=== PATIENT | male | born 1970 ===

== ENCOUNTER 2016-10-12 12:04 | Inpatient (IN) | payer OTHER ==
[2016-10-12 12:05] VITALS: BMI 27.5
[2016-10-12 15:45] LABS: BASO # 0.1 K/uL (0.0-0.2); EOS % 0.6 % (0.0-4.0); HEMATOCRIT 44.3 % (35.0-51.0); LYMPH # 1.6 K/uL (1.0-4.3); LYMPH % 25.6 % (20.0-40.0); MEAN CORPUSCULAR HEMOGLOBIN 29.7 pg (27.0-31.0); MEAN CORPUSCULAR HGB CONC 33.4 g/dL (33.0-37.0); MEAN PLATELET VOLUME 8.4 fL (7.2-11.7); MONO # 0.5 K/uL (0.0-0.8); MONO % 7.6 % (0.0-10.0); NRBC % 0.1 % (0.0-2.0); RED CELL DISTRIBUTION WIDTH 12.5 % (11.5-14.5); WHITE BLOOD COUNT 6.3 K/uL (4.8-10.8)
[2016-10-12 15:46] LABS: MEAN CELL VOLUME 88.9 fL (80.0-94.0)
[2016-10-12 17:00] LABS: CHLORIDE 96 mmol/L (98-107); POTASSIUM 4.8 mmol/L (3.6-5.2); SODIUM 129 mmol/L (132-148)
[2016-10-12 17:02] LABS: BILIRUBIN,TOTAL 0.9 mg/dL (0.2-1.3); GFR AFRICAN-AMERICAN > 60
[2016-10-12 17:03] LABS: ALB/GLOB RATIO 0.9 (1.0-2.1); ALKALINE PHOSPHATASE 91 U/L (38-126); ALT/SGPT 7 U/L (21-72); AST/SGOT 35 U/L (17-59); BLOOD UREA NITROGEN 21 mg/dL (9-20); CALCIUM 8.3 mg/dl (8.6-10.4); CARBON DIOXIDE 20 mmol/L (22-30); GLUCOSE,RANDOM 323 mg/dL (75-110); TOTAL PROTEIN 7.4 g/dL (6.3-8.3)
--- NOTE | 2016-10-12 17:31 | C.PDOC ---
History Of Present Illness Pt was sent in from the clinic by Dr. Arrieta due to a positive cardiac stress test. Time Seen by Provider: 10/12/16 15:17 History Per: Patient Reports Recently: Treated By A Physician Additional History Per: Prior Records Past Medical History Reviewed: Historical Data, Nursing Documentation, Vital Signs Vital Signs: Last Vital Signs Temp 97.7 F 10/12/16 12:14 Pulse 98 H 10/12/16 17:31 Resp 16 10/12/16 17:31 BP 116/69 10/12/16 17:31 Pulse Ox 95 10/12/16 17:37 - Medical History PMH: Diabetes, HTN - [facility] Procedures DRAINAGE OF L FOOT SUBCU/FASCIA, OPEN APPROACH (07/07/15) RESECTION OF LEFT METATARSAL, OPEN APPROACH (07/07/15) Family History: States: Unknown Family Hx - Social History Hx Tobacco Use: No Hx Alcohol Use: No Hx Substance Use: No - Immunization History Hx Tetanus Toxoid Vaccination: No Hx Influenza Vaccination: No Hx Pneumococcal Vaccination: No Review Of Systems Except As Marked, All Systems Reviewed And Found Negative. Constitutional: Negative for: Fever, Weakness Cardiovascular: Negative for: Chest Pain Respiratory: Positive for: SOB with Excertion. Negative for: Shortness of Breath, Hemoptysis Gastrointestinal: Negative for: Vomiting, Abdominal Pain Musculoskeletal: Negative for: Neck Pain Skin: Negative for: Rash Neurological: Negative for: Weakness, Numbness, Seizures, Altered Mental Status Physical Exam - Physical Exam Appears: Non-toxic, No Acute Distress Skin: Normal Color, Warm, Dry, No Rash Head: Atraumatic, Normacephalic Eye(s): bilateral: PERRL, EOMI Neck: Normal ROM, Supple Cardiovascular: Rhythm Regular Respiratory: Normal Breath Sounds, No Accessory Muscle Use Gastrointestinal/Abdominal: Soft, No Tenderness Back: No CVA Tenderness Extremity: Normal ROM, No Calf Tenderness Neurological/Psych: Oriented x3, Normal Motor, Normal Sensation ED Course And Treatment - Laboratory Results Result Diagrams: 10/12/16 15:39 10/12/16 16:37 ECG: Interpreted By Me, Viewed By Me ECG Rhythm: Sinus Rhythm, L BBB ECG Interpretation: No Changes From Prior Rate From EC O2 Sat by Pulse Oximetry: 95 Pulse Ox Interpretation: Normal Disposition Discussed With DrKevan: Florentino Felix Comment: He accepted pt on hospitalist service. Doctor Will See Patient In The: Hospital Counseled Patient/Family Regarding: Studies Performed, Diagnosis - Disposition Disposition: HOSPITALIZED Disposition Time: 17:45 Condition: FAIR - POA Present On Arrival: Poor Glycemic Control - Clinical Impression Clinical Impression: Abnormal cardiovascular stress test, Left bundle branch block
--- NOTE | 2016-10-12 18:14 | CP.PCM.HP ---
Addendum entered and electronically signed by Brian Simmons DO 10/12/16 20:18: Physical exam Cardio: Regular rate, +S1 and S2, + gallop over left sternal border near notch Original Note: <Brian Simmons - Last Filed: 10/12/16 19:47> History of Present Illness - History of Present Illness History of Present Illness: cc: "it architect sent me in" HPI: Patient is a 46 year old male with PMHx of DM and htn presenting to the ED because his it architect, Dr. Arrieta sent him in. He was told that he had an abnormal stress test and needs a cardiac catheterization. He denies acute complaints, he denies any current chest pain, palpitations, dyspnea at rest or exertion. Per hospital records, patient had stress test on 09/11/16 that showed a defect in the mid-inferior wall and in the apical anterior wall, as well as an EKG that shows a left bundle branch block. PMHx: DM, Htn PSHx: R 3rd-5th digit amputation Allergies: NKDA Fam hx: Father- DM Social hx: Denies smoking or drug hx. Occasional alcohol use Present on Admission - Present on Admission Any Indicators Present on Admission: No Review of Systems - Constitutional Constitutional: absent: Chills, Fever, Weight Loss - EENT Eyes: absent: Blurred Vision, Change in Vision - Cardiovascular Cardiovascular: absent: Chest Pain, Claudication, Irregular Heart Rhythm, Leg Edema, Palpitations - Respiratory Respiratory: absent: Cough, Dyspnea, Hemoptysis, Dyspnea on Exertion, Wheezing - Gastrointestinal Gastrointestinal: absent: Abdominal Pain, Constipation, Diarrhea, Nausea, Vomiting - Genitourinary Genitourinary: absent: Difficulty Urinating, Dysuria - Musculoskeletal Musculoskeletal: absent: Back Pain, Myalgias, Numbness, Tingling - Neurological Neurological: absent: Abnormal Movements, Tingling, Tremor, Weakness - Endocrine Endocrine: absent: Fatigue, Palpitations Past Patient History - Tetanus Immunizations Tetanus Immunization: Unknown - Past Medical History & Family History Past Medical History?: Yes - Past Social History Smoking Status: Never Smoked Chewing Tobacco Use: No Cigar Use: No Alcohol: Occasional Drugs: Denies - CARDIAC Hx Hypertension: Yes - PULMONARY Hx Respiratory Disorders: No - NEUROLOGICAL Hx Neurological Disorder: No - HEENT Hx HEENT Problems: No - RENAL Hx Chronic Kidney Disease: No - ENDOCRINE/METABOLIC Hx Diabetes Mellitus Type 1: Yes - HEMATOLOGICAL/ONCOLOGICAL Hx Blood Disorders: No - INTEGUMENTARY Hx Dermatological Problems: No - MUSCULOSKELETAL/RHEUMATOLOGICAL Hx Musculoskeletal Disorders: No Hx Falls: No - GASTROINTESTINAL Hx Gastrointestinal Disorders: No - GENITOURINARY/GYNECOLOGICAL Hx Genitourinary Disorders: No - PSYCHIATRIC Hx Substance Use: No - SURGICAL HISTORY Hx Surgeries: Yes Other/Comment: Right 3 digits amputation foot - ANESTHESIA Hx Anesthesia: No Hx Anesthesia Reactions: No Hx Malignant Hyperthermia: No Meds Allergies/Adverse Reactions: Allergies Allergy/AdvReac Type Severity Reaction Status Date / Time No Known Allergies Allergy Verified 10/12/16 12:14 Physical Exam - Constitutional Appears: Non-toxic, No Acute Distress - Head Exam Head Exam: ATRAUMATIC, NORMAL INSPECTION, NORMOCEPHALIC - Eye Exam Pupil Exam: NORMAL ACCOMODATION, PERRL - ENT Exam ENT Exam: Mucous Membranes Moist - Neck Exam Neck exam: Positive for: Normal Inspection - Respiratory Exam Respiratory Exam: Clear to Auscultation Bilateral, NORMAL BREATHING PATTERN. absent: Prolonged Expiratory Phase, Rales, Rhonchi, Wheezes - Cardiovascular Exam Cardiovascular Exam: REGULAR RHYTHM, +S1, +S2 - GI/Abdominal Exam GI & Abdominal Exam: Normal Bowel Sounds, Soft. absent: Distended, Firm, Tenderness - Extremities Exam Extremities exam: Positive for: normal capillary refill, pedal pulses present Additional comments: right foot amputation digits 3-5, small area of ulceration near former area of 3rd digit - Neurological Exam Neurological exam: Alert, CN II-XII Intact, Oriented x3 - Psychiatric Exam Psychiatric exam: Normal Affect, Normal Mood - Skin Skin Exam: Dry, Intact, Normal Color, Warm Results - Vital Signs Recent Vital Signs: Last Vital Signs Temp 97.7 F 10/12/16 12:14 Pulse 98 H 10/12/16 17:31 Resp 16 10/12/16 17:31 BP 116/69 10/12/16 17:31 Pulse Ox 95 10/12/16 17:46 - Labs Result Diagrams: 10/12/16 15:39 10/12/16 16:37 Assessment & Plan (1) Positive cardiac stress test Status: Acute Comment: Nuclear Stress Test- 09/11/16- defect in mid-inferior wall, defect in apical anterior wall. EKG- LBBB. Consult cardio- Dr. Arrieta. Consult cardio- Dr. Montague. Continue Coreg 3.125mg PO BID. Continue Asa 81mg PO Daily. Continue Simvastatin 20mg PO HS (equivalent). f/u HgbA1C. f/u FLP. f/u ROMIs x 2, MADAY negative x1. BNP 1140 (2) Diabetes mellitus Status: Chronic Comment: f/u HgbA1C. started on Heart Healthy, mod CHO diet. accuchecks ACHS. RISS. Hold metformin due to possible cardiac cath (3) Diabetic ulcer of foot associated with diabetes mellitus due to underlying condition, limited to breakdown of skin Status: Acute Comment: consult podiatry- Dr. Soler (4) Prophylactic measure Status: Acute Comment: Pepcid 20mg PO BID. Heparin 5000U SC Q8h. SCDs <Florentino Felix M - Last Filed: 10/13/16 14:06> Results - Vital Signs Recent Vital Signs: Last Vital Signs Temp 98.0 F 10/13/16 07:00 Pulse 94 H 10/13/16 08:05 Resp 20 10/13/16 07:00 BP 122/81 10/13/16 07:00 Pulse Ox 98 10/13/16 07:00 - Labs Result Diagrams: 10/13/16 06:47 10/13/16 06:47 Labs: Laboratory Results - last 24 hr 10/12/16 10/12/16 10/13/16 22:09 22:55 02:50 WBC RBC Hgb Hct MCV MCH MCHC RDW Plt Count MPV Neut % (Auto) Lymph % (Auto) Cross % (Auto) Eos % (Auto) Baso % (Auto) Neut # Lymph # Cross # Eos # Baso # Sodium Potassium Chloride Carbon Dioxide Anion Gap BUN Creatinine Est GFR ( Amer) Est GFR (Non-Af Amer) POC Glucose (mg/dL) 371 H 318 H Random Glucose Hemoglobin A1c Calcium Total Bilirubin AST ALT Alkaline Phosphatase Total Creatine Kinase 25 L CK-MB (Mass) 0.84 Troponin I, Quant < 0.0120 Total Protein Albumin Globulin Albumin/Globulin Ratio Triglycerides Cholesterol LDL Cholesterol Direct HDL Cholesterol 10/13/16 10/13/16 10/13/16 04:21 06:32 06:47 WBC 5.2 RBC 4.77 Hgb 14.2 Hct 43.0 MCV 90.1 MCH 29.7 MCHC 33.0 RDW 12.1 Plt Count 300 MPV 8.4 Neut % (Auto) 66.4 Lymph % (Auto) 23.9 Cross % (Auto) 7.8 Eos % (Auto) 1.0 Baso % (Auto) 0.9 Neut # 3.5 Lymph # 1.2 Cross # 0.4 Eos # 0.0 Baso # 0.0 Sodium 135 Potassium 4.0 Chloride 96 L Carbon Dioxide 26 Anion Gap 17 BUN 17 Creatinine 0.6 L Est GFR ( Amer) > 60 Est GFR (Non-Af Amer) > 60 POC Glucose (mg/dL) 320 H Random Glucose 326 H Hemoglobin A1c 14.6 H Calcium 8.4 L Total Bilirubin 0.4 AST 18 ALT 17 L D Alkaline Phosphatase 85 Total Creatine Kinase 28 L CK-MB (Mass) 0.68 Troponin I, Quant < 0.0120 Total Protein 6.8 Albumin 3.3 L Globulin 3.6 Albumin/Globulin Ratio 0.9 L Triglycerides 201 H Cholesterol 171 LDL Cholesterol Direct 111 HDL Cholesterol 19 L 10/13/16 12:02 WBC RBC Hgb Hct MCV MCH MCHC RDW Plt Count MPV Neut % (Auto) Lymph % (Auto) [place] % (Auto) Eos % (Auto) Baso % (Auto) Neut # Lymph # Cross # Eos # Baso # Sodium Potassium Chloride Carbon Dioxide Anion Gap BUN Creatinine Est GFR ( Amer) Est GFR (Non-Af Amer) POC Glucose (mg/dL) 361 H Random Glucose Hemoglobin A1c Calcium Total Bilirubin AST ALT Alkaline Phosphatase Total Creatine Kinase CK-MB (Mass) Troponin I, Quant Total Protein Albumin Globulin Albumin/Globulin Ratio Triglycerides Cholesterol LDL Cholesterol Direct HDL Cholesterol Attending/Attestation - Attestation I have personally seen and examined this patient.: Yes I have fully participated in the care of the patient.: Yes I have reviewed all pertinent clinical information: Yes Notes (Text): 10/13/16 14:04 Patient was seen and examined at bedside with the resident at the time of admission Patient doesn't have any chest pain at this time We will request cardiology evaluation for further recommendations We will also request podiatry evaluation because there is no oozing on the amputated foot base Discussed the plan of care with the emergency medical technician basic and agree with the above history and physical and assessment/plan by the resident.
[2016-10-12] MEDS: (Novolin R) Insulin Human Regular 100 units/ml vial SC SCH ×2 (22:04→22:14)
[2016-10-13 07:18] LABS: BASO % 0.9 % (0.0-2.0); LYMPH # 1.2 K/uL (1.0-4.3); LYMPH % 23.9 % (20.0-40.0); MEAN CELL VOLUME 90.1 fL (80.0-94.0); MEAN CORPUSCULAR HEMOGLOBIN 29.7 pg (27.0-31.0); MEAN PLATELET VOLUME 8.4 fL (7.2-11.7); MONO # 0.4 K/uL (0.0-0.8); MONO % 7.8 % (0.0-10.0); NRBC % 0.1 % (0.0-2.0); RED CELL DISTRIBUTION WIDTH 12.1 % (11.5-14.5); WHITE BLOOD COUNT 5.2 K/uL (4.8-10.8)
[2016-10-13 07:36] LABS: CHLORIDE 96 mmol/L (98-107)
[2016-10-13 07:37] LABS: SODIUM 135 mmol/L (132-148)
[2016-10-13 07:39] LABS: CHOLESTEROL 171 mg/dL (0-199)
[2016-10-13 07:40] LABS: ALB/GLOB RATIO 0.9 (1.0-2.1); ALKALINE PHOSPHATASE 85 U/L (38-126); ALT/SGPT 17 U/L (21-72); AST/SGOT 18 U/L (17-59); BILIRUBIN,TOTAL 0.4 mg/dL (0.2-1.3); BLOOD UREA NITROGEN 17 mg/dL (9-20); CARBON DIOXIDE 26 mmol/L (22-30); GFR AFRICAN-AMERICAN > 60; GLUCOSE,RANDOM 326 mg/dL (75-110); TOTAL PROTEIN 6.8 g/dL (6.3-8.3)
[2016-10-13 07:41] LABS: CALCIUM 8.4 mg/dl (8.6-10.4)
[2016-10-13] MEDS: (Novolin R) Insulin Human Regular 100 units/ml vial SC SCH ×4 (08:40→21:41)
--- NOTE | 2016-10-13 09:45 | CP.PCM.PN ---
<Suzanne Sutherland - Last Filed: 10/13/16 13:47> Subjective - Date & Time of Evaluation Date of Evaluation: 10/13/16 Time of Evaluation: 09:45 - Subjective Subjective: Patient seen and examined at bedside. No acute events per nursing. Patient resting comfortably on exam. He denies chest pain, palpitations, shortness of breath, abdominal pain, nausea, vomiting, diarrhea, constipation, dysuria or increased urinary frequency. Objective - Vital Signs/Intake and Output Vital Signs (last 24 hours): Temp Pulse Resp BP Pulse Ox 98.0 F 89 20 122/81 98 10/13/16 07:00 10/13/16 07:00 10/13/16 07:00 10/13/16 07:00 10/13/16 07:00 Intake and Output: 10/13/16 10/13/16 06:59 18:59 Intake Total 620 Balance 620 - Medications Medications: Current Medications Aspirin (Aspirin Chewable) 81 mg PO DAILY [facility] Carvedilol (Coreg) 3.125 mg PO BID [facility] Last Admin: 10/12/16 20:46 Dose: 3.125 mg Famotidine (Pepcid) 20 mg PO BID [facility] Heparin Sodium (Porcine) (Heparin) 5,000 units SC Q8 [facility] Last Admin: 10/13/16 06:33 Dose: 5,000 units Insulin Human Regular (Novolin R) 0 unit SC ACHS [facility] PRN Reason: Protocol Last Admin: 10/13/16 08:40 Dose: 6 unit Rosuvastatin Calcium (Crestor) 5 mg PO HS [facility] Last Admin: 10/12/16 22:07 Dose: 5 mg - Labs Labs: 10/13/16 06:47 10/13/16 06:47 PT 10.8 SECONDS (9.7-12.2) 10/12/16 15:39 INR 1.0 10/12/16 15:39 APTT 28 SECONDS (21-34) 10/12/16 15:39 - Constitutional Appears: Non-toxic, No Acute Distress - Head Exam Head Exam: ATRAUMATIC, NORMAL INSPECTION, NORMOCEPHALIC - Eye Exam Eye Exam: EOMI, Normal appearance, PERRL - ENT Exam ENT Exam: Mucous Membranes Moist, Normal Exam - Neck Exam Neck Exam: Full ROM, Normal Inspection - Respiratory Exam Respiratory Exam: Clear to Ausculation Bilateral, NORMAL BREATHING PATTERN. absent: Rales, Rhonchi, Wheezes - Cardiovascular Exam Cardiovascular Exam: Tachycardia, +S1, +S2. absent: Diastolic murmur, Murmur - GI/Abdominal Exam GI & Abdominal Exam: Soft, Normal Bowel Sounds. absent: Firm, Guarding, Rigid, Tenderness - Extremities Exam Extremities Exam: Full ROM. absent: Pedal Edema, Tenderness Additional comments: right foot amputation digits 3-5, small area of ulceration near former area of 3rd digit - Back Exam Back Exam: NORMAL INSPECTION - Neurological Exam Neurological Exam: Alert, Awake, Oriented x3 - Psychiatric Exam Psychiatric exam: Normal Affect, Normal Mood - Skin Skin Exam: Intact, Normal Color, Warm Assessment and Plan - Assessment and Plan (Free Text) Assessment: (1) Positive cardiac stress test Status: Acute Nuclear Stress Test- 09/11/16- defect in mid-inferior wall, defect in apical anterior wall. EKG- LBBB. Cardiology consult, Dr. Arrieta and Dr. Montague. Continue Coreg 3.125mg PO BID, Aspirin 81mg PO Daily, Simvastatin 20mg PO HS ( equivalent). MADAY - negative Triglycerides 201 HDL 19 Patient possibly for cardiac cath. (2) Diabetes mellitus Status: Chronic Blood glucose 361 Hemoglobin a1c 14.6 Continue on Heart Healthy, mod CHO diet. accuchecks ACHS. RISS - high protocol Lantus 10 U SC given stat. Will start Lantus 10 U SC HS. Hold metformin due to possible cardiac cath (3) Diabetic ulcer of foot associated with diabetes mellitus due to underlying condition, limited to breakdown of skin Status: Acute Podiatry consulted, Dr. Soler Wound debrided at bedside. Plan for santyl to be applied daily. (4) Prophylactic measure Status: Acute Pepcid 20mg PO BID Heparin 5000 U SC Q8h SCDs <Florentino Felix - Last Filed: 10/14/16 09:05> Objective - Vital Signs/Intake and Output Vital Signs (last 24 hours): Temp Pulse Resp BP Pulse Ox 97.9 F 59 L 15 148/93 H 100 10/13/16 23:25 10/14/16 02:49 10/13/16 23:25 10/13/16 23:25 10/13/16 23:25 - Medications Medications: Current Medications Aspirin (Aspirin Chewable) 81 mg PO DAILY [facility] Last Admin: 10/13/16 11:05 Dose: 81 mg Carvedilol (Coreg) 3.125 mg PO BID [facility] Last Admin: 10/13/16 17:47 Dose: Not Given Famotidine (Pepcid) 20 mg PO BID [facility] Last Admin: 10/13/16 17:46 Dose: 20 mg Heparin Sodium (Porcine) (Heparin) 5,000 units SC Q8 [facility] Last Admin: 10/14/16 05:17 Dose: Not Given Insulin Glargine (Lantus) 10 unit SC DAILY [facility] Last Admin: 10/13/16 11:05 Dose: 10 u Insulin Human Regular (Novolin R) 0 unit SC ACHS [facility] PRN Reason: Protocol Last Admin: 10/13/16 21:41 Dose: 3 unit Rosuvastatin Calcium (Crestor) 5 mg PO HS [facility] Last Admin: 10/13/16 21:39 Dose: 5 mg - Labs Labs: 10/14/16 07:07 10/14/16 07:07 PT 11.1 SECONDS (9.7-12.2) 10/14/16 07:07 INR 1.0 10/14/16 07:07 APTT 31 SECONDS (21-34) 10/14/16 07:07 Attending/Attestation - Attestation I have personally seen and examined this patient.: Yes I have fully participated in the care of the patient.: Yes I have reviewed all pertinent clinical information, including history, physical exam and plan: Yes Notes (Text): 10/14/16 09:04 Patient was seen and examined at bedside with the resident Patient does not have any complaint of for chest discomfort or palpitation at this time Podiatry evaluated the patient and bedside debridement and dressing applied Patient's diabetes is uncontrolled. We will titrate the medication for optimal control Patient will continue current medical management for coronary artery disease. Patient had an abnormal stress test and he is scheduled for cardiac catheterization I discussed the plan of care with the resident and agree with the assessment and plan as documented above.
--- NOTE | 2016-10-13 10:29 | CP.PCM.CON ---
History of Present Illness - History of Present Illness History of Present Illness: 46 y/o male seen on podiatry consult for ulceration of right foot s/p amputation 4 years ago. Patent states that roughly 4 years ago he had an amputation to his right foot. Patient states that he thinks that it never healed correctly b/c there was always some drainage in his socks after he would walk but did not think enough fo it to present to a doctor. Patient states that he was also cutting his nails when he nicked his right hallucal nail. States that he is admitted for cardiac cath placement. Denies any other trauma to the right foot. Denies any f/c/n/v/ sob. Past Patient History - Tetanus Immunizations Tetanus Immunization: Unknown - Past Medical History & Family History Past Medical History?: Yes - Past Social History Smoking Status: Never Smoked - CARDIAC Hx Hypertension: Yes - PULMONARY Hx Respiratory Disorders: No - NEUROLOGICAL Hx Neurological Disorder: No - HEENT Hx HEENT Problems: No - RENAL Hx Chronic Kidney Disease: No - ENDOCRINE/METABOLIC Hx Diabetes Mellitus Type 1: Yes - HEMATOLOGICAL/ONCOLOGICAL Hx Blood Disorders: No - INTEGUMENTARY Hx Dermatological Problems: No - MUSCULOSKELETAL/RHEUMATOLOGICAL Hx Musculoskeletal Disorders: No Hx Falls: No - GASTROINTESTINAL Hx Gastrointestinal Disorders: No - GENITOURINARY/GYNECOLOGICAL Hx Genitourinary Disorders: No - PSYCHIATRIC Hx Substance Use: No - SURGICAL HISTORY Hx Surgeries: Yes Other/Comment: Right 3 digits amputation foot - ANESTHESIA Hx Anesthesia: No Hx Anesthesia Reactions: No Hx Malignant Hyperthermia: No Meds Allergies/Adverse Reactions: Allergies Allergy/AdvReac Type Severity Reaction Status Date / Time No Known Allergies Allergy Verified 10/12/16 12:14 - Medications Medications: Current Medications Aspirin (Aspirin Chewable) 81 mg PO DAILY [facility] Carvedilol (Coreg) 3.125 mg PO BID [facility] Last Admin: 10/12/16 20:46 Dose: 3.125 mg Famotidine (Pepcid) 20 mg PO BID [facility] Heparin Sodium (Porcine) (Heparin) 5,000 units SC Q8 [facility] Last Admin: 10/13/16 06:33 Dose: 5,000 units Insulin Human Regular (Novolin R) 0 unit SC ACHS [facility] PRN Reason: Protocol Rosuvastatin Calcium (Crestor) 5 mg PO HS [facility] Last Admin: 10/12/16 22:07 Dose: 5 mg Physical Exam - Constitutional Appears: Well, Non-toxic, No Acute Distress - Neurological Exam Neurological exam: Alert, Oriented x3 - Psychiatric Exam Psychiatric exam: Normal Affect, Normal Mood - Skin Skin Exam: Normal Color, Warm - Additional Findings Additional findings: Vasc: DP 2/4, PT 1/4, Temp gradient wnl, Cap fill time < 4 s x 7 digit Derm: NO edema, no erythema, roughly 1.4 cm x .4 cm open lesions that is not deep on the plantar distal aspect of the right foot at ulceration site, diffuse fibrotic covering, surrounding skin is hypertrophic from healing process, no erythema, no clinical signs of infection noted, area of injury to nail appears to be healed. 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 Results - Vital Signs Recent Vital Signs: Last Vital Signs Temp 98.0 F 10/13/16 07:00 Pulse 94 H 10/13/16 08:05 Resp 20 10/13/16 07:00 BP 122/81 10/13/16 07:00 Pulse Ox 98 10/13/16 07:00 - Labs Result Diagrams: 10/13/16 06:47 10/13/16 06:47 Labs: Laboratory Results - last 24 hr 10/12/16 10/12/16 10/13/16 22:09 22:55 02:50 WBC RBC Hgb Hct MCV MCH MCHC RDW Plt Count MPV Neut % (Auto) Lymph % (Auto) [place] % (Auto) Eos % (Auto) Baso % (Auto) Neut # Lymph # [place] # Eos # Baso # Sodium Potassium Chloride Carbon Dioxide Anion Gap BUN Creatinine Est GFR ( Amer) Est GFR (Non-Af Amer) POC Glucose (mg/dL) 371 H 318 H Random Glucose Hemoglobin A1c Calcium Total Bilirubin AST ALT Alkaline Phosphatase Total Creatine Kinase 25 L CK-MB (Mass) 0.84 Troponin I, Quant < 0.0120 Total Protein Albumin Globulin Albumin/Globulin Ratio Triglycerides Cholesterol LDL Cholesterol Direct HDL Cholesterol 10/13/16 10/13/16 10/13/16 04:21 06:32 06:47 WBC 5.2 RBC 4.77 Hgb 14.2 Hct 43.0 MCV 90.1 MCH 29.7 MCHC 33.0 RDW 12.1 Plt Count 300 MPV 8.4 Neut % (Auto) 66.4 Lymph % (Auto) 23.9 [place] % (Auto) 7.8 Eos % (Auto) 1.0 Baso % (Auto) 0.9 Neut # 3.5 Lymph # 1.2 [place] # 0.4 Eos # 0.0 Baso # 0.0 Sodium 135 Potassium 4.0 Chloride 96 L Carbon Dioxide 26 Anion Gap 17 BUN 17 Creatinine 0.6 L Est GFR ( Amer) > 60 Est GFR (Non-Af Amer) > 60 POC Glucose (mg/dL) 320 H Random Glucose 326 H Hemoglobin A1c 14.6 H Calcium 8.4 L Total Bilirubin 0.4 AST 18 ALT 17 L D Alkaline Phosphatase 85 Total Creatine Kinase 28 L CK-MB (Mass) 0.68 Troponin I, Quant < 0.0120 Total Protein 6.8 Albumin 3.3 L Globulin 3.6 Albumin/Globulin Ratio 0.9 L Triglycerides 201 H Cholesterol 171 LDL Cholesterol Direct 111 HDL Cholesterol 19 L Assessment & Plan - Assessment and Plan (Free Text) Assessment: 46 y/o male with ulceration to right foot amputation site s/p right digit amputation roughly 4 years ago. Plan: Patient evaluated and chart reviewed Discussed with Dr. Soler Area debrided with #15 blade w/o complication Rx placed for santyl Redressed with DSD and to have santyl applied daily. Will continue to follow while admitted.
[2016-10-13] MEDS: (Lantus) Insulin Glargine, Recombinant SC SCH (11:05)
--- NOTE | 2016-10-13 12:25 | CARD ---
APPROVED REPORT EKG Measurement Heart [id number] <Conclusion> Normal sinus rhythm Left bundle branch block Abnormal ECG
--- NOTE | 2016-10-13 14:59 | CP.PCM.CON ---
<Lee Souza - Last Filed: 10/13/16 17:20> History of Present Illness - History of Present Illness History of Present Illness: Cardiology Consultation Note Dr. Arireta CC: Abnormal Stress Test HPI: This is a 46 year old male with a PMH notable for uncontrolled DM and HTN presenting for cardiac evaluation s/p abnormal stress test. The patient was referred to the hospital by Dr. Arrieta for abnormal stress test on 10/12/16. Stress test with defect in the mid-inferior wall and apical anterior wall. EKG on admission shows LBBB consistent with prior EKG dating back to 2012. The patient also has had a previous echocardiogram notable for normal LVEF in 2016. Patient referred to cardiology for possible cardiac catheterization. The patient presently denies fever, chills, headache, chest pain, palpitations, shortness of breath, abdominal pain, N/V/D/C, changes in bowel/bladder, and extremity paresthesias. 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 Review of Systems - Constitutional Constitutional: absent: Chills, Fatigue, Fever - EENT Eyes: absent: Blind Spots, Change in Vision Ears: absent: Decreased Hearing, Tinnitus Nose/Mouth/Throat: absent: Nose Pain, Facial Pain, Neck Pain - Cardiovascular Cardiovascular: absent: Chest Pain, Claudication, Leg Edema, Palpitations, Pedal Edema, Syncope - Respiratory Respiratory: absent: Cough, Dyspnea, Dyspnea on Exertion - Gastrointestinal Gastrointestinal: absent: Abdominal Pain, Constipation, Diarrhea, Nausea, Vomiting - Genitourinary Genitourinary: absent: Change in Urinary Stream - Musculoskeletal Musculoskeletal: absent: Abnormal Gait, Stiffness, Tingling - Integumentary Integumentary: absent: Lesions, Rash, Wounds - Neurological Neurological: absent: Focal Weakness, Memory Loss, Paresthesias, Weakness - Endocrine Endocrine: Polydipsia, Polyuria. absent: Cold Intolorance, Heat Intolorance, Polyphagia Past Patient History - Tetanus Immunizations Tetanus Immunization: Unknown - Past Medical History & Family History Past Medical History?: Yes - Past Social History Smoking Status: Never Smoked - CARDIAC Hx Hypertension: Yes - PULMONARY Hx Respiratory Disorders: No - NEUROLOGICAL Hx Neurological Disorder: No - HEENT Hx HEENT Problems: No - RENAL Hx Chronic Kidney Disease: No - ENDOCRINE/METABOLIC Hx Diabetes Mellitus Type 1: Yes - HEMATOLOGICAL/ONCOLOGICAL Hx Blood Disorders: No - INTEGUMENTARY Hx Dermatological Problems: No - MUSCULOSKELETAL/RHEUMATOLOGICAL Hx Musculoskeletal Disorders: No Hx Falls: No - GASTROINTESTINAL Hx Gastrointestinal Disorders: No - GENITOURINARY/GYNECOLOGICAL Hx Genitourinary Disorders: No - PSYCHIATRIC Hx Substance Use: No - SURGICAL HISTORY Hx Surgeries: Yes Other/Comment: Right 3 digits amputation foot - ANESTHESIA Hx Anesthesia: No Hx Anesthesia Reactions: No Hx Malignant Hyperthermia: No Meds Allergies/Adverse Reactions: Allergies Allergy/AdvReac Type Severity Reaction Status Date / Time No Known Allergies Allergy Verified 10/12/16 12:14 - Medications Medications: Current Medications Aspirin (Aspirin Chewable) 81 mg PO DAILY [facility] Last Admin: 10/13/16 11:05 Dose: 81 mg Carvedilol (Coreg) 3.125 mg PO BID [facility] Last Admin: 10/13/16 11:07 Dose: 3.125 mg Famotidine (Pepcid) 20 mg PO BID [facility] Last Admin: 10/13/16 11:05 Dose: 20 mg Heparin Sodium (Porcine) (Heparin) 5,000 units SC Q8 [facility] Last Admin: 10/13/16 06:33 Dose: 5,000 units Insulin Glargine (Lantus) 10 unit SC DAILY [facility] Last Admin: 10/13/16 11:05 Dose: 10 u Insulin Human Regular (Novolin R) 0 unit SC ACHS [facility] PRN Reason: Protocol Last Admin: 10/13/16 13:33 Dose: 10 unit Rosuvastatin Calcium (Crestor) 5 mg PO HS [facility] Last Admin: 10/12/16 22:07 Dose: 5 mg Physical Exam - Constitutional Appears: Well, No Acute Distress - Head Exam Head Exam: ATRAUMATIC, NORMAL INSPECTION, NORMOCEPHALIC - Eye Exam Eye Exam: EOMI, Normal appearance, PERRL - ENT Exam ENT Exam: Mucous Membranes Moist, Normal Exam - Neck Exam Neck exam: Positive for: Full Rom, Normal Inspection. Negative for: Lymphadenopathy - Respiratory Exam Respiratory Exam: Clear to Auscultation Bilateral, NORMAL BREATHING PATTERN. absent: Rhonchi, Wheezes - Cardiovascular Exam Cardiovascular Exam: REGULAR RHYTHM, RRR, +S1, +S2. absent: Diastolic murmur, Systolic Murmur - GI/Abdominal Exam GI & Abdominal Exam: Normal Bowel Sounds, Soft. absent: Diminished Bowel Sounds , Distended, Firm, Guarding, Tenderness - Extremities Exam Extremities exam: Positive for: normal inspection - Back Exam Back exam: NORMAL INSPECTION. absent: CVA tenderness (L), CVA tenderness (R) - Neurological Exam Neurological exam: Alert, CN II-XII Intact, Normal Gait, Oriented x3 - Skin Skin Exam: Dry, Intact, Normal Color, Warm Results - Vital Signs Recent Vital Signs: Last Vital Signs Temp 98.0 F 10/13/16 07:00 Pulse 94 H 10/13/16 08:05 Resp 20 10/13/16 07:00 BP 122/81 10/13/16 07:00 Pulse Ox 98 10/13/16 07:00 - Labs Result Diagrams: 10/13/16 06:47 10/13/16 06:47 Labs: Laboratory Results - last 24 hr 10/12/16 10/12/16 10/13/16 22:09 22:55 02:50 WBC RBC Hgb Hct MCV MCH MCHC RDW Plt Count MPV Neut % (Auto) Lymph % (Auto) Pierce % (Auto) Eos % (Auto) Baso % (Auto) Neut # Lymph # Pierce # Eos # Baso # Sodium Potassium Chloride Carbon Dioxide Anion Gap BUN Creatinine Est GFR ( Amer) Est GFR (Non-Af Amer) POC Glucose (mg/dL) 371 H 318 H Random Glucose Hemoglobin A1c Calcium Total Bilirubin AST ALT Alkaline Phosphatase Total Creatine Kinase 25 L CK-MB (Mass) 0.84 Troponin I, Quant < 0.0120 Total Protein Albumin Globulin Albumin/Globulin Ratio Triglycerides Cholesterol LDL Cholesterol Direct HDL Cholesterol 10/13/16 10/13/16 10/13/16 04:21 06:32 06:47 WBC 5.2 RBC 4.77 Hgb 14.2 Hct 43.0 MCV 90.1 MCH 29.7 MCHC 33.0 RDW 12.1 Plt Count 300 MPV 8.4 Neut % (Auto) 66.4 Lymph % (Auto) 23.9 Pierce % (Auto) 7.8 Eos % (Auto) 1.0 Baso % (Auto) 0.9 Neut # 3.5 Lymph # 1.2 Pierce # 0.4 Eos # 0.0 Baso # 0.0 Sodium 135 Potassium 4.0 Chloride 96 L Carbon Dioxide 26 Anion Gap 17 BUN 17 Creatinine 0.6 L Est GFR ( Amer) > 60 Est GFR (Non-Af Amer) > 60 POC Glucose (mg/dL) 320 H Random Glucose 326 H Hemoglobin A1c 14.6 H Calcium 8.4 L Total Bilirubin 0.4 AST 18 ALT 17 L D Alkaline Phosphatase 85 Total Creatine Kinase 28 L CK-MB (Mass) 0.68 Troponin I, Quant < 0.0120 Total Protein 6.8 Albumin 3.3 L Globulin 3.6 Albumin/Globulin Ratio 0.9 L Triglycerides 201 H Cholesterol 171 LDL Cholesterol Direct 111 HDL Cholesterol 19 L 10/13/16 12:02 WBC RBC Hgb Hct MCV MCH MCHC RDW Plt Count MPV Neut % (Auto) Lymph % (Auto) Pierce % (Auto) Eos % (Auto) Baso % (Auto) Neut # Lymph # Pierce # Eos # Baso # Sodium Potassium Chloride Carbon Dioxide Anion Gap BUN Creatinine Est GFR ( Amer) Est GFR (Non-Af Amer) POC Glucose (mg/dL) 361 H Random Glucose Hemoglobin A1c Calcium Total Bilirubin AST ALT Alkaline Phosphatase Total Creatine Kinase CK-MB (Mass) Troponin I, Quant Total Protein Albumin Globulin Albumin/Globulin Ratio Triglycerides Cholesterol LDL Cholesterol Direct HDL Cholesterol Assessment & Plan (1) Positive cardiac stress test Status: Acute (2) Hypertension Status: Chronic (3) Left bundle branch block Status: Chronic (4) Uncontrolled diabetes mellitus Status: Chronic - Assessment and Plan (Free Text) Plan: 1.) Inferior and Anterior-apical Myocardial Wall Defects on Nuclear Stress Test - patient for cardiac catheterization tomorrow with Dr. Dixon - r/o ischemic cardiomyopathy - if no coronary obstruction, patient may require ICD placement - NPO after midnight - continue Coreg 3.125mg PO BID - continue Aspirin 81mg PO daily - will consider adding MARLENE inhibitor to medical regimen - monitor BP- normotensive currently - hemodynamically stable at this time - heart healthy diet - maintain euglycemia (A1c = 14.6) Case Discussed with Dr. Berny Souza PGY1 - Date & Time Date: 10/13/16 Time: 15:05 <Peter Arrieta - Last Filed: 10/15/16 21:28> Meds - Medications Medications: Current Medications Aspirin (Aspirin Chewable) 81 mg PO DAILY [facility] Last Admin: 10/15/16 09:12 Dose: 81 mg Carvedilol (Coreg) 3.125 mg PO BID [facility] Last Admin: 10/15/16 17:13 Dose: 3.125 mg Collagenase (Santyl) 0 gm TOP DAILY [facility] Last Admin: 10/15/16 09:13 Dose: 1 applic Famotidine (Pepcid) 20 mg PO BID [facility] Last Admin: 10/15/16 17:13 Dose: 20 mg Heparin Sodium (Porcine) (Heparin) 5,000 units SC Q8 [facility] Last Admin: 10/15/16 14:00 Dose: Not Given Insulin Aspart (Novolog Mix 70/30 (70/30 Units/Ml)) 20 units SC BIDAC [facility] Insulin Human Regular (Novolin R) 0 unit SC ACHS [facility] PRN Reason: Protocol Last Admin: 10/15/16 17:18 Dose: 4 unit Rosuvastatin Calcium (Crestor) 5 mg PO HS [facility] Last Admin: 10/15/16 21:20 Dose: 5 mg Results - Vital Signs Recent Vital Signs: Last Vital Signs Temp 97.9 F 10/15/16 16:08 Pulse 95 H 10/15/16 16:08 Resp 20 10/15/16 16:08 BP 149/97 H 10/15/16 16:08 Pulse Ox 100 10/15/16 16:08 - Labs Result Diagrams: 10/15/16 07:22 10/15/16 07:22 Labs: Laboratory Results - last 24 hr 10/15/16 10/15/16 10/15/16 06:26 07:22 11:28 WBC 6.2 RBC 4.86 Hgb 14.6 Hct 44.2 MCV 90.8 MCH 30.0 MCHC 33.1 RDW 12.7 Plt Count 304 MPV 8.6 Neut % (Auto) 71.5 Lymph % (Auto) 21.3 Pierce % (Auto) 5.3 Eos % (Auto) 1.0 Baso % (Auto) 0.9 Neut # 4.4 Lymph # 1.3 Pierce # 0.3 Eos # 0.1 Baso # 0.1 Sodium 136 Potassium 4.8 Chloride 96 L Carbon Dioxide 31 H Anion Gap 14 BUN 19 Creatinine 0.8 Est GFR ( Amer) > 60 Est GFR (Non-Af Amer) > 60 POC Glucose (mg/dL) 381 H 306 H Random Glucose 397 H Calcium 8.8 Magnesium 2.1 Total Bilirubin 0.4 AST 15 L ALT 16 L D Alkaline Phosphatase 93 Total Protein 7.6 Albumin 3.7 Globulin 3.9 Albumin/Globulin Ratio 1.0 10/15/16 17:15 WBC RBC Hgb Hct MCV MCH MCHC RDW Plt Count MPV Neut % (Auto) Lymph % (Auto) Pierce % (Auto) Eos % (Auto) Baso % (Auto) Neut # Lymph # Pierce # Eos # Baso # Sodium Potassium Chloride Carbon Dioxide Anion Gap BUN Creatinine Est GFR ( Amer) Est GFR (Non-Af Amer) POC Glucose (mg/dL) 243 H Random Glucose Calcium Magnesium Total Bilirubin AST ALT Alkaline Phosphatase Total Protein Albumin Globulin Albumin/Globulin Ratio Attending/Attestation - Attestation I have personally seen and examined this patient.: Yes I have fully participated in the care of the patient.: Yes I have reviewed all pertinent clinical information: Yes Notes (Text): 10/15/16 21:28 cardiac cath for positive stress and if negative for ischeic cmp bi v ICD
[2016-10-14 07:27] LABS: BASO % 0.7 % (0.0-2.0); EOS # 0.1 K/uL (0.0-0.7); EOS % 1.2 % (0.0-4.0); HEMATOCRIT 45.1 % (35.0-51.0); LYMPH # 1.4 K/uL (1.0-4.3); LYMPH % 22.7 % (20.0-40.0); MEAN CELL VOLUME 89.9 fL (80.0-94.0); MEAN CORPUSCULAR HEMOGLOBIN 29.8 pg (27.0-31.0); MEAN CORPUSCULAR HGB CONC 33.1 g/dL (33.0-37.0); MEAN PLATELET VOLUME 8.6 fL (7.2-11.7); MONO # 0.4 K/uL (0.0-0.8); NRBC % 0.1 % (0.0-2.0); RED CELL DISTRIBUTION WIDTH 12.7 % (11.5-14.5)
[2016-10-14 07:37] LABS: CHLORIDE 94 mmol/L (98-107)
[2016-10-14 07:38] LABS: POTASSIUM 4.7 mmol/L (3.6-5.2); SODIUM 136 mmol/L (132-148)
[2016-10-14 07:40] LABS: ALB/GLOB RATIO 0.9 (1.0-2.1); AST/SGOT 14 U/L (17-59); BILIRUBIN,TOTAL 0.4 mg/dL (0.2-1.3); CARBON DIOXIDE 29 mmol/L (22-30); GFR AFRICAN-AMERICAN > 60; TOTAL PROTEIN 7.4 g/dL (6.3-8.3)
[2016-10-14 07:41] LABS: ALKALINE PHOSPHATASE 87 U/L (38-126); ALT/SGPT 13 U/L (21-72); BLOOD UREA NITROGEN 22 mg/dL (9-20); CALCIUM 8.7 mg/dl (8.6-10.4); GLUCOSE,RANDOM 365 mg/dL (75-110); MAGNESIUM 2.1 mg/dL (1.6-2.3)
[2016-10-14] MEDS: (Novolin R) Insulin Human Regular 100 units/ml vial SC SCH ×4 (09:14→21:11)
[2016-10-14] MEDS: (Lantus) Insulin Glargine, Recombinant SC SCH (09:14)
--- NOTE | 2016-10-14 10:13 | CP.PCM.PN ---
<Lee Souza - Last Filed: 10/14/16 16:38> Subjective - Date & Time of Evaluation Date of Evaluation: 10/14/16 Time of Evaluation: 10:10 - Subjective Subjective: Cardiology Progress Note Dr. Arrieta Patient seen adn examinaed at the bedside. No acute distress. No acute events overnight. Nursing staff reports no issues. Patient's cardiac cath was rescheduled from this morning per general office assistant. Patient's diet was resumed. The patient has no cardiopulmonary complaints at this time. The patient denies fever, chills, headache, chest pain, SOB, abdominal pain, N/V/D/C , changes in bowel/bladder, and extremity paresthesias. Objective - Vital Signs/Intake and Output Vital Signs (last 24 hours): Temp Pulse Resp BP Pulse Ox 97.9 F 83 20 99/67 L 99 10/14/16 09:24 10/14/16 09:24 10/14/16 09:24 10/14/16 09:24 10/14/16 09:24 - Medications Medications: Current Medications Aspirin (Aspirin Chewable) 81 mg PO DAILY [facility] Last Admin: 10/14/16 09:15 Dose: 81 mg Carvedilol (Coreg) 3.125 mg PO BID [facility] Last Admin: 10/14/16 09:15 Dose: 3.125 mg Famotidine (Pepcid) 20 mg PO BID [facility] Last Admin: 10/14/16 09:15 Dose: 20 mg Heparin Sodium (Porcine) (Heparin) 5,000 units SC Q8 [facility] Last Admin: 10/14/16 05:17 Dose: Not Given Insulin Glargine (Lantus) 10 unit SC DAILY [facility] Last Admin: 10/14/16 09:14 Dose: 10 u Insulin Human Regular (Novolin R) 0 unit SC ACHS [facility] PRN Reason: Protocol Last Admin: 10/14/16 09:14 Dose: 8 unit Rosuvastatin Calcium (Crestor) 5 mg PO HS [facility] Last Admin: 10/13/16 21:39 Dose: 5 mg - Labs Labs: 10/14/16 07:07 10/14/16 07:07 PT 11.1 SECONDS (9.7-12.2) 10/14/16 07:07 INR 1.0 10/14/16 07:07 APTT 31 SECONDS (21-34) 10/14/16 07:07 - Additional Findings Additional findings: - Constitutional Appears: Well, No Acute Distress - Head Exam Head Exam: ATRAUMATIC, NORMAL INSPECTION, NORMOCEPHALIC - Eye Exam Eye Exam: EOMI, Normal appearance, PERRL - ENT Exam ENT Exam: Mucous Membranes Moist, Normal Exam - Neck Exam Neck exam: Positive for: Full Rom, Normal Inspection. Negative for: Lymphadenopathy - Respiratory Exam Respiratory Exam: Clear to Auscultation Bilateral, NORMAL BREATHING PATTERN. absent: Rhonchi, Wheezes - Cardiovascular Exam Cardiovascular Exam: REGULAR RHYTHM, RRR, +S1, +S2. absent: Diastolic murmur, Systolic Murmur - GI/Abdominal Exam GI & Abdominal Exam: Normal Bowel Sounds, Soft. absent: Diminished Bowel Sounds , Distended, Firm, Guarding, Tenderness - Extremities Exam Extremities exam: Positive for: normal inspection - Back Exam Back exam: NORMAL INSPECTION. absent: CVA tenderness (L), CVA tenderness (R) - Neurological Exam Neurological exam: Alert, CN II-XII Intact, Normal Gait, Oriented x3 - Skin Skin Exam: Dry, Intact, Normal Color, Warm Assessment and Plan (1) Hypertension Status: h (2) Left bundle branch block Status: h (3) Positive cardiac stress test Status: c (4) Uncontrolled diabetes mellitus Status: h - Assessment and Plan (Free Text) Plan: 1.) Inferior and Anterior-apical Myocardial Wall Defects on Nuclear Stress Test - patient with require cardiac cath (with Dr. Dixon)- rescheduled from this morning to tomorrow - r/o ischemic cardiomyopathy - if no coronary obstruction, patient may require ICD placement - Heart Healthy Diet - Patient will be NPO past midnight - continue Coreg 3.125mg PO BID - continue Aspirin 81mg PO daily - will consider adding MARLENE inhibitor to medical regimen - monitor BP- normotensive currently - hemodynamically stable at this time - maintain euglycemia (A1c = 14.6) Case Discussed with Dr. Berny Souza PGY1 <Peter Arrieta - Last Filed: 11/27/16 09:48> Objective - Vital Signs/Intake and Output Vital Signs (last 24 hours): Temp Pulse Resp BP Pulse Ox 97.2 F L 73 20 120/71 96 10/19/16 11:49 10/19/16 11:49 10/19/16 11:49 10/19/16 11:49 10/19/16 11:49 - Labs Labs: 10/17/16 06:28 10/17/16 06:28 PT 11.1 SECONDS (9.7-12.2) 10/14/16 07:07 INR 1.0 10/14/16 07:07 APTT 31 SECONDS (21-34) 10/14/16 07:07 Attending/Attestation - Attestation I have personally seen and examined this patient.: Yes I have fully participated in the care of the patient.: Yes I have reviewed all pertinent clinical information, including history, physical exam and plan: Yes Notes (Text): 11/27/16 09:48 tolerating PO no cp
--- NOTE | 2016-10-14 10:42 | CP.PCM.PN ---
Subjective - Date & Time of Evaluation Date of Evaluation: 10/14/16 Time of Evaluation: 10:40 - Subjective Subjective: 46 y/o male seen with ulceration on plantar surface of previous amputation site right foot. Patient is doing well today, no complaints. Is s/p cardiac cath placement. Denies any pain in his foot. Denies any acute overnight events. Denies any f/c/n /v/sob. Objective - Vital Signs/Intake and Output Vital Signs (last 24 hours): Temp Pulse Resp BP Pulse Ox 97.9 F 83 20 99/67 L 99 10/14/16 09:24 10/14/16 09:24 10/14/16 09:24 10/14/16 09:24 10/14/16 09:24 - Medications Medications: Current Medications Aspirin (Aspirin Chewable) 81 mg PO DAILY [facility] Last Admin: 10/14/16 09:15 Dose: 81 mg Carvedilol (Coreg) 3.125 mg PO BID [facility] Last Admin: 10/14/16 09:15 Dose: 3.125 mg Famotidine (Pepcid) 20 mg PO BID [facility] Last Admin: 10/14/16 09:15 Dose: 20 mg Heparin Sodium (Porcine) (Heparin) 5,000 units SC Q8 [facility] Last Admin: 10/14/16 05:17 Dose: Not Given Insulin Glargine (Lantus) 10 unit SC DAILY [facility] Last Admin: 10/14/16 09:14 Dose: 10 u Insulin Human Regular (Novolin R) 0 unit SC ACHS [facility] PRN Reason: Protocol Last Admin: 10/14/16 09:14 Dose: 8 unit Rosuvastatin Calcium (Crestor) 5 mg PO HS [facility] Last Admin: 10/13/16 21:39 Dose: 5 mg - Labs Labs: 10/14/16 07:07 10/14/16 07:07 PT 11.1 SECONDS (9.7-12.2) 10/14/16 07:07 INR 1.0 10/14/16 07:07 APTT 31 SECONDS (21-34) 10/14/16 07:07 - Constitutional Appears: Well, Non-toxic, No Acute Distress - Neurological Exam Neurological Exam: Alert, Awake, Oriented x3 - Psychiatric Exam Psychiatric exam: Normal Affect, Normal Mood - Skin Skin Exam: Normal Color, Warm - Additional Findings Additional findings: Vasc: DP 2/4, PT 1/4, Temp gradient wnl, Cap fill time < 4 s x 7 digit Derm: NO edema, no erythema, roughly 1.4 cm x .4 cm open lesions that is not deep on the plantar distal aspect of the right foot at ulceration site, diffuse fibrotic covering, surrounding skin is hypertrophic from healing process, no erythema, no clinical signs of infection noted, area of injury to nail appears to be healed. 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 Plan: Patient evaluated and chart reviewed. Dsicussed with Dr. Soler Redressed with bacitracin DSD. Wound is stable and will just need local wound care. Can f/u with Dr. Soler when d/c's. Will continue to follow for local wound care while admitted.
--- NOTE | 2016-10-14 16:30 | CP.PCM.PN ---
<Suzanne Sutherland - Last Filed: 10/14/16 16:24> Subjective - Date & Time of Evaluation Date of Evaluation: 10/14/16 Time of Evaluation: 16:24 - Subjective Subjective: Patient seen and examined at bedside. Patient is resting comfortably. He is scheduled for cardiac catheterization tomorrow. Patient denies chest pain, palpitations, shortness of breath. He is tolerating diet well and having normal bowel movements. Objective - Vital Signs/Intake and Output Vital Signs (last 24 hours): Temp Pulse Resp BP Pulse Ox 97.5 F L 79 20 122/82 100 10/14/16 15:33 10/14/16 15:33 10/14/16 15:33 10/14/16 15:33 10/14/16 15:33 - Medications Medications: Current Medications Aspirin (Aspirin Chewable) 81 mg PO DAILY [facility] Last Admin: 10/14/16 09:15 Dose: 81 mg Carvedilol (Coreg) 3.125 mg PO BID [facility] Last Admin: 10/14/16 09:15 Dose: 3.125 mg Collagenase (Santyl) 0 gm TOP DAILY [facility] Famotidine (Pepcid) 20 mg PO BID [facility] Last Admin: 10/14/16 09:15 Dose: 20 mg Heparin Sodium (Porcine) (Heparin) 5,000 units SC Q8 [facility] Last Admin: 10/14/16 14:01 Dose: 5,000 units Insulin Aspart (Novolog Mix 70/30 (70/30 Units/Ml)) 15 units SC BIDAC [facility] Insulin Human Regular (Novolin R) 0 unit SC ACHS [facility] PRN Reason: Protocol Last Admin: 10/14/16 12:56 Dose: 10 unit Rosuvastatin Calcium (Crestor) 5 mg PO HS [facility] Last Admin: 10/13/16 21:39 Dose: 5 mg - Labs Labs: 10/14/16 07:07 10/14/16 07:07 PT 11.1 SECONDS (9.7-12.2) 10/14/16 07:07 INR 1.0 10/14/16 07:07 APTT 31 SECONDS (21-34) 10/14/16 07:07 - Constitutional Appears: Non-toxic, No Acute Distress - Head Exam Head Exam: ATRAUMATIC, NORMAL INSPECTION, NORMOCEPHALIC - Eye Exam Eye Exam: EOMI, Normal appearance, PERRL - ENT Exam ENT Exam: Mucous Membranes Moist - Neck Exam Neck Exam: Full ROM, Normal Inspection - Respiratory Exam Respiratory Exam: Clear to Ausculation Bilateral, NORMAL BREATHING PATTERN. absent: Rales, Rhonchi, Wheezes - Cardiovascular Exam Cardiovascular Exam: +S1, +S2. absent: Tachycardia, Murmur - GI/Abdominal Exam GI & Abdominal Exam: Soft, Normal Bowel Sounds. absent: Tenderness - Extremities Exam Additional comments: sterile dressing applied to right foot - Back Exam Back Exam: NORMAL INSPECTION - Neurological Exam Neurological Exam: Alert, Awake, Oriented x3 - Psychiatric Exam Psychiatric exam: Normal Affect, Normal Mood - Skin Skin Exam: Dry, Intact, Normal Color Assessment and Plan - Assessment and Plan (Free Text) Assessment: (1) Inferior and Anterior-apical Myocardial Wall Defects on Nuclear Stress Test Status: Acute Nuclear Stress Test- 09/11/16- defect in mid-inferior wall, defect in apical anterior wall. Patient rescheduled for cardiac cath with Dr. Dixon tomorrow. EKG- LBBB. Cardiology consult, Dr. Arrieta and Dr. Montague. Continue Coreg 3.125mg PO BID, Aspirin 81mg PO Daily, Simvastatin 20mg PO HS ( equivalent). MADAY - negative Triglycerides 201 HDL 19 Patient possibly for cardiac cath. (2) Uncontrolled Diabetes mellitus Status: Chronic Blood glucose 365 Started on Novolog 70/30 15 U SC BID Patient to be educated on insulin use Hemoglobin a1c 14.6 Continue on Heart Healthy, mod CHO diet. accuchecks ACHS. RISS - high protocol (3) Diabetic ulcer of foot associated with diabetes mellitus due to underlying condition, limited to breakdown of skin Status: Acute Podiatry consulted, Dr. Soler Wound debrided at bedside (10/13). Continue santyl to affected area daily. (4) Prophylactic measure Status: Acute Pepcid 20mg PO BID Heparin 5000 U SC Q8h [facility] <Florentino Felix - Last Filed: 10/14/16 17:57> Objective - Vital Signs/Intake and Output Vital Signs (last 24 hours): Temp Pulse Resp BP Pulse Ox 97.5 F L 79 20 122/82 100 10/14/16 15:33 10/14/16 15:33 10/14/16 15:33 10/14/16 15:33 10/14/16 15:33 - Medications Medications: Current Medications Aspirin (Aspirin Chewable) 81 mg PO DAILY [facility] Last Admin: 10/14/16 09:15 Dose: 81 mg Carvedilol (Coreg) 3.125 mg PO BID [facility] Last Admin: 10/14/16 09:15 Dose: 3.125 mg Collagenase (Santyl) 0 gm TOP DAILY [facility] Famotidine (Pepcid) 20 mg PO BID [facility] Last Admin: 10/14/16 09:15 Dose: 20 mg Heparin Sodium (Porcine) (Heparin) 5,000 units SC Q8 [facility] Last Admin: 10/14/16 14:01 Dose: 5,000 units Insulin Aspart (Novolog Mix 70/30 (70/30 Units/Ml)) 15 units SC BIDAC [facility] Insulin Human Regular (Novolin R) 0 unit SC ACHS [facility] PRN Reason: Protocol Last Admin: 10/14/16 12:56 Dose: 10 unit Rosuvastatin Calcium (Crestor) 5 mg PO HS [facility] Last Admin: 10/13/16 21:39 Dose: 5 mg - Labs Labs: 10/14/16 07:07 10/14/16 07:07 PT 11.1 SECONDS (9.7-12.2) 10/14/16 07:07 INR 1.0 10/14/16 07:07 APTT 31 SECONDS (21-34) 10/14/16 07:07 Attending/Attestation - Attestation I have personally seen and examined this patient.: Yes I have fully participated in the care of the patient.: Yes I have reviewed all pertinent clinical information, including history, physical exam and plan: Yes Notes (Text): 10/14/16 17:57 Patient was seen and examined at bedside Discussed the plan of care with the resident Plan is for cardiac catheterization Continue current medical management Titrate the insulin for optimal sugar control I agree with the above history and physical and assessment/plan by the resident.
[2016-10-14] MEDS: (Novolog Mix 70/30) Insulin Aspart/Insulin Aspar 100 units/ml SC SCH (18:02)
[2016-10-15 07:42] LABS: BASO # 0.1 K/uL (0.0-0.2); BASO % 0.9 % (0.0-2.0); EOS # 0.1 K/uL (0.0-0.7); HEMATOCRIT 44.2 % (35.0-51.0); LYMPH # 1.3 K/uL (1.0-4.3); LYMPH % 21.3 % (20.0-40.0); MEAN CELL VOLUME 90.8 fL (80.0-94.0); MEAN CORPUSCULAR HGB CONC 33.1 g/dL (33.0-37.0); MEAN PLATELET VOLUME 8.6 fL (7.2-11.7); MONO # 0.3 K/uL (0.0-0.8); MONO % 5.3 % (0.0-10.0); NRBC % 0.1 % (0.0-2.0); RED CELL DISTRIBUTION WIDTH 12.7 % (11.5-14.5); WHITE BLOOD COUNT 6.2 K/uL (4.8-10.8)
[2016-10-15 07:50] LABS: CHLORIDE 96 mmol/L (98-107); SODIUM 136 mmol/L (132-148)
[2016-10-15 07:51] LABS: POTASSIUM 4.8 mmol/L (3.6-5.2)
[2016-10-15 07:53] LABS: ALKALINE PHOSPHATASE 93 U/L (38-126); ALT/SGPT 16 U/L (21-72); AST/SGOT 15 U/L (17-59); BILIRUBIN,TOTAL 0.4 mg/dL (0.2-1.3); BLOOD UREA NITROGEN 19 mg/dL (9-20); CARBON DIOXIDE 31 mmol/L (22-30); GFR AFRICAN-AMERICAN > 60; GLUCOSE,RANDOM 397 mg/dL (75-110); TOTAL PROTEIN 7.6 g/dL (6.3-8.3)
[2016-10-15 07:54] LABS: CALCIUM 8.8 mg/dl (8.6-10.4); MAGNESIUM 2.1 mg/dL (1.6-2.3)
[2016-10-15] MEDS: (Novolin R) Insulin Human Regular 100 units/ml vial SC SCH ×4 (09:12→22:01)
[2016-10-15] MEDS: Collagenase 250 Units/gm Ointment(30 gm) TOP SCH (09:13)
[2016-10-15] MEDS: (Novolog Mix 70/30) Insulin Aspart/Insulin Aspar 100 units/ml SC SCH ×2 (09:23→17:17)
--- NOTE | 2016-10-15 09:35 | CP.PCM.PN ---
<Lee Souza - Last Filed: 10/15/16 14:12> Subjective - Date & Time of Evaluation Date of Evaluation: 10/15/16 Time of Evaluation: 09:33 - Subjective Subjective: Cardiology Progress Note Dr. Arrieta Patient seen adn examinaed at the bedside. No acute distress. No acute events overnight. Nursing staff reports no issues. Patient for cardiac cath today 2pm with Dr. Montague. The patient has no cardiopulmonary complaints at this time. The patient denies fever, chills, headache, chest pain, SOB, abdominal pain, N/V/D/C, changes in bowel/bladder, and extremity paresthesias. Objective - Vital Signs/Intake and Output Vital Signs (last 24 hours): Temp Pulse Resp BP Pulse Ox 98.1 F 72 20 145/99 H 99 10/15/16 08:00 10/15/16 08:06 10/15/16 08:00 10/15/16 08:00 10/15/16 08:00 - Medications Medications: Current Medications Aspirin (Aspirin Chewable) 81 mg PO DAILY [facility] Last Admin: 10/15/16 09:12 Dose: 81 mg Carvedilol (Coreg) 3.125 mg PO BID [facility] Last Admin: 10/15/16 09:12 Dose: 3.125 mg Collagenase (Santyl) 0 gm TOP DAILY [facility] Last Admin: 10/15/16 09:13 Dose: 1 applic Famotidine (Pepcid) 20 mg PO BID [facility] Last Admin: 10/15/16 09:12 Dose: 20 mg Heparin Sodium (Porcine) (Heparin) 5,000 units SC Q8 [facility] Last Admin: 10/15/16 05:34 Dose: Not Given Insulin Aspart (Novolog Mix 70/30 (70/30 Units/Ml)) 15 units SC BIDAC [facility] Last Admin: 10/15/16 09:23 Dose: 15 units Insulin Human Regular (Novolin R) 0 unit SC ACHS [facility] PRN Reason: Protocol Last Admin: 10/15/16 09:12 Dose: 10 unit Rosuvastatin Calcium (Crestor) 5 mg PO HS [facility] Last Admin: 10/14/16 21:40 Dose: 5 mg - Labs Labs: 10/15/16 07:22 10/15/16 07:22 PT 11.1 SECONDS (9.7-12.2) 10/14/16 07:07 INR 1.0 10/14/16 07:07 APTT 31 SECONDS (21-34) 10/14/16 07:07 - Additional Findings Additional findings: - Constitutional Appears: Well, No Acute Distress - Head Exam Head Exam: ATRAUMATIC, NORMAL INSPECTION, NORMOCEPHALIC - Eye Exam Eye Exam: EOMI, Normal appearance, PERRL - ENT Exam ENT Exam: Mucous Membranes Moist, Normal Exam - Neck Exam Neck exam: Positive for: Full Rom, Normal Inspection. Negative for: Lymphadenopathy - Respiratory Exam Respiratory Exam: Clear to Auscultation Bilateral, NORMAL BREATHING PATTERN. absent: Rhonchi, Wheezes - Cardiovascular Exam Cardiovascular Exam: REGULAR RHYTHM, RRR, +S1, +S2. absent: Diastolic murmur, Systolic Murmur - GI/Abdominal Exam GI & Abdominal Exam: Normal Bowel Sounds, Soft. absent: Diminished Bowel Sounds , Distended, Firm, Guarding, Tenderness - Extremities Exam Extremities exam: Positive for: normal inspection - Back Exam Back exam: NORMAL INSPECTION. 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 Berny Souza PGY1 <Peter Arrieta - Last Filed: 11/27/16 09:49> Objective - Vital Signs/Intake and Output Vital Signs (last 24 hours): Temp Pulse Resp BP Pulse Ox 97.2 F L 73 20 120/71 96 10/19/16 11:49 10/19/16 11:49 10/19/16 11:49 10/19/16 11:49 10/19/16 11:49 - Labs Labs: 10/17/16 06:28 10/17/16 06:28 PT 11.1 SECONDS (9.7-12.2) 10/14/16 07:07 INR 1.0 10/14/16 07:07 APTT 31 SECONDS (21-34) 10/14/16 07:07 Attending/Attestation - Attestation I have personally seen and examined this patient.: Yes I have fully participated in the care of the patient.: Yes I have reviewed all pertinent clinical information, including history, physical exam and plan: Yes Notes (Text): 11/27/16 09:48 for cardiac cath this afternoon
[2016-10-15] MEDS ORDERED: Midazolam 2 MG/2 ML VIAL ONE (13:24)
--- NOTE | 2016-10-15 13:30 | CP.PCM.PN ---
Addendum entered and electronically signed by Suzanne Sutherland DO 10/15/16 14: 23: Cardiac Cath- negative Patient will be NPO after midnight for BiV ICD placement tomorrow Original Note: <Suzanne Sutherland - Last Filed: 10/15/16 13:27> Subjective - Date & Time of Evaluation Date of Evaluation: 10/15/16 Time of Evaluation: 13:28 - Subjective Subjective: Patient seen and examined at bedside. Patient resting comfortably and scheduled for cardiac catheterization at 2:00 PM. Patient has no complaints and denies chest pain, palpitations, shortness of breath. He is tolerating diet well and having normal bowel movements. Objective - Vital Signs/Intake and Output Vital Signs (last 24 hours): Temp Pulse Resp BP Pulse Ox 98.1 F 72 20 145/99 H 99 10/15/16 08:00 10/15/16 08:06 10/15/16 08:00 10/15/16 08:00 10/15/16 08:00 - Medications Medications: Current Medications Aspirin (Aspirin Chewable) 81 mg PO DAILY [facility] Last Admin: 10/15/16 09:12 Dose: 81 mg Carvedilol (Coreg) 3.125 mg PO BID [facility] Last Admin: 10/15/16 09:12 Dose: 3.125 mg Collagenase (Santyl) 0 gm TOP DAILY [facility] Last Admin: 10/15/16 09:13 Dose: 1 applic Famotidine (Pepcid) 20 mg PO BID [facility] Last Admin: 10/15/16 09:12 Dose: 20 mg Heparin Sodium (Porcine) (Heparin) 5,000 units SC Q8 [facility] Last Admin: 10/15/16 05:34 Dose: Not Given Insulin Aspart (Novolog Mix 70/30 (70/30 Units/Ml)) 15 units SC BIDAC [facility] Last Admin: 10/15/16 09:23 Dose: 15 units Insulin Human Regular (Novolin R) 0 unit SC ACHS [facility] PRN Reason: Protocol Last Admin: 10/15/16 12:00 Dose: Not Given Rosuvastatin Calcium (Crestor) 5 mg PO HS [facility] Last Admin: 10/14/16 21:40 Dose: 5 mg - Labs Labs: 10/15/16 07:22 10/15/16 07:22 PT 11.1 SECONDS (9.7-12.2) 10/14/16 07:07 INR 1.0 10/14/16 07:07 APTT 31 SECONDS (21-34) 10/14/16 07:07 - Constitutional Appears: Non-toxic, No Acute Distress - Head Exam Head Exam: ATRAUMATIC, NORMAL INSPECTION, NORMOCEPHALIC - Eye Exam Eye Exam: EOMI, Normal appearance, PERRL - ENT Exam ENT Exam: Mucous Membranes Moist, Normal Exam - Respiratory Exam Respiratory Exam: Clear to Ausculation Bilateral, NORMAL BREATHING PATTERN. absent: Rales, Rhonchi, Wheezes - Cardiovascular Exam Cardiovascular Exam: +S1, +S2. absent: Tachycardia - GI/Abdominal Exam GI & Abdominal Exam: Soft, Normal Bowel Sounds. 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 Patient for cardiac cath with Dr. Dixon at 2 PM. EKG- LBBB. Cardiology consult, Dr. Arrieta and Dr. Montague. Continue Coreg 3.125mg PO BID, Aspirin 81mg PO Daily, Simvastatin 20mg PO HS ( equivalent). MADAY - negative Triglycerides 201 HDL 19 Patient possibly for cardiac cath. (2) Uncontrolled Diabetes mellitus Status: Chronic Blood glucose 365 Started on Novolog 70/30 15 U SC BID (08/16) Blood sugar continues to be elevated 381. Will increase Novolog 70/30 following cardiac cath. Patient to be educated on insulin use Hemoglobin a1c 14.6 Continue on Heart Healthy, mod CHO diet. accuchecks ACHS. RISS - high protocol (3) Diabetic ulcer of foot associated with diabetes mellitus due to underlying condition, limited to breakdown of skin Status: Acute Podiatry consulted, Dr. Soler Wound debrided at bedside (10/13). Continue santyl and dressing changes to affected area daily. (4) Prophylactic measure Status: Acute Pepcid 20mg PO BID Heparin 5000 U SC Q8h [facility] <Florentino Felix - Last Filed: 10/15/16 16:26> Objective - Vital Signs/Intake and Output Vital Signs (last 24 hours): Temp Pulse Resp BP Pulse Ox 97.9 F 95 H 20 149/97 H 100 10/15/16 16:08 10/15/16 16:08 10/15/16 16:08 10/15/16 16:08 10/15/16 16:08 - Medications Medications: Current Medications Aspirin (Aspirin Chewable) 81 mg PO DAILY [facility] Last Admin: 10/15/16 09:12 Dose: 81 mg Carvedilol (Coreg) 3.125 mg PO BID [facility] Last Admin: 10/15/16 09:12 Dose: 3.125 mg Collagenase (Santyl) 0 gm TOP DAILY [facility] Last Admin: 10/15/16 09:13 Dose: 1 applic Famotidine (Pepcid) 20 mg PO BID [facility] Last Admin: 10/15/16 09:12 Dose: 20 mg Heparin Sodium (Porcine) (Heparin) 5,000 units SC Q8 [facility] Last Admin: 10/15/16 14:00 Dose: Not Given Sodium Chloride (Sodium Chloride 0.9%) 500 mls @ 50 mls/hr IV .Q10H [facility] Stop: 10/15/16 18:31 Insulin Aspart (Novolog Mix 70/30 (70/30 Units/Ml)) 15 units SC BIDAC [facility] Last Admin: 10/15/16 09:23 Dose: 15 units Insulin Human Regular (Novolin R) 0 unit SC ACHS [facility] PRN Reason: Protocol Last Admin: 10/15/16 12:00 Dose: Not Given Rosuvastatin Calcium (Crestor) 5 mg PO HS [facility] Last Admin: 10/14/16 21:40 Dose: 5 mg - Labs Labs: 10/15/16 07:22 10/15/16 07:22 PT 11.1 SECONDS (9.7-12.2) 10/14/16 07:07 INR 1.0 10/14/16 07:07 APTT 31 SECONDS (21-34) 10/14/16 07:07 Attending/Attestation - Attestation I have personally seen and examined this patient.: Yes I have fully participated in the care of the patient.: Yes I have reviewed all pertinent clinical information, including history, physical exam and plan: Yes Notes (Text): 10/15/16 16:25 Patient was seen and examined at bedside this morning Patient is status post cardiac catheterization today. Plan is for AICD placement tomorrow Continue current medical management Titrate insulin for optimal sugar control I discussed the plan of care with the resident and agree with the above history and physical and assessment/plan by the resident.
[2016-10-15] MEDS ORDERED: Sodium Chloride 0.9% 500 ML IV SCH (14:30)
--- NOTE | 2016-10-15 14:34 | CP.PCM.PN ---
Subjective - Date & Time of Evaluation Date of Evaluation: 10/15/16 Time of Evaluation: 14:33 - Subjective Subjective: Patient to cath for procedure. Wound is stable at this time. Will continue to follow while admitted. Objective - Vital Signs/Intake and Output Vital Signs (last 24 hours): Temp Pulse Resp BP Pulse Ox 98.1 F 72 20 145/99 H 99 10/15/16 08:00 10/15/16 08:06 10/15/16 08:00 10/15/16 08:00 10/15/16 08:00 - Medications Medications: Current Medications Aspirin (Aspirin Chewable) 81 mg PO DAILY [facility] Last Admin: 10/15/16 09:12 Dose: 81 mg Carvedilol (Coreg) 3.125 mg PO BID [facility] Last Admin: 10/15/16 09:12 Dose: 3.125 mg Collagenase (Santyl) 0 gm TOP DAILY [facility] Last Admin: 10/15/16 09:13 Dose: 1 applic Famotidine (Pepcid) 20 mg PO BID [facility] Last Admin: 10/15/16 09:12 Dose: 20 mg Heparin Sodium (Porcine) (Heparin) 5,000 units SC Q8 [facility] Last Admin: 10/15/16 14:00 Dose: Not Given Sodium Chloride (Sodium Chloride 0.9%) 500 mls @ 50 mls/hr IV .Q10H [facility] Stop: 10/15/16 18:31 Insulin Aspart (Novolog Mix 70/30 (70/30 Units/Ml)) 15 units SC BIDAC [facility] Last Admin: 10/15/16 09:23 Dose: 15 units Insulin Human Regular (Novolin R) 0 unit SC ACHS [facility] PRN Reason: Protocol Last Admin: 10/15/16 12:00 Dose: Not Given Rosuvastatin Calcium (Crestor) 5 mg PO HS [facility] Last Admin: 10/14/16 21:40 Dose: 5 mg - Labs Labs: 10/15/16 07:22 10/15/16 07:22 PT 11.1 SECONDS (9.7-12.2) 10/14/16 07:07 INR 1.0 10/14/16 07:07 APTT 31 SECONDS (21-34) 10/14/16 07:07
--- NOTE | 2016-10-15 14:51 | CARDCATH ---
PROCEDURE DATE: 10/15/2016 BRIEF CLINICAL HISTORY: A patient who is a 46-year-old male with history of multiple medical issues who was seen in the office where he was advised for nuclear stress testing which came back positive a nd patient was transferred from the office to the hospital for cardiac catheterization. PROCEDURE TECHNIQUE: After consenting the patient, right groin was used for access and, after obtain ing the access, 6-[place] sheath was introduced into the right femoral artery and access was completed without complication. A 6-[place] JL4 catheter was used to visualize the left coronary artery system . A 6-[place] JR4 catheter was used to visualize the right coronary artery system. A 6-[place] pigtai l was used to assess the left ventricular end-diastolic pressure and LV gram. FINDINGS: A normal left main, normal left anterior descending artery, normal circumflex. RCA is nor mal. LV gram shows severe left ventricular systolic dysfunction. CONCLUSION: Normal coronary arteries. Severe left ventricular systolic dysfunction. PLAN: The patient will be given IV hydration. The patient was taken back to the floor. EP evaluati on for LifeVest and possible AICD in the future. Risk factor management. Crystal Montague MD cc: [phone] TT: 10/15/2016 14:50:56 ks
[2016-10-16 07:26] LABS: BASO # 0.1 K/uL (0.0-0.2); EOS # 0.1 K/uL (0.0-0.7); EOS % 1.1 % (0.0-4.0); HEMATOCRIT 42.5 % (35.0-51.0); LYMPH # 1.5 K/uL (1.0-4.3); LYMPH % 24.6 % (20.0-40.0); MEAN CELL VOLUME 90.4 fL (80.0-94.0); MEAN CORPUSCULAR HEMOGLOBIN 29.5 pg (27.0-31.0); MEAN CORPUSCULAR HGB CONC 32.6 g/dL (33.0-37.0); MEAN PLATELET VOLUME 8.5 fL (7.2-11.7); MONO # 0.4 K/uL (0.0-0.8); MONO % 6.4 % (0.0-10.0); RED CELL DISTRIBUTION WIDTH 12.7 % (11.5-14.5); WHITE BLOOD COUNT 6.2 K/uL (4.8-10.8)
[2016-10-16 07:55] LABS: CHLORIDE 98 mmol/L (98-107); POTASSIUM 4.9 mmol/L (3.6-5.2); SODIUM 136 mmol/L (132-148)
[2016-10-16 07:57] LABS: ALB/GLOB RATIO 0.9 (1.0-2.1); ALKALINE PHOSPHATASE 81 U/L (38-126); AST/SGOT 22 U/L (17-59); BILIRUBIN,TOTAL 0.3 mg/dL (0.2-1.3); CARBON DIOXIDE 29 mmol/L (22-30); GFR AFRICAN-AMERICAN > 60; TOTAL PROTEIN 6.9 g/dL (6.3-8.3)
[2016-10-16 07:58] LABS: ALT/SGPT 20 U/L (21-72); BLOOD UREA NITROGEN 23 mg/dL (9-20); CALCIUM 8.5 mg/dl (8.6-10.4); GLUCOSE,RANDOM 353 mg/dL (75-110); MAGNESIUM 1.9 mg/dL (1.6-2.3)
[2016-10-16] MEDS: (Novolin R) Insulin Human Regular 100 units/ml vial SC SCH ×5 (08:25→21:12)
[2016-10-16] MEDS: (Novolog Mix 70/30) Insulin Aspart/Insulin Aspar 100 units/ml SC SCH ×2 (08:25→17:04)
--- NOTE | 2016-10-16 08:54 | CP.PCM.PN ---
Subjective - Date & Time of Evaluation Date of Evaluation: 10/16/16 Time of Evaluation: 08:52 - Subjective Subjective: 46 y/o male seen and evaluated with stable right foot ulceration. patient is awake in bed and doing well today. Denies any complaints of pain in the foot. Denies any acute overnigght events. Denies any f/c/n//vosb. Objective - Vital Signs/Intake and Output Vital Signs (last 24 hours): Temp Pulse Resp BP Pulse Ox 98.2 F 76 20 128/83 99 10/16/16 07:00 10/16/16 07:00 10/16/16 07:00 10/16/16 07:00 10/16/16 07:00 Intake and Output: 10/16/16 10/16/16 06:59 18:59 Intake Total 120 Balance 120 - Medications Medications: Current Medications Aspirin (Aspirin Chewable) 81 mg PO DAILY [facility] Last Admin: 10/15/16 09:12 Dose: 81 mg Carvedilol (Coreg) 3.125 mg PO BID [facility] Last Admin: 10/16/16 05:28 Dose: 3.125 mg Collagenase (Santyl) 0 gm TOP DAILY [facility] Last Admin: 10/15/16 09:13 Dose: 1 applic Famotidine (Pepcid) 20 mg PO BID [facility] Last Admin: 10/15/16 17:13 Dose: 20 mg Insulin Aspart (Novolog Mix 70/30 (70/30 Units/Ml)) 20 units SC BIDAC [facility] Last Admin: 10/16/16 08:25 Dose: 20 units Insulin Human Regular (Novolin R) 0 unit SC ACHS [facility] PRN Reason: Protocol Last Admin: 10/16/16 08:25 Dose: 6 unit Rosuvastatin Calcium (Crestor) 5 mg PO HS [facility] Last Admin: 10/15/16 21:20 Dose: 5 mg - Labs Labs: 10/16/16 07:00 10/16/16 07:00 PT 11.1 SECONDS (9.7-12.2) 10/14/16 07:07 INR 1.0 10/14/16 07:07 APTT 31 SECONDS (21-34) 10/14/16 07:07 - Constitutional Appears: Well, Non-toxic, No Acute Distress - Neurological Exam Neurological Exam: Alert, Awake, Oriented x3 - Psychiatric Exam Psychiatric exam: Normal Affect, Normal Mood - Skin Skin Exam: Normal Color, Warm - Additional Findings Additional findings: Vasc: DP 2/4, PT 1/4, Temp gradient wnl, Cap fill time < 4 s x 7 digit Derm: NO edema, no erythema, roughly 1.4 cm x .4 cm open lesions that is not deep on the plantar distal aspect of the right foot at ulceration site, diffuse fibrotic covering, surrounding skin is hypertrophic from healing process, no erythema, no clinical signs of infection noted, area of injury to nail appears to be healed. 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 Plan: Patient evaluated and chart reviewed. Discussed with Dr. Soler. redressed with [place]; awaiting santyl rx. Wound is stable and will just need local wound care. Can f/u with Dr. Soler when d/c's. Will continue to follow for local wound care while admitte
--- NOTE | 2016-10-16 09:01 | CP.PCM.PN ---
<RitaJosé - Last Filed: 10/16/16 13:46> Subjective - Date & Time of Evaluation Date of Evaluation: 10/16/16 Time of Evaluation: 07:45 - Subjective Subjective: PGY-1 Medicine Progress Note for Dr. Felix Patient seen and examined at bedside. Patient was NPO overnight in anticipation for transfer for BiValve ICD placement. Even if Patient is transferred today, procedure will not be done. Patient has no complaints. He is tolerating diet well and having normal bowel movements. Denies chest pain, palpitations, shortness of breath. Objective - Vital Signs/Intake and Output Vital Signs (last 24 hours): Temp Pulse Resp BP Pulse Ox 98.2 F 76 20 128/83 99 10/16/16 07:00 10/16/16 07:00 10/16/16 07:00 10/16/16 07:00 10/16/16 07:00 Intake and Output: 10/16/16 10/16/16 06:59 18:59 Intake Total 120 Balance 120 - Medications Medications: Current Medications Aspirin (Aspirin Chewable) 81 mg PO DAILY [facility] Last Admin: 10/15/16 09:12 Dose: 81 mg Carvedilol (Coreg) 3.125 mg PO BID [facility] Last Admin: 10/16/16 05:28 Dose: 3.125 mg Collagenase (Santyl) 0 gm TOP DAILY [facility] Last Admin: 10/15/16 09:13 Dose: 1 applic Famotidine (Pepcid) 20 mg PO BID [facility] Last Admin: 10/15/16 17:13 Dose: 20 mg Insulin Aspart (Novolog Mix 70/30 (70/30 Units/Ml)) 20 units SC BIDAC [facility] Last Admin: 10/16/16 08:25 Dose: 20 units Insulin Human Regular (Novolin R) 0 unit SC ACHS [facility] PRN Reason: Protocol Last Admin: 10/16/16 08:25 Dose: 6 unit Rosuvastatin Calcium (Crestor) 5 mg PO HS [facility] Last Admin: 10/15/16 21:20 Dose: 5 mg - Labs Labs: 10/16/16 07:00 10/16/16 07:00 PT 11.1 SECONDS (9.7-12.2) 10/14/16 07:07 INR 1.0 10/14/16 07:07 APTT 31 SECONDS (21-34) 10/14/16 07:07 - Constitutional Appears: No Acute Distress - Head Exam Head Exam: ATRAUMATIC, NORMOCEPHALIC - Eye Exam Eye Exam: EOMI, Normal appearance Pupil Exam: PERRL - ENT Exam ENT Exam: Mucous Membranes Moist - Neck Exam Neck Exam: Normal Inspection - Respiratory Exam Respiratory Exam: Clear to Ausculation Bilateral, NORMAL BREATHING PATTERN - Cardiovascular Exam Cardiovascular Exam: REGULAR RHYTHM, +S1, +S2 - GI/Abdominal Exam GI & Abdominal Exam: Soft, Normal Bowel Sounds. absent: Tenderness - Extremities Exam Extremities Exam: Normal Capillary Refill - Back Exam Back Exam: absent: CVA tenderness (L), CVA tenderness (R) - Neurological Exam Neurological Exam: Alert, Awake, CN II-XII Intact, Oriented x3 - Psychiatric Exam Psychiatric exam: Normal Affect, Normal Mood - Skin Skin Exam: Dry, Intact, Normal Color, Warm Additional comments: 1.4 cm x 0.4 cm lesions on the plantar distal aspect of right foot ulceration with diffuse fibrotic covering, and surrounding skin hypertrophic from healing process no erythema Assessment and Plan - Assessment and Plan (Free Text) Plan: (1) 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 Patient for cardiac cath with Dr. Dixon at 2 PM. EKG- LBBB. Cardiology consult, Dr. Arrieta and Dr. Montague. Continue Coreg 3.125mg PO BID, Aspirin 81mg PO Daily, Simvastatin 20mg PO HS ( equivalent). MADAY - negative Triglycerides 201 HDL 19 Patient possibly for cardiac cath. (2) Uncontrolled Diabetes mellitus Started on Novolog 70/30 15 U SC BID (08/16) Blood sugar continues to be elevated 381. Will increase Novolog 70/30 following cardiac cath. Patient to be educated on insulin use Hemoglobin a1c 14.6 Continue on Heart Healthy, mod CHO diet. accuchecks ACHS. RISS - high protocol (3) Diabetic ulcer of foot associated with diabetes mellitus due to underlying condition, limited to breakdown of skin Podiatry consulted, Dr. Soler Wound debrided at bedside (10/13). Continue santyl and dressing changes to affected area daily. (4) Prophylactic measure Pepcid 20mg PO BID Heparin 5000 U SC Q8h SCD[facility] <Florentino Felix M - Last Filed: 10/16/16 14:28> Objective - Vital Signs/Intake and Output Vital Signs (last 24 hours): Temp Pulse Resp BP Pulse Ox 98.2 F 76 20 128/83 99 10/16/16 07:00 10/16/16 07:00 10/16/16 07:00 10/16/16 07:00 10/16/16 07:00 Intake and Output: 10/16/16 10/16/16 06:59 18:59 Intake Total 120 Balance 120 - Medications Medications: Current Medications Aspirin (Aspirin Chewable) 81 mg PO DAILY [facility] Last Admin: 10/16/16 10:15 Dose: Not Given Carvedilol (Coreg) 3.125 mg PO BID [facility] Last Admin: 10/16/16 10:15 Dose: Not Given Collagenase (Santyl) 0 gm TOP DAILY [facility] Last Admin: 10/16/16 11:17 Dose: Not Given Famotidine (Pepcid) 20 mg PO BID [facility] Last Admin: 10/16/16 10:16 Dose: Not Given Insulin Aspart (Novolog Mix 70/30 (70/30 Units/Ml)) 20 units SC BIDAC [facility] Last Admin: 10/16/16 08:25 Dose: 20 units Insulin Human Regular (Novolin R) 0 unit SC ACHS [facility] PRN Reason: Protocol Last Admin: 10/16/16 12:14 Dose: 4 unit Rosuvastatin Calcium (Crestor) 5 mg PO HS [facility] Last Admin: 10/15/16 21:20 Dose: 5 mg - Labs Labs: 10/16/16 07:00 10/16/16 07:00 PT 11.1 SECONDS (9.7-12.2) 10/14/16 07:07 INR 1.0 10/14/16 07:07 APTT 31 SECONDS (21-34) 10/14/16 07:07 Attending/Attestation - Attestation I have personally seen and examined this patient.: Yes I have fully participated in the care of the patient.: Yes I have reviewed all pertinent clinical information, including history, physical exam and plan: Yes Notes (Text): 10/16/16 14:27 Patient seen and examined at bedside with the resident Patient is status post the cardiac catheterization Plan is for AICD placement likely tomorrow Continue current medical management I discussed the plan of care with the resident and I agree with the above history and physical and assessment/plan by the resident.
[2016-10-16] MEDS: Collagenase 250 Units/gm Ointment(30 gm) TOP SCH (11:17)
--- NOTE | 2016-10-16 11:47 | CP.PCM.PN ---
<Lee Souza - Last Filed: 10/16/16 11:44> Subjective - Date & Time of Evaluation Date of Evaluation: 10/16/16 Time of Evaluation: 11:44 - Subjective Subjective: Cardiology Progress Note Dr. Arrieta Patient seen and examined at the bedside. No acute distress. No acute events overnight. Nursing staff reports no issues. FOllowing the negative cath, the patient will be transferred for ICD placement. The patient has no cardiopulmonary complaints at this time. The patient denies fever, chills, headache, chest pain, palpitations, SOB, abdominal pain, N/V/D/C, changes in bowel/bladder, and extremity paresthesias. Objective - Vital Signs/Intake and Output Vital Signs (last 24 hours): Temp Pulse Resp BP Pulse Ox 98.2 F 76 20 128/83 99 10/16/16 07:00 10/16/16 07:00 10/16/16 07:00 10/16/16 07:00 10/16/16 07:00 Intake and Output: 10/16/16 10/16/16 06:59 18:59 Intake Total 120 Balance 120 - Medications Medications: Current Medications Aspirin (Aspirin Chewable) 81 mg PO DAILY [facility] Last Admin: 10/16/16 10:15 Dose: Not Given Carvedilol (Coreg) 3.125 mg PO BID [facility] Last Admin: 10/16/16 10:15 Dose: Not Given Collagenase (Santyl) 0 gm TOP DAILY [facility] Last Admin: 10/16/16 11:17 Dose: Not Given Famotidine (Pepcid) 20 mg PO BID [facility] Last Admin: 10/16/16 10:16 Dose: Not Given Insulin Aspart (Novolog Mix 70/30 (70/30 Units/Ml)) 20 units SC BIDAC [facility] Last Admin: 10/16/16 08:25 Dose: 20 units Insulin Human Regular (Novolin R) 0 unit SC ACHS [facility] PRN Reason: Protocol Last Admin: 10/16/16 08:25 Dose: 6 unit Rosuvastatin Calcium (Crestor) 5 mg PO HS [facility] Last Admin: 10/15/16 21:20 Dose: 5 mg - Labs Labs: 10/16/16 07:00 10/16/16 07:00 PT 11.1 SECONDS (9.7-12.2) 10/14/16 07:07 INR 1.0 10/14/16 07:07 APTT 31 SECONDS (21-34) 10/14/16 07:07 - Additional Findings Additional findings: - Constitutional Appears: Well, No Acute Distress - Head Exam Head Exam: ATRAUMATIC, NORMAL INSPECTION, NORMOCEPHALIC - Eye Exam Eye Exam: EOMI, Normal appearance, PERRL - ENT Exam ENT Exam: Mucous Membranes Moist, Normal Exam - Neck Exam Neck exam: Positive for: Full Rom, Normal Inspection. Negative for: Lymphadenopathy - Respiratory Exam Respiratory Exam: Clear to Auscultation Bilateral, NORMAL BREATHING PATTERN. absent: Rhonchi, Wheezes - Cardiovascular Exam Cardiovascular Exam: REGULAR RHYTHM, RRR, +S1, +S2. absent: Diastolic murmur, Systolic Murmur - GI/Abdominal Exam GI & Abdominal Exam: Normal Bowel Sounds, Soft. absent: Diminished Bowel Sounds , Distended, Firm, Guarding, Tenderness - Extremities Exam Extremities exam: Positive for: normal inspection (wounds cared for by podiatry service) - Back Exam Back exam: NORMAL INSPECTION. absent: CVA tenderness (L), CVA tenderness (R) - Neurological Exam Neurological exam: Alert, CN II-XII Intact, Normal Gait, Oriented x3 Assessment and Plan (1) Hypertension Status: h (2) Left bundle branch block Status: h (3) Positive cardiac stress test Status: h (4) Uncontrolled diabetes mellitus Status: h (5) Systolic heart failure, chronic Assessment & Plan: - Inferior and Anterior-apical Myocardial Wall Defects on Nuclear Stress Test - Cardiac Cath- negative - Patient pending transfer for BiV ICD placement - NPO past midnight - Heart Healthy diet - continue Coreg 3.125mg PO BID - continue Aspirin 81mg PO daily - monitor BP- normotensive currently - hemodynamically stable at this time - maintain euglycemia (A1c = 14.6) Status: h - Assessment and Plan (Free Text) Plan: Case Discussed with Dr. Berny Souza PGY1 <Peter Arrieta - Last Filed: 11/27/16 09:50> Objective - Vital Signs/Intake and Output Vital Signs (last 24 hours): Temp Pulse Resp BP Pulse Ox 97.2 F L 73 20 120/71 96 10/19/16 11:49 10/19/16 11:49 10/19/16 11:49 10/19/16 11:49 10/19/16 11:49 - Labs Labs: 10/17/16 06:28 10/17/16 06:28 PT 11.1 SECONDS (9.7-12.2) 10/14/16 07:07 INR 1.0 10/14/16 07:07 APTT 31 SECONDS (21-34) 10/14/16 07:07 Attending/Attestation - Attestation I have personally seen and examined this patient.: Yes I have fully participated in the care of the patient.: Yes I have reviewed all pertinent clinical information, including history, physical exam and plan: Yes Notes (Text): 11/27/16 09:49 negatie cardiac catheterization for ICD
--- NOTE | 2016-10-16 23:20 | CP.PCM.PN ---
<FabrizioSuzanne edmondson - Last Filed: 10/17/16 00:36> Subjective - Date & Time of Evaluation Date of Evaluation: 10/17/16 Time of Evaluation: 00:30 - Subjective Subjective: Pt seen and examined at bedside. Patient is sitting comfortably and has no complaints. He is awaiting transfer for ICD placement s/p negative cardiac catheterization. He denies chest discomfort, palpitations, shortness of breath, abdominal pain, nausea, vomiting and lower extremity tenderness. He is tolerating diet well and having normal bowel movements. Objective - Vital Signs/Intake and Output Vital Signs (last 24 hours): Temp Pulse Resp BP Pulse Ox 97.7 F 81 18 136/87 96 10/16/16 15:59 10/16/16 16:21 10/16/16 15:59 10/16/16 15:59 10/16/16 15:59 Intake and Output: 10/16/16 10/17/16 18:59 06:59 Intake Total 640 Balance 640 - Medications Medications: Current Medications Aspirin (Aspirin Chewable) 81 mg PO DAILY [facility] Last Admin: 10/16/16 10:15 Dose: Not Given Carvedilol (Coreg) 3.125 mg PO BID [facility] Last Admin: 10/16/16 17:46 Dose: 3.125 mg Collagenase (Santyl) 0 gm TOP DAILY [facility] Last Admin: 10/16/16 11:17 Dose: Not Given Famotidine (Pepcid) 20 mg PO BID [facility] Last Admin: 10/16/16 17:46 Dose: 20 mg Insulin Aspart (Novolog Mix 70/30 (70/30 Units/Ml)) 20 units SC BIDAC [facility] Last Admin: 10/16/16 17:04 Dose: 20 units Insulin Human Regular (Novolin R) 0 unit SC ACHS [facility] PRN Reason: Protocol Last Admin: 10/16/16 21:12 Dose: Not Given Rosuvastatin Calcium (Crestor) 5 mg PO HS [facility] Last Admin: 10/16/16 21:30 Dose: 5 mg - Labs Labs: 10/16/16 07:00 10/16/16 07:00 PT 11.1 SECONDS (9.7-12.2) 10/14/16 07:07 INR 1.0 10/14/16 07:07 APTT 31 SECONDS (21-34) 10/14/16 07:07 - Constitutional Appears: Non-toxic, No Acute Distress - Head Exam Head Exam: ATRAUMATIC, NORMAL INSPECTION, NORMOCEPHALIC - Eye Exam Eye Exam: EOMI, Normal appearance, PERRL - ENT Exam ENT Exam: Mucous Membranes Moist - Neck Exam Neck Exam: Normal Inspection - Respiratory Exam Respiratory Exam: Clear to Ausculation Bilateral, NORMAL BREATHING PATTERN. absent: Rales, Rhonchi, Wheezes - Cardiovascular Exam Cardiovascular Exam: +S1, +S2. absent: Tachycardia, Murmur - GI/Abdominal Exam GI & Abdominal Exam: Soft, Normal Bowel Sounds. absent: Distended, Guarding, Rigid, Tenderness - Extremities Exam Extremities Exam: absent: Tenderness Additional comments: 1.4 cm x .4 cm open lesions to the plantar distal aspect of the right foot at ulceration site, fibrosis noted, negative for erythema, no signs of infection - Neurological Exam Neurological Exam: Alert, Awake, Oriented x3 - Psychiatric Exam Psychiatric exam: Normal Affect, Normal Mood - Skin Skin Exam: Dry Additional comments: xerotic and hyperpigmentation to bilateral tibial region of lower extremities. 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 NPO Nuclear Stress Test- 09/11/16- defect in mid-inferior wall, defect in apical anterior wall. Patient for cardiac cath with Dr. Dixon at 2 PM. EKG- LBBB. Cardiology consult, Dr. Arrieta and Dr. Montague. Continue Coreg 3.125mg PO BID, Aspirin 81mg PO Daily, Simvastatin 20mg PO HS ( equivalent). MDAAY - negative Triglycerides 201 HDL 19 Patient possibly for cardiac cath. (2) Uncontrolled Diabetes mellitus Sugars more controlled , 172 Continue Novolog 70/30 20 U SC BID Blood sugar continues to be elevated 381. Will increase Novolog 70/30 following cardiac cath. Patient educated on insulin use Hemoglobin a1c 14.6 Continue on Heart Healthy, mod CHO diet. accuchecks ACHS. RISS - high protocol (3) Diabetic ulcer of foot associated with diabetes mellitus due to underlying condition, limited to breakdown of skin Podiatry consulted, Dr. Soler Wound debrided at bedside (10/13). Continue santyl and dressing changes to affected area daily. (4) Prophylactic measure Pepcid 20mg PO BID Heparin 5000 U SC Q8h [facility] <Florentino Felix M - Last Filed: 10/17/16 14:48> Objective - Vital Signs/Intake and Output Vital Signs (last 24 hours): Temp Pulse Resp BP Pulse Ox 97.8 F 71 20 122/77 97 10/17/16 07:00 10/17/16 08:00 10/17/16 07:00 10/17/16 07:00 10/17/16 07:00 Intake and Output: 10/17/16 10/17/16 06:59 18:59 Intake Total 600 Balance 600 - Medications Medications: Current Medications Aspirin (Aspirin Chewable) 81 mg PO DAILY [facility] Last Admin: 10/17/16 10:05 Dose: 81 mg Carvedilol (Coreg) 3.125 mg PO BID [facility] Last Admin: 10/17/16 10:00 Dose: 3.125 mg Collagenase (Santyl) 0 gm TOP DAILY [facility] Last Admin: 10/17/16 09:40 Dose: 1 applic Famotidine (Pepcid) 20 mg PO BID [facility] Last Admin: 10/17/16 10:00 Dose: 20 mg Insulin Aspart (Novolog Mix 70/30 (70/30 Units/Ml)) 22 units SC BIDAC [facility] Insulin Human Regular (Novolin R) 0 unit SC ACHS [facility] PRN Reason: Protocol Last Admin: 10/17/16 12:04 Dose: 10 unit Rosuvastatin Calcium (Crestor) 5 mg PO HS [facility] Last Admin: 10/16/16 21:30 Dose: 5 mg - Labs Labs: 10/17/16 06:28 10/17/16 06:28 PT 11.1 SECONDS (9.7-12.2) 10/14/16 07:07 INR 1.0 10/14/16 07:07 APTT 31 SECONDS (21-34) 10/14/16 07:07 Attending/Attestation - Attestation I have personally seen and examined this patient.: Yes I have fully participated in the care of the patient.: Yes I have reviewed all pertinent clinical information, including history, physical exam and plan: Yes Notes (Text): 10/17/16 14:47 Patient seen and examined at bedside today. He appears comfortable with no shortness of breath. No chest pain or discomfort reported. No palpitations. Plan is for transfer the patient for ICD placement. We will follow cardiology recommendations.
[2016-10-17 06:56] LABS: CHLORIDE 96 mmol/L (98-107); SODIUM 136 mmol/L (132-148)
[2016-10-17 06:58] LABS: BILIRUBIN,TOTAL 0.5 mg/dL (0.2-1.3); GFR AFRICAN-AMERICAN > 60
[2016-10-17 06:59] LABS: ALB/GLOB RATIO 0.9 (1.0-2.1); ALKALINE PHOSPHATASE 88 U/L (38-126); ALT/SGPT 30 U/L (21-72); AST/SGOT 32 U/L (17-59); BLOOD UREA NITROGEN 24 mg/dL (9-20); CALCIUM 8.3 mg/dl (8.6-10.4); CARBON DIOXIDE 32 mmol/L (22-30); GLUCOSE,RANDOM 279 mg/dL (75-110); MAGNESIUM 2.1 mg/dL (1.6-2.3); TOTAL PROTEIN 7.1 g/dL (6.3-8.3)
[2016-10-17 07:07] LABS: BASO # 0.1 K/uL (0.0-0.2); BASO % 0.7 % (0.0-2.0); EOS # 0.1 K/uL (0.0-0.7); EOS % 1.4 % (0.0-4.0); HEMATOCRIT 43.2 % (35.0-51.0); LYMPH # 1.7 K/uL (1.0-4.3); LYMPH % 22.9 % (20.0-40.0); MEAN CELL VOLUME 90.9 fL (80.0-94.0); MEAN CORPUSCULAR HEMOGLOBIN 29.9 pg (27.0-31.0); MEAN CORPUSCULAR HGB CONC 32.9 g/dL (33.0-37.0); MEAN PLATELET VOLUME 9.2 fL (7.2-11.7); MONO # 0.5 K/uL (0.0-0.8); MONO % 7.4 % (0.0-10.0); RED CELL DISTRIBUTION WIDTH 12.6 % (11.5-14.5); WHITE BLOOD COUNT 7.3 K/uL (4.8-10.8)
[2016-10-17] MEDS: (Novolog Mix 70/30) Insulin Aspart/Insulin Aspar 100 units/ml SC SCH ×3 (07:57→17:18)
[2016-10-17] MEDS: (Novolin R) Insulin Human Regular 100 units/ml vial SC SCH ×5 (07:57→22:00)
[2016-10-17] MEDS: Collagenase 250 Units/gm Ointment(30 gm) TOP SCH (09:40)
--- NOTE | 2016-10-17 12:05 | CP.PCM.PN ---
Subjective - Date & Time of Evaluation Date of Evaluation: 10/17/16 Time of Evaluation: 12:04 - Subjective Subjective: 46 y/o male seen and evaluated with stable right foot ulceration. patient is awake in bed and doing well today. Denies any complaints of pain in the foot. Denies any acute overnigght events. Denies any f/c/n//vosb. Objective - Vital Signs/Intake and Output Vital Signs (last 24 hours): Temp Pulse Resp BP Pulse Ox 97.8 F 71 20 122/77 97 10/17/16 07:00 10/17/16 08:00 10/17/16 07:00 10/17/16 07:00 10/17/16 07:00 - Medications Medications: Current Medications Aspirin (Aspirin Chewable) 81 mg PO DAILY [facility] Last Admin: 10/17/16 10:05 Dose: 81 mg Carvedilol (Coreg) 3.125 mg PO BID [facility] Last Admin: 10/17/16 10:00 Dose: 3.125 mg Collagenase (Santyl) 0 gm TOP DAILY [facility] Last Admin: 10/16/16 11:17 Dose: Not Given Famotidine (Pepcid) 20 mg PO BID [facility] Last Admin: 10/17/16 10:00 Dose: 20 mg Insulin Aspart (Novolog Mix 70/30 (70/30 Units/Ml)) 22 units SC BIDAC [facility] Insulin Human Regular (Novolin R) 0 unit SC ACHS [facility] PRN Reason: Protocol Last Admin: 10/17/16 10:05 Dose: 6 unit Rosuvastatin Calcium (Crestor) 5 mg PO HS [facility] Last Admin: 10/16/16 21:30 Dose: 5 mg - Labs Labs: 10/17/16 06:28 10/17/16 06:28 PT 11.1 SECONDS (9.7-12.2) 10/14/16 07:07 INR 1.0 10/14/16 07:07 APTT 31 SECONDS (21-34) 10/14/16 07:07 - Constitutional Appears: Well, Non-toxic, No Acute Distress - Extremities Exam Additional comments: Vasc: DP 2/4, PT 1/4, Temp gradient wnl, Cap fill time < 4 s x 7 digit Derm: NO edema, no erythema, roughly 1.4 cm x .4 cm open lesions that is not deep on the plantar distal aspect of the right foot at ulceration site, diffuse fibrotic covering, surrounding skin is hypertrophic from healing process, no erythema, no clinical signs of infection noted, area of injury to nail appears to be healed. 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 - Neurological Exam Neurological Exam: Alert, Awake, Oriented x3 - Psychiatric Exam Psychiatric exam: Normal Affect, Normal Mood Assessment and Plan - Assessment and Plan (Free Text) Assessment: 46 y/o male with ulceration to right foot amputation site s/p right digit amputation roughly 4 years ago. Plan: Patient evaluated and chart reviewed. Discussed with Dr. Soler. applied AAMIR carcamo to right foot Wound is stable and will just need local wound care. Can f/u with Dr. Soler when d/c's. Will continue to follow for local wound care while admitted
[2016-10-17] MEDS ORDERED: POLYETHYLENE GLYCOL 3350 17 GM/Dose PACKET PO ONE (17:43)
--- NOTE | 2016-10-17 20:49 | CP.PCM.PN ---
<Suzanne Sutherland - Last Filed: 10/18/16 00:08> Subjective - Date & Time of Evaluation Date of Evaluation: 10/18/16 Time of Evaluation: 00:00 - Subjective Subjective: Pt seen and examined at bedside. Patient resting comfortably and has no complaints. He is awaiting transfer for ICD placement. He denies chest pain, palpitations, shortness of breath, abdominal pain, nausea, vomiting and lower extremity tenderness. He is tolerating diet well and having normal bowel movements. Objective - Vital Signs/Intake and Output Vital Signs (last 24 hours): Temp Pulse Resp BP Pulse Ox 97.7 F 78 20 102/68 97 10/17/16 16:00 10/17/16 16:00 10/17/16 16:00 10/17/16 16:00 10/17/16 16:00 Intake and Output: 10/17/16 10/18/16 18:59 06:59 Intake Total 600 Balance 600 - Medications Medications: Current Medications Aspirin (Aspirin Chewable) 81 mg PO DAILY [facility] Last Admin: 10/17/16 10:05 Dose: 81 mg Carvedilol (Coreg) 3.125 mg PO BID [facility] Last Admin: 10/17/16 17:19 Dose: 3.125 mg Collagenase (Santyl) 0 gm TOP DAILY [facility] Last Admin: 10/17/16 09:40 Dose: 1 applic Famotidine (Pepcid) 20 mg PO BID [facility] Last Admin: 10/17/16 17:19 Dose: 20 mg Insulin Aspart (Novolog Mix 70/30 (70/30 Units/Ml)) 22 units SC BIDAC [facility] Last Admin: 10/17/16 17:18 Dose: 22 units Insulin Human Regular (Novolin R) 0 unit SC ACHS [facility] PRN Reason: Protocol Last Admin: 10/17/16 17:18 Dose: 2 unit Rosuvastatin Calcium (Crestor) 5 mg PO HS [facility] Last Admin: 10/16/16 21:30 Dose: 5 mg - Labs Labs: 10/17/16 06:28 10/17/16 06:28 PT 11.1 SECONDS (9.7-12.2) 10/14/16 07:07 INR 1.0 10/14/16 07:07 APTT 31 SECONDS (21-34) 10/14/16 07:07 - Constitutional Appears: Non-toxic, No Acute Distress - Head Exam Head Exam: ATRAUMATIC, NORMAL INSPECTION, NORMOCEPHALIC - Eye Exam Eye Exam: EOMI, Normal appearance, PERRL - ENT Exam ENT Exam: Mucous Membranes Moist - Neck Exam Neck Exam: Normal Inspection - Respiratory Exam Respiratory Exam: Clear to Ausculation Bilateral, NORMAL BREATHING PATTERN. absent: Rales, Rhonchi, Wheezes - Cardiovascular Exam Cardiovascular Exam: +S1, +S2. absent: Tachycardia - GI/Abdominal Exam GI & Abdominal Exam: Soft, Normal Bowel Sounds. absent: Distended, Firm, Tenderness - Extremities Exam Extremities Exam: Full ROM Additional comments: clean, dry dressing intact to right foot. Xerosis and hyperpigmentation of bilateral lower extremities. 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 Severe left ventricular dysfunction. Plan for transfer on Wednesday for Biventricular ICD placement Nuclear Stress Test- 09/11/16- defect in mid-inferior wall, defect in apical anterior wall. s/p cardiac cath with Dr. Dixon EKG- LBBB. Cardiology consult, Dr. Arrieta and Dr. Montague. Continue Coreg 3.125mg PO BID, Aspirin 81mg PO Daily, Simvastatin 20mg PO HS ( equivalent). MADAY - negative Triglycerides 201 HDL 19 (2) Uncontrolled Diabetes mellitus Sugars more controlled , 187; however still have blood sugars greater than 350 Increase Novolog 70/30 to 22 U SC BID Blood sugar continues to be elevated 381. Will increase Novolog 70/30 following cardiac cath. Patient educated on insulin use Hemoglobin a1c 14.6 Continue on Heart Healthy, mod CHO diet. accuchecks ACHS. RISS - high protocol (3) Diabetic ulcer of foot associated with diabetes mellitus due to underlying condition, limited to breakdown of skin Podiatry consulted, Dr. Soler Healing Wound debrided at bedside (10/13). Continue santyl and dressing changes to affected area daily. (4) Prophylactic measure Pepcid 20mg PO BID Lovenox 40 mg SC daily [facility] <Florentino Felix M - Last Filed: 10/18/16 12:01> Objective - Vital Signs/Intake and Output Vital Signs (last 24 hours): Temp Pulse Resp BP Pulse Ox 98.1 F 76 20 116/75 95 10/18/16 08:30 10/18/16 09:15 10/18/16 08:30 10/18/16 08:30 10/18/16 08:30 Intake and Output: 10/18/16 10/18/16 06:59 18:59 Intake Total 740 Balance 740 - Medications Medications: Current Medications Aspirin (Aspirin Chewable) 81 mg PO DAILY [facility] Last Admin: 10/18/16 11:04 Dose: 81 mg Carvedilol (Coreg) 3.125 mg PO BID [facility] Last Admin: 10/18/16 11:04 Dose: 3.125 mg Collagenase (Santyl) 0 gm TOP DAILY [facility] Last Admin: 10/18/16 11:06 Dose: 1 applic Enoxaparin Sodium (Lovenox) 40 mg SC DAILY [facility] Last Admin: 10/18/16 11:04 Dose: 40 mg Famotidine (Pepcid) 20 mg PO BID [facility] Last Admin: 10/18/16 11:03 Dose: 20 mg Insulin Aspart (Novolog Mix 70/30 (70/30 Units/Ml)) 24 units SC BIDAC [facility] Insulin Human Regular (Novolin R) 0 unit SC ACHS [facility] PRN Reason: Protocol Last Admin: 10/18/16 08:05 Dose: 8 unit Rosuvastatin Calcium (Crestor) 5 mg PO HS [facility] Last Admin: 10/17/16 22:13 Dose: 5 mg - Labs Labs: 10/17/16 06:28 10/17/16 06:28 PT 11.1 SECONDS (9.7-12.2) 10/14/16 07:07 INR 1.0 10/14/16 07:07 APTT 31 SECONDS (21-34) 10/14/16 07:07 Attending/Attestation - Attestation I have personally seen and examined this patient.: Yes I have fully participated in the care of the patient.: Yes I have reviewed all pertinent clinical information, including history, physical exam and plan: Yes Notes (Text): 10/18/16 11:58 Patient was seen and examined at bedside Patient is awake alert without any acute distress Patient does not complain of any shortness of breath, chest pain or palpitation Plan is for transfer the patient to another facility for AICD placement Patient continues to have hyperglycemia. We will titrate the insulin for optimal control Increased the dose of for insulin 70/30 to 24 units twice a day before meals. Continue local wound care of the amputated foot as per the recommendations of podiatry Cardiology is on board and follow-up seen in appreciated. I agree with the above history and physical and assessment/plan by the resident.
--- NOTE | 2016-10-18 03:34 | CP.PCM.PN ---
Subjective - Date & Time of Evaluation Date of Evaluation: 10/18/16 Time of Evaluation: 03:05 - Subjective Subjective: Pt doing we tolerating PO Objective - Vital Signs/Intake and Output Vital Signs (last 24 hours): Temp Pulse Resp BP Pulse Ox 97.6 F 72 20 99/63 L 95 10/17/16 23:43 10/18/16 00:05 10/17/16 23:43 10/17/16 23:43 10/17/16 23:43 Intake and Output: 10/17/16 10/18/16 18:59 06:59 Intake Total 600 500 Balance 600 500 - Medications Medications: Current Medications Aspirin (Aspirin Chewable) 81 mg PO DAILY [facility] Last Admin: 10/17/16 10:05 Dose: 81 mg Carvedilol (Coreg) 3.125 mg PO BID [facility] Last Admin: 10/17/16 17:19 Dose: 3.125 mg Collagenase (Santyl) 0 gm TOP DAILY [facility] Last Admin: 10/17/16 09:40 Dose: 1 applic Enoxaparin Sodium (Lovenox) 40 mg SC DAILY [facility] Famotidine (Pepcid) 20 mg PO BID [facility] Last Admin: 10/17/16 17:19 Dose: 20 mg Insulin Aspart (Novolog Mix 70/30 (70/30 Units/Ml)) 22 units SC BIDAC [facility] Last Admin: 10/17/16 17:18 Dose: 22 units Insulin Human Regular (Novolin R) 0 unit SC ACHS [facility] PRN Reason: Protocol Last Admin: 10/17/16 22:00 Dose: Not Given Rosuvastatin Calcium (Crestor) 5 mg PO HS [facility] Last Admin: 10/17/16 22:13 Dose: 5 mg - Labs Labs: 10/17/16 06:28 10/17/16 06:28 PT 11.1 SECONDS (9.7-12.2) 10/14/16 07:07 INR 1.0 10/14/16 07:07 APTT 31 SECONDS (21-34) 10/14/16 07:07 - Constitutional Appears: Well - Head Exam Head Exam: ATRAUMATIC - Eye Exam Eye Exam: Normal appearance - ENT Exam ENT Exam: Mucous Membranes Moist - Respiratory Exam Respiratory Exam: Clear to Ausculation Bilateral - Cardiovascular Exam Cardiovascular Exam: REGULAR RHYTHM - GI/Abdominal Exam GI & Abdominal Exam: Soft - Exam External exam: NORMAL EXTERNAL EXAM - Extremities Exam Extremities Exam: Normal Inspection - Neurological Exam Neurological Exam: Alert, Awake - Psychiatric Exam Psychiatric exam: Normal Affect, Normal Mood - Skin Skin Exam: Intact Assessment and Plan (1) Left ventricular dysfunction Assessment & Plan: Pt for ICD continue optimal chf medications Status: Acute (2) CHF (congestive heart failure) Status: Chronic
[2016-10-18] MEDS: (Novolin R) Insulin Human Regular 100 units/ml vial SC SCH ×4 (08:05→22:06)
[2016-10-18] MEDS: (Novolog Mix 70/30) Insulin Aspart/Insulin Aspar 100 units/ml SC SCH ×2 (08:05→17:27)
[2016-10-18] MEDS: Enoxaparin 40 mg Syringe SC SCH (11:04)
[2016-10-18] MEDS: Collagenase 250 Units/gm Ointment(30 gm) TOP SCH (11:06)
--- NOTE | 2016-10-18 13:12 | CP.PCM.PN ---
Subjective - Date & Time of Evaluation Date of Evaluation: 10/18/16 Time of Evaluation: 13:10 - Subjective Subjective: 46 y/o male seen and evaluated with stable right foot ulceration. patient is awake in bed and doing well today. Denies any complaints of pain in the foot. Denies any acute overnigght events. Denies any f/c/n//vosb. Objective - Vital Signs/Intake and Output Vital Signs (last 24 hours): Temp Pulse Resp BP Pulse Ox 98.1 F 76 20 116/75 95 10/18/16 08:30 10/18/16 09:15 10/18/16 08:30 10/18/16 08:30 10/18/16 08:30 Intake and Output: 10/18/16 10/18/16 06:59 18:59 Intake Total 740 Balance 740 - Medications Medications: Current Medications Aspirin (Aspirin Chewable) 81 mg PO DAILY [facility] Last Admin: 10/18/16 11:04 Dose: 81 mg Carvedilol (Coreg) 3.125 mg PO BID [facility] Last Admin: 10/18/16 11:04 Dose: 3.125 mg Collagenase (Santyl) 0 gm TOP DAILY [facility] Last Admin: 10/18/16 11:06 Dose: 1 applic Enoxaparin Sodium (Lovenox) 40 mg SC DAILY [facility] Last Admin: 10/18/16 11:04 Dose: 40 mg Famotidine (Pepcid) 20 mg PO BID [facility] Last Admin: 10/18/16 11:03 Dose: 20 mg Insulin Aspart (Novolog Mix 70/30 (70/30 Units/Ml)) 24 units SC BIDAC [facility] Insulin Human Regular (Novolin R) 0 unit SC ACHS [facility] PRN Reason: Protocol Last Admin: 10/18/16 12:05 Dose: 8 unit Rosuvastatin Calcium (Crestor) 5 mg PO HS [facility] Last Admin: 10/17/16 22:13 Dose: 5 mg - Labs Labs: 10/17/16 06:28 10/17/16 06:28 PT 11.1 SECONDS (9.7-12.2) 10/14/16 07:07 INR 1.0 10/14/16 07:07 APTT 31 SECONDS (21-34) 10/14/16 07:07 - Constitutional Appears: Well, Non-toxic, No Acute Distress - Extremities Exam Additional comments: Vasc: DP 2/4, PT 1/4, Temp gradient wnl, Cap fill time < 4 s x 7 digit Derm: NO edema, no erythema, roughly 1.4 cm x .4 cm open lesions that is not deep on the plantar distal aspect of the right foot at ulceration site, diffuse fibrotic covering, surrounding skin is hypertrophic from healing process, no erythema, no clinical signs of infection noted, area of injury to nail appears to be healed. 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 - Neurological Exam Neurological Exam: Alert, Awake, Oriented x3 - Psychiatric Exam Psychiatric exam: Normal Affect, Normal Mood Assessment and Plan - Assessment and Plan (Free Text) Assessment: 46 y/o male with ulceration to right foot amputation site s/p right digit amputation roughly 4 years ago. Plan: Patient evaluated and chart reviewed. Discussed with Dr. Soler. applied AAMIR carcamo to right foot Wound is stable and will just need local wound care. Can f/u with Dr. Soler when d/c's. Will continue to follow for local wound care while admitted
[2016-10-19 01:14] VITALS: RESP 20; O2SAT 96
[2016-10-19] MEDS: (Novolin R) Insulin Human Regular 100 units/ml vial SC SCH ×2 (07:36→12:19)
[2016-10-19] MEDS: (Novolog Mix 70/30) Insulin Aspart/Insulin Aspar 100 units/ml SC SCH (07:40)
[2016-10-19] MEDS: Enoxaparin 40 mg Syringe SC SCH (09:48)
[2016-10-19] MEDS ORDERED: (Novolog) Insulin Aspart, Recombinant 100 u/ml 10 ml vial SC SCH (11:30)
[2016-10-19 11:49] VITALS: BP 120/71; PULSE 73; TEMP 97.2
[2016-10-19] MEDS: Collagenase 250 Units/gm Ointment(30 gm) TOP SCH (12:22)
--- NOTE | 2016-10-19 13:28 | CP.PCM.PN ---
<Lee Souza - Last Filed: 10/19/16 18:09> Subjective - Date & Time of Evaluation Date of Evaluation: 10/19/16 Time of Evaluation: 13:25 - Subjective Subjective: Cardiology Progress Note Dr. Arrieta Patient seen and examined at the bedside. No acute distress. No acute events overnight. Nursing staff reports no issues. Patient pending transfer for ICD placement. The patient is NPO. The patient has no cardiopulmonary complaints at this time. The patient denies fever, chills, headache, chest pain, palpitations, SOB, abdominal pain, N/V/D/C, changes in bowel/bladder, and extremity paresthesias. Objective - Vital Signs/Intake and Output Vital Signs (last 24 hours): Temp Pulse Resp BP Pulse Ox 97.2 F L 73 20 120/71 96 10/19/16 11:49 10/19/16 11:49 10/19/16 11:49 10/19/16 11:49 10/19/16 11:49 - Medications Medications: Current Medications Aspirin (Aspirin Chewable) 81 mg PO DAILY [facility] Last Admin: 10/19/16 11:46 Dose: 81 mg Carvedilol (Coreg) 3.125 mg PO BID [facility] Last Admin: 10/19/16 11:46 Dose: 3.125 mg Collagenase (Santyl) 0 gm TOP DAILY [facility] Last Admin: 10/19/16 12:22 Dose: 1 applic Enoxaparin Sodium (Lovenox) 40 mg SC DAILY [facility] Last Admin: 10/19/16 09:48 Dose: 40 mg Famotidine (Pepcid) 20 mg PO BID [facility] Last Admin: 10/19/16 09:47 Dose: Not Given Insulin Aspart (Novolog) 4 unit SC [facility] Last Admin: 10/19/16 12:19 Dose: Not Given Insulin Glargine (Lantus) 24 unit SC [facility] Insulin Human Regular (Novolin R) 0 unit SC [facility] PRN Reason: Protocol Last Admin: 10/19/16 12:19 Dose: Not Given Rosuvastatin Calcium (Crestor) 5 mg PO HS [facility] Last Admin: 10/18/16 22:06 Dose: 5 mg - Labs Labs: 10/17/16 06:28 10/17/16 06:28 PT 11.1 SECONDS (9.7-12.2) 10/14/16 07:07 INR 1.0 10/14/16 07:07 APTT 31 SECONDS (21-34) 10/14/16 07:07 - Additional Findings Additional findings: - Constitutional Appears: Well, No Acute Distress - Head Exam Head Exam: ATRAUMATIC, NORMAL INSPECTION, NORMOCEPHALIC - Eye Exam Eye Exam: EOMI, Normal appearance, PERRL - ENT Exam ENT Exam: Mucous Membranes Moist, Normal Exam - Neck Exam Neck exam: Positive for: Full Rom, Normal Inspection. Negative for: Lymphadenopathy - Respiratory Exam Respiratory Exam: Clear to Auscultation Bilateral, NORMAL BREATHING PATTERN. absent: Rhonchi, Wheezes - Cardiovascular Exam Cardiovascular Exam: REGULAR RHYTHM, RRR, +S1, +S2. absent: Diastolic murmur, Systolic Murmur - GI/Abdominal Exam GI & Abdominal Exam: Normal Bowel Sounds, Soft. absent: Diminished Bowel Sounds , Distended, Firm, Guarding, Tenderness - Extremities Exam Extremities exam: Positive for: normal inspection (wounds cared for by podiatry service) - Back Exam Back exam: NORMAL INSPECTION. absent: CVA tenderness (L), CVA tenderness (R) - Neurological Exam Neurological exam: Alert, CN II-XII Intact, Normal Gait, Oriented x3 Assessment and Plan (1) Hypertension Status: h (2) Left bundle branch block Status: h (3) Positive cardiac stress test Status: h (4) Uncontrolled diabetes mellitus Status: h (5) Systolic heart failure, chronic Assessment & Plan: Patient pending transfer for BiV ICD placement Inferior and Anterior-apical Myocardial Wall Defects on Nuclear Stress Test Cardiac Cath- negative Patient currently NPO Continue Coreg 3.125mg PO BID Continue Aspirin 81mg PO daily Hemodynamically stable at this time Normotensive Case Discussed with Dr. Berny Souza PGY1 Status: h <Peter Arrieta - Last Filed: 11/27/16 09:57> Objective - Vital Signs/Intake and Output Vital Signs (last 24 hours): Temp Pulse Resp BP Pulse Ox 97.2 F L 73 20 120/71 96 10/19/16 11:49 10/19/16 11:49 10/19/16 11:49 10/19/16 11:49 10/19/16 11:49 - Labs Labs: 10/17/16 06:28 10/17/16 06:28 PT 11.1 SECONDS (9.7-12.2) 10/14/16 07:07 INR 1.0 10/14/16 07:07 APTT 31 SECONDS (21-34) 10/14/16 07:07 Attending/Attestation - Attestation I have personally seen and examined this patient.: Yes I have fully participated in the care of the patient.: Yes I have reviewed all pertinent clinical information, including history, physical exam and plan: Yes Notes (Text): 11/27/16 09:57 Pt to be trasferred for ICD. BP stable no cp
--- NOTE | 2016-10-19 19:26 | CP.PCM.DIS ---
<Suzanne Sutherland - Last Filed: 10/19/16 19:22> Provider - Provider Date of Admission: 10/12/16 17:46 Attending physician: Florentino Felix MD Primary care physician: [facility]: Dr. Koehler Consults: Cardiology: Dr. Arrieta Cardiology: Dr. Montague Podiatry: Dr. Soler Time Spent in preparation of Discharge (in minutes): 31 Diagnosis - Discharge Diagnosis (1) Diabetic ulcer of foot associated with diabetes mellitus due to underlying condition, limited to breakdown of skin Status: c Comment: Please see hospital course. (2) Uncontrolled diabetes mellitus Status: h Comment: Please see hospital course. (3) Left ventricular dysfunction Status: c Comment: s/p cardiac cath. Please see hospital course. Hospital Course - Lab Results Lab Results: Most Recent Lab Values WBC 7.3 K/uL (4.8-10.8) 10/17/16 06:28 RBC 4.75 Mil/uL (4.40-5.90) 10/17/16 06:28 Hgb 14.2 g/dL (12.0-18.0) 10/17/16 06:28 Hct 43.2 % (35.0-51.0) 10/17/16 06:28 MCV 90.9 fL (80.0-94.0) 10/17/16 06:28 MCH 29.9 pg (27.0-31.0) 10/17/16 06:28 MCHC 32.9 g/dL (33.0-37.0) L 10/17/16 06:28 RDW 12.6 % (11.5-14.5) 10/17/16 06:28 Plt Count 281 K/uL (130-400) 10/17/16 06:28 MPV 9.2 fL (7.2-11.7) 10/17/16 06:28 Neut % (Auto) 67.6 % (50.0-75.0) 10/17/16 06:28 Lymph % (Auto) 22.9 % (20.0-40.0) 10/17/16 06:28 Dukes % (Auto) 7.4 % (0.0-10.0) 10/17/16 06:28 Eos % (Auto) 1.4 % (0.0-4.0) 10/17/16 06:28 Baso % (Auto) 0.7 % (0.0-2.0) 10/17/16 06:28 Neut # 5.0 K/uL (1.8-7.0) 10/17/16 06:28 Lymph # 1.7 K/uL (1.0-4.3) 10/17/16 06:28 Dukes # 0.5 K/uL (0.0-0.8) 10/17/16 06:28 Eos # 0.1 K/uL (0.0-0.7) 10/17/16 06:28 Baso # 0.1 K/uL (0.0-0.2) 10/17/16 06:28 PT 11.1 SECONDS (9.7-12.2) 10/14/16 07:07 INR 1.0 10/14/16 07:07 APTT 31 SECONDS (21-34) 10/14/16 07:07 Sodium 136 mmol/L (132-148) 10/17/16 06:28 Potassium 4.0 mmol/L (3.6-5.2) 10/17/16 06:28 Chloride 96 mmol/L (98-107) L 10/17/16 06:28 Carbon Dioxide 32 mmol/L (22-30) H 10/17/16 06:28 Anion Gap 12 (10-20) 10/17/16 06:28 BUN 24 mg/dL (9-20) H 10/17/16 06:28 Creatinine 0.7 MG/DL (0.8-1.5) L 10/17/16 06:28 Est GFR ( Amer) > 60 10/17/16 06:28 Est GFR (Non-Af Amer) > 60 10/17/16 06:28 POC Glucose (mg/dL) 275 mg/dL (65-110) H 10/19/16 12:21 Random Glucose 279 mg/dL (75-110) H 10/17/16 06:28 Hemoglobin A1c 14.6 % (4.2-6.5) H 10/13/16 06:47 Calcium 8.3 mg/dl (8.6-10.4) L 10/17/16 06:28 Magnesium 2.1 mg/dL (1.6-2.3) 10/17/16 06:28 Total Bilirubin 0.5 mg/dL (0.2-1.3) 10/17/16 06:28 AST 32 U/L (17-59) 10/17/16 06:28 ALT 30 U/L (21-72) 10/17/16 06:28 Alkaline Phosphatase 88 U/L (38-126) 10/17/16 06:28 Total Creatine Kinase 28 U/L (55-170) L 10/13/16 04:21 CK-MB (Mass) 0.68 ng/mL (0.0-3.38) 10/13/16 04:21 Troponin I 0.0150 ng/mL (0.00-0.120) 10/12/16 16:37 Troponin I, Quant < 0.0120 ng/mL (0.00-0.120) 10/13/16 04:21 NT-Pro-B Natriuret Pep 1140 pg/mL (0-450) H 10/12/16 16:37 Total Protein 7.1 g/dL (6.3-8.3) 10/17/16 06:28 Albumin 3.4 g/dL (3.5-5.0) L 10/17/16 06:28 Globulin 3.7 gm/dL (2.2-3.9) 10/17/16 06:28 Albumin/Globulin Ratio 0.9 (1.0-2.1) L 10/17/16 06:28 Triglycerides 201 mg/dL (0-149) H 10/13/16 06:47 Cholesterol 171 mg/dL (0-199) 10/13/16 06:47 LDL Cholesterol Direct 111 mg/dL (0-129) 10/13/16 06:47 HDL Cholesterol 19 mg/dL (30-70) L 10/13/16 06:47 - Hospital Course Hospital Course: On hospital admission: HPI: Patient is a 46 year old male with PMHx of DM and hypertension presenting to the ED because his brand ambassador promotional model, Dr. Arrieta, sent him in. He was told that he had an abnormal stress test and needs a cardiac catheterization. He denies acute complaints, he denies any current chest pain, palpitations, dyspnea at rest or exertion. Per hospital records, patient had nuclear stress test on 10/12/16 that showed a defect in the mid-inferior wall and in the apical anterior wall, as well as an EKG that shows a left bundle branch block. PMHx: DM, HTNP SHx: R foot 3rd-5th digit amputation Allergies: NKDAFam hx: father - DM Social hx: denies smoking or drug hx. Occasional alcohol use During hospital course: In ED: EKG showed normal sinus rhythm with left bundle branch block. During hospital course, the following procedure was done: Cardiac catheterization (10/15/16) : Normal left main, normal left anterior descending artery, normal circumflex. RCA is normal. LV gram shows severe left ventricular systolic dysfunction. (1) Positive cardiac stress test: Throughout the course of stay, patient was resting comfortably and denied all complaints including chest pain, palpitations , shortness of breath, abdominal pain, nausea, vomiting, constipation, dysuria, and increased urinary frequency. ROMIs were negative x3. BNP was elevated at 1140. Cardiac catheterization was negative for ischemic cardiomyopathy. Patient was seen and started on Coreg 3.125mg PO BID, Aspirin 81mg PO daily, Simvastatin 20mg PO HS. Pt was also placed on Pepcid 20mg PO BID and Heparin 5000 U SC Q8H as prophylaxis. Patient was transferred to [facility] on for biventricular ICD placement. (2) Diabetes mellitus type II: Patient had poorly controlled type 2 diabetes mellitus with HbA1c of 14.6 and Accucheck readings ranging mostly from 270s- 370s. Lowest glucose reading was 100 on 10/17/16 and highest reading was 397 on . Patient denied polydipsia, polyuria, polyphagia, fatigue, weakness, and abdominal pain throughout hospital course. Patient was put on insulin sliding scale, lantus 10 units, and heart healthy, mod carbohydrate diet with diabetes education on 10/13/16. After further poor glucose control, patient was put on Novolog Mix 70/30 15 units BID with insulin sliding scale, discontinuing lantus. Novolog mix was increased to 24 units BID following cardiac catheterization. Glucose control was still poor on 10/19/16 so restarted lantus at 24 units SC every night with 4 units Novolog at every meal. Endocrinology, Dr. Mckenzie, was consulted for possible outpatient follow up. During the hospital course, the following specialists were consulted: Dr. Soler, DPM - Podiatry: (10/13/16) Debrided right foot ulcer at site of amputation, ordered santyl cream to be applied daily to ulcer under dressing. () wound redressed with bacitracin and deemed stable for local wound care during hospital course (10/15/16) continued to follow ulcer (10/16/16) discussed with Dr. Soler about following up as outpatient. (10/17/16) Applied santyl and changed dressing. Recommend Dr. Soler for outpatient care. Dr. Arrieta/Eddi - Cardiology: (10/13/16- 10/15/16) Recommended cardiac catheterization per abnormal nuclear stress test on 10/12/16 - if cath is negative for ischemic cardiomyopathy then recommended biventricular ICD placement. Please note this is a summary of hospital course. For full detail refer to patient chart. Discharge instructions were given as follows: Patient for transfer to [facility] for Biventricular ICD placement. Patient currently NPO for procedure. Patient to continue on the following medications: Aspirin 81 mg po daily, Coreg 3.125 mg po BID, Santyl topical daily application to affected area, Lovenox 40 mg SC daily, Pepcid 20 mg po BID, Regular Insulin Sliding Scale - high protocol , Insulin Aspart 4 unit SC ACHS, Lantus 24 U SC HS. Please administer half of Lantus dose when NPO. Patient to follow-up with community product specialist, Dr. Mckenzie, consulted. - Date & Time of H&P Date of H&P: 10/12/16 Time of H&P: 18:13 Discharge Exam - Head Exam Head Exam: ATRAUMATIC, NORMAL INSPECTION, NORMOCEPHALIC - Eye Exam Eye Exam: EOMI, Normal appearance, PERRL Pupil Exam: NORMAL ACCOMODATION, PERRL - Respiratory Exam Respiratory Exam: Clear to PA & Lateral, NORMAL BREATHING PATTERN, UNREMARKABLE - Cardiovascular Exam Cardiovascular Exam: Gallop, +S1, +S2 - GI/Abdominal Exam GI & Abdominal Exam: Normal Bowel Sounds, Unremarkable. absent: Distended, Firm , Guarding - Extremities Exam Extremities exam: full ROM, normal capillary refill, pedal pulses present - Back Exam Back exam: NORMAL INSPECTION - Neurological Exam Neurological exam: Alert, CN II-XII Intact, Oriented x3 - Psychiatric Exam Psychiatric exam: Normal Affect, Normal Mood - Skin Skin Exam: Dry, Intact, Normal Color Discharge Plan - Discharge Medications Prescriptions: Rosuvastatin Calcium [Crestor] 5 mg PO HS #30 tab Insulin Glargine, Recombina [Lantus] 24 unit SC HS #720 unit Enoxaparin [Lovenox] 40 mg SC DAILY #30 syr Insulin Human Regular [Novolin R] See Protocol SC ACHS #300 unit Insulin Aspart, Recombinant [Novolog] 4 unit SC ACHS #360 unit Famotidine [Pepcid] 20 mg PO BID #60 tab Collagenase [Santyl] 30 gm TOP DAILY #1 tube - Follow Up Plan Condition: FAIR Disposition: Trans to Other Acute Care Hosp Additional Instructions: Patient for transfer to [facility] for Biventricular ICD placement. Patient currently NPO for procedure. Patient to continue on the following medications: Aspirin 81 mg po daily, Coreg 3.125 mg po BID, Santyl topical daily application to affected area, Lovenox 40 mg SC daily, Pepcid 20 mg po BID, Regular Insulin Sliding Scale - high protocol , Insulin Aspart 4 unit SC ACHS, Lantus 24 U SC HS. Please administer half of Lantus dose when NPO. Patient to follow-up with community product specialist, Dr. Mckenzie, consulted. Referrals: Peter Arrieta MD [Staff Provider] - Holly Mckenzie MD [Medical Doctor] - Crystal Montague MD [Staff Provider] - <Yong Turner - Last Filed: 11/23/16 12:11> Provider - Provider Date of Admission: 10/12/16 17:46 Attending physician: Florentino Felix MD Hospital Course - Lab Results Lab Results: Most Recent Lab Values WBC 7.3 K/uL (4.8-10.8) 10/17/16 06:28 RBC 4.75 Mil/uL (4.40-5.90) 10/17/16 06:28 Hgb 14.2 g/dL (12.0-18.0) 10/17/16 06:28 Hct 43.2 % (35.0-51.0) 10/17/16 06:28 MCV 90.9 fL (80.0-94.0) 10/17/16 06:28 MCH 29.9 pg (27.0-31.0) 10/17/16 06:28 MCHC 32.9 g/dL (33.0-37.0) L 10/17/16 06:28 RDW 12.6 % (11.5-14.5) 10/17/16 06:28 Plt Count 281 K/uL (130-400) 10/17/16 06:28 MPV 9.2 fL (7.2-11.7) 10/17/16 06:28 Neut % (Auto) 67.6 % (50.0-75.0) 10/17/16 06:28 Lymph % (Auto) 22.9 % (20.0-40.0) 10/17/16 06:28 Dukes % (Auto) 7.4 % (0.0-10.0) 10/17/16 06:28 Eos % (Auto) 1.4 % (0.0-4.0) 10/17/16 06:28 Baso % (Auto) 0.7 % (0.0-2.0) 10/17/16 06:28 Neut # 5.0 K/uL (1.8-7.0) 10/17/16 06:28 Lymph # 1.7 K/uL (1.0-4.3) 10/17/16 06:28 Dukes # 0.5 K/uL (0.0-0.8) 10/17/16 06:28 Eos # 0.1 K/uL (0.0-0.7) 10/17/16 06:28 Baso # 0.1 K/uL (0.0-0.2) 10/17/16 06:28 PT 11.1 SECONDS (9.7-12.2) 10/14/16 07:07 INR 1.0 10/14/16 07:07 APTT 31 SECONDS (21-34) 10/14/16 07:07 Sodium 136 mmol/L (132-148) 10/17/16 06:28 Potassium 4.0 mmol/L (3.6-5.2) 10/17/16 06:28 Chloride 96 mmol/L (98-107) L 10/17/16 06:28 Carbon Dioxide 32 mmol/L (22-30) H 10/17/16 06:28 Anion Gap 12 (10-20) 10/17/16 06:28 BUN 24 mg/dL (9-20) H 10/17/16 06:28 Creatinine 0.7 MG/DL (0.8-1.5) L 10/17/16 06:28 Est GFR ( Amer) > 60 10/17/16 06:28 Est GFR (Non-Af Amer) > 60 10/17/16 06:28 POC Glucose (mg/dL) 275 mg/dL (65-110) H 10/19/16 12:21 Random Glucose 279 mg/dL (75-110) H 10/17/16 06:28 Hemoglobin A1c 14.6 % (4.2-6.5) H 10/13/16 06:47 Calcium 8.3 mg/dl (8.6-10.4) L 10/17/16 06:28 Magnesium 2.1 mg/dL (1.6-2.3) 10/17/16 06:28 Total Bilirubin 0.5 mg/dL (0.2-1.3) 10/17/16 06:28 AST 32 U/L (17-59) 10/17/16 06:28 ALT 30 U/L (21-72) 10/17/16 06:28 Alkaline Phosphatase 88 U/L (38-126) 10/17/16 06:28 Total Creatine Kinase 28 U/L (55-170) L 10/13/16 04:21 CK-MB (Mass) 0.68 ng/mL (0.0-3.38) 10/13/16 04:21 Troponin I 0.0150 ng/mL (0.00-0.120) 10/12/16 16:37 Troponin I, Quant < 0.0120 ng/mL (0.00-0.120) 10/13/16 04:21 NT-Pro-B Natriuret Pep 1140 pg/mL (0-450) H 10/12/16 16:37 Total Protein 7.1 g/dL (6.3-8.3) 10/17/16 06:28 Albumin 3.4 g/dL (3.5-5.0) L 10/17/16 06:28 Globulin 3.7 gm/dL (2.2-3.9) 10/17/16 06:28 Albumin/Globulin Ratio 0.9 (1.0-2.1) L 10/17/16 06:28 Triglycerides 201 mg/dL (0-149) H 10/13/16 06:47 Cholesterol 171 mg/dL (0-199) 10/13/16 06:47 LDL Cholesterol Direct 111 mg/dL (0-129) 10/13/16 06:47 HDL Cholesterol 19 mg/dL (30-70) L 10/13/16 06:47 Attending/Attestation - Attestation I have personally seen and examined this patient.: Yes I have fully participated in the care of the patient.: Yes I have reviewed all pertinent clinical information, including history, physical exam and plan: Yes Notes (Text): Patient seen and examined with the resident. Agree with the resident's evaluation, assessment and plan. During hospital course, the following procedure was done: Cardiac catheterization (10/15/16) : Normal left main, normal left anterior descending artery, normal circumflex. RCA is normal. LV gram shows severe left ventricular systolic dysfunction.
[2016-10-19] MEDS ORDERED: (Lantus) Insulin Glargine, Recombinant SC SCH (22:00)
== END 2016-10-19 14:04 | disposition short-term general hospital (02) | DRG 124 ==
LOC: C.ER 12:04 → C.9E 17:46 → C.5T 18:32 → C.6T 10-16 00:22
PROVIDERS: ADMIT Internal Medicine; ATTEND Internal Medicine
PROC: 4A023N7 Measurement of Cardiac Sampling and Pressure, Left Heart, Percutaneous Approach (ICD-10-PCS; 2016-10-15)
PROC: B2151ZZ Fluoroscopy of Left Heart using Low Osmolar Contrast (ICD-10-PCS; 2016-10-15)
PROC: B2111ZZ Fluoroscopy of Multiple Coronary Arteries using Low Osmolar Contrast (ICD-10-PCS; 2016-10-15)
PROC: 0HDMXZZ Extraction of Right Foot Skin, External Approach (ICD-10-PCS; principal; 2016-10-19)
DX: I11.0 Hypertensive heart disease with heart failure (principal); E11.621 Type 2 diabetes mellitus with foot ulcer; L97.519 Non-pressure chronic ulcer of other part of right foot with unspecified severity; E11.65 Type 2 diabetes mellitus with hyperglycemia; L97.511 Non-pressure chronic ulcer of other part of right foot limited to breakdown of skin; I44.7 Left bundle-branch block, unspecified; I50.22 Chronic systolic (congestive) heart failure; I25.10 Atherosclerotic heart disease of native coronary artery without angina pectoris; Z79.4 Long term (current) use of insulin; Z79.84 Long term (current) use of oral hypoglycemic drugs; Z79.82 Long term (current) use of aspirin; Z83.3 Family history of diabetes mellitus

== ENCOUNTER 2017-10-25 14:41 | Inpatient (IN) | payer MEDICAID, SELFPAY ==
--- NOTE | 2017-10-25 16:03 | C.PDOC ---
History Of Present Illness 47 y/o male with history of DM, HTN and Pacemaker placed in presents to ED with c/o ulcer to left second toe for 1 week associated with foot swelling since this morning. Patient states he noted the ulcer but there was no swelling until today which prompted visit. Patient denies fever, chills, numbness,injury or any other complaints at this time. did not take dm meds today. Time Seen by Provider: 10/25/17 15:31 Chief Complaint (Nursing): Abnormal Skin Integrity History Per: Patient History/Exam Limitations: no limitations Onset/Duration Of Symptoms: Days Current Symptoms Are (Timing): Still Present Past Medical History Reviewed: Historical Data, Nursing Documentation, Vital Signs Vital Signs: Last Vital Signs Temp 97.6 F 10/26/17 07:00 Pulse 82 10/26/17 07:00 Resp 20 10/26/17 07:00 BP 156/92 H 10/26/17 07:00 Pulse Ox 98 10/26/17 13:46 - Medical History PMH: Diabetes, HTN Surgical History: No Surg Hx - [facility] Procedures DRAINAGE OF L FOOT SUBCU/FASCIA, OPEN APPROACH (07/07/15) EXTRACTION OF RIGHT FOOT SKIN, EXTERNAL APPROACH (10/12/16) FLUOROSCOPY OF LEFT HEART USING LOW OSMOLAR CONTRAST (10/12/16) FLUOROSCOPY OF MULT COR ART USING L OSM CONTRAST (10/12/16) MEASURE OF CARDIAC SAMPL & PRESSURE, L HEART, PERC APPROACH (10/12/16) RESECTION OF LEFT METATARSAL, OPEN APPROACH (07/07/15) Family History: States: No Known Family Hx - Social History Hx Tobacco Use: No Hx Alcohol Use: No Hx Substance Use: No - Immunization History Hx Tetanus Toxoid Vaccination: No Hx Influenza Vaccination: No Hx Pneumococcal Vaccination: No Review Of Systems Constitutional: Negative for: Fever, Chills Cardiovascular: Negative for: Chest Pain Respiratory: Negative for: Shortness of Breath Musculoskeletal: Positive for: Foot Pain Skin: Negative for: Rash Neurological: Negative for: Weakness, Numbness Physical Exam - Physical Exam Appears: Non-toxic, No Acute Distress Skin: Warm, Dry, No Rash Head: Atraumatic, Normacephalic Oral Mucosa: Moist Neck: Normal ROM, Supple Cardiovascular: Rhythm Regular Respiratory: Normal Breath Sounds, No Rales, No Rhonchi, No Wheezing Extremity: Capillary Refill (<2 seconds), No Deformity, Swelling (dorsum aspect of left mid foot to toes), Other (.5cm ulcer to second toe on dorsum aspect of left foot. Dusky color left second toe. Right foot 3-5 toes amputated. Crusty round growth around area of 3-5 amputated toes) Extremity: Bilateral: Normal ROM Pulses: Left Dorsalis Pedis: Decreased (Faintly palpable), Right Dorsalis Pedis : Normal Neurological/Psych: Oriented x3, Normal Speech, Normal Motor, Normal Sensation ED Course And Treatment - Laboratory Results Result Diagrams: 10/26/17 06:09 10/26/17 06:09 ECG: Interpreted By Me, Viewed By Me ECG Rhythm: V Paced Rate From EC (BPM) O2 Sat by Pulse Oximetry: 98 (RA) Pulse Ox Interpretation: Normal Medical Decision Making Medical Decision Making: discussed with podiatry resident, he will come see patient in ED. podiatry has seen pt, discussed with Dr Canales, will admit to her service. Disposition Discussed With .: Rohini Canales Doctor Will See Patient In The: Hospital - Disposition Disposition: HOSPITALIZED Disposition Time: 17:31 Condition: GOOD - Clinical Impression Clinical Impression: Diabetic ulcer of foot associated with diabetes mellitus due to underlying condition, limited to breakdown of skin, Uncontrolled diabetes mellitus - PA / [employer] / Resident Statement MD/DO has reviewed & agrees with the documentation as recorded. - Scribe Statement The provider has reviewed the documentation as recorded by the Heriberto Marks All medical record entries made by the Heriberto were at my direction and personally dictated by me. I have reviewed the chart and agree that the record accurately reflects my personal performance of the history, physical exam, medical decision making, and the department course for this patient. I have also personally directed, reviewed, and agree with the discharge instructions and disposition.
[2017-10-25] MEDS ORDERED: Sodium Chloride 0.9% 1,000 ML IV SCH (16:30)
[2017-10-25 17:08] LABS: ALB/GLOB RATIO 0.8 (1.0-2.1); ALBUMIN 3.7 g/dL (3.5-5.0); ALT/SGPT < 6 U/L (21-72); AST/SGOT 28 U/L (17-59); BLOOD UREA NITROGEN 20 mg/dL (9-20); CALCIUM 8.9 mg/dl (8.6-10.4); GFR AFRICAN-AMERICAN > 60; GFR NON-AFRICAN AMERICAN > 60
[2017-10-25 17:16] LABS: BASO # 0.1 K/uL (0.0-0.2); BASO % 1.5 % (0.0-2.0); EOS # 0.1 K/uL (0.0-0.7); EOS % 1.2 % (0.0-4.0); HEMOGLOBIN 15.4 g/dL (12.0-18.0); LYMPH # 1.6 K/uL (1.0-4.3); LYMPH % 21.4 % (20.0-40.0); MEAN CELL VOLUME 86.8 fL (80.0-94.0); MEAN CORPUSCULAR HEMOGLOBIN 29.5 pg (27.0-31.0); MONO # 0.4 K/uL (0.0-0.8); MONO % 5.7 % (0.0-10.0); NEUT # 5.3 K/uL (1.8-7.0); NEUT % 70.2 % (50.0-75.0); NRBC % 0.1 % (0.0-2.0); RBC 5.21 Mil/uL (4.40-5.90); RED CELL DISTRIBUTION WIDTH 13.9 % (11.5-14.5); WHITE BLOOD COUNT 7.6 K/uL (4.8-10.8)
[2017-10-25] MEDS ORDERED: Vancomycin 1 gm/NS 200 ml 1 GM/200 ML BAG IVPB STA (17:23)
[2017-10-25] MEDS ORDERED: Piperacill/Tazo 3.375gm in Dex 3.375 GM/50 ML BAG IVPB STA (17:25)
[2017-10-25] MEDS ORDERED: (Novolin R) Insulin Human Regular 100 units/ml vial SC ONE (17:29)
[2017-10-25] MEDS ORDERED: (Novolin R) Insulin Human Regular 100 units/ml vial ONE (17:35)
[2017-10-25] MEDS ORDERED: Piperacillin/Tazobact 3.375 gm 100 ML IVPB ONE (17:35)
--- NOTE | 2017-10-25 17:45 | RAD ---
PROCEDURE: Radiographs of the right tibia and fibula. HISTORY: ulcer COMPARISON: None available. TECHNIQUE: Frontal and lateral views obtained. FINDINGS: BONES: No acute fracture or destructive lesion. Bone alignment and mineralization are normal. JOINT SPACES: Unremarkable. OTHER FINDINGS: Atherosclerotic vascular calcifications are present. IMPRESSION: No radiographic evidence for bony erosion or destruction to suggest osteomyelitis.
[2017-10-25] MEDS ORDERED: Piperacillin/Tazobact 3.375 GM in Sodium Chloride 100 ML IVPB SCH (18:15)
--- NOTE | 2017-10-25 18:27 | CP.PCM.PN ---
Subjective - Date & Time of Evaluation Date of Evaluation: 10/25/17 Time of Evaluation: 18:24 - Subjective Subjective: 47 year old male with past medical history of uncontrolled diabetes, history of diabetic foot ulcer, left ventricular dysfunction status post biventricular ICD , HTN presents to hospital with abscess of left 2nd toe that began about 1 month ago. Patient states that something heavy fell on his foot. Since then, toe has become progressively red and swollen. There was a small wound that formed on the toe that has scabbed over which the patient picked at. Patient did not apply any ointment to the wound. Patient states that he has not take any of his medications for about 3 months. He has poor follow up with PMD, Dr. Koehler. Patient denies having any F/C at home. Denies having any CP, abd pain, N /V/D/C, dysuria, hematuria. patient does complain of SOB with exertion for past few months. PMHx: stated above Sx: right 3 toes amputation, appendicitis, left 5th toe partial amputation, AICD placement NKDA Meds: no home meds Social; Denies tobacco, ETOH or drug use Objective - Vital Signs/Intake and Output Vital Signs (last 24 hours): Temp Pulse Resp BP Pulse Ox 98.3 F 104 H 18 171/99 H 98 10/25/17 17:25 10/25/17 17:25 10/25/17 17:25 10/25/17 17:25 10/25/17 17:31 - Medications Medications: Current Medications Acetaminophen (Tylenol 325mg Tab) 650 mg PO Q6 PRN PRN Reason: Fever >100.4 F Enoxaparin Sodium (Lovenox) 40 mg SC DAILY [facility] Sodium Chloride (Sodium Chloride 0.9%) 1,000 mls @ 100 mls/hr IV .Q10H [facility] Last Admin: 10/25/17 16:57 Dose: 100 mls/hr Vancomycin/Sodium Chloride (Vancomycin 1 Gm/Ns 200 Ml) 1 gm in 200 mls @ 133 mls/hr IVPB STAT STA PRN Reason: Protocol Stop: 10/25/17 18:53 Sodium Chloride (Sodium Chloride 0.9%) 1,000 mls @ 100 mls/hr IV .Q10H [facility] Vancomycin HCl 1 gm/ Sodium (Chloride) 250 mls @ 166.7 mls/hr IVPB Q12H [facility] PRN Reason: Protocol Piperacillin Sod/Tazobactam Sod (Zosyn 3.375 Gm Iv Premix) 3.375 gm in 50 mls @ 100 mls/hr IVPB Q6H [facility] Pantoprazole Sodium (Protonix Ec Tab) 40 mg PO DAILY [facility] - Labs Labs: 10/25/17 17:11 10/25/17 16:43
--- NOTE | 2017-10-25 18:39 | CP.PCM.HP ---
Addendum entered and electronically signed by Jacqui Talbert DO 10/25/17 19:33: Assessment and plan: Pt is complaining of dyspnea with exertion for past few months. Cardiac cath done in 10/2016 showed normal coronary arteries but severe LV systolic dysfunction. Will consider repeating echo Original Note: <Amn Nitisha - Last Filed: 10/25/17 18:36> History of Present Illness - History of Present Illness History of Present Illness: 47 year old male with past medical history of uncontrolled diabetes, history of diabetic foot ulcer, left ventricular dysfunction status post biventricular ICD , HTN presents to hospital with abscess of left 2nd toe that began about 1 month ago. Patient states that something heavy fell on his foot. Since then, toe has become progressively red and swollen. There was a small wound that formed on the toe that has scabbed over which the patient picked at. Patient did not apply any ointment to the wound. Patient states that he has not take any of his medications for about 3 months. He has poor follow up with PMD, Dr. Koehler. Patient denies having any F/C at home. Denies having any CP, abd pain, N /V/D/C, dysuria, hematuria. patient does complain of SOB with exertion for past few months. PMHx: stated above Sx: right 3 toes amputation, appendicitis, left 5th toe partial amputation, AICD placement NKDA Meds: no home meds Social; Denies tobacco, ETOH or drug use Present on Admission - Present on Admission Any Indicators Present on Admission: No Review of Systems - Constitutional Constitutional: absent: Chills, Fever - EENT Eyes: absent: Change in Vision, Other Visual Disturbances Nose/Mouth/Throat: absent: Nasal Congestion, Sore Throat - Cardiovascular Cardiovascular: Dyspnea on Exertion. absent: Chest Pain, Dyspnea, Edema, Leg Edema, Lightheadedness, Palpitations - Respiratory Respiratory: absent: Cough, Dyspnea, Wheezing, Snoring, Stridor, Chest Congestion, Pain with Coughing - Gastrointestinal Gastrointestinal: absent: Abdominal Pain, Constipation, Diarrhea, Nausea, Vomiting - Genitourinary Genitourinary: absent: Dysuria, Urinary Frequency, Urinary Urgency - Integumentary Integumentary: Skin Ulcer Additional comments: left 2nd toe abscess - Neurological Neurological: absent: Syncope, Tremor, Weakness - Psychiatric Psychiatric: absent: Anxiety, Depression Past Patient History - Tetanus Immunizations Tetanus Immunization: Unknown - Past Medical History & Family History Past Medical History?: Yes - Past Social History Smoking Status: Never Smoked Chewing Tobacco Use: No Cigar Use: No Alcohol: None Drugs: Denies - CARDIAC Hx Hypertension: Yes - PULMONARY Hx Respiratory Disorders: No - NEUROLOGICAL Hx Neurological Disorder: No - HEENT Hx HEENT Problems: No - RENAL Hx Chronic Kidney Disease: No - ENDOCRINE/METABOLIC Hx Diabetes Mellitus Type 1: Yes - HEMATOLOGICAL/ONCOLOGICAL Hx Blood Disorders: No - INTEGUMENTARY Hx Dermatological Problems: No - MUSCULOSKELETAL/RHEUMATOLOGICAL Hx Musculoskeletal Disorders: No Hx Falls: No - GASTROINTESTINAL Hx Gastrointestinal Disorders: No - GENITOURINARY/GYNECOLOGICAL Hx Genitourinary Disorders: No - PSYCHIATRIC Hx Substance Use: No - SURGICAL HISTORY Hx Surgeries: Yes Other/Comment: Right 3 digits amputation foot - ANESTHESIA Hx Anesthesia: No Hx Anesthesia Reactions: No Hx Malignant Hyperthermia: No Meds Allergies/Adverse Reactions: Allergies Allergy/AdvReac Type Severity Reaction Status Date / Time No Known Allergies Allergy Verified 10/12/16 12:14 Physical Exam - Constitutional Appears: Non-toxic, No Acute Distress - Head Exam Head Exam: ATRAUMATIC - ENT Exam ENT Exam: Mucous Membranes Moist - Respiratory Exam Respiratory Exam: Clear to Auscultation Bilateral. absent: Rales, Rhonchi, Wheezes - Cardiovascular Exam Cardiovascular Exam: REGULAR RHYTHM, +S1, +S2. absent: Gallop, Rubs, Systolic Murmur - GI/Abdominal Exam GI & Abdominal Exam: Normal Bowel Sounds, Soft. absent: Distended, Firm, Guarding, Rigid, Tenderness - Extremities Exam Extremities exam: Negative for: pedal edema, tenderness - Neurological Exam Neurological exam: Alert, Oriented x3 - Psychiatric Exam Psychiatric exam: Normal Affect, Normal Mood - Skin Skin Exam: Dry, Warm Additional comments: Left foot 2nd digit: bluish red discoloration with 1 cm ulcer on top of toe Right lateral aspect of toe: black chronic skin changes Right swain: small open abscess noted Results - Vital Signs Recent Vital Signs: Last Vital Signs Temp 98.3 F 10/25/17 17:25 Pulse 104 H 10/25/17 17:25 Resp 18 10/25/17 17:25 BP 171/99 H 10/25/17 17:25 Pulse Ox 98 10/25/17 17:31 - Labs Result Diagrams: 10/25/17 17:11 10/25/17 16:43 Labs: Laboratory Results - last 24 hr 10/25/17 10/25/17 10/25/17 16:08 16:43 17:11 WBC 7.6 RBC 5.21 Hgb 15.4 Hct 45.2 MCV 86.8 D MCH 29.5 MCHC 34.0 RDW 13.9 Plt Count 237 MPV 9.0 Neut % (Auto) 70.2 Lymph % (Auto) 21.4 [place] % (Auto) 5.7 Eos % (Auto) 1.2 Baso % (Auto) 1.5 Neut # (Auto) 5.3 Lymph # (Auto) 1.6 [place] # (Auto) 0.4 Eos # (Auto) 0.1 Baso # (Auto) 0.1 Sodium 133 Potassium 5.1 Chloride 96 L Carbon Dioxide 25 Anion Gap 17 BUN 20 Creatinine 0.6 L Est GFR ( Amer) > 60 Est GFR (Non-Af Amer) > 60 POC Glucose (mg/dL) 390 H Random Glucose 422 H* Calcium 8.9 Total Bilirubin 0.9 AST 28 ALT < 6 L D Alkaline Phosphatase 140 H Total Protein 8.2 Albumin 3.7 Globulin 4.5 H Albumin/Globulin Ratio 0.8 L Serum Ketones Small Assessment & Plan - Assessment and Plan (Free Text) Assessment: 47 year old male with past medical history of uncontrolled diabetes, hx of diabetic foot ulcer, HTN, CHF with biventricular ICD placement is admitted for diabetic foot ulcer of the left 2nd toe. Patient had stable vital signs on admission and no WBC count noted. Diabetic foot ulcer - X rays of bilateral feet are pending - Pt received Zosyn in the ED and will receive vancomycin as well - ID, Dr. Nicholas is consulted - Podiatry, Dr. Soler is consulted - Wound cultures and blood cultures are ordered - Tylenol prn for fever Uncontrolled diabetes - Patient is noted to be hyperglycemic in ED with BS of 422 and with serum ketones. Normal anion gap - Will start pt on NS 100 cc - Will check HgbA1c and lipid panel - Will start pt on lantus 24 units (pt's home dose) and ISS - Accuchecks ACHS - Will hold metformin - Will restart statin therapy with crestor CHF with biventricular ICD - Will continue aspirin - Will continue Coreg Prophylaxis - Pepcid - Lovenox Case discussed with attending, Dr. Canales - Date & Time Date: 10/25/17 Time: 18:40 <Rohini Canales - Last Filed: 10/28/17 20:19> Results - Vital Signs Recent Vital Signs: Last Vital Signs Temp 97.6 F 10/28/17 15:00 Pulse 79 10/28/17 15:00 Resp 20 10/28/17 15:00 BP 148/96 H 10/28/17 15:00 Pulse Ox 100 10/28/17 15:00 - Labs Result Diagrams: 10/28/17 07:26 10/28/17 07:26 Labs: Laboratory Results - last 24 hr 10/27/17 10/28/17 10/28/17 21:23 07:05 07:26 WBC 6.1 RBC 4.62 Hgb 14.0 Hct 41.1 MCV 89.1 MCH 30.3 MCHC 34.0 RDW 13.5 Plt Count 250 MPV 8.9 Neut % (Auto) 65.7 Lymph % (Auto) 24.3 [place] % (Auto) 6.1 Eos % (Auto) 2.8 Baso % (Auto) 1.1 Neut # (Auto) 4.0 Lymph # (Auto) 1.5 [place] # (Auto) 0.4 Eos # (Auto) 0.2 Baso # (Auto) 0.1 Sodium Potassium Chloride Carbon Dioxide Anion Gap BUN Creatinine Est GFR ( Amer) Est GFR (Non-Af Amer) POC Glucose (mg/dL) 176 H 169 H Random Glucose Calcium Vancomycin Trough 10/28/17 10/28/17 10/28/17 07:26 07:26 11:00 WBC RBC Hgb Hct MCV MCH MCHC RDW Plt Count MPV Neut % (Auto) Lymph % (Auto) [place] % (Auto) Eos % (Auto) Baso % (Auto) Neut # (Auto) Lymph # (Auto) [place] # (Auto) Eos # (Auto) Baso # (Auto) Sodium 143 Potassium 4.2 Chloride 105 Carbon Dioxide 28 Anion Gap 13 BUN 12 Creatinine 0.8 Est GFR ( Amer) > 60 Est GFR (Non-Af Amer) > 60 POC Glucose (mg/dL) 258 H Random Glucose 171 H Calcium 8.6 Vancomycin Trough 9.3 10/28/17 16:23 WBC RBC Hgb Hct MCV MCH MCHC RDW Plt Count MPV Neut % (Auto) Lymph % (Auto) [place] % (Auto) Eos % (Auto) Baso % (Auto) Neut # (Auto) Lymph # (Auto) [place] # (Auto) Eos # (Auto) Baso # (Auto) Sodium Potassium Chloride Carbon Dioxide Anion Gap BUN Creatinine Est GFR ( Amer) Est GFR (Non-Af Amer) POC Glucose (mg/dL) 145 H Random Glucose Calcium Vancomycin Trough Attending/Attestation - Attestation I have personally seen and examined this patient.: Yes I have fully participated in the care of the patient.: Yes I have reviewed all pertinent clinical information: Yes Notes (Text): This is a 47 year old male with past medical history of uncontrolled diabetes, hx of diabetic foot ulcer, HTN, CHF with biventricular ICD placement is admitted for diabetic foot ulcer of the left 2nd toe. 1.Diabetic foot ulcer 2. Uncontrolled diabetes 3.Noncompliance with medication and follow up 4.CHF with biventricular ICD Patient was seen and examined by me with the resident. Plan discussed I agree with documentation of the resident's assessment and the plan
--- NOTE | 2017-10-25 19:51 | CP.PCM.CON ---
History of Present Illness - History of Present Illness History of Present Illness: Podiatry Consult Note- Dr. Soler 47 year old male with with history of bilateral forefoot amputations secondary to uncontrolled diabetes pedal ulcers, is seen at bedside for left 2nd toe wound with accompanying redness and swelling. He reports that the wound appeared 1 month ago when something heavy fell on his foot. He did not seek medical attention at that time. He reports the current redness and swelling began about 1 week ago, due to him picked at i, and has progressed to current levels. 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 Patient did not apply any ointment to the wound. He denies and pain to the areas. No recent fever/chills, chest pain, nausea, vomiting, diarrhea, and heavy drainage from wound site. Pt reveals he has a right anterior swain wound that has been present over the last moht as well, due to an abutting contact injury to an object. Pt reports it still has not closed, but is stable, dry, and causes him no distress, pain, and has shown no signs of infection. PMHx: stated above Sx: right 3 toes amputation, appendicitis, left 5th toe partial amputation, AICD placement NKDA Meds: no home meds Social; Denies tobacco, ETOH or drug use Review of Systems - Review of Systems All systems: reviewed and no additional remarkable complaints except Past Patient History - Tetanus Immunizations Tetanus Immunization: Unknown - Past Medical History & Family History Past Medical History?: Yes - Past Social History Smoking Status: Never Smoked Chewing Tobacco Use: No Cigar Use: No Alcohol: None Drugs: Denies - CARDIAC Hx Hypertension: Yes - PULMONARY Hx Respiratory Disorders: No - NEUROLOGICAL Hx Neurological Disorder: No - HEENT Hx HEENT Problems: No - RENAL Hx Chronic Kidney Disease: No - ENDOCRINE/METABOLIC Hx Diabetes Mellitus Type 1: Yes - HEMATOLOGICAL/ONCOLOGICAL Hx Blood Disorders: No - INTEGUMENTARY Hx Dermatological Problems: No - MUSCULOSKELETAL/RHEUMATOLOGICAL Hx Musculoskeletal Disorders: No Hx Falls: No - GASTROINTESTINAL Hx Gastrointestinal Disorders: No - GENITOURINARY/GYNECOLOGICAL Hx Genitourinary Disorders: No - PSYCHIATRIC Hx Substance Use: No - SURGICAL HISTORY Hx Surgeries: Yes Other/Comment: Right 3 digits amputation foot - ANESTHESIA Hx Anesthesia: No Hx Anesthesia Reactions: No Hx Malignant Hyperthermia: No Meds Allergies/Adverse Reactions: Allergies Allergy/AdvReac Type Severity Reaction Status Date / Time No Known Allergies Allergy Verified 10/12/16 12:14 - Medications Medications: Current Medications Acetaminophen (Tylenol 325mg Tab) 650 mg PO Q6 PRN PRN Reason: Fever >100.4 F Aspirin (Aspirin Chewable) 81 mg PO DAILY [facility] Carvedilol (Coreg) 3.125 mg PO BID [facility] Enoxaparin Sodium (Lovenox) 40 mg SC DAILY [facility] Famotidine (Pepcid) 20 mg PO DAILY [facility] Sodium Chloride (Sodium Chloride 0.9%) 1,000 mls @ 100 mls/hr IV .Q10H [facility] Last Admin: 10/25/17 16:57 Dose: 100 mls/hr Sodium Chloride (Sodium Chloride 0.9%) 1,000 mls @ 100 mls/hr IV .Q10H [facility] Vancomycin HCl 1 gm/ Sodium (Chloride) 250 mls @ 166.7 mls/hr IVPB Q12H [facility] PRN Reason: Protocol Piperacillin Sod/Tazobactam Sod (Zosyn 3.375 Gm Iv Premix) 3.375 gm in 50 mls @ 100 mls/hr IVPB Q6H [facility] Ibuprofen (Motrin Tab) 600 mg PO TID [facility] Insulin Glargine (Lantus) 24 unit SC HS [facility] Insulin Human Regular (Novolin R) 0 unit SC ACHS [facility] PRN Reason: Protocol Rosuvastatin Calcium (Crestor) 5 mg PO HS [facility] Physical Exam - Constitutional Appears: Well, Non-toxic, No Acute Distress - Extremities Exam Additional comments: Bilateral lower extremity focused. VASC: Bilateral pedal pulses graded 1/4. Left forefoot pitting edema with localized callor. LEft dorsal midfoot pedal hair growth noted. [employer]JUD[employer]IST to all 7 digits bilaterally is intact and less then 3 seconds. DERM: Left- dorsal full thickness ulceration measuring 0.6x 0.8 cm with a mixed fibro-granular base. Positive [id number] at level of 2nd digit proximal interphalangel joint. Periwound non streaking, non-blanchable erythema extending to middle column of forefoot. Localized calor to area of rubor. No mal -odor, active serous drainage noted, absent purulence. Inter-digital mid maceration with lateral 2nd dit skin sloughing, likely secondary to de-roofed bulla. Nails are normotrophic to all 5 digits. Right- Anterior partial thickness ulceration noted to anterior ridge of tibial at midly 1/3 of tibia measuring 1.6 x 0.8 cm with a fibrotic wound base. No sheryl-wound erythema, no mal-odor, no acute signs if onfection. No underming or raised margins. 3-5th ray amputation site noted with surgical site flap intact, however hyperpigmented scaling plaque noted, absent irrecual margins. Stably adhered to dermal base, absent acute signs of infection. NEURO: Protective sensation greatly diminished to forefoot and midfoot. 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 MMT reveals pedal and lower leg group muscle strength is graded 5/5. - Neurological Exam Neurological exam: Alert, Oriented x3 - Psychiatric Exam Psychiatric exam: Normal Affect, Normal Mood Results - Vital Signs Recent Vital Signs: Last Vital Signs Temp 97.5 F L 10/25/17 19:27 Pulse 94 H 10/25/17 19:27 Resp 20 10/25/17 19:27 BP 146/89 10/25/17 19:27 Pulse Ox 97 10/25/17 19:27 - Labs Result Diagrams: 10/25/17 17:11 10/25/17 16:43 Labs: Laboratory Results - last 24 hr 10/25/17 10/25/17 10/25/17 16:08 16:43 17:11 WBC 7.6 RBC 5.21 Hgb 15.4 Hct 45.2 MCV 86.8 D MCH 29.5 MCHC 34.0 RDW 13.9 Plt Count 237 MPV 9.0 Neut % (Auto) 70.2 Lymph % (Auto) 21.4 [place] % (Auto) 5.7 Eos % (Auto) 1.2 Baso % (Auto) 1.5 Neut # (Auto) 5.3 Lymph # (Auto) 1.6 [place] # (Auto) 0.4 Eos # (Auto) 0.1 Baso # (Auto) 0.1 Sodium 133 Potassium 5.1 Chloride 96 L Carbon Dioxide 25 Anion Gap 17 BUN 20 Creatinine 0.6 L Est GFR ( Amer) > 60 Est GFR (Non-Af Amer) > 60 POC Glucose (mg/dL) 390 H Random Glucose 422 H* Calcium 8.9 Total Bilirubin 0.9 AST 28 ALT < 6 L D Alkaline Phosphatase 140 H Total Protein 8.2 Albumin 3.7 Globulin 4.5 H Albumin/Globulin Ratio 0.8 L Serum Ketones Small Assessment & Plan - Assessment and Plan (Free Text) Assessment: 47 year old male with left 2nd digit Mancera grade 3 ulceration, with accompanying cellulits. Plan: Pt seen and evaluated. Discussed with attending Dr. Soler who endorsed the following plan. Chart, labs, and vitals reviewed. afebrile, WBC=7.6. Left foot x-rays, right foot, x-rays, and right tib-fib x-rays ordered. Pending read, prelim resulst show no soft tissue emphysema. Left foot MRI-ordered. Wound culture results-pending. ID consult - placed, recommendations appreciated. Left 2nd digit cellulitis and chronic wound, surgical intervention indicated. Plan for potential 2nd digit arthroplasty with resection of non-viable adjacent bone. - Medical clearance requested. -Cardiac clearance requested. Cleansed wound sites with sterile saline, Dressed with Betadine, and DSD. Podiatry will continue to follow this pt while inhouse. - Date & Time Date: 10/25/17 Time: 16:40
[2017-10-25] MEDS: (Novolin R) Insulin Human Regular 100 units/ml vial SC SCH (21:28)
[2017-10-25] MEDS ORDERED: (Lantus) Insulin Glargine, Recombinant SC SCH (22:00)
[2017-10-25] MEDS: Piperacill/Tazo 3.375gm in Dex 3.375 GM/50 ML BAG IVPB SCH (23:43)
[2017-10-26] MEDS: Piperacill/Tazo 3.375gm in Dex 3.375 GM/50 ML BAG IVPB SCH ×3 (04:41→16:31)
[2017-10-26] MEDS: Sodium Chloride 0.9% 1,000 ML IV SCH ×3 (04:42→22:08)
[2017-10-26] MEDS: Vancomycin 1 gm/NS 200 ml 1 GM/200 ML BAG IVPB SCH ×2 (06:10→18:05)
[2017-10-26 06:24] LABS: BASO # 0.1 K/uL (0.0-0.2); BASO % 1.2 % (0.0-2.0); EOS # 0.1 K/uL (0.0-0.7); EOS % 1.9 % (0.0-4.0); HEMOGLOBIN 13.5 g/dL (12.0-18.0); LYMPH # 1.6 K/uL (1.0-4.3); LYMPH % 24.2 % (20.0-40.0); MEAN CELL VOLUME 87.9 fL (80.0-94.0); MEAN CORPUSCULAR HEMOGLOBIN 30.2 pg (27.0-31.0); MEAN CORPUSCULAR HGB CONC 34.4 g/dL (33.0-37.0); MEAN PLATELET VOLUME 9.1 fL (7.2-11.7); MONO # 0.4 K/uL (0.0-0.8); MONO % 6.7 % (0.0-10.0); NEUT # 4.2 K/uL (1.8-7.0); NRBC % 0.1 % (0.0-2.0); RBC 4.48 Mil/uL (4.40-5.90); RED CELL DISTRIBUTION WIDTH 13.5 % (11.5-14.5); WHITE BLOOD COUNT 6.4 K/uL (4.8-10.8)
[2017-10-26 06:29] LABS: ALB/GLOB RATIO 0.8 (1.0-2.1); ALBUMIN 2.9 g/dL (3.5-5.0); ALT/SGPT 13 U/L (21-72); AST/SGOT 10 U/L (17-59); BLOOD UREA NITROGEN 16 mg/dL (9-20); CALCIUM 8.2 mg/dl (8.6-10.4); GFR AFRICAN-AMERICAN > 60; GFR NON-AFRICAN AMERICAN > 60; HDL CHOLESTEROL 26 mg/dL (30-70)
[2017-10-26 06:30] LABS: PROTHROMBIN TIME 10.9 SECONDS (9.7-12.2)
[2017-10-26 06:39] LABS: LDL CHOLESTEROL 105 mg/dL (0-129)
[2017-10-26] MEDS: (Novolin R) Insulin Human Regular 100 units/ml vial SC SCH ×5 (08:30→22:06)
[2017-10-26] MEDS: Enoxaparin 40 mg Syringe SC SCH (09:35)
--- NOTE | 2017-10-26 09:52 | CP.PCM.PN ---
<Ivonne Gómez - Last Filed: 10/26/17 15:12> Subjective - Date & Time of Evaluation Date of Evaluation: 10/26/17 Time of Evaluation: 09:49 - Subjective Subjective: Patient seen and examined at bedside. Patient resting comfortably in bed with no new complaints at this time. Patient says he is having no pain where his wounds are. I asked the patient how he got these wounds and he said the one on his toe was a corn that he tried to remove, and the one on his leg was from hitting it on something. He says the one on his toe became red and swollen after a while but denies fever and chills. Patient denies any chest pain or SOB however he does make a point to let me know he has an AICD. Patient also denies abdominal pain, n/v/d/c, and lower extremity edema. Objective - Vital Signs/Intake and Output Vital Signs (last 24 hours): Temp Pulse Resp BP Pulse Ox 97.6 F 82 20 156/92 H 97 10/26/17 07:00 10/26/17 07:00 10/26/17 07:00 10/26/17 07:00 10/26/17 07:00 - Medications Medications: Current Medications Acetaminophen (Tylenol 325mg Tab) 650 mg PO Q6 PRN PRN Reason: Fever >100.4 F Aspirin (Aspirin Chewable) 81 mg PO DAILY [facility] Last Admin: 10/26/17 09:36 Dose: 81 mg Carvedilol (Coreg) 3.125 mg PO BID [facility] Last Admin: 10/26/17 09:36 Dose: 3.125 mg Enoxaparin Sodium (Lovenox) 40 mg SC DAILY [facility] Last Admin: 10/26/17 09:35 Dose: 40 mg Famotidine (Pepcid) 20 mg PO DAILY [facility] Last Admin: 10/26/17 09:36 Dose: 20 mg Sodium Chloride (Sodium Chloride 0.9%) 1,000 mls @ 100 mls/hr IV .Q10H [facility] Last Admin: 10/26/17 04:42 Dose: 100 mls/hr Piperacillin Sod/Tazobactam Sod (Zosyn 3.375 Gm Iv Premix) 3.375 gm in 50 mls @ 100 mls/hr IVPB Q6H [facility] Last Admin: 10/26/17 04:41 Dose: 100 mls/hr Vancomycin/Sodium Chloride (Vancomycin 1 Gm/Ns 200 Ml) 1 gm in 200 mls @ 133.333 mls/hr IVPB Q12H [facility] PRN Reason: Protocol Last Admin: 10/26/17 06:10 Dose: 133.333 mls/hr Ibuprofen (Motrin Tab) 600 mg PO TID [facility] Last Admin: 10/26/17 09:36 Dose: Not Given Insulin Glargine (Lantus) 24 unit SC HS [facility] Last Admin: 10/25/17 21:31 Dose: 24 units Insulin Human Regular (Novolin R) 0 unit SC ACHS [facility] PRN Reason: Protocol Last Admin: 10/26/17 09:34 Dose: 4 unit Rosuvastatin Calcium (Crestor) 5 mg PO HS [facility] Last Admin: 10/25/17 21:28 Dose: 5 mg - Labs Labs: 10/26/17 06:09 10/26/17 06:09 PT 10.9 SECONDS (9.7-12.2) 10/26/17 06:09 INR 1.0 10/26/17 06:09 APTT 29 SECONDS (21-34) 10/26/17 06:09 - Constitutional Appears: Non-toxic, No Acute Distress - Head Exam Head Exam: ATRAUMATIC, NORMAL INSPECTION, NORMOCEPHALIC - Eye Exam Eye Exam: EOMI, Normal appearance, PERRL - ENT Exam ENT Exam: Mucous Membranes Moist - Respiratory Exam Respiratory Exam: Clear to Ausculation Bilateral, NORMAL BREATHING PATTERN. absent: Rales, Rhonchi, Wheezes - Cardiovascular Exam Cardiovascular Exam: RRR, +S1, +S2 - GI/Abdominal Exam GI & Abdominal Exam: Soft, Normal Bowel Sounds. absent: Distended, Tenderness - Extremities Exam Extremities Exam: absent: Calf Tenderness, Pedal Edema Additional comments: LLE: Ulceration of dorsal surface of the left 2nd digit approximately 1 cm x .75 cm with surrounding erythema spreading to distal forefoot; no purulent drainage or mal odor RLE: ulceration of anterior tibia approximately 1.5 cm x 1 cm without surrounding erythema, purulent drainage, or mal odor - Neurological Exam Neurological Exam: Alert, Awake, Oriented x3 - Psychiatric Exam Psychiatric exam: Normal Affect, Normal Mood - Skin Skin Exam: Dry, Intact, Normal Color, Warm Assessment and Plan - Assessment and Plan (Free Text) Plan: Disposition: Patient is low-moderate risk for low risk procedure given his cardiac history and uncontrolled DM. Diabetic foot ulcer * Dr. Nicholas (ID) consulted, help appreciated * Dr. Soler (podiatry) consulted, help appreciated * Plan for possibly going to the OR * Dr. Valencia (cardiology) consulted for pre op risk stratification, help appreciated * Wound cultures: Coag neg staph * f/u blood cultures Imaging * Left Foot XR: Interval soft tissue and bone loss at the distal 2nd digit consider infectious or inflammatory process versus postoperative change or posttraumatic etiology. Osteomyelitis is not excluded as discussed above. Similar pattern is seen affecting the distal most segment of the left 5th metatarsal bone and further clinical correlation is advised. Diffuse dorsal foot soft tissue edema as well as at least at the forefoot and midfoot plantar soft tissues as well. * Right Foot XR: Status post interval therefore the 5th transmetatarsal amputation. Mild forefoot and ankle soft tissue edema suggested as discussed above. No overt radiographic sign of osteomyelitis at this time. MRI can be performed for further characterization as clinically warranted as it is more sensitive for osteomyelitis radiography. Degenerative changes 1st and 2nd metatarsophalangeal joints and 2nd digit. * Right Tib/Fib: No radiographic evidence for bony erosion or destruction to suggest osteomyelitis. * CT left foot: 1. At the level of the head of the 2nd proximal phalanx best seen on the sagittal series 602, image 36, there is some mild cortical irregularity at the dorsal aspect of the bony cortex. This is nonspecific and underlying osteomyelitis at this level cannot be excluded. Correlation with MRI and or 3 phase bone scan would be helpful for further evaluation of this region. 2. Cortical irregularity with dysplastic changes noted at the head of the 5th metatarsal bone. This may be the sequelae of chronic postsurgical and/ or chronic osteomyelitic changes and or additional etiology. Superimposed acute osteomyelitic changes cannot entirely be excluded. Clinical correlation. If there is concern for acute osteomyelitis at this level, correlation with MRI and or three-phase bone scan may be helpful if indicated. 3. Bipartite lateral sesamoid bone. 4. Extensive vascular calcifications. 5. Subcutaneous soft tissue swelling and edema seen throughout the visualized foot which may represent underlying cellulitis. Clinical correlation. 6. Mild cortical irregularity along the posterior cortex of the distal tibia and distal fibula, likely chronic. Clinical correlation. Meds: * Zosyn 3.375 g Q6H * Vanc 1 g Q12H * Tylenol prn for fever * Santyl Uncontrolled diabetes * Dr. Mckenzie (Endocrine) consulted, help appreciated * HgbA1c 14.5 * Lipid panel: Trig 118, Chol 154, LDL 105, HDL 26 * TSH: 0.67 * Accuchecks ACHS Meds: * Novolin 70/30 24 units ACB and 16 units ACD * Novolin N 30 units SC HS * Sliding scale insulin * Hold metformin * Crestor 5 mg HS * NS 100 cc CHF with biventricular ICD * Coreg 3.125 mg BID * ASA 81 mg QD Prophylaxis * Lovenox * GI prophylaxis not indicated <Rohini Canales - Last Filed: 10/28/17 20:28> Objective - Vital Signs/Intake and Output Vital Signs (last 24 hours): Temp Pulse Resp BP Pulse Ox 97.6 F 79 20 148/96 H 100 10/28/17 15:00 10/28/17 15:00 10/28/17 15:00 10/28/17 15:00 10/28/17 15:00 - Medications Medications: Current Medications Acetaminophen (Tylenol 325mg Tab) 650 mg PO Q6 PRN PRN Reason: Fever >100.4 F Aspirin (Aspirin Chewable) 81 mg PO DAILY [facility] Last Admin: 10/27/17 09:48 Dose: 81 mg Carvedilol (Coreg) 3.125 mg PO BID [facility] Last Admin: 10/28/17 17:45 Dose: Not Given Collagenase (Santyl) 1 gm TOP DAILY [facility] Last Admin: 10/28/17 09:25 Dose: 1 gm Enoxaparin Sodium (Lovenox) 40 mg SC DAILY [facility] Last Admin: 10/27/17 09:49 Dose: 40 mg Sodium Chloride (Sodium Chloride 0.9%) 1,000 mls @ 100 mls/hr IV .Q10H [facility] Last Admin: 10/28/17 16:15 Dose: Not Given Piperacillin Sod/Tazobactam Sod (Zosyn 3.375 Gm Iv Premix) 3.375 gm in 50 mls @ 100 mls/hr IVPB Q6H [facility] Last Admin: 10/28/17 18:59 Dose: 100 mls/hr Vancomycin/Sodium Chloride (Vancomycin 1 Gm/Ns 200 Ml) 1 gm in 200 mls @ 133.333 mls/hr IVPB Q12H [facility] PRN Reason: Protocol Last Admin: 10/28/17 19:00 Dose: 133.333 mls/hr Dextrose/Sodium Chloride (Dextrose 5%/0.45% Ns 1000 Ml) 1,000 mls @ 100 mls/hr IV .Q10H [facility] Last Admin: 10/28/17 17:49 Dose: Not Given Insulin Human Isoph/Insulin Regular (Novolin 70/30 (70/30 Units/Ml) 10 Ml) 24 units SC ACB [facility] Last Admin: 10/28/17 08:03 Dose: 24 units Insulin Human Isoph/Insulin Regular (Novolin 70/30 (70/30 Units/Ml) 10 Ml) 16 units SC ACD [facility] Last Admin: 10/28/17 17:45 Dose: Not Given Insulin Human NPH (Novolin N) 30 unit SC HS [facility] Last Admin: 10/27/17 22:00 Dose: Not Given Insulin Human Regular (Novolin R) 0 unit SC ACHS [facility] PRN Reason: Protocol Last Admin: 10/28/17 16:30 Dose: Not Given Losartan Potassium (Cozaar) 50 mg PO DAILY [facility] Last Admin: 10/28/17 09:24 Dose: 50 mg Rosuvastatin Calcium (Crestor) 5 mg PO HS [facility] Last Admin: 10/27/17 21:20 Dose: 5 mg Spironolactone (Aldactone) 25 mg PO DAILY [facility] Last Admin: 10/28/17 09:24 Dose: 25 mg - Labs Labs: 10/28/17 07:26 10/28/17 07:26 PT 10.9 SECONDS (9.7-12.2) 10/26/17 06:09 INR 1.0 10/26/17 06:09 APTT 29 SECONDS (21-34) 10/26/17 06:09 Attending/Attestation - Attestation I have personally seen and examined this patient.: Yes I have fully participated in the care of the patient.: Yes I have reviewed all pertinent clinical information, including history, physical exam and plan: Yes Notes (Text): This is a 47 year old male with past medical history of uncontrolled diabetes, hx of diabetic foot ulcer, HTN, CHF with biventricular ICD placement is admitted for diabetic foot ulcer of the left 2nd toe. wound examined denies sob,no leg edema 1.Diabetic foot ulcer 2. Uncontrolled diabetes 3.Noncompliance with medication and follow up 4.chronic Severe systolic heart failure with biventricular ICD Patient was seen and examined by me ,Discussed with the resident.continue antibiotics. 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 I agree with documentation of the resident's assessment and the plan
[2017-10-26] MEDS ORDERED: Pantoprazole 20 mg EC Tab PO SCH (10:00)
[2017-10-26] MEDS ORDERED: Pantoprazole 40 mg EC Tab PO SCH (10:00)
--- NOTE | 2017-10-26 10:35 | RAD ---
PROCEDURE: Left Foot Radiographs. HISTORY: 2nd toe with ulcer, swollen COMPARISON: Left foot radiographs 07/06/2015. FINDINGS: BONES: In the interval, there is loss of the soft tissue at the distal 2nd digit with accompanying loss of the tuft of the distal phalanx 2nd digit. Consider postoperative or posttraumatic etiology although infectious etiologies including osteomyelitis are included in the differential diagnosis. Loss of the distal epiphysis and metaphysis of the 5th metatarsal bone is also seen in the interval with the same differential diagnosis applying here. No acute fracture identified. JOINTS: No subluxation or dislocation although degenerative changes are advanced primarily throughout the interphalangeal joints also the 1st metatarsal phalangeal joint. SOFT TISSUES: Vascular calcifications are identified in dorsal and plantar foot soft tissues as well as anterior and posterior ankle soft tissues and mild soft tissue edema is seen throughout the dorsal foot diffusely and likely at least at the plantar forefoot to midfoot soft tissues as well. No emphysema soft tissue change or definite retained radiodense foreign body appreciated. OTHER FINDINGS: None. IMPRESSION: Interval soft tissue and bone loss at the distal 2nd digit consider infectious or inflammatory process versus postoperative change or posttraumatic etiology. Osteomyelitis is not excluded as discussed above. Similar pattern is seen affecting the distal most segment of the left 5th metatarsal bone and further clinical correlation is advised. Diffuse dorsal foot soft tissue edema as well as at least at the forefoot and midfoot plantar soft tissues as well.
--- NOTE | 2017-10-26 10:40 | RAD ---
PROCEDURE: Right Foot Radiographs. HISTORY: prior toe amputations with infection COMPARISON: Right foot radiographs 09/16/2012. FINDINGS: BONES: Interval transmetatarsal amputation is seen at the left 3rd 4th 5th metatarsal bones. No overt lytic or blastic bony changes otherwise evident to suggest osteomyelitis at this time. MRI is more sensitive. Valgus deformities of the 1st and 2nd metatarsal joints is identified as well as the proximal interphalangeal joint 2nd digit with degenerative changes seen throughout the residual interphalangeal to this 1st and 2nd digits as well as the 1st metatarsophalangeal joint. No subluxation or dislocation. SOFT TISSUES: Questionable plantar forefoot soft tissue edema without emphysematous change or definite retained radiodense foreign body appreciated. Moderate edema is also seen in the anterior ankle and distal leg soft tissues with vascular calcifications identified throughout soft tissues as well. OTHER FINDINGS: None. IMPRESSION: Status post interval therefore the 5th transmetatarsal amputation. Mild forefoot and ankle soft tissue edema suggested as discussed above. No overt radiographic sign of osteomyelitis at this time. MRI can be performed for further characterization as clinically warranted as it is more sensitive for osteomyelitis radiography. Degenerative changes 1st and 2nd metatarsophalangeal joints and 2nd digit.
--- NOTE | 2017-10-26 11:14 | CP.PCM.CON ---
<Janay Lancaster - Last Filed: 10/26/17 14:50> History of Present Illness - History of Present Illness History of Present Illness: 47 year old male male with past medical history of uncontrolled diabetes (HgA1c of 14.5 as of 10/22/2017), dyslipidemia, severe left ventricular systolic dysfunction (as reported of on cardiac catheterization on 10/2016), chronic lower extremity infections with history of amputations, status post biventricular pacemaker, and hypertension who presents to hospital with abscess of left 2nd toe that began about 1 month ago. He is currently on IV antibiotics for this with plan to perform left foot surgery by podiatry. Cardiology was consulted for cardiac assessment for a patient undergoing a non-cardiac surgery. The patient reports developing bilateral calf pain with walking only one flight of stairs. He denies smoking. He denies experiencing any chest pain, dyspnea, or palpitations. He is pending interpretation of lower extremity angiogram and echocardiogram. EKG shows ventricular paced rhythm. Otherwise, patient denies nausea, vomiting, or exertional chest pain. He denies experiencing a RI in his life. Past Medical History: Hypertension, dyslipidemia, reported Left ventricular systolic dysfunction, Sx: right 3 toes amputation, appendicitis, left 5th toe partial amputation, AICD placement NKDA Meds: no home meds Social; Denies tobacco, drinks beer socially, denies illicit drug use Review of Systems - Review of Systems All systems: reviewed and no additional remarkable complaints except (as per HPI ) Past Patient History - Tetanus Immunizations Tetanus Immunization: Unknown - Past Medical History & Family History Past Medical History?: Yes - Past Social History Smoking Status: Never Smoked Chewing Tobacco Use: No Cigar Use: No Alcohol: None Drugs: Denies - CARDIAC Hx Hypertension: Yes - PULMONARY Hx Respiratory Disorders: No - NEUROLOGICAL Hx Neurological Disorder: No - HEENT Hx HEENT Problems: No - RENAL Hx Chronic Kidney Disease: No - ENDOCRINE/METABOLIC Hx Diabetes Mellitus Type 1: Yes - HEMATOLOGICAL/ONCOLOGICAL Hx Blood Disorders: No - INTEGUMENTARY Hx Dermatological Problems: No - MUSCULOSKELETAL/RHEUMATOLOGICAL Hx Musculoskeletal Disorders: No Hx Falls: No - GASTROINTESTINAL Hx Gastrointestinal Disorders: No - GENITOURINARY/GYNECOLOGICAL Hx Genitourinary Disorders: No - PSYCHIATRIC Hx Substance Use: No - SURGICAL HISTORY Hx Surgeries: Yes Other/Comment: Right 3 digits amputation foot - ANESTHESIA Hx Anesthesia: No Hx Anesthesia Reactions: No Hx Malignant Hyperthermia: No Meds Allergies/Adverse Reactions: Allergies Allergy/AdvReac Type Severity Reaction Status Date / Time No Known Allergies Allergy Verified 10/12/16 12:14 - Medications Medications: Current Medications Acetaminophen (Tylenol 325mg Tab) 650 mg PO Q6 PRN PRN Reason: Fever >100.4 F Aspirin (Aspirin Chewable) 81 mg PO DAILY [facility] Last Admin: 10/26/17 09:36 Dose: 81 mg Carvedilol (Coreg) 3.125 mg PO BID [facility] Last Admin: 10/26/17 09:36 Dose: 3.125 mg Enoxaparin Sodium (Lovenox) 40 mg SC DAILY [facility] Last Admin: 10/26/17 09:35 Dose: 40 mg Famotidine (Pepcid) 20 mg PO DAILY [facility] Last Admin: 10/26/17 09:36 Dose: 20 mg Sodium Chloride (Sodium Chloride 0.9%) 1,000 mls @ 100 mls/hr IV .Q10H [facility] Last Admin: 10/26/17 04:42 Dose: 100 mls/hr Piperacillin Sod/Tazobactam Sod (Zosyn 3.375 Gm Iv Premix) 3.375 gm in 50 mls @ 100 mls/hr IVPB Q6H [facility] Last Admin: 10/26/17 04:41 Dose: 100 mls/hr Vancomycin/Sodium Chloride (Vancomycin 1 Gm/Ns 200 Ml) 1 gm in 200 mls @ 133.333 mls/hr IVPB Q12H [facility] PRN Reason: Protocol Last Admin: 10/26/17 06:10 Dose: 133.333 mls/hr Ibuprofen (Motrin Tab) 600 mg PO TID [facility] Last Admin: 10/26/17 09:36 Dose: Not Given Insulin Glargine (Lantus) 24 unit SC HS [facility] Last Admin: 10/25/17 21:31 Dose: 24 units Insulin Human Regular (Novolin R) 0 unit SC ACHS [facility] PRN Reason: Protocol Last Admin: 10/26/17 09:34 Dose: 4 unit Rosuvastatin Calcium (Crestor) 5 mg PO HS [facility] Last Admin: 10/25/17 21:28 Dose: 5 mg Physical Exam - Constitutional Appears: Non-toxic, No Acute Distress - Head Exam Head Exam: ATRAUMATIC, NORMOCEPHALIC - Eye Exam Eye Exam: EOMI, Normal appearance - ENT Exam ENT Exam: Mucous Membranes Moist - Neck Exam Neck exam: Positive for: Normal Inspection - Respiratory Exam Respiratory Exam: Clear to Auscultation Bilateral, NORMAL BREATHING PATTERN. absent: Accessory Muscle Use - Cardiovascular Exam Cardiovascular Exam: RRR, +S1, +S2 - GI/Abdominal Exam GI & Abdominal Exam: Normal Bowel Sounds, Soft - Extremities Exam Additional comments: multiple unhealing scabs/wounds - Neurological Exam Neurological exam: Alert, Oriented x3 Additional comments: unable to discriminate between soft and sharp touch on bilateral lower extremites Results - Vital Signs Recent Vital Signs: Last Vital Signs Temp 97.6 F 10/26/17 07:00 Pulse 82 10/26/17 07:00 Resp 20 10/26/17 07:00 BP 156/92 H 10/26/17 07:00 Pulse Ox 97 10/26/17 07:00 - Labs Result Diagrams: 10/26/17 06:09 10/26/17 06:09 Labs: Laboratory Results - last 24 hr 10/25/17 10/25/17 10/25/17 16:08 16:43 17:11 WBC 7.6 RBC 5.21 Hgb 15.4 Hct 45.2 MCV 86.8 D MCH 29.5 MCHC 34.0 RDW 13.9 Plt Count 237 MPV 9.0 Neut % (Auto) 70.2 Lymph % (Auto) 21.4 Hamlin % (Auto) 5.7 Eos % (Auto) 1.2 Baso % (Auto) 1.5 Neut # (Auto) 5.3 Lymph # (Auto) 1.6 Hamlin # (Auto) 0.4 Eos # (Auto) 0.1 Baso # (Auto) 0.1 PT INR APTT Sodium 133 Potassium 5.1 Chloride 96 L Carbon Dioxide 25 Anion Gap 17 BUN 20 Creatinine 0.6 L Est GFR ( Amer) > 60 Est GFR (Non-Af Amer) > 60 POC Glucose (mg/dL) 390 H Random Glucose 422 H* Hemoglobin A1c Calcium 8.9 Total Bilirubin 0.9 AST 28 ALT < 6 L D Alkaline Phosphatase 140 H Total Protein 8.2 Albumin 3.7 Globulin 4.5 H Albumin/Globulin Ratio 0.8 L Triglycerides Cholesterol LDL Cholesterol Direct HDL Cholesterol TSH 3rd Generation Serum Ketones Small 04/23/18 04/24/18 04/24/18 21:13 06:09 06:09 WBC 6.4 RBC 4.48 Hgb 13.5 Hct 39.4 MCV 87.9 MCH 30.2 MCHC 34.4 RDW 13.5 Plt Count 203 MPV 9.1 Neut % (Auto) 66.0 Lymph % (Auto) 24.2 Hamlin % (Auto) 6.7 Eos % (Auto) 1.9 Baso % (Auto) 1.2 Neut # (Auto) 4.2 Lymph # (Auto) 1.6 Hamlin # (Auto) 0.4 Eos # (Auto) 0.1 Baso # (Auto) 0.1 PT 10.9 INR 1.0 APTT 29 Sodium Potassium Chloride Carbon Dioxide Anion Gap BUN Creatinine Est GFR ( Amer) Est GFR (Non-Af Amer) POC Glucose (mg/dL) 254 H Random Glucose Hemoglobin A1c Calcium Total Bilirubin AST ALT Alkaline Phosphatase Total Protein Albumin Globulin Albumin/Globulin Ratio Triglycerides Cholesterol LDL Cholesterol Direct HDL Cholesterol TSH 3rd Generation Serum Ketones 10/26/17 10/26/17 10/26/17 06:09 06:09 07:12 WBC RBC Hgb Hct MCV MCH MCHC RDW Plt Count MPV Neut % (Auto) Lymph % (Auto) Hamlin % (Auto) Eos % (Auto) Baso % (Auto) Neut # (Auto) Lymph # (Auto) Hamlin # (Auto) Eos # (Auto) Baso # (Auto) PT INR APTT Sodium 139 Potassium 4.0 Chloride 101 Carbon Dioxide 27 Anion Gap 15 BUN 16 Creatinine 0.7 L Est GFR ( Amer) > 60 Est GFR (Non-Af Amer) > 60 POC Glucose (mg/dL) 261 H Random Glucose 305 H Hemoglobin A1c 14.5 H Calcium 8.2 L Total Bilirubin 0.5 AST 10 L D ALT 13 L D Alkaline Phosphatase 91 Total Protein 6.6 Albumin 2.9 L D Globulin 3.6 Albumin/Globulin Ratio 0.8 L Triglycerides 118 D Cholesterol 154 LDL Cholesterol Direct 105 HDL Cholesterol 26 L TSH 3rd Generation 0.67 Serum Ketones Assessment & Plan - Assessment and Plan (Free Text) Assessment: 47 year old male with a past medical history of uncontrolled DM, non- ischemic cardiomyopathy with severe left ventricular systolic dysfunction, s/p biventricular pacemaker, with podiatry planning for potential 2nd digit arthroplasty with resection of non-viable adjacent bone who cardiology was consulted for cardiac risk stratification for the aforementioned, non-cardiac surgery. Plan: According to the 2014 AHA/ACC guidelines on preoperative risk assessment in a patient undergoing a noncardiac sugery, this patient is considered low risk for a low risk procedure. Case discussed with Dr. Valencia - Date & Time Date: 10/26/17 Time: 11:45 <Chet Vlaencia - Last Filed: 10/27/17 07:36> Meds - Medications Medications: Current Medications Acetaminophen (Tylenol 325mg Tab) 650 mg PO Q6 PRN PRN Reason: Fever >100.4 F Aspirin (Aspirin Chewable) 81 mg PO DAILY [facility] Last Admin: 10/26/17 09:36 Dose: 81 mg Carvedilol (Coreg) 3.125 mg PO BID [facility] Last Admin: 10/26/17 18:05 Dose: 3.125 mg Collagenase (Santyl) 1 gm TOP DAILY [facility] Enoxaparin Sodium (Lovenox) 40 mg SC DAILY [facility] Last Admin: 10/26/17 09:35 Dose: 40 mg Sodium Chloride (Sodium Chloride 0.9%) 1,000 mls @ 100 mls/hr IV .Q10H [facility] Last Admin: 10/27/17 01:23 Dose: Not Given Piperacillin Sod/Tazobactam Sod (Zosyn 3.375 Gm Iv Premix) 3.375 gm in 50 mls @ 100 mls/hr IVPB Q6H [facility] Last Admin: 10/27/17 04:46 Dose: 100 mls/hr Vancomycin/Sodium Chloride (Vancomycin 1 Gm/Ns 200 Ml) 1 gm in 200 mls @ 133.333 mls/hr IVPB Q12H [facility] PRN Reason: Protocol Last Admin: 10/27/17 06:20 Dose: 133.333 mls/hr Insulin Human Isoph/Insulin Regular (Novolin 70/30 (70/30 Units/Ml) 10 Ml) 24 units SC ACB [facility] Insulin Human Isoph/Insulin Regular (Novolin 70/30 (70/30 Units/Ml) 10 Ml) 16 units SC ACD [facility] Last Admin: 10/26/17 16:31 Dose: 16 units Insulin Human NPH (Novolin N) 30 unit SC HS [facility] Last Admin: 10/26/17 22:05 Dose: 30 unit Insulin Human Regular (Novolin R) 0 unit SC ACHS [facility] PRN Reason: Protocol Last Admin: 10/26/17 22:06 Dose: Not Given Rosuvastatin Calcium (Crestor) 5 mg PO HS [facility] Last Admin: 10/26/17 22:05 Dose: 5 mg Results - Vital Signs Recent Vital Signs: Last Vital Signs Temp 97.5 F L 10/27/17 00:00 Pulse 76 10/27/17 00:00 Resp 20 10/27/17 00:00 BP 111/74 10/27/17 00:00 Pulse Ox 97 10/27/17 00:00 - Labs Result Diagrams: 10/26/17 06:09 10/26/17 06:09 Labs: Laboratory Results - last 24 hr 10/26/17 10/26/17 10/26/17 06:09 07:12 11:25 POC Glucose (mg/dL) 261 H 354 H Hemoglobin A1c 14.5 H 10/26/17 10/26/17 10/27/17 16:00 21:42 02:10 POC Glucose (mg/dL) 311 H 161 H 186 H Hemoglobin A1c 10/27/17 07:05 POC Glucose (mg/dL) 167 H Hemoglobin A1c Assessment & Plan (1) Preop cardiovascular exam Status: Acute (2) Abnormal EKG Status: Acute (3) Hypertension Status: Chronic (4) Systolic heart failure, chronic Status: Chronic Attending/Attestation - Attestation I have personally seen and examined this patient.: Yes I have fully participated in the care of the patient.: Yes I have reviewed all pertinent clinical information: Yes Notes (Text): 10/27/17 07:36 As per ACC/AHA guidelines he can proceed with planned surgery with low risk for perioperative cardiac event
[2017-10-26] MEDS ORDERED: (Novolin R) Insulin Human Regular 100 units/ml vial SC SCH (11:30)
--- NOTE | 2017-10-26 13:15 | CP.PCM.PN ---
Subjective - Date & Time of Evaluation Date of Evaluation: 10/26/17 Time of Evaluation: 11:10 - Subjective Subjective: Podiatry Progress Note- Dr. Soler 47 year old male is seen at bedside for left 2nd toe wound with accompanying cellulits and right leg ulcer. Pt reports improvement in swelling to the left leg. He denies any acute overnight events. No recent fever/chills, chest pain, nausea, vomiting, or diarrhea. Objective - Vital Signs/Intake and Output Vital Signs (last 24 hours): Temp Pulse Resp BP Pulse Ox 97.6 F 82 20 156/92 H 97 10/26/17 07:00 10/26/17 07:00 10/26/17 07:00 10/26/17 07:00 10/26/17 07:00 - Medications Medications: Current Medications Acetaminophen (Tylenol 325mg Tab) 650 mg PO Q6 PRN PRN Reason: Fever >100.4 F Aspirin (Aspirin Chewable) 81 mg PO DAILY [facility] Last Admin: 10/26/17 09:36 Dose: 81 mg Carvedilol (Coreg) 3.125 mg PO BID [facility] Last Admin: 10/26/17 09:36 Dose: 3.125 mg Enoxaparin Sodium (Lovenox) 40 mg SC DAILY [facility] Last Admin: 10/26/17 09:35 Dose: 40 mg Famotidine (Pepcid) 20 mg PO DAILY [facility] Last Admin: 10/26/17 09:36 Dose: 20 mg Sodium Chloride (Sodium Chloride 0.9%) 1,000 mls @ 100 mls/hr IV .Q10H [facility] Last Admin: 10/26/17 04:42 Dose: 100 mls/hr Piperacillin Sod/Tazobactam Sod (Zosyn 3.375 Gm Iv Premix) 3.375 gm in 50 mls @ 100 mls/hr IVPB Q6H [facility] Last Admin: 10/26/17 12:16 Dose: 100 mls/hr Vancomycin/Sodium Chloride (Vancomycin 1 Gm/Ns 200 Ml) 1 gm in 200 mls @ 133.333 mls/hr IVPB Q12H [facility] PRN Reason: Protocol Last Admin: 10/26/17 06:10 Dose: 133.333 mls/hr Insulin Glargine (Lantus) [address] [facility] Last Admin: 10/25/17 21:31 Dose: 24 units Insulin Human Regular (Novolin R) 0 unit SC ACHS [facility] PRN Reason: Protocol Last Admin: 10/26/17 12:16 Dose: 8 unit Rosuvastatin Calcium (Crestor) 5 mg PO HS [facility] Last Admin: 10/25/17 21:28 Dose: 5 mg - Labs Labs: 10/26/17 06:09 10/26/17 06:09 PT 10.9 SECONDS (9.7-12.2) 10/26/17 06:09 INR 1.0 10/26/17 06:09 APTT 29 SECONDS (21-34) 10/26/17 06:09 - Constitutional Appears: Well, Non-toxic, No Acute Distress - Extremities Exam Additional comments: Bilateral lower extremity focused. VASC: Bilateral pedal pulses graded 1/4. Left forefoot pitting edema with localized callor. LEft dorsal midfoot pedal hair growth noted. BLADE GROOVER to all 7 digits bilaterally is intact and less then 3 seconds. DERM: Left- dorsal full thickness ulceration measuring 0.6x 0.8 cm with a mixed fibro-granular base. Positive [id number] at level of 2nd digit proximal interphalangel joint. Periwound non streaking, non-blanchable erythema extending to middle column of forefoot. Localized calor to area of rubor. No mal -odor, active serous drainage noted, absent purulence. Inter-digital mid maceration with lateral 2nd dit skin sloughing, likely secondary to de-roofed bulla. Nails are normotrophic to all 5 digits. Right- Anterior partial thickness ulceration noted to anterior ridge of tibial at midly 1/3 of tibia measuring 1.6 x 0.8 cm with a fibrotic wound base. No sheryl-wound erythema, no mal-odor, no acute signs if onfection. No underming or raised margins. 3-5th ray amputation site noted with surgical site flap intact, however hyperpigmented scaling plaque noted, absent irrecual margins. Stably adhered to dermal base, absent acute signs of infection. NEURO: Protective sensation greatly diminished to forefoot and midfoot. 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 MMT reveals pedal and lower leg group muscle strength is graded 5/5. - Neurological Exam Neurological Exam: Alert, Awake, Oriented x3 - Psychiatric Exam Psychiatric exam: Normal Affect, Normal Mood Assessment and Plan - Assessment and Plan (Free Text) Assessment: 47 year old male with 1) left 2nd digit Mancera grade 3 ulceration, with accompanying cellulits. 2) Right leg ulceration, stable non-healing. Plan: Pt seen and evaluated. Discussed with attending Dr. Soler who endorsed the following plan. Chart, labs, and vitals reviewed. afebrile, WBC=6.4. Left foot x-rays, right foot, x-rays, and right tib-fib x-rays ordered. Pending read, prelim resulst show no soft tissue emphysema. Left foot MRI cancelled due to pt pacemaker. CT scan ordered- results show 2nd proximal phalynx head changes and atrophy. Wound culture results-Coagulase negative staphylococcus. ID consult - recommendations appreciated. Left 2nd digit cellulitis and chronic wound, surgical intervention indicated. Plan for potential 2nd digit arthroplasty with resection of non-viable adjacent bone. - Medical clearance requested. - Cardiac clearance requested. Coninue local area wound care for interm. Santyl ordered, to be applied to right leg ulceration. Cleansed wound sites with sterile saline. Dressed left foot with Betadine, and DSD. Right leg ulcer dressed with DSD. Podiatry will continue to follow this pt while inhouse.
--- NOTE | 2017-10-26 13:51 | CT ---
CT left foot History: Left 2nd digit osteomyelitis. Comparison: X-ray dated 10/25/2017 Technique: Multiple contiguous axial images were performed through the left foot without the use of intravenous contrast. Subsequently, sagittal and coronal reformatted images were obtained. This CT exam was performed using one or more of the following dose reduction techniques: Automated exposure control, adjustment of the mA and/or kV according to patient size, and/or use of iterative reconstruction technique. Findings: At the level of the head of the 2nd proximal phalanx best seen on the sagittal series 602, image 36, there is some mild cortical irregularity at the dorsal aspect of the bony cortex. This is nonspecific and underlying osteomyelitis at this level cannot be excluded. Correlation with MRI and or 3 phase bone scan would be helpful for further evaluation of this region. Cortical irregularity with dysplastic changes noted at the head of the 5th metatarsal bone. This may be the sequelae of chronic postsurgical and/or chronic osteomyelitic changes and or additional etiology. Superimposed acute osteomyelitic changes cannot entirely be excluded. Clinical correlation. If there is concern for acute osteomyelitis at this level, correlation with MRI and or three-phase bone scan may be helpful if indicated. Bipartite lateral sesamoid bone. Extensive vascular calcifications. Subcutaneous soft tissue swelling and edema seen throughout the visualized foot which may represent underlying cellulitis. Clinical correlation. Mild cortical irregularity along the posterior cortex of the distal tibia and distal fibula, likely chronic. Clinical correlation. Impression: 1. At the level of the head of the 2nd proximal phalanx best seen on the sagittal series 602, image 36, there is some mild cortical irregularity at the dorsal aspect of the bony cortex. This is nonspecific and underlying osteomyelitis at this level cannot be excluded. Correlation with MRI and or 3 phase bone scan would be helpful for further evaluation of this region. 2. Cortical irregularity with dysplastic changes noted at the head of the 5th metatarsal bone. This may be the sequelae of chronic postsurgical and/or chronic osteomyelitic changes and or additional etiology. Superimposed acute osteomyelitic changes cannot entirely be excluded. Clinical correlation. If there is concern for acute osteomyelitis at this level, correlation with MRI and or three-phase bone scan may be helpful if indicated. 3. Bipartite lateral sesamoid bone. 4. Extensive vascular calcifications. 5. Subcutaneous soft tissue swelling and edema seen throughout the visualized foot which may represent underlying cellulitis. Clinical correlation. 6. Mild cortical irregularity along the posterior cortex of the distal tibia and distal fibula, likely chronic. Clinical correlation.
--- NOTE | 2017-10-26 15:00 | CP.PCM.CON ---
Past Patient History - Tetanus Immunizations Tetanus Immunization: Unknown - Past Medical History & Family History Past Medical History?: Yes - Past Social History Smoking Status: Never Smoked Chewing Tobacco Use: No Cigar Use: No Alcohol: None Drugs: Denies - CARDIAC Hx Hypertension: Yes - PULMONARY Hx Respiratory Disorders: No - NEUROLOGICAL Hx Neurological Disorder: No - HEENT Hx HEENT Problems: No - RENAL Hx Chronic Kidney Disease: No - ENDOCRINE/METABOLIC Hx Diabetes Mellitus Type 1: Yes - HEMATOLOGICAL/ONCOLOGICAL Hx Blood Disorders: No - INTEGUMENTARY Hx Dermatological Problems: No - MUSCULOSKELETAL/RHEUMATOLOGICAL Hx Musculoskeletal Disorders: No Hx Falls: No - GASTROINTESTINAL Hx Gastrointestinal Disorders: No - GENITOURINARY/GYNECOLOGICAL Hx Genitourinary Disorders: No - PSYCHIATRIC Hx Substance Use: No - SURGICAL HISTORY Hx Surgeries: Yes Other/Comment: Right 3 digits amputation foot - ANESTHESIA Hx Anesthesia: No Hx Anesthesia Reactions: No Hx Malignant Hyperthermia: No Meds Allergies/Adverse Reactions: Allergies Allergy/AdvReac Type Severity Reaction Status Date / Time No Known Allergies Allergy Verified 10/12/16 12:14 - Medications Medications: Current Medications Acetaminophen (Tylenol 325mg Tab) 650 mg PO Q6 PRN PRN Reason: Fever >100.4 F Aspirin (Aspirin Chewable) 81 mg PO DAILY [facility] Last Admin: 10/26/17 09:36 Dose: 81 mg Carvedilol (Coreg) 3.125 mg PO BID [facility] Last Admin: 10/26/17 09:36 Dose: 3.125 mg Collagenase (Santyl) 1 gm TOP DAILY [facility] Enoxaparin Sodium (Lovenox) 40 mg SC DAILY [facility] Last Admin: 10/26/17 09:35 Dose: 40 mg Famotidine (Pepcid) 20 mg PO DAILY [facility] Last Admin: 10/26/17 09:36 Dose: 20 mg Sodium Chloride (Sodium Chloride 0.9%) 1,000 mls @ 100 mls/hr IV .Q10H [facility] Last Admin: 10/26/17 04:42 Dose: 100 mls/hr Piperacillin Sod/Tazobactam Sod (Zosyn 3.375 Gm Iv Premix) 3.375 gm in 50 mls @ 100 mls/hr IVPB Q6H [facility] Last Admin: 10/26/17 12:16 Dose: 100 mls/hr Vancomycin/Sodium Chloride (Vancomycin 1 Gm/Ns 200 Ml) 1 gm in 200 mls @ 133.333 mls/hr IVPB Q12H [facility] PRN Reason: Protocol Last Admin: 10/26/17 06:10 Dose: 133.333 mls/hr Insulin Human Isoph/Insulin Regular (Novolin 70/30 (70/30 Units/Ml) 10 Ml) 24 units SC ACB [facility] Insulin Human Isoph/Insulin Regular (Novolin 70/30 (70/30 Units/Ml) 10 Ml) 16 units SC ACD [facility] Insulin Human NPH (Novolin N) 30 unit SC HS [facility] Insulin Human Regular (Novolin R) 0 unit SC ACHS [facility] PRN Reason: Protocol Rosuvastatin Calcium (Crestor) 5 mg PO HS [facility] Last Admin: 10/25/17 21:28 Dose: 5 mg Results - Vital Signs Recent Vital Signs: Last Vital Signs Temp 97.6 F 10/26/17 07:00 Pulse 82 10/26/17 07:00 Resp 20 10/26/17 07:00 BP 156/92 H 10/26/17 07:00 Pulse Ox 98 10/26/17 14:28 - Labs Result Diagrams: 10/26/17 06:09 10/26/17 06:09 Labs: Laboratory Results - last 24 hr 10/25/17 10/25/17 10/25/17 16:08 16:43 17:11 WBC 7.6 RBC 5.21 Hgb 15.4 Hct 45.2 MCV 86.8 D MCH 29.5 MCHC 34.0 RDW 13.9 Plt Count 237 MPV 9.0 Neut % (Auto) 70.2 Lymph % (Auto) 21.4 [place] % (Auto) 5.7 Eos % (Auto) 1.2 Baso % (Auto) 1.5 Neut # (Auto) 5.3 Lymph # (Auto) 1.6 [place] # (Auto) 0.4 Eos # (Auto) 0.1 Baso # (Auto) 0.1 PT INR APTT Sodium 133 Potassium 5.1 Chloride 96 L Carbon Dioxide 25 Anion Gap 17 BUN 20 Creatinine 0.6 L Est GFR ( Amer) > 60 Est GFR (Non-Af Amer) > 60 POC Glucose (mg/dL) 390 H Random Glucose 422 H* Hemoglobin A1c Calcium 8.9 Total Bilirubin 0.9 AST 28 ALT < 6 L D Alkaline Phosphatase 140 H Total Protein 8.2 Albumin 3.7 Globulin 4.5 H Albumin/Globulin Ratio 0.8 L Triglycerides Cholesterol LDL Cholesterol Direct HDL Cholesterol TSH 3rd Generation Serum Ketones Small 10/25/17 10/26/17 10/26/17 21:13 06:09 06:09 WBC 6.4 RBC 4.48 Hgb 13.5 Hct 39.4 MCV 87.9 MCH 30.2 MCHC 34.4 RDW 13.5 Plt Count 203 MPV 9.1 Neut % (Auto) 66.0 Lymph % (Auto) 24.2 [place] % (Auto) 6.7 Eos % (Auto) 1.9 Baso % (Auto) 1.2 Neut # (Auto) 4.2 Lymph # (Auto) 1.6 [place] # (Auto) 0.4 Eos # (Auto) 0.1 Baso # (Auto) 0.1 PT 10.9 INR 1.0 APTT 29 Sodium Potassium Chloride Carbon Dioxide Anion Gap BUN Creatinine Est GFR ( Amer) Est GFR (Non-Af Amer) POC Glucose (mg/dL) 254 H Random Glucose Hemoglobin A1c Calcium Total Bilirubin AST ALT Alkaline Phosphatase Total Protein Albumin Globulin Albumin/Globulin Ratio Triglycerides Cholesterol LDL Cholesterol Direct HDL Cholesterol TSH 3rd Generation Serum Ketones 10/26/17 10/26/17 10/26/17 06:09 06:09 07:12 WBC RBC Hgb Hct MCV MCH MCHC RDW Plt Count MPV Neut % (Auto) Lymph % (Auto) [place] % (Auto) Eos % (Auto) Baso % (Auto) Neut # (Auto) Lymph # (Auto) [place] # (Auto) Eos # (Auto) Baso # (Auto) PT INR APTT Sodium 139 Potassium 4.0 Chloride 101 Carbon Dioxide 27 Anion Gap 15 BUN 16 Creatinine 0.7 L Est GFR ( Amer) > 60 Est GFR (Non-Af Amer) > 60 POC Glucose (mg/dL) 261 H Random Glucose 305 H Hemoglobin A1c 14.5 H Calcium 8.2 L Total Bilirubin 0.5 AST 10 L D ALT 13 L D Alkaline Phosphatase 91 Total Protein 6.6 Albumin 2.9 L D Globulin 3.6 Albumin/Globulin Ratio 0.8 L Triglycerides 118 D Cholesterol 154 LDL Cholesterol Direct 105 HDL Cholesterol 26 L TSH 3rd Generation 0.67 Serum Ketones 10/26/17 11:25 WBC RBC Hgb Hct MCV MCH MCHC RDW Plt Count MPV Neut % (Auto) Lymph % (Auto) [place] % (Auto) Eos % (Auto) Baso % (Auto) Neut # (Auto) Lymph # (Auto) [place] # (Auto) Eos # (Auto) Baso # (Auto) PT INR APTT Sodium Potassium Chloride Carbon Dioxide Anion Gap BUN Creatinine Est GFR ( Amer) Est GFR (Non-Af Amer) POC Glucose (mg/dL) 354 H Random Glucose Hemoglobin A1c Calcium Total Bilirubin AST ALT Alkaline Phosphatase Total Protein Albumin Globulin Albumin/Globulin Ratio Triglycerides Cholesterol LDL Cholesterol Direct HDL Cholesterol TSH 3rd Generation Serum Ketones
--- NOTE | 2017-10-26 15:35 | CP.PCM.PCO ---
Physician Communication Note - Physician Communication Note Physician Communication Note: Patient does have estimated EF of 25% based on the echocardiogram on 10/26
[2017-10-26] MEDS: (Novolin 70/30) NPH/Regular 70/30 Units/ml 10 ml vial SC SCH (16:31)
--- NOTE | 2017-10-26 21:45 | CARD ---
APPROVED REPORT EXAM: Two-dimensional and M-mode echocardiogram with Doppler and color Doppler. Other Information Quality : GoodRhythm : INDICATION Abnormal EKG/Arrhythmia Congestive Heart Failure Surgery/Intervention ICD/Pacemaker: RISK FACTORS Hypertension Diabetes 2D DIMENSIONS IVSd1.1 (0.7-1.1cm)LVDd5.8 (3.9-5.9cm) PWd1.4 (0.7-1.1cm)LVDs5.1 (2.5-4.0cm) FS (%) 11.8 %LVEF (%)25.1 (>50%) M-Mode DIMENSIONS RVDd2.30 (2.1-3.2cm)Left Atrium (MM)4.14 (2.5-4.0cm) IVSd1.34 (0.7-1.1cm)Aortic Root3.27 (2.2-3.7cm) LVDd6.30 (4.0-5.6cm)Aortic Cusp Exc.2.23 (1.5-2.0cm) PWd1.25 (0.7-1.1cm)FS (%) 15 % LVDs5.35 (2.0-3.8cm)LVEF (%)31 (>50%) Mitral Valve MV E Qacwmvcr61.4cm/sMV A Hwwxyweb22.9cm/sE/A ratio1.1 TDI E/Lateral E'0.0E/Medial E'0.0 Tricuspid Valve TR Peak [id number]/sTR Peak Gr.[id number] LEFT VENTRICLE The left ventricle is moderately dilated. There is borderline to mild concentric left ventricular hypertrophy. The left ventricular function is markedly reduced with diffuse hypokinesis. There is akinesis of the basal-inferolateral and septal jordan. The left ventricular ejection fraction is about 25% The left ventricular diastolic function is indeterminate. No left ventricle thrombus noted on this study. There is no ventricular septal defect visualized. There is no left ventricular aneurysm. There is no mass noted in the left ventricle. RIGHT VENTRICLE The right ventricle is normal size. There is normal right ventricular wall thickness. The right ventricular systolic function is normal. ATRIA The left atrial volume index is mildly increased. The right atrium size is normal. The interatrial septum is intact with no evidence for an atrial septal defect. AORTIC VALVE The aortic valve is normal in structure and function. No aortic regurgitation is present. There is no aortic valvular stenosis. There is no aortic valvular vegetation. MITRAL VALVE The mitral valve is normal in structure and function. There is no evidence of mitral valve prolapse. There is no mitral valve stenosis. There is no mitral valve regurgitation noted. TRICUSPID VALVE The tricuspid valve is normal in structure and function. There is no tricuspid valve regurgitation noted. There is no tricuspid valve prolapse or vegetation. There is no tricuspid valve stenosis. PULMONIC VALVE The pulmonary valve is normal in structure and function. There is no pulmonic valvular regurgitation. There is no pulmonic valvular stenosis. GREAT VESSELS The aortic root is normal in size. The ascending aorta is normal in size. The pulmonary artery is normal. The IVC is normal in size and collapses >50% with inspiration. PERICARDIAL EFFUSION The pericardium appears normal. There is no pleural effusion. <Conclusion> The left ventricular function is markedly reduced with diffuse hypokinesis. There is akinesis of the basal-inferolateral and septal jordan. The left ventricular ejection fraction is about 25% There is borderline to mild concentric left ventricular hypertrophy. The left ventricle is moderately dilated. Normal Doppler.
--- NOTE | 2017-10-26 21:49 | CARD ---
APPROVED REPORT EKG Measurement Heart [id number] <Conclusion> Sinus tachycardia Ventricular-paced rhythm Abnormal ECG
[2017-10-26] MEDS: (Novolin N) Insulin Human Isophane (NPH) 100 u/ml 10 ml vial SC SCH (22:05)
[2017-10-27] MEDS: Piperacill/Tazo 3.375gm in Dex 3.375 GM/50 ML BAG IVPB SCH ×5 (00:05→23:39)
[2017-10-27] MEDS: Sodium Chloride 0.9% 1,000 ML IV SCH ×3 (01:23→20:46)
--- NOTE | 2017-10-27 02:04 | CON ---
DATE: 10/26/2017 INFECTIOUS DISEASE CONSULT REQUESTED BY: Dr. Kevan Gan ____. HISTORY OF PRESENT ILLNESS: This patient is a 47-year-old male and he is diabetic. He also has defibrillator for his cardiac issues and he was admitted yesterday. He has uncontrolled diabetes he says, he does not take anything for his diabetic, foot ulcer left second toe and cellulitis. He has an abscess that began almost a month ago. He also has had repeated surgeries on his right foot, where he lost third, fourth and fifth toe and has bone with dry necrotic scab and he says that something fell on his foot and toe has become progressively red and swollen and a small wound was formed that had scab and the patient picked on it and then it never healed and the toe appears little discolored. He denies however any fever. No chills. Denies any chest pain. No abdominal pain. No nausea. No vomiting. No diarrhea. No other symptoms. Does get shortness of breath on exertion and has AICD which was placed in [place] last year. PAST MEDICAL HISTORY: Significant for surgical history he lost right three toes. He has appendicitis, left fifth toe is partially amputated. He has AICD placement one year ago at [place]. ALLERGIES: HE IS NOT ALLERGIC TO ANY MEDICINE. He takes no medications at home. MEDICATIONS: He is on Tylenol, aspirin, Coreg, Fentanyl, Lovenox, Pepcid, NovoLog 70/30, and on Zosyn, Crestor, IV fluids, and he is getting vancomycin. He is on vancomycin and Zosyn at this time. SOCIAL HISTORY: He does not work. Negative for smoking or drinking or any drug abuse. REVIEW OF SYSTEMS: He has no fever, no chills. No ear, nose and throat problem. He does complain of dyspnea on exertion and he has not been taking any meds. He has no cough and no upper respiratory symptoms. No nausea. No vomiting. No diarrhea. Denies any urinary symptoms. He has skin ulceration and you can see skin ulceration all along his both lower extremities which are leaving scars and scabs and he also has now this left second toe, which has an active abscess and cellulitis. PHYSICAL EXAMINATION: VITAL SIGNS: I find his temperature is 97.6, pulse 82, blood pressure is 156/92 and respiration are 20. GENERAL: He has had no fever. He is alert and awake. Speaks only Macedonian. HEENT: Head is atraumatic and normocephalic. Pupils are reacting to light. Eye movements are unremarkable. NECK: Supple. JVP is flat. LUNGS: Clear. No crackles or rales present. HEART: S1 and S2 is regular. No murmurs appreciated. ABDOMEN: Soft and nontender. No guarding. No rigidity present. EXTREMITIES: Have scabs on both legs and on the left foot, he has second toe which appears to be bluish and red with 1 cm ulcer on the distal phalanx and at the right lateral aspect of the toe blackish and has a small abscess on it and the right foot has lost three toes and there is necrotic scab on the area where the toes were removed. LABORATORY DATA: Labs showed white count is 6.4, hemoglobin 13.5, hematocrit 39.4, and platelet count is 203. Sodium is 139, potassium 4, chloride 101, CO2 27, BUN is 16 and creatinine is 0.7. AST and ALT is unremarkable and ketones are negative. X-rays, they did a lower extremity CT which shows that the head of the second phalanx there is a small mild cortical irregularity at the dorsal aspect of the bony cortex. This is non specific and underlying osteomyelitis cannot be excluded, correlation recommended with MRI or a three-phase bone scan and then he has cortical changes at the head of the fifth metatarsal bone. This may be sequela of chronic post surgical and/or chronic osteomyelitic changes, superimposed acute osteo cannot be excluded then the talk of bipartite lateral sesamoid bone, extensive vascular calcification, subcutaneous soft tissue swelling and edema through out the visualized foot which may represent underlying cellulitis and then mild cortical irregularity along the posterior cortex of the distal tibia and distal fibula likely chronic. ASSESSMENT AND PLAN: So at this time, he has these irregularities in the bones may be related to osteomyelitis which may be present and since he is cardiac patient, he has this diabetic foot ulcer, he has biventricular implantable cardioverter-defibrillator and he has uncontrolled diabetes, he does not take any medications at home. At this time, we will continue with the IV antibiotics, will follow with the Election Judge and he may need Vascular evaluation also, as he has cardiac issues and he probably has uncontrolled diabetes. Rosa Nicholas MD
--- NOTE | 2017-10-27 04:16 | CON ---
DATE: 10/26/2017. LOCATION: Room 352. HISTORY: This is a 47-year-old male with known history of type 2 insulin requiring diabetes, presenting here with an abscess in the left second toe and undergoing debridement and IV antibiotic management and is also being referred now for diabetic evaluation and management. PAST MEDICAL HISTORY: As mentioned above, history of type 2 insulin requiring diabetes using Lantus only once a day as noted with persistent hyperglycemic accelerations and also because of financial constraints have run out of the medications on many occasions. History of hypertension and dyslipidemia, history of diabetic retinopathy and polyneuropathy, moreover, he has significant peripheral arterial vasculopathy with previous 3 toe amputations in the right foot and a fifth toe amputation in the left foot as noted. Also significant cardiac tachyarrhythmias and previous admissions for congestive heart failure with a subsequent biventricular implantable cardio defibrillator inserted thereof. FAMILY HISTORY: Positive for diabetes and hypertension. SOCIAL HISTORY: The patient has a supportive family. No known substance use. REVIEW OF SYSTEMS: As mentioned above, admits to generalized body weakness with episodic bouts of dizziness and lightheadedness. Also admits to episodic precordial chest pain with progressive shortness of breath especially with exertion. His oral intake is variable with nausea and dyspepsia and admits to marked polyuria and nocturia as noted. PHYSICAL EXAMINATION: VITAL SIGNS: This is an average-built male in no apparent distress with a blood pressure of 150/90, pulse of 70 beats per minute regular, temperature 98, respirations 20, height is 5 feet 8 inches, weight is 158 pounds. HEENT: Head normocephalic. Eyes anicteric with pink conjunctivae. Funduscopy not possible at this time. Ears, nose, and throat, otherwise normal. NECK: Supple. Thyroid gland is normal size. No carotid bruits. No cervical adenopathy. CARDIOPULMONARY: Adynamic precordium. S1 and S2 is rapid and regular. LUNGS: Clear to auscultation. ABDOMEN: Flat, soft and positive bowel sounds. EXTREMITIES: No peripheral edema. Pulses are +2 bilaterally. The left foot shows a fluctuant area in the left second toe with an underlying abscess and a recent debridement undertaken thereof. There still is surrounding cellulitis as noted. LAB WORK: Chemistries showed a BUN of 16, sodium 139, potassium 4, chloride 101, CO2 27, glucose 305 and creatinine 0.7. His hemoglobin A1c is 14.5%. ASSESSMENT: This is a 47-year-old male with uncontrolled and decompensated type 2 insulin requiring diabetes, presenting here with a left second toe abscess and underlying peripheral arterial vasculopathy with diabetic polyneuropathy and is being referred now for diabetic evaluation because of persistent suboptimal metabolic control of his diabetic condition. PLAN OF MANAGEMENT: We will modify his current insulin regimen and switch him over to more affordable, conventional, premixed insulin regimen, given in combination with basal insulin as ordered. We have started with Novolin 70/30, given as 24 units, a.c. breakfast, 16 units a.c. dinner to start today. We will add basal insulin with Novolin NPH, given as 30 units at bedtime daily to start tonight. We will modify the coverage scale to obviate hypoglycemia and detailed orders have been given. We will obtain serial chemistries and supplement accordingly as needed. We will follow. Holly Mckenzie MD
[2017-10-27] MEDS: Vancomycin 1 gm/NS 200 ml 1 GM/200 ML BAG IVPB SCH ×2 (06:20→18:53)
[2017-10-27 07:34] LABS: BASO # 0.1 K/uL (0.0-0.2); BASO % 1.2 % (0.0-2.0); EOS # 0.2 K/uL (0.0-0.7); EOS % 2.5 % (0.0-4.0); HEMOGLOBIN 13.4 g/dL (12.0-18.0); LYMPH # 1.7 K/uL (1.0-4.3); LYMPH % 25.4 % (20.0-40.0); MEAN CORPUSCULAR HEMOGLOBIN 30.2 pg (27.0-31.0); MEAN CORPUSCULAR HGB CONC 34.3 g/dL (33.0-37.0); MEAN PLATELET VOLUME 8.5 fL (7.2-11.7); MONO # 0.4 K/uL (0.0-0.8); MONO % 6.1 % (0.0-10.0); NEUT # 4.3 K/uL (1.8-7.0); NEUT % 64.8 % (50.0-75.0); RBC 4.45 Mil/uL (4.40-5.90); RED CELL DISTRIBUTION WIDTH 13.4 % (11.5-14.5); WHITE BLOOD COUNT 6.6 K/uL (4.8-10.8)
[2017-10-27 07:50] LABS: BLOOD UREA NITROGEN 16 mg/dL (9-20); CALCIUM 8.2 mg/dl (8.6-10.4); GFR AFRICAN-AMERICAN > 60; GFR NON-AFRICAN AMERICAN > 60
[2017-10-27] MEDS: (Novolin R) Insulin Human Regular 100 units/ml vial SC SCH ×4 (08:18→21:26)
[2017-10-27] MEDS: (Novolin 70/30) NPH/Regular 70/30 Units/ml 10 ml vial SC SCH ×2 (08:30→17:38)
[2017-10-27] MEDS: Enoxaparin 40 mg Syringe SC SCH (09:49)
[2017-10-27] MEDS ORDERED: Pneumococcal 23-Valent Vaccine IM ONE (10:00)
[2017-10-27] MEDS: Collagenase 250 Units/gm Ointment(30 gm) TOP SCH (10:34)
--- NOTE | 2017-10-27 11:36 | CP.PCM.PN ---
<Ivonne Gómez - Last Filed: 10/27/17 11:41> Subjective - Date & Time of Evaluation Date of Evaluation: 10/27/17 Time of Evaluation: 09:30 - Subjective Subjective: Patient seen and examined at bedside. Patient resting comfortably in bed with no new complaints at this time. Patient denies pain in any areas of his wounds. He also denies fever, chills, chest pain, SOB, palpitations, cough, abdominal pain, n/v/d/c, and lower extremity pain/swelling. Objective - Vital Signs/Intake and Output Vital Signs (last 24 hours): Temp Pulse Resp BP Pulse Ox 98.6 F 79 20 152/88 H 96 10/27/17 07:55 10/27/17 07:55 10/27/17 07:55 10/27/17 07:55 10/27/17 07:55 Intake and Output: 10/27/17 10/27/17 06:59 18:59 Intake Total 550 Balance 550 - Medications Medications: Current Medications Acetaminophen (Tylenol 325mg Tab) 650 mg PO Q6 PRN PRN Reason: Fever >100.4 F Aspirin (Aspirin Chewable) 81 mg PO DAILY [facility] Last Admin: 10/27/17 09:48 Dose: 81 mg Carvedilol (Coreg) 3.125 mg PO BID [facility] Last Admin: 10/27/17 09:48 Dose: 3.125 mg Collagenase (Santyl) 1 gm TOP DAILY [facility] Last Admin: 10/27/17 10:34 Dose: 1 gm Enoxaparin Sodium (Lovenox) 40 mg SC DAILY [facility] Last Admin: 10/27/17 09:49 Dose: 40 mg Sodium Chloride (Sodium Chloride 0.9%) 1,000 mls @ 100 mls/hr IV .Q10H [facility] Last Admin: 10/27/17 09:55 Dose: 100 mls/hr Piperacillin Sod/Tazobactam Sod (Zosyn 3.375 Gm Iv Premix) 3.375 gm in 50 mls @ 100 mls/hr IVPB Q6H [facility] Last Admin: 10/27/17 10:37 Dose: 100 mls/hr Vancomycin/Sodium Chloride (Vancomycin 1 Gm/Ns 200 Ml) 1 gm in 200 mls @ 133.333 mls/hr IVPB Q12H [facility] PRN Reason: Protocol Last Admin: 10/27/17 06:20 Dose: 133.333 mls/hr Insulin Human Isoph/Insulin Regular (Novolin 70/30 (70/30 Units/Ml) 10 Ml) 24 units SC ACB [facility] Last Admin: 10/27/17 08:30 Dose: 24 units Insulin Human Isoph/Insulin Regular (Novolin 70/30 (70/30 Units/Ml) 10 Ml) 16 units SC ACD [facility] Last Admin: 10/26/17 16:31 Dose: 16 units Insulin Human NPH (Novolin N) 30 unit SC HS [facility] Last Admin: 10/26/17 22:05 Dose: 30 unit Insulin Human Regular (Novolin R) 0 unit SC ACHS [facility] PRN Reason: Protocol Last Admin: 10/27/17 11:17 Dose: Not Given Rosuvastatin Calcium (Crestor) 5 mg PO HS [facility] Last Admin: 10/26/17 22:05 Dose: 5 mg - Labs Labs: 10/27/17 07:27 10/27/17 07:27 PT 10.9 SECONDS (9.7-12.2) 10/26/17 06:09 INR 1.0 10/26/17 06:09 APTT 29 SECONDS (21-34) 10/26/17 06:09 - Additional Findings Additional findings: - Constitutional Appears: Non-toxic, No Acute Distress - Head Exam Head Exam: ATRAUMATIC, NORMAL INSPECTION, NORMOCEPHALIC - Eye Exam Eye Exam: EOMI, Normal appearance, PERRL - ENT Exam ENT Exam: Mucous Membranes Moist - Respiratory Exam Respiratory Exam: Clear to Ausculation Bilateral, NORMAL BREATHING PATTERN. absent: Rales, Rhonchi, Wheezes - Cardiovascular Exam Cardiovascular Exam: RRR, +S1, +S2 - GI/Abdominal Exam GI & Abdominal Exam: Soft, Normal Bowel Sounds. absent: Distended, Tenderness - Extremities Exam Extremities Exam: absent: Calf Tenderness, Pedal Edema Additional comments: LLE: Ulceration of dorsal surface of the left 2nd digit approximately 1 cm x .75 cm with surrounding erythema spreading to distal forefoot; no purulent drainage or mal odor RLE: ulceration of anterior tibia approximately 1.5 cm x 1 cm without surrounding erythema, purulent drainage, or mal odor; 3rd-5th digits amputated with overlying hyperpigmented plaque noted over previous surgical site without erythema, drainage, or mal odor - Neurological Exam Neurological Exam: Alert, Awake, Oriented x3 - Psychiatric Exam Psychiatric exam: Normal Affect, Normal Mood - Skin Skin Exam: Dry, Intact, Normal Color, Warm Assessment and Plan - Assessment and Plan (Free Text) Plan: Disposition: Patient is low-moderate risk for low risk procedure given his cardiac history with EF 24% and uncontrolled DM. Will follow up with podiatry about plan for OR. Will f/u arterial doppler. Diabetic foot ulcer * Dr. Nicholas (ID) consulted, help appreciated * Dr. Soler (podiatry) consulted, help appreciated * Will follow up with whether or not planning for the OR * Dr. Valencia (cardiology) consulted for pre op risk stratification, help appreciated * Wound cultures: Coag neg staph * Blood cultures negative x24H Imaging * Left Foot XR: Interval soft tissue and bone loss at the distal 2nd digit consider infectious or inflammatory process versus postoperative change or posttraumatic etiology. Osteomyelitis is not excluded as discussed above. Similar pattern is seen affecting the distal most segment of the left 5th metatarsal bone and further clinical correlation is advised. Diffuse dorsal foot soft tissue edema as well as at least at the forefoot and midfoot plantar soft tissues as well. * Right Foot XR: Status post interval therefore the 5th transmetatarsal amputation. Mild forefoot and ankle soft tissue edema suggested as discussed above. No overt radiographic sign of osteomyelitis at this time. MRI can be performed for further characterization as clinically warranted as it is more sensitive for osteomyelitis radiography. Degenerative changes 1st and 2nd metatarsophalangeal joints and 2nd digit. * Right Tib/Fib: No radiographic evidence for bony erosion or destruction to suggest osteomyelitis. * CT left foot: 1. At the level of the head of the 2nd proximal phalanx best seen on the sagittal series 602, image 36, there is some mild cortical irregularity at the dorsal aspect of the bony cortex. This is nonspecific and underlying osteomyelitis at this level cannot be excluded. Correlation with MRI and or 3 phase bone scan would be helpful for further evaluation of this region. 2. Cortical irregularity with dysplastic changes noted at the head of the 5th metatarsal bone. This may be the sequelae of chronic postsurgical and/ or chronic osteomyelitic changes and or additional etiology. Superimposed acute osteomyelitic changes cannot entirely be excluded. Clinical correlation. If there is concern for acute osteomyelitis at this level, correlation with MRI and or three-phase bone scan may be helpful if indicated. 3. Bipartite lateral sesamoid bone. 4. Extensive vascular calcifications. 5. Subcutaneous soft tissue swelling and edema seen throughout the visualized foot which may represent underlying cellulitis. Clinical correlation. 6. Mild cortical irregularity along the posterior cortex of the distal tibia and distal fibula, likely chronic. Clinical correlation. * 10/27 follow up arterial doppler Meds: * Zosyn 3.375 g Q6H * Vanc 1 g Q12H * Tylenol prn for fever * Santyl Uncontrolled diabetes * Dr. Mckenzie (Endocrine) consulted, help appreciated * HgbA1c 14.5 * Lipid panel: Trig 118, Chol 154, LDL 105, HDL 26 * TSH: 0.67 * Accuchecks ACHS Meds: * Novolin 70/30 24 units ACB and 16 units ACD * Novolin N 30 units SC HS * Sliding scale insulin * Hold metformin * Crestor 5 mg HS * NS 100 cc CHF with biventricular ICD * Coreg 3.125 mg BID * ASA 81 mg QD Prophylaxis * Lovenox * GI prophylaxis not indicated <Rohini Canales - Last Filed: 10/29/17 12:43> Objective - Vital Signs/Intake and Output Vital Signs (last 24 hours): Temp Pulse Resp BP Pulse Ox 98.4 F 76 20 136/87 96 10/29/17 07:36 10/29/17 07:36 10/29/17 07:36 10/29/17 07:36 10/29/17 07:36 Intake and Output: 10/29/17 10/29/17 06:59 18:59 Intake Total 1500 Output Total 500 Balance 1000 - Medications Medications: Current Medications Acetaminophen (Tylenol 325mg Tab) 650 mg PO Q6 PRN PRN Reason: Fever >100.4 F Aspirin (Aspirin Chewable) 81 mg PO DAILY [facility] Last Admin: 10/29/17 10:04 Dose: Not Given Carvedilol (Coreg) 3.125 mg PO BID [facility] Last Admin: 10/29/17 10:01 Dose: 3.125 mg Collagenase (Santyl) 1 gm TOP DAILY [facility] Last Admin: 10/29/17 09:44 Dose: Not Given Enoxaparin Sodium (Lovenox) 40 mg SC DAILY [facility] Last Admin: 10/29/17 10:03 Dose: Not Given Sodium Chloride (Sodium Chloride 0.9%) 1,000 mls @ 100 mls/hr IV .Q10H [facility] Last Admin: 10/29/17 06:05 Dose: Not Given Piperacillin Sod/Tazobactam Sod (Zosyn 3.375 Gm Iv Premix) 3.375 gm in 50 mls @ 100 mls/hr IVPB Q6H [facility] Last Admin: 10/29/17 12:04 Dose: 100 mls/hr Vancomycin/Sodium Chloride (Vancomycin 1 Gm/Ns 200 Ml) 1 gm in 200 mls @ 133.333 mls/hr IVPB Q12H [facility] PRN Reason: Protocol Last Admin: 10/29/17 06:06 Dose: 133.333 mls/hr Dextrose/Sodium Chloride (Dextrose 5%/0.45% Ns 1000 Ml) 1,000 mls @ 100 mls/hr IV .Q10H [facility] Last Admin: 10/29/17 03:00 Dose: 100 mls/hr Insulin Human Isoph/Insulin Regular (Novolin 70/30 (70/30 Units/Ml) 10 Ml) 24 units SC ACB [facility] Last Admin: 10/29/17 08:13 Dose: Not Given Insulin Human Isoph/Insulin Regular (Novolin 70/30 (70/30 Units/Ml) 10 Ml) 16 units SC ACD [facility] Last Admin: 10/28/17 17:45 Dose: Not Given Insulin Human NPH (Novolin N) 30 unit SC HS [facility] Last Admin: 10/28/17 22:10 Dose: Not Given Insulin Human Regular (Novolin R) 0 unit SC ACHS [facility] PRN Reason: Protocol Last Admin: 10/29/17 12:01 Dose: Not Given Losartan Potassium (Cozaar) 50 mg PO DAILY [facility] Last Admin: 10/29/17 10:02 Dose: 50 mg Rosuvastatin Calcium (Crestor) 5 mg PO HS [facility] Last Admin: 10/28/17 21:27 Dose: 5 mg Spironolactone (Aldactone) 25 mg PO DAILY [facility] Last Admin: 10/29/17 10:02 Dose: 25 mg - Labs Labs: 10/29/17 06:15 10/29/17 06:15 PT 10.9 SECONDS (9.7-12.2) 10/26/17 06:09 INR 1.0 10/26/17 06:09 APTT 29 SECONDS (21-34) 10/26/17 06:09 Attending/Attestation - Attestation I have personally seen and examined this patient.: Yes I have fully participated in the care of the patient.: Yes I have reviewed all pertinent clinical information, including history, physical exam and plan: Yes Notes (Text): This is a 47 year old male with past medical history of uncontrolled diabetes, hx of diabetic foot ulcer, HTN, CHF with biventricular ICD placement is admitted for diabetic foot ulcer of the left 2nd toe. wound examined,patient was seen and examined by me,lying comfortable.discussed about sugar control denies sob,no leg edema 1.Diabetic foot ulcer-follow investment accounting clerk Dr Soler,continue antibiotics.planning for surgery 2. Uncontrolled diabetes-continue insulin as per Dr Mckenzie.Discussed about sugar control after discharge 3.Noncompliance with medication and follow up 4.chronic Severe systolic heart failure with biventricular ICD-Spoke to Dr Valencia.meds adjusted.CHF stable Patient was seen and examined by me ,Discussed with the resident. I agree with documentation of the resident's assessment and the plan
--- NOTE | 2017-10-27 13:40 | VASCLAB ---
STUDY DESCRIPTION: HISTORY: Diabetic foot infection PRIORS: None. TECHNIQUE: Pulse volume recording waveforms and segmental pressures of bilateral lower extremities at multiple levels were obtained. Ankle Brachial Indices (ABIs) were calculated. Report prepared by HO Klein, RVT RIGHT LOWER EXTREMITY: * Brachial artery: Pressure - 143 mmHg. * High thigh: Pressure - 220 mmHg: Ratio - NC: PVR waveform - Pulsatile * Low thigh: Pressure - 167 mmHg: Ratio - 1.17 PVR waveform: Pulsatile * Calf: Pressure - 220 mmHg: Ratio - NC PVR waveform: Pulsatile * Posterior tibial Artery: Pressure - 220 mmHg: Ratio - NC PVR waveform: Pulsatile * Dorsalis pedis Artery: Pressure - 220 mmHg: Ratio - NC PVR waveform: Pulsatile * Great toe: Pressure - mmHg: Ratio - PVR waveform: Ankle brachial index (DYLON): NC LEFT LOWER EXTREMITY: * Brachial artery: Pressure - 134 mmHg. * High thigh: Pressure - 220 mmHg: Ratio - NC: PVR waveform - Pulsatile * Low thigh: Pressure - 164 mmHg: Ratio - 1.15 PVR waveform: Pulsatile * Calf: Pressure - 220 mmHg: Ratio - CN PVR waveform: Pulsatile * Posterior tibial Artery: Pressure - 220 mmHg: Ratio - NC PVR waveform: Pulsatile * Dorsalis pedis Artery: Pressure - 220 mmHg: Ratio - NC PVR waveform: Pulsatile * Great toe: Pressure - mmHg: Ratio - PVR waveform: Ankle brachial index (DYLON): NC OTHER FINDINGS: Right: Left: IMPRESSION: Right: The ankle pressure index of the right lower extremity is non-diagnostic due to possible arterial wall calcifications. Left: The ankle pressure index of the left lower extremity is non-diagnostic due to possible arterial wall calcifications.
--- NOTE | 2017-10-27 14:30 | CP.PCM.PN ---
<Janay Lancaster - Last Filed: 10/27/17 15:07> Subjective - Date & Time of Evaluation Date of Evaluation: 10/27/17 Time of Evaluation: 14:28 - Subjective Subjective: Patient seen and examined at bedside. Patient denies any chest pain, dyspnea, or palpitations. Discussed with patient his need to commit to take his medications to preserve his heart function. Otherwise, nurse reports no events overnight. Objective - Vital Signs/Intake and Output Vital Signs (last 24 hours): Temp Pulse Resp BP Pulse Ox 98.6 F 79 20 152/88 H 96 10/27/17 07:55 10/27/17 07:55 10/27/17 07:55 10/27/17 07:55 10/27/17 07:55 Intake and Output: 10/27/17 10/27/17 06:59 18:59 Intake Total 550 Balance 550 - Medications Medications: Current Medications Acetaminophen (Tylenol 325mg Tab) 650 mg PO Q6 PRN PRN Reason: Fever >100.4 F Aspirin (Aspirin Chewable) 81 mg PO DAILY [facility] Last Admin: 10/27/17 09:48 Dose: 81 mg Carvedilol (Coreg) 3.125 mg PO BID [facility] Last Admin: 10/27/17 09:48 Dose: 3.125 mg Collagenase (Santyl) 1 gm TOP DAILY [facility] Last Admin: 10/27/17 10:34 Dose: 1 gm Enoxaparin Sodium (Lovenox) 40 mg SC DAILY [facility] Last Admin: 10/27/17 09:49 Dose: 40 mg Sodium Chloride (Sodium Chloride 0.9%) 1,000 mls @ 100 mls/hr IV .Q10H [facility] Last Admin: 10/27/17 09:55 Dose: 100 mls/hr Piperacillin Sod/Tazobactam Sod (Zosyn 3.375 Gm Iv Premix) 3.375 gm in 50 mls @ 100 mls/hr IVPB Q6H [facility] Last Admin: 10/27/17 10:37 Dose: 100 mls/hr Vancomycin/Sodium Chloride (Vancomycin 1 Gm/Ns 200 Ml) 1 gm in 200 mls @ 133.333 mls/hr IVPB Q12H [facility] PRN Reason: Protocol Last Admin: 10/27/17 06:20 Dose: 133.333 mls/hr Insulin Human Isoph/Insulin Regular (Novolin 70/30 (70/30 Units/Ml) 10 Ml) 24 units SC ACB [facility] Last Admin: 10/27/17 08:30 Dose: 24 units Insulin Human Isoph/Insulin Regular (Novolin 70/30 (70/30 Units/Ml) 10 Ml) 16 units SC ACD [facility] Last Admin: 10/26/17 16:31 Dose: 16 units Insulin Human NPH (Novolin N) 30 unit SC HS [facility] Last Admin: 10/26/17 22:05 Dose: 30 unit Insulin Human Regular (Novolin R) 0 unit SC ACHS [facility] PRN Reason: Protocol Last Admin: 10/27/17 11:17 Dose: Not Given Losartan Potassium (Cozaar) 50 mg PO DAILY [facility] Rosuvastatin Calcium (Crestor) 5 mg PO HS [facility] Last Admin: 10/26/17 22:05 Dose: 5 mg Spironolactone (Aldactone) 25 mg PO DAILY [facility] - Labs Labs: 10/27/17 07:27 10/27/17 07:27 PT 10.9 SECONDS (9.7-12.2) 10/26/17 06:09 INR 1.0 10/26/17 06:09 APTT 29 SECONDS (21-34) 10/26/17 06:09 - Constitutional Appears: Well, Non-toxic - Head Exam Head Exam: ATRAUMATIC, NORMOCEPHALIC - Eye Exam Eye Exam: EOMI, Normal appearance - ENT Exam ENT Exam: Mucous Membranes Moist - Neck Exam Neck Exam: Normal Inspection - Respiratory Exam Respiratory Exam: Clear to Ausculation Bilateral, NORMAL BREATHING PATTERN. absent: Accessory Muscle Use - Cardiovascular Exam Cardiovascular Exam: RRR, +S1, +S2 - GI/Abdominal Exam GI & Abdominal Exam: Soft, Normal Bowel Sounds. absent: Rebound - Extremities Exam Extremities Exam: absent: Pedal Edema Additional comments: feet wrapped, chronic non-healing ulcers - Neurological Exam Neurological Exam: Alert, Awake, Oriented x3 - Psychiatric Exam Psychiatric exam: Normal Affect, Normal Mood - Skin Skin Exam: Dry, Normal Color, Warm Assessment and Plan - Assessment and Plan (Free Text) Assessment: 47 year old male with a past medical history of uncontrolled DM, non- ischemic cardiomyopathy with severe left ventricular systolic dysfunction, s/p biventricular pacemaker, with podiatry planning for potential 2nd digit arthroplasty with resection of non-viable adjacent bone who cardiology was consulted for cardiac risk stratification for the aforementioned, non-cardiac surgery. Echocardiogram showed left ventricular function is markedly reduced with diffuse hypokinesis. There is akinesis of the basal-inferiolateral and septal jordan. The left ventricular ejecton fraction is estimated to be 25%. There is borderline mild concentric LVH. The left ventricle is moderately dilated. Normal Doppler. Plan: Cardiac risk stratification: According to the 2014 AHA/ACC guidelines on preoperative risk assessment in a patient undergoing a noncardiac sugery, this patient is considered low risk for a low risk procedure. Guideline directed Medical therapy for non-ischemic cardiomyopathy with an estimated EF of 30% with Losartan 50 mg PO daily as well as Spirinolactone 25 mg PO daily. Patient to follow up with Dr. Valencia within one week of discharge to continue monitoring clinically and adjust medications as appropriate. We will continue to follow with you. Case reviewed and discussed with Dr. Valencia <Chet Valencia - Last Filed: 10/27/17 15:36> Objective - Vital Signs/Intake and Output Vital Signs (last 24 hours): Temp Pulse Resp BP Pulse Ox 98.6 F 79 20 152/88 H 96 10/27/17 07:55 10/27/17 07:55 10/27/17 07:55 10/27/17 07:55 10/27/17 07:55 Intake and Output: 10/27/17 10/27/17 06:59 18:59 Intake Total 550 1280 Balance 550 1280 - Medications Medications: Current Medications Acetaminophen (Tylenol 325mg Tab) 650 mg PO Q6 PRN PRN Reason: Fever >100.4 F Aspirin (Aspirin Chewable) 81 mg PO DAILY [facility] Last Admin: 10/27/17 09:48 Dose: 81 mg Carvedilol (Coreg) 3.125 mg PO BID [facility] Last Admin: 10/27/17 09:48 Dose: 3.125 mg Collagenase (Santyl) 1 gm TOP DAILY [facility] Last Admin: 10/27/17 10:34 Dose: 1 gm Enoxaparin Sodium (Lovenox) 40 mg SC DAILY [facility] Last Admin: 10/27/17 09:49 Dose: 40 mg Sodium Chloride (Sodium Chloride 0.9%) 1,000 mls @ 100 mls/hr IV .Q10H [facility] Last Admin: 10/27/17 09:55 Dose: 100 mls/hr Piperacillin Sod/Tazobactam Sod (Zosyn 3.375 Gm Iv Premix) 3.375 gm in 50 mls @ 100 mls/hr IVPB Q6H [facility] Last Admin: 10/27/17 10:37 Dose: 100 mls/hr Vancomycin/Sodium Chloride (Vancomycin 1 Gm/Ns 200 Ml) 1 gm in 200 mls @ 133.333 mls/hr IVPB Q12H [facility] PRN Reason: Protocol Last Admin: 10/27/17 06:20 Dose: 133.333 mls/hr Insulin Human Isoph/Insulin Regular (Novolin 70/30 (70/30 Units/Ml) 10 Ml) 24 units SC ACB [facility] Last Admin: 10/27/17 08:30 Dose: 24 units Insulin Human Isoph/Insulin Regular (Novolin 70/30 (70/30 Units/Ml) 10 Ml) 16 units SC ACD [facility] Last Admin: 10/26/17 16:31 Dose: 16 units Insulin Human NPH (Novolin N) 30 unit SC HS [facility] Last Admin: 10/26/17 22:05 Dose: 30 unit Insulin Human Regular (Novolin R) 0 unit SC ACHS [facility] PRN Reason: Protocol Last Admin: 10/27/17 11:17 Dose: Not Given Losartan Potassium (Cozaar) 50 mg PO DAILY [facility] Last Admin: 10/27/17 14:52 Dose: 50 mg Rosuvastatin Calcium (Crestor) 5 mg PO HS [facility] Last Admin: 10/26/17 22:05 Dose: 5 mg Spironolactone (Aldactone) 25 mg PO DAILY [facility] Last Admin: 10/27/17 14:52 Dose: 25 mg - Labs Labs: 10/27/17 07:27 10/27/17 07:27 PT 10.9 SECONDS (9.7-12.2) 10/26/17 06:09 INR 1.0 10/26/17 06:09 APTT 29 SECONDS (21-34) 10/26/17 06:09 Assessment and Plan (1) Preop cardiovascular exam Status: Acute (2) Abnormal EKG Status: Acute (3) Hypertension Status: Chronic (4) Systolic heart failure, chronic Status: Chronic Attending/Attestation - Attestation I have personally seen and examined this patient.: Yes I have fully participated in the care of the patient.: Yes I have reviewed all pertinent clinical information, including history, physical exam and plan: Yes Notes (Text): 10/27/17 15:31 EF 25-30% cont coreg add arb and aldactone
--- NOTE | 2017-10-27 18:11 | CP.PCM.PN ---
Subjective - Date & Time of Evaluation Date of Evaluation: 10/27/17 Time of Evaluation: 12:30 - Subjective Subjective: Podiatry Progress Note- Dr. Soler 47 year old male is seen at bedside for left 2nd toe wound with accompanying cellulits and right leg ulcer. Pt reports improvement in swelling to the left leg. He denies any acute overnight events. No recent fever/chills, chest pain, nausea, vomiting, or diarrhea. Objective - Vital Signs/Intake and Output Vital Signs (last 24 hours): Temp Pulse Resp BP Pulse Ox 98 F 69 20 128/81 97 10/27/17 15:00 10/27/17 15:00 10/27/17 15:00 10/27/17 15:00 10/27/17 15:00 Intake and Output: 10/27/17 10/27/17 06:59 18:59 Intake Total 550 1280 Balance 550 1280 - Medications Medications: Current Medications Acetaminophen (Tylenol 325mg Tab) 650 mg PO Q6 PRN PRN Reason: Fever >100.4 F Aspirin (Aspirin Chewable) 81 mg PO DAILY [facility] Last Admin: 10/27/17 09:48 Dose: 81 mg Carvedilol (Coreg) 3.125 mg PO BID [facility] Last Admin: 10/27/17 17:35 Dose: 3.125 mg Collagenase (Santyl) 1 gm TOP DAILY [facility] Last Admin: 10/27/17 10:34 Dose: 1 gm Enoxaparin Sodium (Lovenox) 40 mg SC DAILY [facility] Last Admin: 10/27/17 09:49 Dose: 40 mg Sodium Chloride (Sodium Chloride 0.9%) 1,000 mls @ 100 mls/hr IV .Q10H [facility] Last Admin: 10/27/17 09:55 Dose: 100 mls/hr Piperacillin Sod/Tazobactam Sod (Zosyn 3.375 Gm Iv Premix) 3.375 gm in 50 mls @ 100 mls/hr IVPB Q6H [facility] Last Admin: 10/27/17 17:35 Dose: 100 mls/hr Vancomycin/Sodium Chloride (Vancomycin 1 Gm/Ns 200 Ml) 1 gm in 200 mls @ 133.333 mls/hr IVPB Q12H [facility] PRN Reason: Protocol Last Admin: 10/27/17 06:20 Dose: 133.333 mls/hr Dextrose/Sodium Chloride (Dextrose 5%/0.45% Ns 1000 Ml) 1,000 mls @ 100 mls/hr IV .Q10H [facility] Insulin Human Isoph/Insulin Regular (Novolin 70/30 (70/30 Units/Ml) 10 Ml) 24 units SC ACB [facility] Last Admin: 10/27/17 08:30 Dose: 24 units Insulin Human Isoph/Insulin Regular (Novolin 70/30 (70/30 Units/Ml) 10 Ml) 16 units SC ACD [facility] Last Admin: 10/27/17 17:38 Dose: 16 units Insulin Human NPH (Novolin N) 30 unit SC HS [facility] Last Admin: 10/26/17 22:05 Dose: 30 unit Insulin Human NPH (Novolin N) 15 unit SC ONCE ONE Stop: 10/27/17 22:01 Insulin Human Regular (Novolin R) 0 unit SC ACHS [facility] PRN Reason: Protocol Last Admin: 10/27/17 16:56 Dose: Not Given Losartan Potassium (Cozaar) 50 mg PO DAILY [facility] Last Admin: 10/27/17 14:52 Dose: 50 mg Rosuvastatin Calcium (Crestor) 5 mg PO HS [facility] Last Admin: 10/26/17 22:05 Dose: 5 mg Spironolactone (Aldactone) 25 mg PO DAILY [facility] Last Admin: 10/27/17 14:52 Dose: 25 mg - Labs Labs: 10/27/17 07:27 10/27/17 07:27 PT 10.9 SECONDS (9.7-12.2) 10/26/17 06:09 INR 1.0 10/26/17 06:09 APTT 29 SECONDS (21-34) 10/26/17 06:09 - Constitutional Appears: Well, Non-toxic, No Acute Distress - Extremities Exam Additional comments: Bilateral lower extremity focused. VASC: Bilateral pedal pulses graded 1/4. Left forefoot pitting edema with localized callor. LEft dorsal midfoot pedal hair growth noted. [employer] to all 7 digits bilaterally is intact and less then 3 seconds. DERM: Left- dorsal full thickness ulceration measuring 0.6x 0.8 cm with a mixed fibro-granular base. Positive lwab-au-pogw at level of 2nd digit proximal interphalangel joint. Periwound non streaking, non-blanchable erythema extending to middle column of forefoot. Localized calor to area of rubor. No mal -odor, active serous drainage noted, absent purulence. Inter-digital mid maceration with lateral 2nd dit skin sloughing, likely secondary to de-roofed bulla. Nails are normotrophic to all 5 digits. Right- Anterior partial thickness ulceration noted to anterior ridge of tibial at mildly 1/3 of tibia measuring 1.6 x 0.8 cm with a fibrotic wound base. No sheryl-wound erythema, no mal-odor, no acute signs if infection. No undermining or raised margins. 3-5th ray amputation site noted with surgical site flap intact, however hyperpigmented scaling plaque noted, absent irregular margins. Stably adhered to dermal base, absent acute signs of infection. NEURO: Protective sensation greatly diminished to forefoot and midfoot. 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 MMT reveals pedal and lower leg group muscle strength is graded 5/5. - Neurological Exam Neurological Exam: Alert, Awake, Oriented x3 - Psychiatric Exam Psychiatric exam: Normal Affect, Normal Mood Assessment and Plan - Assessment and Plan (Free Text) Assessment: 47 year old male with 1) left 2nd digit Mancera grade 3 ulceration, with accompanying cellulits. 2) Right leg ulceration, stable non-healing. Plan: Pt seen and evaluated. Discussed with attending Dr. Soler who endorsed the following plan. Chart, labs, and vitals reviewed. afebrile, WBC=6.4. CT scan ordered- results show 2nd proximal phalynx head changes and atrophy. Wound culture results-Coagulase negative staphylococcus. ID consult - recommendations appreciated. Left 2nd digit cellulitis and chronic wound, surgical intervention indicated. Pt to go to surgery tomorrow 10/28/17 in afternoon for left 2nd digit arthroplasty with resection of non-viable bone. - Medical clearance - obtained - Cardiac clearance - obtained. - Pt placed NPO - Anticoagulants held. - Discussed with pt risks, benefits, complications, alternatives, and expected recovery period. Pt agreed to surgical intervention. Santyl, wet-to-dry dressing applied to right leg ulceration. Cleansed wound sites with sterile saline. Dressed left foot with santyl, and DSD. Right leg ulcer dressed with DSD. Podiatry will continue to follow this pt while inhouse.
[2017-10-27] MEDS: (Novolin N) Insulin Human Isophane (NPH) 100 u/ml 10 ml vial SC SCH (22:00)
[2017-10-27] MEDS ORDERED: (Novolin N) Insulin Human Isophane (NPH) 100 u/ml 10 ml vial SC ONE (22:00)
--- NOTE | 2017-10-27 23:43 | PN ---
DATE: LOCATION: Room 352.This is a 47-year-old male with recent uncontrolled type 2 insulin requiring diabetes, now being followed for metabolic management. His glycemic levels are fluctuating but improved, and the glucose values today have ranged from 114 to 161 mg/dL. His latest chemistry showed a BUN of 16, sodium 139, potassium 4.1, chloride 101, CO2 of 29, and glucose 153. So at this time, we will continue to modify premix and basal insulin as ordered. We will continue the NPH given as 30 units subcu at bedtime daily to start tonight. However, he is going to be n.p.o. overnight, and we will give only half the dose of 15 units at bedtime as a start dose tonight as ordered. He will be kept n.p.o. from midnight, and we will undergo a local debridement of his left foot cellulitis as noted. We will also continue the premix insulin regimen with Novolin 70/30 given as 24 units before breakfast and 16 units before dinner as ordered. We will obtain serial chemistries and supplement accordingly as needed. We will follow. Holly Mckenzie MD
[2017-10-28] MEDS: Piperacill/Tazo 3.375gm in Dex 3.375 GM/50 ML BAG IVPB SCH ×5 (04:45→23:51)
[2017-10-28] MEDS: Dextrose 5%/0.45% NS 1,000 ML IV SCH ×2 (06:13→17:49)
[2017-10-28] MEDS: Sodium Chloride 0.9% 1,000 ML IV SCH ×2 (06:14→16:15)
[2017-10-28 07:36] LABS: BASO # 0.1 K/uL (0.0-0.2); BASO % 1.1 % (0.0-2.0); EOS # 0.2 K/uL (0.0-0.7); EOS % 2.8 % (0.0-4.0); LYMPH # 1.5 K/uL (1.0-4.3); LYMPH % 24.3 % (20.0-40.0); MEAN CELL VOLUME 89.1 fL (80.0-94.0); MEAN CORPUSCULAR HEMOGLOBIN 30.3 pg (27.0-31.0); MEAN PLATELET VOLUME 8.9 fL (7.2-11.7); MONO # 0.4 K/uL (0.0-0.8); MONO % 6.1 % (0.0-10.0); NEUT % 65.7 % (50.0-75.0); RBC 4.62 Mil/uL (4.40-5.90); RED CELL DISTRIBUTION WIDTH 13.5 % (11.5-14.5); WHITE BLOOD COUNT 6.1 K/uL (4.8-10.8)
--- NOTE | 2017-10-28 07:45 | CP.PCM.PN ---
<Ivonne Gómez - Last Filed: 10/28/17 11:41> Subjective - Date & Time of Evaluation Date of Evaluation: 10/28/17 Time of Evaluation: 07:42 - Subjective Subjective: Patient seen and examined at bedside. Patient resting comfortably in bed eating breakfast. Patient has no new complaints at this time. He is tolerating his diet and denies any pain, SOB, n/v/d/c, and lower extremity swelling. Objective - Vital Signs/Intake and Output Vital Signs (last 24 hours): Temp Pulse Resp BP Pulse Ox 98 F 67 20 125/80 94 L 10/28/17 00:00 10/28/17 00:00 10/28/17 00:00 10/28/17 00:00 10/28/17 00:00 Intake and Output: 10/28/17 10/28/17 06:59 18:59 Intake Total 1966 Balance 1966 - Medications Medications: Current Medications Acetaminophen (Tylenol 325mg Tab) 650 mg PO Q6 PRN PRN Reason: Fever >100.4 F Aspirin (Aspirin Chewable) 81 mg PO DAILY [facility] Last Admin: 10/27/17 09:48 Dose: 81 mg Carvedilol (Coreg) 3.125 mg PO BID [facility] Last Admin: 10/27/17 17:35 Dose: 3.125 mg Collagenase (Santyl) 1 gm TOP DAILY [facility] Last Admin: 10/27/17 10:34 Dose: 1 gm Enoxaparin Sodium (Lovenox) 40 mg SC DAILY [facility] Last Admin: 10/27/17 09:49 Dose: 40 mg Sodium Chloride (Sodium Chloride 0.9%) 1,000 mls @ 100 mls/hr IV .Q10H [facility] Last Admin: 10/28/17 06:14 Dose: Not Given Piperacillin Sod/Tazobactam Sod (Zosyn 3.375 Gm Iv Premix) 3.375 gm in 50 mls @ 100 mls/hr IVPB Q6H [facility] Last Admin: 10/28/17 04:45 Dose: 100 mls/hr Vancomycin/Sodium Chloride (Vancomycin 1 Gm/Ns 200 Ml) 1 gm in 200 mls @ 133.333 mls/hr IVPB Q12H [facility] PRN Reason: Protocol Last Admin: 10/27/17 18:53 Dose: 133.333 mls/hr Dextrose/Sodium Chloride (Dextrose 5%/0.45% Ns 1000 Ml) 1,000 mls @ 100 mls/hr IV .Q10H [facility] Last Admin: 10/28/17 06:13 Dose: 100 mls/hr Insulin Human Isoph/Insulin Regular (Novolin 70/30 (70/30 Units/Ml) 10 Ml) 24 units SC ACB [facility] Last Admin: 10/27/17 08:30 Dose: 24 units Insulin Human Isoph/Insulin Regular (Novolin 70/30 (70/30 Units/Ml) 10 Ml) 16 units SC ACD [facility] Last Admin: 10/27/17 17:38 Dose: 16 units Insulin Human NPH (Novolin N) 30 unit SC HS [facility] Last Admin: 10/26/17 22:05 Dose: 30 unit Insulin Human Regular (Novolin R) 0 unit SC ACHS [facility] PRN Reason: Protocol Last Admin: 10/27/17 21:26 Dose: Not Given Losartan Potassium (Cozaar) 50 mg PO DAILY [facility] Last Admin: 10/27/17 14:52 Dose: 50 mg Rosuvastatin Calcium (Crestor) 5 mg PO HS [facility] Last Admin: 10/27/17 21:20 Dose: 5 mg Spironolactone (Aldactone) 25 mg PO DAILY [facility] Last Admin: 10/27/17 14:52 Dose: 25 mg - Labs Labs: 10/28/17 07:26 10/27/17 07:27 PT 10.9 SECONDS (9.7-12.2) 10/26/17 06:09 INR 1.0 10/26/17 06:09 APTT 29 SECONDS (21-34) 10/26/17 06:09 - Additional Findings Additional findings: - Constitutional Appears: Non-toxic, No Acute Distress - Head Exam Head Exam: ATRAUMATIC, NORMAL INSPECTION, NORMOCEPHALIC - Eye Exam Eye Exam: EOMI, Normal appearance, PERRL - ENT Exam ENT Exam: Mucous Membranes Moist - Respiratory Exam Respiratory Exam: Clear to Ausculation Bilateral, NORMAL BREATHING PATTERN. absent: Rales, Rhonchi, Wheezes - Cardiovascular Exam Cardiovascular Exam: RRR, +S1, +S2 - GI/Abdominal Exam GI & Abdominal Exam: Soft, Normal Bowel Sounds. absent: Distended, Tenderness - Extremities Exam Extremities Exam: absent: Calf Tenderness, Pedal Edema Additional comments: LLE: Ulceration of dorsal surface of the left 2nd digit approximately 1 cm x .75 cm with surrounding erythema spreading to distal forefoot; no purulent drainage or mal odor RLE: ulceration of anterior tibia approximately 1.5 cm x 1 cm without surrounding erythema, purulent drainage, or mal odor; 3rd-5th digits amputated with overlying hyperpigmented plaque noted over previous surgical site without erythema, drainage, or mal odor - Neurological Exam Neurological Exam: Alert, Awake, Oriented x3 - Psychiatric Exam Psychiatric exam: Normal Affect, Normal Mood - Skin Skin Exam: Dry, Intact, Normal Color, Warm Assessment and Plan - Assessment and Plan (Free Text) Plan: Disposition: Patient is going for left 2nd digit arthroplasty today (10/28). Diabetic foot ulcer * Dr. Nicholas (ID) consulted, help appreciated * Dr. Soler (podiatry) consulted, help appreciated * 10/28 left 2nd digit arthroplasty with resection of non-viable bone * Dr. Valencia (cardiology) consulted for pre op risk stratification, help appreciated * Wound cultures: Coag neg staph * Blood cultures negative x24H Imaging * Left Foot XR: Interval soft tissue and bone loss at the distal 2nd digit consider infectious or inflammatory process versus postoperative change or posttraumatic etiology. Osteomyelitis is not excluded as discussed above. Similar pattern is seen affecting the distal most segment of the left 5th metatarsal bone and further clinical correlation is advised. Diffuse dorsal foot soft tissue edema as well as at least at the forefoot and midfoot plantar soft tissues as well. * Right Foot XR: Status post interval therefore the 5th transmetatarsal amputation. Mild forefoot and ankle soft tissue edema suggested as discussed above. No overt radiographic sign of osteomyelitis at this time. MRI can be performed for further characterization as clinically warranted as it is more sensitive for osteomyelitis radiography. Degenerative changes 1st and 2nd metatarsophalangeal joints and 2nd digit. * Right Tib/Fib: No radiographic evidence for bony erosion or destruction to suggest osteomyelitis. * CT left foot: 1. At the level of the head of the 2nd proximal phalanx best seen on the sagittal series 602, image 36, there is some mild cortical irregularity at the dorsal aspect of the bony cortex. This is nonspecific and underlying osteomyelitis at this level cannot be excluded. Correlation with MRI and or 3 phase bone scan would be helpful for further evaluation of this region. 2. Cortical irregularity with dysplastic changes noted at the head of the 5th metatarsal bone. This may be the sequelae of chronic postsurgical and/ or chronic osteomyelitic changes and or additional etiology. Superimposed acute osteomyelitic changes cannot entirely be excluded. Clinical correlation. If there is concern for acute osteomyelitis at this level, correlation with MRI and or three-phase bone scan may be helpful if indicated. 3. Bipartite lateral sesamoid bone. 4. Extensive vascular calcifications. 5. Subcutaneous soft tissue swelling and edema seen throughout the visualized foot which may represent underlying cellulitis. Clinical correlation. 6. Mild cortical irregularity along the posterior cortex of the distal tibia and distal fibula, likely chronic. Clinical correlation. * 10/27 arterial doppler: ABIs nondiagnostic due to calcifications of the arterial wall. * Will consider angiogram Meds: * Zosyn 3.375 g Q6H * Vanc 1 g Q12H * Vanc Trough 10/28: 9.3 * repeat on 10/30 * Tylenol prn for fever * Santyl Uncontrolled diabetes * Dr. Mckenzie (Endocrine) consulted, help appreciated * HgbA1c 14.5 * Lipid panel: Trig 118, Chol 154, LDL 105, HDL 26 * TSH: 0.67 * Accuchecks ACHS Meds: * Novolin 70/30 24 units ACB and 16 units ACD * Novolin N 30 units SC HS * Sliding scale insulin * Hold metformin * Crestor 5 mg HS * D5NS 100 cc CHF with biventricular ICD * Coreg 3.125 mg BID * ASA 81 mg QD * Losartan 50 mg QD * Spironolactone 25 mg QD Prophylaxis * Lovenox * GI prophylaxis not indicated <Rohini Canales - Last Filed: 10/29/17 12:45> Objective - Vital Signs/Intake and Output Vital Signs (last 24 hours): Temp Pulse Resp BP Pulse Ox 98.4 F 76 20 136/87 96 10/29/17 07:36 10/29/17 07:36 10/29/17 07:36 10/29/17 07:36 10/29/17 07:36 Intake and Output: 10/29/17 10/29/17 06:59 18:59 Intake Total 1500 Output Total 500 Balance 1000 - Medications Medications: Current Medications Acetaminophen (Tylenol 325mg Tab) 650 mg PO Q6 PRN PRN Reason: Fever >100.4 F Aspirin (Aspirin Chewable) 81 mg PO DAILY [facility] Last Admin: 10/29/17 10:04 Dose: Not Given Carvedilol (Coreg) 3.125 mg PO BID [facility] Last Admin: 10/29/17 10:01 Dose: 3.125 mg Collagenase (Santyl) 1 gm TOP DAILY [facility] Last Admin: 10/29/17 09:44 Dose: Not Given Enoxaparin Sodium (Lovenox) 40 mg SC DAILY [facility] Last Admin: 10/29/17 10:03 Dose: Not Given Sodium Chloride (Sodium Chloride 0.9%) 1,000 mls @ 100 mls/hr IV .Q10H [facility] Last Admin: 10/29/17 06:05 Dose: Not Given Piperacillin Sod/Tazobactam Sod (Zosyn 3.375 Gm Iv Premix) 3.375 gm in 50 mls @ 100 mls/hr IVPB Q6H [facility] Last Admin: 10/29/17 12:04 Dose: 100 mls/hr Vancomycin/Sodium Chloride (Vancomycin 1 Gm/Ns 200 Ml) 1 gm in 200 mls @ 133.333 mls/hr IVPB Q12H [facility] PRN Reason: Protocol Last Admin: 10/29/17 06:06 Dose: 133.333 mls/hr Dextrose/Sodium Chloride (Dextrose 5%/0.45% Ns 1000 Ml) 1,000 mls @ 100 mls/hr IV .Q10H [facility] Last Admin: 10/29/17 03:00 Dose: 100 mls/hr Insulin Human Isoph/Insulin Regular (Novolin 70/30 (70/30 Units/Ml) 10 Ml) 24 units SC ACB [facility] Last Admin: 10/29/17 08:13 Dose: Not Given Insulin Human Isoph/Insulin Regular (Novolin 70/30 (70/30 Units/Ml) 10 Ml) 16 units SC ACD [facility] Last Admin: 10/28/17 17:45 Dose: Not Given Insulin Human NPH (Novolin N) 30 unit SC HS [facility] Last Admin: 10/28/17 22:10 Dose: Not Given Insulin Human Regular (Novolin R) 0 unit SC ACHS [facility] PRN Reason: Protocol Last Admin: 10/29/17 12:01 Dose: Not Given Losartan Potassium (Cozaar) 50 mg PO DAILY [facility] Last Admin: 10/29/17 10:02 Dose: 50 mg Rosuvastatin Calcium (Crestor) 5 mg PO [facility] Last Admin: 10/28/17 21:27 Dose: 5 mg Spironolactone (Aldactone) 25 mg PO DAILY [facility] Last Admin: 10/29/17 10:02 Dose: 25 mg - Labs Labs: 10/29/17 06:15 10/29/17 06:15 PT 10.9 SECONDS (9.7-12.2) 10/26/17 06:09 INR 1.0 10/26/17 06:09 APTT 29 SECONDS (21-34) 10/26/17 06:09 Attending/Attestation - Attestation I have personally seen and examined this patient.: Yes I have fully participated in the care of the patient.: Yes I have reviewed all pertinent clinical information, including history, physical exam and plan: Yes Notes (Text): This is a 47 year old male with past medical history of uncontrolled diabetes, hx of diabetic foot ulcer, HTN, CHF with biventricular ICD placement is admitted for diabetic foot ulcer of the left 2nd toe. patient was seen and examined by me,lying comfortable. 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 Uncontrolled diabetes-continue insulin as per Dr Mckenzie.Discussed about sugar control after discharge 3.Noncompliance with medication and follow up 4.chronic Severe systolic heart failure with biventricular ICD-Spoke to Dr Valencia.meds adjusted.CHF stable Patient was seen and examined by me ,Discussed with the resident. I agree with documentation of the resident's assessment and the plan
[2017-10-28] MEDS: (Novolin R) Insulin Human Regular 100 units/ml vial SC SCH ×4 (07:49→22:00)
[2017-10-28] MEDS: (Novolin 70/30) NPH/Regular 70/30 Units/ml 10 ml vial SC SCH ×2 (08:03→17:45)
[2017-10-28 08:14] LABS: BLOOD UREA NITROGEN 12 mg/dL (9-20); CALCIUM 8.6 mg/dl (8.6-10.4); GFR AFRICAN-AMERICAN > 60; GFR NON-AFRICAN AMERICAN > 60
[2017-10-28] MEDS: Vancomycin 1 gm/NS 200 ml 1 GM/200 ML BAG IVPB SCH ×2 (09:21→19:00)
[2017-10-28] MEDS: Collagenase 250 Units/gm Ointment(30 gm) TOP SCH (09:25)
--- NOTE | 2017-10-28 15:11 | CP.PCM.PN ---
Subjective - Date & Time of Evaluation Date of Evaluation: 10/28/17 Time of Evaluation: 15:11 - Subjective Subjective: 47 y/o male seen at bedside prior to OR this afternoon for left foot 2nd digit arthroplasty. Denies F/C/N/V/CP/SOB, denies any acute events overnight. Confirms NPO status after breakfast today. Objective - Vital Signs/Intake and Output Vital Signs (last 24 hours): Temp Pulse Resp BP Pulse Ox 98.1 F 76 20 147/87 95 10/28/17 08:00 10/28/17 08:00 10/28/17 08:00 10/28/17 08:00 10/28/17 08:00 Intake and Output: 10/28/17 10/28/17 06:59 18:59 Intake Total 1966 Balance 1966 - Medications Medications: Current Medications Acetaminophen (Tylenol 325mg Tab) 650 mg PO Q6 PRN PRN Reason: Fever >100.4 F Aspirin (Aspirin Chewable) 81 mg PO DAILY [facility] Last Admin: 10/27/17 09:48 Dose: 81 mg Carvedilol (Coreg) 3.125 mg PO BID [facility] Last Admin: 10/28/17 09:24 Dose: 3.125 mg Collagenase (Santyl) 1 gm TOP DAILY [facility] Last Admin: 10/28/17 09:25 Dose: 1 gm Enoxaparin Sodium (Lovenox) 40 mg SC DAILY [facility] Last Admin: 10/27/17 09:49 Dose: 40 mg Sodium Chloride (Sodium Chloride 0.9%) 1,000 mls @ 100 mls/hr IV .Q10H [facility] Last Admin: 10/28/17 06:14 Dose: Not Given Piperacillin Sod/Tazobactam Sod (Zosyn 3.375 Gm Iv Premix) 3.375 gm in 50 mls @ 100 mls/hr IVPB Q6H [facility] Last Admin: 10/28/17 12:26 Dose: 100 mls/hr Vancomycin/Sodium Chloride (Vancomycin 1 Gm/Ns 200 Ml) 1 gm in 200 mls @ 133.333 mls/hr IVPB Q12H [facility] PRN Reason: Protocol Last Admin: 10/28/17 09:21 Dose: 133.333 mls/hr Dextrose/Sodium Chloride (Dextrose 5%/0.45% Ns 1000 Ml) 1,000 mls @ 100 mls/hr IV .Q10H [facility] Last Admin: 10/28/17 06:13 Dose: 100 mls/hr Insulin Human Isoph/Insulin Regular (Novolin 70/30 (70/30 Units/Ml) 10 Ml) 24 units SC ACB [facility] Last Admin: 10/28/17 08:03 Dose: 24 units Insulin Human Isoph/Insulin Regular (Novolin 70/30 (70/30 Units/Ml) 10 Ml) 16 units SC ACD [facility] Last Admin: 10/27/17 17:38 Dose: 16 units Insulin Human NPH (Novolin N) 30 unit SC HS [facility] Last Admin: 10/26/17 22:05 Dose: 30 unit Insulin Human Regular (Novolin R) 0 unit SC ACHS [facility] PRN Reason: Protocol Last Admin: 10/28/17 12:23 Dose: Not Given Losartan Potassium (Cozaar) 50 mg PO DAILY [facility] Last Admin: 10/28/17 09:24 Dose: 50 mg Rosuvastatin Calcium (Crestor) 5 mg PO HS [facility] Last Admin: 10/27/17 21:20 Dose: 5 mg Spironolactone (Aldactone) 25 mg PO DAILY [facility] Last Admin: 10/28/17 09:24 Dose: 25 mg - Labs Labs: 10/28/17 07:26 10/28/17 07:26 PT 10.9 SECONDS (9.7-12.2) 10/26/17 06:09 INR 1.0 10/26/17 06:09 APTT 29 SECONDS (21-34) 10/26/17 06:09 Assessment and Plan - Assessment and Plan (Free Text) Assessment: 47 y/o male with left foot 2nd digit ulceration Plan: Diet resumed Surgery rescheduled for tomorrow at approx 1pm Anticoagulant remains on hold NPO after midnight Will continue to follow patient while in house
[2017-10-28] MEDS ORDERED: Lidocaine 2% MPF (5 ml) Inj ONE (17:51)
[2017-10-28] MEDS ORDERED: Bupivacaine HCl 0.5% PF (30 ml) Inj ONE (17:51)
[2017-10-28] MEDS: (Novolin N) Insulin Human Isophane (NPH) 100 u/ml 10 ml vial SC SCH (22:10)
[2017-10-28] MEDS ORDERED: (Novolin N) Insulin Human Isophane (NPH) 100 u/ml 10 ml vial SC ONE (22:15)
[2017-10-29] MEDS: Dextrose 5%/0.45% NS 1,000 ML IV SCH ×2 (03:00→13:22)
[2017-10-29] MEDS: Piperacill/Tazo 3.375gm in Dex 3.375 GM/50 ML BAG IVPB SCH ×4 (05:20→23:42)
--- NOTE | 2017-10-29 05:58 | PN ---
DATE: SUBJECTIVE: history of type 2 insulin requiring diabetes, now being followed closely for metabolic management. The latest chemistry shows a BUN of 12, sodium 140, potassium 4.2, chloride 105, CO2 of 28, glucose . At this time, we will modify Novolin 70/30 We will continue the basal insulin . Holly Mckenzie MD
[2017-10-29] MEDS: Sodium Chloride 0.9% 1,000 ML IV SCH ×3 (06:05→21:36)
[2017-10-29] MEDS: Vancomycin 1 gm/NS 200 ml 1 GM/200 ML BAG IVPB SCH ×2 (06:06→18:34)
[2017-10-29 06:21] LABS: BASO # 0.1 K/uL (0.0-0.2); BASO % 1.3 % (0.0-2.0); EOS # 0.2 K/uL (0.0-0.7); EOS % 3.3 % (0.0-4.0); HEMOGLOBIN 13.3 g/dL (12.0-18.0); LYMPH # 1.4 K/uL (1.0-4.3); LYMPH % 25.7 % (20.0-40.0); MEAN CELL VOLUME 88.9 fL (80.0-94.0); MEAN CORPUSCULAR HEMOGLOBIN 30.9 pg (27.0-31.0); MEAN CORPUSCULAR HGB CONC 34.8 g/dL (33.0-37.0); MEAN PLATELET VOLUME 8.6 fL (7.2-11.7); MONO # 0.4 K/uL (0.0-0.8); MONO % 6.9 % (0.0-10.0); NEUT # 3.5 K/uL (1.8-7.0); NEUT % 62.8 % (50.0-75.0); NRBC % 0.1 % (0.0-2.0); RBC 4.31 Mil/uL (4.40-5.90); RED CELL DISTRIBUTION WIDTH 13.4 % (11.5-14.5); WHITE BLOOD COUNT 5.6 K/uL (4.8-10.8)
[2017-10-29 06:38] LABS: BLOOD UREA NITROGEN 12 mg/dL (9-20); CALCIUM 8.6 mg/dl (8.6-10.4); GFR AFRICAN-AMERICAN > 60; GFR NON-AFRICAN AMERICAN > 60
--- NOTE | 2017-10-29 08:08 | CP.PCM.PN ---
Subjective - Date & Time of Evaluation Date of Evaluation: 10/29/17 Time of Evaluation: 08:08 - Subjective Subjective: Cardiology Progress Note Patient seen and examined at bedside. Patient denies any chest pain, dyspnea, or palpitations. Nurse reports no events overnight. Patient NPO for surgery to be performed at noon. Objective - Vital Signs/Intake and Output Vital Signs (last 24 hours): Temp Pulse Resp BP Pulse Ox 98.4 F 76 20 136/87 96 10/29/17 07:36 10/29/17 07:36 10/29/17 07:36 10/29/17 07:36 10/29/17 07:36 Intake and Output: 10/29/17 10/29/17 06:59 18:59 Intake Total 1500 Output Total 500 Balance 1000 - Medications Medications: Current Medications Acetaminophen (Tylenol 325mg Tab) 650 mg PO Q6 PRN PRN Reason: Fever >100.4 F Aspirin (Aspirin Chewable) 81 mg PO DAILY [facility] Last Admin: 10/27/17 09:48 Dose: 81 mg Carvedilol (Coreg) 3.125 mg PO BID [facility] Last Admin: 10/28/17 17:45 Dose: Not Given Collagenase (Santyl) 1 gm TOP DAILY [facility] Last Admin: 10/28/17 09:25 Dose: 1 gm Enoxaparin Sodium (Lovenox) 40 mg SC DAILY [facility] Last Admin: 10/27/17 09:49 Dose: 40 mg Sodium Chloride (Sodium Chloride 0.9%) 1,000 mls @ 100 mls/hr IV .Q10H [facility] Last Admin: 10/29/17 06:05 Dose: Not Given Piperacillin Sod/Tazobactam Sod (Zosyn 3.375 Gm Iv Premix) 3.375 gm in 50 mls @ 100 mls/hr IVPB Q6H [facility] Last Admin: 10/29/17 05:20 Dose: 100 mls/hr Vancomycin/Sodium Chloride (Vancomycin 1 Gm/Ns 200 Ml) 1 gm in 200 mls @ 133.333 mls/hr IVPB Q12H [facility] PRN Reason: Protocol Last Admin: 10/29/17 06:06 Dose: 133.333 mls/hr Dextrose/Sodium Chloride (Dextrose 5%/0.45% Ns 1000 Ml) 1,000 mls @ 100 mls/hr IV .Q10H [facility] Last Admin: 10/29/17 03:00 Dose: 100 mls/hr Insulin Human Isoph/Insulin Regular (Novolin 70/30 (70/30 Units/Ml) 10 Ml) 24 units SC ACB [facility] Last Admin: 10/28/17 08:03 Dose: 24 units Insulin Human Isoph/Insulin Regular (Novolin 70/30 (70/30 Units/Ml) 10 Ml) 16 units SC ACD [facility] Last Admin: 10/28/17 17:45 Dose: Not Given Insulin Human NPH (Novolin N) 30 unit SC HS [facility] Last Admin: 10/28/17 22:10 Dose: Not Given Insulin Human Regular (Novolin R) 0 unit SC ACHS [facility] PRN Reason: Protocol Last Admin: 10/28/17 22:00 Dose: Not Given Losartan Potassium (Cozaar) 50 mg PO DAILY [facility] Rosuvastatin Calcium (Crestor) 5 mg PO HS [facility] Last Admin: 10/28/17 21:27 Dose: 5 mg Spironolactone (Aldactone) 25 mg PO DAILY [facility] Last Admin: 10/28/17 09:24 Dose: 25 mg - Labs Labs: 10/29/17 06:15 10/29/17 06:15 PT 10.9 SECONDS (9.7-12.2) 10/26/17 06:09 INR 1.0 10/26/17 06:09 APTT 29 SECONDS (21-34) 10/26/17 06:09 - Constitutional Appears: Well, Non-toxic - Head Exam Head Exam: ATRAUMATIC, NORMOCEPHALIC - Eye Exam Eye Exam: EOMI, Normal appearance - ENT Exam ENT Exam: Mucous Membranes Moist, Normal Oropharynx - Neck Exam Neck Exam: Normal Inspection - Respiratory Exam Respiratory Exam: Clear to Ausculation Bilateral, NORMAL BREATHING PATTERN. absent: Accessory Muscle Use - Cardiovascular Exam Cardiovascular Exam: RRR, +S1, +S2 - GI/Abdominal Exam GI & Abdominal Exam: Soft, Normal Bowel Sounds - Extremities Exam Extremities Exam: Normal Capillary Refill, Normal Inspection. absent: Calf Tenderness - Back Exam Back Exam: NORMAL INSPECTION - Neurological Exam Neurological Exam: Alert, Awake, Oriented x3 - Psychiatric Exam Psychiatric exam: Normal Affect, Normal Mood - Skin Skin Exam: Dry, Intact, Normal Color, Warm Assessment and Plan - Assessment and Plan (Free Text) Assessment: 47 year old male with a past medical history of uncontrolled DM, non- ischemic cardiomyopathy with severe left ventricular systolic dysfunction, s/p biventricular pacemaker, with podiatry planning for potential 2nd digit arthroplasty with resection of non-viable adjacent bone who cardiology was consulted for cardiac risk stratification for the aforementioned, non-cardiac surgery. Echocardiogram showed left ventricular function is markedly reduced with diffuse hypokinesis. There is akinesis of the basal-inferiolateral and septal jordan. The left ventricular ejecton fraction is estimated to be 25%. There is borderline mild concentric LVH. The left ventricle is moderately dilated. Plan: Cardiac risk stratification: According to the 2014 AHA/ACC guidelines on preoperative risk assessment in a patient undergoing a noncardiac sugery, this patient is considered low risk for a low risk procedure. Guideline directed Medical therapy for non-ischemic cardiomyopathy with an estimated EF of 30% with Losartan 50 mg PO daily as well as Spirinolactone 25 mg PO daily. Patient to follow up with Dr. Valencia within one week of discharge to continue monitoring clinically and adjust medications as appropriate. We will continue to follow with you. Case reviewed and discussed with Dr. Valencia
[2017-10-29] MEDS: (Novolin 70/30) NPH/Regular 70/30 Units/ml 10 ml vial SC SCH ×2 (08:13→17:00)
[2017-10-29] MEDS: (Novolin R) Insulin Human Regular 100 units/ml vial SC SCH ×5 (08:14→21:35)
[2017-10-29] MEDS: Collagenase 250 Units/gm Ointment(30 gm) TOP SCH (09:44)
[2017-10-29] MEDS: Enoxaparin 40 mg Syringe SC SCH (10:03)
[2017-10-29] MEDS ORDERED: Bupivacaine HCl 0.5% PF (10 ml) Inj ONE (14:36)
[2017-10-29] MEDS ORDERED: Lidocaine 2% MPF (5 ml) Inj ONE (14:36)
[2017-10-29] MEDS ORDERED: Midazolam 2 MG/2 ML VIAL ONE ×2 (14:36→14:39)
[2017-10-29] MEDS ORDERED: HYDROmorphone 0.5 mg/0.5 ml ISec IVP PRN (15:23)
[2017-10-29] MEDS ORDERED: Oxycodone/Acetaminophen 5/325 mg Tab PO PRN (15:25)
[2017-10-29 17:12] VITALS: RESP 20
--- NOTE | 2017-10-29 19:09 | CP.PCM.PN ---
<Nay Bonds E - Last Filed: 10/29/17 19:04> Subjective - Date & Time of Evaluation Date of Evaluation: 10/29/17 Time of Evaluation: 07:25 - Subjective Subjective: Medicine progress note ( Dr. Canales's service) Patient was seen and examined at bedside. Patient was resting comfortably in bed. Patient is aware that he needs to be on his insulin as instructed. Patient denies chest pain, palpitation, SOB, chills, diaphoresis, nausea, vomiting, fever, and abdominal pain. Patient is aware that he is having Left 2nd toe arthoplasty. Objective - Vital Signs/Intake and Output Vital Signs (last 24 hours): Temp Pulse Resp BP Pulse Ox 97.9 F 66 20 145/88 97 10/29/17 17:08 10/29/17 17:08 10/29/17 17:08 10/29/17 17:08 10/29/17 17:08 Intake and Output: 10/29/17 10/30/17 18:59 06:59 Intake Total 900 Balance 900 - Medications Medications: Current Medications Acetaminophen (Tylenol 325mg Tab) 650 mg PO Q6 PRN PRN Reason: Fever >100.4 F Aspirin (Aspirin Chewable) 81 mg PO DAILY [facility] Last Admin: 10/29/17 10:04 Dose: Not Given Carvedilol (Coreg) 3.125 mg PO BID [facility] Last Admin: 10/29/17 18:01 Dose: 3.125 mg Collagenase (Santyl) 1 gm TOP DAILY [facility] Last Admin: 10/29/17 09:44 Dose: Not Given Enoxaparin Sodium (Lovenox) 40 mg SC DAILY [facility] Last Admin: 10/29/17 10:03 Dose: Not Given Sodium Chloride (Sodium Chloride 0.9%) 1,000 mls @ 100 mls/hr IV .Q10H [facility] Last Admin: 10/29/17 13:23 Dose: Not Given Piperacillin Sod/Tazobactam Sod (Zosyn 3.375 Gm Iv Premix) 3.375 gm in 50 mls @ 100 mls/hr IVPB Q6H [facility] Last Admin: 10/29/17 17:50 Dose: 100 mls/hr Vancomycin/Sodium Chloride (Vancomycin 1 Gm/Ns 200 Ml) 1 gm in 200 mls @ 133.333 mls/hr IVPB Q12H [facility] PRN Reason: Protocol Last Admin: 10/29/17 18:34 Dose: 133.333 mls/hr Dextrose/Sodium Chloride (Dextrose 5%/0.45% Ns 1000 Ml) 1,000 mls @ 100 mls/hr IV .Q10H [facility] Last Admin: 10/29/17 13:22 Dose: Not Given Insulin Human Isoph/Insulin Regular (Novolin 70/30 (70/30 Units/Ml) 10 Ml) 24 units SC ACB [facility] Last Admin: 10/29/17 08:13 Dose: Not Given Insulin Human Isoph/Insulin Regular (Novolin 70/30 (70/30 Units/Ml) 10 Ml) 16 units SC ACD [facility] Last Admin: 10/29/17 17:00 Dose: 16 units Insulin Human NPH (Novolin N) 30 unit SC HS [facility] Last Admin: 10/28/17 22:10 Dose: Not Given Insulin Human Regular (Novolin R) 0 unit SC ACHS [facility] PRN Reason: Protocol Last Admin: 10/29/17 18:00 Dose: Not Given Losartan Potassium (Cozaar) 50 mg PO DAILY [facility] Last Admin: 10/29/17 10:02 Dose: 50 mg Oxycodone/Acetaminophen (Percocet 5/325 Mg Tab) 1 tab PO Q4H PRN PRN Reason: Pain, moderate (4-7) Stop: 11/01/17 15:26 Rosuvastatin Calcium (Crestor) 5 mg PO [facility] Last Admin: 10/28/17 21:27 Dose: 5 mg Spironolactone (Aldactone) 25 mg PO DAILY [facility] Last Admin: 10/29/17 10:02 Dose: 25 mg - Labs Labs: 10/29/17 06:15 10/29/17 06:15 PT 10.9 SECONDS (9.7-12.2) 10/26/17 06:09 INR 1.0 10/26/17 06:09 APTT 29 SECONDS (21-34) 10/26/17 06:09 - Constitutional Appears: Well, No Acute Distress - Head Exam Head Exam: ATRAUMATIC, NORMAL INSPECTION - Eye Exam Eye Exam: EOMI, Normal appearance - ENT Exam ENT Exam: Mucous Membranes Moist - Respiratory Exam Respiratory Exam: Clear to Ausculation Bilateral, NORMAL BREATHING PATTERN. absent: Prolonged Expiratory Phase, Rhonchi, Wheezes, Respiratory Distress - Cardiovascular Exam Cardiovascular Exam: REGULAR RHYTHM, +S1, +S2. absent: Murmur - GI/Abdominal Exam GI & Abdominal Exam: Soft, Normal Bowel Sounds. absent: Distended, Firm, Guarding, Rigid, Tenderness - Extremities Exam Extremities Exam: Normal Inspection - Neurological Exam Neurological Exam: Alert, Awake, Oriented x3 - Psychiatric Exam Psychiatric exam: Normal Affect, Normal Mood Assessment and Plan (1) Diabetic ulcer of left foot Assessment & Plan: Dr. Nicholas (ID) consulted, help appreciated * Dr. Soler (podiatry) consulted, help appreciated * 10/29: Plans for left 2nd digit arthroplasty with resection of non-viable bone * Dr. Valencia (cardiology) consulted for pre op risk stratification, help appreciated * Wound cultures: Coag neg staph * Blood cultures negative x24H Imaging * Left Foot XR: Interval soft tissue and bone loss at the distal 2nd digit consider infectious or inflammatory process versus postoperative change or posttraumatic etiology. Osteomyelitis is not excluded as discussed above. Similar pattern is seen affecting the distal most segment of the left 5th metatarsal bone and further clinical correlation is advised. Diffuse dorsal foot soft tissue edema as well as at least at the forefoot and midfoot plantar soft tissues as well. * Right Foot XR: Status post interval therefore the 5th transmetatarsal amputation. Mild forefoot and ankle soft tissue edema suggested as discussed above. No overt radiographic sign of osteomyelitis at this time. MRI can be performed for further characterization as clinically warranted as it is more sensitive for osteomyelitis radiography. Degenerative changes 1st and 2nd metatarsophalangeal joints and 2nd digit. * Right Tib/Fib: No radiographic evidence for bony erosion or destruction to suggest osteomyelitis. * CT left foot: 1. At the level of the head of the 2nd proximal phalanx best seen on the sagittal series 602, image 36, there is some mild cortical irregularity at the dorsal aspect of the bony cortex. This is nonspecific and underlying osteomyelitis at this level cannot be excluded. Correlation with MRI and or 3 phase bone scan would be helpful for further evaluation of this region. 2. Cortical irregularity with dysplastic changes noted at the head of the 5th metatarsal bone. This may be the sequelae of chronic postsurgical and/ or chronic osteomyelitic changes and or additional etiology. Superimposed acute osteomyelitic changes cannot entirely be excluded. Clinical correlation. If there is concern for acute osteomyelitis at this level, correlation with MRI and or three-phase bone scan may be helpful if indicated. 3. Bipartite lateral sesamoid bone. 4. Extensive vascular calcifications. 5. Subcutaneous soft tissue swelling and edema seen throughout the visualized foot which may represent underlying cellulitis. Clinical correlation. 6. Mild cortical irregularity along the posterior cortex of the distal tibia and distal fibula, likely chronic. Clinical correlation. * 10/27 arterial doppler: ABIs nondiagnostic due to calcifications of the arterial wall. * Will consider angiogram Meds: * Zosyn 3.375 g Q6H * Vanc 1 g Q12H * Vanc Trough 10/28: 9.3 * repeat on 10/30 * Tylenol prn for fever * Santyl Status: Acute (2) Uncontrolled diabetes mellitus Assessment & Plan: * Dr. Mckenzie (Endocrine) consulted, help appreciated * HgbA1c 14.5 * Lipid panel: Trig 118, Chol 154, LDL 105, HDL 26 * TSH: 0.67 * Accuchecks ACHS Meds: * Novolin 70/30 24 units ACB and 16 units ACD * Novolin N 30 units SC HS * Sliding scale insulin * Hold metformin * Crestor 5 mg HS * D5NS 100 cc Status: Chronic (3) CHF (congestive heart failure) Assessment & Plan: With AICD Echocardiogram (10/25/17): showed left ventricular function is markedly reduced with diffuse hypokinesis. There is akinesis of the basal-inferiolateral and septal jordan. The left ventricular ejecton fraction is estimated to be 25%. There is borderline mild concentric LVH. The left ventricle is moderately dilated. * Coreg 3.125 mg BID * ASA 81 mg QD * Losartan 50 mg QD * Spironolactone 25 mg QD Status: Chronic (4) Prophylactic measure Assessment & Plan: * DVT: Lovenox 40mg SC daily * GI prophylaxis not indicated All plans and management discussed with Dr. Canales Status: Acute <Rohini Canales - Last Filed: 11/01/17 08:22> Objective - Vital Signs/Intake and Output Vital Signs (last 24 hours): Temp Pulse Resp BP Pulse Ox 98.2 F 76 20 148/83 96 11/01/17 07:50 11/01/17 07:50 11/01/17 07:50 11/01/17 00:00 11/01/17 07:50 Intake and Output: 04/30/18 04/30/18 06:59 18:59 Intake Total 400 Balance 400 - Medications Medications: Current Medications Acetaminophen (Tylenol 325mg Tab) 650 mg PO Q6 PRN PRN Reason: Fever >100.4 F Aspirin (Aspirin Chewable) 81 mg PO DAILY [facility] Last Admin: 10/31/17 09:14 Dose: 81 mg Carvedilol (Coreg) 3.125 mg PO BID [facility] Last Admin: 10/31/17 17:45 Dose: 3.125 mg Collagenase (Santyl) 1 gm TOP DAILY [facility] Last Admin: 10/31/17 09:13 Dose: 1 gm Enoxaparin Sodium (Lovenox) 40 mg SC DAILY [facility] Last Admin: 10/31/17 09:13 Dose: 40 mg Piperacillin Sod/Tazobactam Sod (Zosyn 3.375 Gm Iv Premix) 3.375 gm in 50 mls @ 100 mls/hr IVPB Q6H [facility] Last Admin: 11/01/17 04:51 Dose: 100 mls/hr Vancomycin HCl 1,500 mg/ (Sodium Chloride) 500 mls @ 166.6 mls/hr IVPB Q24H [facility] PRN Reason: Protocol Last Admin: 10/31/17 18:26 Dose: 166.6 mls/hr Insulin Human Isoph/Insulin Regular (Novolin 70/30 (70/30 Units/Ml) 10 Ml) 10 units SC ACD [facility] Insulin Human Isoph/Insulin Regular (Novolin 70/30 (70/30 Units/Ml) 10 Ml) 20 units SC ACB [facility] Insulin Human NPH (Novolin N) 20 unit SC HS [facility] Insulin Human Regular (Novolin R) 0 unit SC ACHS [facility] PRN Reason: Protocol Last Admin: 11/01/17 07:39 Dose: Not Given Losartan Potassium (Cozaar) 50 mg PO DAILY [facility] Last Admin: 10/31/17 09:14 Dose: 50 mg Oxycodone/Acetaminophen (Percocet 5/325 Mg Tab) 1 tab PO Q4H PRN PRN Reason: Pain, moderate (4-7) Stop: 11/01/17 15:26 Rosuvastatin Calcium (Crestor) 5 mg PO HS [facility] Last Admin: 10/31/17 21:31 Dose: 5 mg Spironolactone (Aldactone) 25 mg PO DAILY [facility] Last Admin: 10/31/17 09:14 Dose: 25 mg - Labs Labs: 11/01/17 07:13 11/01/17 07:13 PT 10.9 SECONDS (9.7-12.2) 10/26/17 06:09 INR 1.0 10/26/17 06:09 APTT 29 SECONDS (21-34) 10/26/17 06:09 Attending/Attestation - Attestation I have personally seen and examined this patient.: Yes I have fully participated in the care of the patient.: Yes I have reviewed all pertinent clinical information, including history, physical exam and plan: Yes Notes (Text): Patient was seen and examined . No complain. This a 47 years male with poorly controlled DM,HTN ,CHF and s/p biventricular ICD came for foot infection. Patient is noncompliance with his meds and monitoring sugar.CT with irregularity of bone r/o osteo 2nd toe s/p Left 2nd toe arthroplasty. continue antibiotics,sugar control and wound care by cost estimator.We will discuss with Dr Nicholas about the duration of antibiotics I agree with the resident's documentation of the assessment and the pln
[2017-10-29] MEDS: (Novolin N) Insulin Human Isophane (NPH) 100 u/ml 10 ml vial SC SCH (21:34)
[2017-10-30] MEDS: Piperacill/Tazo 3.375gm in Dex 3.375 GM/50 ML BAG IVPB SCH ×4 (05:29→23:48)
[2017-10-30 06:59] LABS: BASO % 0.6 % (0.0-2.0); EOS # 0.2 K/uL (0.0-0.7); HEMOGLOBIN 15.4 g/dL (12.0-18.0); LYMPH # 1.5 K/uL (1.0-4.3); LYMPH % 20.4 % (20.0-40.0); MEAN CELL VOLUME 89.5 fL (80.0-94.0); MEAN CORPUSCULAR HEMOGLOBIN 30.8 pg (27.0-31.0); MEAN CORPUSCULAR HGB CONC 34.4 g/dL (33.0-37.0); MEAN PLATELET VOLUME 8.5 fL (7.2-11.7); MONO # 0.6 K/uL (0.0-0.8); MONO % 7.6 % (0.0-10.0); NEUT # 5.2 K/uL (1.8-7.0); NEUT % 69.4 % (50.0-75.0); NRBC % 0.6 % (0.0-2.0); RBC 4.99 Mil/uL (4.40-5.90); RED CELL DISTRIBUTION WIDTH 13.8 % (11.5-14.5); WHITE BLOOD COUNT 7.5 K/uL (4.8-10.8)
[2017-10-30] MEDS: Vancomycin 1 gm/NS 200 ml 1 GM/200 ML BAG IVPB SCH ×3 (07:53→19:30)
[2017-10-30 07:56] LABS: ALB/GLOB RATIO 0.8 (1.0-2.1); ALBUMIN 3.1 g/dL (3.5-5.0); ALT/SGPT 10 U/L (21-72); AST/SGOT 31 U/L (17-59); BLOOD UREA NITROGEN 11 mg/dL (9-20); CALCIUM 8.7 mg/dl (8.6-10.4); GFR AFRICAN-AMERICAN > 60; GFR NON-AFRICAN AMERICAN > 60
[2017-10-30] MEDS: (Novolin R) Insulin Human Regular 100 units/ml vial SC SCH ×4 (08:24→21:46)
[2017-10-30] MEDS: (Novolin 70/30) NPH/Regular 70/30 Units/ml 10 ml vial SC SCH ×2 (08:30→17:39)
[2017-10-30] MEDS: Sodium Chloride 0.9% 1,000 ML IV SCH ×2 (09:01→17:44)
[2017-10-30] MEDS: Collagenase 250 Units/gm Ointment(30 gm) TOP SCH (09:57)
[2017-10-30] MEDS: Enoxaparin 40 mg Syringe SC SCH (09:57)
[2017-10-30] MEDS ORDERED: Potassium Chloride 20 mEq ER Tab PO ONE ×2 (09:58→11:30)
[2017-10-30] MEDS ORDERED: Albuterol-Ipratrop 3 mg / 0.5 (3 ml) UD INH ONE (10:29)
--- NOTE | 2017-10-30 12:20 | CP.PCM.PN ---
Subjective - Date & Time of Evaluation Date of Evaluation: 10/30/17 Time of Evaluation: 12:20 - Subjective Subjective: 47 y/o male seen at bedside 1 day s/p left 2nd digit arthroplasty surgery to address 2nd digit ulceration. Pt admits to very mild pain in the left foot, well controlled by meds. Denies any acute events overnight. Denies F/C/N/V/CP/ SOB. Admits to keeping the dressing clean dry and intact. Objective - Vital Signs/Intake and Output Vital Signs (last 24 hours): Temp Pulse Resp BP Pulse Ox 98.9 F 69 20 144/83 95 10/30/17 08:00 10/30/17 08:00 10/30/17 08:00 10/30/17 08:00 10/30/17 08:00 Intake and Output: 10/30/17 10/30/17 06:59 18:59 Intake Total 300 Balance 300 - Medications Medications: Current Medications Acetaminophen (Tylenol 325mg Tab) 650 mg PO Q6 PRN PRN Reason: Fever >100.4 F Aspirin (Aspirin Chewable) 81 mg PO DAILY [facility] Last Admin: 10/30/17 09:57 Dose: 81 mg Carvedilol (Coreg) 3.125 mg PO BID [facility] Last Admin: 10/30/17 09:57 Dose: 3.125 mg Collagenase (Santyl) 1 gm TOP DAILY [facility] Last Admin: 10/30/17 09:57 Dose: 1 gm Enoxaparin Sodium (Lovenox) 40 mg SC DAILY [facility] Last Admin: 10/30/17 09:57 Dose: 40 mg Sodium Chloride (Sodium Chloride 0.9%) 1,000 mls @ 100 mls/hr IV .Q10H [facility] Last Admin: 10/30/17 09:01 Dose: 100 mls/hr Piperacillin Sod/Tazobactam Sod (Zosyn 3.375 Gm Iv Premix) 3.375 gm in 50 mls @ 100 mls/hr IVPB Q6H [facility] Last Admin: 10/30/17 12:00 Dose: 100 mls/hr Vancomycin/Sodium Chloride (Vancomycin 1 Gm/Ns 200 Ml) 1 gm in 200 mls @ 133.333 mls/hr IVPB Q12H [facility] PRN Reason: Protocol Last Admin: 10/30/17 09:00 Dose: 133.333 mls/hr Insulin Human Isoph/Insulin Regular (Novolin 70/30 (70/30 Units/Ml) 10 Ml) 24 units SC ACB [facility] Last Admin: 10/30/17 08:30 Dose: 24 units Insulin Human Isoph/Insulin Regular (Novolin 70/30 (70/30 Units/Ml) 10 Ml) 16 units SC ACD [facility] Last Admin: 10/29/17 17:00 Dose: 16 units Insulin Human NPH (Novolin N) 30 unit SC HS [facility] Last Admin: 10/29/17 21:34 Dose: 30 unit Insulin Human Regular (Novolin R) 0 unit SC ACHS [facility] PRN Reason: Protocol Last Admin: 10/30/17 11:52 Dose: Not Given Losartan Potassium (Cozaar) 50 mg PO DAILY [facility] Last Admin: 10/30/17 09:57 Dose: 50 mg Oxycodone/Acetaminophen (Percocet 5/325 Mg Tab) 1 tab PO Q4H PRN PRN Reason: Pain, moderate (4-7) Stop: 11/01/17 15:26 Rosuvastatin Calcium (Crestor) 5 mg PO [facility] Last Admin: 10/28/17 21:27 Dose: 5 mg Spironolactone (Aldactone) 25 mg PO DAILY [facility] Last Admin: 10/30/17 09:57 Dose: 25 mg - Labs Labs: 10/30/17 06:45 10/30/17 06:45 PT 10.9 SECONDS (9.7-12.2) 10/26/17 06:09 INR 1.0 10/26/17 06:09 APTT 29 SECONDS (21-34) 10/26/17 06:09 - Constitutional Appears: Well, Non-toxic, No Acute Distress - Extremities Exam Additional comments: Lower extremity focused exam: Vasc: DP/PT pulses 1/4 B/L. Temperature gradient warm to cool B/L. CFT < 3 sec x 7 digits. Derm: Left - surgical incision site noted to dorsum of 2nd digit extending to metatarsal head proximally. Sutures intact with skin edges well-coapted and no signs of dehiscence. Digit exhibits mild erythema surrounding surgical site. No active drainage, no malodor, no fluctuance. Right- Anterior partial thickness ulceration noted to anterior ridge of tibial at mildly 1/3 of tibia measuring 1.6 x 0.8 cm with a fibrotic wound base. No sheryl-wound erythema, no malodor, no acute signs if infection. No undermining or raised margins. Hyperpigmented scaling plaque noted to dorsolateral forefoot at site of prior digital amputations 3-5, absent irregular margins. Hyperkeratosis is stably adhered to dermal base. NEURO: Protective sensation greatly diminished to forefoot and midfoot. ORTHO: No tenderness to palpation of left foot 2nd digit at surgical site. Right foot 3rd-5th ray amputation sites noted. MMT reveals pedal and lower leg group muscle strength is graded 5/5. Assessment and Plan - Assessment and Plan (Free Text) Assessment: 47 y/o male 1) left foot dorsal 2nd digit diabetic ulceration, 1 day s/p left 2nd digit arthroplasty for correction of deformity causing pressure ulceration and 2) right anterior tibia ulceration Plan: Pt seen and evaluated at bedside Discussed with attending Dr. Soler Pt is afebrile, WBC 7.5 Wounds cleansed with saline L 2nd digit surgical site dressed with betadine and DSD R anterior tibial wound dressed with Santyl and DSD Pt is stable from podiatry standpoint Upon discharge, pt to follow up with Dr. Soler in [facility] podiatry clinic
--- NOTE | 2017-10-30 16:50 | CP.PCM.PN ---
<VamshiJericajennifer E - Last Filed: 10/30/17 16:55> Subjective - Date & Time of Evaluation Date of Evaluation: 10/30/17 Time of Evaluation: 09:45 - Subjective Subjective: Medicine progress note ( Dr. Canales's service) Patient was seen and examined at bedside. Patient was resting comfortably in bed in no acute distress. Patient is s/p left 2nd digit arthroplasty for correction of deformity causing pressure ulceration. Patient denies chest pain, palpitation, SOB, chills, diaphoresis, nausea, vomiting, fever, and abdominal pain. Patient is ambulating with a walker without any difficulty. Objective - Vital Signs/Intake and Output Vital Signs (last 24 hours): Temp Pulse Resp BP Pulse Ox 97.6 F 77 20 119/74 96 10/30/17 15:00 10/30/17 15:00 10/30/17 15:00 10/30/17 15:00 10/30/17 15:00 Intake and Output: 10/30/17 10/30/17 06:59 18:59 Intake Total 1580 Balance 1580 - Medications Medications: Current Medications Acetaminophen (Tylenol 325mg Tab) 650 mg PO Q6 PRN PRN Reason: Fever >100.4 F Aspirin (Aspirin Chewable) 81 mg PO DAILY [facility] Last Admin: 10/30/17 09:57 Dose: 81 mg Carvedilol (Coreg) 3.125 mg PO BID [facility] Last Admin: 10/30/17 09:57 Dose: 3.125 mg Collagenase (Santyl) 1 gm TOP DAILY [facility] Last Admin: 10/30/17 09:57 Dose: 1 gm Enoxaparin Sodium (Lovenox) 40 mg SC DAILY [facility] Last Admin: 10/30/17 09:57 Dose: 40 mg Sodium Chloride (Sodium Chloride 0.9%) 1,000 mls @ 100 mls/hr IV .Q10H [facility] Last Admin: 10/30/17 09:01 Dose: 100 mls/hr Piperacillin Sod/Tazobactam Sod (Zosyn 3.375 Gm Iv Premix) 3.375 gm in 50 mls @ 100 mls/hr IVPB Q6H [facility] Last Admin: 10/30/17 12:00 Dose: 100 mls/hr Vancomycin/Sodium Chloride (Vancomycin 1 Gm/Ns 200 Ml) 1 gm in 200 mls @ 133.333 mls/hr IVPB Q12H [facility] PRN Reason: Protocol Last Admin: 10/30/17 09:00 Dose: 133.333 mls/hr Insulin Human Isoph/Insulin Regular (Novolin 70/30 (70/30 Units/Ml) 10 Ml) 24 units SC ACB [facility] Last Admin: 10/30/17 08:30 Dose: 24 units Insulin Human Isoph/Insulin Regular (Novolin 70/30 (70/30 Units/Ml) 10 Ml) 16 units SC ACD [facility] Last Admin: 10/29/17 17:00 Dose: 16 units Insulin Human NPH (Novolin N) 30 unit SC HS [facility] Last Admin: 10/29/17 21:34 Dose: 30 unit Insulin Human Regular (Novolin R) 0 unit SC ACHS [facility] PRN Reason: Protocol Last Admin: 10/30/17 11:52 Dose: Not Given Losartan Potassium (Cozaar) 50 mg PO DAILY [facility] Last Admin: 10/30/17 09:57 Dose: 50 mg Oxycodone/Acetaminophen (Percocet 5/325 Mg Tab) 1 tab PO Q4H PRN PRN Reason: Pain, moderate (4-7) Stop: 11/01/17 15:26 Rosuvastatin Calcium (Crestor) 5 mg PO HS [facility] Last Admin: 10/28/17 21:27 Dose: 5 mg Spironolactone (Aldactone) 25 mg PO DAILY [facility] Last Admin: 10/30/17 09:57 Dose: 25 mg - Labs Labs: 10/30/17 06:45 10/30/17 06:45 PT 10.9 SECONDS (9.7-12.2) 10/26/17 06:09 INR 1.0 10/26/17 06:09 APTT 29 SECONDS (21-34) 10/26/17 06:09 Assessment and Plan (1) Diabetic ulcer of left foot Assessment & Plan: * Dr. Nicholas (ID) consulted, help appreciated - As per ID, patient will need a picc line for outpatient long-term antibiotics * Dr. Soler (podiatry) consulted, help appreciated * 10/29: s/p left 2nd digit arthroplasty for correction of deformity causing pressure ulceration POD # 1 * Cleared for D/C * Dr. Valencia (cardiology) consulted for pre op risk stratification, help appreciated * Wound cultures: Coag neg staph * Blood cultures negative x24H Imaging * Left Foot XR: Interval soft tissue and bone loss at the distal 2nd digit consider infectious or inflammatory process versus postoperative change or posttraumatic etiology. Osteomyelitis is not excluded as discussed above. Similar pattern is seen affecting the distal most segment of the left 5th metatarsal bone and further clinical correlation is advised. Diffuse dorsal foot soft tissue edema as well as at least at the forefoot and midfoot plantar soft tissues as well. * Right Foot XR: Status post interval therefore the 5th transmetatarsal amputation. Mild forefoot and ankle soft tissue edema suggested as discussed above. No overt radiographic sign of osteomyelitis at this time. MRI can be performed for further characterization as clinically warranted as it is more sensitive for osteomyelitis radiography. Degenerative changes 1st and 2nd metatarsophalangeal joints and 2nd digit. * Right Tib/Fib: No radiographic evidence for bony erosion or destruction to suggest osteomyelitis. * CT left foot: 1. At the level of the head of the 2nd proximal phalanx best seen on the sagittal series 602, image 36, there is some mild cortical irregularity at the dorsal aspect of the bony cortex. This is nonspecific and underlying osteomyelitis at this level cannot be excluded. Correlation with MRI and or 3 phase bone scan would be helpful for further evaluation of this region. 2. Cortical irregularity with dysplastic changes noted at the head of the 5th metatarsal bone. This may be the sequelae of chronic postsurgical and/ or chronic osteomyelitic changes and or additional etiology. Superimposed acute osteomyelitic changes cannot entirely be excluded. Clinical correlation. If there is concern for acute osteomyelitis at this level, correlation with MRI and or three-phase bone scan may be helpful if indicated. 3. Bipartite lateral sesamoid bone. 4. Extensive vascular calcifications. 5. Subcutaneous soft tissue swelling and edema seen throughout the visualized foot which may represent underlying cellulitis. Clinical correlation. 6. Mild cortical irregularity along the posterior cortex of the distal tibia and distal fibula, likely chronic. Clinical correlation. * 10/27 arterial doppler: ABIs nondiagnostic due to calcifications of the arterial wall. * Will consider angiogram Meds: * Zosyn 3.375 g Q6H * Vanc 1 g Q12H * Vanc Trough 10/28: 9.3 * repeat on 10/30: 10.3 * Tylenol prn for fever * Santyl Status: Acute (2) Uncontrolled diabetes mellitus Assessment & Plan: * Dr. Mckenzie (Endocrine) consulted, help appreciated * HgbA1c 14.5 * Lipid panel: Trig 118, Chol 154, LDL 105, HDL 26 * TSH: 0.67 * Accuchecks ACHS Meds: * Novolin 70/30 24 units ACB and 16 units ACD * Novolin N 30 units SC HS * Sliding scale insulin * Hold metformin * Crestor 5 mg HS * D5NS 100 cc Status: Chronic (3) CHF (congestive heart failure) Assessment & Plan: With AICD Echocardiogram (10/25/17): showed left ventricular function is markedly reduced with diffuse hypokinesis. There is akinesis of the basal-inferiolateral and septal jordan. The left ventricular ejecton fraction is estimated to be 25%. There is borderline mild concentric LVH. The left ventricle is moderately dilated. * Coreg 3.125 mg BID * ASA 81 mg QD * Losartan 50 mg QD * Spironolactone 25 mg QD Status: Chronic (4) Prophylactic measure Assessment & Plan: * DVT: Lovenox 40mg SC daily * GI prophylaxis not indicated Disposition: Patient is cleared for D/C as per podiatry. As per ID, patient will need a PICC line for outpatient antibiotics infusion Patient is to follow up with Dr. Soler at [facility] upon discharge All plans and management discussed with Dr. Canales Status: Acute <Rohini Canales - Last Filed: 11/01/17 08:32> Objective - Vital Signs/Intake and Output Vital Signs (last 24 hours): Temp Pulse Resp BP Pulse Ox 98.2 F 76 20 148/83 96 11/01/17 07:50 11/01/17 07:50 11/01/17 07:50 11/01/17 00:00 11/01/17 07:50 Intake and Output: 11/01/17 11/01/17 06:59 18:59 Intake Total 400 Balance 400 - Medications Medications: Current Medications Acetaminophen (Tylenol 325mg Tab) 650 mg PO Q6 PRN PRN Reason: Fever >100.4 F Aspirin (Aspirin Chewable) 81 mg PO DAILY [facility] Last Admin: 10/31/17 09:14 Dose: 81 mg Carvedilol (Coreg) 3.125 mg PO BID [facility] Last Admin: 10/31/17 17:45 Dose: 3.125 mg Collagenase (Santyl) 1 gm TOP DAILY [facility] Last Admin: 10/31/17 09:13 Dose: 1 gm Enoxaparin Sodium (Lovenox) 40 mg SC DAILY [facility] Last Admin: 10/31/17 09:13 Dose: 40 mg Piperacillin Sod/Tazobactam Sod (Zosyn 3.375 Gm Iv Premix) 3.375 gm in 50 mls @ 100 mls/hr IVPB Q6H [facility] Last Admin: 11/01/17 04:51 Dose: 100 mls/hr Vancomycin HCl 1,500 mg/ (Sodium Chloride) 500 mls @ 166.6 mls/hr IVPB Q24H [facility] PRN Reason: Protocol Last Admin: 10/31/17 18:26 Dose: 166.6 mls/hr Insulin Human Isoph/Insulin Regular (Novolin 70/30 (70/30 Units/Ml) 10 Ml) 10 units SC ACD TEQU[facility] Insulin Human Isoph/Insulin Regular (Novolin 70/30 (70/30 Units/Ml) 10 Ml) 20 units SC ACB [facility] Last Admin: 11/01/17 08:24 Dose: 20 units Insulin Human NPH (Novolin N) 20 unit SC HS [facility] Insulin Human Regular (Novolin R) 0 unit SC ACHS [facility] PRN Reason: Protocol Last Admin: 11/01/17 07:39 Dose: Not Given Losartan Potassium (Cozaar) 50 mg PO DAILY [facility] Last Admin: 10/31/17 09:14 Dose: 50 mg Oxycodone/Acetaminophen (Percocet 5/325 Mg Tab) 1 tab PO Q4H PRN PRN Reason: Pain, moderate (4-7) Stop: 11/01/17 15:26 Rosuvastatin Calcium (Crestor) 5 mg PO HS [facility] Last Admin: 10/31/17 21:31 Dose: 5 mg Spironolactone (Aldactone) 25 mg PO DAILY [facility] Last Admin: 10/31/17 09:14 Dose: 25 mg - Labs Labs: 11/01/17 07:13 11/01/17 07:13 PT 10.9 SECONDS (9.7-12.2) 10/26/17 06:09 INR 1.0 10/26/17 06:09 APTT 29 SECONDS (21-34) 10/26/17 06:09 Attending/Attestation - Attestation I have personally seen and examined this patient.: Yes I have fully participated in the care of the patient.: Yes I have reviewed all pertinent clinical information, including history, physical exam and plan: Yes Notes (Text): Patient was seen and examined . No complain. This a 47 years male with poorly controlled DM,HTN ,CHF and s/p biventricular ICD came for foot infection. Patient is noncompliance with his meds and monitoring sugar.CT with irregularity of bone r/o osteo 2nd toe s/p Left 2nd toe arthroplasty. continue antibiotics,sugar control and wound care by oil expeller.CHF stable.cleared by oil expeller to discharge and follow as an out pt I discussed with Dr Nicholas about the duration of antibiotics.She is recommending weeks of IV andtibiotics and picc line .She will talk to Dr Soler and get back to us I agree with the resident's documentation of the assessment and the plan
--- NOTE | 2017-10-30 20:43 | CP.PCM.PN ---
Subjective - Date & Time of Evaluation Date of Evaluation: 10/30/17 Time of Evaluation: 03:25 - Subjective Subjective: dictated Objective - Vital Signs/Intake and Output Vital Signs (last 24 hours): Temp Pulse Resp BP Pulse Ox 97.6 F 77 20 119/74 96 10/30/17 15:00 10/30/17 15:00 10/30/17 15:00 10/30/17 15:00 10/30/17 15:00 Intake and Output: 10/30/17 10/31/17 18:59 06:59 Intake Total 1580 Balance 1580 - Medications Medications: Current Medications Acetaminophen (Tylenol 325mg Tab) 650 mg PO Q6 PRN PRN Reason: Fever >100.4 F Aspirin (Aspirin Chewable) 81 mg PO DAILY [facility] Last Admin: 10/30/17 09:57 Dose: 81 mg Carvedilol (Coreg) 3.125 mg PO BID COUNT [facility]CLUD[facility] Last Admin: 10/30/17 17:38 Dose: 3.125 mg Collagenase (Santyl) 1 gm TOP DAILY [facility]CLUD[facility] Last Admin: 10/30/17 09:57 Dose: 1 gm Enoxaparin Sodium (Lovenox) 40 mg SC DAILY [facility] Last Admin: 10/30/17 09:57 Dose: 40 mg Sodium Chloride (Sodium Chloride 0.9%) 1,000 mls @ 100 mls/hr IV .Q10H [facility]CLUD[facility] Last Admin: 10/30/17 17:44 Dose: 100 mls/hr Piperacillin Sod/Tazobactam Sod (Zosyn 3.375 Gm Iv Premix) 3.375 gm in 50 mls @ 100 mls/hr IVPB Q6H [facility] Last Admin: 10/30/17 17:38 Dose: 100 mls/hr Vancomycin/Sodium Chloride (Vancomycin 1 Gm/Ns 200 Ml) 1 gm in 200 mls @ 133.333 mls/hr IVPB Q12H [facility] PRN Reason: Protocol Last Admin: 10/30/17 19:30 Dose: 133.333 mls/hr Insulin Human Isoph/Insulin Regular (Novolin 70/30 (70/30 Units/Ml) 10 Ml) 24 units SC ACB [facility]CLUD[facility] Last Admin: 10/30/17 08:30 Dose: 24 units Insulin Human Isoph/Insulin Regular (Novolin 70/30 (70/30 Units/Ml) 10 Ml) 16 units SC ACD [facility] Last Admin: 10/30/17 17:39 Dose: 16 units Insulin Human NPH (Novolin N) 30 unit SC HS [facility] Last Admin: 10/29/17 21:34 Dose: 30 unit Insulin Human Regular (Novolin R) 0 unit SC ACHS [facility] PRN Reason: Protocol Last Admin: 10/30/17 17:40 Dose: Not Given Losartan Potassium (Cozaar) 50 mg PO DAILY [facility] Last Admin: 10/30/17 09:57 Dose: 50 mg Oxycodone/Acetaminophen (Percocet 5/325 Mg Tab) 1 tab PO Q4H PRN PRN Reason: Pain, moderate (4-7) Stop: 11/01/17 15:26 Rosuvastatin Calcium (Crestor) 5 mg PO HS [facility] Last Admin: 10/28/17 21:27 Dose: 5 mg Spironolactone (Aldactone) 25 mg PO DAILY [facility] Last Admin: 10/30/17 09:57 Dose: 25 mg - Labs Labs: 10/30/17 06:45 10/30/17 06:45 PT 10.9 SECONDS (9.7-12.2) 10/26/17 06:09 INR 1.0 10/26/17 06:09 APTT 29 SECONDS (21-34) 10/26/17 06:09
[2017-10-30] MEDS: (Novolin N) Insulin Human Isophane (NPH) 100 u/ml 10 ml vial SC SCH (21:45)
--- NOTE | 2017-10-31 00:32 | PN ---
DATE: 10/30/2017 SUBJECTIVE: The patient was seen today, was comfortable. No acute distress. He had a left second toe arthroplasty done for deformity causing pressure ulcer according to the Resident's note and I need to confirm this with Dr. Soler on Wednesday and then we will see from there. The patient has otherwise no other complaints. He ambulates with a walker. PHYSICAL EXAMINATION: VITAL SIGNS: T-max is 97.6. Vitals are stable. LUNGS: Clear. HEART: S1, S2 regular. He has a pacemaker. ABDOMEN: Soft. Nontender. No guarding. No rigidity present. EXTREMITIES: Have no edema. Dr. Soler did arthroplasty for correction of deformity and the x-ray shows bone loss at the distal second versus postoperative changes and posttraumatic etiology is not excluded. Similar pattern seen affecting most of fifth metatarsal. So I am going to discuss that with Dr. Soler and hopefully if this is the issue and she corrected it, then no antibiotics may be needed and he can probably discuss with the cake washer before I decide. Rosa Nicholas MD
--- NOTE | 2017-10-31 03:06 | CP.PCM.PN ---
<Ivonne Gómez - Last Filed: 10/31/17 03:03> Subjective - Date & Time of Evaluation Date of Evaluation: 10/31/17 Time of Evaluation: 03:03 - Subjective Subjective: Patient seen and examined at bedside. Patient resting comfortably in bed with no new complaints at this time. Patient is s/p left 2nd digit arthroplasty and pain is well controlled. He has been ambulating with a walker. Patient denies chest pain, palpitation, SOB, chills, diaphoresis, nausea, vomiting, fever, and abdominal pain. Objective - Vital Signs/Intake and Output Vital Signs (last 24 hours): Temp Pulse Resp BP Pulse Ox 98.1 F 70 20 118/73 98 10/31/17 00:00 10/31/17 00:00 10/31/17 00:00 10/31/17 00:00 10/31/17 00:00 Intake and Output: 10/30/17 10/31/17 18:59 06:59 Intake Total 1580 Balance 1580 - Medications Medications: Current Medications Acetaminophen (Tylenol 325mg Tab) 650 mg PO Q6 PRN PRN Reason: Fever >100.4 F Aspirin (Aspirin Chewable) 81 mg PO DAILY [facility] Last Admin: 10/30/17 09:57 Dose: 81 mg Carvedilol (Coreg) 3.125 mg PO BID [facility] Last Admin: 10/30/17 17:38 Dose: 3.125 mg Collagenase (Santyl) 1 gm TOP DAILY [facility] Last Admin: 10/30/17 09:57 Dose: 1 gm Enoxaparin Sodium (Lovenox) 40 mg SC DAILY [facility] Last Admin: 10/30/17 09:57 Dose: 40 mg Sodium Chloride (Sodium Chloride 0.9%) 1,000 mls @ 100 mls/hr IV .Q10H [facility] Last Admin: 10/30/17 17:44 Dose: 100 mls/hr Piperacillin Sod/Tazobactam Sod (Zosyn 3.375 Gm Iv Premix) 3.375 gm in 50 mls @ 100 mls/hr IVPB Q6H [facility] Last Admin: 10/30/17 23:48 Dose: 100 mls/hr Vancomycin/Sodium Chloride (Vancomycin 1 Gm/Ns 200 Ml) 1 gm in 200 mls @ 133.333 mls/hr IVPB Q12H [facility] PRN Reason: Protocol Last Admin: 10/30/17 19:30 Dose: 133.333 mls/hr Insulin Human Isoph/Insulin Regular (Novolin 70/30 (70/30 Units/Ml) 10 Ml) 24 units SC ACB [facility] Last Admin: 10/30/17 08:30 Dose: 24 units Insulin Human Isoph/Insulin Regular (Novolin 70/30 (70/30 Units/Ml) 10 Ml) 16 units SC ACD [facility] Last Admin: 10/30/17 17:39 Dose: 16 units Insulin Human NPH (Novolin N) 30 unit SC HS [facility] Last Admin: 10/30/17 21:45 Dose: 30 unit Insulin Human Regular (Novolin R) 0 unit SC ACHS [facility] PRN Reason: Protocol Last Admin: 10/30/17 21:46 Dose: Not Given Losartan Potassium (Cozaar) 50 mg PO DAILY [facility] Last Admin: 10/30/17 09:57 Dose: 50 mg Oxycodone/Acetaminophen (Percocet 5/325 Mg Tab) 1 tab PO Q4H PRN PRN Reason: Pain, moderate (4-7) Stop: 11/01/17 15:26 Rosuvastatin Calcium (Crestor) 5 mg PO HS [facility] Last Admin: 10/30/17 21:45 Dose: 5 mg Spironolactone (Aldactone) 25 mg PO DAILY [facility] Last Admin: 10/30/17 09:57 Dose: 25 mg - Labs Labs: 10/30/17 06:45 10/30/17 06:45 PT 10.9 SECONDS (9.7-12.2) 10/26/17 06:09 INR 1.0 10/26/17 06:09 APTT 29 SECONDS (21-34) 10/26/17 06:09 - Additional Findings Additional findings: - Constitutional Appears: Non-toxic, No Acute Distress - Head Exam Head Exam: ATRAUMATIC, NORMAL INSPECTION, NORMOCEPHALIC - Eye Exam Eye Exam: EOMI, Normal appearance, PERRL - ENT Exam ENT Exam: Mucous Membranes Moist - Respiratory Exam Respiratory Exam: Clear to Ausculation Bilateral, NORMAL BREATHING PATTERN. absent: Rales, Rhonchi, Wheezes - Cardiovascular Exam Cardiovascular Exam: RRR, +S1, +S2 - GI/Abdominal Exam GI & Abdominal Exam: Soft, Normal Bowel Sounds. absent: Distended, Tenderness - Extremities Exam Extremities Exam: absent: Calf Tenderness, Pedal Edema Additional comments: LLE: foot bandaged, clean/dry/intact RLE: ulceration of anterior tibia approximately 1.5 cm x 1 cm without surrounding erythema, purulent drainage, or mal odor; 3rd-5th digits amputated with overlying hyperpigmented plaque noted over previous surgical site without erythema, drainage, or mal odor - Neurological Exam Neurological Exam: Alert, Awake, Oriented x3 - Psychiatric Exam Psychiatric exam: Normal Affect, Normal Mood - Skin Skin Exam: Dry, Intact, Normal Color, Warm Assessment and Plan - Assessment and Plan (Free Text) Plan: Disposition: Patient awaiting PICC line placement for outpatient antibiotics. Otherwise clear for discharge. (1) Diabetic ulcer of left foot Assessment & Plan: * Dr. Nicholas (ID) consulted, help appreciated - As per ID, patient will need a picc line for outpatient long-term antibiotics * Dr. Soler (podiatry) consulted, help appreciated * 10/29: s/p left 2nd digit arthroplasty for correction of deformity causing pressure ulceration POD #2 * Cleared for D/C * Dr. Valencia (cardiology) consulted for pre op risk stratification, help appreciated * Wound cultures: Coag neg staph * Blood cultures negative x24H Imaging * Left Foot XR: Interval soft tissue and bone loss at the distal 2nd digit consider infectious or inflammatory process versus postoperative change or posttraumatic etiology. Osteomyelitis is not excluded as discussed above. Similar pattern is seen affecting the distal most segment of the left 5th metatarsal bone and further clinical correlation is advised. Diffuse dorsal foot soft tissue edema as well as at least at the forefoot and midfoot plantar soft tissues as well. * Right Foot XR: Status post interval therefore the 5th transmetatarsal amputation. Mild forefoot and ankle soft tissue edema suggested as discussed above. No overt radiographic sign of osteomyelitis at this time. MRI can be performed for further characterization as clinically warranted as it is more sensitive for osteomyelitis radiography. Degenerative changes 1st and 2nd metatarsophalangeal joints and 2nd digit. * Right Tib/Fib: No radiographic evidence for bony erosion or destruction to suggest osteomyelitis. * CT left foot: 1. At the level of the head of the 2nd proximal phalanx best seen on the sagittal series 602, image 36, there is some mild cortical irregularity at the dorsal aspect of the bony cortex. This is nonspecific and underlying osteomyelitis at this level cannot be excluded. Correlation with MRI and or 3 phase bone scan would be helpful for further evaluation of this region. 2. Cortical irregularity with dysplastic changes noted at the head of the 5th metatarsal bone. This may be the sequelae of chronic postsurgical and/ or chronic osteomyelitic changes and or additional etiology. Superimposed acute osteomyelitic changes cannot entirely be excluded. Clinical correlation. If there is concern for acute osteomyelitis at this level, correlation with MRI and or three-phase bone scan may be helpful if indicated. 3. Bipartite lateral sesamoid bone. 4. Extensive vascular calcifications. 5. Subcutaneous soft tissue swelling and edema seen throughout the visualized foot which may represent underlying cellulitis. Clinical correlation. 6. Mild cortical irregularity along the posterior cortex of the distal tibia and distal fibula, likely chronic. Clinical correlation. * 10/27 arterial doppler: ABIs nondiagnostic due to calcifications of the arterial wall. * Will consider angiogram Meds: * Zosyn 3.375 g Q6H * Vanc 1 g Q12H * Vanc Trough 10/28: 9.3 * repeat on 10/30: 10.3 * Tylenol prn for fever * Santyl Status: Acute (2) Uncontrolled diabetes mellitus Assessment & Plan: * Dr. Mckenzie (Endocrine) consulted, help appreciated * HgbA1c 14.5 * Lipid panel: Trig 118, Chol 154, LDL 105, HDL 26 * TSH: 0.67 * Accuchecks ACHS Meds: * Novolin 70/30 24 units ACB and 16 units ACD * Novolin N 30 units SC HS * Sliding scale insulin * Hold metformin * Crestor 5 mg HS * D5NS 100 cc Status: Chronic (3) CHF (congestive heart failure) Assessment & Plan: With AICD Echocardiogram (10/25/17): showed left ventricular function is markedly reduced with diffuse hypokinesis. There is akinesis of the basal-inferiolateral and septal jordan. The left ventricular ejecton fraction is estimated to be 25%. There is borderline mild concentric LVH. The left ventricle is moderately dilated. * Coreg 3.125 mg BID * ASA 81 mg QD * Losartan 50 mg QD * Spironolactone 25 mg QD Status: Chronic (4) Prophylactic measure Assessment & Plan: * DVT: Lovenox 40mg SC daily * GI prophylaxis not indicated Disposition: Patient is cleared for D/C as per podiatry. As per ID, patient will need a PICC line for outpatient antibiotics infusion Patient is to follow up with Dr. Soler at [facility] upon discharge <Rohini Canales - Last Filed: 11/01/17 08:36> Objective - Vital Signs/Intake and Output Vital Signs (last 24 hours): Temp Pulse Resp BP Pulse Ox 98.2 F 76 20 148/83 96 11/01/17 07:50 11/01/17 07:50 11/01/17 07:50 11/01/17 00:00 11/01/17 07:50 Intake and Output: 11/01/17 11/01/17 06:59 18:59 Intake Total 400 Balance 400 - Medications Medications: Current Medications Acetaminophen (Tylenol 325mg Tab) 650 mg PO Q6 PRN PRN Reason: Fever >100.4 F Aspirin (Aspirin Chewable) 81 mg PO DAILY [facility] Last Admin: 10/31/17 09:14 Dose: 81 mg Carvedilol (Coreg) 3.125 mg PO BID [facility] Last Admin: 10/31/17 17:45 Dose: 3.125 mg Collagenase (Santyl) 1 gm TOP DAILY [facility] Last Admin: 10/31/17 09:13 Dose: 1 gm Enoxaparin Sodium (Lovenox) 40 mg SC DAILY [facility] Last Admin: 10/31/17 09:13 Dose: 40 mg Piperacillin Sod/Tazobactam Sod (Zosyn 3.375 Gm Iv Premix) 3.375 gm in 50 mls @ 100 mls/hr IVPB Q6H [facility] Last Admin: 11/01/17 04:51 Dose: 100 mls/hr Vancomycin HCl 1,500 mg/ (Sodium Chloride) 500 mls @ 166.6 mls/hr IVPB Q24H [facility] PRN Reason: Protocol Last Admin: 10/31/17 18:26 Dose: 166.6 mls/hr Insulin Human Isoph/Insulin Regular (Novolin 70/30 (70/30 Units/Ml) 10 Ml) 10 units SC ACD [facility] Insulin Human Isoph/Insulin Regular (Novolin 70/30 (70/30 Units/Ml) 10 Ml) 20 units SC ACB [facility] Last Admin: 11/01/17 08:24 Dose: 20 units Insulin Human NPH (Novolin N) 20 unit SC HS [facility] Insulin Human Regular (Novolin R) 0 unit SC ACHS [facility] PRN Reason: Protocol Last Admin: 11/01/17 07:39 Dose: Not Given Losartan Potassium (Cozaar) 50 mg PO DAILY [facility] Last Admin: 10/31/17 09:14 Dose: 50 mg Oxycodone/Acetaminophen (Percocet 5/325 Mg Tab) 1 tab PO Q4H PRN PRN Reason: Pain, moderate (4-7) Stop: 11/01/17 15:26 Rosuvastatin Calcium (Crestor) 5 mg PO HS [facility] Last Admin: 10/31/17 21:31 Dose: 5 mg Spironolactone (Aldactone) 25 mg PO DAILY [facility] Last Admin: 10/31/17 09:14 Dose: 25 mg - Labs Labs: 11/01/17 07:13 11/01/17 07:13 PT 10.9 SECONDS (9.7-12.2) 10/26/17 06:09 INR 1.0 10/26/17 06:09 APTT 29 SECONDS (21-34) 10/26/17 06:09 Attending/Attestation - Attestation I have personally seen and examined this patient.: Yes I have fully participated in the care of the patient.: Yes I have reviewed all pertinent clinical information, including history, physical exam and plan: Yes Notes (Text): Patient was seen and examined by me. No complain. This a 47 years male with poorly controlled DM,HTN ,CHF and s/p biventricular ICD came for foot infection. Patient is noncompliance with his meds and monitoring sugar.CT with irregularity of bone r/o osteo 2nd toe s/p Left 2nd toe arthroplasty. 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
[2017-10-31] MEDS: Piperacill/Tazo 3.375gm in Dex 3.375 GM/50 ML BAG IVPB SCH ×3 (04:33→17:47)
[2017-10-31] MEDS: Sodium Chloride 0.9% 1,000 ML IV SCH (04:33)
[2017-10-31] MEDS: Vancomycin 1 gm/NS 200 ml 1 GM/200 ML BAG IVPB SCH (06:08)
[2017-10-31] MEDS: (Novolin R) Insulin Human Regular 100 units/ml vial SC SCH ×4 (07:40→21:31)
[2017-10-31] MEDS: (Novolin 70/30) NPH/Regular 70/30 Units/ml 10 ml vial SC SCH ×2 (08:30→17:46)
[2017-10-31 08:42] LABS: ALB/GLOB RATIO 0.8 (1.0-2.1); ALBUMIN 2.7 g/dL (3.5-5.0); ALT/SGPT 17 U/L (21-72); AST/SGOT 16 U/L (17-59); BLOOD UREA NITROGEN 15 mg/dL (9-20); CALCIUM 8.1 mg/dl (8.6-10.4); GFR AFRICAN-AMERICAN > 60; GFR NON-AFRICAN AMERICAN > 60
[2017-10-31 08:46] LABS: BASO # 0.1 K/uL (0.0-0.2); BASO % 0.9 % (0.0-2.0); EOS # 0.2 K/uL (0.0-0.7); EOS % 2.6 % (0.0-4.0); LYMPH # 1.6 K/uL (1.0-4.3); LYMPH % 24.5 % (20.0-40.0); MEAN CELL VOLUME 88.5 fL (80.0-94.0); MEAN CORPUSCULAR HEMOGLOBIN 30.9 pg (27.0-31.0); MEAN CORPUSCULAR HGB CONC 34.9 g/dL (33.0-37.0); MONO # 0.5 K/uL (0.0-0.8); MONO % 6.9 % (0.0-10.0); NEUT # 4.4 K/uL (1.8-7.0); NEUT % 65.1 % (50.0-75.0); RBC 4.26 Mil/uL (4.40-5.90); RED CELL DISTRIBUTION WIDTH 13.5 % (11.5-14.5); WHITE BLOOD COUNT 6.7 K/uL (4.8-10.8)
[2017-10-31 08:47] LABS: HEMOGLOBIN 13.1 g/dL (12.0-18.0)
[2017-10-31] MEDS: Collagenase 250 Units/gm Ointment(30 gm) TOP SCH (09:13)
[2017-10-31] MEDS: Enoxaparin 40 mg Syringe SC SCH (09:13)
--- NOTE | 2017-10-31 12:51 | CP.PCM.PN ---
Subjective - Date & Time of Evaluation Date of Evaluation: 10/31/17 Time of Evaluation: 12:51 - Subjective Subjective: 47 y/o male seen at bedside 2 days s/p left 2nd digit arthroplasty surgery to address 2nd digit ulceration. Pt also has distal anterior wound to R lower leg. Pt denies having any pain to his lower extremities. Denies any acute events overnight. Denies F/C/N/V/CP/SOB. Admits to keeping the dressing clean dry and intact. Objective - Vital Signs/Intake and Output Vital Signs (last 24 hours): Temp Pulse Resp BP Pulse Ox 98.1 F 70 20 118/73 98 10/31/17 00:00 10/31/17 00:00 10/31/17 00:00 10/31/17 00:00 10/31/17 00:00 Intake and Output: 10/31/17 10/31/17 06:59 18:59 Intake Total 1250 Balance 1250 - Medications Medications: Current Medications Acetaminophen (Tylenol 325mg Tab) 650 mg PO Q6 PRN PRN Reason: Fever >100.4 F Aspirin (Aspirin Chewable) 81 mg PO DAILY [facility] Last Admin: 10/31/17 09:14 Dose: 81 mg Carvedilol (Coreg) 3.125 mg PO BID [facility] Last Admin: 10/31/17 09:14 Dose: 3.125 mg Collagenase (Santyl) 1 gm TOP DAILY [facility] Last Admin: 10/31/17 09:13 Dose: 1 gm Enoxaparin Sodium (Lovenox) 40 mg SC DAILY [facility] Last Admin: 10/31/17 09:13 Dose: 40 mg Piperacillin Sod/Tazobactam Sod (Zosyn 3.375 Gm Iv Premix) 3.375 gm in 50 mls @ 100 mls/hr IVPB Q6H [facility] Last Admin: 10/31/17 10:56 Dose: 100 mls/hr Vancomycin/Sodium Chloride (Vancomycin 1 Gm/Ns 200 Ml) 1 gm in 200 mls @ 133.333 mls/hr IVPB Q12H [facility] PRN Reason: Protocol Last Admin: 10/31/17 06:08 Dose: 133.333 mls/hr Insulin Human Isoph/Insulin Regular (Novolin 70/30 (70/30 Units/Ml) 10 Ml) 24 units SC ACB [facility] Last Admin: 10/31/17 08:30 Dose: 24 units Insulin Human Isoph/Insulin Regular (Novolin 70/30 (70/30 Units/Ml) 10 Ml) 16 units SC ACD [facility] Last Admin: 10/30/17 17:39 Dose: 16 units Insulin Human NPH (Novolin N) 30 unit SC HS [facility] Last Admin: 10/30/17 21:45 Dose: 30 unit Insulin Human Regular (Novolin R) 0 unit SC ACHS [facility] PRN Reason: Protocol Last Admin: 10/31/17 11:52 Dose: Not Given Losartan Potassium (Cozaar) 50 mg PO DAILY [facility] Last Admin: 10/31/17 09:14 Dose: 50 mg Oxycodone/Acetaminophen (Percocet 5/325 Mg Tab) 1 tab PO Q4H PRN PRN Reason: Pain, moderate (4-7) Stop: 11/01/17 15:26 Rosuvastatin Calcium (Crestor) 5 mg PO HS [facility] Last Admin: 10/30/17 21:45 Dose: 5 mg Spironolactone (Aldactone) 25 mg PO DAILY [facility] Last Admin: 10/31/17 09:14 Dose: 25 mg - Labs Labs: 10/31/17 08:08 10/31/17 08:08 PT 10.9 SECONDS (9.7-12.2) 10/26/17 06:09 INR 1.0 10/26/17 06:09 APTT 29 SECONDS (21-34) 10/26/17 06:09 - Constitutional Appears: Well, Non-toxic, No Acute Distress - Extremities Exam Additional comments: Lower extremity focused exam: Vasc: DP/PT pulses 1/4 B/L. Temperature gradient warm to cool B/L. CFT < 3 sec x 7 digits. Derm: Left - surgical incision site noted to dorsum of 2nd digit extending to metatarsal head proximally. Sutures intact with skin edges well-coapted and no signs of dehiscence. Digit exhibits mild-moderate erythema surrounding surgical site. Cap fill time to 2nd digit delayed but present. No active drainage, no malodor, no fluctuance. Right- Anterior partial thickness ulceration noted to anterior ridge of tibial at mildly 1/3 of tibia measuring 1.6 x 0.8 cm with a fibrotic wound base. No sheryl-wound erythema, no malodor, no acute signs if infection. No undermining or raised margins. Hyperpigmented scaling plaque noted to dorsolateral forefoot at site of prior digital amputations 3-5, absent irregular margins. Hyperkeratosis is stably adhered to dermal base. NEURO: Protective sensation greatly diminished to forefoot and midfoot. ORTHO: No tenderness to palpation of left foot 2nd digit at surgical site. Right foot 3rd-5th ray amputation sites noted. MMT reveals pedal and lower leg group muscle strength is graded 5/5. - Neurological Exam Neurological Exam: Alert, Awake, Oriented x3 - Psychiatric Exam Psychiatric exam: Normal Affect, Normal Mood Assessment and Plan - Assessment and Plan (Free Text) Assessment: 47 y/o male 1) left foot dorsal 2nd digit diabetic ulceration, 2 days s/p left 2nd digit arthroplasty for correction of deformity causing pressure ulceration and 2) right anterior tibia ulceration Plan: Pt seen and evaluated at bedside Discussed with attending Dr. Soler Pt is afebrile, WBC 6.7 Wounds cleansed with saline L 2nd digit surgical site dressed with betadine and DSD R anterior tibial wound dressed with Santyl and DSD Pt is stable from podiatry standpoint Upon discharge, pt to follow up with Dr. Soler in [facility] podiatry clinic
--- NOTE | 2017-10-31 17:58 | RAD ---
PROCEDURE: Left foot dated 10/29/2017 HISTORY: left foot surgery COMPARISON: None. FINDINGS: BONES: Apparent postoperative changes distal aspect 5th metatarsal as well as distal aspect proximal phalanx 2nd digit. Questionable mild soft tissue swelling distal aspect 2nd digit. Note made of a linear transversely oriented linear lucency extending through the distal aspect proximal phalanx 1st digit. . There may also be some mild dorsal soft tissue swelling JOINTS: Apparent hammertoe deformities second 3rd and 4th digits. Mild multi articular degenerative changes. SOFT TISSUES: As above. OTHER FINDINGS: None. IMPRESSION: Postoperative changes involving the distal aspect left 5th metatarsal and distal aspect proximal phalanx 2nd digit. See above discussion for additional details.
[2017-10-31] MEDS: (Novolin N) Insulin Human Isophane (NPH) 100 u/ml 10 ml vial SC SCH (21:31)
[2017-11-01] MEDS: Piperacill/Tazo 3.375gm in Dex 3.375 GM/50 ML BAG IVPB SCH ×4 (00:16→19:28)
--- NOTE | 2017-11-01 03:11 | OP ---
PROCEDURE DATE: 10/28/2017 PRIMARY SURGEON: Kimberly Soler DPM. CYLINDER VALVE REPAIRER: Miladis Cunningham PGY2. ANESTHESIOLOGIST: Dr. Romero. TYPE OF ANESTHESIA: MAC IV sedation with local PREOPERATIVE DIAGNOSES: 1. Left second digit Mancera grade 3 ulceration. 2. 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 POSTOPERATIVE DIAGNOSES: 1. Left second digit Mancera grade 3 ulceration. 2. 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 PROCEDURE PERFORMED: 1. Left second digit proximal phalanx head bone resection/arthroplasty. 2. Left second digit ulcer debridement with primary closure. SPECIMEN: Left second digit proximal phalanx head bone. INDICATIONS: The patient is a 47-year-old male with the above stated diagnoses. The patient has exhausted all conservative treatment options at this time and is now in need of surgical intervention. The patient signed the surgical consent after careful explanation of risks, benefits, complications, and potential alternatives to the proposed surgical procedures. No guarantees were either given nor implied. All patient's questions were answered to his satisfaction. PREPARATION: The patient's n.p.o. status was confirmed prior to bringing the patient to the operating room. The patient was brought in the operating room and placed on the operating room table in a supine position. Once IV sedation was confirmed and achieved, the patient received a total of 10 mL of 1:1 mix of 0.5% Marcaine plain to 2% lidocaine plain in a local block type fashion to second digit. Once local anesthetic was confirmed and achieved, the patient's left foot was then prepped and draped in usual sterile manner and the procedure began. DESCRIPTION OF PROCEDURE: Left second digit proximal phalanx head resection/arthroplasty. Attention was then directed to the dorsal aspect of the patient's left foot second digit where a full-thickness ulceration was noted which measured 0.9 x 0.5 cm secondary to proximal phalanx head bone fully exposed. At this time, approximately 3 cm minimal longitudinal incision was made with the mid point incision over the central ulceration site at the proximal interphalangeal joint using the #15 blade. This incision was then extended down to the subcutaneous tissue layers with care being taken to identify, avoid, and retract all vital neurovascular structures. All bleeders were cauterized and ligated as needed. At this time, extensor digitorum longus tendon was evaluated and distal aspect of the tendon were noted to be fairly disorganized and devitalized. Using sharp dissection, distal hallucis longus tendon proximal to the proximal interphalangeal joint was resected and passed in the operating dubose. Nonviable subcutaneous tissue in the periulceration site was then divided and passed in the operating dubose. Next, sagittal saw was introduced and the distal one third of the second proximal phalanx head was resected and passed to the operating field to be sent for pathological evaluation. At this time, evaluation of the middle phalanx base was performed. No devitalization or signs of infection were noted. At this point, all previous nonviable tissues had been resected. Surgical site was then flushed with copious amounts of sterile saline. At this time, primary wound closure was performed in a cross type fashion with perpendicular to long axis of digit. Ulcer margins being reapproximated with 4-0 Prolene and skin incision parallel to the long axis of the digit were reapproximated using 4-0 Prolene. Primary closure was achieved. Surgical site was then dressed with Betadine soaked Adaptic, 4 x 4 gauze, Kerlix, Sindi, and MARLENE. Prior to dressing being applied, the patient received a total of 7 mL of 0.5% Marcaine plain in a local block type fashion to the digit. POSTOPERATIVE CONDITION: The patient tolerated the anesthesia and procedure well and was escorted to the recovery room with vital signs stable and neurovascular status intact to the second digit. The patient had no complaints or complications. The patient will follow up with Dr. Soler in podiatry service while the patient remains inhouse. Miladis Cunningham DPM
[2017-11-01 07:27] LABS: BASO # 0.1 K/uL (0.0-0.2); EOS # 0.1 K/uL (0.0-0.7); EOS % 2.3 % (0.0-4.0); HEMOGLOBIN 13.5 g/dL (12.0-18.0); LYMPH # 1.2 K/uL (1.0-4.3); LYMPH % 19.2 % (20.0-40.0); MEAN CELL VOLUME 89.2 fL (80.0-94.0); MEAN CORPUSCULAR HEMOGLOBIN 30.4 pg (27.0-31.0); MEAN CORPUSCULAR HGB CONC 34.1 g/dL (33.0-37.0); MEAN PLATELET VOLUME 8.8 fL (7.2-11.7); MONO # 0.5 K/uL (0.0-0.8); MONO % 7.1 % (0.0-10.0); NEUT # 4.6 K/uL (1.8-7.0); NEUT % 70.4 % (50.0-75.0); RBC 4.43 Mil/uL (4.40-5.90); RED CELL DISTRIBUTION WIDTH 13.6 % (11.5-14.5); WHITE BLOOD COUNT 6.5 K/uL (4.8-10.8)
[2017-11-01] MEDS ORDERED: (Novolin 70/30) NPH/Regular 70/30 Units/ml 10 ml vial SC SCH ×2 (07:30→16:30)
[2017-11-01] MEDS: (Novolin R) Insulin Human Regular 100 units/ml vial SC SCH ×3 (07:39→16:17)
[2017-11-01 07:52] LABS: ALB/GLOB RATIO 0.8 (1.0-2.1); ALBUMIN 2.8 g/dL (3.5-5.0); ALT/SGPT 13 U/L (21-72); AST/SGOT 18 U/L (17-59); BLOOD UREA NITROGEN 16 mg/dL (9-20); CALCIUM 8.4 mg/dl (8.6-10.4); GFR AFRICAN-AMERICAN > 60; GFR NON-AFRICAN AMERICAN > 60
[2017-11-01 07:55] VITALS: O2SAT 96
--- NOTE | 2017-11-01 10:07 | CP.PCM.PN ---
Subjective - Date & Time of Evaluation Date of Evaluation: 11/01/17 Time of Evaluation: 10:06 - Subjective Subjective: Cardiology Progress Note Patient seen and examined at bedside. Patient denies any chest pain, nausea, vomiting, or blurry vision. Chart review indicates s/p left 2nd digit proximal head bone resection/arthroplasty and left 2nd digit ulcer debridement with primary wound closure. Nurse reports no events overnight. Objective - Vital Signs/Intake and Output Vital Signs (last 24 hours): Temp Pulse Resp BP Pulse Ox 98.2 F 76 20 172/97 H 96 11/01/17 07:50 11/01/17 07:50 11/01/17 07:50 11/01/17 08:30 11/01/17 07:50 Intake and Output: 11/01/17 11/01/17 06:59 18:59 Intake Total 400 Balance 400 - Medications Medications: Current Medications Acetaminophen (Tylenol 325mg Tab) 650 mg PO Q6 PRN PRN Reason: Fever >100.4 F Aspirin (Aspirin Chewable) 81 mg PO DAILY [facility] Last Admin: 10/31/17 09:14 Dose: 81 mg Carvedilol (Coreg) 3.125 mg PO BID [facility] Last Admin: 10/31/17 17:45 Dose: 3.125 mg Collagenase (Santyl) 1 gm TOP DAILY [facility] Last Admin: 10/31/17 09:13 Dose: 1 gm Enoxaparin Sodium (Lovenox) 40 mg SC DAILY [facility] Last Admin: 10/31/17 09:13 Dose: 40 mg Piperacillin Sod/Tazobactam Sod (Zosyn 3.375 Gm Iv Premix) 3.375 gm in 50 mls @ 100 mls/hr IVPB Q6H [facility] Last Admin: 11/01/17 04:51 Dose: 100 mls/hr Vancomycin HCl 1,500 mg/ (Sodium Chloride) 500 mls @ 166.6 mls/hr IVPB Q24H [facility] PRN Reason: Protocol Last Admin: 10/31/17 18:26 Dose: 166.6 mls/hr Insulin Human Isoph/Insulin Regular (Novolin 70/30 (70/30 Units/Ml) 10 Ml) 10 units SC ACD [facility] Insulin Human Isoph/Insulin Regular (Novolin 70/30 (70/30 Units/Ml) 10 Ml) 20 units SC ACB [facility] Last Admin: 11/01/17 08:24 Dose: 20 units Insulin Human NPH (Novolin N) 20 unit SC HS [facility] Insulin Human Regular (Novolin R) 0 unit SC ACHS [facility] PRN Reason: Protocol Last Admin: 11/01/17 07:39 Dose: Not Given Losartan Potassium (Cozaar) 50 mg PO DAILY [facility] Last Admin: 10/31/17 09:14 Dose: 50 mg Oxycodone/Acetaminophen (Percocet 5/325 Mg Tab) 1 tab PO Q4H PRN PRN Reason: Pain, moderate (4-7) Stop: 11/01/17 15:26 Rosuvastatin Calcium (Crestor) 5 mg PO HS [facility] Last Admin: 10/31/17 21:31 Dose: 5 mg Spironolactone (Aldactone) 25 mg PO DAILY [facility] Last Admin: 10/31/17 09:14 Dose: 25 mg - Labs Labs: 11/01/17 07:13 11/01/17 07:13 PT 10.9 SECONDS (9.7-12.2) 10/26/17 06:09 INR 1.0 10/26/17 06:09 APTT 29 SECONDS (21-34) 10/26/17 06:09 - Constitutional Appears: Well, Non-toxic - Head Exam Head Exam: ATRAUMATIC, NORMOCEPHALIC - Eye Exam Eye Exam: EOMI, Normal appearance - ENT Exam ENT Exam: Mucous Membranes Moist - Neck Exam Neck Exam: Normal Inspection - Respiratory Exam Respiratory Exam: Clear to Ausculation Bilateral, NORMAL BREATHING PATTERN - Cardiovascular Exam Cardiovascular Exam: RRR, +S1, +S2 - Extremities Exam Extremities Exam: absent: Calf Tenderness - Back Exam Back Exam: NORMAL INSPECTION. absent: CVA tenderness (L), CVA tenderness (R) - Neurological Exam Neurological Exam: Alert, Awake, Oriented x3 - Psychiatric Exam Psychiatric exam: Normal Affect, Normal Mood - Skin Skin Exam: Dry, Intact, Normal Color, Warm Assessment and Plan - Assessment and Plan (Free Text) Assessment: 47 year old male with a past medical history of uncontrolled DM, non- ischemic cardiomyopathy with severe left ventricular systolic dysfunction, s/p biventricular pacemaker, with podiatry planning for potential 2nd digit arthroplasty with resection of non-viable adjacent bone who cardiology was consulted for cardiac risk stratification for the aforementioned, non-cardiac surgery. Echocardiogram showed left ventricular function is markedly reduced with diffuse hypokinesis. There is akinesis of the basal-inferiolateral and septal jordan. The left ventricular ejecton fraction is estimated to be 25%. There is borderline mild concentric LVH. The left ventricle is moderately dilated. Plan: Cardiac risk stratification: According to the 2014 AHA/ACC guidelines on preoperative risk assessment in a patient undergoing a noncardiac sugery, this patient is considered low risk for a low risk procedure. Guideline directed Medical therapy for non-ischemic cardiomyopathy with an estimated EF of 30% with Losartan 50 mg PO daily as well as Spirinolactone 25 mg PO daily. Patient to follow up with Dr. Valencia within one week of discharge to continue monitoring clinically and adjust medications as appropriate. We will continue to follow while the patient is in-house. - Diet changed to HHD, low carbohydrate consistent, with Na restriction of 2 gm. Case reviewed and discussed with Dr. Valencia
--- NOTE | 2017-11-01 10:14 | CP.PCM.PN ---
Subjective - Date & Time of Evaluation Date of Evaluation: 11/01/17 Time of Evaluation: 10:12 - Subjective Subjective: Podiatry Progress note for Dr. Soler 47 y/o male seen at bedside 3 days s/p left 2nd digit arthroplasty surgery to address 2nd digit ulceration with attending, Dr. Soler. Pt also has distal anterior wound to R lower leg. Pt denies having any pain to his lower extremities. Denies any acute events overnight. Denies F/C/N/V/CP/SOB. Admits to keeping the dressing clean dry and intact. He is seen walking with PT using a walker. Objective - Vital Signs/Intake and Output Vital Signs (last 24 hours): Temp Pulse Resp BP Pulse Ox 98.2 F 76 20 172/97 H 96 11/01/17 07:50 11/01/17 07:50 11/01/17 07:50 11/01/17 08:30 11/01/17 07:50 Intake and Output: 11/01/17 11/01/17 06:59 18:59 Intake Total 400 Balance 400 - Medications Medications: Current Medications Acetaminophen (Tylenol 325mg Tab) 650 mg PO Q6 PRN PRN Reason: Fever >100.4 F Aspirin (Aspirin Chewable) 81 mg PO DAILY [facility] Last Admin: 10/31/17 09:14 Dose: 81 mg Carvedilol (Coreg) 3.125 mg PO BID [facility] Last Admin: 10/31/17 17:45 Dose: 3.125 mg Collagenase (Santyl) 1 gm TOP DAILY [facility] Last Admin: 10/31/17 09:13 Dose: 1 gm Enoxaparin Sodium (Lovenox) 40 mg SC DAILY [facility] Last Admin: 10/31/17 09:13 Dose: 40 mg Piperacillin Sod/Tazobactam Sod (Zosyn 3.375 Gm Iv Premix) 3.375 gm in 50 mls @ 100 mls/hr IVPB Q6H [facility] Last Admin: 11/01/17 04:51 Dose: 100 mls/hr Vancomycin HCl 1,500 mg/ (Sodium Chloride) 500 mls @ 166.6 mls/hr IVPB Q24H [facility] PRN Reason: Protocol Last Admin: 10/31/17 18:26 Dose: 166.6 mls/hr Insulin Human Isoph/Insulin Regular (Novolin 70/30 (70/30 Units/Ml) 10 Ml) 10 units SC ACD [facility] Insulin Human Isoph/Insulin Regular (Novolin 70/30 (70/30 Units/Ml) 10 Ml) 20 units SC ACB [facility] Last Admin: 11/01/17 08:24 Dose: 20 units Insulin Human NPH (Novolin N) 20 unit SC HS [facility] Insulin Human Regular (Novolin R) 0 unit SC ACHS [facility] PRN Reason: Protocol Last Admin: 11/01/17 07:39 Dose: Not Given Losartan Potassium (Cozaar) 50 mg PO DAILY [facility] Last Admin: 10/31/17 09:14 Dose: 50 mg Oxycodone/Acetaminophen (Percocet 5/325 Mg Tab) 1 tab PO Q4H PRN PRN Reason: Pain, moderate (4-7) Stop: 11/01/17 15:26 Rosuvastatin Calcium (Crestor) 5 mg PO HS [facility] Last Admin: 10/31/17 21:31 Dose: 5 mg Spironolactone (Aldactone) 25 mg PO DAILY [facility] Last Admin: 10/31/17 09:14 Dose: 25 mg - Labs Labs: 11/01/17 07:13 11/01/17 07:13 PT 10.9 SECONDS (9.7-12.2) 10/26/17 06:09 INR 1.0 10/26/17 06:09 APTT 29 SECONDS (21-34) 10/26/17 06:09 - Constitutional Appears: Well, Non-toxic, No Acute Distress - Extremities Exam Additional comments: Lower extremity focused exam: Vasc: DP and PT pulses palpable 1/4 B/L. Temperature gradient warm to cool B/L. CFT < 3 sec x 7 digits. Derm: Left - surgical incision site noted to dorsum of 2nd digit extending to metatarsal head proximally. Sutures intact with skin edges well-coapted and no signs of dehiscence. Digit exhibits mild-moderate erythema surrounding surgical site. Cap fill time to 2nd digit delayed but present. No active drainage, no malodor, no fluctuance. Right- Anterior partial thickness ulceration noted to anterior ridge of tibial at mildly 1/3 of tibia measuring 1.6 x 0.8 cm with a fibrotic wound base. No sheryl-wound erythema, no malodor, no acute signs if infection. No undermining or raised margins. Hyperpigmented scaling plaque noted to dorsolateral forefoot at site of prior digital amputations 3-5, absent irregular margins. Hyperkeratosis is stably adhered to dermal base. NEURO: Protective sensation greatly diminished to forefoot and midfoot. ORTHO: No tenderness to palpation of left foot 2nd digit at surgical site. Right foot 3rd-5th ray amputation sites noted. MMT reveals pedal and lower leg group muscle strength is graded 5/5. 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 Soler lab, chart, vitals reviewed; afebrile, WBC 6.5 Wounds cleansed with saline L 2nd digit surgical site dressed with betadine and DSD R anterior tibial wound dressed with Santyl and DSD WB to heel in surgical shoe Pt is stable from podiatry standpoint Upon discharge, pt to follow up with Dr. Soler in [facility] podiatry clinic
[2017-11-01] MEDS: Enoxaparin 40 mg Syringe SC SCH (11:44)
[2017-11-01] MEDS: Collagenase 250 Units/gm Ointment(30 gm) TOP SCH (11:47)
--- NOTE | 2017-11-01 12:47 | RAD ---
Chest x-ray single frontal view History: PICC line placement. Comparison: 07/12/2017 Findings: Right PICC line with tip extending into the right atrium. No evidence of postprocedure pneumothorax. Mild to moderate venous congestion. Right hilar prominence. Patchy increased markings at the left lung base. Left-sided pacemaker. Cardiomegaly. Degenerative changes in the spine and shoulders. Impression: Right PICC line with tip extending into the right atrium. No evidence of postprocedure pneumothorax. Mild to moderate venous congestion. Right hilar prominence. Patchy increased markings at the left lung base. Left-sided pacemaker. Cardiomegaly.
--- NOTE | 2017-11-01 15:27 | CP.PCM.PN ---
Subjective - Date & Time of Evaluation Date of Evaluation: 11/01/17 Time of Evaluation: 02:45 - Subjective Subjective: dictated Objective - Vital Signs/Intake and Output Vital Signs (last 24 hours): Temp Pulse Resp BP Pulse Ox 98.2 F 76 20 172/97 H 96 11/01/17 07:50 11/01/17 07:50 11/01/17 07:50 11/01/17 08:30 11/01/17 07:50 Intake and Output: 11/01/17 11/01/17 06:59 18:59 Intake Total 400 Balance 400 - Medications Medications: Current Medications Acetaminophen (Tylenol 325mg Tab) 650 mg PO Q6 PRN PRN Reason: Fever >100.4 F Aspirin (Aspirin Chewable) 81 mg PO DAILY [facility] Last Admin: 11/01/17 11:44 Dose: 81 mg Carvedilol (Coreg) 6.25 mg PO BID [facility] Collagenase (Santyl) 1 gm TOP DAILY [facility] Last Admin: 11/01/17 11:47 Dose: 1 applic Enoxaparin Sodium (Lovenox) 40 mg SC DAILY [facility] Last Admin: 11/01/17 11:44 Dose: 40 mg Piperacillin Sod/Tazobactam Sod (Zosyn 3.375 Gm Iv Premix) 3.375 gm in 50 mls @ 100 mls/hr IVPB Q6H [facility] Last Admin: 11/01/17 11:48 Dose: 100 mls/hr Vancomycin HCl 1,500 mg/ (Sodium Chloride) 500 mls @ 250 mls/hr IVPB Q24H [facility] PRN Reason: Protocol Insulin Human Isoph/Insulin Regular (Novolin 70/30 (70/30 Units/Ml) 10 Ml) 10 units SC ACD [facility] Insulin Human Isoph/Insulin Regular (Novolin 70/30 (70/30 Units/Ml) 10 Ml) 20 units SC ACB [facility] Last Admin: 11/01/17 08:24 Dose: 20 units Insulin Human NPH (Novolin N) 20 unit SC HS [facility] Insulin Human Regular (Novolin R) 0 unit SC ACHS [facility] PRN Reason: Protocol Last Admin: 11/01/17 11:47 Dose: Not Given Losartan Potassium (Cozaar) 50 mg PO DAILY [facility] Last Admin: 11/01/17 11:44 Dose: 50 mg Rosuvastatin Calcium (Crestor) 5 mg PO HS [facility] Last Admin: 10/31/17 21:31 Dose: 5 mg Spironolactone (Aldactone) 25 mg PO DAILY [facility] Last Admin: 11/01/17 11:44 Dose: 25 mg - Labs Labs: 11/01/17 07:13 11/01/17 07:13 PT 10.9 SECONDS (9.7-12.2) 10/26/17 06:09 INR 1.0 10/26/17 06:09 APTT 29 SECONDS (21-34) 10/26/17 06:09
[2017-11-01 17:04] VITALS: BP 146/85; PULSE 69; TEMP 97.4
--- NOTE | 2017-11-01 19:36 | CP.PCM.DIS ---
Provider - Provider Date of Admission: 10/27/17 11:22 Attending physician: Rohini Canales MD Consults: Dr. Jonah Nicholas Time Spent in preparation of Discharge (in minutes): 35 Diagnosis - Discharge Diagnosis (1) Diabetic ulcer of foot associated with diabetes mellitus due to underlying condition, limited to breakdown of skin Status: Acute (2) Uncontrolled diabetes mellitus Status: Chronic Hospital Course - Lab Results Lab Results: Micro Results 10/25/17 17:00 Blood Blood Culture - Final NO GROWTH AFTER 5 DAYS 10/25/17 17:00 Blood Gram Stain - Final TEST NOT PERFORMED 10/25/17 16:34 Blood Blood Culture - Final NO GROWTH AFTER 5 DAYS 10/25/17 16:34 Blood Gram Stain - Final TEST NOT PERFORMED 10/25/17 16:23 Toe Gram Stain - Final 10/25/17 16:23 Toe Wound Culture - Final Staphylococcus Sp Coag Neg Most Recent Lab Values WBC 6.5 K/uL (4.8-10.8) 11/01/17 07:13 RBC 4.43 Mil/uL (4.40-5.90) 11/01/17 07:13 Hgb 13.5 g/dL (12.0-18.0) 11/01/17 07:13 Hct 39.5 % (35.0-51.0) 11/01/17 07:13 MCV 89.2 fL (80.0-94.0) 11/01/17 07:13 MCH 30.4 pg (27.0-31.0) 11/01/17 07:13 MCHC 34.1 g/dL (33.0-37.0) 11/01/17 07:13 RDW 13.6 % (11.5-14.5) 11/01/17 07:13 Plt Count 254 K/uL (130-400) 11/01/17 07:13 MPV 8.8 fL (7.2-11.7) 11/01/17 07:13 Neut % (Auto) 70.4 % (50.0-75.0) 11/01/17 07:13 Lymph % (Auto) 19.2 % (20.0-40.0) L 11/01/17 07:13 Craig % (Auto) 7.1 % (0.0-10.0) 11/01/17 07:13 Eos % (Auto) 2.3 % (0.0-4.0) 11/01/17 07:13 Baso % (Auto) 1.0 % (0.0-2.0) 11/01/17 07:13 Neut # (Auto) 4.6 K/uL (1.8-7.0) 11/01/17 07:13 Lymph # (Auto) 1.2 K/uL (1.0-4.3) 11/01/17 07:13 Craig # (Auto) 0.5 K/uL (0.0-0.8) 11/01/17 07:13 Eos # (Auto) 0.1 K/uL (0.0-0.7) 11/01/17 07:13 Baso # (Auto) 0.1 K/uL (0.0-0.2) 11/01/17 07:13 PT 10.9 SECONDS (9.7-12.2) 10/26/17 06:09 INR 1.0 10/26/17 06:09 APTT 29 SECONDS (21-34) 10/26/17 06:09 Sodium 141 mmol/L (132-148) 11/01/17 07:13 Potassium 4.2 mmol/L (3.6-5.2) 11/01/17 07:13 Chloride 105 mmol/L (98-107) 11/01/17 07:13 Carbon Dioxide 27 mmol/L (22-30) 11/01/17 07:13 Anion Gap 13 (10-20) 11/01/17 07:13 BUN 16 mg/dL (9-20) 11/01/17 07:13 Creatinine 1.2 mg/dL (0.8-1.5) 11/01/17 07:13 Est GFR ( Amer) > 60 11/01/17 07:13 Est GFR (Non-Af Amer) > 60 11/01/17 07:13 POC Glucose (mg/dL) 221 mg/dL (65-110) H 11/01/17 16:08 Random Glucose 294 mg/dL (75-110) H 11/01/17 07:13 Hemoglobin A1c 14.5 % (4.2-6.5) H 10/26/17 06:09 Calcium 8.4 mg/dl (8.6-10.4) L 11/01/17 07:13 Phosphorus 3.7 mg/dL (2.5-4.5) 11/01/17 07:13 Magnesium 2.1 mg/dL (1.6-2.3) 11/01/17 07:13 Total Bilirubin 0.3 mg/dL (0.2-1.3) 11/01/17 07:13 AST 18 U/L (17-59) 11/01/17 07:13 ALT 13 U/L (21-72) L D 11/01/17 07:13 Alkaline Phosphatase 71 U/L (38-126) 11/01/17 07:13 Total Protein 6.6 g/dL (6.3-8.3) 11/01/17 07:13 Albumin 2.8 g/dL (3.5-5.0) L 11/01/17 07:13 Globulin 3.8 gm/dL (2.2-3.9) 11/01/17 07:13 Albumin/Globulin Ratio 0.8 (1.0-2.1) L 11/01/17 07:13 Triglycerides 118 mg/dL (0-149) D 10/26/17 06:09 Cholesterol 154 mg/dL (0-199) 10/26/17 06:09 LDL Cholesterol Direct 105 mg/dL (0-129) 10/26/17 06:09 HDL Cholesterol 26 mg/dL (30-70) L 10/26/17 06:09 TSH 3rd Generation 0.67 mIU/L (0.46-4.68) 10/26/17 06:09 Vancomycin Peak 23.7 ug/mL (30.0-40.0) L 10/30/17 12:10 Vancomycin Trough 10.3 ug/mL (5.0-10.0) H 10/30/17 06:45 Serum Ketones Small (NEGATIVE) 10/25/17 16:43 - Hospital Course Hospital Course: Upon admission: 47 year old male with past medical history of uncontrolled diabetes, history of diabetic foot ulcer, left ventricular dysfunction status post biventricular ICD , HTN presents to hospital with abscess of left 2nd toe that began about 1 month ago. Patient states that something heavy fell on his foot. Since then, toe has become progressively red and swollen. There was a small wound that formed on the toe that has scabbed over which the patient picked at. Patient did not apply any ointment to the wound. Patient states that he has not take any of his medications for about 3 months. He has poor follow up with PMD, Dr. Koehler. Patient denies having any F/C at home. Denies having any CP, abd pain, N /V/D/C, dysuria, hematuria. patient does complain of SOB with exertion for past few months. Hospital course: Patient was admitted for diabetic ulceration of the toe. Dr. Soler and Dr. Nicholas were consulted. Imaging was done to rule out osteomyelitis as follows: * Left Foot XR: Interval soft tissue and bone loss at the distal 2nd digit consider infectious or inflammatory process versus postoperative change or posttraumatic etiology. Osteomyelitis is not excluded as discussed above. Similar pattern is seen affecting the distal most segment of the left 5th metatarsal bone and further clinical correlation is advised. Diffuse dorsal foot soft tissue edema as well as at least at the forefoot and midfoot plantar soft tissues as well. * Right Foot XR: Status post interval therefore the 5th transmetatarsal amputation. Mild forefoot and ankle soft tissue edema suggested as discussed above. No overt radiographic sign of osteomyelitis at this time. MRI can be performed for further characterization as clinically warranted as it is more sensitive for osteomyelitis radiography. Degenerative changes 1st and 2nd metatarsophalangeal joints and 2nd digit. * Right Tib/Fib: No radiographic evidence for bony erosion or destruction to suggest osteomyelitis. * CT left foot: 1. At the level of the head of the 2nd proximal phalanx best seen on the sagittal series 602, image 36, there is some mild cortical irregularity at the dorsal aspect of the bony cortex. This is nonspecific and underlying osteomyelitis at this level cannot be excluded. Correlation with MRI and or 3 phase bone scan would be helpful for further evaluation of this region. 2. Cortical irregularity with dysplastic changes noted at the head of the 5th metatarsal bone. This may be the sequelae of chronic postsurgical and/ or chronic osteomyelitic changes and or additional etiology. Superimposed acute osteomyelitic changes cannot entirely be excluded. Clinical correlation. If there is concern for acute osteomyelitis at this level, correlation with MRI and or three-phase bone scan may be helpful if indicated. 3. Bipartite lateral sesamoid bone. 4. Extensive vascular calcifications. 5. Subcutaneous soft tissue swelling and edema seen throughout the visualized foot which may represent underlying cellulitis. Clinical correlation. 6. Mild cortical irregularity along the posterior cortex of the distal tibia and distal fibula, likely chronic. Clinical correlation. * 10/27 arterial doppler: ABIs nondiagnostic due to calcifications of the arterial wall. Wound cultures showed Coag neg staph and Blood cultures were negative. Patient was started on Zosyn 3.375 g Q6H and Vanc 1 g Q12H along with santyl. Patient was scheduled for left 2nd digit arthroplasty for correction of deformity causing pressure ulceration to be done on 10/[address] Valencia was consulted to clear the patient for surgery first due to history of CHF with pacemaker. Dr. Mckenzie was consulted to adjust diabetic medications since patient had an HbA1c 14.5. Patient was treated with insulin and it was adjusted to maintain optimal glucose levels. A copy of the patient's most recent H&P has been attached to give a more complete picture of the patient's diagnosis list and management involved: (1) Diabetic ulcer of left foot Assessment & Plan: * Dr. Nicholas (ID) consulted, help appreciated - As per ID, patient will need a picc line for outpatient long-term antibiotics * Dr. Soler (podiatry) consulted, help appreciated * 10/29: s/p left 2nd digit arthroplasty for correction of deformity causing pressure ulceration POD #2 * Cleared for D/C * Dr. Valencia (cardiology) consulted for pre op risk stratification, help appreciated * Wound cultures: Coag neg staph * Blood cultures negative x24H Imaging (as above) Meds: * Zosyn 3.375 g Q6H * Vanc 1 g Q12H * Vanc Trough 10/28: 9.3 * repeat on 10/30: 10.3 * Tylenol prn for fever * Santyl Status: Acute (2) Uncontrolled diabetes mellitus Assessment & Plan: * Dr. Mckenzie (Endocrine) consulted, help appreciated * HgbA1c 14.5 * Lipid panel: Trig 118, Chol 154, LDL 105, HDL 26 * TSH: 0.67 * Accuchecks ACHS Meds: * Novolin 70/30 24 units ACB and 16 units ACD * Novolin N 30 units SC HS * Sliding scale insulin * Hold metformin * Crestor 5 mg HS * D5NS 100 cc Status: Chronic (3) CHF (congestive heart failure) Assessment & Plan: With AICD Echocardiogram (10/25/17): showed left ventricular function is markedly reduced with diffuse hypokinesis. There is akinesis of the basal-inferiolateral and septal jordan. The left ventricular ejecton fraction is estimated to be 25%. There is borderline mild concentric LVH. The left ventricle is moderately dilated. * Coreg 3.125 mg BID * ASA 81 mg QD * Losartan 50 mg QD * Spironolactone 25 mg QD Status: Chronic (4) Prophylactic measure Assessment & Plan: * DVT: Lovenox 40mg SC daily * GI prophylaxis not indicated Upon discharge: Patient was cleared for discharge by Dr. Turner and consults. The following instructions were provided to the patient: Please take the following medications as prescribed: Aspirin 81 mg daily Carvedilol 6.25 mg twice daily Novolin 70/30 20 units before breakfast and 10 units before dinner Novolin N 20 units at bedtime Losartan 50 mg daily Simvastatin 20 mg at bedtime Spironolactone 25 mg daily Vancomycin 1500 mg intravenously daily for 40 more days (after todays dose) for a total of 42 days Augmentin 500 mg by mouth twice daily for 10 days Florastor 250 mg twice daily - do not take within 2 hours of either antibiotic dose Please follow up with Dr. Koehler and Dr. Soler (your lieutenant colonel) in the [facility] ([phone]) before the end of the week. You will need weekly lab work done including vancomycin trough/peak as well as weekly dressing changes for your left foot. Please note that this is a summary of events. For more details, please see complete medical record. Discharge Exam - Head Exam Head Exam: ATRAUMATIC, NORMOCEPHALIC - Eye Exam Eye Exam: EOMI, Normal appearance, PERRL Pupil Exam: NORMAL ACCOMODATION, PERRL - Respiratory Exam Respiratory Exam: Clear to PA & Lateral, NORMAL BREATHING PATTERN, UNREMARKABLE - Cardiovascular Exam Cardiovascular Exam: REGULAR RHYTHM, +S1, +S2 - GI/Abdominal Exam GI & Abdominal Exam: Normal Bowel Sounds, Unremarkable - Exam Speculum exam: NORMAL SPECULUM EXAM - Extremities Exam Extremities exam: calf tenderness, normal inspection, pedal edema - Neurological Exam Neurological exam: Alert, Normal Gait, Oriented x3, Reflexes Normal - Psychiatric Exam Psychiatric exam: Normal Affect, Normal Mood - Skin Skin Exam: Dry, Intact, Normal Color, Warm Discharge Plan - Discharge Medications Prescriptions: Amoxicillin/Clavulanate [Augmentin 500 MG-125 MG] 1 tab PO BID #20 tab Aspirin [Aspirin Chewable] 81 mg PO DAILY #30 chew Carvedilol [Coreg] 6.25 mg PO BID #60 tab Insulin Human (NPH)/Regular [Novolin 70/30 (70/30 units/ml) 10 ml] 20 units SC ACB #1 bottle Insulin Human (NPH)/Regular [Novolin 70/30 (70/30 units/ml) 10 ml] 10 units SC ACD #1 bottle Insulin Human Isophane (NPH) [Novolin N] 20 unit SC HS #1 bottle Losartan [Cozaar] 50 mg PO DAILY #30 tab Saccharomyces Boulardi [Florastor] 250 mg PO BID #90 cap Simvastatin [Zocor] 20 mg PO HS #30 tablet Spironolactone [Aldactone] 25 mg PO DAILY #30 tab Vancomycin [Vancomycin Inj] 1,500 mg IVPB Q24H 40 Days - Follow Up Plan Condition: GOOD Disposition: HOME/ ROUTINE Instructions: Insulin NPH, Saccharomyces boulardii, Diabetic Foot Ulcer (DC), Diabetes Diet , Diabetes Type 2 (DC), Amoxicillin and Clavulanate, Aspirin, Carvedilol, Losartan, Spironolactone, Vancomycin Additional Instructions: Please take the following medications as prescribed: Aspirin 81 mg daily Carvedilol 6.25 mg twice daily Novolin 70/30 20 units before breakfast and 10 units before dinner Novolin N 20 units at bedtime Losartan 50 mg daily Simvastatin 20 mg at bedtime Spironolactone 25 mg daily Vancomycin 1500 mg intravenously daily for 40 more days (after todays dose) for a total of 42 days Augmentin 500 mg by mouth twice daily for 10 days Florastor 250 mg twice daily - do not take within 2 hours of either antibiotic dose Please follow up with Dr. Koehler and Dr. Soler (your lieutenant colonel) in the [facility] ([phone]) before the end of the week. You will need weekly lab work done including vancomycin trough/peak as well as weekly dressing changes for your left foot. Referrals: [facility] at [facility] [Outside] Yovana Koehler MD [Staff Provider] -
--- NOTE | 2017-11-01 21:56 | PN ---
DATE: 11/01/2017 SUBJECTIVE: I spoke with Dr. Soler who was saying that he took out the distal part of the second tube, but the rest was clamped, he is going to follow, and if it gets worse, he may have to need more surgery if needed, but he is going to follow up. This patient's CAT scan showed, maybe, possible for osteomyelitis, and he seems to be agreeing to come to the outpatient infusion center to get antibiotics. At this time, I decided to put a PICC line in and give him vancomycin IV. However, his creatinine is 1.2, so it is tricky, but we will need to monitor the creatinine and his levels as outpatient, and he needs to follow in a medical clinic with Dr. Koehler, and he is agreeable. Today, after much going back and forth with the case work aide, we did get him a PICC line. He seems to be agreeable. We will be following that, and we will give him oral Augmentin for 10 days also. ALLERGIES: HE IS NOT ALLERGIC TO ANY MEDICINES. PHYSICAL EXAMINATION: GENERAL: He offers no new complaints. VITAL SIGNS: T-max is 97.4, pulse 69. Blood pressure is 146/85, respirations are 20. HEENT: Head is atraumatic, normocephalic. NECK: Supple. CARDIOPULMONARY: Text. LUNGS: Clear. No crackles or rales present. HEART: S1 and S2 are regular right now. ABDOMEN: Soft, nontender. No guarding. No rigidity present. EXTREMITIES: There is a dressing on the left foot and had partial surgery and will be going home and coming back for IV antibiotics. His antibiotics, he has restarted these antibiotics from 10/25/2017 and today is 11/01/2017, so he already got 7 days and will be for 5 weeks and vancomycin peak and trough to be monitored, and I also explained to the patient so that he is an educated consumer and will look for his blood work and his creatinine level. Rosa Nicholas MD
[2017-11-01] MEDS ORDERED: (Novolin N) Insulin Human Isophane (NPH) 100 u/ml 10 ml vial SC SCH (22:00)
== END 2017-11-01 21:11 | disposition home or self-care (01) | DRG 982 ==
LOC: C.ER 14:41 → C.9E 17:29 → C.3T 18:57 → OBSVTOIN 10-27 11:22
PROVIDERS: ADMIT Internal Medicine; ATTEND Internal Medicine
PROC: 0QTR0ZZ Resection of Left Toe Phalanx, Open Approach (ICD-10-PCS; principal; 2017-10-28)
PROC: 0HBNXZZ Excision of Left Foot Skin, External Approach (ICD-10-PCS; 2017-10-28)
DX: E11.69 Type 2 diabetes mellitus with other specified complication (principal); M86.172 Other acute osteomyelitis, left ankle and foot; I42.9 Cardiomyopathy, unspecified; I50.22 Chronic systolic (congestive) heart failure; L03.116 Cellulitis of left lower limb; L97.919 Non-pressure chronic ulcer of unspecified part of right lower leg with unspecified severity; E11.621 Type 2 diabetes mellitus with foot ulcer; L97.529 Non-pressure chronic ulcer of other part of left foot with unspecified severity; E11.65 Type 2 diabetes mellitus with hyperglycemia; E78.5 Hyperlipidemia, unspecified; I11.0 Hypertensive heart disease with heart failure; E11.622 Type 2 diabetes mellitus with other skin ulcer; Z79.4 Long term (current) use of insulin

== ENCOUNTER 2017-11-19 11:25 | Emergency (ER) | payer OTHER ==
[2017-11-19 11:25] VITALS: BMI 27.0
[2017-11-19 11:41] VITALS: RESP 16; TEMP 97.9
--- NOTE | 2017-11-19 12:23 | C.PDOC ---
History Of Present Illness 47 year old male, PMHx of hypertension managed by taking spironolactone, presents to the emergency department status-post visit to primary care physician where he received abnormal lab results of elevated potassium. Patient has no medical complaints. Time Seen by Provider: 11/19/17 11:53 Chief Complaint (Nursing): Abnormal Labs History Per: Patient History/Exam Limitations: no limitations Onset/Duration Of Symptoms: Days Current Symptoms Are (Timing): Still Present Reports Recently: Treated By A Physician ([facility]) Recent travel outside of the [place]: No Additional History Per: Patient Past Medical History Reviewed: Historical Data, Nursing Documentation, Vital Signs Vital Signs: Last Vital Signs Temp 97.9 F 11/19/17 11:39 Pulse 89 11/19/17 11:39 Resp 16 11/19/17 11:39 BP 160/67 H 11/19/17 11:39 Pulse Ox 100 11/19/17 14:58 - Medical History PMH: Diabetes, HTN, Hypercholesterolemia Denies: Chronic Kidney Disease Surgical History: Pacemaker - [facility] Procedures DRAINAGE OF L FOOT SUBCU/FASCIA, OPEN APPROACH (07/07/15) EXCISION OF LEFT FOOT SKIN, EXTERNAL APPROACH (10/27/17) EXTRACTION OF RIGHT FOOT SKIN, EXTERNAL APPROACH (10/12/16) FLUOROSCOPY OF LEFT HEART USING LOW OSMOLAR CONTRAST (10/12/16) FLUOROSCOPY OF MULT COR ART USING L OSM CONTRAST (10/12/16) MEASURE OF CARDIAC SAMPL & PRESSURE, L HEART, PERC APPROACH (10/12/16) RESECTION OF LEFT METATARSAL, OPEN APPROACH (07/07/15) RESECTION OF LEFT TOE PHALANX, OPEN APPROACH (10/27/17) Family History: States: Unknown Family Hx - Social History Hx Tobacco Use: No Hx Alcohol Use: No Hx Substance Use: No - Immunization History Hx Tetanus Toxoid Vaccination: No Hx Influenza Vaccination: No Hx Pneumococcal Vaccination: No Review Of Systems Except As Marked, All Systems Reviewed And Found Negative. Constitutional: Negative for: Fever, Chills Cardiovascular: Negative for: Chest Pain Respiratory: Negative for: Shortness of Breath Gastrointestinal: Negative for: Nausea, Vomiting Physical Exam - Physical Exam Appears: Non-toxic, No Acute Distress Skin: Normal Color, Warm, Dry Head: Atraumatic, Normacephalic Eye(s): bilateral: Normal Inspection Neck: Normal ROM, Supple Chest: Symmetrical Cardiovascular: Rhythm Regular Respiratory: Normal Breath Sounds Gastrointestinal/Abdominal: Soft, No Tenderness, No Guarding, No Rebound Extremity: Normal ROM Neurological/Psych: Oriented x3, Normal Speech Gait: Steady ED Course And Treatment - Laboratory Results Result Diagrams: 11/19/17 12:50 11/19/17 12:50 O2 Sat by Pulse Oximetry: 100 (RA) Pulse Ox Interpretation: Normal Progress Note: EKG and labs ordered. Disposition Counseled Patient/Family Regarding: Studies Performed, Diagnosis, Need For Followup - Disposition Referrals: [facility] at [facility] [Outside] Disposition: HOME/ ROUTINE Disposition Time: 15:15 Condition: STABLE Additional Instructions: FOLLOW UP WITH YOUR DOCTOR SCHEDULED , ON WEDNESDAY RETURN TO EMERGENCY ROOM IF YOU HAVE ANY CONCERNING SYMPTOMS SEGUIMIENTO CON LAYNE MDICO SEGN LAYNE HORARIO, EL JUEVES REGRESE AL GHANSHYAM DE EMERGENCIA SI TIENE ALGUNOS SNTOMAS RELACIONADOS Instructions: Hyperkalemia (DC) Forms: mobicanvas (Stateless) Print Language: MOHAWK - POA Present On Arrival: None - Clinical Impression Clinical Impression: Hyperkalemia - Scribe Statement The provider has reviewed the documentation as recorded by the Scribe (Geovanna aCrter) Provider Attestation: All medical record entries made by the Scribe were at my direction and personally dictated by me. I have reviewed the chart and agree that the record accurately reflects my personal performance of the history, physical exam, medical decision making, and the department course for this patient. I have also personally directed, reviewed, and agree with the discharge instructions and disposition.
[2017-11-19 12:57] LABS: BASO # 0.1 K/uL (0.0-0.2); BASO % 1.1 % (0.0-2.0); EOS # 0.3 K/uL (0.0-0.7); EOS % 4.3 % (0.0-4.0); HEMOGLOBIN 14.9 g/dL (12.0-18.0); LYMPH # 1.9 K/uL (1.0-4.3); LYMPH % 27.9 % (20.0-40.0); MEAN CELL VOLUME 90.9 fL (80.0-94.0); MEAN CORPUSCULAR HGB CONC 34.1 g/dL (33.0-37.0); MEAN PLATELET VOLUME 9.7 fL (7.2-11.7); MONO # 0.5 K/uL (0.0-0.8); MONO % 6.9 % (0.0-10.0); NEUT # 4.1 K/uL (1.8-7.0); NEUT % 59.8 % (50.0-75.0); NRBC % 0.1 % (0.0-2.0); RBC 4.8 Mil/uL (4.40-5.90); RED CELL DISTRIBUTION WIDTH 13.8 % (11.5-14.5); WHITE BLOOD COUNT 6.8 K/uL (4.8-10.8)
[2017-11-19 13:41] LABS: ALB/GLOB RATIO 0.8 (1.0-2.1); ALBUMIN 3.9 g/dL (3.5-5.0); ALT/SGPT 27 U/L (21-72); AST/SGOT 30 U/L (17-59); BLOOD UREA NITROGEN 32 mg/dL (9-20); CALCIUM 9.4 mg/dl (8.6-10.4); GFR AFRICAN-AMERICAN > 60; GFR NON-AFRICAN AMERICAN > 60
[2017-11-19] MEDS ORDERED: Sod Polystyrene Sulf 15 gm/60 ml Susp PO STA (15:04)
[2017-11-19] MEDS ORDERED: Sod Polystyrene Sulf 15 gm/60 ml Susp ONE (15:10)
[2017-11-19 15:17] VITALS: BP 156/98; PULSE 71; O2SAT 98
--- NOTE | 2017-11-23 15:53 | CARD ---
APPROVED REPORT EKG Measurement Heart [id number] <Conclusion> Sinus rhythm with ventricular pacemaker Abnormal ECG
== END 2017-11-19 15:15 | disposition home or self-care (01) ==
LOC: C.ER 11:25
DX: E87.5 Hyperkalemia (principal); E11.9 Type 2 diabetes mellitus without complications; E78.00 Pure hypercholesterolemia, unspecified; I10 Essential (primary) hypertension; Z95.0 Presence of cardiac pacemaker

== ENCOUNTER 2018-02-07 15:16 | Observation (INO) | payer OTHER ==
[2018-02-07 15:16] VITALS: BMI 27.0
[2018-02-07 16:02] LABS: BASO # 0.1 K/uL (0.0-0.2); BASO % 0.9 % (0.0-2.0); EOS # 0.2 K/uL (0.0-0.7); EOS % 2.9 % (0.0-4.0); HEMOGLOBIN 13.8 g/dL (12.0-18.0); LYMPH # 1.8 K/uL (1.0-4.3); LYMPH % 29.3 % (20.0-40.0); MEAN CORPUSCULAR HEMOGLOBIN 31.1 pg (27.0-31.0); MEAN CORPUSCULAR HGB CONC 34.5 g/dL (33.0-37.0); MEAN PLATELET VOLUME 9.8 fL (7.2-11.7); MONO # 0.5 K/uL (0.0-0.8); MONO % 7.3 % (0.0-10.0); NEUT # 3.7 K/uL (1.8-7.0); NEUT % 59.6 % (50.0-75.0); NRBC % 0.1 % (0.0-2.0); RBC 4.43 Mil/uL (4.40-5.90); RED CELL DISTRIBUTION WIDTH 13.5 % (11.5-14.5); WHITE BLOOD COUNT 6.2 K/uL (4.8-10.8)
[2018-02-07 16:37] LABS: ALB/GLOB RATIO 1.2 (1.0-2.1); ALBUMIN 4.2 g/dL (3.5-5.0); CALCIUM 9.3 mg/dl (8.6-10.4)
[2018-02-07] MEDS ORDERED: Calcium Gluconate 4.65 MEQ in Dextrose 5% In Water 100 ML IV STA (16:48)
--- NOTE | 2018-02-07 16:49 | C.PDOC ---
History Of Present Illness 47-year-old male, sent to the emergency department by PMD Dr. Kalpesh Toney, for a high Potassium (7). Patient denies any nausea/vomiting, fever, chills, chest pain or any other associated symptoms. No other complaints at this time. Time Seen by Provider: 02/07/18 15:36 Chief Complaint (Nursing): Abnormal Labs History Per: Patient History/Exam Limitations: no limitations Current Symptoms Are (Timing): Still Present Severity: Moderate Past Medical History Reviewed: Historical Data, Nursing Documentation, Vital Signs Vital Signs: Last Vital Signs Temp 97.7 F 02/07/18 15:55 Pulse 86 02/07/18 17:30 Resp 19 02/07/18 17:30 BP 130/70 02/07/18 17:30 Pulse Ox 98 02/07/18 17:45 - Medical History PMH: Diabetes, HTN, Hypercholesterolemia Denies: Chronic Kidney Disease Surgical History: Pacemaker (Lt. sub clavian) - [facility] Procedures DRAINAGE OF L FOOT SUBCU/FASCIA, OPEN APPROACH (07/07/15) EXCISION OF LEFT FOOT SKIN, EXTERNAL APPROACH (10/27/17) EXTRACTION OF RIGHT FOOT SKIN, EXTERNAL APPROACH (10/12/16) FLUOROSCOPY OF LEFT HEART USING LOW OSMOLAR CONTRAST (10/12/16) FLUOROSCOPY OF MULT COR ART USING L OSM CONTRAST (10/12/16) MEASURE OF CARDIAC SAMPL & PRESSURE, L HEART, PERC APPROACH (10/12/16) RESECTION OF LEFT METATARSAL, OPEN APPROACH (07/07/15) RESECTION OF LEFT TOE PHALANX, OPEN APPROACH (10/27/17) Family History: States: No Known Family Hx - Social History Hx Tobacco Use: No Hx Alcohol Use: No Hx Substance Use: No - Immunization History Hx Tetanus Toxoid Vaccination: No Hx Influenza Vaccination: No Hx Pneumococcal Vaccination: No Review Of Systems Except As Marked, All Systems Reviewed And Found Negative. Constitutional: Negative for: Fever, Chills Cardiovascular: Negative for: Chest Pain, Palpitations Respiratory: Negative for: Shortness of Breath Gastrointestinal: Negative for: Nausea, Vomiting Physical Exam - Physical Exam Appears: Non-toxic, No Acute Distress Skin: Normal Color, Warm, Dry, No Rash Head: Atraumatic, Normacephalic Eye(s): bilateral: Normal Inspection Nose: Normal Oral Mucosa: Moist Lips: Normal Appearing Neck: Normal ROM Cardiovascular: Rhythm Regular, No Murmur Respiratory: Normal Breath Sounds, No Accessory Muscle Use Extremity: Normal ROM, No Deformity Neurological/Psych: Oriented x3, Normal Speech ED Course And Treatment - Laboratory Results Result Diagrams: 02/07/18 15:59 02/07/18 15:59 ECG Rhythm: V Paced ECG Interpretation: No Changes From Prior (11/19/2017) Rate From EC O2 Sat by Pulse Oximetry: 98 Pulse Ox Interpretation: Normal (RA) - Radiology CXR: Interpreted by Me CXR Interpretation: Yes: No Acute Disease Medical Decision Making Medical Decision Making: Plan: * Bloodwork * Glucose, Keyaxalate, D50, Insulin, Calcium Gluconate. * acute renal failure * case was d/w hospitalist, patient was accepted to telemetry Disposition - Disposition Disposition: HOSPITALIZED Disposition Time: 17:42 Condition: FAIR - Clinical Impression Clinical Impression: Acute renal failure, Hyperkalemia - Scribe Statement The provider has reviewed the documentation as recorded by the Scribe (Giovany Lin) All medical record entries made by the Scribe were at my direction and personally dictated by me. I have reviewed the chart and agree that the record accurately reflects my personal performance of the history, physical exam, medical decision making, and the department course for this patient. I have also personally directed, reviewed, and agree with the discharge instructions and disposition. Decision To Admit - Pt Status Changed To: Hospital Disposition Of: Observation - . Bed Request Type: Telemetry Admitting Physician: Gilson Laceky Patient Diagnosis: Acute renal failure, Hyperkalemia
[2018-02-07] MEDS ORDERED: Sod Polystyrene Sulf 15 gm/60 ml Susp PO STA (16:51)
[2018-02-07] MEDS ORDERED: (Novolin R) Insulin Human Regular 100 units/ml vial IV STA (16:51)
[2018-02-07] MEDS ORDERED: Dextrose 50% SYRINGE Inj (50 ml) IV STA (16:51)
[2018-02-07] MEDS ORDERED: Sod Polystyrene Sulf 15 gm/60 ml Susp ONE (17:16)
[2018-02-07] MEDS ORDERED: (Novolin R) Insulin Human Regular 100 units/ml vial ONE (17:16)
[2018-02-07] MEDS ORDERED: Dextrose 50% SYRINGE Inj (50 ml) ONE (17:17)
[2018-02-07] MEDS ORDERED: Calcium Gluconate 4.65 mEq/10 ml Inj ONE (17:17)
[2018-02-07 18:16] LABS: URINE BILIRUBIN NEGATIVE (NEGATIVE); URINE BLOOD NEGATIVE (NEGATIVE); URINE CLARITY Clear (Clear); URINE COLOR Yellow (YELLOW); URINE GLUCOSE (UA) 1+ mg/dL (Normal); URINE HYALINE CAST 0-2 /lpf (0-2); URINE LEUKOCYTE ESTERASE NEG Leu/uL (Negative); URINE PROTEIN NEGATIVE (NEGATIVE); URINE UROBILINOGEN NORMAL mg/dL (0.2-1.0)
--- NOTE | 2018-02-07 20:35 | CP.PCM.HP ---
<Gilson Lackey P - Last Filed: 02/07/18 22:03> Meds Allergies/Adverse Reactions: Allergies Allergy/AdvReac Type Severity Reaction Status Date / Time No Known Allergies Allergy Verified 02/07/18 15:26 Results - Vital Signs Recent Vital Signs: Last Vital Signs Temp 98.2 F 02/07/18 20:44 Pulse 76 02/07/18 20:44 Resp 20 02/07/18 20:44 BP 166/94 H 02/07/18 20:44 Pulse Ox 97 02/07/18 20:44 - Labs Result Diagrams: 02/07/18 15:59 02/07/18 15:59 Labs: Laboratory Results - last 24 hr 02/07/18 02/07/18 02/07/18 15:59 15:59 17:59 WBC 6.2 RBC 4.43 Hgb 13.8 Hct 39.9 MCV 90.0 MCH 31.1 H MCHC 34.5 RDW 13.5 Plt Count 184 MPV 9.8 Neut % (Auto) 59.6 Lymph % (Auto) 29.3 [place] % (Auto) 7.3 Eos % (Auto) 2.9 Baso % (Auto) 0.9 Neut # (Auto) 3.7 Lymph # (Auto) 1.8 [place] # (Auto) 0.5 Eos # (Auto) 0.2 Baso # (Auto) 0.1 Sodium 142 Potassium 6.4 H* Chloride 112 H Carbon Dioxide 18 L Anion Gap 18 BUN 57 H Creatinine 1.7 H Est GFR ( Amer) 52 Est GFR (Non-Af Amer) 43 Random Glucose 174 H Calcium 9.3 Total Bilirubin 0.3 AST 18 ALT 29 Alkaline Phosphatase 79 Total Protein 7.6 Albumin 4.2 Globulin 3.4 Albumin/Globulin Ratio 1.2 Urine Color Yellow Urine Clarity Clear Urine pH 5.0 Ur Specific [place] 1.014 Urine Protein Negative Urine Glucose (UA) 1+ H Urine Ketones Negative Urine Blood Negative Urine Nitrate Negative Urine Bilirubin Negative Urine Urobilinogen Normal Ur Leukocyte Esterase Neg Urine WBC (Auto) 1 Hyaline Casts 0-2 Attending/Attestation - Attestation I have personally seen and examined this patient.: Yes I have fully participated in the care of the patient.: Yes I have reviewed all pertinent clinical information: Yes Notes (Text): 02/07/18 22:03 Assessment * Patient sent for hyperkalemia, noticed on out patient lab work, treated with, insulin dextrose, kayexlate in ER * He has been on losartan 50mg daily and spirnolactone 25mg daily, along with coreg 6.25mg bid as heart failure regime * Elevation in creat to 1.7 noticed, patient had diarrhea x last 2-3 days, also consumption of aleeve 3 days ago * Together above 2 likely the etiology of the 1st * H/o CHF EF 25, bv pacemaker * IDDM on 70/30 20-0-10, with lantus 20 hs Plan * Gentle hydration to improve 3rd one of above NS 70ml/hr for 1 to 1.5 lit * Patient may not be candidate for spirnolactone will stop now * Losartan could be started in 1/2 dose in next 4-5 days give chance for kidney to recover, once started bmp could be checked wkly for 2-3 wks, if potassium rises HCTZ/ lasix could be added instead to give appropriate HF regime * No NSAIDS * GI/DVT prophylaxis * Discussed about polypharmay. * See orders for detail. <Nay Bonds E - Last Filed: 02/08/18 02:08> History of Present Illness - History of Present Illness History of Present Illness: CC: Hyperkalemia HPI: Patient is a 47 year old male with past medical history of uncontrolled diabetes, history of diabetic foot ulcer, left ventricular dysfunction status post biventricular ICD, who was sent to the ED by his primary due to noted hyperkalemia on blood work result. Patient reports that he is doing well but did notice that he has been experiencing more fatigue with activity lately and watey BM x4 this past Wednesday and Wednesday. Otherwise, he has no complaint. Patient denies fever, chills, nausea, vomiting, abdominal pain , chest pain, SOB, palpitations, headache, recent travels, sickness or sick contact. PMD: [facility] PMHx: Uncontrolled diabetes, history of diabetic foot ulcer, left ventricular dysfunction status post biventricular ICD PSHx: right 3 toes amputation, appendicitis, left 5th toe partial amputation, AICD placement FHx: Father and Mother: DM Medications: Losartan 50mg PO QD, Spironolactone 25mg PO QD, ASA 81mg PO QD, Novolog 70/30 20 units ACB, Novolog 70/30 10 units ACD and Long-acting insulin ( Cannot recall name) 20units HS Allergies: NKDA Social Hx: Lives with and children. Works has a [employer]. Denies current or former use of tobacco and illicit drug use, occasional ETOH use. Present on Admission - Present on Admission Any Indicators Present on Admission: No Review of Systems - Constitutional Constitutional: Fatigue. absent: Frequent Falls, Headache, Increased Appetite, Night Sweats, Sleep Apnea - EENT Eyes: absent: Blurred Vision, Change in Vision Ears: absent: Dizziness - Cardiovascular Cardiovascular: absent: Chest Pain, Chest Pain with Activity, Dyspnea, Dyspnea on Exertion, Edema, Lightheadedness, Palpitations, Pedal Edema - Respiratory Respiratory: absent: Dyspnea, Dyspnea on Exertion, Wheezing, Chest Congestion - Gastrointestinal Gastrointestinal: absent: Abdominal Pain, Constipation, Cramping, Diarrhea, Hematemesis, Nausea, Vomiting - Genitourinary Genitourinary: absent: Dysuria, Hematuria, Pyuria, Nocturia - Musculoskeletal Musculoskeletal: absent: Numbness, Tingling - Neurological Neurological: absent: Headaches, Tingling - Endocrine Endocrine: Fatigue. absent: Palpitations Past Patient History - Infectious Disease Hx of Infectious Diseases: None - Tetanus Immunizations Tetanus Immunization: Unknown - Past Medical History & Family History Past Medical History?: Yes - Past Social History Smoking Status: Never Smoked - CARDIAC Hx Hypercholesterolemia: Yes Hx Hypertension: Yes Hx Pacemaker: Yes (Lt. sub clavian) - PULMONARY Hx Respiratory Disorders: No - NEUROLOGICAL Hx Neurological Disorder: No - HEENT Hx HEENT Problems: No Hx Cataracts: Yes - RENAL Hx Chronic Kidney Disease: No - ENDOCRINE/METABOLIC Hx Endocrine Disorders: Yes Hx Diabetes Mellitus Type 1: Yes - HEMATOLOGICAL/ONCOLOGICAL Hx Blood Disorders: No - INTEGUMENTARY Hx Dermatological Problems: No - MUSCULOSKELETAL/RHEUMATOLOGICAL Hx Musculoskeletal Disorders: No Hx Falls: No - GASTROINTESTINAL Hx Gastrointestinal Disorders: No - GENITOURINARY/GYNECOLOGICAL Hx Genitourinary Disorders: No - PSYCHIATRIC Hx Substance Use: No - SURGICAL HISTORY Hx Surgeries: Yes Other/Comment: Right 3 digits amputation foot - ANESTHESIA Hx Anesthesia: Yes Hx Anesthesia Reactions: No Hx Malignant Hyperthermia: No Physical Exam - Constitutional Appears: No Acute Distress - Head Exam Head Exam: ATRAUMATIC, NORMAL INSPECTION - Eye Exam Eye Exam: EOMI, Normal appearance, PERRL - ENT Exam ENT Exam: Mucous Membranes Moist - Respiratory Exam Respiratory Exam: Clear to Auscultation Bilateral, NORMAL BREATHING PATTERN. absent: Accessory Muscle Use, Chest Wall Tenderness, Prolonged Expiratory Phase , Rhonchi, Wheezes, Respiratory Distress - Cardiovascular Exam Cardiovascular Exam: REGULAR RHYTHM, +S1, +S2. absent: Diastolic murmur, Systolic Murmur - GI/Abdominal Exam GI & Abdominal Exam: Normal Bowel Sounds, Soft. absent: Diminished Bowel Sounds , Distended, Firm, Guarding, Hernia, Tenderness - Extremities Exam Extremities exam: Positive for: normal inspection. Negative for: calf tenderness, joint swelling, pedal edema, tenderness, pedal pulses present Additional comments: Right 3 toes amputation and left 5th toe partial amputation, - Neurological Exam Neurological exam: Alert, Normal Gait, Oriented x3 - Psychiatric Exam Psychiatric exam: Normal Affect - Skin Skin Exam: Normal Color Results - Vital Signs Recent Vital Signs: Last Vital Signs Temp 98.0 F 02/07/18 18:58 Pulse 79 02/07/18 18:58 Resp 16 02/07/18 18:58 BP 99/51 L 02/07/18 18:58 Pulse Ox 100 02/07/18 18:58 - Labs Result Diagrams: 02/07/18 15:59 02/07/18 22:09 Labs: Laboratory Results - last 24 hr 02/07/18 02/07/18 02/07/18 15:59 15:59 17:59 WBC 6.2 RBC 4.43 Hgb 13.8 Hct 39.9 MCV 90.0 MCH 31.1 H MCHC 34.5 RDW 13.5 Plt Count 184 MPV 9.8 Neut % (Auto) 59.6 Lymph % (Auto) 29.3 [place] % (Auto) 7.3 Eos % (Auto) 2.9 Baso % (Auto) 0.9 Neut # (Auto) 3.7 Lymph # (Auto) 1.8 [place] # (Auto) 0.5 Eos # (Auto) 0.2 Baso # (Auto) 0.1 Sodium 142 Potassium 6.4 H* Chloride 112 H Carbon Dioxide 18 L Anion Gap 18 BUN 57 H Creatinine 1.7 H Est GFR ( Amer) 52 Est GFR (Non-Af Amer) 43 Random Glucose 174 H Calcium 9.3 Total Bilirubin 0.3 AST 18 ALT 29 Alkaline Phosphatase 79 Total Protein 7.6 Albumin 4.2 Globulin 3.4 Albumin/Globulin Ratio 1.2 Urine Color Yellow Urine Clarity Clear Urine pH 5.0 Ur Specific [place] 1.014 Urine Protein Negative Urine Glucose (UA) 1+ H Urine Ketones Negative Urine Blood Negative Urine Nitrate Negative Urine Bilirubin Negative Urine Urobilinogen Normal Ur Leukocyte Esterase Neg Urine WBC (Auto) 1 Hyaline Casts 0-2 Assessment & Plan (1) Hyperkalemia Assessment and Plan: Possibly secondary to polypharmacy On admission: 7.2--> 6.4 No noted EKG changes peak T-wave Medication/management: * Kayexalate 30mg Once in the ED * Calcium Gluconate 4.65meq once in the ED\ * Insulin 10 units once in the ED * Will hold home medications Losartan 50mg PO QD, Spironolactone 25mg PO QD---> Discontinuation of spironolactone and withholding losartan until hyperkalemia resolves and restarting at 1/2 dose daily and outpatient potassium level check every 2 weeks * Will monitor with AM labs Status: Acute (2) Diabetes mellitus Assessment and Plan: HgbA1c: 7.1 (02/07/18) Accucheks Novolog 70/30 20 units SC ACB Novolog 70/30 10units SC ACD Lantus 20 units SC HS Lipid panel: Trig 118, Chol 154, LDL 105, HDL 26 (10/26/17) Status: Chronic (3) History of congestive heart failure Assessment and Plan: With AICD Echocardiogram (10/25/17): showed left ventricular function is markedly reduced with diffuse hypokinesis. There is akinesis of the basal-inferiolateral and septal jordan. The left ventricular ejecton fraction is estimated to be 25%. There is borderline mild concentric LVH. The left ventricle is moderately dilated. * Coreg 3.125 mg BID * ASA 81 mg QD * Losartan 50 mg QD ( Held due to hyperkalemia) * Spironolactone 25 mg QD ( Held due to hyperkalemia) Status: Acute (4) EL (acute kidney injury) Assessment and Plan: Possibly secondary to GI losses from acute diarrhea On admission: BUN/CR: 57/1.9 light hydration: NS@ 70MLS/HR Continue to monitor with repeat labs Status: Acute (5) Prophylactic measure Assessment and Plan: GI: Not indicated DVT: SCDs All plans and management discussed with Dr. Lackey. Status: Acute
[2018-02-07] MEDS ORDERED: (Novolin N) Insulin Human Isophane (NPH) 100 u/ml 10 ml vial SC SCH (22:00)
[2018-02-07 22:37] LABS: ALB/GLOB RATIO 1.3 (1.0-2.1); ALT/SGPT 25 U/L (21-72); AST/SGOT 16 U/L (17-59); BLOOD UREA NITROGEN 59 mg/dL (9-20); CALCIUM 9.1 mg/dl (8.6-10.4); GFR AFRICAN-AMERICAN > 60; GFR NON-AFRICAN AMERICAN 50
[2018-02-07] MEDS ORDERED: Sodium Chloride 0.9% 1,000 ML IV SCH (23:30)
[2018-02-08 07:32] LABS: BASO # 0.1 K/uL (0.0-0.2); BASO % 0.9 % (0.0-2.0); EOS # 0.2 K/uL (0.0-0.7); EOS % 2.9 % (0.0-4.0); HEMOGLOBIN 13.4 g/dL (12.0-18.0); LYMPH # 1.9 K/uL (1.0-4.3); LYMPH % 33.5 % (20.0-40.0); MEAN CELL VOLUME 89.6 fL (80.0-94.0); MEAN CORPUSCULAR HEMOGLOBIN 31.1 pg (27.0-31.0); MEAN CORPUSCULAR HGB CONC 34.7 g/dL (33.0-37.0); MEAN PLATELET VOLUME 9.4 fL (7.2-11.7); MONO # 0.4 K/uL (0.0-0.8); MONO % 6.8 % (0.0-10.0); NEUT # 3.1 K/uL (1.8-7.0); NEUT % 55.9 % (50.0-75.0); NRBC % 0.1 % (0.0-2.0); RBC 4.3 Mil/uL (4.40-5.90); RED CELL DISTRIBUTION WIDTH 13.8 % (11.5-14.5); WHITE BLOOD COUNT 5.6 K/uL (4.8-10.8)
[2018-02-08 07:48] LABS: ALB/GLOB RATIO 1.2 (1.0-2.1); ALBUMIN 3.6 g/dL (3.5-5.0); ALT/SGPT 23 U/L (21-72); AST/SGOT 12 U/L (17-59); BLOOD UREA NITROGEN 50 mg/dL (9-20); CALCIUM 9.1 mg/dl (8.6-10.4); GFR AFRICAN-AMERICAN > 60; GFR NON-AFRICAN AMERICAN > 60
[2018-02-08] MEDS: (Novolin 70/30) NPH/Regular 70/30 Units/ml 10 ml vial SC SCH (08:35)
--- NOTE | 2018-02-08 13:17 | CP.PCM.PN ---
Subjective - Date & Time of Evaluation Date of Evaluation: 02/08/18 Time of Evaluation: 18:32 - Subjective Subjective: 47 yo M admitted w/ iatrogenically induced hyperkalemia seen and examined at bedside. Pt reports he is feeling well and remains completely asymptomatic. Pt denies chest pain, palpitations, SOB, nausea, vomiting. Objective - Vital Signs/Intake and Output Vital Signs (last 24 hours): Temp Pulse Resp BP Pulse Ox 97.5 F L 79 18 143/83 98 02/08/18 07:25 02/08/18 12:29 02/08/18 07:25 02/08/18 12:30 02/08/18 08:44 Intake and Output: 02/08/18 02/08/18 06:59 18:59 Intake Total 690 Balance 690 - Medications Medications: Current Medications Aspirin (Aspirin Chewable) 81 mg PO DAILY [facility] Last Admin: 02/08/18 09:29 Dose: 81 mg Carvedilol (Coreg) 6.25 mg PO BID [facility] Last Admin: 02/08/18 09:29 Dose: 6.25 mg Furosemide (Lasix) 20 mg PO DAILY [facility] Last Admin: 02/08/18 12:30 Dose: 20 mg Insulin Glargine (Lantus) 20 unit SC [facility] Insulin Human Isoph/Insulin Regular (Novolin 70/30 (70/30 Units/Ml) 10 Ml) 20 units SC ACB [facility] Last Admin: 02/08/18 08:35 Dose: 20 units Rosuvastatin Calcium (Crestor) 5 mg PO HS [facility] Last Admin: 02/07/18 22:39 Dose: 5 mg - Labs Labs: 02/08/18 07:18 02/08/18 07:18 - Constitutional Appears: Well, Non-toxic, No Acute Distress - Head Exam Head Exam: ATRAUMATIC, NORMAL INSPECTION, NORMOCEPHALIC - Eye Exam Eye Exam: EOMI, Normal appearance - ENT Exam ENT Exam: Mucous Membranes Moist, Normal Exam - Neck Exam Neck Exam: Full ROM, Normal Inspection - Respiratory Exam Respiratory Exam: Clear to Ausculation Bilateral, NORMAL BREATHING PATTERN. absent: Rhonchi, Wheezes - Cardiovascular Exam Cardiovascular Exam: REGULAR RHYTHM, +S1, +S2. absent: Tachycardia, Murmur - GI/Abdominal Exam GI & Abdominal Exam: Soft, Normal Bowel Sounds. absent: Distended, Tenderness - Extremities Exam Extremities Exam: Normal Capillary Refill, Normal Inspection. absent: Calf Tenderness, Pedal Edema - Neurological Exam Neurological Exam: Alert, Awake, Oriented x3 - Psychiatric Exam Psychiatric exam: Normal Affect - Skin Skin Exam: Intact, Normal Color, Warm Assessment and Plan - Assessment and Plan (Free Text) Assessment: 47 yo male w/ PMHx of CHF, DM2 admitted for hyperkalemia found incidentally in [facility] clinic. 1. Hyperkalemia -Potassium upon admission 6.6, improving now 5.4 -given insulin, dextrose, kayexelate in ED -Home meds of losartan 50mg and spironolactone 25mg held 2. CHF -echo October 2017-showed EF~25% -s/p bv ICD -lasix 20mg PO -Coreg 6.25 BID 3. EL -most like 2/2 to diarrhea(2 days) and NSAIDs -hold nephrotoxic agents 4. DM2, chronic, poorly controlled -novolin 70/30 lantus 20u CAD -crestor 5mg -ASA 81mg Ppx -not currently indicated -
[2018-02-08 16:31] VITALS: RESP 20
[2018-02-08] MEDS ORDERED: (Lantus) Insulin Glargine, Recombinant SC SCH (22:00)
[2018-02-09 07:56] VITALS: TEMP 98.2; O2SAT 99
[2018-02-09 08:03] LABS: BASO # 0.1 K/uL (0.0-0.2); BASO % 0.9 % (0.0-2.0); EOS # 0.2 K/uL (0.0-0.7); EOS % 3.3 % (0.0-4.0); HEMOGLOBIN 13.7 g/dL (12.0-18.0); LYMPH # 1.7 K/uL (1.0-4.3); LYMPH % 27.5 % (20.0-40.0); MEAN CORPUSCULAR HEMOGLOBIN 31.3 pg (27.0-31.0); MEAN CORPUSCULAR HGB CONC 34.7 g/dL (33.0-37.0); MEAN PLATELET VOLUME 9.8 fL (7.2-11.7); MONO # 0.5 K/uL (0.0-0.8); MONO % 7.6 % (0.0-10.0); NEUT # 3.8 K/uL (1.8-7.0); NEUT % 60.7 % (50.0-75.0); RBC 4.39 Mil/uL (4.40-5.90); RED CELL DISTRIBUTION WIDTH 13.4 % (11.5-14.5); WHITE BLOOD COUNT 6.2 K/uL (4.8-10.8)
[2018-02-09] MEDS: (Novolin 70/30) NPH/Regular 70/30 Units/ml 10 ml vial SC SCH (08:23)
[2018-02-09 08:24] LABS: ALB/GLOB RATIO 1.2 (1.0-2.1); ALBUMIN 4.1 g/dL (3.5-5.0); ALT/SGPT 25 U/L (21-72); AST/SGOT 15 U/L (17-59); BLOOD UREA NITROGEN 42 mg/dL (9-20); CALCIUM 9.5 mg/dl (8.6-10.4); GFR AFRICAN-AMERICAN > 60; GFR NON-AFRICAN AMERICAN > 60
--- NOTE | 2018-02-09 09:40 | CP.PCM.PN ---
Objective - Vital Signs/Intake and Output Vital Signs (last 24 hours): Temp Pulse Resp BP Pulse Ox 98.2 F 65 20 160/89 H 99 02/09/18 07:25 02/09/18 08:02 02/09/18 07:25 02/09/18 09:25 02/09/18 07:25 Intake and Output: 02/09/18 02/09/18 06:59 18:59 Intake Total 300 Output Total 500 Balance -200 - Medications Medications: Current Medications Aspirin (Aspirin Chewable) 81 mg PO DAILY [facility] Last Admin: 02/09/18 09:25 Dose: 81 mg Carvedilol (Coreg) 6.25 mg PO BID [facility] Last Admin: 02/09/18 09:25 Dose: 6.25 mg Furosemide (Lasix) 20 mg PO DAILY [facility] Last Admin: 02/09/18 09:25 Dose: 20 mg Insulin Glargine (Lantus) 20 unit SC HS [facility] Last Admin: 02/08/18 21:45 Dose: 20 units Insulin Human Isoph/Insulin Regular (Novolin 70/30 (70/30 Units/Ml) 10 Ml) 20 units SC ACB [facility] Last Admin: 02/09/18 08:23 Dose: 20 units Rosuvastatin Calcium (Crestor) 5 mg PO HS [facility] Last Admin: 02/08/18 22:30 Dose: 5 mg - Labs Labs: 02/09/18 07:41 02/09/18 07:41
[2018-02-09] MEDS ORDERED: Sod Polystyrene Sulf 15 gm/60 ml Susp PO ONE (11:28)
[2018-02-09 13:42] VITALS: BP 145/84; PULSE 81
--- NOTE | 2018-02-09 13:50 | CP.PCM.DIS ---
<Divine Calderón - Last Filed: 02/09/18 13:59> Provider - Provider Date of Admission: 02/07/18 17:41 Attending physician: iGlson Lackey MD Primary care physician: Dr. Koehler Time Spent in preparation of Discharge (in minutes): 29 Diagnosis - Discharge Diagnosis (1) Hyperkalemia Status: Acute Comment: Patient responded to kayexelate. Also held Aldactone and Losartan. Patient was asymptomatic during hospitalization (2) History of congestive heart failure Status: Acute Comment: Patient is currently stable, not short of breath. He has a history of ICD. Temporarily holding Losartan and Aldactone (3) Diabetes mellitus Status: Chronic Comment: Currently stable during this hospitalization Hospital Course - Lab Results Lab Results: Most Recent Lab Values WBC 6.2 K/uL (4.8-10.8) 02/09/18 07:41 RBC 4.39 Mil/uL (4.40-5.90) L 02/09/18 07:41 Hgb 13.7 g/dL (12.0-18.0) 02/09/18 07:41 Hct 39.5 % (35.0-51.0) 02/09/18 07:41 MCV 90.0 fL (80.0-94.0) 02/09/18 07:41 MCH 31.3 pg (27.0-31.0) H 02/09/18 07:41 MCHC 34.7 g/dL (33.0-37.0) 02/09/18 07:41 RDW 13.4 % (11.5-14.5) 02/09/18 07:41 Plt Count 180 K/uL (130-400) 02/09/18 07:41 MPV 9.8 fL (7.2-11.7) 02/09/18 07:41 Neut % (Auto) 60.7 % (50.0-75.0) 02/09/18 07:41 Lymph % (Auto) 27.5 % (20.0-40.0) 02/09/18 07:41 Jones % (Auto) 7.6 % (0.0-10.0) 02/09/18 07:41 Eos % (Auto) 3.3 % (0.0-4.0) 02/09/18 07:41 Baso % (Auto) 0.9 % (0.0-2.0) 02/09/18 07:41 Neut # (Auto) 3.8 K/uL (1.8-7.0) 02/09/18 07:41 Lymph # (Auto) 1.7 K/uL (1.0-4.3) 02/09/18 07:41 Jones # (Auto) 0.5 K/uL (0.0-0.8) 02/09/18 07:41 Eos # (Auto) 0.2 K/uL (0.0-0.7) 02/09/18 07:41 Baso # (Auto) 0.1 K/uL (0.0-0.2) 02/09/18 07:41 Sodium 143 mmol/L (132-148) 02/09/18 07:41 Potassium 5.4 mmol/L (3.6-5.2) H 02/09/18 07:41 Chloride 111 mmol/L (98-107) H 02/09/18 07:41 Carbon Dioxide 20 mmol/L (22-30) L 02/09/18 07:41 Anion Gap 17 (10-20) 02/09/18 07:41 BUN 42 mg/dL (9-20) H 02/09/18 07:41 Creatinine 1.2 mg/dL (0.8-1.5) 02/09/18 07:41 Est GFR ( Amer) > 60 02/09/18 07:41 Est GFR (Non-Af Amer) > 60 02/09/18 07:41 POC Glucose (mg/dL) 177 mg/dL (65-110) H 02/09/18 11:35 Random Glucose 149 mg/dL (75-110) H 02/09/18 07:41 Calcium 9.5 mg/dl (8.6-10.4) 02/09/18 07:41 Phosphorus 4.1 mg/dL (2.5-4.5) 02/09/18 07:41 Magnesium 2.0 mg/dL (1.6-2.3) 02/09/18 07:41 Total Bilirubin 0.4 mg/dL (0.2-1.3) 02/09/18 07:41 AST 15 U/L (17-59) L D 02/09/18 07:41 ALT 25 U/L (21-72) 02/09/18 07:41 Alkaline Phosphatase 77 U/L (38-126) 02/09/18 07:41 Total Protein 7.4 g/dL (6.3-8.3) 02/09/18 07:41 Albumin 4.1 g/dL (3.5-5.0) 02/09/18 07:41 Globulin 3.3 gm/dL (2.2-3.9) 02/09/18 07:41 Albumin/Globulin Ratio 1.2 (1.0-2.1) 02/09/18 07:41 Urine Color Yellow (YELLOW) 02/07/18 17:59 Urine Clarity Clear (Clear) 02/07/18 17:59 Urine pH 5.0 (5.0-8.0) 02/07/18 17:59 Ur Specific [place] 1.014 (1.003-1.030) 02/07/18 17:59 Urine Protein Negative mg/dL (NEGATIVE) 02/07/18 17:59 Urine Glucose (UA) 1+ mg/dL (Normal) H 02/07/18 17:59 Urine Ketones Negative mg/dL (NEGATIVE) 02/07/18 17:59 Urine Blood Negative (NEGATIVE) 02/07/18 17:59 Urine Nitrate Negative (NEGATIVE) 02/07/18 17:59 Urine Bilirubin Negative (NEGATIVE) 02/07/18 17:59 Urine Urobilinogen Normal mg/dL (0.2-1.0) 02/07/18 17:59 Ur Leukocyte Esterase Neg Deanna/uL (Negative) 02/07/18 17:59 Urine WBC (Auto) 1 /hpf (0-5) 02/07/18 17:59 Hyaline Casts 0-2 /lpf (0-2) 02/07/18 17:59 - Hospital Course Hospital Course: 47 year old male with a past medical history of CHF and Diabetes, who was seen at the [facility] clinic, and was found to have Hyperkalemia. He was sent to the ED, and admitted for monitoring and lowering of potassium. His Losartan and Aldactone were held. He was also given Kayexelate two times. Review of EKG shows no elevated T waves. Review of his telemetry showed NSR in the 90s. His CHF was stable during his hospitalization. Blood glucose monitored as well. From the HPI "PI: Patient is a 47 year old male with past medical history of uncontrolled diabetes, history of diabetic foot ulcer, left ventricular dysfunction status post biventricular ICD, who was sent to the ED by his primary due to noted hyperkalemia on blood work result. Patient reports that he is doing well but did notice that he has been experiencing more fatigue with activity lately and watey BM x4 this past Wednesday and Wednesday. Otherwise, he has no complaint. Patient denies fever, chills, nausea, vomiting, abdominal pain , chest pain, SOB, palpitations, headache, recent travels, sickness or sick contact." Discharge Exam - Head Exam Head Exam: ATRAUMATIC, NORMAL INSPECTION, NORMOCEPHALIC - Eye Exam Eye Exam: EOMI, Normal appearance - ENT Exam ENT Exam: Mucous Membranes Moist - Respiratory Exam Respiratory Exam: NORMAL BREATHING PATTERN, UNREMARKABLE - Cardiovascular Exam Cardiovascular Exam: REGULAR RHYTHM, +S1, +S2. absent: Systolic Murmur - GI/Abdominal Exam GI & Abdominal Exam: Normal Bowel Sounds, Soft, Unremarkable. absent: Tenderness - Neurological Exam Neurological exam: Alert, CN II-XII Intact, Normal Gait, Oriented x3 - Psychiatric Exam Psychiatric exam: Normal Affect, Normal Mood - Skin Skin Exam: Intact, Normal Color, Warm Discharge Plan - Follow Up Plan Condition: FAIR Disposition: HOME/ ROUTINE Instructions: Heart Healthy Diet, Diabetes Exchange Diet, Heart Failure, Adult (DC), Carbohydrate Counting Diet, Kidney Disease Diet (For People Not on Dialysis), Diabetes Diet , Acute Kidney Failure (DC), Hyperkalemia (DC) Additional Instructions: Please hold off on taking you Aldactone and Losartan until you can follow up with your primary medical doctor. Por favor, deje de jude Aldactone and Losartan hasta que pueda hacer un seguimiento con new mdico de cabecera. <Bryant Hernandez H - Last Filed: 02/09/18 17:24> Provider - Provider Date of Admission: 02/07/18 17:41 Attending physician: Gilson Lackey MD Hospital Course - Lab Results Lab Results: Most Recent Lab Values WBC 6.2 K/uL (4.8-10.8) 02/09/18 07:41 RBC 4.39 Mil/uL (4.40-5.90) L 02/09/18 07:41 Hgb 13.7 g/dL (12.0-18.0) 02/09/18 07:41 Hct 39.5 % (35.0-51.0) 02/09/18 07:41 MCV 90.0 fL (80.0-94.0) 02/09/18 07:41 MCH 31.3 pg (27.0-31.0) H 02/09/18 07:41 MCHC 34.7 g/dL (33.0-37.0) 02/09/18 07:41 RDW 13.4 % (11.5-14.5) 02/09/18 07:41 Plt Count 180 K/uL (130-400) 02/09/18 07:41 MPV 9.8 fL (7.2-11.7) 02/09/18 07:41 Neut % (Auto) 60.7 % (50.0-75.0) 02/09/18 07:41 Lymph % (Auto) 27.5 % (20.0-40.0) 02/09/18 07:41 Jones % (Auto) 7.6 % (0.0-10.0) 02/09/18 07:41 Eos % (Auto) 3.3 % (0.0-4.0) 02/09/18 07:41 Baso % (Auto) 0.9 % (0.0-2.0) 02/09/18 07:41 Neut # (Auto) 3.8 K/uL (1.8-7.0) 02/09/18 07:41 Lymph # (Auto) 1.7 K/uL (1.0-4.3) 02/09/18 07:41 Jones # (Auto) 0.5 K/uL (0.0-0.8) 02/09/18 07:41 Eos # (Auto) 0.2 K/uL (0.0-0.7) 02/09/18 07:41 Baso # (Auto) 0.1 K/uL (0.0-0.2) 02/09/18 07:41 Sodium 143 mmol/L (132-148) 02/09/18 07:41 Potassium 5.4 mmol/L (3.6-5.2) H 02/09/18 07:41 Chloride 111 mmol/L (98-107) H 02/09/18 07:41 Carbon Dioxide 20 mmol/L (22-30) L 02/09/18 07:41 Anion Gap 17 (10-20) 02/09/18 07:41 BUN 42 mg/dL (9-20) H 02/09/18 07:41 Creatinine 1.2 mg/dL (0.8-1.5) 02/09/18 07:41 Est GFR ( Amer) > 60 02/09/18 07:41 Est GFR (Non-Af Amer) > 60 02/09/18 07:41 POC Glucose (mg/dL) 177 mg/dL (65-110) H 02/09/18 11:35 Random Glucose 149 mg/dL (75-110) H 02/09/18 07:41 Calcium 9.5 mg/dl (8.6-10.4) 02/09/18 07:41 Phosphorus 4.1 mg/dL (2.5-4.5) 02/09/18 07:41 Magnesium 2.0 mg/dL (1.6-2.3) 02/09/18 07:41 Total Bilirubin 0.4 mg/dL (0.2-1.3) 02/09/18 07:41 AST 15 U/L (17-59) L D 02/09/18 07:41 ALT 25 U/L (21-72) 02/09/18 07:41 Alkaline Phosphatase 77 U/L (38-126) 02/09/18 07:41 Total Protein 7.4 g/dL (6.3-8.3) 02/09/18 07:41 Albumin 4.1 g/dL (3.5-5.0) 02/09/18 07:41 Globulin 3.3 gm/dL (2.2-3.9) 02/09/18 07:41 Albumin/Globulin Ratio 1.2 (1.0-2.1) 02/09/18 07:41 Urine Color Yellow (YELLOW) 02/07/18 17:59 Urine Clarity Clear (Clear) 02/07/18 17:59 Urine pH 5.0 (5.0-8.0) 02/07/18 17:59 Ur Specific [place] 1.014 (1.003-1.030) 02/07/18 17:59 Urine Protein Negative mg/dL (NEGATIVE) 02/07/18 17:59 Urine Glucose (UA) 1+ mg/dL (Normal) H 02/07/18 17:59 Urine Ketones Negative mg/dL (NEGATIVE) 02/07/18 17:59 Urine Blood Negative (NEGATIVE) 02/07/18 17:59 Urine Nitrate Negative (NEGATIVE) 02/07/18 17:59 Urine Bilirubin Negative (NEGATIVE) 02/07/18 17:59 Urine Urobilinogen Normal mg/dL (0.2-1.0) 02/07/18 17:59 Ur Leukocyte Esterase Neg Deanna/uL (Negative) 02/07/18 17:59 Urine WBC (Auto) 1 /hpf (0-5) 02/07/18 17:59 Hyaline Casts 0-2 /lpf (0-2) 02/07/18 17:59 Attending/Attestation - Attestation I have personally seen and examined this patient.: Yes I have fully participated in the care of the patient.: Yes I have reviewed all pertinent clinical information, including history, physical exam and plan: Yes Notes (Text): 02/09/18 17:20 Medical attending: Patient was seen and examined by me. Agree with the above note by the resident The patient was not in any acute distress. He reported that since admission and before that even he felt ok. He was givine instructions to temporarily hold on the aldactone as well as the losartgan until he can follow up with the [facility]. He has had several doses of Kayexelate while here. Bryant Hernandez
--- NOTE | 2018-02-10 13:51 | CARD ---
APPROVED REPORT Date of service: 02/07/2018 EKG Measurement Heart [id number] <Conclusion> 100% paced beats Dual chamber pacemaker Abnormal ECG
--- NOTE | 2018-02-10 14:02 | CARD ---
APPROVED REPORT Date of service: 02/07/2018 EKG Measurement Heart [id number] <Conclusion> Sinus rhythm with frequent ventricular-paced complexes Left axis deviation Left ventricular hypertrophy with QRS widening and repolarization abnormality Cannot rule out Anterior infarct, age undetermined Abnormal ECG
== END 2018-02-09 15:05 | disposition home or self-care (01) ==
LOC: C.ER 15:16 → C.9E 17:41 → C.6T 18:37
PROVIDERS: ADMIT Internal Medicine; ATTEND Internal Medicine
DX: E87.5 Hyperkalemia (principal); E10.621 Type 1 diabetes mellitus with foot ulcer; L97.509 Non-pressure chronic ulcer of other part of unspecified foot with unspecified severity; E10.65 Type 1 diabetes mellitus with hyperglycemia; I50.9 Heart failure, unspecified; Z79.4 Long term (current) use of insulin; Z95.810 Presence of automatic (implantable) cardiac defibrillator
CPT/HCPCS: 36415; 80053; 81001; 82948; 83735; 84100; 85025; 93005; 99285; G0378; J0610; J7030

== ENCOUNTER 2018-05-27 12:04 | Inpatient (IN) | payer MEDICAID, OTHER ==
[2018-05-27 12:04] VITALS: BMI 27.0
--- NOTE | 2018-05-27 13:30 | C.PDOC ---
History Of Present Illness 48 y/o male with iddm and cad, s/p stent brought to ed by family for feeling unwell since . pt has not taken his insulin since , has not been eating. reports sugars have been over 100, not low. family sts pt has fallen multiple times when getting up (has not hit head) due to feeling dizzy; blood sugars checked after pt fell and were normal. 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 denies chest pain. c/o sob; also has been coughing.no known fevers Time Seen by Provider: 05/27/18 12:07 Chief Complaint (Nursing): Weakness/Neurological Deficit History Per: Patient, Family History/Exam Limitations: no limitations Onset/Duration Of Symptoms: Days (4) Current Symptoms Are (Timing): Worse Activity At Onset Of Symptoms: Had Just Stood up Associated Symptoms Preceding Syncopal Episode: Worse With Standing Seizure Or Post-ictal Symptoms: None Possible Causative Factor(s): Lightheaded W/Exertion, Decreased PO Intake Fall Associated With With Symptoms: No Injury As Result Of Fall Past Medical History Reviewed: Historical Data, Nursing Documentation, Vital Signs Vital Signs: Last Vital Signs Temp 98.9 F 05/27/18 12:19 Pulse 129 H 05/27/18 12:19 Resp 20 05/27/18 12:19 BP 134/81 05/27/18 12:19 Pulse Ox 95 05/27/18 12:19 - Medical History PMH: CAD, CHF, Diabetes, HTN, Hypercholesterolemia, Chronic Kidney Disease Surgical History: Pacemaker (left side) - [facility] Procedures DRAINAGE OF L FOOT SUBCU/FASCIA, OPEN APPROACH (07/07/15) EXCISION OF LEFT FOOT SKIN, EXTERNAL APPROACH (10/27/17) EXTRACTION OF RIGHT FOOT SKIN, EXTERNAL APPROACH (10/12/16) FLUOROSCOPY OF LEFT HEART USING LOW OSMOLAR CONTRAST (10/12/16) FLUOROSCOPY OF MULT COR ART USING L OSM CONTRAST (10/12/16) MEASURE OF CARDIAC SAMPL & PRESSURE, L HEART, PERC APPROACH (10/12/16) RESECTION OF LEFT METATARSAL, OPEN APPROACH (07/07/15) RESECTION OF LEFT TOE PHALANX, OPEN APPROACH (10/27/17) Family History: States: Unknown Family Hx - Social History Hx Tobacco Use: No Hx Alcohol Use: No Hx Substance Use: No - Immunization History Hx Tetanus Toxoid Vaccination: No Hx Influenza Vaccination: No Hx Pneumococcal Vaccination: No Review Of Systems Constitutional: Positive for: Fever (feels hot), Chills Eyes: Negative for: Pain ENT: Positive for: Throat Pain. Negative for: Ear Pain Cardiovascular: Positive for: Light Headedness. Negative for: Chest Pain Respiratory: Positive for: Cough. Negative for: Shortness of Breath Gastrointestinal: Positive for: Nausea. Negative for: Abdominal Pain, Diarrhea Musculoskeletal: Negative for: Neck Pain Skin: Negative for: Rash Neurological: Positive for: Dizziness, Other (multiple falls). Negative for: Weakness, Headache Physical Exam - Physical Exam Appears: Toxic, Chronically Ill Skin: Normal Color, Other (hot) Head: Atraumatic, Normacephalic Eye(s): bilateral: Normal Inspection, Other (conjunctival irritation) Ear(s): Bilateral: Normal Nose: No Discharge Oral Mucosa: Dry Throat: No Erythema, No Exudate Neck: Supple (no meningeal signs) Chest: Symmetrical, No Deformity, No Tenderness, Other (device in left upper chest wall) Cardiovascular: Other (tachycardic) Respiratory: No Accessory Muscle Use, Other (bibasilar crackles about one third up, tachypneic) Neurological/Psych: Oriented x3, Normal Speech, Normal Cognition, Normal Cranial Nerves, Normal Motor, Normal Sensation ED Course And Treatment - Laboratory Results Result Diagrams: 05/27/18 13:20 05/27/18 13:20 ECG: Interpreted By Me, Viewed By Al ECG Rhythm: V Paced ECG Interpretation: Abnormal Rate From EC O2 Sat by Pulse Oximetry: 95 Medical Decision Making Medical Decision Making: pt with multiple medical complaints and multiple abnormalities found fever, nstemi, hyponatremia, bandemia). discussed with Dr King, consulted with Dr Lulu Conti from ICU; pt may go to to floor per Dr Conti. Disposition Discussed With : Rosetta King Doctor Will See Patient In The: Hospital - Disposition Disposition: HOME/ ROUTINE Disposition Time: 16:00 Condition: SERIOUS - Clinical Impression Clinical Impression: Hyponatremia, NSTEMI (non-ST elevated myocardial infarction), Bandemia, CHF exacerbation
[2018-05-27 13:31] LABS: HEMOGLOBIN 12.5 g/dL (12.0-18.0); MEAN PLATELET VOLUME 10.2 fL (7.2-11.7); MONO # 0.4 K/uL (0.0-0.8); NEUT # 9.5 K/uL (1.8-7.0)
[2018-05-27 13:34] LABS: VENOUS BLOOD GAS BASE EXCESS 2.8 mmol/L (0.0-2.0); VENOUS BLOOD GAS PCO2 40 mmHg (40-60); VENOUS BLOOD GAS PO2 21 mm/Hg (30-55); VENOUS BLOOD PH 7.44 (7.32-7.43)
[2018-05-27 13:43] LABS: BASO % 0.2 % (0.0-2.0); EOS # 0.1 K/uL (0.0-0.7); EOS % 0.5 % (0.0-4.0); LYMPH # 0.4 K/uL (1.0-4.3); LYMPH % 3.6 % (20.0-40.0); MEAN CELL VOLUME 89.3 fL (80.0-94.0); MEAN CORPUSCULAR HEMOGLOBIN 30.7 pg (27.0-31.0); MEAN CORPUSCULAR HGB CONC 34.4 g/dL (33.0-37.0); MONO % 3.5 % (0.0-10.0); NEUT % 92.2 % (50.0-75.0); RBC 4.08 Mil/uL (4.40-5.90); RED CELL DISTRIBUTION WIDTH 13.1 % (11.5-14.5)
[2018-05-27 13:44] LABS: PLATELET COUNT 95 K/uL (130-400); WHITE BLOOD COUNT 10.4 K/uL (4.8-10.8)
[2018-05-27 13:48] LABS: ALBUMIN 3.2 g/dL (3.5-5.0); CALCIUM 7.2 mg/dl (8.6-10.4)
[2018-05-27 14:00] LABS: TROPONIN I 0.17 ng/mL (0.00-0.120)
--- NOTE | 2018-05-27 14:06 | RAD ---
Date of service: 05/27/2018 HISTORY: Pneumonia COMPARISON: Comparison made with chest radiograph 11/01/2017 FINDINGS: LUNGS: Poor inspiration with low lung volumes, crowded bronchovascular markings and minor bibasilar atelectasis. Central pulmonary vasculature is also slightly increased which may be secondary to the aforementioned poor inspiration as well as semi-erect patient positioning however the possibility of mild chronic compensated pulmonary venous congestion not excluded.. No significant effusion is identified. PLEURA: No apparent pneumothorax apparent. CARDIOVASCULAR: No aortic atherosclerotic calcification present. Heart remains enlarged. No change multi lead pacemaker/defibrillator no pulmonary vascular congestion. OSSEOUS STRUCTURES: No significant abnormalities. VISUALIZED UPPER ABDOMEN: Normal. OTHER FINDINGS: None. IMPRESSION: Poor inspiration with low lung volumes, crowded bronchovascular markings and minor bibasilar atelectasis. Central pulmonary vasculature is also slightly increased which may be secondary to the aforementioned poor inspiration as well as semi-erect patient positioning however the possibility of mild chronic compensated pulmonary venous congestion not excluded.. No significant effusion is identified. .
[2018-05-27 14:18] LABS: SQUAMOUS EPITHIAL < 1 /hpf (0-5); URINE AMORPHOUS SEDIMENT RARE /ul (<OCC); URINE BACTERIA RARE (<OCC); URINE BILIRUBIN NEGATIVE (NEGATIVE); URINE BLOOD 2+ (NEGATIVE); URINE CLARITY Hazy (Clear); URINE COLOR Amber (YELLOW); URINE GLUCOSE (UA) NORMAL (Normal); URINE LEUKOCYTE ESTERASE NEG Leu/uL (Negative); URINE PROTEIN 3+ mg/dL (NEGATIVE); URINE UROBILINOGEN NORMAL mg/dL (0.2-1.0)
--- NOTE | 2018-05-27 14:23 | CT ---
Date of service: 05/27/2018 PROCEDURE: CT HEAD WITHOUT CONTRAST. HISTORY: Episode of slurred speech yesterday. resolved COMPARISON: None available. TECHNIQUE: Axial computed tomography images were obtained through the head/brain without intravenous contrast. Radiation dose: Total exam DLP = 1290.95 mGy-cm. This CT exam was performed using one or more of the following dose reduction techniques: Automated exposure control, adjustment of the mA and/or kV according to patient size, and/or use of iterative reconstruction technique. FINDINGS: HEMORRHAGE: No acute parenchymal, subarachnoid or extra-axial hemorrhage. BRAIN: Suspect minimal chronic periventricular white matter ischemic changes. There may also be a few tiny chronic lacunar-type infarcts left basal ganglia. Note that the possibility of a small hyperacute infarct cannot be excluded on this VENTRICLES: No obstructive hydrocephalus. CALVARIUM: There are no acute calvarial fracture seen. PARANASAL SINUSES: Mild to moderate mucosal thickening both maxillary antra right greater than left. Subtotal opacification of the ethmoid and sphenoid sinuses. Mucosal thickening also noted in the inferior margin of the frontal sinuses right greater than left. MASTOID AIR CELLS: Unremarkable as visualized. No inflammatory changes. OTHER FINDINGS: None. IMPRESSION: No acute intracranial hemorrhage. With a cyst minor chronic periventricular white matter ischemic changes with a few suspected chronic a left basal nuclei lacunar type infarcts. Mild to moderate central volume loss.
--- NOTE | 2018-05-27 14:28 | CP.PCM.HP ---
<Kyrie Hollingsworth - Last Filed: 05/27/18 19:13> History of Present Illness - History of Present Illness History of Present Illness: PGY-1 H and P for hospitalist service, Dr. King CC: weakness, dizziness, unsteady gait, SOB This is a 48 year old frisian speaking male with past medical history including uncontrolled IDDM, hx of diabetic foot ulcer, HTN, hypercholesterolemia, CHF with biventricular AICD placement who presents to the ED for weakness, dizziness, unsteady gait for the past 4 days. He also endorses SOB described as rapid breathing during this time, both at rest and during exertion. Pt is a poor historian. As per pt and who is at bedside, he is not always compliant with insulin medication and only takes it "when he needs it." Sugars have ranged from 100-280 when he does take it. Pt has fallen multiple times during this week, but never landed on the floor or hit his head. states that pt has also had slurred speech at time, and that she is unable to understand him. Pt states that he was unable to hold a cup due to weakness in his hands. Pt denies LOC, seizure activity, numbness or tingling, bowel or bladder incontinence, fevers, headache, visual disturbances, chest pain, abdominal pain, dysuria. ROS: He reports liquid brown diarrhea with every bowel movement for the past 3 years. He states that he hasn't been eating much for the past 4 days, but has been drinking water. Cough productive of green sputum. Otherwise unremarkable. PMD: [facility]: [facility]: [facility] PMHx: Uncontrolled IDDM, history of diabetic foot ulcer, left ventricular dysfunction status post biventricular ICD PSHx: R toe amputation x 3, appendicitis, left 5th toe partial amputation, AICD placement Medications: as per MAR, although pt's history raises suspicion of inconsistent medication compliance Allergies: NKDA Social Hx: Lives with and children. 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 Denies current or former use of tobacco and illicit drug use, occasional ETOH use. FHx: Mother and father with DM PMD: [facility] Present on Admission - Present on Admission Any Indicators Present on Admission: Yes History of DVT/PE: No History of Uncontrolled Diabetes: Yes Review of Systems - Review of Systems All systems: reviewed and no additional remarkable complaints except (see HPI) Past Patient History - Infectious Disease Hx of Infectious Diseases: None - Tetanus Immunizations Tetanus Immunization: Unknown - Past Medical History & Family History Past Medical History?: Yes Pertinent Family History: DM - Past Social History Smoking Status: Never Smoked - CARDIAC Hx Hypercholesterolemia: Yes Hx Hypertension: Yes Hx Pacemaker: Yes (Lt. sub clavian) - PULMONARY Hx Respiratory Disorders: No - NEUROLOGICAL Hx Neurological Disorder: No - HEENT Hx HEENT Problems: No Hx Cataracts: Yes - RENAL Hx Chronic Kidney Disease: No - ENDOCRINE/METABOLIC Hx Endocrine Disorders: Yes Hx Diabetes Mellitus Type 1: Yes - HEMATOLOGICAL/ONCOLOGICAL Hx Blood Disorders: No - INTEGUMENTARY Hx Dermatological Problems: No - MUSCULOSKELETAL/RHEUMATOLOGICAL Hx Musculoskeletal Disorders: No Hx Falls: No - GASTROINTESTINAL Hx Gastrointestinal Disorders: No - GENITOURINARY/GYNECOLOGICAL Hx Genitourinary Disorders: No - PSYCHIATRIC Hx Substance Use: No - SURGICAL HISTORY Hx Surgeries: Yes Other/Comment: Right 3 digits amputation foot - ANESTHESIA Hx Anesthesia: Yes Hx Anesthesia Reactions: No Hx Malignant Hyperthermia: No Meds Allergies/Adverse Reactions: Allergies Allergy/AdvReac Type Severity Reaction Status Date / Time No Known Allergies Allergy Verified 05/27/18 12:15 Physical Exam - Constitutional Appears: Non-toxic, No Acute Distress - Head Exam Head Exam: ATRAUMATIC, NORMAL INSPECTION - Eye Exam Eye Exam: Conjunctival injection (right eye) - ENT Exam ENT Exam: Mucous Membranes Dry. absent: Normal Oropharynx (erythematous orpharynx without exudates) - Neck Exam Neck exam: Positive for: Full Rom, Lymphadenopathy (submandibular lymphadenopathy) - Respiratory Exam Respiratory Exam: Clear to Auscultation Bilateral, NORMAL BREATHING PATTERN. absent: Accessory Muscle Use, Decreased Breath Sounds, Rales, Rhonchi, Wheezes - Cardiovascular Exam Cardiovascular Exam: Tachycardia, +S1, +S2 - GI/Abdominal Exam GI & Abdominal Exam: Soft. absent: Distended, Firm, Guarding, Rebound, Rigid, Tenderness Additional comments: no suprapubic tenderness - Extremities Exam Extremities exam: Positive for: pedal pulses present. Negative for: calf tenderness, pedal edema - Back Exam Back exam: NORMAL INSPECTION. absent: CVA tenderness (L), CVA tenderness (R), rash noted, vertebral tenderness - Neurological Exam Neurological exam: Alert, CN II-XII Intact, Oriented x3 - Psychiatric Exam Psychiatric exam: Normal Affect, Normal Mood - Skin Skin Exam: Dry, Normal Color, Warm Additional comments: (+) healing ulcers to bilateral shins (+) scar tissue to the right foot at site of amputation Results - Vital Signs Recent Vital Signs: Last Vital Signs Temp 98.9 F 05/27/18 12:19 Pulse 129 H 05/27/18 12:19 Resp 20 05/27/18 12:19 BP 134/81 05/27/18 12:19 Pulse Ox 95 05/27/18 13:32 - Labs Result Diagrams: 05/27/18 13:20 05/27/18 13:20 Labs: Laboratory Results - last 24 hr 05/27/18 05/27/18 05/27/18 12:17 13:20 13:20 WBC 10.4 D RBC 4.08 L Hgb 12.5 Hct 36.4 MCV 89.3 MCH 30.7 MCHC 34.4 RDW 13.1 Plt Count 95 L D MPV 10.2 Neut % (Auto) 92.2 H Lymph % (Auto) 3.6 L [place] % (Auto) 3.5 Eos % (Auto) 0.5 Baso % (Auto) 0.2 Neut # (Auto) 9.5 H Lymph # (Auto) 0.4 L [place] # (Auto) 0.4 Eos # (Auto) 0.1 Baso # (Auto) 0.0 pO2 VBG pH VBG pCO2 VBG HCO3 VBG Total CO2 VBG O2 Sat (Calc) VBG Base Excess VBG Potassium Glucose Lactate Sodium 123 L Potassium 4.1 Chloride 86 L Carbon Dioxide 25 Anion Gap 16 BUN 37 H Creatinine 1.6 H Est GFR ( Amer) 56 Est GFR (Non-Af Amer) 46 POC Glucose (mg/dL) 293 H Random Glucose 280 H Calcium 7.2 L Total Bilirubin 1.0 AST 75 H D ALT 82 H D Alkaline Phosphatase 85 Troponin I 0.1700 H* NT-Pro-B Natriuret Pep 43967 H Total Protein 6.6 Albumin 3.2 L Globulin 3.4 Albumin/Globulin Ratio 1.0 Venous Blood Potassium Urine Color Urine Clarity Urine pH Ur Specific [place] Urine Protein Urine Glucose (UA) Urine Ketones Urine Blood Urine Nitrate Urine Bilirubin Urine Urobilinogen Ur Leukocyte Esterase Urine WBC (Auto) Urine RBC (Auto) Ur Squamous Epith Cells Amorphous Sediment Urine Bacteria 05/27/18 05/27/18 13:30 13:59 WBC RBC Hgb Hct MCV MCH MCHC RDW Plt Count MPV Neut % (Auto) Lymph % (Auto) [place] % (Auto) Eos % (Auto) Baso % (Auto) Neut # (Auto) Lymph # (Auto) [place] # (Auto) Eos # (Auto) Baso # (Auto) pO2 21 L VBG pH 7.44 H VBG pCO2 40 VBG HCO3 25.5 VBG Total CO2 28.4 H VBG O2 Sat (Calc) 38.5 L VBG Base Excess 2.8 H VBG Potassium 4.0 Glucose 305 H Lactate 1.8 Sodium 123.0 L Potassium Chloride 89.0 L Carbon Dioxide Anion Gap BUN Creatinine Est GFR ( Amer) Est GFR (Non-Af Amer) POC Glucose (mg/dL) Random Glucose Calcium Total Bilirubin AST ALT Alkaline Phosphatase Troponin I NT-Pro-B Natriuret Pep Total Protein Albumin Globulin Albumin/Globulin Ratio Venous Blood Potassium 4.0 Urine Color Ana Urine Clarity Hazy Urine pH 5.0 Ur Specific [place] 1.014 Urine Protein 3+ H Urine Glucose (UA) Normal Urine Ketones Trace Urine Blood 2+ H Urine Nitrate Negative Urine Bilirubin Negative Urine Urobilinogen Normal Ur Leukocyte Esterase Neg Urine WBC (Auto) 7 H Urine RBC (Auto) 4 H Ur Squamous Epith Cells < 1 Amorphous Sediment Rare H Urine Bacteria Rare Assessment & Plan - Assessment and Plan (Free Text) Assessment: This is a 48 year old male with past medical history including HTN, uncontrolled IDDM, hx of diabetic foot ulcer, CAD with stent, CHF (EF 37% in march 2018 with diastolic grade 1 dysfunction) s/p biventricular AICD placement who presents to the ED for dizziness, general malaise, states he has been "feeling unwell" since Wednesday. Plan: Sepsis, source unknown -febrile at 103.7 rectally -UTI possible source, as well as pneumonia due to productive cough -MAP noted to be over 70 mmHg on multiple consecutive BP reading -panculture -s/p 500 mL NS IV bolus -Pt received vanc x1 and zosyn x1 in the ED -Cefepime IVPB, Azithromycin IVPB -ICU consulted, recs appreciated -ID consulted, recs appreciated NSTEMI -EKG: Ventricular-paced rhythm @ 120 bpm, no ST segment elevation noted -Troponin x 1 elevated: 0.17 -pt given ASA 325 in ED -patient asymptomatic -f/u serial trops -cardiology on board -dual antiplatelet therapy, beta olman, statin, ACEi -heparin x 24-48 hrs Hyponatremia -Na 123 -Corrected Na for hyperglycemia: 128 -500cc IVF bolus given -f/u TSH/Free T4 -f/u urine osmol, serum osm Chronic Kidney Disease Stage, Stage II -BUN/Cr: 37/1.6 -GFR: 56 -continue to monitor CHF -ECHO (03/22): LVEF is approximately 37%. LV is moderately dilated with mild to moderate concentric hypertrophy. Global hypokinesis of LV. Grade I diastolic dysfunction. Moderate bi-atrial dilatation. Mild TR, mmild pulmonary hypertension. -patient asymptomatic -decreased preload and afterload -ACEi -f/u echocardiogram Hypercholesterolemia -Rosuvastatin 5 mg PO QHS -f/u lipid panel in am Thrombocytopenia -PLT are 97 on admission -will continue to monitor Hx of IDDM -ISS medium -hypoglycemia protocol -f/u HgbA1c PPX GI: Protonix 20 mg IVP daily VTE: pt is on heparin gtt Dispo: admit to tele Case discussed with attending physician, Dr. Fernando Hollingsworth PGY-1 <Rosetta King V - Last Filed: 05/28/18 17:34> Results - Vital Signs Recent Vital Signs: Last Vital Signs Temp 97.6 F 05/28/18 09:06 Pulse 73 05/28/18 14:40 Resp 15 05/28/18 14:40 BP 113/72 05/28/18 14:12 Pulse Ox 100 05/28/18 14:40 - Labs Result Diagrams: 05/28/18 08:45 05/28/18 08:32 Labs: Laboratory Results - last 24 hr 05/27/18 05/27/18 05/27/18 18:02 19:03 19:03 WBC RBC Hgb Hct MCV MCH MCHC RDW Plt Count MPV Neut % (Auto) Lymph % (Auto) [place] % (Auto) Eos % (Auto) Baso % (Auto) Neut # (Auto) Lymph # (Auto) [place] # (Auto) Eos # (Auto) Baso # (Auto) Neutrophils % (Manual) Band Neutrophils % Lymphocytes % (Manual) Monocytes % (Manual) Metamyelocytes % Nucleated RBC % Toxic Granulation Platelet Estimate Large Platelets RBC Morphology Hypochromasia (manual) Poikilocytosis (manual Anisocytosis (manual) Target Cells APTT D-Dimer, Quantitative 1468 H pO2 VBG pH VBG pCO2 VBG HCO3 VBG Total CO2 VBG O2 Sat (Calc) VBG Base Excess VBG Potassium Sodium Chloride Glucose Lactate Potassium Carbon Dioxide Anion Gap BUN Creatinine Est GFR ( Amer) Est GFR (Non-Af Amer) POC Glucose (mg/dL) Random Glucose Calcium Phosphorus Magnesium Total Bilirubin AST ALT Alkaline Phosphatase Total Creatine Kinase 192 H CK-MB (Mass) 0.71 Troponin I 0.2330 H* Total Protein Albumin Globulin Albumin/Globulin Ratio Triglycerides Cholesterol LDL Cholesterol Direct HDL Cholesterol Procalcitonin 27.53 H Venous Blood Potassium Random Vancomycin 05/27/18 05/27/18 05/27/18 19:03 19:05 20:11 WBC 10.1 RBC 3.60 L Hgb 10.9 L Hct 31.9 L MCV 88.8 MCH 30.4 MCHC 34.2 RDW 13.0 Plt Count 76 L MPV 10.2 Neut % (Auto) 89.3 H Lymph % (Auto) 5.4 L [place] % (Auto) 4.5 Eos % (Auto) 0.4 Baso % (Auto) 0.4 Neut # (Auto) 9.0 H Lymph # (Auto) 0.5 L [place] # (Auto) 0.5 Eos # (Auto) 0.0 Baso # (Auto) 0.0 Neutrophils % (Manual) 58 Band Neutrophils % 34 H* Lymphocytes % (Manual) 6 L Monocytes % (Manual) 2 Metamyelocytes % Nucleated RBC % 1 H Toxic Granulation Platelet Estimate Decreased L Large Platelets RBC Morphology Hypochromasia (manual) Slight Poikilocytosis (manual Slight Anisocytosis (manual) Slight Target Cells Slight APTT 30 D-Dimer, Quantitative pO2 22 L VBG pH 7.38 VBG pCO2 44 VBG HCO3 23.6 VBG Total CO2 27.4 VBG O2 Sat (Calc) 38.5 L VBG Base Excess 0.5 VBG Potassium 3.4 L Sodium 128.0 L Chloride 94.0 L Glucose 176 H Lactate 1.6 Potassium Carbon Dioxide Anion Gap BUN Creatinine Est GFR ( Amer) Est GFR (Non-Af Amer) POC Glucose (mg/dL) Random Glucose Calcium Phosphorus Magnesium Total Bilirubin AST ALT Alkaline Phosphatase Total Creatine Kinase CK-MB (Mass) Troponin I Total Protein Albumin Globulin Albumin/Globulin Ratio Triglycerides Cholesterol LDL Cholesterol Direct HDL Cholesterol Procalcitonin Venous Blood Potassium 3.4 L Random Vancomycin 05/27/18 05/27/18 05/27/18 21:09 21:11 21:19 WBC RBC Hgb Hct MCV MCH MCHC RDW Plt Count MPV Neut % (Auto) Lymph % (Auto) [place] % (Auto) Eos % (Auto) Baso % (Auto) Neut # (Auto) Lymph # (Auto) [place] # (Auto) Eos # (Auto) Baso # (Auto) Neutrophils % (Manual) Band Neutrophils % Lymphocytes % (Manual) Monocytes % (Manual) Metamyelocytes % Nucleated RBC % Toxic Granulation Platelet Estimate Large Platelets RBC Morphology Hypochromasia (manual) Poikilocytosis (manual Anisocytosis (manual) Target Cells APTT D-Dimer, Quantitative pO2 VBG pH VBG pCO2 VBG HCO3 VBG Total CO2 VBG O2 Sat (Calc) VBG Base Excess VBG Potassium Sodium 126 L Chloride 92 L Glucose Lactate Potassium 3.5 L Carbon Dioxide 22 Anion Gap 16 BUN 43 H Creatinine 2.1 H Est GFR ( Amer) 41 Est GFR (Non-Af Amer) 34 POC Glucose (mg/dL) 170 H Random Glucose 160 H Calcium 6.9 L Phosphorus Magnesium Total Bilirubin 1.0 AST 78 H ALT 78 H Alkaline Phosphatase 78 Total Creatine Kinase CK-MB (Mass) Troponin I Total Protein 6.0 L Albumin 2.8 L Globulin 3.2 Albumin/Globulin Ratio 0.9 L Triglycerides Cholesterol LDL Cholesterol Direct HDL Cholesterol Procalcitonin Venous Blood Potassium Random Vancomycin 14.7 05/28/18 05/28/18 05/28/18 02:00 02:00 04:00 WBC 8.8 RBC 4.09 L Hgb 12.5 Hct 36.5 MCV 89.2 MCH 30.6 MCHC 34.3 RDW 13.3 Plt Count 77 L MPV 10.5 Neut % (Auto) 88.5 H Lymph % (Auto) 6.3 L [place] % (Auto) 4.3 Eos % (Auto) 0.3 Baso % (Auto) 0.6 Neut # (Auto) 7.8 H Lymph # (Auto) 0.6 L [place] # (Auto) 0.4 Eos # (Auto) 0.0 Baso # (Auto) 0.1 Neutrophils % (Manual) 67 Band Neutrophils % 27 H* Lymphocytes % (Manual) 4 L Monocytes % (Manual) 2 Metamyelocytes % Nucleated RBC % Toxic Granulation Present Platelet Estimate Decreased L Large Platelets Present RBC Morphology Normal Hypochromasia (manual) Poikilocytosis (manual Anisocytosis (manual) Target Cells APTT 42 H D D-Dimer, Quantitative pO2 VBG pH VBG pCO2 VBG HCO3 VBG Total CO2 VBG O2 Sat (Calc) VBG Base Excess VBG Potassium Sodium Chloride Glucose Lactate Potassium Carbon Dioxide Anion Gap BUN Creatinine Est GFR ( Amer) Est GFR (Non-Af Amer) POC Glucose (mg/dL) Random Glucose Calcium Phosphorus Magnesium Total Bilirubin AST ALT Alkaline Phosphatase Total Creatine Kinase 156 CK-MB (Mass) 1.07 Troponin I 0.2220 H* Total Protein Albumin Globulin Albumin/Globulin Ratio Triglycerides Cholesterol LDL Cholesterol Direct HDL Cholesterol Procalcitonin Venous Blood Potassium Random Vancomycin 05/28/18 05/28/18 05/28/18 07:57 08:32 08:32 WBC RBC Hgb Hct MCV MCH MCHC RDW Plt Count MPV Neut % (Auto) Lymph % (Auto) [place] % (Auto) Eos % (Auto) Baso % (Auto) Neut # (Auto) Lymph # (Auto) [place] # (Auto) Eos # (Auto) Baso # (Auto) Neutrophils % (Manual) Band Neutrophils % Lymphocytes % (Manual) Monocytes % (Manual) Metamyelocytes % Nucleated RBC % Toxic Granulation Platelet Estimate Large Platelets RBC Morphology Hypochromasia (manual) Poikilocytosis (manual Anisocytosis (manual) Target Cells APTT 55 H D D-Dimer, Quantitative pO2 VBG pH VBG pCO2 VBG HCO3 VBG Total CO2 VBG O2 Sat (Calc) VBG Base Excess VBG Potassium Sodium 128 L Chloride 93 L Glucose Lactate Potassium 4.2 Carbon Dioxide 20 L Anion Gap 20 BUN 56 H Creatinine 3.2 H Est GFR ( Amer) 25 Est GFR (Non-Af Amer) 21 POC Glucose (mg/dL) 196 H Random Glucose 214 H Calcium 7.1 L Phosphorus 4.7 H Magnesium 2.3 Total Bilirubin 0.7 AST 78 H ALT 93 H Alkaline Phosphatase 78 Total Creatine Kinase CK-MB (Mass) Troponin I Total Protein 6.4 Albumin 2.9 L Globulin 3.5 Albumin/Globulin Ratio 0.8 L Triglycerides 320 H D Cholesterol 108 LDL Cholesterol Direct < 30 HDL Cholesterol 14 L Procalcitonin Venous Blood Potassium Random Vancomycin 05/28/18 05/28/18 05/28/18 08:45 10:58 11:22 WBC 8.5 RBC 4.14 L Hgb 12.7 Hct 37.1 MCV 89.6 MCH 30.7 MCHC 34.2 RDW 13.1 Plt Count 82 L MPV 10.4 Neut % (Auto) 89.5 H Lymph % (Auto) 6.4 L [place] % (Auto) 3.8 Eos % (Auto) 0.0 Baso % (Auto) 0.3 Neut # (Auto) 7.6 H Lymph # (Auto) 0.5 L [place] # (Auto) 0.3 Eos # (Auto) 0.0 Baso # (Auto) 0.0 Neutrophils % (Manual) 70 Band Neutrophils % 20 H* Lymphocytes % (Manual) 5 L Monocytes % (Manual) 4 Metamyelocytes % 1 H Nucleated RBC % Toxic Granulation Platelet Estimate Decreased L Large Platelets Present RBC Morphology Normal Hypochromasia (manual) Poikilocytosis (manual Anisocytosis (manual) Target Cells APTT D-Dimer, Quantitative pO2 VBG pH VBG pCO2 VBG HCO3 VBG Total CO2 VBG O2 Sat (Calc) VBG Base Excess VBG Potassium Sodium Chloride Glucose Lactate Potassium Carbon Dioxide Anion Gap BUN Creatinine Est GFR ( Amer) Est GFR (Non-Af Amer) POC Glucose (mg/dL) 236 H Random Glucose Calcium Phosphorus Magnesium Total Bilirubin AST ALT Alkaline Phosphatase Total Creatine Kinase CK-MB (Mass) Troponin I Total Protein Albumin Globulin Albumin/Globulin Ratio Triglycerides Cholesterol LDL Cholesterol Direct HDL Cholesterol Procalcitonin Venous Blood Potassium Random Vancomycin 8.4 05/28/18 16:20 WBC RBC Hgb Hct MCV MCH MCHC RDW Plt Count MPV Neut % (Auto) Lymph % (Auto) [place] % (Auto) Eos % (Auto) Baso % (Auto) Neut # (Auto) Lymph # (Auto) [place] # (Auto) Eos # (Auto) Baso # (Auto) Neutrophils % (Manual) Band Neutrophils % Lymphocytes % (Manual) Monocytes % (Manual) Metamyelocytes % Nucleated RBC % Toxic Granulation Platelet Estimate Large Platelets RBC Morphology Hypochromasia (manual) Poikilocytosis (manual Anisocytosis (manual) Target Cells APTT D-Dimer, Quantitative pO2 VBG pH VBG pCO2 VBG HCO3 VBG Total CO2 VBG O2 Sat (Calc) VBG Base Excess VBG Potassium Sodium Chloride Glucose Lactate Potassium Carbon Dioxide Anion Gap BUN Creatinine Est GFR ( Amer) Est GFR (Non-Af Amer) POC Glucose (mg/dL) 236 H Random Glucose Calcium Phosphorus Magnesium Total Bilirubin AST ALT Alkaline Phosphatase Total Creatine Kinase CK-MB (Mass) Troponin I Total Protein Albumin Globulin Albumin/Globulin Ratio Triglycerides Cholesterol LDL Cholesterol Direct HDL Cholesterol Procalcitonin Venous Blood Potassium Random Vancomycin Attending/Attestation - Attestation I have personally seen and examined this patient.: Yes I have fully participated in the care of the patient.: Yes I have reviewed all pertinent clinical information: Yes Notes (Text): This is late computer entry for 05/27/18. Patient seen, examined, and case discussed with day-time resident. Agree with assessment and plan by the day-time resident. Discussed with admitting orders at time of admission with the resident. Patient was evaluated by ICU and ultimately accepted to the unit to be observed given hypotension. Cardiology, infectious disease, podiatry, and nephrology on board. Patient has sepsis, unclear source of infectious with multiple co-morbidites including diabetes, hypertension, systolic heart failure, AICD, prior history of osteomyelitis.
[2018-05-27 14:31] LABS: BANDS 22 % (0-2); LYMPHOCYTE 5 % (20-40); MONOCYTE 1 % (0-10); NEUTROPHIL 72 % (50-75); TOTAL CELLS COUNTED 100
[2018-05-27 14:32] LABS: PLATELET ESTIMATE SLIGHTLY DECREASED (NORMAL)
[2018-05-27] MEDS ORDERED: Piperacillin/Tazobact 3.375 GM in Sodium Chloride 100 ML IVPB STA (14:48)
[2018-05-27] MEDS ORDERED: Piperacillin/Tazobact 3.375 gm 100 ML IVPB ONE (15:02)
[2018-05-27] MEDS ORDERED: Vancomycin 1 GM 1 GM/250 ML BAG IVPB ONE (15:02)
[2018-05-27 15:15] LABS: OSMOLALITY,URINE 438 mosm/kg (300-1000)
[2018-05-27] MEDS ORDERED: Sodium Chloride 0.9% 500 ML IV ONE ×2 (15:56→16:21)
[2018-05-27] MEDS ORDERED: Aspirin 325 mg EC Tablets PO ONE (16:20)
--- NOTE | 2018-05-27 16:22 | CP.PCM.CON ---
<VipinSivakumar martinez - Last Filed: 05/27/18 17:38> History of Present Illness - History of Present Illness History of Present Illness: PGY-1 Critical Care Consult Note for Dr. Conti Reason for consult: bandemia, hyponatremia, NSTEMI Chief complaint: dizziness, general malaise Patient is a 48 year old male with past medical history including uncontrolled IDDM, hx of diabetic foot ulcer, L ventricular dysfunction s/p biventricular AICD placement who presents to the ED for dizziness, general malaise, states he has been "feeling unwell" since Wednesday. Per patient and at bedside, patient has not been eating, has not been taking his insulin medication since Wednesday. endorses that patient has fallen multiple times recently when getting out of bed due to dizziness. Fingersticks taken at home have been "normal, over 100" per . Per ED note, patient also endorsed slur red speech on Wednesday and was unable to administration professional a glass. No fevers/chills, headaches, changes in vision, chest pain, palpitations, shortness of breath, cough, abdominal pain, nausea/vomiting/diarrhea/constipation, dysuria, or changes in stool. ROS otherwise reviewed and negative. ICU consulted for NSTEMI findings with hyponatremia and bandemia on labs. PMHx: Uncontrolled IDDM, history of diabetic foot ulcer, left ventricular dysfunction status post biventricular ICD PSHx: R toe amputation x 3, appendicitis, left 5th toe partial amputation, AICD placement Medications: as per EMR Allergies: NKDA Social Hx: Lives with and children. 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 Denies current or former use of tobacco and illicit drug use, occasional ETOH use. FHx: DM--mother and father PMD: [facility] Review of Systems - Review of Systems All systems: reviewed and no additional remarkable complaints except Review of Systems: as per HPI Past Patient History - Infectious Disease Hx of Infectious Diseases: None - Tetanus Immunizations Tetanus Immunization: Unknown - Past Medical History & Family History Past Medical History?: Yes - Past Social History Smoking Status: Never Smoked - CARDIAC Hx Hypercholesterolemia: Yes Hx Hypertension: Yes Hx Pacemaker: Yes (Lt. sub clavian) - PULMONARY Hx Respiratory Disorders: No - NEUROLOGICAL Hx Neurological Disorder: No - HEENT Hx HEENT Problems: No Hx Cataracts: Yes - RENAL Hx Chronic Kidney Disease: No - ENDOCRINE/METABOLIC Hx Endocrine Disorders: Yes Hx Diabetes Mellitus Type 1: Yes - HEMATOLOGICAL/ONCOLOGICAL Hx Blood Disorders: No - INTEGUMENTARY Hx Dermatological Problems: No - MUSCULOSKELETAL/RHEUMATOLOGICAL Hx Musculoskeletal Disorders: No Hx Falls: No - GASTROINTESTINAL Hx Gastrointestinal Disorders: No - GENITOURINARY/GYNECOLOGICAL Hx Genitourinary Disorders: No - PSYCHIATRIC Hx Substance Use: No - SURGICAL HISTORY Hx Surgeries: Yes Other/Comment: Right 3 digits amputation foot - ANESTHESIA Hx Anesthesia: Yes Hx Anesthesia Reactions: No Hx Malignant Hyperthermia: No Meds Allergies/Adverse Reactions: Allergies Allergy/AdvReac Type Severity Reaction Status Date / Time No Known Allergies Allergy Verified 05/27/18 12:15 - Medications Medications: Current Medications Sodium Chloride (Sodium Chloride 0.9%) 500 mls @ 1,000 mls/hr IV .Q30M ONE Stop: 05/27/18 16:25 Physical Exam - Constitutional Appears: No Acute Distress - Head Exam Head Exam: ATRAUMATIC, NORMAL INSPECTION, NORMOCEPHALIC - Eye Exam Eye Exam: EOMI, Normal appearance, PERRL - ENT Exam ENT Exam: Normal Exam - Neck Exam Neck exam: Positive for: Full Rom, Normal Inspection - Respiratory Exam Respiratory Exam: Clear to Auscultation Bilateral, NORMAL BREATHING PATTERN. absent: Accessory Muscle Use, Rales, Rhonchi, Wheezes, Respiratory Distress, Stridor - Cardiovascular Exam Cardiovascular Exam: Tachycardia, +S1, +S2 - GI/Abdominal Exam GI & Abdominal Exam: Normal Bowel Sounds, Soft. absent: Distended, Firm, Guarding, Rebound, Rigid, Tenderness - Extremities Exam Extremities exam: Positive for: normal capillary refill, pedal pulses present. Negative for: calf tenderness, joint swelling Additional comments: Right 3 toes amputation and left 5th toe partial amputation - Back Exam Back exam: NORMAL INSPECTION - Neurological Exam Neurological exam: Alert, Oriented x3 - Psychiatric Exam Psychiatric exam: Normal Affect, Normal Mood - Skin Skin Exam: Dry, Intact, Normal Color, Warm Results - Vital Signs Recent Vital Signs: Last Vital Signs Temp 103 F H 05/27/18 16:14 Pulse 108 H 05/27/18 16:14 Resp 20 05/27/18 16:14 BP 104/61 05/27/18 16:14 Pulse Ox 95 05/27/18 16:14 - Labs Result Diagrams: 05/27/18 13:20 05/27/18 13:20 Labs: Laboratory Results - last 24 hr 05/27/18 05/27/18 05/27/18 12:17 13:20 13:20 WBC 10.4 D RBC 4.08 L Hgb 12.5 Hct 36.4 MCV 89.3 MCH 30.7 MCHC 34.4 RDW 13.1 Plt Count 95 L D MPV 10.2 Neut % (Auto) 92.2 H Lymph % (Auto) 3.6 L [place] % (Auto) 3.5 Eos % (Auto) 0.5 Baso % (Auto) 0.2 Neut # (Auto) 9.5 H Lymph # (Auto) 0.4 L [place] # (Auto) 0.4 Eos # (Auto) 0.1 Baso # (Auto) 0.0 Neutrophils % (Manual) 72 Band Neutrophils % 22 H* Lymphocytes % (Manual) 5 L Monocytes % (Manual) 1 Platelet Estimate Slightly decreased L RBC Morphology Normal pO2 VBG pH VBG pCO2 VBG HCO3 VBG Total CO2 VBG O2 Sat (Calc) VBG Base Excess VBG Potassium Glucose Lactate Sodium 123 L Potassium 4.1 Chloride 86 L Carbon Dioxide 25 Anion Gap 16 BUN 37 H Creatinine 1.6 H Est GFR ( Amer) 56 Est GFR (Non-Af Amer) 46 POC Glucose (mg/dL) 293 H Random Glucose 280 H Serum Osmolality Calcium 7.2 L Total Bilirubin 1.0 AST 75 H D ALT 82 H D Alkaline Phosphatase 85 Troponin I 0.1700 H* NT-Pro-B Natriuret Pep 78600 H Total Protein 6.6 Albumin 3.2 L Globulin 3.4 Albumin/Globulin Ratio 1.0 Venous Blood Potassium Urine Color Urine Clarity Urine pH Ur Specific [place] Urine Protein Urine Glucose (UA) Urine Ketones Urine Blood Urine Nitrate Urine Bilirubin Urine Urobilinogen Ur Leukocyte Esterase Urine WBC (Auto) Urine RBC (Auto) Ur Squamous Epith Cells Amorphous Sediment Urine Bacteria Urine Osmolality Ur Random Sodium 05/27/18 05/27/18 05/27/18 13:30 13:59 14:57 WBC RBC Hgb Hct MCV MCH MCHC RDW Plt Count MPV Neut % (Auto) Lymph % (Auto) [place] % (Auto) Eos % (Auto) Baso % (Auto) Neut # (Auto) Lymph # (Auto) [place] # (Auto) Eos # (Auto) Baso # (Auto) Neutrophils % (Manual) Band Neutrophils % Lymphocytes % (Manual) Monocytes % (Manual) Platelet Estimate RBC Morphology pO2 21 L VBG pH 7.44 H VBG pCO2 40 VBG HCO3 25.5 VBG Total CO2 28.4 H VBG O2 Sat (Calc) 38.5 L VBG Base Excess 2.8 H VBG Potassium 4.0 Glucose 305 H Lactate 1.8 Sodium 123.0 L Potassium Chloride 89.0 L Carbon Dioxide Anion Gap BUN Creatinine Est GFR ( Amer) Est GFR (Non-Af Amer) POC Glucose (mg/dL) Random Glucose Serum Osmolality 278 Calcium Total Bilirubin AST ALT Alkaline Phosphatase Troponin I NT-Pro-B Natriuret Pep Total Protein Albumin Globulin Albumin/Globulin Ratio Venous Blood Potassium 4.0 Urine Color Ana Urine Clarity Hazy Urine pH 5.0 Ur Specific [place] 1.014 Urine Protein 3+ H Urine Glucose (UA) Normal Urine Ketones Trace Urine Blood 2+ H Urine Nitrate Negative Urine Bilirubin Negative Urine Urobilinogen Normal Ur Leukocyte Esterase Neg Urine WBC (Auto) 7 H Urine RBC (Auto) 4 H Ur Squamous Epith Cells < 1 Amorphous Sediment Rare H Urine Bacteria Rare Urine Osmolality Ur Random Sodium 05/27/18 14:57 WBC RBC Hgb Hct MCV MCH MCHC RDW Plt Count MPV Neut % (Auto) Lymph % (Auto) [place] % (Auto) Eos % (Auto) Baso % (Auto) Neut # (Auto) Lymph # (Auto) [place] # (Auto) Eos # (Auto) Baso # (Auto) Neutrophils % (Manual) Band Neutrophils % Lymphocytes % (Manual) Monocytes % (Manual) Platelet Estimate RBC Morphology pO2 VBG pH VBG pCO2 VBG HCO3 VBG Total CO2 VBG O2 Sat (Calc) VBG Base Excess VBG Potassium Glucose Lactate Sodium Potassium Chloride Carbon Dioxide Anion Gap BUN Creatinine Est GFR ( Amer) Est GFR (Non-Af Amer) POC Glucose (mg/dL) Random Glucose Serum Osmolality Calcium Total Bilirubin AST ALT Alkaline Phosphatase Troponin I NT-Pro-B Natriuret Pep Total Protein Albumin Globulin Albumin/Globulin Ratio Venous Blood Potassium Urine Color Urine Clarity Urine pH Ur Specific [place] Urine Protein Urine Glucose (UA) Urine Ketones Urine Blood Urine Nitrate Urine Bilirubin Urine Urobilinogen Ur Leukocyte Esterase Urine WBC (Auto) Urine RBC (Auto) Ur Squamous Epith Cells Amorphous Sediment Urine Bacteria Urine Osmolality 438 Ur Random Sodium 6 Assessment & Plan - Assessment and Plan (Free Text) Assessment: 48 year old male with past medical history including uncontrolled IDDM, hx of diabetic foot ulcer, L ventricular dysfunction s/p biventricular AICD placement who presents to the ED for dizziness, general malaise. Plan: Neuro: Slurred speech -episode of slurred speech yesterday, per ED note -patient is alert and oriented x 3 -no focal neurological deficits noted -CT head (05/27): No acute intracranial hemorrhage. With a cyst minor chronic periventricular white matter ischemic changes with a few suspected chronic a left basal nuclei lacunar type infarcts. Pulm: -no acute distress -saturating well on RA -CXR (05/27): Poor inspiration with low lung volumes, crowded bronchovascular markings and minor bibasilar atelectasis. Central pulmonary vasculature is also slightly increased which may be secondary to the aforementioned poor inspiration as well as semi-erect patient positioning; however the possibility of mild chronic compensated pulmonary venous congestion not excluded. No signficant effusion is identified. CV: NSTEMI -EKG: Ventricular-paced rhythm @ 120 bpm, no ST segment elevatation noted -Troponin x 1 elevated: 0.17 -pt given ASA 325 in ED -patient asymptomatic -f/u serial trops -cardiology on board -dual antiplatelet therapy, beta olman, statin, ACEi -heparin x 24-48 hrs Chronic systolic heart failure -ECHO (10/25): left ventricular function is markedly reduced with diffuse hypokinesis. There is akinesis of the basal-inferiolateral and septal jordan. EF ~25%. There is borderline mild concentric LVH. The left ventricle is moderately dilated. -patient asymptomatic -decreased preload and afterload -ACEi Tachycardia, physiological likely 2/2 fever, sepsis -patient febrile, Tmax 103.7 on admission -c/w home coreg Peripheral vascular disease -ASA, statin Heme: Thrombocytopenia, likely multifactorial in etiology -PLT 95 -continue to monitor -multivitamin, thiamine, folic acid Renal: Hyponatremia -Na 123 -Corrected Na for hyperglycemia: 128 -500cc IVF bolus given -f/u TSH/Free T4 -f/u urine osmol, serum osm Chronic Kidney Disease Stage, Stage II -BUN/Cr: 37/1.6 -GFR: 56 Endo: Insulin dependent Diabetes Mellitus -ISS, accuchecks -hypoglycemia protocol -f/u A1C ID: Sepsis -patient febrile, 103.7 on admission -lactate q4h -panculture -broad spectrum Abx: vanco/cefepime -f/u ID recs PPx, Diet, Disposition -DVT ppx: heparin IV x 48 hrs -GI ppx: pepcid 20 mg -Diet: diabetic modified diet -Disposition: Patient is hemodynamically stable. Please call ICU if patient's clinical status worsens. Case discussed with Dr. Gallito Bean DO, PGY-1 <Aileen Conti - Last Filed: 05/28/18 09:56> Meds - Medications Medications: Current Medications Aspirin (Aspirin Chewable) 81 mg PO DAILY [facility] Last Admin: 05/28/18 09:33 Dose: 81 mg Carvedilol (Coreg) 12.5 mg PO BID [facility] Last Admin: 05/28/18 09:34 Dose: 12.5 mg Clopidogrel Bisulfate (Plavix) 75 mg PO DAILY [facility] Last Admin: 05/28/18 09:34 Dose: 75 mg Dextrose (Dextrose 50% Inj) 0 ml IV STAT PRN; Protocol PRN Reason: Hypoglycemia Protocol Dextrose (Glutose 15) 0 gm PO ONCE PRN; Protocol PRN Reason: Hypoglycemia Protocol Folic Acid (Folic Acid) 1 mg PO DAILY [facility] Last Admin: 05/28/18 09:33 Dose: 1 mg Glucagon (Glucagen Diagnostic Kit) 0 mg IM STAT PRN; Protocol PRN Reason: Hypoglycemia Protocol Azithromycin 500 mg/ Sodium (Chloride) 250 mls @ 250 mls/hr IVPB DAILY [facility]; Protocol Last Admin: 05/28/18 09:36 Dose: 250 mls/hr Dextrose (Dextrose 5% In Water 1000 Ml) 1,000 mls @ 0 mls/hr IV .Q0M PRN; Protocol PRN Reason: Hypoglycemia Protocol Cefepime HCl (Maxipime Iv 2 Gm Premix) 2 gm in 100 mls @ 200 mls/hr IVPB Q12H TEQU[facility]; Protocol Stop: 06/01/18 18:31 Last Admin: 05/28/18 06:22 Dose: 200 mls/hr Heparin Sodium/Sodium Chloride (Heparin 96381 Units/250ml 1/2 Normal Saline) 25,000 units in 250 mls @ 12.002 mls/hr IV .[id number] PRN; Protocol PRN Reason: PROTOCOL Last Admin: 05/28/18 03:15 Dose: 14 units/kg/hr, 12.002 mls/hr Insulin Aspart (Novolog) 0 unit SC [facility]; Protocol Insulin Human Regular (Novolin R) 0 unit SC ACHS [facility]; Protocol Last Admin: 05/28/18 09:03 Dose: 2 unit Multivitamins (Hexavitamin) 1 tab PO DAILY [facility] Last Admin: 05/28/18 09:33 Dose: 1 tab Rosuvastatin Calcium (Crestor) 5 mg PO HS [facility] Last Admin: 05/27/18 21:21 Dose: 5 mg Thiamine HCl (Vitamin B1 Tab) 50 mg PO DAILY [facility] Last Admin: 05/27/18 19:38 Dose: 50 mg Results - Vital Signs Recent Vital Signs: Last Vital Signs Temp 97.6 F 05/28/18 09:06 Pulse 97 H 05/28/18 09:06 Resp 18 05/28/18 09:06 BP 163/94 H 05/28/18 09:34 Pulse Ox 99 05/28/18 09:06 - Labs Result Diagrams: 05/28/18 08:45 05/28/18 08:32 Labs: Laboratory Results - last 24 hr 05/27/18 05/27/18 05/27/18 12:17 13:20 13:20 WBC 10.4 D RBC 4.08 L Hgb 12.5 Hct 36.4 MCV 89.3 MCH 30.7 MCHC 34.4 RDW 13.1 Plt Count 95 L D MPV 10.2 Neut % (Auto) 92.2 H Lymph % (Auto) 3.6 L [place] % (Auto) 3.5 Eos % (Auto) 0.5 Baso % (Auto) 0.2 Neut # (Auto) 9.5 H Lymph # (Auto) 0.4 L [place] # (Auto) 0.4 Eos # (Auto) 0.1 Baso # (Auto) 0.0 Neutrophils % (Manual) 72 Band Neutrophils % 22 H* Lymphocytes % (Manual) 5 L Monocytes % (Manual) 1 Nucleated RBC % Platelet Estimate Slightly decreased L RBC Morphology Normal Hypochromasia (manual) Poikilocytosis (manual Anisocytosis (manual) Target Cells APTT D-Dimer, Quantitative pO2 VBG pH VBG pCO2 VBG HCO3 VBG Total CO2 VBG O2 Sat (Calc) VBG Base Excess VBG Potassium Glucose Lactate Sodium 123 L Potassium 4.1 Chloride 86 L Carbon Dioxide 25 Anion Gap 16 BUN 37 H Creatinine 1.6 H Est GFR ( Amer) 56 Est GFR (Non-Af Amer) 46 POC Glucose (mg/dL) 293 H Random Glucose 280 H Serum Osmolality Calcium 7.2 L Phosphorus Magnesium Total Bilirubin 1.0 AST 75 H D ALT 82 H D Alkaline Phosphatase 85 Total Creatine Kinase CK-MB (Mass) Troponin I 0.1700 H* NT-Pro-B Natriuret Pep 40719 H Total Protein 6.6 Albumin 3.2 L Globulin 3.4 Albumin/Globulin Ratio 1.0 Triglycerides Cholesterol LDL Cholesterol Direct HDL Cholesterol Procalcitonin Venous Blood Potassium Urine Color Urine Clarity Urine pH Ur Specific [place] Urine Protein Urine Glucose (UA) Urine Ketones Urine Blood Urine Nitrate Urine Bilirubin Urine Urobilinogen Ur Leukocyte Esterase Urine WBC (Auto) Urine RBC (Auto) Ur Squamous Epith Cells Amorphous Sediment Urine Bacteria Urine Osmolality Ur Random Sodium Random Vancomycin Influenza Typ A,B (EIA) 05/27/18 05/27/18 05/27/18 13:30 13:59 14:57 WBC RBC Hgb Hct MCV MCH MCHC RDW Plt Count MPV Neut % (Auto) Lymph % (Auto) [place] % (Auto) Eos % (Auto) Baso % (Auto) Neut # (Auto) Lymph # (Auto) [place] # (Auto) Eos # (Auto) Baso # (Auto) Neutrophils % (Manual) Band Neutrophils % Lymphocytes % (Manual) Monocytes % (Manual) Nucleated RBC % Platelet Estimate RBC Morphology Hypochromasia (manual) Poikilocytosis (manual Anisocytosis (manual) Target Cells APTT D-Dimer, Quantitative pO2 21 L VBG pH 7.44 H VBG pCO2 40 VBG HCO3 25.5 VBG Total CO2 28.4 H VBG O2 Sat (Calc) 38.5 L VBG Base Excess 2.8 H VBG Potassium 4.0 Glucose 305 H Lactate 1.8 Sodium 123.0 L Potassium Chloride 89.0 L Carbon Dioxide Anion Gap BUN Creatinine Est GFR ( Amer) Est GFR (Non-Af Amer) POC Glucose (mg/dL) Random Glucose Serum Osmolality 278 Calcium Phosphorus Magnesium Total Bilirubin AST ALT Alkaline Phosphatase Total Creatine Kinase CK-MB (Mass) Troponin I NT-Pro-B Natriuret Pep Total Protein Albumin Globulin Albumin/Globulin Ratio Triglycerides Cholesterol LDL Cholesterol Direct HDL Cholesterol Procalcitonin Venous Blood Potassium 4.0 Urine Color Ana Urine Clarity Hazy Urine pH 5.0 Ur Specific [place] 1.014 Urine Protein 3+ H Urine Glucose (UA) Normal Urine Ketones Trace Urine Blood 2+ H Urine Nitrate Negative Urine Bilirubin Negative Urine Urobilinogen Normal Ur Leukocyte Esterase Neg Urine WBC (Auto) 7 H Urine RBC (Auto) 4 H Ur Squamous Epith Cells < 1 Amorphous Sediment Rare H Urine Bacteria Rare Urine Osmolality Ur Random Sodium Random Vancomycin Influenza Typ A,B (EIA) 05/27/18 05/27/18 05/27/18 14:57 16:00 18:02 WBC RBC Hgb Hct MCV MCH MCHC RDW Plt Count MPV Neut % (Auto) Lymph % (Auto) [place] % (Auto) Eos % (Auto) Baso % (Auto) Neut # (Auto) Lymph # (Auto) [place] # (Auto) Eos # (Auto) Baso # (Auto) Neutrophils % (Manual) Band Neutrophils % Lymphocytes % (Manual) Monocytes % (Manual) Nucleated RBC % Platelet Estimate RBC Morphology Hypochromasia (manual) Poikilocytosis (manual Anisocytosis (manual) Target Cells APTT D-Dimer, Quantitative pO2 VBG pH VBG pCO2 VBG HCO3 VBG Total CO2 VBG O2 Sat (Calc) VBG Base Excess VBG Potassium Glucose Lactate Sodium Potassium Chloride Carbon Dioxide Anion Gap BUN Creatinine Est GFR ( Amer) Est GFR (Non-Af Amer) POC Glucose (mg/dL) Random Glucose Serum Osmolality Calcium Phosphorus Magnesium Total Bilirubin AST ALT Alkaline Phosphatase Total Creatine Kinase CK-MB (Mass) Troponin I NT-Pro-B Natriuret Pep Total Protein Albumin Globulin Albumin/Globulin Ratio Triglycerides Cholesterol LDL Cholesterol Direct HDL Cholesterol Procalcitonin 27.53 H Venous Blood Potassium Urine Color Urine Clarity Urine pH Ur Specific [place] Urine Protein Urine Glucose (UA) Urine Ketones Urine Blood Urine Nitrate Urine Bilirubin Urine Urobilinogen Ur Leukocyte Esterase Urine WBC (Auto) Urine RBC (Auto) Ur Squamous Epith Cells Amorphous Sediment Urine Bacteria Urine Osmolality 438 Ur Random Sodium 6 Random Vancomycin Influenza Typ A,B (EIA) Negative for flu a/b 05/27/18 05/27/18 05/27/18 19:03 19:03 19:03 WBC RBC Hgb Hct MCV MCH MCHC RDW Plt Count MPV Neut % (Auto) Lymph % (Auto) [place] % (Auto) Eos % (Auto) Baso % (Auto) Neut # (Auto) Lymph # (Auto) [place] # (Auto) Eos # (Auto) Baso # (Auto) Neutrophils % (Manual) Band Neutrophils % Lymphocytes % (Manual) Monocytes % (Manual) Nucleated RBC % Platelet Estimate RBC Morphology Hypochromasia (manual) Poikilocytosis (manual Anisocytosis (manual) Target Cells APTT 30 D-Dimer, Quantitative 1468 H pO2 VBG pH VBG pCO2 VBG HCO3 VBG Total CO2 VBG O2 Sat (Calc) VBG Base Excess VBG Potassium Glucose Lactate Sodium Potassium Chloride Carbon Dioxide Anion Gap BUN Creatinine Est GFR ( Amer) Est GFR (Non-Af Amer) POC Glucose (mg/dL) Random Glucose Serum Osmolality Calcium Phosphorus Magnesium Total Bilirubin AST ALT Alkaline Phosphatase Total Creatine Kinase 192 H CK-MB (Mass) 0.71 Troponin I 0.2330 H* NT-Pro-B Natriuret Pep Total Protein Albumin Globulin Albumin/Globulin Ratio Triglycerides Cholesterol LDL Cholesterol Direct HDL Cholesterol Procalcitonin Venous Blood Potassium Urine Color Urine Clarity Urine pH Ur Specific [place] Urine Protein Urine Glucose (UA) Urine Ketones Urine Blood Urine Nitrate Urine Bilirubin Urine Urobilinogen Ur Leukocyte Esterase Urine WBC (Auto) Urine RBC (Auto) Ur Squamous Epith Cells Amorphous Sediment Urine Bacteria Urine Osmolality Ur Random Sodium Random Vancomycin Influenza Typ A,B (EIA) 05/27/18 05/27/18 05/27/18 19:05 20:11 21:09 WBC 10.1 RBC 3.60 L Hgb 10.9 L Hct 31.9 L MCV 88.8 MCH 30.4 MCHC 34.2 RDW 13.0 Plt Count 76 L MPV 10.2 Neut % (Auto) 89.3 H Lymph % (Auto) 5.4 L [place] % (Auto) 4.5 Eos % (Auto) 0.4 Baso % (Auto) 0.4 Neut # (Auto) 9.0 H Lymph # (Auto) 0.5 L [place] # (Auto) 0.5 Eos # (Auto) 0.0 Baso # (Auto) 0.0 Neutrophils % (Manual) 58 Band Neutrophils % 34 H* Lymphocytes % (Manual) 6 L Monocytes % (Manual) 2 Nucleated RBC % 1 H Platelet Estimate Decreased L RBC Morphology Hypochromasia (manual) Slight Poikilocytosis (manual Slight Anisocytosis (manual) Slight Target Cells Slight APTT D-Dimer, Quantitative pO2 22 L VBG pH 7.38 VBG pCO2 44 VBG HCO3 23.6 VBG Total CO2 27.4 VBG O2 Sat (Calc) 38.5 L VBG Base Excess 0.5 VBG Potassium 3.4 L Glucose 176 H Lactate 1.6 Sodium 128.0 L Potassium Chloride 94.0 L Carbon Dioxide Anion Gap BUN Creatinine Est GFR ( Amer) Est GFR (Non-Af Amer) POC Glucose (mg/dL) Random Glucose Serum Osmolality Calcium Phosphorus Magnesium Total Bilirubin AST ALT Alkaline Phosphatase Total Creatine Kinase CK-MB (Mass) Troponin I NT-Pro-B Natriuret Pep Total Protein Albumin Globulin Albumin/Globulin Ratio Triglycerides Cholesterol LDL Cholesterol Direct HDL Cholesterol Procalcitonin Venous Blood Potassium 3.4 L Urine Color Urine Clarity Urine pH Ur Specific [place] Urine Protein Urine Glucose (UA) Urine Ketones Urine Blood Urine Nitrate Urine Bilirubin Urine Urobilinogen Ur Leukocyte Esterase Urine WBC (Auto) Urine RBC (Auto) Ur Squamous Epith Cells Amorphous Sediment Urine Bacteria Urine Osmolality Ur Random Sodium Random Vancomycin 14.7 Influenza Typ A,B (EIA) 05/27/18 05/27/18 05/28/18 21:11 21:19 02:00 WBC RBC Hgb Hct MCV MCH MCHC RDW Plt Count MPV Neut % (Auto) Lymph % (Auto) [place] % (Auto) Eos % (Auto) Baso % (Auto) Neut # (Auto) Lymph # (Auto) [place] # (Auto) Eos # (Auto) Baso # (Auto) Neutrophils % (Manual) Band Neutrophils % Lymphocytes % (Manual) Monocytes % (Manual) Nucleated RBC % Platelet Estimate RBC Morphology Hypochromasia (manual) Poikilocytosis (manual Anisocytosis (manual) Target Cells APTT D-Dimer, Quantitative pO2 VBG pH VBG pCO2 VBG HCO3 VBG Total CO2 VBG O2 Sat (Calc) VBG Base Excess VBG Potassium Glucose Lactate Sodium 126 L Potassium 3.5 L Chloride 92 L Carbon Dioxide 22 Anion Gap 16 BUN 43 H Creatinine 2.1 H Est GFR ( Amer) 41 Est GFR (Non-Af Amer) 34 POC Glucose (mg/dL) 170 H Random Glucose 160 H Serum Osmolality Calcium 6.9 L Phosphorus Magnesium Total Bilirubin 1.0 AST 78 H ALT 78 H Alkaline Phosphatase 78 Total Creatine Kinase 156 CK-MB (Mass) 1.07 Troponin I 0.2220 H* NT-Pro-B Natriuret Pep Total Protein 6.0 L Albumin 2.8 L Globulin 3.2 Albumin/Globulin Ratio 0.9 L Triglycerides Cholesterol LDL Cholesterol Direct HDL Cholesterol Procalcitonin Venous Blood Potassium Urine Color Urine Clarity Urine pH Ur Specific [place] Urine Protein Urine Glucose (UA) Urine Ketones Urine Blood Urine Nitrate Urine Bilirubin Urine Urobilinogen Ur Leukocyte Esterase Urine WBC (Auto) Urine RBC (Auto) Ur Squamous Epith Cells Amorphous Sediment Urine Bacteria Urine Osmolality Ur Random Sodium Random Vancomycin Influenza Typ A,B (EIA) 05/28/18 05/28/18 05/28/18 02:00 04:00 07:57 WBC 8.8 RBC 4.09 L Hgb 12.5 Hct 36.5 MCV 89.2 MCH 30.6 MCHC 34.3 RDW 13.3 Plt Count 77 L MPV 10.5 Neut % (Auto) 88.5 H Lymph % (Auto) 6.3 L [place] % (Auto) 4.3 Eos % (Auto) 0.3 Baso % (Auto) 0.6 Neut # (Auto) 7.8 H Lymph # (Auto) 0.6 L [place] # (Auto) 0.4 Eos # (Auto) 0.0 Baso # (Auto) 0.1 Neutrophils % (Manual) Band Neutrophils % Lymphocytes % (Manual) Monocytes % (Manual) Nucleated RBC % Platelet Estimate RBC Morphology Hypochromasia (manual) Poikilocytosis (manual Anisocytosis (manual) Target Cells APTT 42 H D D-Dimer, Quantitative pO2 VBG pH VBG pCO2 VBG HCO3 VBG Total CO2 VBG O2 Sat (Calc) VBG Base Excess VBG Potassium Glucose Lactate Sodium Potassium Chloride Carbon Dioxide Anion Gap BUN Creatinine Est GFR ( Amer) Est GFR (Non-Af Amer) POC Glucose (mg/dL) 196 H Random Glucose Serum Osmolality Calcium Phosphorus Magnesium Total Bilirubin AST ALT Alkaline Phosphatase Total Creatine Kinase CK-MB (Mass) Troponin I NT-Pro-B Natriuret Pep Total Protein Albumin Globulin Albumin/Globulin Ratio Triglycerides Cholesterol LDL Cholesterol Direct HDL Cholesterol Procalcitonin Venous Blood Potassium Urine Color Urine Clarity Urine pH Ur Specific [place] Urine Protein Urine Glucose (UA) Urine Ketones Urine Blood Urine Nitrate Urine Bilirubin Urine Urobilinogen Ur Leukocyte Esterase Urine WBC (Auto) Urine RBC (Auto) Ur Squamous Epith Cells Amorphous Sediment Urine Bacteria Urine Osmolality Ur Random Sodium Random Vancomycin Influenza Typ A,B (EIA) 05/28/18 05/28/18 05/28/18 08:32 08:32 08:45 WBC 8.5 RBC 4.14 L Hgb 12.7 Hct 37.1 MCV 89.6 MCH 30.7 MCHC 34.2 RDW 13.1 Plt Count 82 L MPV 10.4 Neut % (Auto) 89.5 H Lymph % (Auto) 6.4 L [place] % (Auto) 3.8 Eos % (Auto) 0.0 Baso % (Auto) 0.3 Neut # (Auto) 7.6 H Lymph # (Auto) 0.5 L [place] # (Auto) 0.3 Eos # (Auto) 0.0 Baso # (Auto) 0.0 Neutrophils % (Manual) Band Neutrophils % Lymphocytes % (Manual) Monocytes % (Manual) Nucleated RBC % Platelet Estimate RBC Morphology Hypochromasia (manual) Poikilocytosis (manual Anisocytosis (manual) Target Cells APTT 55 H D D-Dimer, Quantitative pO2 VBG pH VBG pCO2 VBG HCO3 VBG Total CO2 VBG O2 Sat (Calc) VBG Base Excess VBG Potassium Glucose Lactate Sodium 128 L Potassium 4.2 Chloride 93 L Carbon Dioxide 20 L Anion Gap 20 BUN 56 H Creatinine 3.2 H Est GFR ( Amer) 25 Est GFR (Non-Af Amer) 21 POC Glucose (mg/dL) Random Glucose 214 H Serum Osmolality Calcium 7.1 L Phosphorus 4.7 H Magnesium 2.3 Total Bilirubin 0.7 AST 78 H ALT 93 H Alkaline Phosphatase 78 Total Creatine Kinase CK-MB (Mass) Troponin I NT-Pro-B Natriuret Pep Total Protein 6.4 Albumin 2.9 L Globulin 3.5 Albumin/Globulin Ratio 0.8 L Triglycerides 320 H D Cholesterol 108 LDL Cholesterol Direct < 30 HDL Cholesterol 14 L Procalcitonin Venous Blood Potassium Urine Color Urine Clarity Urine pH Ur Specific [place] Urine Protein Urine Glucose (UA) Urine Ketones Urine Blood Urine Nitrate Urine Bilirubin Urine Urobilinogen Ur Leukocyte Esterase Urine WBC (Auto) Urine RBC (Auto) Ur Squamous Epith Cells Amorphous Sediment Urine Bacteria Urine Osmolality Ur Random Sodium Random Vancomycin Influenza Typ A,B (EIA) Assessment & Plan - Assessment and Plan (Free Text) Plan: Above patient seen and examined at bedside. PAtient remains hemodynamically stable. COntinue sepsis protocol with IVF at 30 ml/kg x1 -early abx -ID follow up -Cardiology f/u for NSTEMI/suspect type II MO cc time 35 minutes d/w above resident who documents my clinical management and physical exam - Date & Time Date: 05/27/18 Time: 17:00
[2018-05-27] MEDS ORDERED: Dextrose 50% SYRINGE Inj (50 ml) IV PRN (16:33)
[2018-05-27] MEDS ORDERED: Glucagon Recombinant 1 mg Inj IM PRN (16:33)
[2018-05-27] MEDS ORDERED: Heparin25000 units/250ml 1/2NS 25,000 UNITS/250 ML BAG IV PRN (17:58)
--- NOTE | 2018-05-27 18:14 | CP.PCM.CON ---
History of Present Illness - History of Present Illness History of Present Illness: 48 yo male with complex hx admitted with NSTEMI and sepsis ID consulted for this Given stat dose Vanco in ER On Zithroomax and Cefepime Podiatry eval for diabetic ulcers in progress serologies and cultures sent 48 year old male with past medical history including uncontrolled IDDM, hx of diabetic foot ulcer, L ventricular dysfunction s/p biventricular AICD placement who presents to the ED for dizziness, general malaise, states he has been "feeling unwell" since Wednesday. Found to have NSTEMI and sepsis Hypotension resolved with IV Fluids Empiric IV antibiotics started PMHx: Uncontrolled IDDM, history of diabetic foot ulcer, left ventricular dysfunction status post biventricular AICD PSHx: R toe amputation x 3, appendicitis, left 5th toe partial amputation, AICD placement Medications: as per EMR Allergies: NKDA Social Hx: Lives with and children. 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 Denies current or former use of tobacco and illicit drug use, occasional ETOH use. FHx: DM--mother and father Review of Systems - Review of Systems All systems: reviewed and no additional remarkable complaints except - Constitutional Constitutional: As Per HPI, Chills, Fever, Malaise - EENT Eyes: absent: As Per HPI, Blind Spots, Blurred Vision, Change in Vision, Decre ased Night Vision, Diplopia, Discharge, Dry Eye, Exophthalmos, Floaters, Irritation, Itchy Eyes, Loss of Peripheral Vision, Pain, Photophobia, Requires Corrective Lenses, Sees Flashes, Spots in Vision, Tunnel Vision, Other Visual Disturbances, Loss of Vision, Other Ears: absent: As Per HPI, Decreased Hearing, Ear Discharge, Ear Pain, Tinnitus, Abnormal Hearing, Disequilibrium, Dizziness, Other Nose/Mouth/Throat: absent: As Per HPI, Epistaxis, Nasal Congestion, Nasal Discharge, Nasal Obstruction, Nasal Trauma, Nose Pain, Post Nasal Drip, Sinus P ain, Sinus Pressure, Bleeding Gums, Change in Voice, Dental Pain, Dry Mouth, Dysphagia, Halitosis, Hoarsness, Lip Swelling, Mouth Lesions, Mouth Pain, Odynophagia, Sore Throat, Throat Swelling, Tongue Swelling, Facial Pain, Neck Pain, Neck Mass, Other - Cardiovascular Cardiovascular: As Per HPI - Respiratory Respiratory: absent: As Per HPI, Cough, Dyspnea, Hemoptysis, Dyspnea on Exertion, Wheezing, Snoring, Stridor, Pain on Inspiration, Chest Congestion, Excessive Mucous Production, Change in Mucous Color, Pain with Coughing, Other - Gastrointestinal Gastrointestinal: absent: As Per HPI, Abdominal Pain, Belching, Bloating, Change in Bowel Habits, Change in Stool Character, Coffee Ground Emesis, Constipation, Cramping, Diarrhea, Dyspepsia, Dysphagia, Early Satiety, Excessive Flatus, Fecal Incontinence, Heartburn, Hematemesis, Hematochezia, Loose Stools, Melena, Nausea, Odynophagia, Temesmus, Vomiting, Other - Genitourinary Genitourinary: absent: As Per HPI, Change in Urinary Stream, Difficulty Urinating, Dysuria, Flank Pain, Hematuria, Pyuria, Nocturia, Urinary Incontinence, Urinary Frequency, Urinary Hesitance, Urinary Urgency, Voiding Freq/Small Amts, Freq UTI, Hx Renal/Bladder Calculi, Hx /Renal Surgery, Bladder Distension, Other - Musculoskeletal Musculoskeletal: As Per HPI - Integumentary Integumentary: As Per HPI - Neurological Neurological: absent: As Per HPI, Abnormal Gait, Abnormal Hearing, Abnormal Movements, Abnormal Speech, Behavioral Changes, Burning Sensations, Confusion, Convulsions, Disequilibrium, Dizziness, Numbness, Focal Weakness, Frequent Falls, Headaches, Lack of Coordination, Loss of Vision, Memory Loss, Paresthesias, Radicular Pain, Restless Legs, Sensory Deficit, Syncope, Tingling, Tremor, Vertigo, Weakness, Other Visual Disturbances, Other - Psychiatric Psychiatric: absent: As Per HPI, Abnormal Sleep Pattern, Anhedonia, Anxiety, Auditory Hallucinations, Behavioral Changes, Change in Appetite, Change in Libido, Confusion, Depression, Difficulty Concentrating, Hallucinations, Homicidal Ideation, Hopelessness, Irritability, Memory Loss, Mood Swings, Panic Attacks, Paranoia, Suicidal Ideation, Visual Hallucinations, Tactile Arturo lucinations, Other - Endocrine Endocrine: As Per HPI - Hematologic/Lymphatic Hematologic: absent: As Per HPI, Easy Bleeding, Easy Bruising, Lymphadenopathy, Other Past Patient History - Infectious Disease Hx of Infectious Diseases: None - Tetanus Immunizations Tetanus Immunization: Unknown - Past Medical History & Family History Past Medical History?: Yes - Past Social History Smoking Status: Never Smoked - CARDIAC Hx Hypercholesterolemia: Yes Hx Hypertension: Yes Hx Pacemaker: Yes (Lt. sub clavian) - PULMONARY Hx Respiratory Disorders: No - NEUROLOGICAL Hx Neurological Disorder: No - HEENT Hx HEENT Problems: No Hx Cataracts: Yes - RENAL Hx Chronic Kidney Disease: No - ENDOCRINE/METABOLIC Hx Endocrine Disorders: Yes Hx Diabetes Mellitus Type 1: Yes - HEMATOLOGICAL/ONCOLOGICAL Hx Blood Disorders: No - INTEGUMENTARY Hx Dermatological Problems: No - MUSCULOSKELETAL/RHEUMATOLOGICAL Hx Musculoskeletal Disorders: No Hx Falls: No - GASTROINTESTINAL Hx Gastrointestinal Disorders: No - GENITOURINARY/GYNECOLOGICAL Hx Genitourinary Disorders: No - PSYCHIATRIC Hx Substance Use: No - SURGICAL HISTORY Hx Surgeries: Yes Other/Comment: Right 3 digits amputation foot - ANESTHESIA Hx Anesthesia: Yes Hx Anesthesia Reactions: No Hx Malignant Hyperthermia: No Meds Allergies/Adverse Reactions: Allergies Allergy/AdvReac Type Severity Reaction Status Date / Time No Known Allergies Allergy Verified 05/27/18 12:15 - Medications Medications: Current Medications Aspirin (Aspirin Chewable) 81 mg PO DAILY [facility] Dextrose (Dextrose 50% Inj) 0 ml IV STAT PRN; Protocol PRN Reason: Hypoglycemia Protocol Dextrose (Glutose 15) 0 gm PO ONCE PRN; Protocol PRN Reason: Hypoglycemia Protocol Famotidine (Pepcid) 20 mg IVP DAILY [facility] Glucagon (Glucagen Diagnostic Kit) 0 mg IM STAT PRN; Protocol PRN Reason: Hypoglycemia Protocol Azithromycin 500 mg/ Sodium (Chloride) 250 mls @ 250 mls/hr IVPB DAILY [facility]; Protocol Cefepime HCl (Maxipime Iv 1 Gm Premix) 1 gm in 50 mls @ 100 mls/hr IVPB Q12H [facility]; Protocol Dextrose (Dextrose 5% In Water 1000 Ml) 1,000 mls @ 0 mls/hr IV .Q0M PRN; Protocol PRN Reason: Hypoglycemia Protocol Heparin Sodium/Sodium Chloride (Heparin 64896 Units/250ml 1/2 Normal Saline) 25 ,000 units in 250 mls @ 9.525 mls/hr IV .Q24H PRN; Protocol PRN Reason: PROTOCOL Insulin Human Regular (Novolin R) 0 unit SC ACHS [facility]; Protocol Rosuvastatin Calcium (Crestor) 5 mg PO HS [facility] Results - Vital Signs Recent Vital Signs: Last Vital Signs Temp 103.5 F H 05/27/18 16:51 Pulse 108 H 05/27/18 17:15 Resp 18 05/27/18 17:15 BP 97/62 L 05/27/18 17:15 Pulse Ox 95 05/27/18 17:30 - Labs Result Diagrams: 05/28/18 08:45 05/28/18 08:32 Labs: Laboratory Results - last 24 hr 05/27/18 05/27/18 05/27/18 12:17 13:20 13:20 WBC 10.4 D RBC 4.08 L Hgb 12.5 Hct 36.4 MCV 89.3 MCH 30.7 MCHC 34.4 RDW 13.1 Plt Count 95 L D MPV 10.2 Neut % (Auto) 92.2 H Lymph % (Auto) 3.6 L [place] % (Auto) 3.5 Eos % (Auto) 0.5 Baso % (Auto) 0.2 Neut # (Auto) 9.5 H Lymph # (Auto) 0.4 L [place] # (Auto) 0.4 Eos # (Auto) 0.1 Baso # (Auto) 0.0 Neutrophils % (Manual) 72 Band Neutrophils % 22 H* Lymphocytes % (Manual) 5 L Monocytes % (Manual) 1 Platelet Estimate Slightly decreased L RBC Morphology Normal pO2 VBG pH VBG pCO2 VBG HCO3 VBG Total CO2 VBG O2 Sat (Calc) VBG Base Excess VBG Potassium Glucose Lactate Sodium 123 L Potassium 4.1 Chloride 86 L Carbon Dioxide 25 Anion Gap 16 BUN 37 H Creatinine 1.6 H Est GFR ( Amer) 56 Est GFR (Non-Af Amer) 46 POC Glucose (mg/dL) 293 H Random Glucose 280 H Serum Osmolality Calcium 7.2 L Total Bilirubin 1.0 AST 75 H D ALT 82 H D Alkaline Phosphatase 85 Troponin I 0.1700 H* NT-Pro-B Natriuret Pep 17857 H Total Protein 6.6 Albumin 3.2 L Globulin 3.4 Albumin/Globulin Ratio 1.0 Venous Blood Potassium Urine Color Urine Clarity Urine pH Ur Specific [place] Urine Protein Urine Glucose (UA) Urine Ketones Urine Blood Urine Nitrate Urine Bilirubin Urine Urobilinogen Ur Leukocyte Esterase Urine WBC (Auto) Urine RBC (Auto) Ur Squamous Epith Cells Amorphous Sediment Urine Bacteria Urine Osmolality Ur Random Sodium Influenza Typ A,B (EIA) 05/27/18 05/27/18 05/27/18 13:30 13:59 14:57 WBC RBC Hgb Hct MCV MCH MCHC RDW Plt Count MPV Neut % (Auto) Lymph % (Auto) [place] % (Auto) Eos % (Auto) Baso % (Auto) Neut # (Auto) Lymph # (Auto) [place] # (Auto) Eos # (Auto) Baso # (Auto) Neutrophils % (Manual) Band Neutrophils % Lymphocytes % (Manual) Monocytes % (Manual) Platelet Estimate RBC Morphology pO2 21 L VBG pH 7.44 H VBG pCO2 40 VBG HCO3 25.5 VBG Total CO2 28.4 H VBG O2 Sat (Calc) 38.5 L VBG Base Excess 2.8 H VBG Potassium 4.0 Glucose 305 H Lactate 1.8 Sodium 123.0 L Potassium Chloride 89.0 L Carbon Dioxide Anion Gap BUN Creatinine Est GFR ( Amer) Est GFR (Non-Af Amer) POC Glucose (mg/dL) Random Glucose Serum Osmolality 278 Calcium Total Bilirubin AST ALT Alkaline Phosphatase Troponin I NT-Pro-B Natriuret Pep Total Protein Albumin Globulin Albumin/Globulin Ratio Venous Blood Potassium 4.0 Urine Color [place] Urine Clarity Hazy Urine pH 5.0 Ur Specific [place] 1.014 Urine Protein 3+ H Urine Glucose (UA) Normal Urine Ketones Trace Urine Blood 2+ H Urine Nitrate Negative Urine Bilirubin Negative Urine Urobilinogen Normal Ur Leukocyte Esterase Neg Urine WBC (Auto) 7 H Urine RBC (Auto) 4 H Ur Squamous Epith Cells < 1 Amorphous Sediment Rare H Urine Bacteria Rare Urine Osmolality Ur Random Sodium Influenza Typ A,B (EIA) 05/27/18 05/27/18 14:57 16:00 WBC RBC Hgb Hct MCV MCH MCHC RDW Plt Count MPV Neut % (Auto) Lymph % (Auto) [place] % (Auto) Eos % (Auto) Baso % (Auto) Neut # (Auto) Lymph # (Auto) [place] # (Auto) Eos # (Auto) Baso # (Auto) Neutrophils % (Manual) Band Neutrophils % Lymphocytes % (Manual) Monocytes % (Manual) Platelet Estimate RBC Morphology pO2 VBG pH VBG pCO2 VBG HCO3 VBG Total CO2 VBG O2 Sat (Calc) VBG Base Excess VBG Potassium Glucose Lactate Sodium Potassium Chloride Carbon Dioxide Anion Gap BUN Creatinine Est GFR ( Amer) Est GFR (Non-Af Amer) POC Glucose (mg/dL) Random Glucose Serum Osmolality Calcium Total Bilirubin AST ALT Alkaline Phosphatase Troponin I NT-Pro-B Natriuret Pep Total Protein Albumin Globulin Albumin/Globulin Ratio Venous Blood Potassium Urine Color Urine Clarity Urine pH Ur Specific [place] Urine Protein Urine Glucose (UA) Urine Ketones Urine Blood Urine Nitrate Urine Bilirubin Urine Urobilinogen Ur Leukocyte Esterase Urine WBC (Auto) Urine RBC (Auto) Ur Squamous Epith Cells Amorphous Sediment Urine Bacteria Urine Osmolality 438 Ur Random Sodium 6 Influenza Typ A,B (EIA) Negative for flu a/b
[2018-05-27] MEDS ORDERED: Sodium Chloride 0.9% 1,000 ML IV ONE (18:51)
[2018-05-27] MEDS ORDERED: Digoxin 500 mcg/2ml (0.5 mg/2ml) Inj IVP ONE (18:55)
[2018-05-27] MEDS ORDERED: Multiple Vitamins Oral Solution PO SCH (19:00)
[2018-05-27] MEDS ORDERED: Digoxin 500 mcg/2ml (0.5 mg/2ml) Inj ONE (19:16)
[2018-05-27 19:17] VITALS: PULSE 91
[2018-05-27 19:17] LABS: VENOUS BLOOD GAS BASE EXCESS 0.5 mmol/L (0.0-2.0); VENOUS BLOOD GAS PCO2 44 mmHg (40-60); VENOUS BLOOD GAS PO2 22 mm/Hg (30-55); VENOUS BLOOD PH 7.38 (7.32-7.43)
[2018-05-27] MEDS: Multiple Vitamins Tab PO SCH (19:38)
[2018-05-27] MEDS: Cefepime IV 2 gm in Dextrose 2 GM/100 ML BAG IVPB SCH (19:38)
[2018-05-27 19:41] LABS: CK-MB 0.71 ng/mL (0.0-3.38); TROPONIN I 0.233 ng/mL (0.00-0.120)
[2018-05-27] MEDS ORDERED: Heparin25000 units/250ml 1/2NS 25,000 UNITS/250 ML BAG IV SCH (20:00)
[2018-05-27] MEDS ORDERED: SODIUM CHLORIDE 0.9% IV ONE (20:00)
[2018-05-27] MEDS ORDERED: HYDROCORTISONE IV ONE (20:00)
[2018-05-27 20:24] LABS: BASO % 0.4 % (0.0-2.0); EOS % 0.4 % (0.0-4.0); HEMOGLOBIN 10.9 g/dL (12.0-18.0); LYMPH # 0.5 K/uL (1.0-4.3); LYMPH % 5.4 % (20.0-40.0); MEAN CELL VOLUME 88.8 fL (80.0-94.0); MEAN CORPUSCULAR HEMOGLOBIN 30.4 pg (27.0-31.0); MEAN CORPUSCULAR HGB CONC 34.2 g/dL (33.0-37.0); MEAN PLATELET VOLUME 10.2 fL (7.2-11.7); MONO # 0.5 K/uL (0.0-0.8); MONO % 4.5 % (0.0-10.0); NEUT % 89.3 % (50.0-75.0); WHITE BLOOD COUNT 10.1 K/uL (4.8-10.8)
[2018-05-27 20:26] LABS: PLATELET COUNT 76 K/uL (130-400)
[2018-05-27 21:10] LABS: BANDS 34 % (0-2); LYMPHOCYTE 6 % (20-40); MONOCYTE 2 % (0-10); NEUTROPHIL 58 % (50-75); NUCLEATED RED BLOOD CELL 1 % (0-0); PLATELET ESTIMATE DECREASED (NORMAL); TOTAL CELLS COUNTED 100
[2018-05-27 21:11] LABS: ANISOCYTOSIS SLIGHT; HYPOCHROMIC SLIGHT; POIKILOCYTOSIS SLIGHT; TARGET CELLS SLIGHT
[2018-05-27] MEDS ORDERED: (Novolin R) Insulin Human Regular 100 units/ml vial ONE (21:27)
[2018-05-27] MEDS: (Novolin R) Insulin Human Regular 100 units/ml vial SC SCH (21:27)
[2018-05-27 21:34] LABS: ALB/GLOB RATIO 0.9 (1.0-2.1); ALBUMIN 2.8 g/dL (3.5-5.0); CALCIUM 6.9 mg/dl (8.6-10.4)
[2018-05-28 02:31] LABS: CK-MB 1.07 ng/mL (0.0-3.38); TROPONIN I 0.222 ng/mL (0.00-0.120)
[2018-05-28] MEDS ORDERED: Heparin25000 units/250ml 1/2NS 25,000 UNITS/250 ML BAG IV PRN (03:09)
[2018-05-28] MEDS: Cefepime IV 2 gm in Dextrose 2 GM/100 ML BAG IVPB SCH ×2 (06:22→17:39)
[2018-05-28 06:41] LABS: BASO # 0.1 K/uL (0.0-0.2); BASO % 0.6 % (0.0-2.0); EOS % 0.3 % (0.0-4.0); HEMOGLOBIN 12.5 g/dL (12.0-18.0); LYMPH # 0.6 K/uL (1.0-4.3); LYMPH % 6.3 % (20.0-40.0); MEAN CELL VOLUME 89.2 fL (80.0-94.0); MEAN CORPUSCULAR HEMOGLOBIN 30.6 pg (27.0-31.0); MEAN CORPUSCULAR HGB CONC 34.3 g/dL (33.0-37.0); MEAN PLATELET VOLUME 10.5 fL (7.2-11.7); MONO # 0.4 K/uL (0.0-0.8); MONO % 4.3 % (0.0-10.0); NEUT # 7.8 K/uL (1.8-7.0); NEUT % 88.5 % (50.0-75.0); PLATELET COUNT 77 K/uL (130-400); RBC 4.09 Mil/uL (4.40-5.90); RED CELL DISTRIBUTION WIDTH 13.3 % (11.5-14.5); WHITE BLOOD COUNT 8.8 K/uL (4.8-10.8)
[2018-05-28 08:52] LABS: BASO % 0.3 % (0.0-2.0); HEMOGLOBIN 12.7 g/dL (12.0-18.0); LYMPH # 0.5 K/uL (1.0-4.3); LYMPH % 6.4 % (20.0-40.0); MEAN CELL VOLUME 89.6 fL (80.0-94.0); MEAN CORPUSCULAR HEMOGLOBIN 30.7 pg (27.0-31.0); MEAN CORPUSCULAR HGB CONC 34.2 g/dL (33.0-37.0); MEAN PLATELET VOLUME 10.4 fL (7.2-11.7); MONO # 0.3 K/uL (0.0-0.8); MONO % 3.8 % (0.0-10.0); NEUT # 7.6 K/uL (1.8-7.0); NEUT % 89.5 % (50.0-75.0); PLATELET COUNT 82 K/uL (130-400); RBC 4.14 Mil/uL (4.40-5.90); RED CELL DISTRIBUTION WIDTH 13.1 % (11.5-14.5); WHITE BLOOD COUNT 8.5 K/uL (4.8-10.8)
[2018-05-28] MEDS: (Novolin R) Insulin Human Regular 100 units/ml vial SC SCH (09:03)
[2018-05-28 09:11] LABS: ALB/GLOB RATIO 0.8 (1.0-2.1); ALBUMIN 2.9 g/dL (3.5-5.0); ALT/SGPT 93 U/L (21-72); AST/SGOT 78 U/L (17-59); BLOOD UREA NITROGEN 56 mg/dL (9-20); CALCIUM 7.1 mg/dl (8.6-10.4); GFR NON-AFRICAN AMERICAN 21; HDL CHOLESTEROL 14 mg/dL (30-70)
[2018-05-28 09:25] LABS: LDL CHOLESTEROL < 30 mg/dL (0-129)
[2018-05-28] MEDS: Multiple Vitamins Tab PO SCH (09:33)
[2018-05-28] MEDS: Azithromycin 500 MG in Sodium Chloride 0.9% 250 ML IVPB SCH (09:36)
--- NOTE | 2018-05-28 09:54 | CP.PCM.PN ---
Subjective - Date & Time of Evaluation Date of Evaluation: 05/28/18 Time of Evaluation: 09:48 - Subjective Subjective: Patient awake, alert in NAD, no episode of hypotension Objective - Vital Signs/Intake and Output Vital Signs (last 24 hours): Temp Pulse Resp BP Pulse Ox 97.6 F 97 H 18 163/94 H 99 05/28/18 09:06 05/28/18 09:06 05/28/18 09:06 05/28/18 09:34 05/28/18 09:06 Intake and Output: 05/28/18 05/28/18 06:59 18:59 Intake Total 468.8 356 Output Total 30 400 Balance 438.8 -44 - Medications Medications: Current Medications Aspirin (Aspirin Chewable) 81 mg PO DAILY [facility] Last Admin: 05/28/18 09:33 Dose: 81 mg Carvedilol (Coreg) 12.5 mg PO BID [facility] Last Admin: 05/28/18 09:34 Dose: 12.5 mg Clopidogrel Bisulfate (Plavix) 75 mg PO DAILY [facility] Last Admin: 05/28/18 09:34 Dose: 75 mg Dextrose (Dextrose 50% Inj) 0 ml IV STAT PRN; Protocol PRN Reason: Hypoglycemia Protocol Dextrose (Glutose 15) 0 gm PO ONCE PRN; Protocol PRN Reason: Hypoglycemia Protocol Folic Acid (Folic Acid) 1 mg PO DAILY [facility] Last Admin: 05/28/18 09:33 Dose: 1 mg Glucagon (Glucagen Diagnostic Kit) 0 mg IM STAT PRN; Protocol PRN Reason: Hypoglycemia Protocol Azithromycin 500 mg/ Sodium (Chloride) 250 mls @ 250 mls/hr IVPB DAILY [facility]; Protocol Last Admin: 05/28/18 09:36 Dose: 250 mls/hr Dextrose (Dextrose 5% In Water 1000 Ml) 1,000 mls @ 0 mls/hr IV .Q0M PRN; Protocol PRN Reason: Hypoglycemia Protocol Cefepime HCl (Maxipime Iv 2 Gm Premix) 2 gm in 100 mls @ 200 mls/hr IVPB Q12H [facility]; Protocol Stop: 06/01/18 18:31 Last Admin: 05/28/18 06:22 Dose: 200 mls/hr Heparin Sodium/Sodium Chloride (Heparin 69122 Units/250ml 1/2 Normal Saline) 25,000 units in 250 mls @ 12.002 mls/hr IV .[id number] PRN; Protocol PRN Reason: PROTOCOL Last Admin: 05/28/18 03:15 Dose: 14 units/kg/hr, 12.002 mls/hr Insulin Aspart (Novolog) 0 unit SC [facility]; Protocol Insulin Human Regular (Novolin R) 0 unit SC ACHS [facility]; Protocol Last Admin: 05/28/18 09:03 Dose: 2 unit Multivitamins (Hexavitamin) 1 tab PO DAILY [facility] Last Admin: 05/28/18 09:33 Dose: 1 tab Rosuvastatin Calcium (Crestor) 5 mg PO HS [facility] Last Admin: 05/27/18 21:21 Dose: 5 mg Thiamine HCl (Vitamin B1 Tab) 50 mg PO DAILY [facility] Last Admin: 05/27/18 19:38 Dose: 50 mg - Labs Labs: 05/28/18 08:45 05/28/18 08:32 APTT 55 SECONDS (21-34) H D 05/28/18 08:32 - Head Exam Head Exam: ATRAUMATIC, NORMAL INSPECTION - Eye Exam Eye Exam: EOMI - ENT Exam ENT Exam: Mucous Membranes Moist - Respiratory Exam Respiratory Exam: Clear to Ausculation Bilateral, NORMAL BREATHING PATTERN - Cardiovascular Exam Cardiovascular Exam: +S1, +S2, Murmur - GI/Abdominal Exam GI & Abdominal Exam: Soft, Normal Bowel Sounds. absent: Tenderness - Extremities Exam Additional comments: multiple lesions/scabs on legs - Neurological Exam Neurological Exam: Alert, Awake, CN II-XII Intact, Oriented x3 - Skin Skin Exam: Normal Color Assessment and Plan - Assessment and Plan (Free Text) Assessment: 48 year old male with past medical history including uncontrolled IDDM, hx of diabetic foot ulcer, L ventricular dysfunction s/p biventricular AICD placement who presents to the ED for dizziness, general malaise. -Sepsis: GPC bacteremia: suspect soft tissue/bone infection, contineu vanco, check level continue abx as per ID, check echo r/o IE, ID follow up -NTESMI: suspect type II [place], continue asa, heprain, coreg, hold acei unti EL resolves -Hypotension resolved with IVF -Chronic systolic heart failure:continue asa, decrease pre-load and afterload as BP tolerates, ACEi when renal function improves, check US abdomen/kidneys, cardiology eval -PVD: continue asa, statin -hyponatremia slowy improving: no neuroogical signs -EL: monitor urine output, avoid nephrotoix drugs, check vanco level, hold acei nephrology eval -continue strict BGM check and coverage -continue dvt/pud ppx Hypotension one episode resovled after fluid resusitation. lactic normalized PAtient remains hemodynamically stable.
[2018-05-28] MEDS ORDERED: Cefepime IV 1 gm in Dextrose 1 GM/50 ML BAG IVPB SCH (10:00)
[2018-05-28 10:33] LABS: BANDS 27 % (0-2); LYMPHOCYTE 4 % (20-40); MONOCYTE 2 % (0-10); NEUTROPHIL 67 % (50-75); PLATELET ESTIMATE DECREASED (NORMAL); TOTAL CELLS COUNTED 100
[2018-05-28 10:34] LABS: LARGE PLATELETS PRESENT; TOXIC GRANULATION PRESENT
--- NOTE | 2018-05-28 11:11 | CP.PCM.CON ---
History of Present Illness - History of Present Illness History of Present Illness: Podiatry consult note for Dr. Soler, 48 yo male seen and evaluated for bilateral feet. Patient states he has had multiple amputations by Dr. Soler in the past. Denies any new ulcerations. Denies seeing any drainage from the feet. Denies seeing a foot doctor as he states all wounds are closed . Denies any pain in his feet. Denies f/n/v/sob. PMHx: Uncontrolled IDDM, history of diabetic foot ulcer, left ventricular dysfunction status post biventricular ICD PSHx: R toe amputation x 3, appendicitis, left 5th toe partial amputation, AICD placement Medications: as per MAR, although pt's history raises suspicion of inconsistent medication compliance Allergies: NKDA Social Hx: Lives with and children. Worked as a [employer]. Denies current or former use of tobacco and illicit drug use, occasional ETOH use. FHx: Mother and father with DM Past Patient History - Infectious Disease Hx of Infectious Diseases: None - Tetanus Immunizations Tetanus Immunization: Unknown - Past Medical History & Family History Past Medical History?: Yes - Past Social History Smoking Status: Never Smoked - CARDIAC Hx Hypercholesterolemia: Yes Hx Hypertension: Yes Hx Pacemaker: Yes (Lt. sub clavian) - PULMONARY Hx Respiratory Disorders: No - NEUROLOGICAL Hx Neurological Disorder: No - HEENT Hx HEENT Problems: No Hx Cataracts: Yes - RENAL Hx Chronic Kidney Disease: No - ENDOCRINE/METABOLIC Hx Endocrine Disorders: Yes Hx Diabetes Mellitus Type 1: Yes - HEMATOLOGICAL/ONCOLOGICAL Hx Blood Disorders: No - INTEGUMENTARY Hx Dermatological Problems: No - MUSCULOSKELETAL/RHEUMATOLOGICAL Hx Musculoskeletal Disorders: No Hx Falls: Yes - GASTROINTESTINAL Hx Gastrointestinal Disorders: No - GENITOURINARY/GYNECOLOGICAL Hx Genitourinary Disorders: No - PSYCHIATRIC Hx Substance Use: No - SURGICAL HISTORY Hx Surgeries: Yes Other/Comment: Right 3 digits amputation foot - ANESTHESIA Hx Anesthesia: Yes Hx Anesthesia Reactions: No Hx Malignant Hyperthermia: No Meds Allergies/Adverse Reactions: Allergies Allergy/AdvReac Type Severity Reaction Status Date / Time No Known Allergies Allergy Verified 05/27/18 12:15 - Medications Medications: Current Medications Aspirin (Aspirin Chewable) 81 mg PO DAILY [facility] Last Admin: 05/28/18 09:33 Dose: 81 mg Carvedilol (Coreg) 12.5 mg PO BID [facility] Last Admin: 05/28/18 09:34 Dose: 12.5 mg Clopidogrel Bisulfate (Plavix) 75 mg PO DAILY [facility] Last Admin: 05/28/18 09:34 Dose: 75 mg Dextrose (Dextrose 50% Inj) 0 ml IV STAT PRN; Protocol PRN Reason: Hypoglycemia Protocol Dextrose (Glutose 15) 0 gm PO ONCE PRN; Protocol PRN Reason: Hypoglycemia Protocol Folic Acid (Folic Acid) 1 mg PO DAILY [facility] Last Admin: 05/28/18 09:33 Dose: 1 mg Glucagon (Glucagen Diagnostic Kit) 0 mg IM STAT PRN; Protocol PRN Reason: Hypoglycemia Protocol Azithromycin 500 mg/ Sodium (Chloride) 250 mls @ 250 mls/hr IVPB DAILY [facility]; Protocol Last Admin: 05/28/18 09:36 Dose: 250 mls/hr Dextrose (Dextrose 5% In Water 1000 Ml) 1,000 mls @ 0 mls/hr IV .Q0M PRN; Protocol PRN Reason: Hypoglycemia Protocol Cefepime HCl (Maxipime Iv 2 Gm Premix) 2 gm in 100 mls @ 200 mls/hr IVPB Q12H TEQUILA; Protocol Stop: 06/01/18 18:31 Last Admin: 05/28/18 06:22 Dose: 200 mls/hr Heparin Sodium/Sodium Chloride (Heparin 31170 Units/250ml 1/2 Normal Saline) 25,000 units in 250 mls @ 12.002 mls/hr IV .[id number] PRN; Protocol PRN Reason: PROTOCOL Last Admin: 05/28/18 03:15 Dose: 14 units/kg/hr, 12.002 mls/hr Influenza Virus Vaccine (Fluzone Quad [id number]) 60 mcg IM .ONCE ONE Stop: 05/29/18 10:01 Insulin Aspart (Novolog) 0 unit SC [facility]; Protocol Insulin Human Regular (Novolin R) 0 unit SC [facility]; Protocol Last Admin: 05/28/18 09:03 Dose: 2 unit Multivitamins (Hexavitamin) 1 tab PO DAILY [facility] Last Admin: 05/28/18 09:33 Dose: 1 tab Rosuvastatin Calcium (Crestor) 5 mg PO HS [facility] Last Admin: 05/27/18 21:21 Dose: 5 mg Thiamine HCl (Vitamin B1 Tab) 50 mg PO DAILY [facility] Last Admin: 05/27/18 19:38 Dose: 50 mg Physical Exam - Constitutional Appears: Well, Non-toxic, No Acute Distress - Head Exam Head Exam: ATRAUMATIC, NORMOCEPHALIC - Extremities Exam Additional comments: Bilateral lower extremity exam: vascular: DP/pT pulses faintly palpable, CFT <3 secs, no edema or erythema noted derm: hyperkeratotic scab noted to the previous amputation site on the right fourth and fifth dorsal forefoot, no loosening of the scab noted , no drainage, no clinical signs of infection, no erythema or edema noted, no open lesions noted otherwise ortho: no pain on palpation of the foot or leg neuro: protective sensation diminished to the foot Results - Vital Signs Recent Vital Signs: Last Vital Signs Temp 97.6 F 05/28/18 09:06 Pulse 97 H 05/28/18 09:06 Resp 18 05/28/18 09:06 BP 163/94 H 05/28/18 09:34 Pulse Ox 99 05/28/18 09:06 - Labs Result Diagrams: 05/29/18 06:28 05/29/18 06:20 Labs: Laboratory Results - last 24 hr 05/27/18 05/27/18 05/27/18 12:17 13:20 13:20 WBC 10.4 D RBC 4.08 L Hgb 12.5 Hct 36.4 MCV 89.3 MCH 30.7 MCHC 34.4 RDW 13.1 Plt Count 95 L D MPV 10.2 Neut % (Auto) 92.2 H Lymph % (Auto) 3.6 L [place] % (Auto) 3.5 Eos % (Auto) 0.5 Baso % (Auto) 0.2 Neut # (Auto) 9.5 H Lymph # (Auto) 0.4 L [place] # (Auto) 0.4 Eos # (Auto) 0.1 Baso # (Auto) 0.0 Neutrophils % (Manual) 72 Band Neutrophils % 22 H* Lymphocytes % (Manual) 5 L Monocytes % (Manual) 1 Nucleated RBC % Toxic Granulation Platelet Estimate Slightly decreased L Large Platelets RBC Morphology Normal Hypochromasia (manual) Poikilocytosis (manual Anisocytosis (manual) Target Cells APTT D-Dimer, Quantitative pO2 VBG pH VBG pCO2 VBG HCO3 VBG Total CO2 VBG O2 Sat (Calc) VBG Base Excess VBG Potassium Glucose Lactate Sodium 123 L Potassium 4.1 Chloride 86 L Carbon Dioxide 25 Anion Gap 16 BUN 37 H Creatinine 1.6 H Est GFR ( Amer) 56 Est GFR (Non-Af Amer) 46 POC Glucose (mg/dL) 293 H Random Glucose 280 H Serum Osmolality Calcium 7.2 L Phosphorus Magnesium Total Bilirubin 1.0 AST 75 H D ALT 82 H D Alkaline Phosphatase 85 Total Creatine Kinase CK-MB (Mass) Troponin I 0.1700 H* NT-Pro-B Natriuret Pep 28020 H Total Protein 6.6 Albumin 3.2 L Globulin 3.4 Albumin/Globulin Ratio 1.0 Triglycerides Cholesterol LDL Cholesterol Direct HDL Cholesterol Procalcitonin Venous Blood Potassium Urine Color Urine Clarity Urine pH Ur Specific [place] Urine Protein Urine Glucose (UA) Urine Ketones Urine Blood Urine Nitrate Urine Bilirubin Urine Urobilinogen Ur Leukocyte Esterase Urine WBC (Auto) Urine RBC (Auto) Ur Squamous Epith Cells Amorphous Sediment Urine Bacteria Urine Osmolality Ur Random Sodium Random Vancomycin Influenza Typ A,B (EIA) 05/27/18 05/27/18 05/27/18 13:30 13:59 14:57 WBC RBC Hgb Hct MCV MCH MCHC RDW Plt Count MPV Neut % (Auto) Lymph % (Auto) [place] % (Auto) Eos % (Auto) Baso % (Auto) Neut # (Auto) Lymph # (Auto) [place] # (Auto) Eos # (Auto) Baso # (Auto) Neutrophils % (Manual) Band Neutrophils % Lymphocytes % (Manual) Monocytes % (Manual) Nucleated RBC % Toxic Granulation Platelet Estimate Large Platelets RBC Morphology Hypochromasia (manual) Poikilocytosis (manual Anisocytosis (manual) Target Cells APTT D-Dimer, Quantitative pO2 21 L VBG pH 7.44 H VBG pCO2 40 VBG HCO3 25.5 VBG Total CO2 28.4 H VBG O2 Sat (Calc) 38.5 L VBG Base Excess 2.8 H VBG Potassium 4.0 Glucose 305 H Lactate 1.8 Sodium 123.0 L Potassium Chloride 89.0 L Carbon Dioxide Anion Gap BUN Creatinine Est GFR ( Amer) Est GFR (Non-Af Amer) POC Glucose (mg/dL) Random Glucose Serum Osmolality 278 Calcium Phosphorus Magnesium Total Bilirubin AST ALT Alkaline Phosphatase Total Creatine Kinase CK-MB (Mass) Troponin I NT-Pro-B Natriuret Pep Total Protein Albumin Globulin Albumin/Globulin Ratio Triglycerides Cholesterol LDL Cholesterol Direct HDL Cholesterol Procalcitonin Venous Blood Potassium 4.0 Urine Color [place] Urine Clarity Hazy Urine pH 5.0 Ur Specific [place] 1.014 Urine Protein 3+ H Urine Glucose (UA) Normal Urine Ketones Trace Urine Blood 2+ H Urine Nitrate Negative Urine Bilirubin Negative Urine Urobilinogen Normal Ur Leukocyte Esterase Neg Urine WBC (Auto) 7 H Urine RBC (Auto) 4 H Ur Squamous Epith Cells < 1 Amorphous Sediment Rare H Urine Bacteria Rare Urine Osmolality Ur Random Sodium Random Vancomycin Influenza Typ A,B (EIA) 05/27/18 05/27/18 05/27/18 14:57 16:00 18:02 WBC RBC Hgb Hct MCV MCH MCHC RDW Plt Count MPV Neut % (Auto) Lymph % (Auto) [place] % (Auto) Eos % (Auto) Baso % (Auto) Neut # (Auto) Lymph # (Auto) [place] # (Auto) Eos # (Auto) Baso # (Auto) Neutrophils % (Manual) Band Neutrophils % Lymphocytes % (Manual) Monocytes % (Manual) Nucleated RBC % Toxic Granulation Platelet Estimate Large Platelets RBC Morphology Hypochromasia (manual) Poikilocytosis (manual Anisocytosis (manual) Target Cells APTT D-Dimer, Quantitative pO2 VBG pH VBG pCO2 VBG HCO3 VBG Total CO2 VBG O2 Sat (Calc) VBG Base Excess VBG Potassium Glucose Lactate Sodium Potassium Chloride Carbon Dioxide Anion Gap BUN Creatinine Est GFR ( Amer) Est GFR (Non-Af Amer) POC Glucose (mg/dL) Random Glucose Serum Osmolality Calcium Phosphorus Magnesium Total Bilirubin AST ALT Alkaline Phosphatase Total Creatine Kinase CK-MB (Mass) Troponin I NT-Pro-B Natriuret Pep Total Protein Albumin Globulin Albumin/Globulin Ratio Triglycerides Cholesterol LDL Cholesterol Direct HDL Cholesterol Procalcitonin 27.53 H Venous Blood Potassium Urine Color Urine Clarity Urine pH Ur Specific [place] Urine Protein Urine Glucose (UA) Urine Ketones Urine Blood Urine Nitrate Urine Bilirubin Urine Urobilinogen Ur Leukocyte Esterase Urine WBC (Auto) Urine RBC (Auto) Ur Squamous Epith Cells Amorphous Sediment Urine Bacteria Urine Osmolality 438 Ur Random Sodium 6 Random Vancomycin Influenza Typ A,B (EIA) Negative for flu a/b 05/27/18 05/27/18 05/27/18 19:03 19:03 19:03 WBC RBC Hgb Hct MCV MCH MCHC RDW Plt Count MPV Neut % (Auto) Lymph % (Auto) [place] % (Auto) Eos % (Auto) Baso % (Auto) Neut # (Auto) Lymph # (Auto) [place] # (Auto) Eos # (Auto) Baso # (Auto) Neutrophils % (Manual) Band Neutrophils % Lymphocytes % (Manual) Monocytes % (Manual) Nucleated RBC % Toxic Granulation Platelet Estimate Large Platelets RBC Morphology Hypochromasia (manual) Poikilocytosis (manual Anisocytosis (manual) Target Cells APTT 30 D-Dimer, Quantitative 1468 H pO2 VBG pH VBG pCO2 VBG HCO3 VBG Total CO2 VBG O2 Sat (Calc) VBG Base Excess VBG Potassium Glucose Lactate Sodium Potassium Chloride Carbon Dioxide Anion Gap BUN Creatinine Est GFR ( Amer) Est GFR (Non-Af Amer) POC Glucose (mg/dL) Random Glucose Serum Osmolality Calcium Phosphorus Magnesium Total Bilirubin AST ALT Alkaline Phosphatase Total Creatine Kinase 192 H CK-MB (Mass) 0.71 Troponin I 0.2330 H* NT-Pro-B Natriuret Pep Total Protein Albumin Globulin Albumin/Globulin Ratio Triglycerides Cholesterol LDL Cholesterol Direct HDL Cholesterol Procalcitonin Venous Blood Potassium Urine Color Urine Clarity Urine pH Ur Specific [place] Urine Protein Urine Glucose (UA) Urine Ketones Urine Blood Urine Nitrate Urine Bilirubin Urine Urobilinogen Ur Leukocyte Esterase Urine WBC (Auto) Urine RBC (Auto) Ur Squamous Epith Cells Amorphous Sediment Urine Bacteria Urine Osmolality Ur Random Sodium Random Vancomycin Influenza Typ A,B (EIA) 05/27/18 05/27/18 05/27/18 19:05 20:11 21:09 WBC 10.1 RBC 3.60 L Hgb 10.9 L Hct 31.9 L MCV 88.8 MCH 30.4 MCHC 34.2 RDW 13.0 Plt Count 76 L MPV 10.2 Neut % (Auto) 89.3 H Lymph % (Auto) 5.4 L [place] % (Auto) 4.5 Eos % (Auto) 0.4 Baso % (Auto) 0.4 Neut # (Auto) 9.0 H Lymph # (Auto) 0.5 L [place] # (Auto) 0.5 Eos # (Auto) 0.0 Baso # (Auto) 0.0 Neutrophils % (Manual) 58 Band Neutrophils % 34 H* Lymphocytes % (Manual) 6 L Monocytes % (Manual) 2 Nucleated RBC % 1 H Toxic Granulation Platelet Estimate Decreased L Large Platelets RBC Morphology Hypochromasia (manual) Slight Poikilocytosis (manual Slight Anisocytosis (manual) Slight Target Cells Slight APTT D-Dimer, Quantitative pO2 22 L VBG pH 7.38 VBG pCO2 44 VBG HCO3 23.6 VBG Total CO2 27.4 VBG O2 Sat (Calc) 38.5 L VBG Base Excess 0.5 VBG Potassium 3.4 L Glucose 176 H Lactate 1.6 Sodium 128.0 L Potassium Chloride 94.0 L Carbon Dioxide Anion Gap BUN Creatinine Est GFR ( Amer) Est GFR (Non-Af Amer) POC Glucose (mg/dL) Random Glucose Serum Osmolality Calcium Phosphorus Magnesium Total Bilirubin AST ALT Alkaline Phosphatase Total Creatine Kinase CK-MB (Mass) Troponin I NT-Pro-B Natriuret Pep Total Protein Albumin Globulin Albumin/Globulin Ratio Triglycerides Cholesterol LDL Cholesterol Direct HDL Cholesterol Procalcitonin Venous Blood Potassium 3.4 L Urine Color Urine Clarity Urine pH Ur Specific [place] Urine Protein Urine Glucose (UA) Urine Ketones Urine Blood Urine Nitrate Urine Bilirubin Urine Urobilinogen Ur Leukocyte Esterase Urine WBC (Auto) Urine RBC (Auto) Ur Squamous Epith Cells Amorphous Sediment Urine Bacteria Urine Osmolality Ur Random Sodium Random Vancomycin 14.7 Influenza Typ A,B (EIA) 05/27/18 05/27/18 05/28/18 21:11 21:19 02:00 WBC RBC Hgb Hct MCV MCH MCHC RDW Plt Count MPV Neut % (Auto) Lymph % (Auto) [place] % (Auto) Eos % (Auto) Baso % (Auto) Neut # (Auto) Lymph # (Auto) [place] # (Auto) Eos # (Auto) Baso # (Auto) Neutrophils % (Manual) Band Neutrophils % Lymphocytes % (Manual) Monocytes % (Manual) Nucleated RBC % Toxic Granulation Platelet Estimate Large Platelets RBC Morphology Hypochromasia (manual) Poikilocytosis (manual Anisocytosis (manual) Target Cells APTT D-Dimer, Quantitative pO2 VBG pH VBG pCO2 VBG HCO3 VBG Total CO2 VBG O2 Sat (Calc) VBG Base Excess VBG Potassium Glucose Lactate Sodium 126 L Potassium 3.5 L Chloride 92 L Carbon Dioxide 22 Anion Gap 16 BUN 43 H Creatinine 2.1 H Est GFR ( Amer) 41 Est GFR (Non-Af Amer) 34 POC Glucose (mg/dL) 170 H Random Glucose 160 H Serum Osmolality Calcium 6.9 L Phosphorus Magnesium Total Bilirubin 1.0 AST 78 H ALT 78 H Alkaline Phosphatase 78 Total Creatine Kinase 156 CK-MB (Mass) 1.07 Troponin I 0.2220 H* NT-Pro-B Natriuret Pep Total Protein 6.0 L Albumin 2.8 L Globulin 3.2 Albumin/Globulin Ratio 0.9 L Triglycerides Cholesterol LDL Cholesterol Direct HDL Cholesterol Procalcitonin Venous Blood Potassium Urine Color Urine Clarity Urine pH Ur Specific [place] Urine Protein Urine Glucose (UA) Urine Ketones Urine Blood Urine Nitrate Urine Bilirubin Urine Urobilinogen Ur Leukocyte Esterase Urine WBC (Auto) Urine RBC (Auto) Ur Squamous Epith Cells Amorphous Sediment Urine Bacteria Urine Osmolality Ur Random Sodium Random Vancomycin Influenza Typ A,B (EIA) 05/28/18 05/28/18 05/28/18 02:00 04:00 07:57 WBC 8.8 RBC 4.09 L Hgb 12.5 Hct 36.5 MCV 89.2 MCH 30.6 MCHC 34.3 RDW 13.3 Plt Count 77 L MPV 10.5 Neut % (Auto) 88.5 H Lymph % (Auto) 6.3 L [place] % (Auto) 4.3 Eos % (Auto) 0.3 Baso % (Auto) 0.6 Neut # (Auto) 7.8 H Lymph # (Auto) 0.6 L [place] # (Auto) 0.4 Eos # (Auto) 0.0 Baso # (Auto) 0.1 Neutrophils % (Manual) 67 Band Neutrophils % 27 H* Lymphocytes % (Manual) 4 L Monocytes % (Manual) 2 Nucleated RBC % Toxic Granulation Present Platelet Estimate Decreased L Large Platelets Present RBC Morphology Normal Hypochromasia (manual) Poikilocytosis (manual Anisocytosis (manual) Target Cells APTT 42 H D D-Dimer, Quantitative pO2 VBG pH VBG pCO2 VBG HCO3 VBG Total CO2 VBG O2 Sat (Calc) VBG Base Excess VBG Potassium Glucose Lactate Sodium Potassium Chloride Carbon Dioxide Anion Gap BUN Creatinine Est GFR ( Amer) Est GFR (Non-Af Amer) POC Glucose (mg/dL) 196 H Random Glucose Serum Osmolality Calcium Phosphorus Magnesium Total Bilirubin AST ALT Alkaline Phosphatase Total Creatine Kinase CK-MB (Mass) Troponin I NT-Pro-B Natriuret Pep Total Protein Albumin Globulin Albumin/Globulin Ratio Triglycerides Cholesterol LDL Cholesterol Direct HDL Cholesterol Procalcitonin Venous Blood Potassium Urine Color Urine Clarity Urine pH Ur Specific [place] Urine Protein Urine Glucose (UA) Urine Ketones Urine Blood Urine Nitrate Urine Bilirubin Urine Urobilinogen Ur Leukocyte Esterase Urine WBC (Auto) Urine RBC (Auto) Ur Squamous Epith Cells Amorphous Sediment Urine Bacteria Urine Osmolality Ur Random Sodium Random Vancomycin Influenza Typ A,B (EIA) 05/28/18 05/28/18 05/28/18 08:32 08:32 08:45 WBC 8.5 RBC 4.14 L Hgb 12.7 Hct 37.1 MCV 89.6 MCH 30.7 MCHC 34.2 RDW 13.1 Plt Count 82 L MPV 10.4 Neut % (Auto) 89.5 H Lymph % (Auto) 6.4 L [place] % (Auto) 3.8 Eos % (Auto) 0.0 Baso % (Auto) 0.3 Neut # (Auto) 7.6 H Lymph # (Auto) 0.5 L [place] # (Auto) 0.3 Eos # (Auto) 0.0 Baso # (Auto) 0.0 Neutrophils % (Manual) Band Neutrophils % Lymphocytes % (Manual) Monocytes % (Manual) Nucleated RBC % Toxic Granulation Platelet Estimate Large Platelets RBC Morphology Hypochromasia (manual) Poikilocytosis (manual Anisocytosis (manual) Target Cells APTT 55 H D D-Dimer, Quantitative pO2 VBG pH VBG pCO2 VBG HCO3 VBG Total CO2 VBG O2 Sat (Calc) VBG Base Excess VBG Potassium Glucose Lactate Sodium 128 L Potassium 4.2 Chloride 93 L Carbon Dioxide 20 L Anion Gap 20 BUN 56 H Creatinine 3.2 H Est GFR ( Amer) 25 Est GFR (Non-Af Amer) 21 POC Glucose (mg/dL) Random Glucose 214 H Serum Osmolality Calcium 7.1 L Phosphorus 4.7 H Magnesium 2.3 Total Bilirubin 0.7 AST 78 H ALT 93 H Alkaline Phosphatase 78 Total Creatine Kinase CK-MB (Mass) Troponin I NT-Pro-B Natriuret Pep Total Protein 6.4 Albumin 2.9 L Globulin 3.5 Albumin/Globulin Ratio 0.8 L Triglycerides 320 H D Cholesterol 108 LDL Cholesterol Direct < 30 HDL Cholesterol 14 L Procalcitonin Venous Blood Potassium Urine Color Urine Clarity Urine pH Ur Specific [place] Urine Protein Urine Glucose (UA) Urine Ketones Urine Blood Urine Nitrate Urine Bilirubin Urine Urobilinogen Ur Leukocyte Esterase Urine WBC (Auto) Urine RBC (Auto) Ur Squamous Epith Cells Amorphous Sediment Urine Bacteria Urine Osmolality Ur Random Sodium Random Vancomycin Influenza Typ A,B (EIA) Assessment & Plan - Assessment and Plan (Free Text) Assessment: 48 yo male seen at bedside for evaluated of b/l foot and legs to rule out infection Plan: Patient seen and evaluated Chart, labs and vitals reviewed No open lesions on foot; no dressing needed Podiatry will sign off at this time. Thank you for the consult.
[2018-05-28] MEDS: (Novolog) Insulin Aspart, Recombinant 100 u/ml 10 ml vial SC SCH ×3 (11:30→21:49)
[2018-05-28 11:33] LABS: BANDS 20 % (0-2); LARGE PLATELETS PRESENT; LYMPHOCYTE 5 % (20-40); METAMYELOCYTE 1 % (0-0); MONOCYTE 4 % (0-10); NEUTROPHIL 70 % (50-75); PLATELET ESTIMATE DECREASED (NORMAL); TOTAL CELLS COUNTED 100
[2018-05-28] MEDS ORDERED: Vancomycin 1 GM 1 GM/250 ML BAG IVPB STA (11:40)
--- NOTE | 2018-05-28 12:44 | CP.PCM.CON ---
History of Present Illness - History of Present Illness History of Present Illness: 48 year old male with past medical history including uncontrolled IDDM, hx of diabetic foot ulcer, L ventricular dysfunction s/p biventricular AICD placement who presents to the ED for dizziness, general malaise, states he has been "feeling unwell" since Wednesday. Found to have NSTEMI and sepsis Hypotension resolved with IV Fluids Empiric IV antibiotics started PMHx: Uncontrolled IDDM, history of diabetic foot ulcer, left ventricular dysfunction status post biventricular AICD PSHx: R toe amputation x 3, appendicitis, left 5th toe partial amputation, AICD placement Medications: as per EMR Allergies: NKDA Social Hx: Lives with and children. 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 Denies current or former use of tobacco and illicit drug use, occasional ETOH use. FHx: DM--mother and father Review of Systems - Review of Systems All systems: reviewed and no additional remarkable complaints except - Constitutional Constitutional: As Per HPI, Chills, Fever, Malaise - EENT Eyes: absent: As Per HPI, Blind Spots, Blurred Vision, Change in Vision, Decreased Night Vision, Diplopia, Discharge, Dry Eye, Exophthalmos, Floaters, Irritation, Itchy Eyes, Loss of Peripheral Vision, Pain, Photophobia, Requires Corrective Lenses, Sees Flashes, Spots in Vision, Tunnel Vision, Other Visual Disturbances, Loss of Vision, Other Ears: absent: As Per HPI, Decreased Hearing, Ear Discharge, Ear Pain, Tinnitus, Abnormal Hearing, Disequilibrium, Dizziness, Other Nose/Mouth/Throat: absent: As Per HPI, Epistaxis, Nasal Congestion, Nasal Discharge, Nasal Obstruction, Nasal Trauma, Nose Pain, Post Nasal Drip, Sinus Pain, Sinus Pressure, Bleeding Gums, Change in Voice, Dental Pain, Dry Mouth, Dysphagia, Halitosis, Hoarsness, Lip Swelling, Mouth Lesions, Mouth Pain, Odynophagia, Sore Throat, Throat Swelling, Tongue Swelling, Facial Pain, Neck Pain, Neck Mass, Other - Cardiovascular Cardiovascular: As Per HPI - Respiratory Respiratory: absent: As Per HPI, Cough, Dyspnea, Hemoptysis, Dyspnea on Exertion, Wheezing, Snoring, Stridor, Pain on Inspiration, Chest Congestion, Excessive Mucous Production, Change in Mucous Color, Pain with Coughing, Other - Gastrointestinal Gastrointestinal: absent: As Per HPI, Abdominal Pain, Belching, Bloating, Change in Bowel Habits, Change in Stool Character, Coffee Ground Emesis, Constipation, Cramping, Diarrhea, Dyspepsia, Dysphagia, Early Satiety, Excessive Flatus, Fecal Incontinence, Heartburn, Hematemesis, Hematochezia, Loose Stools, Melena, Nausea, Odynophagia, Temesmus, Vomiting, Other - Genitourinary Genitourinary: absent: As Per HPI, Change in Urinary Stream, Difficulty Urinating, Dysuria, Flank Pain, Hematuria, Pyuria, Nocturia, Urinary Incontinence, Urinary Frequency, Urinary Hesitance, Urinary Urgency, Voiding Freq/Small Amts, Freq UTI, Hx Renal/Bladder Calculi, Hx /Renal Surgery, Bladder Distension, Other - Musculoskeletal Musculoskeletal: As Per HPI - Integumentary Integumentary: As Per HPI - Neurological Neurological: absent: As Per HPI, Abnormal Gait, Abnormal Hearing, Abnormal Movements, Abnormal Speech, Behavioral Changes, Burning Sensations, Confusion, Convulsions, Disequilibrium, Dizziness, Numbness, Focal Weakness, Frequent Falls, Headaches, Lack of Coordination, Loss of Vision, Memory Loss, Paresthesias, Radicular Pain, Restless Legs, Sensory Deficit, Syncope, Tingling, Tremor, Vertigo, Weakness, Other Visual Disturbances, Other - Psychiatric Psychiatric: absent: As Per HPI, Abnormal Sleep Pattern, Anhedonia, Anxiety, Auditory Hallucinations, Behavioral Changes, Change in Appetite, Change in Libido, Confusion, Depression, Difficulty Concentrating, Hallucinations, Homicidal Ideation, Hopelessness, Irritability, Memory Loss, Mood Swings, Panic Attacks, Paranoia, Suicidal Ideation, Visual Hallucinations, Tactile Hallucinations, Other - Endocrine Endocrine: As Per HPI - Hematologic/Lymphatic Hematologic: absent: As Per HPI, Easy Bleeding, Easy Bruising, Lymphadenopathy, Other Past Patient History - Infectious Disease Hx of Infectious Diseases: None - Tetanus Immunizations Tetanus Immunization: Unknown - Past Medical History & Family History Past Medical History?: Yes - Past Social History Smoking Status: Never Smoked - CARDIAC Hx Hypercholesterolemia: Yes Hx Hypertension: Yes Hx Pacemaker: Yes (Lt. sub clavian) - PULMONARY Hx Respiratory Disorders: No - NEUROLOGICAL Hx Neurological Disorder: No - HEENT Hx HEENT Problems: No Hx Cataracts: Yes - RENAL Hx Chronic Kidney Disease: No - ENDOCRINE/METABOLIC Hx Endocrine Disorders: Yes Hx Diabetes Mellitus Type 1: Yes - HEMATOLOGICAL/ONCOLOGICAL Hx Blood Disorders: No - INTEGUMENTARY Hx Dermatological Problems: No - MUSCULOSKELETAL/RHEUMATOLOGICAL Hx Musculoskeletal Disorders: No Hx Falls: Yes - GASTROINTESTINAL Hx Gastrointestinal Disorders: No - GENITOURINARY/GYNECOLOGICAL Hx Genitourinary Disorders: No - PSYCHIATRIC Hx Substance Use: No - SURGICAL HISTORY Hx Surgeries: Yes Other/Comment: Right 3 digits amputation foot - ANESTHESIA Hx Anesthesia: Yes Hx Anesthesia Reactions: No Hx Malignant Hyperthermia: No Meds Allergies/Adverse Reactions: Allergies Allergy/AdvReac Type Severity Reaction Status Date / Time No Known Allergies Allergy Verified 05/27/18 12:15 - Medications Medications: Current Medications Aspirin (Aspirin Chewable) 81 mg PO DAILY [facility] Last Admin: 05/28/18 09:33 Dose: 81 mg Carvedilol (Coreg) 12.5 mg PO BID [facility] Last Admin: 05/28/18 09:34 Dose: 12.5 mg Clopidogrel Bisulfate (Plavix) 75 mg PO DAILY [facility] Last Admin: 05/28/18 09:34 Dose: 75 mg Dextrose (Dextrose 50% Inj) 0 ml IV STAT PRN; Protocol PRN Reason: Hypoglycemia Protocol Dextrose (Glutose 15) 0 gm PO ONCE PRN; Protocol PRN Reason: Hypoglycemia Protocol Folic Acid (Folic Acid) 1 mg PO DAILY [facility] Last Admin: 05/28/18 09:33 Dose: 1 mg Glucagon (Glucagen Diagnostic Kit) 0 mg IM STAT PRN; Protocol PRN Reason: Hypoglycemia Protocol Azithromycin 500 mg/ Sodium (Chloride) 250 mls @ 250 mls/hr IVPB DAILY [facility]; Protocol Last Admin: 05/28/18 09:36 Dose: 250 mls/hr Dextrose (Dextrose 5% In Water 1000 Ml) 1,000 mls @ 0 mls/hr IV .Q0M PRN; Protocol PRN Reason: Hypoglycemia Protocol Cefepime HCl (Maxipime Iv 2 Gm Premix) 2 gm in 100 mls @ 200 mls/hr IVPB Q12H [facility]; Protocol Stop: 06/01/18 18:31 Last Admin: 05/28/18 06:22 Dose: 200 mls/hr Heparin Sodium/Sodium Chloride (Heparin 16942 Units/250ml 1/2 Normal Saline) 25,000 units in 250 mls @ 12.002 mls/hr IV .[id number] PRN; Protocol PRN Reason: PROTOCOL Last Admin: 05/28/18 03:15 Dose: 14 units/kg/hr, 12.002 mls/hr Vancomycin HCl 1 gm/ Sodium (Chloride) 250 mls @ 167 mls/hr IVPB STAT STA; Protocol Stop: 05/28/18 13:25 Vancomycin HCl 1 gm/ Sodium (Chloride) 250 mls @ 166.7 mls/hr IVPB Q24H [facility]; Protocol Influenza Virus Vaccine (Fluzone Quad [id number]) 60 mcg IM .ONCE ONE Stop: 05/29/18 10:01 Insulin Aspart (Novolog) 0 unit SC ACHS [facility]; Protocol Multivitamins (Hexavitamin) 1 tab PO DAILY [facility] Last Admin: 05/28/18 09:33 Dose: 1 tab Rosuvastatin Calcium (Crestor) 5 mg PO HS [facility] Last Admin: 05/27/18 21:21 Dose: 5 mg Thiamine HCl (Vitamin B1 Tab) 50 mg PO DAILY [facility] Last Admin: 05/27/18 19:38 Dose: 50 mg Physical Exam - Constitutional Appears: No Acute Distress, Chronically Ill - Head Exam Head Exam: ATRAUMATIC, NORMOCEPHALIC - Eye Exam Eye Exam: PERRL. absent: Scleral icterus - ENT Exam ENT Exam: Mucous Membranes Dry, Normal External Ear Exam - Neck Exam Neck exam: Negative for: Lymphadenopathy - Respiratory Exam Respiratory Exam: Decreased Breath Sounds, Clear to Auscultation Bilateral - Cardiovascular Exam Cardiovascular Exam: REGULAR RHYTHM, +S1, +S2 - GI/Abdominal Exam GI & Abdominal Exam: Diminished Bowel Sounds, Soft. absent: Tenderness - Rectal Exam Rectal Exam: Deferred - Exam Exam: NORMAL INSPECTION - Extremities Exam Extremities exam: Positive for: calf tenderness. Negative for: pedal edema, tenderness, pedal pulses present Additional comments: s/p amp 3digits 3 4 5 right foot amp digit left foot pulses non p[alpable dry skin / ulcers on ant legs bilat - Back Exam Back exam: absent: CVA tenderness (L), CVA tenderness (R), paraspinal tenderness - Neurological Exam Neurological exam: Alert, CN II-XII Intact, Oriented x3, Reflexes Normal - Psychiatric Exam Psychiatric exam: Depressed - Skin Skin Exam: Dry Results - Vital Signs Recent Vital Signs: Last Vital Signs Temp 97.6 F 05/28/18 09:06 Pulse 74 05/28/18 12:10 Resp 19 05/28/18 12:10 BP 139/82 05/28/18 12:10 Pulse Ox 97 05/28/18 12:10 - Labs Result Diagrams: 05/28/18 08:45 05/28/18 08:32 Labs: Laboratory Results - last 24 hr 05/27/18 05/27/18 05/27/18 12:17 13:20 13:20 WBC 10.4 D RBC 4.08 L Hgb 12.5 Hct 36.4 MCV 89.3 MCH 30.7 MCHC 34.4 RDW 13.1 Plt Count 95 L D MPV 10.2 Neut % (Auto) 92.2 H Lymph % (Auto) 3.6 L [place] % (Auto) 3.5 Eos % (Auto) 0.5 Baso % (Auto) 0.2 Neut # (Auto) 9.5 H Lymph # (Auto) 0.4 L [place] # (Auto) 0.4 Eos # (Auto) 0.1 Baso # (Auto) 0.0 Neutrophils % (Manual) 72 Band Neutrophils % 22 H* Lymphocytes % (Manual) 5 L Monocytes % (Manual) 1 Metamyelocytes % Nucleated RBC % Toxic Granulation Platelet Estimate Slightly decreased L Large Platelets RBC Morphology Normal Hypochromasia (manual) Poikilocytosis (manual Anisocytosis (manual) Target Cells APTT D-Dimer, Quantitative pO2 VBG pH VBG pCO2 VBG HCO3 VBG Total CO2 VBG O2 Sat (Calc) VBG Base Excess VBG Potassium Glucose Lactate Sodium 123 L Potassium 4.1 Chloride 86 L Carbon Dioxide 25 Anion Gap 16 BUN 37 H Creatinine 1.6 H Est GFR ( Amer) 56 Est GFR (Non-Af Amer) 46 POC Glucose (mg/dL) 293 H Random Glucose 280 H Serum Osmolality Calcium 7.2 L Phosphorus Magnesium Total Bilirubin 1.0 AST 75 H D ALT 82 H D Alkaline Phosphatase 85 Total Creatine Kinase CK-MB (Mass) Troponin I 0.1700 H* NT-Pro-B Natriuret Pep 24597 H Total Protein 6.6 Albumin 3.2 L Globulin 3.4 Albumin/Globulin Ratio 1.0 Triglycerides Cholesterol LDL Cholesterol Direct HDL Cholesterol Procalcitonin Venous Blood Potassium Urine Color Urine Clarity Urine pH Ur Specific [place]anna Urine Protein Urine Glucose (UA) Urine Ketones Urine Blood Urine Nitrate Urine Bilirubin Urine Urobilinogen Ur Leukocyte Esterase Urine WBC (Auto) Urine RBC (Auto) Ur Squamous Epith Cells Amorphous Sediment Urine Bacteria Urine Osmolality Ur Random Sodium Random Vancomycin Influenza Typ A,B (EIA) 05/27/18 05/27/18 05/27/18 13:30 13:59 14:57 WBC RBC Hgb Hct MCV MCH MCHC RDW Plt Count MPV Neut % (Auto) Lymph % (Auto) [place] % (Auto) Eos % (Auto) Baso % (Auto) Neut # (Auto) Lymph # (Auto) [place] # (Auto) Eos # (Auto) Baso # (Auto) Neutrophils % (Manual) Band Neutrophils % Lymphocytes % (Manual) Monocytes % (Manual) Metamyelocytes % Nucleated RBC % Toxic Granulation Platelet Estimate Large Platelets RBC Morphology Hypochromasia (manual) Poikilocytosis (manual Anisocytosis (manual) Target Cells APTT D-Dimer, Quantitative pO2 21 L VBG pH 7.44 H VBG pCO2 40 VBG HCO3 25.5 VBG Total CO2 28.4 H VBG O2 Sat (Calc) 38.5 L VBG Base Excess 2.8 H VBG Potassium 4.0 Glucose 305 H Lactate 1.8 Sodium 123.0 L Potassium Chloride 89.0 L Carbon Dioxide Anion Gap BUN Creatinine Est GFR ( Amer) Est GFR (Non-Af Amer) POC Glucose (mg/dL) Random Glucose Serum Osmolality 278 Calcium Phosphorus Magnesium Total Bilirubin AST ALT Alkaline Phosphatase Total Creatine Kinase CK-MB (Mass) Troponin I NT-Pro-B Natriuret Pep Total Protein Albumin Globulin Albumin/Globulin Ratio Triglycerides Cholesterol LDL Cholesterol Direct HDL Cholesterol Procalcitonin Venous Blood Potassium 4.0 Urine Color Ana Urine Clarity Hazy Urine pH 5.0 Ur Specific Hanna 1.014 Urine Protein 3+ H Urine Glucose (UA) Normal Urine Ketones Trace Urine Blood 2+ H Urine Nitrate Negative Urine Bilirubin Negative Urine Urobilinogen Normal Ur Leukocyte Esterase Neg Urine WBC (Auto) 7 H Urine RBC (Auto) 4 H Ur Squamous Epith Cells < 1 Amorphous Sediment Rare H Urine Bacteria Rare Urine Osmolality Ur Random Sodium Random Vancomycin Influenza Typ A,B (EIA) 05/27/18 05/27/18 05/27/18 14:57 16:00 18:02 WBC RBC Hgb Hct MCV MCH MCHC RDW Plt Count MPV Neut % (Auto) Lymph % (Auto) [place] % (Auto) Eos % (Auto) Baso % (Auto) Neut # (Auto) Lymph # (Auto) [place] # (Auto) Eos # (Auto) Baso # (Auto) Neutrophils % (Manual) Band Neutrophils % Lymphocytes % (Manual) Monocytes % (Manual) Metamyelocytes % Nucleated RBC % Toxic Granulation Platelet Estimate Large Platelets RBC Morphology Hypochromasia (manual) Poikilocytosis (manual Anisocytosis (manual) Target Cells APTT D-Dimer, Quantitative pO2 VBG pH VBG pCO2 VBG HCO3 VBG Total CO2 VBG O2 Sat (Calc) VBG Base Excess VBG Potassium Glucose Lactate Sodium Potassium Chloride Carbon Dioxide Anion Gap BUN Creatinine Est GFR ( Amer) Est GFR (Non-Af Amer) POC Glucose (mg/dL) Random Glucose Serum Osmolality Calcium Phosphorus Magnesium Total Bilirubin AST ALT Alkaline Phosphatase Total Creatine Kinase CK-MB (Mass) Troponin I NT-Pro-B Natriuret Pep Total Protein Albumin Globulin Albumin/Globulin Ratio Triglycerides Cholesterol LDL Cholesterol Direct HDL Cholesterol Procalcitonin 27.53 H Venous Blood Potassium Urine Color Urine Clarity Urine pH Ur Specific [place]anna Urine Protein Urine Glucose (UA) Urine Ketones Urine Blood Urine Nitrate Urine Bilirubin Urine Urobilinogen Ur Leukocyte Esterase Urine WBC (Auto) Urine RBC (Auto) Ur Squamous Epith Cells Amorphous Sediment Urine Bacteria Urine Osmolality 438 Ur Random Sodium 6 Random Vancomycin Influenza Typ A,B (EIA) Negative for flu a/b 05/27/18 05/27/18 05/27/18 19:03 19:03 19:03 WBC RBC Hgb Hct MCV MCH MCHC RDW Plt Count MPV Neut % (Auto) Lymph % (Auto) [place] % (Auto) Eos % (Auto) Baso % (Auto) Neut # (Auto) Lymph # (Auto) [place] # (Auto) Eos # (Auto) Baso # (Auto) Neutrophils % (Manual) Band Neutrophils % Lymphocytes % (Manual) Monocytes % (Manual) Metamyelocytes % Nucleated RBC % Toxic Granulation Platelet Estimate Large Platelets RBC Morphology Hypochromasia (manual) Poikilocytosis (manual Anisocytosis (manual) Target Cells APTT 30 D-Dimer, Quantitative 1468 H pO2 VBG pH VBG pCO2 VBG HCO3 VBG Total CO2 VBG O2 Sat (Calc) VBG Base Excess VBG Potassium Glucose Lactate Sodium Potassium Chloride Carbon Dioxide Anion Gap BUN Creatinine Est GFR ( Amer) Est GFR (Non-Af Amer) POC Glucose (mg/dL) Random Glucose Serum Osmolality Calcium Phosphorus Magnesium Total Bilirubin AST ALT Alkaline Phosphatase Total Creatine Kinase 192 H CK-MB (Mass) 0.71 Troponin I 0.2330 H* NT-Pro-B Natriuret Pep Total Protein Albumin Globulin Albumin/Globulin Ratio Triglycerides Cholesterol LDL Cholesterol Direct HDL Cholesterol Procalcitonin Venous Blood Potassium Urine Color Urine Clarity Urine pH Ur Specific [place]anna Urine Protein Urine Glucose (UA) Urine Ketones Urine Blood Urine Nitrate Urine Bilirubin Urine Urobilinogen Ur Leukocyte Esterase Urine WBC (Auto) Urine RBC (Auto) Ur Squamous Epith Cells Amorphous Sediment Urine Bacteria Urine Osmolality Ur Random Sodium Random Vancomycin Influenza Typ A,B (EIA) 05/27/18 05/27/18 05/27/18 19:05 20:11 21:09 WBC 10.1 RBC 3.60 L Hgb 10.9 L Hct 31.9 L MCV 88.8 MCH 30.4 MCHC 34.2 RDW 13.0 Plt Count 76 L MPV 10.2 Neut % (Auto) 89.3 H Lymph % (Auto) 5.4 L [place] % (Auto) 4.5 Eos % (Auto) 0.4 Baso % (Auto) 0.4 Neut # (Auto) 9.0 H Lymph # (Auto) 0.5 L [place] # (Auto) 0.5 Eos # (Auto) 0.0 Baso # (Auto) 0.0 Neutrophils % (Manual) 58 Band Neutrophils % 34 H* Lymphocytes % (Manual) 6 L Monocytes % (Manual) 2 Metamyelocytes % Nucleated RBC % 1 H Toxic Granulation Platelet Estimate Decreased L Large Platelets RBC Morphology Hypochromasia (manual) Slight Poikilocytosis (manual Slight Anisocytosis (manual) Slight Target Cells Slight APTT D-Dimer, Quantitative pO2 22 L VBG pH 7.38 VBG pCO2 44 VBG HCO3 23.6 VBG Total CO2 27.4 VBG O2 Sat (Calc) 38.5 L VBG Base Excess 0.5 VBG Potassium 3.4 L Glucose 176 H Lactate 1.6 Sodium 128.0 L Potassium Chloride 94.0 L Carbon Dioxide Anion Gap BUN Creatinine Est GFR ( Amer) Est GFR (Non-Af Amer) POC Glucose (mg/dL) Random Glucose Serum Osmolality Calcium Phosphorus Magnesium Total Bilirubin AST ALT Alkaline Phosphatase Total Creatine Kinase CK-MB (Mass) Troponin I NT-Pro-B Natriuret Pep Total Protein Albumin Globulin Albumin/Globulin Ratio Triglycerides Cholesterol LDL Cholesterol Direct HDL Cholesterol Procalcitonin Venous Blood Potassium 3.4 L Urine Color Urine Clarity Urine pH Ur Specific [place] Urine Protein Urine Glucose (UA) Urine Ketones Urine Blood Urine Nitrate Urine Bilirubin Urine Urobilinogen Ur Leukocyte Esterase Urine WBC (Auto) Urine RBC (Auto) Ur Squamous Epith Cells Amorphous Sediment Urine Bacteria Urine Osmolality Ur Random Sodium Random Vancomycin 14.7 Influenza Typ A,B (EIA) 05/27/18 05/27/18 05/28/18 21:11 21:19 02:00 WBC RBC Hgb Hct MCV MCH MCHC RDW Plt Count MPV Neut % (Auto) Lymph % (Auto) [place] % (Auto) Eos % (Auto) Baso % (Auto) Neut # (Auto) Lymph # (Auto) [place] # (Auto) Eos # (Auto) Baso # (Auto) Neutrophils % (Manual) Band Neutrophils % Lymphocytes % (Manual) Monocytes % (Manual) Metamyelocytes % Nucleated RBC % Toxic Granulation Platelet Estimate Large Platelets RBC Morphology Hypochromasia (manual) Poikilocytosis (manual Anisocytosis (manual) Target Cells APTT D-Dimer, Quantitative pO2 VBG pH VBG pCO2 VBG HCO3 VBG Total CO2 VBG O2 Sat (Calc) VBG Base Excess VBG Potassium Glucose Lactate Sodium 126 L Potassium 3.5 L Chloride 92 L Carbon Dioxide 22 Anion Gap 16 BUN 43 H Creatinine 2.1 H Est GFR ( Amer) 41 Est GFR (Non-Af Amer) 34 POC Glucose (mg/dL) 170 H Random Glucose 160 H Serum Osmolality Calcium 6.9 L Phosphorus Magnesium Total Bilirubin 1.0 AST 78 H ALT 78 H Alkaline Phosphatase 78 Total Creatine Kinase 156 CK-MB (Mass) 1.07 Troponin I 0.2220 H* NT-Pro-B Natriuret Pep Total Protein 6.0 L Albumin 2.8 L Globulin 3.2 Albumin/Globulin Ratio 0.9 L Triglycerides Cholesterol LDL Cholesterol Direct HDL Cholesterol Procalcitonin Venous Blood Potassium Urine Color Urine Clarity Urine pH Ur Specific [place] Urine Protein Urine Glucose (UA) Urine Ketones Urine Blood Urine Nitrate Urine Bilirubin Urine Urobilinogen Ur Leukocyte Esterase Urine WBC (Auto) Urine RBC (Auto) Ur Squamous Epith Cells Amorphous Sediment Urine Bacteria Urine Osmolality Ur Random Sodium Random Vancomycin Influenza Typ A,B (EIA) 05/28/18 05/28/18 05/28/18 02:00 04:00 07:57 WBC 8.8 RBC 4.09 L Hgb 12.5 Hct 36.5 MCV 89.2 MCH 30.6 MCHC 34.3 RDW 13.3 Plt Count 77 L MPV 10.5 Neut % (Auto) 88.5 H Lymph % (Auto) 6.3 L [place] % (Auto) 4.3 Eos % (Auto) 0.3 Baso % (Auto) 0.6 Neut # (Auto) 7.8 H Lymph # (Auto) 0.6 L [place] # (Auto) 0.4 Eos # (Auto) 0.0 Baso # (Auto) 0.1 Neutrophils % (Manual) 67 Band Neutrophils % 27 H* Lymphocytes % (Manual) 4 L Monocytes % (Manual) 2 Metamyelocytes % Nucleated RBC % Toxic Granulation Present Platelet Estimate Decreased L Large Platelets Present RBC Morphology Normal Hypochromasia (manual) Poikilocytosis (manual Anisocytosis (manual) Target Cells APTT 42 H D D-Dimer, Quantitative pO2 VBG pH VBG pCO2 VBG HCO3 VBG Total CO2 VBG O2 Sat (Calc) VBG Base Excess VBG Potassium Glucose Lactate Sodium Potassium Chloride Carbon Dioxide Anion Gap BUN Creatinine Est GFR ( Amer) Est GFR (Non-Af Amer) POC Glucose (mg/dL) 196 H Random Glucose Serum Osmolality Calcium Phosphorus Magnesium Total Bilirubin AST ALT Alkaline Phosphatase Total Creatine Kinase CK-MB (Mass) Troponin I NT-Pro-B Natriuret Pep Total Protein Albumin Globulin Albumin/Globulin Ratio Triglycerides Cholesterol LDL Cholesterol Direct HDL Cholesterol Procalcitonin Venous Blood Potassium Urine Color Urine Clarity Urine pH Ur Specific [place] Urine Protein Urine Glucose (UA) Urine Ketones Urine Blood Urine Nitrate Urine Bilirubin Urine Urobilinogen Ur Leukocyte Esterase Urine WBC (Auto) Urine RBC (Auto) Ur Squamous Epith Cells Amorphous Sediment Urine Bacteria Urine Osmolality Ur Random Sodium Random Vancomycin Influenza Typ A,B (EIA) 05/28/18 05/28/18 05/28/18 08:32 08:32 08:45 WBC 8.5 RBC 4.14 L Hgb 12.7 Hct 37.1 MCV 89.6 MCH 30.7 MCHC 34.2 RDW 13.1 Plt Count 82 L MPV 10.4 Neut % (Auto) 89.5 H Lymph % (Auto) 6.4 L [place] % (Auto) 3.8 Eos % (Auto) 0.0 Baso % (Auto) 0.3 Neut # (Auto) 7.6 H Lymph # (Auto) 0.5 L [place] # (Auto) 0.3 Eos # (Auto) 0.0 Baso # (Auto) 0.0 Neutrophils % (Manual) 70 Band Neutrophils % 20 H* Lymphocytes % (Manual) 5 L Monocytes % (Manual) 4 Metamyelocytes % 1 H Nucleated RBC % Toxic Granulation Platelet Estimate Decreased L Large Platelets Present RBC Morphology Normal Hypochromasia (manual) Poikilocytosis (manual Anisocytosis (manual) Target Cells APTT 55 H D D-Dimer, Quantitative pO2 VBG pH VBG pCO2 VBG HCO3 VBG Total CO2 VBG O2 Sat (Calc) VBG Base Excess VBG Potassium Glucose Lactate Sodium 128 L Potassium 4.2 Chloride 93 L Carbon Dioxide 20 L Anion Gap 20 BUN 56 H Creatinine 3.2 H Est GFR ( Amer) 25 Est GFR (Non-Af Amer) 21 POC Glucose (mg/dL) Random Glucose 214 H Serum Osmolality Calcium 7.1 L Phosphorus 4.7 H Magnesium 2.3 Total Bilirubin 0.7 AST 78 H ALT 93 H Alkaline Phosphatase 78 Total Creatine Kinase CK-MB (Mass) Troponin I NT-Pro-B Natriuret Pep Total Protein 6.4 Albumin 2.9 L Globulin 3.5 Albumin/Globulin Ratio 0.8 L Triglycerides 320 H D Cholesterol 108 LDL Cholesterol Direct < 30 HDL Cholesterol 14 L Procalcitonin Venous Blood Potassium Urine Color Urine Clarity Urine pH Ur Specific [place] Urine Protein Urine Glucose (UA) Urine Ketones Urine Blood Urine Nitrate Urine Bilirubin Urine Urobilinogen Ur Leukocyte Esterase Urine WBC (Auto) Urine RBC (Auto) Ur Squamous Epith Cells Amorphous Sediment Urine Bacteria Urine Osmolality Ur Random Sodium Random Vancomycin Influenza Typ A,B (EIA) 05/28/18 05/28/18 10:58 11:22 WBC RBC Hgb Hct MCV MCH MCHC RDW Plt Count MPV Neut % (Auto) Lymph % (Auto) [place] % (Auto) Eos % (Auto) Baso % (Auto) Neut # (Auto) Lymph # (Auto) [place] # (Auto) Eos # (Auto) Baso # (Auto) Neutrophils % (Manual) Band Neutrophils % Lymphocytes % (Manual) Monocytes % (Manual) Metamyelocytes % Nucleated RBC % Toxic Granulation Platelet Estimate Large Platelets RBC Morphology Hypochromasia (manual) Poikilocytosis (manual Anisocytosis (manual) Target Cells APTT D-Dimer, Quantitative pO2 VBG pH VBG pCO2 VBG HCO3 VBG Total CO2 VBG O2 Sat (Calc) VBG Base Excess VBG Potassium Glucose Lactate Sodium Potassium Chloride Carbon Dioxide Anion Gap BUN Creatinine Est GFR ( Amer) Est GFR (Non-Af Amer) POC Glucose (mg/dL) 236 H Random Glucose Serum Osmolality Calcium Phosphorus Magnesium Total Bilirubin AST ALT Alkaline Phosphatase Total Creatine Kinase CK-MB (Mass) Troponin I NT-Pro-B Natriuret Pep Total Protein Albumin Globulin Albumin/Globulin Ratio Triglycerides Cholesterol LDL Cholesterol Direct HDL Cholesterol Procalcitonin Venous Blood Potassium Urine Color Urine Clarity Urine pH Ur Specific [place] Urine Protein Urine Glucose (UA) Urine Ketones Urine Blood Urine Nitrate Urine Bilirubin Urine Urobilinogen Ur Leukocyte Esterase Urine WBC (Auto) Urine RBC (Auto) Ur Squamous Epith Cells Amorphous Sediment Urine Bacteria Urine Osmolality Ur Random Sodium Random Vancomycin 8.4 Influenza Typ A,B (EIA) Assessment & Plan (1) Bandemia Status: Acute (2) CHF exacerbation Status: Acute (3) Hyponatremia Status: Acute (4) NSTEMI (non-ST elevated myocardial infarction) Status: Acute (5) EL (acute kidney injury) Status: Acute (6) Abnormal EKG Status: Acute (7) Acute renal failure Status: Acute (8) Cellulitis of foot Status: Acute (9) Diabetic ulcer of foot associated with diabetes mellitus due to underlying condition, limited to breakdown of skin Status: Acute - Assessment and Plan (Free Text) Assessment: bacteremia possibly from right foot r/o chronic OM r/o endocarditis consider Ceretec scan, echo / INA cont IV antibiotics Vanco/Cefepime
--- NOTE | 2018-05-28 12:54 | CP.PCM.CON ---
History of Present Illness - History of Present Illness History of Present Illness: renal consult 48 year old male with past medical history including uncontrolled IDDM, hx of diabetic foot ulcer, L ventricular dysfunction s/p biventricular AICD placement who presents to the ED for dizziness, general malaise, ,on admission noted to have NSTEMI, sepsis syndrome and el. no prior hx of ckd complete ros is negative meds reviewed family hx negative for ckd non smoker no alcohol vitals reviewed heent normal op moist no jvd s1s2 present aicd normal no resp distress abd soft no edema ao times 3 skin normal EL/sepsis syndrome/dm/cad with aicd/nstemi/hyponatremia/acidosis el sec to prerenal atn sec to sepsis induced el non oliguric monitor I&Os i have ordered urine for proteinuria abx per icu team, dose for reduced gfr cautious with iv fluids as low EF ok to lasix as needed for diuresis d/w icu attending Past Patient History - Infectious Disease Hx of Infectious Diseases: None - Tetanus Immunizations Tetanus Immunization: Unknown - Past Medical History & Family History Past Medical History?: Yes - Past Social History Smoking Status: Never Smoked - CARDIAC Hx Hypercholesterolemia: Yes Hx Hypertension: Yes Hx Pacemaker: Yes (Lt. sub clavian) - PULMONARY Hx Respiratory Disorders: No - NEUROLOGICAL Hx Neurological Disorder: No - HEENT Hx HEENT Problems: No Hx Cataracts: Yes - RENAL Hx Chronic Kidney Disease: No - ENDOCRINE/METABOLIC Hx Endocrine Disorders: Yes Hx Diabetes Mellitus Type 1: Yes - HEMATOLOGICAL/ONCOLOGICAL Hx Blood Disorders: No - INTEGUMENTARY Hx Dermatological Problems: No - MUSCULOSKELETAL/RHEUMATOLOGICAL Hx Musculoskeletal Disorders: No Hx Falls: No - GASTROINTESTINAL Hx Gastrointestinal Disorders: No - GENITOURINARY/GYNECOLOGICAL Hx Genitourinary Disorders: No - PSYCHIATRIC Hx Substance Use: No - SURGICAL HISTORY Hx Surgeries: Yes Other/Comment: Right 3 digits amputation foot - ANESTHESIA Hx Anesthesia: Yes Hx Anesthesia Reactions: No Hx Malignant Hyperthermia: No Meds Allergies/Adverse Reactions: Allergies Allergy/AdvReac Type Severity Reaction Status Date / Time No Known Allergies Allergy Verified 05/27/18 12:15 - Medications Medications: Current Medications Aspirin (Aspirin Chewable) 81 mg PO DAILY [facility] Last Admin: 05/28/18 09:33 Dose: 81 mg Carvedilol (Coreg) 12.5 mg PO BID [facility] Last Admin: 05/28/18 09:34 Dose: 12.5 mg Clopidogrel Bisulfate (Plavix) 75 mg PO DAILY [facility] Last Admin: 05/28/18 09:34 Dose: 75 mg Dextrose (Dextrose 50% Inj) 0 ml IV STAT PRN; Protocol PRN Reason: Hypoglycemia Protocol Dextrose (Glutose 15) 0 gm PO ONCE PRN; Protocol PRN Reason: Hypoglycemia Protocol Folic Acid (Folic Acid) 1 mg PO DAILY [facility] Last Admin: 05/28/18 09:33 Dose: 1 mg Glucagon (Glucagen Diagnostic Kit) 0 mg IM STAT PRN; Protocol PRN Reason: Hypoglycemia Protocol Azithromycin 500 mg/ Sodium (Chloride) 250 mls @ 250 mls/hr IVPB DAILY [facility]; Protocol Last Admin: 05/28/18 09:36 Dose: 250 mls/hr Dextrose (Dextrose 5% In Water 1000 Ml) 1,000 mls @ 0 mls/hr IV .Q0M PRN; Protocol PRN Reason: Hypoglycemia Protocol Cefepime HCl (Maxipime Iv 2 Gm Premix) 2 gm in 100 mls @ 200 mls/hr IVPB Q12H [facility]; Protocol Stop: 06/01/18 18:31 Last Admin: 05/28/18 06:22 Dose: 200 mls/hr Heparin Sodium/Sodium Chloride (Heparin 06168 Units/250ml 1/2 Normal Saline) 25,000 units in 250 mls @ 12.002 mls/hr IV .[id number] PRN; Protocol PRN Reason: PROTOCOL Last Admin: 05/28/18 03:15 Dose: 14 units/kg/hr, 12.002 mls/hr Vancomycin HCl 1 gm/ Sodium (Chloride) 250 mls @ 167 mls/hr IVPB STAT STA; Protocol Stop: 05/28/18 13:25 Vancomycin/Sodium Chloride (Vancomycin 1 Gm/Ns 200 Ml) 1 gm in 200 mls @ 166.7 mls/hr IVPB Q24H [facility]; Protocol Stop: 06/03/18 12:46 Influenza Virus Vaccine (Fluzone Quad [id number]) 60 mcg IM .ONCE ONE Stop: 05/29/18 10:01 Insulin Aspart (Novolog) 0 unit SC ACHS [facility]; Protocol Multivitamins (Hexavitamin) 1 tab PO DAILY [facility] Last Admin: 05/28/18 09:33 Dose: 1 tab Rosuvastatin Calcium (Crestor) 5 mg PO HS [facility] Last Admin: 05/27/18 21:21 Dose: 5 mg Thiamine HCl (Vitamin B1 Tab) 50 mg PO DAILY [facility] Last Admin: 05/27/18 19:38 Dose: 50 mg Results - Vital Signs Recent Vital Signs: Last Vital Signs Temp 97.6 F 05/28/18 09:06 Pulse 74 05/28/18 12:10 Resp 19 05/28/18 12:10 BP 139/82 05/28/18 12:10 Pulse Ox 97 05/28/18 12:10 - Labs Result Diagrams: 05/28/18 08:45 05/28/18 08:32 Labs: Laboratory Results - last 24 hr 05/27/18 05/27/18 05/27/18 13:20 13:20 13:30 WBC 10.4 D RBC 4.08 L Hgb 12.5 Hct 36.4 MCV 89.3 MCH 30.7 MCHC 34.4 RDW 13.1 Plt Count 95 L D MPV 10.2 Neut % (Auto) 92.2 H Lymph % (Auto) 3.6 L [place] % (Auto) 3.5 Eos % (Auto) 0.5 Baso % (Auto) 0.2 Neut # (Auto) 9.5 H Lymph # (Auto) 0.4 L [place] # (Auto) 0.4 Eos # (Auto) 0.1 Baso # (Auto) 0.0 Neutrophils % (Manual) 72 Band Neutrophils % 22 H* Lymphocytes % (Manual) 5 L Monocytes % (Manual) 1 Metamyelocytes % Nucleated RBC % Toxic Granulation Platelet Estimate Slightly decreased L Large Platelets RBC Morphology Normal Hypochromasia (manual) Poikilocytosis (manual Anisocytosis (manual) Target Cells APTT D-Dimer, Quantitative pO2 21 L VBG pH 7.44 H VBG pCO2 40 VBG HCO3 25.5 VBG Total CO2 28.4 H VBG O2 Sat (Calc) 38.5 L VBG Base Excess 2.8 H VBG Potassium 4.0 Glucose 305 H Lactate 1.8 Sodium 123 L 123.0 L Potassium 4.1 Chloride 86 L 89.0 L Carbon Dioxide 25 Anion Gap 16 BUN 37 H Creatinine 1.6 H Est GFR ( Amer) 56 Est GFR (Non-Af Amer) 46 POC Glucose (mg/dL) Random Glucose 280 H Serum Osmolality Calcium 7.2 L Phosphorus Magnesium Total Bilirubin 1.0 AST 75 H D ALT 82 H D Alkaline Phosphatase 85 Total Creatine Kinase CK-MB (Mass) Troponin I 0.1700 H* NT-Pro-B Natriuret Pep 77190 H Total Protein 6.6 Albumin 3.2 L Globulin 3.4 Albumin/Globulin Ratio 1.0 Triglycerides Cholesterol LDL Cholesterol Direct HDL Cholesterol Procalcitonin Venous Blood Potassium 4.0 Urine Color Urine Clarity Urine pH Ur Specific [place] Urine Protein Urine Glucose (UA) Urine Ketones Urine Blood Urine Nitrate Urine Bilirubin Urine Urobilinogen Ur Leukocyte Esterase Urine WBC (Auto) Urine RBC (Auto) Ur Squamous Epith Cells Amorphous Sediment Urine Bacteria Urine Osmolality Ur Random Sodium Random Vancomycin Influenza Typ A,B (EIA) 05/27/18 05/27/18 05/27/18 13:59 14:57 14:57 WBC RBC Hgb Hct MCV MCH MCHC RDW Plt Count MPV Neut % (Auto) Lymph % (Auto) [place] % (Auto) Eos % (Auto) Baso % (Auto) Neut # (Auto) Lymph # (Auto) [place] # (Auto) Eos # (Auto) Baso # (Auto) Neutrophils % (Manual) Band Neutrophils % Lymphocytes % (Manual) Monocytes % (Manual) Metamyelocytes % Nucleated RBC % Toxic Granulation Platelet Estimate Large Platelets RBC Morphology Hypochromasia (manual) Poikilocytosis (manual Anisocytosis (manual) Target Cells APTT D-Dimer, Quantitative pO2 VBG pH VBG pCO2 VBG HCO3 VBG Total CO2 VBG O2 Sat (Calc) VBG Base Excess VBG Potassium Glucose Lactate Sodium Potassium Chloride Carbon Dioxide Anion Gap BUN Creatinine Est GFR ( Amer) Est GFR (Non-Af Amer) POC Glucose (mg/dL) Random Glucose Serum Osmolality 278 Calcium Phosphorus Magnesium Total Bilirubin AST ALT Alkaline Phosphatase Total Creatine Kinase CK-MB (Mass) Troponin I NT-Pro-B Natriuret Pep Total Protein Albumin Globulin Albumin/Globulin Ratio Triglycerides Cholesterol LDL Cholesterol Direct HDL Cholesterol Procalcitonin Venous Blood Potassium Urine Color [place] Urine Clarity Hazy Urine pH 5.0 Ur Specific [place] 1.014 Urine Protein 3+ H Urine Glucose (UA) Normal Urine Ketones Trace Urine Blood 2+ H Urine Nitrate Negative Urine Bilirubin Negative Urine Urobilinogen Normal Ur Leukocyte Esterase Neg Urine WBC (Auto) 7 H Urine RBC (Auto) 4 H Ur Squamous Epith Cells < 1 Amorphous Sediment Rare H Urine Bacteria Rare Urine Osmolality 438 Ur Random Sodium 6 Random Vancomycin Influenza Typ A,B (EIA) 05/27/18 05/27/18 05/27/18 16:00 18:02 19:03 WBC RBC Hgb Hct MCV MCH MCHC RDW Plt Count MPV Neut % (Auto) Lymph % (Auto) [place] % (Auto) Eos % (Auto) Baso % (Auto) Neut # (Auto) Lymph # (Auto) [place] # (Auto) Eos # (Auto) Baso # (Auto) Neutrophils % (Manual) Band Neutrophils % Lymphocytes % (Manual) Monocytes % (Manual) Metamyelocytes % Nucleated RBC % Toxic Granulation Platelet Estimate Large Platelets RBC Morphology Hypochromasia (manual) Poikilocytosis (manual Anisocytosis (manual) Target Cells APTT D-Dimer, Quantitative pO2 VBG pH VBG pCO2 VBG HCO3 VBG Total CO2 VBG O2 Sat (Calc) VBG Base Excess VBG Potassium Glucose Lactate Sodium Potassium Chloride Carbon Dioxide Anion Gap BUN Creatinine Est GFR ( Amer) Est GFR (Non-Af Amer) POC Glucose (mg/dL) Random Glucose Serum Osmolality Calcium Phosphorus Magnesium Total Bilirubin AST ALT Alkaline Phosphatase Total Creatine Kinase 192 H CK-MB (Mass) 0.71 Troponin I 0.2330 H* NT-Pro-B Natriuret Pep Total Protein Albumin Globulin Albumin/Globulin Ratio Triglycerides Cholesterol LDL Cholesterol Direct HDL Cholesterol Procalcitonin 27.53 H Venous Blood Potassium Urine Color Urine Clarity Urine pH Ur Specific [place] Urine Protein Urine Glucose (UA) Urine Ketones Urine Blood Urine Nitrate Urine Bilirubin Urine Urobilinogen Ur Leukocyte Esterase Urine WBC (Auto) Urine RBC (Auto) Ur Squamous Epith Cells Amorphous Sediment Urine Bacteria Urine Osmolality Ur Random Sodium Random Vancomycin Influenza Typ A,B (EIA) Negative for flu a/b 05/27/18 05/27/18 05/27/18 19:03 19:03 19:05 WBC RBC Hgb Hct MCV MCH MCHC RDW Plt Count MPV Neut % (Auto) Lymph % (Auto) [place] % (Auto) Eos % (Auto) Baso % (Auto) Neut # (Auto) Lymph # (Auto) [place] # (Auto) Eos # (Auto) Baso # (Auto) Neutrophils % (Manual) Band Neutrophils % Lymphocytes % (Manual) Monocytes % (Manual) Metamyelocytes % Nucleated RBC % Toxic Granulation Platelet Estimate Large Platelets RBC Morphology Hypochromasia (manual) Poikilocytosis (manual Anisocytosis (manual) Target Cells APTT 30 D-Dimer, Quantitative 1468 H pO2 22 L VBG pH 7.38 VBG pCO2 44 VBG HCO3 23.6 VBG Total CO2 27.4 VBG O2 Sat (Calc) 38.5 L VBG Base Excess 0.5 VBG Potassium 3.4 L Glucose 176 H Lactate 1.6 Sodium 128.0 L Potassium Chloride 94.0 L Carbon Dioxide Anion Gap BUN Creatinine Est GFR ( Amer) Est GFR (Non-Af Amer) POC Glucose (mg/dL) Random Glucose Serum Osmolality Calcium Phosphorus Magnesium Total Bilirubin AST ALT Alkaline Phosphatase Total Creatine Kinase CK-MB (Mass) Troponin I NT-Pro-B Natriuret Pep Total Protein Albumin Globulin Albumin/Globulin Ratio Triglycerides Cholesterol LDL Cholesterol Direct HDL Cholesterol Procalcitonin Venous Blood Potassium 3.4 L Urine Color Urine Clarity Urine pH Ur Specific [place] Urine Protein Urine Glucose (UA) Urine Ketones Urine Blood Urine Nitrate Urine Bilirubin Urine Urobilinogen Ur Leukocyte Esterase Urine WBC (Auto) Urine RBC (Auto) Ur Squamous Epith Cells Amorphous Sediment Urine Bacteria Urine Osmolality Ur Random Sodium Random Vancomycin Influenza Typ A,B (EIA) 05/27/18 05/27/18 05/27/18 20:11 21:09 21:11 WBC 10.1 RBC 3.60 L Hgb 10.9 L Hct 31.9 L MCV 88.8 MCH 30.4 MCHC 34.2 RDW 13.0 Plt Count 76 L MPV 10.2 Neut % (Auto) 89.3 H Lymph % (Auto) 5.4 L [place] % (Auto) 4.5 Eos % (Auto) 0.4 Baso % (Auto) 0.4 Neut # (Auto) 9.0 H Lymph # (Auto) 0.5 L [place] # (Auto) 0.5 Eos # (Auto) 0.0 Baso # (Auto) 0.0 Neutrophils % (Manual) 58 Band Neutrophils % 34 H* Lymphocytes % (Manual) 6 L Monocytes % (Manual) 2 Metamyelocytes % Nucleated RBC % 1 H Toxic Granulation Platelet Estimate Decreased L Large Platelets RBC Morphology Hypochromasia (manual) Slight Poikilocytosis (manual Slight Anisocytosis (manual) Slight Target Cells Slight APTT D-Dimer, Quantitative pO2 VBG pH VBG pCO2 VBG HCO3 VBG Total CO2 VBG O2 Sat (Calc) VBG Base Excess VBG Potassium Glucose Lactate Sodium 126 L Potassium 3.5 L Chloride 92 L Carbon Dioxide 22 Anion Gap 16 BUN 43 H Creatinine 2.1 H Est GFR ( Amer) 41 Est GFR (Non-Af Amer) 34 POC Glucose (mg/dL) Random Glucose 160 H Serum Osmolality Calcium 6.9 L Phosphorus Magnesium Total Bilirubin 1.0 AST 78 H ALT 78 H Alkaline Phosphatase 78 Total Creatine Kinase CK-MB (Mass) Troponin I NT-Pro-B Natriuret Pep Total Protein 6.0 L Albumin 2.8 L Globulin 3.2 Albumin/Globulin Ratio 0.9 L Triglycerides Cholesterol LDL Cholesterol Direct HDL Cholesterol Procalcitonin Venous Blood Potassium Urine Color Urine Clarity Urine pH Ur Specific [place] Urine Protein Urine Glucose (UA) Urine Ketones Urine Blood Urine Nitrate Urine Bilirubin Urine Urobilinogen Ur Leukocyte Esterase Urine WBC (Auto) Urine RBC (Auto) Ur Squamous Epith Cells Amorphous Sediment Urine Bacteria Urine Osmolality Ur Random Sodium Random Vancomycin 14.7 Influenza Typ A,B (EIA) 05/27/18 05/28/18 05/28/18 21:19 02:00 02:00 WBC RBC Hgb Hct MCV MCH MCHC RDW Plt Count MPV Neut % (Auto) Lymph % (Auto) [place] % (Auto) Eos % (Auto) Baso % (Auto) Neut # (Auto) Lymph # (Auto) [place] # (Auto) Eos # (Auto) Baso # (Auto) Neutrophils % (Manual) Band Neutrophils % Lymphocytes % (Manual) Monocytes % (Manual) Metamyelocytes % Nucleated RBC % Toxic Granulation Platelet Estimate Large Platelets RBC Morphology Hypochromasia (manual) Poikilocytosis (manual Anisocytosis (manual) Target Cells APTT 42 H D D-Dimer, Quantitative pO2 VBG pH VBG pCO2 VBG HCO3 VBG Total CO2 VBG O2 Sat (Calc) VBG Base Excess VBG Potassium Glucose Lactate Sodium Potassium Chloride Carbon Dioxide Anion Gap BUN Creatinine Est GFR ( Amer) Est GFR (Non-Af Amer) POC Glucose (mg/dL) 170 H Random Glucose Serum Osmolality Calcium Phosphorus Magnesium Total Bilirubin AST ALT Alkaline Phosphatase Total Creatine Kinase 156 CK-MB (Mass) 1.07 Troponin I 0.2220 H* NT-Pro-B Natriuret Pep Total Protein Albumin Globulin Albumin/Globulin Ratio Triglycerides Cholesterol LDL Cholesterol Direct HDL Cholesterol Procalcitonin Venous Blood Potassium Urine Color Urine Clarity Urine pH Ur Specific [place] Urine Protein Urine Glucose (UA) Urine Ketones Urine Blood Urine Nitrate Urine Bilirubin Urine Urobilinogen Ur Leukocyte Esterase Urine WBC (Auto) Urine RBC (Auto) Ur Squamous Epith Cells Amorphous Sediment Urine Bacteria Urine Osmolality Ur Random Sodium Random Vancomycin Influenza Typ A,B (EIA) 05/28/18 05/28/18 05/28/18 04:00 07:57 08:32 WBC 8.8 RBC 4.09 L Hgb 12.5 Hct 36.5 MCV 89.2 MCH 30.6 MCHC 34.3 RDW 13.3 Plt Count 77 L MPV 10.5 Neut % (Auto) 88.5 H Lymph % (Auto) 6.3 L [place] % (Auto) 4.3 Eos % (Auto) 0.3 Baso % (Auto) 0.6 Neut # (Auto) 7.8 H Lymph # (Auto) 0.6 L [place] # (Auto) 0.4 Eos # (Auto) 0.0 Baso # (Auto) 0.1 Neutrophils % (Manual) 67 Band Neutrophils % 27 H* Lymphocytes % (Manual) 4 L Monocytes % (Manual) 2 Metamyelocytes % Nucleated RBC % Toxic Granulation Present Platelet Estimate Decreased L Large Platelets Present RBC Morphology Normal Hypochromasia (manual) Poikilocytosis (manual Anisocytosis (manual) Target Cells APTT D-Dimer, Quantitative pO2 VBG pH VBG pCO2 VBG HCO3 VBG Total CO2 VBG O2 Sat (Calc) VBG Base Excess VBG Potassium Glucose Lactate Sodium 128 L Potassium 4.2 Chloride 93 L Carbon Dioxide 20 L Anion Gap 20 BUN 56 H Creatinine 3.2 H Est GFR ( Amer) 25 Est GFR (Non-Af Amer) 21 POC Glucose (mg/dL) 196 H Random Glucose 214 H Serum Osmolality Calcium 7.1 L Phosphorus 4.7 H Magnesium 2.3 Total Bilirubin 0.7 AST 78 H ALT 93 H Alkaline Phosphatase 78 Total Creatine Kinase CK-MB (Mass) Troponin I NT-Pro-B Natriuret Pep Total Protein 6.4 Albumin 2.9 L Globulin 3.5 Albumin/Globulin Ratio 0.8 L Triglycerides 320 H D Cholesterol 108 LDL Cholesterol Direct < 30 HDL Cholesterol 14 L Procalcitonin Venous Blood Potassium Urine Color Urine Clarity Urine pH Ur Specific [place] Urine Protein Urine Glucose (UA) Urine Ketones Urine Blood Urine Nitrate Urine Bilirubin Urine Urobilinogen Ur Leukocyte Esterase Urine WBC (Auto) Urine RBC (Auto) Ur Squamous Epith Cells Amorphous Sediment Urine Bacteria Urine Osmolality Ur Random Sodium Random Vancomycin Influenza Typ A,B (EIA) 05/28/18 05/28/18 05/28/18 08:32 08:45 10:58 WBC 8.5 RBC 4.14 L Hgb 12.7 Hct 37.1 MCV 89.6 MCH 30.7 MCHC 34.2 RDW 13.1 Plt Count 82 L MPV 10.4 Neut % (Auto) 89.5 H Lymph % (Auto) 6.4 L [place] % (Auto) 3.8 Eos % (Auto) 0.0 Baso % (Auto) 0.3 Neut # (Auto) 7.6 H Lymph # (Auto) 0.5 L [place] # (Auto) 0.3 Eos # (Auto) 0.0 Baso # (Auto) 0.0 Neutrophils % (Manual) 70 Band Neutrophils % 20 H* Lymphocytes % (Manual) 5 L Monocytes % (Manual) 4 Metamyelocytes % 1 H Nucleated RBC % Toxic Granulation Platelet Estimate Decreased L Large Platelets Present RBC Morphology Normal Hypochromasia (manual) Poikilocytosis (manual Anisocytosis (manual) Target Cells APTT 55 H D D-Dimer, Quantitative pO2 VBG pH VBG pCO2 VBG HCO3 VBG Total CO2 VBG O2 Sat (Calc) VBG Base Excess VBG Potassium Glucose Lactate Sodium Potassium Chloride Carbon Dioxide Anion Gap BUN Creatinine Est GFR ( Amer) Est GFR (Non-Af Amer) POC Glucose (mg/dL) Random Glucose Serum Osmolality Calcium Phosphorus Magnesium Total Bilirubin AST ALT Alkaline Phosphatase Total Creatine Kinase CK-MB (Mass) Troponin I NT-Pro-B Natriuret Pep Total Protein Albumin Globulin Albumin/Globulin Ratio Triglycerides Cholesterol LDL Cholesterol Direct HDL Cholesterol Procalcitonin Venous Blood Potassium Urine Color Urine Clarity Urine pH Ur Specific [place] Urine Protein Urine Glucose (UA) Urine Ketones Urine Blood Urine Nitrate Urine Bilirubin Urine Urobilinogen Ur Leukocyte Esterase Urine WBC (Auto) Urine RBC (Auto) Ur Squamous Epith Cells Amorphous Sediment Urine Bacteria Urine Osmolality Ur Random Sodium Random Vancomycin 8.4 Influenza Typ A,B (EIA) 05/28/18 11:22 WBC RBC Hgb Hct MCV MCH MCHC RDW Plt Count MPV Neut % (Auto) Lymph % (Auto) [place] % (Auto) Eos % (Auto) Baso % (Auto) Neut # (Auto) Lymph # (Auto) [place] # (Auto) Eos # (Auto) Baso # (Auto) Neutrophils % (Manual) Band Neutrophils % Lymphocytes % (Manual) Monocytes % (Manual) Metamyelocytes % Nucleated RBC % Toxic Granulation Platelet Estimate Large Platelets RBC Morphology Hypochromasia (manual) Poikilocytosis (manual Anisocytosis (manual) Target Cells APTT D-Dimer, Quantitative pO2 VBG pH VBG pCO2 VBG HCO3 VBG Total CO2 VBG O2 Sat (Calc) VBG Base Excess VBG Potassium Glucose Lactate Sodium Potassium Chloride Carbon Dioxide Anion Gap BUN Creatinine Est GFR ( Amer) Est GFR (Non-Af Amer) POC Glucose (mg/dL) 236 H Random Glucose Serum Osmolality Calcium Phosphorus Magnesium Total Bilirubin AST ALT Alkaline Phosphatase Total Creatine Kinase CK-MB (Mass) Troponin I NT-Pro-B Natriuret Pep Total Protein Albumin Globulin Albumin/Globulin Ratio Triglycerides Cholesterol LDL Cholesterol Direct HDL Cholesterol Procalcitonin Venous Blood Potassium Urine Color Urine Clarity Urine pH Ur Specific [place] Urine Protein Urine Glucose (UA) Urine Ketones Urine Blood Urine Nitrate Urine Bilirubin Urine Urobilinogen Ur Leukocyte Esterase Urine WBC (Auto) Urine RBC (Auto) Ur Squamous Epith Cells Amorphous Sediment Urine Bacteria Urine Osmolality Ur Random Sodium Random Vancomycin Influenza Typ A,B (EIA)
--- NOTE | 2018-05-28 16:47 | CP.PCM.CON ---
History of Present Illness - History of Present Illness History of Present Illness: 48 yo male with h/o NICM/dilated CM; s/p BiV AICD; angiographically normal coronaries on cath 2017; HTN; T2D; presents with several days of malaise, loss of appetite, unsteady gait, generalized weakness. Denies subjective fever, chest pain, dyspnea, orthopnea, syncope, diarrhea or abdominal pain. This cardiology consult called for elevated troponin. Labs reveal EL Review of Systems - Review of Systems Review of Systems: allothers are negative except HPI Past Patient History - Infectious Disease Hx of Infectious Diseases: None - Tetanus Immunizations Tetanus Immunization: Unknown - Past Medical History & Family History Past Medical History?: Yes - Past Social History Smoking Status: Never Smoked - CARDIAC Hx Hypercholesterolemia: Yes Hx Hypertension: Yes Hx Pacemaker: Yes (Lt. sub clavian) - PULMONARY Hx Respiratory Disorders: No - NEUROLOGICAL Hx Neurological Disorder: No - HEENT Hx HEENT Problems: No Hx Cataracts: Yes - RENAL Hx Chronic Kidney Disease: No - ENDOCRINE/METABOLIC Hx Endocrine Disorders: Yes Hx Diabetes Mellitus Type 1: Yes - HEMATOLOGICAL/ONCOLOGICAL Hx Blood Disorders: No - INTEGUMENTARY Hx Dermatological Problems: No - MUSCULOSKELETAL/RHEUMATOLOGICAL Hx Musculoskeletal Disorders: No Hx Falls: No - GASTROINTESTINAL Hx Gastrointestinal Disorders: No - GENITOURINARY/GYNECOLOGICAL Hx Genitourinary Disorders: No - PSYCHIATRIC Hx Substance Use: No - SURGICAL HISTORY Hx Surgeries: Yes Other/Comment: Right 3 digits amputation foot - ANESTHESIA Hx Anesthesia: Yes Hx Anesthesia Reactions: No Hx Malignant Hyperthermia: No Meds Allergies/Adverse Reactions: Allergies Allergy/AdvReac Type Severity Reaction Status Date / Time No Known Allergies Allergy Verified 05/27/18 12:15 - Medications Medications: Current Medications Aspirin (Aspirin Chewable) 81 mg PO DAILY [facility] Last Admin: 05/28/18 09:33 Dose: 81 mg Carvedilol (Coreg) 12.5 mg PO BID [facility] Last Admin: 05/28/18 09:34 Dose: 12.5 mg Dextrose (Dextrose 50% Inj) 0 ml IV STAT PRN; Protocol PRN Reason: Hypoglycemia Protocol Dextrose (Glutose 15) 0 gm PO ONCE PRN; Protocol PRN Reason: Hypoglycemia Protocol Folic Acid (Folic Acid) 1 mg PO DAILY [facility] Last Admin: 05/28/18 09:33 Dose: 1 mg Glucagon (Glucagen Diagnostic Kit) 0 mg IM STAT PRN; Protocol PRN Reason: Hypoglycemia Protocol Azithromycin 500 mg/ Sodium (Chloride) 250 mls @ 250 mls/hr IVPB DAILY [facility]; Protocol Last Admin: 05/28/18 09:36 Dose: 250 mls/hr Dextrose (Dextrose 5% In Water 1000 Ml) 1,000 mls @ 0 mls/hr IV .Q0M PRN; Protocol PRN Reason: Hypoglycemia Protocol Cefepime HCl (Maxipime Iv 2 Gm Premix) 2 gm in 100 mls @ 200 mls/hr IVPB Q12H [facility]; Protocol Stop: 06/01/18 18:31 Last Admin: 05/28/18 06:22 Dose: 200 mls/hr Vancomycin/Sodium Chloride (Vancomycin 1 Gm/Ns 200 Ml) 1 gm in 200 mls @ 166.7 mls/hr IVPB Q24H [facility]; Protocol Stop: 06/03/18 12:46 Influenza Virus Vaccine (Fluzone Quad [id number]) 60 mcg IM .ONCE ONE Stop: 05/29/18 10:01 Insulin Aspart (Novolog) 0 unit SC ACHS [facility]; Protocol Last Admin: 05/28/18 16:37 Dose: 2 units Multivitamins (Hexavitamin) 1 tab PO DAILY [facility] Last Admin: 05/28/18 09:33 Dose: 1 tab Rosuvastatin Calcium (Crestor) 5 mg PO HS [facility] Last Admin: 05/27/18 21:21 Dose: 5 mg Thiamine HCl (Vitamin B1 Tab) 50 mg PO DAILY [facility] Last Admin: 05/27/18 19:38 Dose: 50 mg Physical Exam - Constitutional Appears: Well - Head Exam Head Exam: ATRAUMATIC, NORMOCEPHALIC - Eye Exam Pupil Exam: PERRL - Respiratory Exam Respiratory Exam: Rales, NORMAL BREATHING PATTERN - Cardiovascular Exam Cardiovascular Exam: REGULAR RHYTHM, RRR, +S1, +S2. absent: JVD - GI/Abdominal Exam GI & Abdominal Exam: Soft. absent: Tenderness - Extremities Exam Extremities exam: Negative for: calf tenderness - Neurological Exam Neurological exam: Alert, CN II-XII Intact, Oriented x3 - Psychiatric Exam Psychiatric exam: Normal Affect, Normal Mood - Skin Skin Exam: Normal Color Results - Vital Signs Recent Vital Signs: Last Vital Signs Temp 97.6 F 05/28/18 09:06 Pulse 73 05/28/18 14:40 Resp 15 05/28/18 14:40 BP 113/72 05/28/18 14:12 Pulse Ox 100 05/28/18 14:40 - Labs Result Diagrams: 05/28/18 08:45 05/28/18 08:32 Labs: Laboratory Results - last 24 hr 05/27/18 05/27/18 05/27/18 16:00 18:02 19:03 WBC RBC Hgb Hct MCV MCH MCHC RDW Plt Count MPV Neut % (Auto) Lymph % (Auto) [place] % (Auto) Eos % (Auto) Baso % (Auto) Neut # (Auto) Lymph # (Auto) [place] # (Auto) Eos # (Auto) Baso # (Auto) Neutrophils % (Manual) Band Neutrophils % Lymphocytes % (Manual) Monocytes % (Manual) Metamyelocytes % Nucleated RBC % Toxic Granulation Platelet Estimate Large Platelets RBC Morphology Hypochromasia (manual) Poikilocytosis (manual Anisocytosis (manual) Target Cells APTT D-Dimer, Quantitative pO2 VBG pH VBG pCO2 VBG HCO3 VBG Total CO2 VBG O2 Sat (Calc) VBG Base Excess VBG Potassium Sodium Chloride Glucose Lactate Potassium Carbon Dioxide Anion Gap BUN Creatinine Est GFR ( Amer) Est GFR (Non-Af Amer) POC Glucose (mg/dL) Random Glucose Calcium Phosphorus Magnesium Total Bilirubin AST ALT Alkaline Phosphatase Total Creatine Kinase 192 H CK-MB (Mass) 0.71 Troponin I 0.2330 H* Total Protein Albumin Globulin Albumin/Globulin Ratio Triglycerides Cholesterol LDL Cholesterol Direct HDL Cholesterol Procalcitonin 27.53 H Venous Blood Potassium Random Vancomycin Influenza Typ A,B (EIA) Negative for flu a/b 05/27/18 05/27/18 05/27/18 19:03 19:03 19:05 WBC RBC Hgb Hct MCV MCH MCHC RDW Plt Count MPV Neut % (Auto) Lymph % (Auto) [place] % (Auto) Eos % (Auto) Baso % (Auto) Neut # (Auto) Lymph # (Auto) [place] # (Auto) Eos # (Auto) Baso # (Auto) Neutrophils % (Manual) Band Neutrophils % Lymphocytes % (Manual) Monocytes % (Manual) Metamyelocytes % Nucleated RBC % Toxic Granulation Platelet Estimate Large Platelets RBC Morphology Hypochromasia (manual) Poikilocytosis (manual Anisocytosis (manual) Target Cells APTT 30 D-Dimer, Quantitative 1468 H pO2 22 L VBG pH 7.38 VBG pCO2 44 VBG HCO3 23.6 VBG Total CO2 27.4 VBG O2 Sat (Calc) 38.5 L VBG Base Excess 0.5 VBG Potassium 3.4 L Sodium 128.0 L Chloride 94.0 L Glucose 176 H Lactate 1.6 Potassium Carbon Dioxide Anion Gap BUN Creatinine Est GFR ( Amer) Est GFR (Non-Af Amer) POC Glucose (mg/dL) Random Glucose Calcium Phosphorus Magnesium Total Bilirubin AST ALT Alkaline Phosphatase Total Creatine Kinase CK-MB (Mass) Troponin I Total Protein Albumin Globulin Albumin/Globulin Ratio Triglycerides Cholesterol LDL Cholesterol Direct HDL Cholesterol Procalcitonin Venous Blood Potassium 3.4 L Random Vancomycin Influenza Typ A,B (EIA) 05/27/18 05/27/18 05/27/18 20:11 21:09 21:11 WBC 10.1 RBC 3.60 L Hgb 10.9 L Hct 31.9 L MCV 88.8 MCH 30.4 MCHC 34.2 RDW 13.0 Plt Count 76 L MPV 10.2 Neut % (Auto) 89.3 H Lymph % (Auto) 5.4 L [place] % (Auto) 4.5 Eos % (Auto) 0.4 Baso % (Auto) 0.4 Neut # (Auto) 9.0 H Lymph # (Auto) 0.5 L [place] # (Auto) 0.5 Eos # (Auto) 0.0 Baso # (Auto) 0.0 Neutrophils % (Manual) 58 Band Neutrophils % 34 H* Lymphocytes % (Manual) 6 L Monocytes % (Manual) 2 Metamyelocytes % Nucleated RBC % 1 H Toxic Granulation Platelet Estimate Decreased L Large Platelets RBC Morphology Hypochromasia (manual) Slight Poikilocytosis (manual Slight Anisocytosis (manual) Slight Target Cells Slight APTT D-Dimer, Quantitative pO2 VBG pH VBG pCO2 VBG HCO3 VBG Total CO2 VBG O2 Sat (Calc) VBG Base Excess VBG Potassium Sodium 126 L Chloride 92 L Glucose Lactate Potassium 3.5 L Carbon Dioxide 22 Anion Gap 16 BUN 43 H Creatinine 2.1 H Est GFR ( Amer) 41 Est GFR (Non-Af Amer) 34 POC Glucose (mg/dL) Random Glucose 160 H Calcium 6.9 L Phosphorus Magnesium Total Bilirubin 1.0 AST 78 H ALT 78 H Alkaline Phosphatase 78 Total Creatine Kinase CK-MB (Mass) Troponin I Total Protein 6.0 L Albumin 2.8 L Globulin 3.2 Albumin/Globulin Ratio 0.9 L Triglycerides Cholesterol LDL Cholesterol Direct HDL Cholesterol Procalcitonin Venous Blood Potassium Random Vancomycin 14.7 Influenza Typ A,B (EIA) 05/27/18 05/28/18 05/28/18 21:19 02:00 02:00 WBC RBC Hgb Hct MCV MCH MCHC RDW Plt Count MPV Neut % (Auto) Lymph % (Auto) [place] % (Auto) Eos % (Auto) Baso % (Auto) Neut # (Auto) Lymph # (Auto) [place] # (Auto) Eos # (Auto) Baso # (Auto) Neutrophils % (Manual) Band Neutrophils % Lymphocytes % (Manual) Monocytes % (Manual) Metamyelocytes % Nucleated RBC % Toxic Granulation Platelet Estimate Large Platelets RBC Morphology Hypochromasia (manual) Poikilocytosis (manual Anisocytosis (manual) Target Cells APTT 42 H D D-Dimer, Quantitative pO2 VBG pH VBG pCO2 VBG HCO3 VBG Total CO2 VBG O2 Sat (Calc) VBG Base Excess VBG Potassium Sodium Chloride Glucose Lactate Potassium Carbon Dioxide Anion Gap BUN Creatinine Est GFR ( Amer) Est GFR (Non-Af Amer) POC Glucose (mg/dL) 170 H Random Glucose Calcium Phosphorus Magnesium Total Bilirubin AST ALT Alkaline Phosphatase Total Creatine Kinase 156 CK-MB (Mass) 1.07 Troponin I 0.2220 H* Total Protein Albumin Globulin Albumin/Globulin Ratio Triglycerides Cholesterol LDL Cholesterol Direct HDL Cholesterol Procalcitonin Venous Blood Potassium Random Vancomycin Influenza Typ A,B (EIA) 05/28/18 05/28/18 05/28/18 04:00 07:57 08:32 WBC 8.8 RBC 4.09 L Hgb 12.5 Hct 36.5 MCV 89.2 MCH 30.6 MCHC 34.3 RDW 13.3 Plt Count 77 L MPV 10.5 Neut % (Auto) 88.5 H Lymph % (Auto) 6.3 L [place] % (Auto) 4.3 Eos % (Auto) 0.3 Baso % (Auto) 0.6 Neut # (Auto) 7.8 H Lymph # (Auto) 0.6 L [place] # (Auto) 0.4 Eos # (Auto) 0.0 Baso # (Auto) 0.1 Neutrophils % (Manual) 67 Band Neutrophils % 27 H* Lymphocytes % (Manual) 4 L Monocytes % (Manual) 2 Metamyelocytes % Nucleated RBC % Toxic Granulation Present Platelet Estimate Decreased L Large Platelets Present RBC Morphology Normal Hypochromasia (manual) Poikilocytosis (manual Anisocytosis (manual) Target Cells APTT D-Dimer, Quantitative pO2 VBG pH VBG pCO2 VBG HCO3 VBG Total CO2 VBG O2 Sat (Calc) VBG Base Excess VBG Potassium Sodium 128 L Chloride 93 L Glucose Lactate Potassium 4.2 Carbon Dioxide 20 L Anion Gap 20 BUN 56 H Creatinine 3.2 H Est GFR ( Amer) 25 Est GFR (Non-Af Amer) 21 POC Glucose (mg/dL) 196 H Random Glucose 214 H Calcium 7.1 L Phosphorus 4.7 H Magnesium 2.3 Total Bilirubin 0.7 AST 78 H ALT 93 H Alkaline Phosphatase 78 Total Creatine Kinase CK-MB (Mass) Troponin I Total Protein 6.4 Albumin 2.9 L Globulin 3.5 Albumin/Globulin Ratio 0.8 L Triglycerides 320 H D Cholesterol 108 LDL Cholesterol Direct < 30 HDL Cholesterol 14 L Procalcitonin Venous Blood Potassium Random Vancomycin Influenza Typ A,B (EIA) 05/28/18 05/28/18 05/28/18 08:32 08:45 10:58 WBC 8.5 RBC 4.14 L Hgb 12.7 Hct 37.1 MCV 89.6 MCH 30.7 MCHC 34.2 RDW 13.1 Plt Count 82 L MPV 10.4 Neut % (Auto) 89.5 H Lymph % (Auto) 6.4 L [place] % (Auto) 3.8 Eos % (Auto) 0.0 Baso % (Auto) 0.3 Neut # (Auto) 7.6 H Lymph # (Auto) 0.5 L [place] # (Auto) 0.3 Eos # (Auto) 0.0 Baso # (Auto) 0.0 Neutrophils % (Manual) 70 Band Neutrophils % 20 H* Lymphocytes % (Manual) 5 L Monocytes % (Manual) 4 Metamyelocytes % 1 H Nucleated RBC % Toxic Granulation Platelet Estimate Decreased L Large Platelets Present RBC Morphology Normal Hypochromasia (manual) Poikilocytosis (manual Anisocytosis (manual) Target Cells APTT 55 H D D-Dimer, Quantitative pO2 VBG pH VBG pCO2 VBG HCO3 VBG Total CO2 VBG O2 Sat (Calc) VBG Base Excess VBG Potassium Sodium Chloride Glucose Lactate Potassium Carbon Dioxide Anion Gap BUN Creatinine Est GFR ( Amer) Est GFR (Non-Af Amer) POC Glucose (mg/dL) Random Glucose Calcium Phosphorus Magnesium Total Bilirubin AST ALT Alkaline Phosphatase Total Creatine Kinase CK-MB (Mass) Troponin I Total Protein Albumin Globulin Albumin/Globulin Ratio Triglycerides Cholesterol LDL Cholesterol Direct HDL Cholesterol Procalcitonin Venous Blood Potassium Random Vancomycin 8.4 Influenza Typ A,B (EIA) 05/28/18 05/28/18 11:22 16:20 WBC RBC Hgb Hct MCV MCH MCHC RDW Plt Count MPV Neut % (Auto) Lymph % (Auto) [place] % (Auto) Eos % (Auto) Baso % (Auto) Neut # (Auto) Lymph # (Auto) [place] # (Auto) Eos # (Auto) Baso # (Auto) Neutrophils % (Manual) Band Neutrophils % Lymphocytes % (Manual) Monocytes % (Manual) Metamyelocytes % Nucleated RBC % Toxic Granulation Platelet Estimate Large Platelets RBC Morphology Hypochromasia (manual) Poikilocytosis (manual Anisocytosis (manual) Target Cells APTT D-Dimer, Quantitative pO2 VBG pH VBG pCO2 VBG HCO3 VBG Total CO2 VBG O2 Sat (Calc) VBG Base Excess VBG Potassium Sodium Chloride Glucose Lactate Potassium Carbon Dioxide Anion Gap BUN Creatinine Est GFR ( Amer) Est GFR (Non-Af Amer) POC Glucose (mg/dL) 236 H 236 H Random Glucose Calcium Phosphorus Magnesium Total Bilirubin AST ALT Alkaline Phosphatase Total Creatine Kinase CK-MB (Mass) Troponin I Total Protein Albumin Globulin Albumin/Globulin Ratio Triglycerides Cholesterol LDL Cholesterol Direct HDL Cholesterol Procalcitonin Venous Blood Potassium Random Vancomycin Influenza Typ A,B (EIA) - EKG Data EKG comments: my review: NSR, v-paced Assessment & Plan (1) Elevated troponin Assessment and Plan: Not an ACS or NSTEMI Likely in setting of CHF, EL Stop heaprin Status: Acute (2) Acute on chronic systolic (congestive) heart failure Assessment and Plan: Bilateral rales on exma Start furosemide 20 mg q 12h Daily weights Strict Is and Os Status: Acute (3) Dilated cardiomyopathy Assessment and Plan: NICM with normal coronaries in 2017 Cont with bblocker Not on ARB/MARLENE due to EL Status: Acute
--- NOTE | 2018-05-28 17:37 | CP.PCM.PN ---
Subjective - Date & Time of Evaluation Date of Evaluation: 05/28/18 Time of Evaluation: 17:20 - Subjective Subjective: Medical Attending Note: Patient seen and examined at bedside. Patient is accompanied by . patient allows permission to discuss his medical information in front of his . Assistance in translation provided by patient's son. patient reports he is feeling better. He is on the tiffany, noting for diarrhea. patient is sweaty on exam. Objective - Vital Signs/Intake and Output Vital Signs (last 24 hours): Temp Pulse Resp BP Pulse Ox 97.6 F 73 15 113/72 100 05/28/18 09:06 05/28/18 14:40 05/28/18 14:40 05/28/18 14:12 05/28/18 14:40 Intake and Output: 05/28/18 05/28/18 06:59 18:59 Intake Total 468.8 1490 Output Total 30 940 Balance 438.8 550 - Medications Medications: Current Medications Aspirin (Aspirin Chewable) 81 mg PO DAILY [facility] Last Admin: 05/28/18 09:33 Dose: 81 mg Carvedilol (Coreg) 12.5 mg PO BID [facility] Last Admin: 05/28/18 09:34 Dose: 12.5 mg Dextrose (Dextrose 50% Inj) 0 ml IV STAT PRN; Protocol PRN Reason: Hypoglycemia Protocol Dextrose (Glutose 15) 0 gm PO ONCE PRN; Protocol PRN Reason: Hypoglycemia Protocol Folic Acid (Folic Acid) 1 mg PO DAILY [facility] Last Admin: 05/28/18 09:33 Dose: 1 mg Glucagon (Glucagen Diagnostic Kit) 0 mg IM STAT PRN; Protocol PRN Reason: Hypoglycemia Protocol Azithromycin 500 mg/ Sodium (Chloride) 250 mls @ 250 mls/hr IVPB DAILY [facility]; Protocol Last Admin: 05/28/18 09:36 Dose: 250 mls/hr Dextrose (Dextrose 5% In Water 1000 Ml) 1,000 mls @ 0 mls/hr IV .Q0M PRN; Protocol PRN Reason: Hypoglycemia Protocol Cefepime HCl (Maxipime Iv 2 Gm Premix) 2 gm in 100 mls @ 200 mls/hr IVPB Q12H [facility]; Protocol Stop: 06/01/18 18:31 Last Admin: 05/28/18 06:22 Dose: 200 mls/hr Vancomycin/Sodium Chloride (Vancomycin 1 Gm/Ns 200 Ml) 1 gm in 200 mls @ 166.7 mls/hr IVPB Q24H [facility]; Protocol Stop: 06/03/18 12:46 Influenza Virus Vaccine (Fluzone Quad [id number]) 60 mcg IM .ONCE ONE Stop: 05/29/18 10:01 Insulin Aspart (Novolog) 0 unit SC ACHS [facility]; Protocol Last Admin: 05/28/18 16:37 Dose: 2 units Multivitamins (Hexavitamin) 1 tab PO DAILY [facility] Last Admin: 05/28/18 09:33 Dose: 1 tab Rosuvastatin Calcium (Crestor) 5 mg PO HS [facility] Last Admin: 05/27/18 21:21 Dose: 5 mg Thiamine HCl (Vitamin B1 Tab) 50 mg PO DAILY [facility] Last Admin: 05/28/18 16:53 Dose: 50 mg - Labs Labs: 05/28/18 08:45 05/28/18 08:32 APTT 55 SECONDS (21-34) H D 05/28/18 08:32 - Constitutional Appears: Non-toxic, No Acute Distress, Other (sweaty) - Head Exam Head Exam: NORMAL INSPECTION - Eye Exam Eye Exam: EOMI - ENT Exam ENT Exam: Mucous Membranes Moist - Respiratory Exam Respiratory Exam: Clear to Ausculation Bilateral, NORMAL BREATHING PATTERN. absent: Rales, Rhonchi, Wheezes - Cardiovascular Exam Cardiovascular Exam: REGULAR RHYTHM, +S1, +S2 - GI/Abdominal Exam GI & Abdominal Exam: Soft, Normal Bowel Sounds. absent: Distended, Firm, Guarding, Rigid, Tenderness, Rebound - Extremities Exam Extremities Exam: absent: Pedal Edema, Tenderness - Neurological Exam Neurological Exam: Alert, Awake, Oriented x3 Neuro motor strength exam: Left Upper Extremity: 0, Right Upper Extremity: 0, Left Lower Extremity: 0, Right Lower Extremity: 0 - Skin Skin Exam: Diaphoretic, Warm Assessment and Plan (1) Sepsis Status: Acute (2) NSTEMI (non-ST elevated myocardial infarction) Status: Acute (3) EL (acute kidney injury) Status: Acute (4) Diabetic ulcer of left foot Status: Acute (5) Hypertension Status: Chronic (6) Systolic heart failure, chronic Status: Chronic (7) Uncontrolled diabetes mellitus Status: Chronic (8) Prophylactic measure Status: Acute Attending/Attestation - Attestation I have personally seen and examined this patient.: Yes I have fully participated in the care of the patient.: Yes I have reviewed all pertinent clinical information, including history, physical exam and plan: Yes Notes (Text): Assessment/Plan 1) Sepsis, source unknown Assessment/Plan * Admit to ICU and transferred out * Criteria: bandemia, fever source of fever: bacteremia * Blood culture (05/27/18): gram positive cocci X2 * Pending UA and Urine Culture * Pending Sputum culture * Infectious Disease (Dr. Parks on board) help appreciated * Lactic acid: 1.8--->1.6 * Repeat Chest xray PA and Lateral * Azithromycin 500mg IVPB daily (active since 05/28/18) * Maxipime 2gm IVPB Q12H (active since 05/27/18) * Vancomycin 1gm IVPB Q24H (active since 05/29/18) * Procalcitonin: 27.53 2) NSTEMI Assessment/Plan * Cardiology on consult * Heparin and plavix d/c * EKG: Ventricular-paced rhythm @ 120 bpm, no ST segment elevation noted * pt given ASA 325 in E * patient asymptomatic * pending official read echocardiogram * Aspirin 81mg PO daily * Coreg 12.5mg PO BID * Crestor 5mg POqHS 3) Hyponatremia Assessment/Plan * Serum osmolality: 278 * Urine osmolality: 438 * Urine sodium: 6 4) Chronic Kidney Disease Stage, Stage II Assessment/Plan * Nephrology on case-->help appreciated * BUN/Cr: 37/1.6; GFR: 56-->3.2 * Lasix as needed for diuresis 5) Chronic Systolic CHF Assessment/Plan * ECHO (03/22): LVEF is approximately 37%. LV is moderately dilated with mild to moderate concentric hypertrophy. Global hypokinesis of LV. Grade I diastolic dysfunction. Moderate bi-atrial dilatation. Mild TR, mmild pulmonary hypertension. * patient asymptomatic * decreased preload and afterload * f/u echocardiogram * Aspirin 81mg PO daily * Coreg 12.5mg PO BID * Crestor 5mg PO qHS 6) Hypercholesterolemia Assessment/Plan * Rosuvastatin 5 mg PO QHS * T, Chol: 108, LDL<30, HDL: 14 7) Thrombocytopenia Assessment/Plan * patient has history of alcohol use * Possible sign of sepsis 8) Elevated D-dimer Assessment/Plan * unable CT angio given renal function elevated 8) Hx of IDDM Assessment/Plan * ISS medium * hypoglycemia protocol * f/u HgbA1c * f/u lipid panel 9) Prophylactic measure * Chemical anticoagulation secondary thrombocytopenia Disposition: f/u repeat blood cultures; f/u echo. patient is currently on IV abx
--- NOTE | 2018-05-28 20:02 | CARD ---
APPROVED REPORT Date of service: 05/28/2018 EXAM: Two-dimensional and M-mode echocardiogram with Doppler and color Doppler. Other Information Quality : GoodRhythm : INDICATION Dyspnea Congestive Heart Failure RISK FACTORS Hypertension Diabetes 2D DIMENSIONS IVSd1.5 (0.7-1.1cm)LVDd5.9 (3.9-5.9cm) LVOT Diameter2.0 (1.8-2.4cm)PWd1.5 (0.7-1.1cm) LVDs5.2 (2.5-4.0cm)FS (%) 12.4 % LVEF (%)26.2 (>50%)LVEF (Barrientos's)35.15 % M-Mode DIMENSIONS Left Atrium (MM)4.64 (2.5-4.0cm)Aortic Root3.08 (2.2-3.7cm) Aortic Cusp Exc.1.69 (1.5-2.0cm) Mitral Valve MV E Qvmzyptz49.1cm/sMV A Etjtiara84.9cm/sE/A ratio1.2 TDI Lateral E' Peak V6.61cm/sMedial E' Peak V6.03cm/sE/Lateral E'12.6 E/Medial E'13.8 Pulmonary Valve PV Peak Ndtxhmlk76.3cm/sPV Peak Grad.2mmHg Tricuspid Valve TR Peak Gnefsxin678si/sTR Peak [id number] LEFT VENTRICLE The left ventricle is normal size. There is normal left ventricular wall thickness. The left ventricular function is normal. The left ventricular ejection fraction is markedly reduced , with diffuse hypokinesis. The septum is akinetic. No regional wall motion abnormalities noted. The left ventricular diastolic function is indetermiante. No left ventricle thrombus noted on this study. There is no ventricular septal defect visualized. There is no left ventricular aneurysm. There is no mass noted in the left ventricle. RIGHT VENTRICLE The right ventricle is normal size. There is normal right ventricular wall thickness. The right ventricular systolic function is normal. PPm wires are noted. ATRIA The left atrium size is normal. The right atrium size is normal. The interatrial septum is intact with no evidence for an atrial septal defect. AORTIC VALVE The aortic valve is normal in structure and function. No aortic regurgitation is present. There is no aortic valvular stenosis. There is no aortic valvular vegetation. MITRAL VALVE The mitral valve is normal in structure and function. There is no evidence of mitral valve prolapse. There is no mitral valve stenosis. There is no mitral valve regurgitation noted. TRICUSPID VALVE The tricuspid valve is normal in structure and function. There is no tricuspid valve regurgitation noted. There is no tricuspid valve prolapse or vegetation. There is no tricuspid valve stenosis. PULMONIC VALVE The pulmonary valve is normal in structure and function. There is no pulmonic valvular regurgitation. There is no pulmonic valvular stenosis. GREAT VESSELS The aortic root is normal in size. The ascending aorta is normal in size. The pulmonary artery is normal. The IVC is normal in size and collapses >50% with inspiration. PERICARDIAL EFFUSION The pericardium appears normal. There is no pleural effusion. <Conclusion> Severely reduced left ventricular systolic function, with septal akinesis. Normal Doppler.
[2018-05-29] MEDS: Cefepime IV 2 gm in Dextrose 2 GM/100 ML BAG IVPB SCH (05:55)
[2018-05-29 06:37] LABS: BASO # 0.1 K/uL (0.0-0.2); BASO % 0.5 % (0.0-2.0); EOS % 0.1 % (0.0-4.0); HEMOGLOBIN 11.4 g/dL (12.0-18.0); LYMPH # 0.7 K/uL (1.0-4.3); LYMPH % 6.4 % (20.0-40.0); MEAN CELL VOLUME 89.1 fL (80.0-94.0); MEAN CORPUSCULAR HEMOGLOBIN 30.2 pg (27.0-31.0); MEAN CORPUSCULAR HGB CONC 33.9 g/dL (33.0-37.0); MEAN PLATELET VOLUME 11.7 fL (7.2-11.7); MONO # 0.5 K/uL (0.0-0.8); MONO % 4.1 % (0.0-10.0); NEUT # 10.2 K/uL (1.8-7.0); NEUT % 88.9 % (50.0-75.0); PLATELET COUNT 80 K/uL (130-400); RBC 3.79 Mil/uL (4.40-5.90); RED CELL DISTRIBUTION WIDTH 13.9 % (11.5-14.5); WHITE BLOOD COUNT 11.4 K/uL (4.8-10.8)
[2018-05-29 06:49] LABS: ALB/GLOB RATIO 0.8 (1.0-2.1); ALBUMIN 2.7 g/dL (3.5-5.0); ALT/SGPT 73 U/L (21-72); AST/SGOT 38 U/L (17-59); BLOOD UREA NITROGEN 76 mg/dL (9-20); CALCIUM 6.9 mg/dl (8.6-10.4); GFR NON-AFRICAN AMERICAN 16; HDL CHOLESTEROL 12 mg/dL (30-70)
[2018-05-29 06:59] LABS: LDL CHOLESTEROL < 30 mg/dL (0-129)
[2018-05-29] MEDS: (Novolog) Insulin Aspart, Recombinant 100 u/ml 10 ml vial SC SCH ×4 (08:03→21:39)
--- NOTE | 2018-05-29 08:29 | RAD ---
Date of service: 05/29/2018 HISTORY: chf COMPARISON: 05/27/2018 FINDINGS: LUNGS: No active pulmonary disease. PLEURA: No significant pleural effusion identified, no pneumothorax apparent. CARDIOVASCULAR: No aortic atherosclerotic calcification present. Normal cardiac size. No congestive change. AICD noted. OSSEOUS STRUCTURES: No significant abnormalities. VISUALIZED UPPER ABDOMEN: Normal. OTHER FINDINGS: None. IMPRESSION: No active disease.
[2018-05-29] MEDS: Multiple Vitamins Tab PO SCH (09:41)
[2018-05-29] MEDS: Azithromycin 500 MG in Sodium Chloride 0.9% 250 ML IVPB SCH (09:44)
[2018-05-29 09:54] LABS: BANDS 11 % (0-2); LYMPHOCYTE 3 % (20-40); MONOCYTE 3 % (0-10); NEUTROPHIL 83 % (50-75); PLATELET ESTIMATE DECREASED (NORMAL); TOTAL CELLS COUNTED 100
[2018-05-29 09:55] LABS: LARGE PLATELETS PRESENT
[2018-05-29] MEDS ORDERED: Influenza Vaccine 60 MCG/0.5 ML SYR (3 yr & up) IM ONE (10:00)
[2018-05-29] MEDS ORDERED: Vancomycin 1 gm/NS 200 ml 1 GM/200 ML BAG IVPB SCH (12:45)
--- NOTE | 2018-05-29 12:55 | CP.PCM.PN ---
Subjective - Date & Time of Evaluation Date of Evaluation: 05/29/18 Time of Evaluation: 12:54 - Subjective Subjective: Seen and examined No chest pain or dyspnea Objective - Vital Signs/Intake and Output Vital Signs (last 24 hours): Temp Pulse Resp BP Pulse Ox 98.4 F 74 18 109/73 98 05/29/18 12:00 05/29/18 12:00 05/29/18 12:00 05/29/18 12:00 05/29/18 12:00 Intake and Output: 05/29/18 05/29/18 06:59 18:59 Intake Total 400 Output Total 300 Balance 100 - Medications Medications: Current Medications Aspirin (Aspirin Chewable) 81 mg PO DAILY [facility] Last Admin: 05/29/18 09:41 Dose: 81 mg Carvedilol (Coreg) 12.5 mg PO BID [facility] Last Admin: 05/29/18 09:41 Dose: 12.5 mg Dextrose (Dextrose 50% Inj) 0 ml IV STAT PRN; Protocol PRN Reason: Hypoglycemia Protocol Dextrose (Glutose 15) 0 gm PO ONCE PRN; Protocol PRN Reason: Hypoglycemia Protocol Folic Acid (Folic Acid) 1 mg PO DAILY [facility] Last Admin: 05/29/18 09:41 Dose: 1 mg Glucagon (Glucagen Diagnostic Kit) 0 mg IM STAT PRN; Protocol PRN Reason: Hypoglycemia Protocol Azithromycin 500 mg/ Sodium (Chloride) 250 mls @ 250 mls/hr IVPB DAILY [facility]; Protocol Last Admin: 05/29/18 09:44 Dose: 250 mls/hr Dextrose (Dextrose 5% In Water 1000 Ml) 1,000 mls @ 0 mls/hr IV .Q0M PRN; Protocol PRN Reason: Hypoglycemia Protocol Cefepime HCl (Maxipime Iv 2 Gm Premix) 2 gm in 100 mls @ 200 mls/hr IVPB Q12H [facility]; Protocol Stop: 06/01/18 18:31 Last Admin: 05/29/18 05:55 Dose: 200 mls/hr Vancomycin/Sodium Chloride (Vancomycin 1 Gm/Ns 200 Ml) 1 gm in 200 mls @ 166.7 mls/hr IVPB Q24H [facility]; Protocol Stop: 06/03/18 12:46 Last Admin: 05/29/18 12:11 Dose: 166.7 mls/hr Insulin Aspart (Novolog) 0 unit SC ACHS [facility]; Protocol Last Admin: 05/29/18 12:12 Dose: 2 units Multivitamins (Hexavitamin) 1 tab PO DAILY [facility] Last Admin: 05/29/18 09:41 Dose: 1 tab Rosuvastatin Calcium (Crestor) 5 mg PO HS [facility] Last Admin: 05/28/18 21:19 Dose: 5 mg Thiamine HCl (Vitamin B1 Tab) 50 mg PO DAILY [facility] Last Admin: 05/29/18 09:41 Dose: 50 mg - Labs Labs: 05/29/18 06:28 05/29/18 06:20 APTT 55 SECONDS (21-34) H D 05/28/18 08:32 - Head Exam Head Exam: ATRAUMATIC - Eye Exam Pupil Exam: PERRL - Neck Exam Neck Exam: Full ROM - Respiratory Exam Respiratory Exam: Rales - Cardiovascular Exam Cardiovascular Exam: REGULAR RHYTHM, +S1, +S2. absent: JVD - GI/Abdominal Exam GI & Abdominal Exam: Soft. absent: Tenderness - Extremities Exam Extremities Exam: absent: Pedal Edema - Neurological Exam Neurological Exam: CN II-XII Intact, Oriented x3 Assessment and Plan (1) Elevated troponin Assessment & Plan: Not an ACS or NSTEMI Likely in setting of CHF, EL Heparin/plavix stopped Status: Acute (2) Acute on chronic systolic (congestive) heart failure Assessment & Plan: Start furosemide 20 mg q 12h Daily weights Strict Is and Os Status: Acute (3) Dilated cardiomyopathy Assessment & Plan: NICM with normal coronaries in 2017 Cont with bblocker Not on ARB/MARLENE due to EL Status: Acute
--- NOTE | 2018-05-29 13:59 | CP.PCM.PN ---
Subjective - Date & Time of Evaluation Date of Evaluation: 05/29/18 Time of Evaluation: 08:00 - Subjective Subjective: 48 year old male with past medical history including uncontrolled IDDM, hx of diabetic foot ulcer, L ventricular dysfunction s/p biventricular AICD placement who presents to the ED for dizziness, general malaise, states he has been "feeling unwell" since Wednesday. Found to have NSTEMI and sepsis Hypotension resolved with IV Fluids Empiric IV antibiotics started Objective - Vital Signs/Intake and Output Vital Signs (last 24 hours): Temp Pulse Resp BP Pulse Ox 98.4 F 79 18 122/82 97 05/29/18 12:00 05/29/18 13:00 05/29/18 13:00 05/29/18 13:37 05/29/18 13:00 Intake and Output: 05/29/18 05/29/18 06:59 18:59 Intake Total 400 Output Total 300 Balance 100 - Medications Medications: Current Medications Aspirin (Aspirin Chewable) 81 mg PO DAILY [facility] Last Admin: 05/29/18 09:41 Dose: 81 mg Carvedilol (Coreg) 12.5 mg PO BID [facility] Last Admin: 05/29/18 09:41 Dose: 12.5 mg Dextrose (Dextrose 50% Inj) 0 ml IV STAT PRN; Protocol PRN Reason: Hypoglycemia Protocol Dextrose (Glutose 15) 0 gm PO ONCE PRN; Protocol PRN Reason: Hypoglycemia Protocol Folic Acid (Folic Acid) 1 mg PO DAILY [facility] Last Admin: 05/29/18 09:41 Dose: 1 mg Furosemide (Lasix) 40 mg IVP DAILY [facility] Last Admin: 05/29/18 13:37 Dose: 40 mg Glucagon (Glucagen Diagnostic Kit) 0 mg IM STAT PRN; Protocol PRN Reason: Hypoglycemia Protocol Azithromycin 500 mg/ Sodium (Chloride) 250 mls @ 250 mls/hr IVPB DAILY [facility]; Protocol Last Admin: 05/29/18 09:44 Dose: 250 mls/hr Dextrose (Dextrose 5% In Water 1000 Ml) 1,000 mls @ 0 mls/hr IV .Q0M PRN; Protocol PRN Reason: Hypoglycemia Protocol Cefepime HCl (Maxipime Iv 2 Gm Premix) 2 gm in 100 mls @ 200 mls/hr IVPB Q12H [facility]; Protocol Stop: 06/01/18 18:31 Last Admin: 05/29/18 05:55 Dose: 200 mls/hr Vancomycin/Sodium Chloride (Vancomycin 1 Gm/Ns 200 Ml) 1 gm in 200 mls @ 166.7 mls/hr IVPB Q24H [facility]; Protocol Stop: 06/03/18 12:46 Last Admin: 05/29/18 12:11 Dose: 166.7 mls/hr Insulin Aspart (Novolog) 0 unit SC ACHS [facility]; Protocol Last Admin: 05/29/18 12:12 Dose: 2 units Multivitamins (Hexavitamin) 1 tab PO DAILY [facility] Last Admin: 05/29/18 09:41 Dose: 1 tab Rosuvastatin Calcium (Crestor) 5 mg PO HS [facility] Last Admin: 05/28/18 21:19 Dose: 5 mg Thiamine HCl (Vitamin B1 Tab) 50 mg PO DAILY [facility] Last Admin: 05/29/18 09:41 Dose: 50 mg - Labs Labs: 05/29/18 06:28 05/29/18 06:20 APTT 55 SECONDS (21-34) H D 05/28/18 08:32 - Constitutional Appears: Non-toxic, Chronically Ill - Head Exam Head Exam: NORMOCEPHALIC - Eye Exam Eye Exam: absent: Scleral icterus - ENT Exam ENT Exam: Mucous Membranes Dry - Neck Exam Neck Exam: absent: Lymphadenopathy - Respiratory Exam Respiratory Exam: Decreased Breath Sounds - Cardiovascular Exam Cardiovascular Exam: REGULAR RHYTHM - GI/Abdominal Exam GI & Abdominal Exam: Distended, Soft - Rectal Exam Rectal Exam: Deferred - Exam Exam: NORMAL INSPECTION - Extremities Exam Extremities Exam: absent: Pedal Edema Additional comments: missing digits noted - right foot deformity left foot with dusky / discolored digit left foot no purulence pulses diminished - Back Exam Back Exam: absent: CVA tenderness (L), CVA tenderness (R) - Neurological Exam Neurological Exam: Alert, Awake, Oriented x3 - Psychiatric Exam Psychiatric exam: Depressed - Skin Skin Exam: Dry Assessment and Plan (1) Bacteremia Status: Acute (2) Acute on chronic systolic (congestive) heart failure Status: Acute (3) CHF exacerbation Status: Acute (4) Dilated cardiomyopathy Status: Acute (5) NSTEMI (non-ST elevated myocardial infarction) Status: Acute (6) Sepsis Status: Acute - Assessment and Plan (Free Text) Assessment: bacteremia persists r/o endocarditis r/o OM foot recc: podiatry eval, bone scan to r/o OM , arterial dopplers, vascular eval cont iv antibiotics
--- NOTE | 2018-05-29 14:09 | CP.PCM.PCO ---
Physician Communication Note - Physician Communication Note Physician Communication Note: Marisol held On zosyn Bacteremia persists
[2018-05-29] MEDS: Piperacillin/Tazobact 2.25 GM in Sodium Chloride 100 ML IVPB SCH ×2 (15:00→21:57)
--- NOTE | 2018-05-29 18:19 | CP.PCM.PN ---
Subjective - Date & Time of Evaluation Date of Evaluation: 05/29/18 Time of Evaluation: 18:10 - Subjective Subjective: Medical Attending Note: [employer] Machine: Rishabh (Albanian) Patient seen, examined at bedside accompanied by his . Patient reports he f eels tired. Patient reports he is feeling unwell and nauseous and does not have an appetite. Patient denies abdominal pain, denies nausea, denies vomitting, reports he is having bowel movements. Patient is noting right eye irritation and redness starting . Patient reports he has been diagnosed with cataracts earlier this year I spoke with cardiology, nonischemic cardiomyopathy, likely troponin secondary to sepsis. I spoke with ID, recommending for limited WBC scan to check for osteomyelitis. Objective - Vital Signs/Intake and Output Vital Signs (last 24 hours): Temp Pulse Resp BP Pulse Ox 98.4 F 81 20 115/66 96 05/29/18 16:00 05/29/18 17:00 05/29/18 17:00 05/29/18 17:22 05/29/18 17:00 Intake and Output: 05/29/18 05/29/18 06:59 18:59 Intake Total 400 Output Total 300 Balance 100 - Medications Medications: Current Medications Aspirin (Aspirin Chewable) 81 mg PO DAILY [facility] Last Admin: 05/29/18 09:41 Dose: 81 mg Carvedilol (Coreg) 12.5 mg PO BID [facility] Last Admin: 05/29/18 17:22 Dose: 12.5 mg Dextrose (Dextrose 50% Inj) 0 ml IV STAT PRN; Protocol PRN Reason: Hypoglycemia Protocol Dextrose (Glutose 15) 0 gm PO ONCE PRN; Protocol PRN Reason: Hypoglycemia Protocol Folic Acid (Folic Acid) 1 mg PO DAILY [facility] Last Admin: 05/29/18 09:41 Dose: 1 mg Furosemide (Lasix) 40 mg IVP DAILY [facility] Last Admin: 05/29/18 13:37 Dose: 40 mg Glucagon (Glucagen Diagnostic Kit) 0 mg IM STAT PRN; Protocol PRN Reason: Hypoglycemia Protocol Dextrose (Dextrose 5% In Water 1000 Ml) 1,000 mls @ 0 mls/hr IV .Q0M PRN; Protocol PRN Reason: Hypoglycemia Protocol Piperacillin Sod/Tazobactam (Sod 2.25 gm/ Sodium Chloride) 100 mls @ 200 mls/hr IVPB Q8H [facility]; Protocol Last Admin: 05/29/18 15:00 Dose: 200 mls/hr Insulin Aspart (Novolog) 0 unit SC ACHS [facility]; Protocol Last Admin: 05/29/18 17:21 Dose: 1 units Multivitamins (Hexavitamin) 1 tab PO DAILY [facility] Last Admin: 05/29/18 09:41 Dose: 1 tab Ondansetron HCl (Zofran Inj) 4 mg IVP Q6H PRN PRN Reason: Nausea/Vomiting Rosuvastatin Calcium (Crestor) 5 mg PO HS [facility] Last Admin: 05/28/18 21:19 Dose: 5 mg Thiamine HCl (Vitamin B1 Tab) 50 mg PO DAILY [facility] Last Admin: 05/29/18 09:41 Dose: 50 mg - Labs Labs: 05/29/18 06:28 05/29/18 06:20 APTT 55 SECONDS (21-34) H D 05/28/18 08:32 - Constitutional Appears: Non-toxic, Unkempt, Chronically Ill - Head Exam Head Exam: NORMAL INSPECTION - Eye Exam Eye Exam: EOMI - ENT Exam ENT Exam: Mucous Membranes Moist - Respiratory Exam Respiratory Exam: Clear to Ausculation Bilateral, NORMAL BREATHING PATTERN. absent: Rales, Rhonchi, Wheezes - Cardiovascular Exam Cardiovascular Exam: REGULAR RHYTHM, +S1, +S2 - GI/Abdominal Exam GI & Abdominal Exam: Distended, Soft, Normal Bowel Sounds. absent: Guarding, Rigid, Tenderness, Rebound - Extremities Exam Extremities Exam: absent: Pedal Edema, Tenderness - Back Exam Back Exam: absent: CVA tenderness (L), CVA tenderness (R) - Neurological Exam Neurological Exam: Alert, Awake, Oriented x3 - Psychiatric Exam Psychiatric exam: Normal Affect, Normal Mood - Skin Skin Exam: Dry, Normal Color, Warm Assessment and Plan (1) Sepsis Status: Acute (2) EL (acute kidney injury) Status: Acute (3) Diabetic ulcer of left foot Status: Acute (4) Hypertension Status: Chronic (5) Systolic heart failure, chronic Status: Chronic (6) Uncontrolled diabetes mellitus Status: Chronic (7) Non-ischemic cardiomyopathy Status: Acute (8) Conjunctivitis Status: Acute (9) Osteomyelitis Status: Acute (10) Bacteremia Status: Acute (11) Prophylactic measure Status: Acute Attending/Attestation - Attestation I have personally seen and examined this patient.: Yes I have fully participated in the care of the patient.: Yes I have reviewed all pertinent clinical information, including history, physical exam and plan: Yes Notes (Text): 1) Sepsis, source unknown Possible osteomyelitis Gram positive Bacteremia Assessment/Plan * Admit to ICU and transferred out 05/28/18 * Criteria: bandemia, fever source of fever: bacteremia * Will need to exclude osteomyelitis over lower extremity * He has had prior hospitalizations for osteomyelitis * Patient ordered for limited Certec WBC scan to rule osteomyelitis; we cannot MRI him he has a pacemaker * Blood culture (05/27/18): gram positive cocci X2 * Blood culture (05/28/18): gram positive cocci X2 * Urine culture (05/27/18): no growth * Stool culture (05/27/18); normal oral chyna * MRSA (05/27/18): not detected * Strep Throat Culure: normal; negative Strep A * Blood culture (05/28/18): gram positive cocci X2 * Chest xray (05/29/18): no active disease * Infectious Disease (Dr. Parks on board) help appreciated * Recommended for Ceretec scan, vascular eval, arterial duplex * Lactic acid: 1.8--->1.6 * Procalcitonin: 27.53 * Zosyn 2.25 IVPB Q8H (active 05/29/18) * Vancomycin d/c by ID given rise in creatinine * Florastor 250mg PO BID * Ordered for certec limited scan for rule out osteomyelitis * Order for foot xray by ID for possible osteomyelitis * Ordered for legionella, strep pneumonia, mycoplasma igm 2) Elevated Troponin History of Nonischemic cardiomyopathy History of AICD Assessment/Plan * Likely secondary to sepsis * Cardiology (Dr. Hernandez) manager infusion-->help appreciated * Heparin and plavix d/c 05/28/18 * EKG: Ventricular-paced rhythm @ 120 bpm, no ST segment elevation noted * pt given ASA 325 in ED * Echocardiogram (05/28/18): severely reduced left ventricular systolic function, with septal akinesis, normal doppler * Cardiac cath (10/15/16): normal coronary arteries * Aspirin 81mg PO daily * Coreg 12.5mg PO BID * Crestor 5mg POqHS * intake and output * Fluid restriction 3) Hyponatremia Assessment/Plan * Serum osmolality: 278 * Urine osmolality: 438 * Urine sodium: 6 * Nephrology on case 4) Chronic Kidney Disease Stage, Stage II Assessment/Plan * Nephrology on case-->help appreciated * BUN/Cr: 37/1.6; GFR: 56-->3.2 * Phoslo 667mg PO BID 5) Chronic Systolic CHF Assessment/Plan * ECHO (03/22): LVEF is approximately 37%. LV is moderately dilated with mild to moderate concentric hypertrophy. Global hypokinesis of LV. Grade I diastolic dysfunction. Moderate bi-atrial dilatation. Mild TR, mmild pulmonary hypertension. * Echocardiogram (05/28/18): severely reduced left ventricular systolic function, with septal akinesis, normal doppler * Aspirin 81mg PO daily * Coreg 12.5mg PO BID * Crestor 5mg PO qHS 6) Hypercholesterolemia Assessment/Plan * Rosuvastatin 5 mg PO QHS * T, Chol: 108, LDL<30, HDL: 14 7) Thrombocytopenia Assessment/Plan * patient has history of alcohol use * Possible sign of sepsis 8) Elevated D-dimer Assessment/Plan * unable CT angio given renal function elevated * Order for venous doppler 8) Hx of IDDM Assessment/Plan * ISS medium * hypoglycemia protocol * hgba1c: 7.8 * T, Chol: 108, LDL<30, HDL: 14 * Aspirin 81mg PO daily 9) Prophylactic measure * Chemical anticoagulation secondary thrombocytopenia * hold scds until dvt ruled out given elevated d-dimer; unable to ct angio given renal function Disposition: f/u repeat blood cultures (final), f/u foot xray and certec scan, pending arterial/venous and vascular surgery eval. podiatry, nephrology, infectious disease on board. patient is currently on IV abx
[2018-05-29 19:24] LABS: URINE BACTERIA RARE (<OCC); URINE BILIRUBIN NEGATIVE (NEGATIVE); URINE BLOOD 2+ (NEGATIVE); URINE CLARITY Hazy (Clear); URINE COLOR Yellow (YELLOW); URINE GLUCOSE (UA) NORMAL (Normal); URINE LEUKOCYTE ESTERASE NEG Leu/uL (Negative); URINE PROTEIN NEGATIVE (NEGATIVE); URINE UROBILINOGEN NORMAL mg/dL (0.2-1.0)
[2018-05-29] MEDS: Aritificial Tears (15ml) OU SCH (21:56)
[2018-05-29] MEDS: (Lantus) Insulin Glargine, Recombinant SC SCH (21:57)
[2018-05-29] MEDS: Saccharomyces Boulardi 250 mg Cap PO SCH (21:57)
[2018-05-29 22:11] LABS: MYCOPLASMA PNEUMONIAE IGM NEGATIVE (NEGATIVE)
--- NOTE | 2018-05-30 05:27 | CP.PCM.CON ---
History of Present Illness - History of Present Illness History of Present Illness: Vascular Surgery Consult Note for Dr. Ramirez Reason for consult PVD, possible osteo This is a 48M with a PMH of DM, foot ulcers, LV s/p biventricular AICD placement who presented with nonspecific feelings of illness such as dizziness, general malaise. Currently the patient complains of the same feelings. He denies any pain in his lower extremities or abdomen. When ased why he is in the hopsia he tells me because of his chest. He denies fevers, chills, headaches, changes in vision, chest pain, palpitations, shortness of breath, cough, abdominal pain, nausea/vomiting/diarrhea/constipation, dysuria, or changes in stool. In the ICU the patient continues to be bacteremic despite antibiotic therapy, without obvious source. PMH: Uncontrolled IDDM, history of diabetic foot ulcer, left ventricular dysfunction status post biventricular ICD PSH: R toe amputation x 3, appendicitis, left 5th toe partial amputation, AICD placement Allergies: NKDA Social: Denies vices Review of Systems - Review of Systems Review of Systems: 12 point review of symptoms conducted and negative. Past Patient History - Infectious Disease Hx of Infectious Diseases: None - Tetanus Immunizations Tetanus Immunization: Unknown - Past Medical History & Family History Past Medical History?: Yes - Past Social History Smoking Status: Never Smoked - CARDIAC Hx Hypercholesterolemia: Yes Hx Hypertension: Yes Hx Pacemaker: Yes (Lt. sub clavian) - PULMONARY Hx Respiratory Disorders: No - NEUROLOGICAL Hx Neurological Disorder: No - HEENT Hx HEENT Problems: No Hx Cataracts: Yes - RENAL Hx Chronic Kidney Disease: No - ENDOCRINE/METABOLIC Hx Endocrine Disorders: Yes Hx Diabetes Mellitus Type 1: Yes - HEMATOLOGICAL/ONCOLOGICAL Hx Blood Disorders: No - INTEGUMENTARY Hx Dermatological Problems: No - MUSCULOSKELETAL/RHEUMATOLOGICAL Hx Musculoskeletal Disorders: No Hx Falls: Yes - GASTROINTESTINAL Hx Gastrointestinal Disorders: No - GENITOURINARY/GYNECOLOGICAL Hx Genitourinary Disorders: No - PSYCHIATRIC Hx Substance Use: No - SURGICAL HISTORY Hx Surgeries: Yes Other/Comment: Right 3 digits amputation foot - ANESTHESIA Hx Anesthesia: Yes Hx Anesthesia Reactions: No Hx Malignant Hyperthermia: No Meds Allergies/Adverse Reactions: Allergies Allergy/AdvReac Type Severity Reaction Status Date / Time No Known Allergies Allergy Verified 05/27/18 12:15 - Medications Medications: Current Medications Artificial Tears (Artificial Tears) 1 ml OU BID [facility] Last Admin: 05/29/18 21:56 Dose: 1 ml Aspirin (Aspirin Chewable) 81 mg PO DAILY [facility] Last Admin: 05/29/18 09:41 Dose: 81 mg [facility] Carvedilol (Coreg) 12.5 mg PO BID [facility] Last Admin: 05/29/18 17:22 Dose: 12.5 mg Dextrose (Dextrose 50% Inj) 0 ml IV STAT PRN; Protocol PRN Reason: Hypoglycemia Protocol Dextrose (Glutose 15) 0 gm PO ONCE PRN; Protocol PRN Reason: Hypoglycemia Protocol Folic Acid (Folic Acid) 1 mg PO DAILY [facility] Last Admin: 05/29/18 09:41 Dose: 1 mg Furosemide (Lasix) 40 mg IVP DAILY [facility] Last Admin: 05/29/18 13:37 Dose: 40 mg Glucagon (Glucagen Diagnostic Kit) 0 mg IM STAT PRN; Protocol PRN Reason: Hypoglycemia Protocol Dextrose (Dextrose 5% In Water 1000 Ml) 1,000 mls @ 0 mls/hr IV .Q0M PRN; Protocol PRN Reason: Hypoglycemia Protocol Piperacillin Sod/Tazobactam (Sod 2.25 gm/ Sodium Chloride) 100 mls @ 200 mls/hr IVPB Q8H [facility]; Protocol Last Admin: 05/29/18 21:57 Dose: 200 mls/hr Insulin Aspart (Novolog) 0 unit SC [facility]; Protocol Last Admin: 05/29/18 21:39 Dose: Not Given Insulin Glargine (Lantus) 5 unit SC [facility] Last Admin: 05/29/18 21:57 Dose: 5 u Multivitamins (Hexavitamin) 1 tab PO DAILY [facility] Last Admin: 05/29/18 09:41 Dose: 1 tab Ondansetron HCl (Zofran Inj) 4 mg IVP Q6H PRN PRN Reason: Nausea/Vomiting Rosuvastatin Calcium (Crestor) 5 mg PO HS [facility] Last Admin: 05/29/18 21:58 Dose: 5 mg Saccharomyces Boulardii (Florastor) 250 mg PO BID [facility] Last Admin: 05/29/18 21:57 Dose: 250 mg Thiamine HCl (Vitamin B1 Tab) 100 mg PO DAILY [facility] Physical Exam - Constitutional Appears: Non-toxic, No Acute Distress - Head Exam Head Exam: ATRAUMATIC, NORMOCEPHALIC - Eye Exam Eye Exam: EOMI - ENT Exam ENT Exam: Mucous Membranes Moist - Respiratory Exam Respiratory Exam: NORMAL BREATHING PATTERN - Cardiovascular Exam Cardiovascular Exam: +S1, +S2 - GI/Abdominal Exam GI & Abdominal Exam: Soft. absent: Distended, Firm, Tenderness - Extremities Exam Additional comments: Bilateral lower extremities war. Bilateral dorsalis pedis palpable, bilateral posterior tibial dopplerablable with strong biphasic signal. Bilateral lower extremities non tender. Right sided lower extremity s/p digital ampuations. - Neurological Exam Neurological exam: Alert, Oriented x3 - Skin Skin Exam: Diaphoretic Results - Vital Signs Recent Vital Signs: Last Vital Signs Temp 98.3 F 05/29/18 23:50 Pulse 79 05/29/18 23:50 Resp 20 05/29/18 23:50 BP 122/65 05/29/18 23:50 Pulse Ox 95 05/29/18 23:50 - Labs Result Diagrams: 05/29/18 06:28 05/29/18 06:20 Labs: Laboratory Results - last 24 hr 05/28/18 05/29/18 05/29/18 08:32 04:00 06:20 WBC RBC Hgb Hct MCV MCH MCHC RDW Plt Count MPV Neut % (Auto) Lymph % (Auto) [place] % (Auto) Eos % (Auto) Baso % (Auto) Neut # (Auto) Lymph # (Auto) [place] # (Auto) Eos # (Auto) Baso # (Auto) Neutrophils % (Manual) Band Neutrophils % Lymphocytes % (Manual) Monocytes % (Manual) Platelet Estimate Large Platelets RBC Morphology Sodium Potassium Chloride Carbon Dioxide Anion Gap BUN Creatinine Est GFR ( Amer) Est GFR (Non-Af Amer) POC Glucose (mg/dL) Random Glucose Hemoglobin A1c 7.8 H 7.8 H Calcium Phosphorus Magnesium Total Bilirubin AST ALT Alkaline Phosphatase Total Protein Albumin Globulin Albumin/Globulin Ratio Triglycerides Cholesterol LDL Cholesterol Direct HDL Cholesterol Free T4 TSH 3rd Generation Urine Color Urine Clarity Urine pH Ur Specific [place] Urine Protein Urine Glucose (UA) Urine Ketones Urine Blood Urine Nitrate Urine Bilirubin Urine Urobilinogen Ur Leukocyte Esterase Urine WBC (Auto) Urine RBC (Auto) Urine Bacteria Random Vancomycin 16.0 Mycoplasma pneumon IgM 05/29/18 05/29/18 05/29/18 06:20 06:20 06:28 WBC 11.4 H RBC 3.79 L Hgb 11.4 L Hct 33.8 L MCV 89.1 MCH 30.2 MCHC 33.9 RDW 13.9 Plt Count 80 L MPV 11.7 Neut % (Auto) 88.9 H Lymph % (Auto) 6.4 L [place] % (Auto) 4.1 Eos % (Auto) 0.1 Baso % (Auto) 0.5 Neut # (Auto) 10.2 H Lymph # (Auto) 0.7 L [place] # (Auto) 0.5 Eos # (Auto) 0.0 Baso # (Auto) 0.1 Neutrophils % (Manual) 83 H Band Neutrophils % 11 H* Lymphocytes % (Manual) 3 L Monocytes % (Manual) 3 Platelet Estimate Decreased L Large Platelets Present RBC Morphology Normal Sodium 128 L Potassium 3.7 Chloride 95 L Carbon Dioxide 18 L Anion Gap 19 BUN 76 H Creatinine 3.9 H Est GFR ( Amer) 20 Est GFR (Non-Af Amer) 16 POC Glucose (mg/dL) Random Glucose 210 H Hemoglobin A1c Calcium 6.9 L Phosphorus 5.0 H Magnesium 2.4 H Total Bilirubin 0.7 AST 38 ALT 73 H D Alkaline Phosphatase 97 Total Protein 6.1 L Albumin 2.7 L Globulin 3.4 Albumin/Globulin Ratio 0.8 L Triglycerides 765 H D Cholesterol 112 LDL Cholesterol Direct < 30 HDL Cholesterol 12 L Free T4 1.50 TSH 3rd Generation 0.31 L Urine Color Urine Clarity Urine pH Ur Specific [place] Urine Protein Urine Glucose (UA) Urine Ketones Urine Blood Urine Nitrate Urine Bilirubin Urine Urobilinogen Ur Leukocyte Esterase Urine WBC (Auto) Urine RBC (Auto) Urine Bacteria Random Vancomycin Mycoplasma pneumon IgM 05/29/18 05/29/18 05/29/18 07:56 11:52 16:13 WBC RBC Hgb Hct MCV MCH MCHC RDW Plt Count MPV Neut % (Auto) Lymph % (Auto) [place] % (Auto) Eos % (Auto) Baso % (Auto) Neut # (Auto) Lymph # (Auto) [place] # (Auto) Eos # (Auto) Baso # (Auto) Neutrophils % (Manual) Band Neutrophils % Lymphocytes % (Manual) Monocytes % (Manual) Platelet Estimate Large Platelets RBC Morphology Sodium Potassium Chloride Carbon Dioxide Anion Gap BUN Creatinine Est GFR ( Amer) Est GFR (Non-Af Amer) POC Glucose (mg/dL) 207 H 227 H 162 H Random Glucose Hemoglobin A1c Calcium Phosphorus Magnesium Total Bilirubin AST ALT Alkaline Phosphatase Total Protein Albumin Globulin Albumin/Globulin Ratio Triglycerides Cholesterol LDL Cholesterol Direct HDL Cholesterol Free T4 TSH 3rd Generation Urine Color Urine Clarity Urine pH Ur Specific [place] Urine Protein Urine Glucose (UA) Urine Ketones Urine Blood Urine Nitrate Urine Bilirubin Urine Urobilinogen Ur Leukocyte Esterase Urine WBC (Auto) Urine RBC (Auto) Urine Bacteria Random Vancomycin Mycoplasma pneumon IgM 05/29/18 05/29/18 05/29/18 18:14 19:16 21:14 WBC RBC Hgb Hct MCV MCH MCHC RDW Plt Count MPV Neut % (Auto) Lymph % (Auto) [place] % (Auto) Eos % (Auto) Baso % (Auto) Neut # (Auto) Lymph # (Auto) [place] # (Auto) Eos # (Auto) Baso # (Auto) Neutrophils % (Manual) Band Neutrophils % Lymphocytes % (Manual) Monocytes % (Manual) Platelet Estimate Large Platelets RBC Morphology Sodium Potassium Chloride Carbon Dioxide Anion Gap BUN Creatinine Est GFR ( Amer) Est GFR (Non-Af Amer) POC Glucose (mg/dL) 178 H Random Glucose Hemoglobin A1c Calcium Phosphorus Magnesium Total Bilirubin AST ALT Alkaline Phosphatase Total Protein Albumin Globulin Albumin/Globulin Ratio Triglycerides Cholesterol LDL Cholesterol Direct HDL Cholesterol Free T4 TSH 3rd Generation Urine Color Yellow Urine Clarity Hazy Urine pH 5.0 Ur Specific [place] 1.010 Urine Protein Negative Urine Glucose (UA) Normal Urine Ketones Negative Urine Blood 2+ H Urine Nitrate Negative Urine Bilirubin Negative Urine Urobilinogen Normal Ur Leukocyte Esterase Neg Urine WBC (Auto) 5 Urine RBC (Auto) 1 Urine Bacteria Rare Random Vancomycin Mycoplasma pneumon IgM Negative 05/30/18 02:33 WBC RBC Hgb Hct MCV MCH MCHC RDW Plt Count MPV Neut % (Auto) Lymph % (Auto) [place] % (Auto) Eos % (Auto) Baso % (Auto) Neut # (Auto) Lymph # (Auto) [place] # (Auto) Eos # (Auto) Baso # (Auto) Neutrophils % (Manual) Band Neutrophils % Lymphocytes % (Manual) Monocytes % (Manual) Platelet Estimate Large Platelets RBC Morphology Sodium Potassium Chloride Carbon Dioxide Anion Gap BUN Creatinine Est GFR ( Amer) Est GFR (Non-Af Amer) POC Glucose (mg/dL) 163 H Random Glucose Hemoglobin A1c Calcium Phosphorus Magnesium Total Bilirubin AST ALT Alkaline Phosphatase Total Protein Albumin Globulin Albumin/Globulin Ratio Triglycerides Cholesterol LDL Cholesterol Direct HDL Cholesterol Free T4 TSH 3rd Generation Urine Color Urine Clarity Urine pH Ur Specific [place] Urine Protein Urine Glucose (UA) Urine Ketones Urine Blood Urine Nitrate Urine Bilirubin Urine Urobilinogen Ur Leukocyte Esterase Urine WBC (Auto) Urine RBC (Auto) Urine Bacteria Random Vancomycin Mycoplasma pneumon IgM Assessment & Plan - Assessment and Plan (Free Text) Assessment: 48M with persistent leukocytosis and bactermia Follow up venous studies furthe recs per Dr. James Murcia PGY3
[2018-05-30] MEDS: Piperacillin/Tazobact 2.25 GM in Sodium Chloride 100 ML IVPB SCH ×3 (06:15→22:00)
--- NOTE | 2018-05-30 08:06 | CP.PCM.PN ---
<Luisa Damon - Last Filed: 05/30/18 19:48> Subjective - Date & Time of Evaluation Date of Evaluation: 05/30/18 Time of Evaluation: 09:00 - Subjective Subjective: PGY-1 Danielle Rodriguez Medicine progress note for Dr. Damir Conti's service: asl interpreter Barbara [id number] Patient was seen and examined this morning. He states that he is feeling much better. His phlegm has decreased. He has an increased appetite and nausea has resolved. He is still complaining of R eye blurry vision and occasional itchiness. He denies pain in his R foot. Objective - Vital Signs/Intake and Output Vital Signs (last 24 hours): Temp Pulse Resp BP Pulse Ox 99.2 F 76 20 136/78 96 05/30/18 07:55 05/30/18 07:55 05/30/18 07:55 05/30/18 07:55 05/30/18 07:55 Intake and Output: 05/30/18 05/30/18 06:59 18:59 Output Total 800 Balance -800 - Medications Medications: Current Medications Artificial Tears (Artificial Tears) 1 ml OU BID [facility] Last Admin: 05/29/18 21:56 Dose: 1 ml Aspirin (Aspirin Chewable) 81 mg PO DAILY [facility] Last Admin: 05/29/18 09:41 Dose: 81 mg Calcium Acetate (Phoslo) [facility] Carvedilol (Coreg) 12.5 mg PO BID [facility] Last Admin: 05/29/18 17:22 Dose: 12.5 mg Dextrose (Dextrose 50% Inj) 0 ml IV STAT PRN; Protocol PRN Reason: Hypoglycemia Protocol Dextrose (Glutose 15) 0 gm PO ONCE PRN; Protocol PRN Reason: Hypoglycemia Protocol Folic Acid (Folic Acid) 1 mg PO DAILY [facility] Last Admin: 05/29/18 09:41 Dose: 1 mg Furosemide (Lasix) 40 mg IVP DAILY [facility] Last Admin: 05/29/18 13:37 Dose: 40 mg Glucagon (Glucagen Diagnostic Kit) 0 mg IM STAT PRN; Protocol PRN Reason: Hypoglycemia Protocol Dextrose (Dextrose 5% In Water 1000 Ml) 1,000 mls @ 0 mls/hr IV .Q0M PRN; Protocol PRN Reason: Hypoglycemia Protocol Piperacillin Sod/Tazobactam (Sod 2.25 gm/ Sodium Chloride) 100 mls @ 200 mls/hr IVPB Q8H [facility]; Protocol Last Admin: 05/30/18 06:15 Dose: 200 mls/hr Insulin Aspart (Novolog) 0 unit SC ACHS [facility]; Protocol Last Admin: 05/29/18 21:39 Dose: Not Given Insulin Glargine (Lantus) 5 unit SC HS [facility] Last Admin: 05/29/18 21:57 Dose: 5 u Multivitamins (Hexavitamin) 1 tab PO DAILY [facility] Last Admin: 05/29/18 09:41 Dose: 1 tab Ondansetron HCl (Zofran Inj) 4 mg IVP Q6H PRN PRN Reason: Nausea/Vomiting Rosuvastatin Calcium (Crestor) 5 mg PO HS [facility] Last Admin: 05/29/18 21:58 Dose: 5 mg Saccharomyces Boulardii (Florastor) 250 mg PO BID [facility] Last Admin: 05/29/18 21:57 Dose: 250 mg Thiamine HCl (Vitamin B1 Tab) 100 mg PO DAILY [facility] - Labs Labs: 05/29/18 06:28 05/29/18 06:20 APTT 55 SECONDS (21-34) H D 05/28/18 08:32 - Constitutional Appears: No Acute Distress - Head Exam Head Exam: ATRAUMATIC, NORMAL INSPECTION - Eye Exam Eye Exam: EOMI Additional comments: R eye injection, tearing - ENT Exam ENT Exam: Mucous Membranes Moist - Neck Exam Neck Exam: Normal Inspection - Respiratory Exam Respiratory Exam: Rales (b/l lower dubose), NORMAL BREATHING PATTERN. absent: Accessory Muscle Use, Wheezes, Respiratory Distress - Cardiovascular Exam Cardiovascular Exam: REGULAR RHYTHM, +S1, +S2 - GI/Abdominal Exam GI & Abdominal Exam: Soft. absent: Tenderness - Rectal Exam Rectal Exam: Deferred - Extremities Exam Extremities Exam: absent: Pedal Edema Additional comments: amputation of R 3rd, 4th, 5th toes, dry gangrene, no erythema or edema L anterior tibia 5x5cm ulceration with eschar - Neurological Exam Neurological Exam: Alert, Awake, CN II-XII Intact, Oriented x3 - Psychiatric Exam Psychiatric exam: Normal Affect, Normal Mood - Skin Skin Exam: Dry, Normal Color, Warm Assessment and Plan - Assessment and Plan (Free Text) Assessment: Patient is a 48 yo male with a history of uncontrolled T2DM and CHF s/p AICD who presented with generalized weakness and falls. Required ICU admission for 1 day due to hypotension- no pressors. Now much clinically improved and downgraded to telemetry unit. Plan: Sepsis with bacteremia- suspect osteomyelitis due to R foot amputation site and/or L anterior tibia ulceration - Most recent fever 05/27 100.7 - Leukocytosis and bandemia resolved - Lactate 1.8 - Procal 27.53- trend - ESR pending - CXR: no active disease - Echo: no vegetations - Blood Cx: Micrococcus species x2 - Urine, stool Cx no growth - R foot XR: no evidence of osteomyelitis - 3 view bone scans of b/l LEs pending - LE arterial and venous studies pending - F/u Certec scan - Zosyn 2.25 mg IV Q8H- started 05/29 - Vancomycin 1 g IV daily- started 05/30 - Florastor 250 mg PO BID - ICU consulted - Surgery consulted (James) - ID consulted (Charly) - Podiatry consulted (Ryder) - PT/OT Renal insufficiency, worsening- suspect ATN due to sepsis in addition to CKD from DM and HTN - BUN 37->85 - Cr 1.6->4.5 - Avoid ACEI/ARB and other nephrotoxic drugs - Renally dose meds - Maintain normotension - Nephrology consulted (Junior) Elevated troponin, improved- h/o nonischemic cardiomyopathy (cath 10/19), suspect 2/2 kidney disease, less likely NSTEMI - Trop: 0.17->0.233->0.222 - EKG: no ST elevations, ventricular-paced rhythm - Cardiology consulted (Mary)- no heparin or Plavix Elevated D-dimer (1468)- suspect 2/2 kidney disease - V/Q scan pending - Cannot get CTA due to elevated Creatinine (4.5) Hyponatremia, improving - Avoid correction >6-8 mEq/24 hrs - TSH 0.31, T4 wnl (1.5) - Serum and urine osm pending - Urine electrolytes pending - AM cortisol pending - Sodium bicarb 1300 mg PO BID Thrombocytopenia, improving- suspect 2/2 kidney disease - Monitor CBC - Hepatitis negative - HIV negative - F/u peripheral smear Secondary hyperparathyroidism- 2/2 kidney disease - Elevated PTH (153) - Low Ca (7) - Elevated Ph (5.2) - Vit D pending - Phoslo 667 mg PO BID Systolic heart failure (HFrEF)- s/p AICD - BNP 11,300 - Echo: EF 26% - Strict I's & O's - Daily weights - b/l lower lung field rales - CXR 05/29: no active disease - ASA 81 mg PO daily - Coreg 12.5 mg PO BID - Lasix 40 mg IV daily - Cardiology consulted (Hupart) Type 2 diabetes mellitus - A1c 7.8 - Hypoglycemia protocol - Accuchecks ACHS with ISS - Lantus 5 units SC QHS R eye conjunctivitis - Artificial tears BID - Bacitracin/Neomycin/polymyxin OD Q3H while awake x7 days - Ophthalmology consulted (Doron) Dyslipidemia - Choles 112, LDL<30, HDL 12, TG 320-765 (suspect 2nd value is not fasting) - Crestor 5 mg PO QHS Ppx: VTE: contraindicated due to thrombocytopenia and leg ulcerations GI: Pepcid 20 mg PO daily Code status: full code Case was discussed with attending, Dr. Damir Conti. <Damir Conti J - Last Filed: 06/03/18 22:42> Objective - Vital Signs/Intake and Output Vital Signs (last 24 hours): Temp Pulse Resp BP Pulse Ox 97.3 F L 71 20 135/71 96 06/03/18 15:00 06/03/18 15:00 06/03/18 15:00 06/03/18 19:55 06/03/18 15:00 - Medications Medications: Current Medications Artificial Tears (Artificial Tears) 1 ml OU BID [facility] Last Admin: 06/03/18 19:55 Dose: 1 drop Aspirin (Aspirin Chewable) 81 mg PO DAILY [facility] Last Admin: 06/03/18 09:38 Dose: 81 mg Calcium Acetate (Phoslo) 667 mg PO BIDCC [facility] Last Admin: 06/03/18 19:54 Dose: 667 mg Carvedilol (Coreg) 12.5 mg PO BID [facility] Last Admin: 06/03/18 19:55 Dose: 12.5 mg Dextrose (Dextrose 50% Inj) 0 ml IV STAT PRN; Protocol PRN Reason: Hypoglycemia Protocol Dextrose (Glutose 15) 0 gm PO ONCE PRN; Protocol PRN Reason: Hypoglycemia Protocol Docusate Sodium (Colace) 100 mg PO DAILY [facility] Last Admin: 06/03/18 09:37 Dose: 100 mg Ergocalciferol (Drisdol 50,000 Intl Units Cap) 1 cap PO Q7D [facility] Last Admin: 05/31/18 15:50 Dose: 1 cap Famotidine (Pepcid) 20 mg PO DAILY [facility] Last Admin: 06/03/18 09:37 Dose: 20 mg Folic Acid (Folic Acid) 1 mg PO DAILY [facility] Last Admin: 06/03/18 09:37 Dose: 1 mg Furosemide (Lasix) 40 mg IVP DAILY [facility] Last Admin: 06/03/18 09:39 Dose: 40 mg Glucagon (Glucagen Diagnostic Kit) 0 mg IM STAT PRN; Protocol PRN Reason: Hypoglycemia Protocol Heparin Sodium (Porcine) (Heparin) 5,000 units SC Q12 [facility] Last Admin: 06/03/18 21:35 Dose: 5,000 units Hydralazine HCl (Apresoline) 25 mg PO TID [facility] Last Admin: 06/03/18 19:54 Dose: 25 mg Dextrose (Dextrose 5% In Water 1000 Ml) 1,000 mls @ 0 mls/hr IV .Q0M PRN; Protocol PRN Reason: Hypoglycemia Protocol Nafcillin Sodium 2 gm/ Sodium (Chloride) 250 mls @ 250 mls/hr IVPB Q4H [facility]; Protocol Last Admin: 06/03/18 21:34 Dose: 250 mls/hr Insulin Aspart (Novolog) 0 unit SC ACHS [facility]; Protocol Last Admin: 06/03/18 19:56 Dose: 2 units Insulin Aspart (Novolog Mix 70/30 (70/30 Units/Ml)) 6 units SC AC [facility] Last Admin: 06/03/18 19:56 Dose: 6 units Insulin Glargine (Lantus) 20 unit SC HS [facility] Last Admin: 06/03/18 21:35 Dose: 20 units Isosorbide Mononitrate (Imdur Er) 30 mg PO DAILY [facility] Last Admin: 06/03/18 09:38 Dose: 30 mg Multivitamins (Hexavitamin) 1 tab PO DAILY [facility] Last Admin: 06/03/18 09:37 Dose: 1 tab Neomycin/Polymyxin/Bacitracin (Bacitracin/Neomycin/Polymyxin Opht Oint) 0 appli c OD Q3H [facility] Stop: 06/06/18 19:46 Last Admin: 06/03/18 19:55 Dose: 0.5 inch Ondansetron HCl (Zofran Inj) 4 mg IVP Q6H PRN PRN Reason: Nausea/Vomiting Polyethylene Glycol (Miralax) 17 gm PO DAILY PRN PRN Reason: Constipation Rosuvastatin Calcium (Crestor) 5 mg PO HS [facility] Last Admin: 06/03/18 21:35 Dose: 5 mg Saccharomyces Boulardii (Florastor) 250 mg PO BID [facility] Last Admin: 06/03/18 19:53 Dose: 250 mg Sodium Bicarbonate (Sodium Bicarbonate Tab) 1,300 mg PO TID [facility] Last Admin: 06/03/18 19:53 Dose: 1,300 mg Thiamine HCl (Vitamin B1 Tab) 100 mg PO DAILY [facility] Last Admin: 06/03/18 09:38 Dose: 100 mg - Labs Labs: 06/03/18 07:45 06/03/18 07:45 APTT 55 SECONDS (21-34) H D 05/28/18 08:32 Attending/Attestation - Attestation I have personally seen and examined this patient.: Yes I have fully participated in the care of the patient.: Yes I have reviewed all pertinent clinical information, including history, physical exam and plan: Yes Notes (Text): 06/03/18 22:42 This is a late entry. Care of this patient was gone over in detail with resident Dr. Damon. Damir Conti D.O.
[2018-05-30 08:12] LABS: BASO % 0.4 % (0.0-2.0); EOS % 0.3 % (0.0-4.0); HEMOGLOBIN 10.7 g/dL (12.0-18.0); LYMPH # 0.8 K/uL (1.0-4.3); LYMPH % 7.9 % (20.0-40.0); MEAN CELL VOLUME 87.5 fL (80.0-94.0); MEAN CORPUSCULAR HGB CONC 34.3 g/dL (33.0-37.0); MEAN PLATELET VOLUME 10.7 fL (7.2-11.7); MONO # 0.8 K/uL (0.0-0.8); MONO % 7.9 % (0.0-10.0); NEUT # 8.3 K/uL (1.8-7.0); NEUT % 83.5 % (50.0-75.0); PLATELET COUNT 99 K/uL (130-400); RBC 3.58 Mil/uL (4.40-5.90); RED CELL DISTRIBUTION WIDTH 13.4 % (11.5-14.5); WHITE BLOOD COUNT 9.9 K/uL (4.8-10.8)
[2018-05-30 08:39] LABS: ALB/GLOB RATIO 0.8 (1.0-2.1); ALBUMIN 2.7 g/dL (3.5-5.0)
[2018-05-30] MEDS: (Novolog) Insulin Aspart, Recombinant 100 u/ml 10 ml vial SC SCH ×3 (08:52→18:04)
[2018-05-30 08:55] LABS: HEPATITIS B SURFACE AG Negative (NEGATIVE)
[2018-05-30 09:01] LABS: HEPATITIS A IGM NEGATIVE (NEGATIVE); HEPATITIS B CORE AB NEGATIVE (NEGATIVE)
[2018-05-30 09:12] LABS: HEPATITIS C ANTIBODY NEGATIVE (NEGATIVE)
[2018-05-30] MEDS: Saccharomyces Boulardi 250 mg Cap PO SCH ×2 (09:33→18:14)
[2018-05-30] MEDS: Multiple Vitamins Tab PO SCH (09:33)
[2018-05-30] MEDS: Aritificial Tears (15ml) OU SCH ×2 (09:54→18:05)
[2018-05-30 09:58] LABS: BANDS 1 % (0-2); EOSINOPHIL 1 % (0-4); LYMPHOCYTE 7 % (20-40); MONOCYTE 8 % (0-10); NEUTROPHIL 83 % (50-75); PLATELET ESTIMATE DECREASED (NORMAL); TOTAL CELLS COUNTED 100
[2018-05-30 09:59] LABS: ANISOCYTOSIS SLIGHT; HYPOCHROMIC SLIGHT; LARGE PLATELETS PRESENT; POIKILOCYTOSIS SLIGHT
--- NOTE | 2018-05-30 14:05 | CP.PCM.PN ---
Subjective - Date & Time of Evaluation Date of Evaluation: 05/30/18 Time of Evaluation: 14:02 - Subjective Subjective: Pt feels well, no complaints Objective - Vital Signs/Intake and Output Vital Signs (last 24 hours): Temp Pulse Resp BP Pulse Ox 99.2 F 75 20 149/74 96 05/30/18 07:55 05/30/18 09:01 05/30/18 07:55 05/30/18 09:33 05/30/18 07:55 Intake and Output: 05/30/18 05/30/18 06:59 18:59 Output Total 800 Balance -800 - Medications Medications: Current Medications Artificial Tears (Artificial Tears) 1 ml OU BID [facility] Last Admin: 05/30/18 09:54 Dose: Not Given Aspirin (Aspirin Chewable) 81 mg PO DAILY [facility] Last Admin: 05/30/18 09:33 Dose: 81 mg Calcium Acetate (Phoslo) 667 mg PO BIDCC [facility] Last Admin: 05/30/18 08:52 Dose: 667 mg Carvedilol (Coreg) 12.5 mg PO BID [facility] Last Admin: 05/30/18 09:33 Dose: 12.5 mg Dextrose (Dextrose 50% Inj) 0 ml IV STAT PRN; Protocol PRN Reason: Hypoglycemia Protocol Dextrose (Glutose 15) 0 gm PO ONCE PRN; Protocol PRN Reason: Hypoglycemia Protocol Folic Acid (Folic Acid) 1 mg PO DAILY [facility] Last Admin: 05/30/18 09:33 Dose: 1 mg Furosemide (Lasix) 40 mg IVP DAILY [facility] Last Admin: 05/30/18 09:33 Dose: 40 mg Glucagon (Glucagen Diagnostic Kit) 0 mg IM STAT PRN; Protocol PRN Reason: Hypoglycemia Protocol Heparin Sodium (Porcine) (Heparin) 1,000 units IVP ONCE [facility] Dextrose (Dextrose 5% In Water 1000 Ml) 1,000 mls @ 0 mls/hr IV .Q0M PRN; Protocol PRN Reason: Hypoglycemia Protocol Piperacillin Sod/Tazobactam (Sod 2.25 gm/ Sodium Chloride) 100 mls @ 200 mls/hr IVPB Q8H [facility]; Protocol Last Admin: 05/30/18 13:34 Dose: 200 mls/hr Insulin Aspart (Novolog) 0 unit SC ACHS [facility]; Protocol Last Admin: 05/30/18 12:53 Dose: 1 units Insulin Glargine (Lantus) 5 unit SC HS [facility] Last Admin: 05/29/18 21:57 Dose: 5 u Multivitamins (Hexavitamin) 1 tab PO DAILY [facility] Last Admin: 05/30/18 09:33 Dose: 1 tab Ondansetron HCl (Zofran Inj) 4 mg IVP Q6H PRN PRN Reason: Nausea/Vomiting Rosuvastatin Calcium (Crestor) 5 mg PO HS [facility] Last Admin: 05/29/18 21:58 Dose: 5 mg Saccharomyces Boulardii (Florastor) 250 mg PO BID [facility] Last Admin: 05/30/18 09:33 Dose: 250 mg Sodium Bicarbonate (Sodium Bicarbonate Tab) 1,300 mg PO BID [facility] Thiamine HCl (Vitamin B1 Tab) 100 mg PO DAILY [facility] Last Admin: 05/30/18 09:33 Dose: 100 mg - Labs Labs: 05/30/18 07:58 05/30/18 07:58 APTT 55 SECONDS (21-34) H D 05/28/18 08:32 - Constitutional Appears: Well - Head Exam Head Exam: NORMAL INSPECTION - Eye Exam Eye Exam: EOMI Pupil Exam: NORMAL ACCOMODATION - ENT Exam ENT Exam: Mucous Membranes Moist - Neck Exam Neck Exam: Normal Inspection - Respiratory Exam Respiratory Exam: NORMAL BREATHING PATTERN - GI/Abdominal Exam GI & Abdominal Exam: Soft, Normal Bowel Sounds - Exam External exam: NORMAL EXTERNAL EXAM - Extremities Exam Extremities Exam: Full ROM - Neurological Exam Neurological Exam: Alert, Awake, CN II-XII Intact - Psychiatric Exam Psychiatric exam: Normal Mood - Skin Skin Exam: Dry Assessment and Plan - Assessment and Plan (Free Text) Assessment: 1. Pt was going to nuclear medicine for scan 2. Comfortable lying flat 3. PAD 4. Echo pending.
--- NOTE | 2018-05-30 14:14 | CP.PCM.PN ---
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 Hypertension control with meds as ordered. Maintain hemodynamics stable. Avoid hypotension. Patient not on ACEI/ARB due to recent EL Monitor Input/Output, daily weights and renal function with basic metabolic panel continue with lasix add sodium bicarb 1300 mg bid avoid correction in serum Na >6-8 meq/24 hrs Check urine analysis, spot protein/creatinine, albumin/creatinine ratio, urine for Na/OSmol, renal sonogram Check for 25-OH vitamin D, iPTH, phosphorus level. Dose meds/antibiotics for reduced GFR. Avoid fleets enema/magnesium based laxatives. Avoid nephrotoxins/NSAIDs/ iodinated contrast (unless needed emergently) Glycemic control Further work up for as per primary team Thanks for allowing me to participate in care of your patient. Will follow patient with you. Please call if any Qs. had d/w team Dr Max Chu Office: [phone] Subjective: Noted events overnight. Patients feels better Denies chest pain, palpitation, shortness of breath, leg swelling. All other negative Physical Examination: General Appearance: Comfortable, in no acute respiratory distress, co-operative . Vitals reviewed and noted as below Head; Atraumatic, normocephalic ENT: no ulcers no thrush. Tongue is midline. Oropharynx: no rash or ulcers. EYES: Pupils are equal, round and reactive to light accommodation. Eye muscles and extraocular movement intact. Sclera is anicteric. Neck; supple no lymphadenopathy, no thyromegaly or bruit Lungs: Normal respiratory rate/effort. Breath sounds bilateral reduced at bases with crackles Heart: Normal rate. s1s2 normal. No rub or gallop. Extremities: no edema. No varicose veins. Rt foot toe amputations in past with superificial scab Neurological: Patient is alert, awake and oriented to person, place and time. No focal deficit. Strength bilateral appropriate and equal Skin: Warm and dry. Normal turgor. No rash. Palpitation: Normal elasticity for age Abdomen: Abdomen is soft. Bowel sounds +. There is no abdominal tenderness, no guarding/rigidity no organomegaly Psych: normal insight and normal affect/mood MSK: no joint tenderness or swelling. Digits and nails normal, no deformity : kidney or bladder not palpable. has mcguire Labs/imaging reviewed. Past medical history, past surgical history, family history, social history, allergy reviewed and noted as below Family hx: no hx of CKD. Rest non-contributory HIV/Hep B and C neg UA 2+ blood and neg prot Objective - Vital Signs/Intake and Output Vital Signs (last 24 hours): Temp Pulse Resp BP Pulse Ox 99.2 F 75 20 149/74 96 05/30/18 07:55 05/30/18 09:01 05/30/18 07:55 05/30/18 09:33 05/30/18 07:55 Intake and Output: 05/30/18 05/30/18 06:59 18:59 Output Total 800 Balance -800 - Medications Medications: Current Medications Artificial Tears (Artificial Tears) 1 ml OU BID [facility] Last Admin: 05/30/18 09:54 Dose: Not Given Aspirin (Aspirin Chewable) 81 mg PO DAILY [facility] Last Admin: 05/30/18 09:33 Dose: 81 mg Calcium Acetate (Phoslo) 667 mg PO BIDCC [facility] Last Admin: 05/30/18 08:52 Dose: 667 mg Carvedilol (Coreg) 12.5 mg PO BID [facility] Last Admin: 05/30/18 09:33 Dose: 12.5 mg Dextrose (Dextrose 50% Inj) 0 ml IV STAT PRN; Protocol PRN Reason: Hypoglycemia Protocol Dextrose (Glutose 15) 0 gm PO ONCE PRN; Protocol PRN Reason: Hypoglycemia Protocol Folic Acid (Folic Acid) 1 mg PO DAILY [facility] Last Admin: 05/30/18 09:33 Dose: 1 mg Furosemide (Lasix) 40 mg IVP DAILY [facility] Last Admin: 05/30/18 09:33 Dose: 40 mg Glucagon (Glucagen Diagnostic Kit) 0 mg IM STAT PRN; Protocol PRN Reason: Hypoglycemia Protocol Heparin Sodium (Porcine) (Heparin) 1,000 units IVP ONCE [facility] Dextrose (Dextrose 5% In Water 1000 Ml) 1,000 mls @ 0 mls/hr IV .Q0M PRN; Protocol PRN Reason: Hypoglycemia Protocol Piperacillin Sod/Tazobactam (Sod 2.25 gm/ Sodium Chloride) 100 mls @ 200 mls/hr IVPB Q8H [facility]; Protocol Last Admin: 05/30/18 13:34 Dose: 200 mls/hr Insulin Aspart (Novolog) 0 unit SC ACHS [facility]; Protocol Last Admin: 05/30/18 12:53 Dose: 1 units Insulin Glargine (Lantus) 5 unit SC HS [facility] Last Admin: 05/29/18 21:57 Dose: 5 u Multivitamins (Hexavitamin) 1 tab PO DAILY [facility] Last Admin: 05/30/18 09:33 Dose: 1 tab Ondansetron HCl (Zofran Inj) 4 mg IVP Q6H PRN PRN Reason: Nausea/Vomiting Rosuvastatin Calcium (Crestor) 5 mg PO HS [facility] Last Admin: 05/29/18 21:58 Dose: 5 mg Saccharomyces Boulardii (Florastor) 250 mg PO BID [facility] Last Admin: 05/30/18 09:33 Dose: 250 mg Sodium Bicarbonate (Sodium Bicarbonate Tab) 1,300 mg PO BID [facility] Thiamine HCl (Vitamin B1 Tab) 100 mg PO DAILY [facility] Last Admin: 05/30/18 09:33 Dose: 100 mg - Labs Labs: 05/30/18 07:58 05/30/18 07:58 APTT 55 SECONDS (21-34) H D 05/28/18 08:32
--- NOTE | 2018-05-30 15:52 | RAD ---
Date of service: 05/30/2018 PROCEDURE: Bilateral Feet Radiographs. HISTORY: r/o OM bacteremia sepsis COMPARISON: None. FINDINGS: BONES: Limited examination. Two views only. Right Foot: Status post amputation 2nd 3rd and 4th digits mid metatarsal. Hallux valgus. No acute fracture. Left Foot: Status post osteotomy distal aspect 5th metatarsal. Status post osteotomy distal aspect 2nd proximal phalanx. No acute fracture. JOINTS: Right Foot: Normal. No osteoarthritis. Left Foot: Normal. No osteoarthritis. SOFT TISSUES: Right Foot: Normal. Left Foot: Normal. OTHER FINDINGS: None. IMPRESSION: Multiple right foot amputations. Several left foot osteotomies. No plain radiographic evidence of osteomyelitis.
--- NOTE | 2018-05-30 15:58 | US ---
Date of service: 05/30/2018 PROCEDURE: Ultrasound of the Kidneys HISTORY: EL, COMPARISON: 07/21/2017. TECHNIQUE: Sonogram of the kidneys. FINDINGS: RIGHT KIDNEY: Measures: 13.7 cm. Normal in size, contour and echogenicity. No stone, solid mass lesion or hydronephrosis visualized. LEFT KIDNEY: Measures: 14.3 cm. Normal in size, contour and echogenicity. No stone, solid mass lesion or hydronephrosis visualized. OTHER FINDINGS: None. IMPRESSION: Unremarkable renal sonogram.
[2018-05-30 18:12] LABS: STREP PNEUMONIAE NEGATIVE (NEGATIVE)
--- NOTE | 2018-05-30 18:16 | CP.PCM.PN ---
Subjective - Date & Time of Evaluation Date of Evaluation: 05/30/18 Time of Evaluation: 09:00 - Subjective Subjective: Vascular Surgery: Dr. Ramirez Pt seen and examined. No acute overnight events. States he feels ok and denies any pain in his legs. Denies other complaints at this time, denies fevers/chills. Objective - Vital Signs/Intake and Output Vital Signs (last 24 hours): Temp Pulse Resp BP Pulse Ox 98.1 F 69 20 132/78 96 05/30/18 16:00 05/30/18 16:55 05/30/18 16:00 05/30/18 18:05 05/30/18 16:00 Intake and Output: 05/30/18 05/30/18 06:59 18:59 Output Total 800 Balance -800 - Medications Medications: Current Medications Artificial Tears (Artificial Tears) 1 ml OU BID [facility] Last Admin: 05/30/18 18:05 Dose: 1 ml Aspirin (Aspirin Chewable) 81 mg PO DAILY [facility] Last Admin: 05/30/18 09:33 Dose: 81 mg Calcium Acetate (Phoslo) 667 mg PO BIDCC [facility] Last Admin: 05/30/18 08:52 Dose: 667 mg Carvedilol (Coreg) 12.5 mg PO BID [facility] Last Admin: 05/30/18 18:05 Dose: 12.5 mg Dextrose (Dextrose 50% Inj) 0 ml IV STAT PRN; Protocol PRN Reason: Hypoglycemia Protocol Dextrose (Glutose 15) 0 gm PO ONCE PRN; Protocol PRN Reason: Hypoglycemia Protocol Folic Acid (Folic Acid) 1 mg PO DAILY [facility] Last Admin: 05/30/18 09:33 Dose: 1 mg Furosemide (Lasix) 40 mg IVP DAILY [facility] Last Admin: 05/30/18 09:33 Dose: 40 mg Glucagon (Glucagen Diagnostic Kit) 0 mg IM STAT PRN; Protocol PRN Reason: Hypoglycemia Protocol Heparin Sodium (Porcine) (Heparin) 1,000 units IVP ONCE [facility] Dextrose (Dextrose 5% In Water 1000 Ml) 1,000 mls @ 0 mls/hr IV .Q0M PRN; Protocol PRN Reason: Hypoglycemia Protocol Piperacillin Sod/Tazobactam (Sod 2.25 gm/ Sodium Chloride) 100 mls @ 200 mls/hr IVPB Q8H [facility]; Protocol Last Admin: 05/30/18 13:34 Dose: 200 mls/hr Insulin Aspart (Novolog) 0 unit SC [facility]; Protocol Last Admin: 05/30/18 18:04 Dose: 2 units Insulin Glargine (Lantus) 5 unit SC [facility] Last Admin: 05/29/18 21:57 Dose: 5 u Multivitamins (Hexavitamin) 1 tab PO DAILY [facility] Last Admin: 05/30/18 09:33 Dose: 1 tab Ondansetron HCl (Zofran Inj) 4 mg IVP Q6H PRN PRN Reason: Nausea/Vomiting Rosuvastatin Calcium (Crestor) 5 mg PO [facility] Last Admin: 05/29/18 21:58 Dose: 5 mg Saccharomyces Boulardii (Florastor) 250 mg PO BID [facility] Last Admin: 05/30/18 09:33 Dose: 250 mg Sodium Bicarbonate (Sodium Bicarbonate Tab) 1,300 mg PO BID [facility] Last Admin: 05/30/18 18:04 Dose: 1,300 mg Thiamine HCl (Vitamin B1 Tab) 100 mg PO DAILY [facility] Last Admin: 05/30/18 09:33 Dose: 100 mg - Labs Labs: 05/30/18 07:58 05/30/18 07:58 APTT 55 SECONDS (21-34) H D 05/28/18 08:32 - Constitutional Appears: Well, No Acute Distress - Head Exam Head Exam: ATRAUMATIC, NORMOCEPHALIC - ENT Exam ENT Exam: Mucous Membranes Moist - Respiratory Exam Respiratory Exam: NORMAL BREATHING PATTERN - Cardiovascular Exam Cardiovascular Exam: RRR - GI/Abdominal Exam GI & Abdominal Exam: Soft. absent: Tenderness - Extremities Exam Additional comments: b/l LE warm, multiple ulcers on b/l shins and feet, palpable DP b/l , dopplerable PT b/l - Neurological Exam Neurological Exam: Alert, Awake, Oriented x3 - Skin Skin Exam: Dry, Warm Assessment and Plan - Assessment and Plan (Free Text) Assessment: 48M with PVD and LE ulcers Plan: - f/u [facility]/PVR - further recs pending vascular studies - d/w Dr. James Alston
--- NOTE | 2018-05-30 19:41 | CARD ---
APPROVED REPORT Date of service: 05/27/2018 EKG Measurement Heart [id number] P63 [id number] <Conclusion> Ventricular-paced rhythm Abnormal ECG
--- NOTE | 2018-05-30 19:42 | CARD ---
APPROVED REPORT Date of service: 05/27/2018 EKG Measurement Heart [id number] <Conclusion> Ventricular-paced rhythm Abnormal ECG
[2018-05-30 20:06] LABS: URINE AMORPHOUS SEDIMENT FEW /ul (<OCC); URINE BACTERIA MANY (<OCC); URINE BILIRUBIN NEGATIVE (NEGATIVE); URINE BLOOD 2+ (NEGATIVE); URINE CLARITY Hazy (Clear); URINE COLOR Yellow (YELLOW); URINE GLUCOSE (UA) NORMAL (Normal); URINE LEUKOCYTE ESTERASE NEG Leu/uL (Negative); URINE PROTEIN NEGATIVE (NEGATIVE); URINE UROBILINOGEN NORMAL mg/dL (0.2-1.0)
[2018-05-30] MEDS: Bacitracin/Neomycin/Polymyxin OPHT OINT OD SCH ×2 (20:10→22:01)
[2018-05-30] MEDS: (Lantus) Insulin Glargine, Recombinant SC SCH (21:59)
[2018-05-31] MEDS: Bacitracin/Neomycin/Polymyxin OPHT OINT OD SCH ×8 (00:45→22:03)
[2018-05-31] MEDS: Piperacillin/Tazobact 2.25 GM in Sodium Chloride 100 ML IVPB SCH ×3 (05:52→22:02)
--- NOTE | 2018-05-31 06:29 | CP.PCM.PN ---
<Luisa Damon - Last Filed: 05/31/18 17:11> Subjective - Date & Time of Evaluation Date of Evaluation: 05/31/18 Time of Evaluation: 07:30 - Subjective Subjective: PGY-1 [facility] Rodriguez Medicine progress note for Dr. 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 He states he is feeling well. He still has some intermittent nausea but is able to tolerate PO diet. He also has intermittent cough. His R eye is feeling better. He denies pain. Objective - Vital Signs/Intake and Output Vital Signs (last 24 hours): Temp Pulse Resp BP Pulse Ox 97.8 F 66 20 130/65 94 L 05/30/18 23:25 05/31/18 02:58 05/30/18 23:25 05/30/18 23:25 05/30/18 23:25 Intake and Output: 05/30/18 05/31/18 18:59 06:59 Output Total 900 325 Balance -900 -325 - Medications Medications: Current Medications Artificial Tears (Artificial Tears) 1 ml OU BID [facility] Last Admin: 05/30/18 18:05 Dose: 1 ml Aspirin (Aspirin Chewable) 81 mg PO DAILY [facility] Last Admin: 05/30/18 09:33 Dose: 81 mg Calcium Acetate (Phoslo) 667 mg PO BIDCC [facility] Last Admin: 05/30/18 17:58 Dose: 667 mg Carvedilol (Coreg) 12.5 mg PO BID [facility] Last Admin: 05/30/18 18:05 Dose: 12.5 mg Dextrose (Dextrose 50% Inj) 0 ml IV STAT PRN; Protocol PRN Reason: Hypoglycemia Protocol Dextrose (Glutose 15) 0 gm PO ONCE PRN; Protocol PRN Reason: Hypoglycemia Protocol Famotidine (Pepcid) 20 mg PO DAILY [facility] Folic Acid (Folic Acid) 1 mg PO DAILY [facility] Last Admin: 05/30/18 09:33 Dose: 1 mg Furosemide (Lasix) 40 mg IVP DAILY [facility] Last Admin: 05/30/18 09:33 Dose: 40 mg Glucagon (Glucagen Diagnostic Kit) 0 mg IM STAT PRN; Protocol PRN Reason: Hypoglycemia Protocol Heparin Sodium (Porcine) (Heparin) 1,000 units IVP ONCE [facility] Dextrose (Dextrose 5% In Water 1000 Ml) 1,000 mls @ 0 mls/hr IV .Q0M PRN; Protocol PRN Reason: Hypoglycemia Protocol Piperacillin Sod/Tazobactam (Sod 2.25 gm/ Sodium Chloride) 100 mls @ 200 mls/hr IVPB Q8H [facility]; Protocol Last Admin: 05/31/18 05:52 Dose: 200 mls/hr Vancomycin/Sodium Chloride (Vancomycin 1 Gm/Ns 200 Ml) 1 gm in 200 mls @ 133 mls/hr IVPB DAILY [facility]; Protocol Stop: 06/05/18 10:01 Insulin Aspart (Novolog) 0 unit SC ACHS [facility]; Protocol Last Admin: 05/30/18 18:04 Dose: 2 units Insulin Glargine (Lantus) 5 unit SC [facility] Last Admin: 05/30/18 21:59 Dose: 5 u Multivitamins (Hexavitamin) 1 tab PO DAILY [facility] Last Admin: 05/30/18 09:33 Dose: 1 tab Neomycin/Polymyxin/Bacitracin (Bacitracin/Neomycin/Polymyxin Opht Oint) 0 applic OD Q3H [facility] Stop: 06/06/18 19:46 Last Admin: 05/31/18 01:45 Dose: Not Given Ondansetron HCl (Zofran Inj) 4 mg IVP Q6H PRN PRN Reason: Nausea/Vomiting Rosuvastatin Calcium (Crestor) 5 mg PO HS [facility] Last Admin: 05/30/18 22:00 Dose: 5 mg Saccharomyces Boulardii (Florastor) 250 mg PO BID [facility] Last Admin: 05/30/18 18:14 Dose: 250 mg Sodium Bicarbonate (Sodium Bicarbonate Tab) 1,300 mg PO BID [facility] Last Admin: 05/30/18 18:04 Dose: 1,300 mg Thiamine HCl (Vitamin B1 Tab) 100 mg PO DAILY [facility] Last Admin: 05/30/18 09:33 Dose: 100 mg - Labs Labs: 05/30/18 07:58 05/30/18 07:58 APTT 55 SECONDS (21-34) H D 05/28/18 08:32 - Constitutional Appears: No Acute Distress, Unkempt - Head Exam Head Exam: ATRAUMATIC, NORMAL INSPECTION - Eye Exam Eye Exam: EOMI - ENT Exam ENT Exam: Mucous Membranes Moist - Respiratory Exam Respiratory Exam: NORMAL BREATHING PATTERN. absent: Respiratory Distress - Cardiovascular Exam Cardiovascular Exam: REGULAR RHYTHM, +S1, +S2 - GI/Abdominal Exam GI & Abdominal Exam: Soft. absent: Tenderness - Rectal Exam Rectal Exam: Deferred - Extremities Exam Extremities Exam: absent: Calf Tenderness, Pedal Edema Additional comments: R foot- toes 3, 4, 5 amputated, dark fungating mass at amputation site, no discharge L foot 2nd toe amputated L anterior tibia 3x3cm dark scab/eschar - Neurological Exam Neurological Exam: Alert, Awake, CN II-XII Intact, Oriented x3 Neuro motor strength exam: Left Upper Extremity: 5, Right Upper Extremity: 5, Left Lower Extremity: 5, Right Lower Extremity: 5 - Psychiatric Exam Psychiatric exam: Normal Affect, Normal Mood - Skin Skin Exam: Dry, Normal Color, Warm Assessment and Plan - Assessment and Plan (Free Text) Assessment: Patient is a 48 yo male with a history of uncontrolled T2DM and CHF s/p AICD who presented with generalized weakness and falls. Required ICU admission for 1 day due to hypotension- no pressors. Now much clinically improved and downgraded to telemetry unit. Patient's initial blood Cx grew micrococcus species. Repeat blood Cx continue to grow GPC. Pending INA and bone scans to evaluate source of bactreremia. Plan: Sepsis with Gram positive bacteremia (Micrococcus)- suspect osteomyelitis due to R foot amputation site and/or L anterior tibia ulceration and/or endocarditis - Most recent fever 05/27 100.7 - Leukocytosis and bandemia resolved - Lactate 1.8 - Procal 27.53->8.3 - ESR 72 - CXR: no active disease - TTE: no vegetations - INA pending - Blood Cx: Micrococcus species x2 - Repeat Blood Cx: GPC x4 - Urine, stool Cx no growth - R foot XR: no evidence of osteomyelitis - Certec scan negative - LE arterial and venous studies: no significant abnormalities per vasc surgery - 3 view bone scans of b/l LEs pending - Zosyn 2.25 mg IV Q8H- started 05/29 - Vancomycin 1 g IV daily- started 05/30 - Florastor 250 mg PO BID - ICU consulted - Surgery consulted (James)- no intervention - ID consulted (Charly) - Podiatry consulted (Ryder)- may Bx R foot mass - PT/OT Renal insufficiency, worsening- suspect ATN due to sepsis and/or CHF in addition to CKD from DM and HTN - BUN 37->91 - Cr 1.6->4.9 - Avoid ACEI/ARB and other nephrotoxic drugs - Renally dose meds - Maintain normotension - No IVF due to CHF - Nephrology consulted (Pacheco) Elevated troponin, improved- h/o nonischemic cardiomyopathy (cath 10/19), suspect 2/2 kidney disease, doubt NSTEMI - Trop: 0.17->0.233->0.222 - EKG: no ST elevations, ventricular-paced rhythm - Cardiology consulted (Hupart)- no heparin or Plavix Elevated D-dimer (1468)- suspect 2/2 kidney disease - V/Q scan pending - Cannot get CTA due to kidney function Hyponatremia, improving - Avoid correction >6-8 mEq/24 hrs - TSH low (0.31), T4 wnl (1.5) - Serum osm 316 - Urine osm 281 - Urine Na 27, K 6.4 - AM cortisol elevated 29.7 - Sodium bicarb 1300 mg PO TID Systolic heart failure (HFrEF)- s/p AICD - BNP 11,300 - Echo: EF 26% - Strict I's & O's - Daily weights - Fluid restriction <1200 mL/day - b/l lower lung field rales - CXR 05/29: no active disease - ASA 81 mg PO daily - Coreg 12.5 mg PO BID - Lasix 40 mg IV daily - Start hydralazine 25 mg PO TID - Start Isosorbide nitrate 30 mg PO daily - Cardiology consulted (Hupart) Thrombocytopenia, resolved- suspect 2/2 kidney disease - Monitor CBC - Hepatitis negative - HIV negative Secondary hyperparathyroidism- 2/2 kidney disease - Elevated PTH (153) - Low Ca (7) - Elevated Ph (5.2) - Low Vit D (<12.5) - Phoslo 667 mg PO BID - Ergocalciferol 50,000 QWK Type 2 diabetes mellitus - A1c 7.8 - Hypoglycemia protocol - Accuchecks ACHS with ISS - Lantus 5 units SC QHS- consider increase tomorrow R eye conjunctivitis, improving - Artificial tears BID - Bacitracin/Neomycin/polymyxin OD Q3H while awake x7 days - Ophthalmology consulted (Doron) Dyslipidemia - Choles 112, LDL<30, HDL 12, TG 320-765 (suspect 2nd value is not fasting) - Crestor 5 mg PO QHS Constipation - Miralax 17 g PO daily PRN - Colace 100 mg PO daily Ppx: VTE: contraindicated due to thrombocytopenia and leg ulcerations GI: Pepcid 20 mg PO daily Code status: full code Case was discussed with attending, Dr. Damir Conti. <Damir Conti J - Last Filed: 06/03/18 22:41> Objective - Vital Signs/Intake and Output Vital Signs (last 24 hours): Temp Pulse Resp BP Pulse Ox 97.3 F L 71 20 135/71 96 06/03/18 15:00 06/03/18 15:00 06/03/18 15:00 06/03/18 19:55 06/03/18 15:00 - Medications Medications: Current Medications Artificial Tears (Artificial Tears) 1 ml OU BID [facility] Last Admin: 06/03/18 19:55 Dose: 1 drop Aspirin (Aspirin Chewable) 81 mg PO DAILY [facility] Last Admin: 06/03/18 09:38 Dose: 81 mg Calcium Acetate (Phoslo) 667 mg PO BIDCC [facility] Last Admin: 06/03/18 19:54 Dose: 667 mg Carvedilol (Coreg) 12.5 mg PO BID [facility] Last Admin: 06/03/18 19:55 Dose: 12.5 mg Dextrose (Dextrose 50% Inj) 0 ml IV STAT PRN; Protocol PRN Reason: Hypoglycemia Protocol Dextrose (Glutose 15) 0 gm PO ONCE PRN; Protocol PRN Reason: Hypoglycemia Protocol Docusate Sodium (Colace) 100 mg PO DAILY [facility] Last Admin: 06/03/18 09:37 Dose: 100 mg Ergocalciferol (Drisdol 50,000 Intl Units Cap) 1 cap PO Q7D [facility] Last Admin: 05/31/18 15:50 Dose: 1 cap Famotidine (Pepcid) 20 mg PO DAILY [facility] Last Admin: 06/03/18 09:37 Dose: 20 mg Folic Acid (Folic Acid) 1 mg PO DAILY [facility] Last Admin: 06/03/18 09:37 Dose: 1 mg Furosemide (Lasix) 40 mg IVP DAILY [facility] Last Admin: 06/03/18 09:39 Dose: 40 mg Glucagon (Glucagen Diagnostic Kit) 0 mg IM STAT PRN; Protocol PRN Reason: Hypoglycemia Protocol Heparin Sodium (Porcine) (Heparin) 5,000 units SC Q12 [facility] Last Admin: 06/03/18 21:35 Dose: 5,000 units Hydralazine HCl (Apresoline) 25 mg PO TID [facility] Last Admin: 06/03/18 19:54 Dose: 25 mg Dextrose (Dextrose 5% In Water 1000 Ml) 1,000 mls @ 0 mls/hr IV .Q0M PRN; Protocol PRN Reason: Hypoglycemia Protocol Nafcillin Sodium 2 gm/ Sodium (Chloride) 250 mls @ 250 mls/hr IVPB Q4H [facility]; Protocol Last Admin: 06/03/18 21:34 Dose: 250 mls/hr Insulin Aspart (Novolog) 0 unit SC ACHS [facility]; Protocol Last Admin: 06/03/18 19:56 Dose: 2 units Insulin Aspart (Novolog Mix 70/30 (70/30 Units/Ml)) 6 units SC AC [facility] Last Admin: 06/03/18 19:56 Dose: 6 units Insulin Glargine (Lantus) 20 unit SC HS [facility] Last Admin: 06/03/18 21:35 Dose: 20 units Isosorbide Mononitrate (Imdur Er) 30 mg PO DAILY [facility] Last Admin: 06/03/18 09:38 Dose: 30 mg Multivitamins (Hexavitamin) 1 tab PO DAILY [facility] Last Admin: 06/03/18 09:37 Dose: 1 tab Neomycin/Polymyxin/Bacitracin (Bacitracin/Neomycin/Polymyxin Opht Oint) 0 applic OD Q3H [facility] Stop: 06/06/18 19:46 Last Admin: 06/03/18 19:55 Dose: 0.5 inch Ondansetron HCl (Zofran Inj) 4 mg IVP Q6H PRN PRN Reason: Nausea/Vomiting Polyethylene Glycol (Miralax) 17 gm PO DAILY PRN PRN Reason: Constipation Rosuvastatin Calcium (Crestor) 5 mg PO HS [facility] Last Admin: 06/03/18 21:35 Dose: 5 mg Saccharomyces Boulardii (Florastor) 250 mg PO BID [facility] Last Admin: 06/03/18 19:53 Dose: 250 mg Sodium Bicarbonate (Sodium Bicarbonate Tab) 1,300 mg PO TID [facility] Last Admin: 06/03/18 19:53 Dose: 1,300 mg Thiamine HCl (Vitamin B1 Tab) 100 mg PO DAILY [facility] Last Admin: 06/03/18 09:38 Dose: 100 mg - Labs Labs: 06/03/18 07:45 06/03/18 07:45 APTT 55 SECONDS (21-34) H D 05/28/18 08:32 Attending/Attestation - Attestation I have personally seen and examined this patient.: Yes I have fully participated in the care of the patient.: Yes I have reviewed all pertinent clinical information, including history, physical exam and plan: Yes Notes (Text): 06/03/18 22:40 This is a late entry. Care of this patient was gone over in detail with resident Dr. Damon. Damir Conti D.O.
[2018-05-31] MEDS ORDERED: POLYETHYLENE GLYCOL 3350 17 GM/Dose PACKET PO PRN (10:00)
[2018-05-31] MEDS: Multiple Vitamins Tab PO SCH (10:40)
[2018-05-31] MEDS: Saccharomyces Boulardi 250 mg Cap PO SCH ×2 (10:40→17:33)
[2018-05-31] MEDS: Aritificial Tears (15ml) OU SCH ×2 (10:41→17:33)
[2018-05-31] MEDS: Vancomycin 1 gm/NS 200 ml 1 GM/200 ML BAG IVPB SCH (10:42)
--- NOTE | 2018-05-31 10:47 | NM ---
Date of service: 05/30/2018 PROCEDURE: Ceretec labeled white blood cell study HISTORY: concern for osteomyelitis lower extremities COMPARISON: 05/30/2018 bilateral feet TECHNIQUE: 20 mCi technetium 99 M Ceretec labeled white blood cells administered intravenously. FINDINGS: No abnormal accumulation identified in the lower extremities. Findings are consistent anatomically with amputations 3rd 4th and 5th metatarsals right foot. IMPRESSION: Negative Ceretec labeled white blood cell study for acute osseous process.
[2018-05-31] MEDS: (Novolog) Insulin Aspart, Recombinant 100 u/ml 10 ml vial SC SCH ×4 (10:49→22:04)
[2018-05-31 11:44] LABS: BASO # 0.2 K/uL (0.0-0.2); BASO % 1.7 % (0.0-2.0); EOS # 0.2 K/uL (0.0-0.7); EOS % 2.4 % (0.0-4.0); HEMOGLOBIN 12.6 g/dL (12.0-18.0); LYMPH # 0.9 K/uL (1.0-4.3); LYMPH % 9.3 % (20.0-40.0); MEAN CELL VOLUME 88.1 fL (80.0-94.0); MEAN CORPUSCULAR HEMOGLOBIN 30.2 pg (27.0-31.0); MEAN CORPUSCULAR HGB CONC 34.3 g/dL (33.0-37.0); MEAN PLATELET VOLUME 10.5 fL (7.2-11.7); MONO # 0.7 K/uL (0.0-0.8); MONO % 7.4 % (0.0-10.0); NEUT # 7.3 K/uL (1.8-7.0); NEUT % 79.2 % (50.0-75.0); PLATELET COUNT 169 K/uL (130-400); RBC 4.19 Mil/uL (4.40-5.90); WHITE BLOOD COUNT 9.2 K/uL (4.8-10.8)
[2018-05-31 12:04] LABS: ALB/GLOB RATIO 0.8 (1.0-2.1); CALCIUM 7.9 mg/dl (8.6-10.4)
--- NOTE | 2018-05-31 12:04 | CP.PCM.PN ---
Subjective - Date & Time of Evaluation Date of Evaluation: 05/31/18 Time of Evaluation: 08:00 - Subjective Subjective: blood cultures still positive endovascular source is highly likely Objective - Vital Signs/Intake and Output Vital Signs (last 24 hours): Temp Pulse Resp BP Pulse Ox 97.7 F 70 20 129/78 96 05/31/18 09:30 05/31/18 11:28 05/31/18 09:30 05/31/18 10:41 05/31/18 09:30 Intake and Output: 05/31/18 05/31/18 06:59 18:59 Output Total 325 Balance -325 - Medications Medications: Current Medications Artificial Tears (Artificial Tears) 1 ml OU BID [facility] Last Admin: 05/31/18 10:41 Dose: 1 drop Aspirin (Aspirin Chewable) 81 mg PO DAILY [facility] Last Admin: 05/31/18 10:39 Dose: 81 mg Calcium Acetate (Phoslo) 667 mg PO BIDCC [facility] Last Admin: 05/31/18 10:40 Dose: 667 mg Carvedilol (Coreg) 12.5 mg PO BID [facility] Last Admin: 05/31/18 10:39 Dose: 12.5 mg Dextrose (Dextrose 50% Inj) 0 ml IV STAT PRN; Protocol PRN Reason: Hypoglycemia Protocol Dextrose (Glutose 15) 0 gm PO ONCE PRN; Protocol PRN Reason: Hypoglycemia Protocol Docusate Sodium (Colace) 100 mg PO DAILY [facility] Last Admin: 05/31/18 10:40 Dose: 100 mg Famotidine (Pepcid) 20 mg PO DAILY [facility] Last Admin: 05/31/18 10:40 Dose: 20 mg Folic Acid (Folic Acid) 1 mg PO DAILY [facility] Last Admin: 05/31/18 10:40 Dose: 1 mg Furosemide (Lasix) 40 mg IVP DAILY [facility] Last Admin: 05/31/18 10:41 Dose: 40 mg Glucagon (Glucagen Diagnostic Kit) 0 mg IM STAT PRN; Protocol PRN Reason: Hypoglycemia Protocol Heparin Sodium (Porcine) (Heparin) 1,000 units IVP ONCE [facility] Dextrose (Dextrose 5% In Water 1000 Ml) 1,000 mls @ 0 mls/hr IV .Q0M PRN; Protocol PRN Reason: Hypoglycemia Protocol Piperacillin Sod/Tazobactam (Sod 2.25 gm/ Sodium Chloride) 100 mls @ 200 mls/hr IVPB Q8H [facility]; Protocol Last Admin: 05/31/18 05:52 Dose: 200 mls/hr Vancomycin/Sodium Chloride (Vancomycin 1 Gm/Ns 200 Ml) 1 gm in 200 mls @ 133 mls/hr IVPB DAILY [facility]; Protocol Stop: 06/05/18 10:01 Last Admin: 05/31/18 10:42 Dose: 133 mls/hr Insulin Aspart (Novolog) 0 unit SC ACHS [facility]; Protocol Last Admin: 05/31/18 10:49 Dose: 1 units Insulin Glargine (Lantus) 5 unit SC [facility] Last Admin: 05/30/18 21:59 Dose: 5 u Multivitamins (Hexavitamin) 1 tab PO DAILY [facility] Last Admin: 05/31/18 10:40 Dose: 1 tab Neomycin/Polymyxin/Bacitracin (Bacitracin/Neomycin/Polymyxin Opht Oint) 0 applic OD Q3H [facility] Stop: 06/06/18 19:46 Last Admin: 05/31/18 10:40 Dose: 1 applic Ondansetron HCl (Zofran Inj) 4 mg IVP Q6H PRN PRN Reason: Nausea/Vomiting Polyethylene Glycol (Miralax) 17 gm PO DAILY PRN PRN Reason: Constipation Rosuvastatin Calcium (Crestor) 5 mg PO HS [facility] Last Admin: 05/30/18 22:00 Dose: 5 mg Saccharomyces Boulardii (Florastor) 250 mg PO BID [facility] Last Admin: 05/31/18 10:40 Dose: 250 mg Sodium Bicarbonate (Sodium Bicarbonate Tab) 1,300 mg PO BID [facility] Last Admin: 05/31/18 10:45 Dose: 1,300 mg Thiamine HCl (Vitamin B1 Tab) 100 mg PO DAILY [facility] Last Admin: 05/31/18 10:40 Dose: 100 mg - Labs Labs: 05/31/18 11:36 05/30/18 07:58 APTT 55 SECONDS (21-34) H D 05/28/18 08:32 - Constitutional Appears: Non-toxic, Chronically Ill - Head Exam Head Exam: NORMOCEPHALIC - Eye Exam Eye Exam: absent: Scleral icterus - ENT Exam ENT Exam: Mucous Membranes Dry - Neck Exam Neck Exam: absent: Lymphadenopathy - Respiratory Exam Respiratory Exam: Decreased Breath Sounds - Cardiovascular Exam Cardiovascular Exam: REGULAR RHYTHM - GI/Abdominal Exam GI & Abdominal Exam: Distended, Soft Assessment and Plan (1) Bacteremia Status: Acute (2) Acute on chronic systolic (congestive) heart failure Status: Acute (3) CHF exacerbation Status: Acute (4) Dilated cardiomyopathy Status: Acute (5) NSTEMI (non-ST elevated myocardial infarction) Status: Acute (6) Sepsis Status: Acute - Assessment and Plan (Free Text) Assessment: will need INA
[2018-05-31 12:14] LABS: BANDS 1 % (0-2); EOSINOPHIL 3 % (0-4); LYMPHOCYTE 9 % (20-40); MONOCYTE 6 % (0-10); NEUTROPHIL 81 % (50-75); TOTAL CELLS COUNTED 100
[2018-05-31 12:15] LABS: PLATELET ESTIMATE NORMAL (NORMAL)
--- NOTE | 2018-05-31 14:47 | CP.PCM.PN ---
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 Hypertension control with meds as ordered. Maintain hemodynamics stable. Avoid hypotension. Patient not on ACEI/ARB due to recent EL Monitor Input/Output, daily weights and renal function with basic metabolic panel continue with lasix add sodium bicarb 1300 mg tid avoid correction in serum Na >6-8 meq/24 hrs Check urine analysis, spot protein/creatinine, albumin/creatinine ratio, urine for Na/OSmol, renal sonogram Check for 25-OH vitamin D, iPTH, phosphorus level. Dose meds/antibiotics for reduced GFR. Avoid fleets enema/magnesium based laxatives. Avoid nephrotoxins/NSAIDs/ iodinated contrast (unless needed emergent ly) Glycemic control Further work up for as per primary team Thanks for allowing me to participate in care of your patient. Will follow patient with you. Please call if any Qs. had d/w team Dr Max Chu Office: [phone] Subjective: Noted events overnight. Patients feels better Denies chest pain, palpitation, shortness of breath, leg swelling. All other negative Physical Examination: General Appearance: Comfortable, in no acute respiratory distress, co-operative . Vitals reviewed and noted as below Head; Atraumatic, normocephalic ENT: no ulcers no thrush. Tongue is midline. Oropharynx: no rash or ulcers. EYES: Pupils are equal, round and reactive to light accommodation. Eye muscles and extraocular movement intact. Sclera is anicteric. Neck; supple no lymphadenopathy, no thyromegaly or bruit Lungs: Normal respiratory rate/effort. Breath sounds bilateral reduced at bases with crackles Heart: Normal rate. s1s2 normal. No rub or gallop. Extremities: no edema. No varicose veins. Rt foot toe amputations in past with superificial scab Neurological: Patient is alert, awake and oriented to person, place and time. No focal deficit. Strength bilateral appropriate and equal Skin: Warm and dry. Normal turgor. No rash. Palpitation: Normal elasticity for age Abdomen: Abdomen is soft. Bowel sounds +. There is no abdominal tenderness, no g uarding/rigidity no organomegaly Psych: normal insight and normal affect/mood MSK: no joint tenderness or swelling. Digits and nails normal, no deformity : kidney or bladder not palpable. Labs/imaging reviewed. Past medical history, past surgical history, family history, social history, allergy reviewed and noted as below Family hx: no hx of CKD. Rest non-contributory HIV/Hep B and C neg UA 2+ blood and neg prot Objective - Vital Signs/Intake and Output Vital Signs (last 24 hours): Temp Pulse Resp BP Pulse Ox 97.7 F 70 20 129/78 96 05/31/18 09:30 05/31/18 11:28 05/31/18 09:30 05/31/18 10:41 05/31/18 09:30 Intake and Output: 05/31/18 05/31/18 06:59 18:59 Output Total 325 Balance -325 - Medications Medications: Current Medications Artificial Tears (Artificial Tears) 1 ml OU BID [facility] Last Admin: 05/31/18 10:41 Dose: 1 drop Aspirin (Aspirin Chewable) 81 mg PO DAILY [facility] Last Admin: 05/31/18 10:39 Dose: 81 mg Calcium Acetate (Phoslo) 667 mg PO BIDCC [facility] Last Admin: 05/31/18 10:40 Dose: 667 mg Carvedilol (Coreg) 12.5 mg PO BID [facility] Last Admin: 05/31/18 10:39 Dose: 12.5 mg Dextrose (Dextrose 50% Inj) 0 ml IV STAT PRN; Protocol PRN Reason: Hypoglycemia Protocol Dextrose (Glutose 15) 0 gm PO ONCE PRN; Protocol PRN Reason: Hypoglycemia Protocol Docusate Sodium (Colace) 100 mg PO DAILY [facility] Last Admin: 05/31/18 10:40 Dose: 100 mg Ergocalciferol (Drisdol 50,000 Intl Units Cap) 1 cap PO Q7D [facility] Famotidine (Pepcid) 20 mg PO DAILY [facility] Last Admin: 05/31/18 10:40 Dose: 20 mg Folic Acid (Folic Acid) 1 mg PO DAILY [facility] Last Admin: 05/31/18 10:40 Dose: 1 mg Furosemide (Lasix) 40 mg IVP DAILY [facility] Last Admin: 05/31/18 10:41 Dose: 40 mg Glucagon (Glucagen Diagnostic Kit) 0 mg IM STAT PRN; Protocol PRN Reason: Hypoglycemia Protocol Heparin Sodium (Porcine) (Heparin) 1,000 units IVP ONCE [facility] Dextrose (Dextrose 5% In Water 1000 Ml) 1,000 mls @ 0 mls/hr IV .Q0M PRN; Protocol PRN Reason: Hypoglycemia Protocol Piperacillin Sod/Tazobactam (Sod 2.25 gm/ Sodium Chloride) 100 mls @ 200 mls/hr IVPB Q8H [facility]; Protocol Last Admin: 05/31/18 13:36 Dose: 200 mls/hr Vancomycin/Sodium Chloride (Vancomycin 1 Gm/Ns 200 Ml) 1 gm in 200 mls @ 133 mls/hr IVPB DAILY [facility]; Protocol Stop: 06/05/18 10:01 Last Admin: 05/31/18 10:42 Dose: 133 mls/hr Insulin Aspart (Novolog) 0 unit SC [facility]; Protocol Last Admin: 05/31/18 13:37 Dose: 2 units Insulin Glargine (Lantus) 5 unit SC [facility] Last Admin: 05/30/18 21:59 Dose: 5 u Multivitamins (Hexavitamin) 1 tab PO DAILY [facility] Last Admin: 05/31/18 10:40 Dose: 1 tab Neomycin/Polymyxin/Bacitracin (Bacitracin/Neomycin/Polymyxin Opht Oint) 0 applic OD Q3H [facility] Stop: 06/06/18 19:46 Last Admin: 05/31/18 10:40 Dose: 1 applic Ondansetron HCl (Zofran Inj) 4 mg IVP Q6H PRN PRN Reason: Nausea/Vomiting Polyethylene Glycol (Miralax) 17 gm PO DAILY PRN PRN Reason: Constipation Rosuvastatin Calcium (Crestor) 5 mg PO HS [facility] Last Admin: 05/30/18 22:00 Dose: 5 mg Saccharomyces Boulardii (Florastor) 250 mg PO BID [facility] Last Admin: 05/31/18 10:40 Dose: 250 mg Sodium Bicarbonate (Sodium Bicarbonate Tab) 1,300 mg PO BID [facility] Last Admin: 05/31/18 10:45 Dose: 1,300 mg Thiamine HCl (Vitamin B1 Tab) 100 mg PO DAILY [facility] Last Admin: 05/31/18 10:40 Dose: 100 mg - Labs Labs: 05/31/18 11:36 05/31/18 11:36 APTT 55 SECONDS (21-34) H D 05/28/18 08:32
[2018-05-31] MEDS: Ergocalciferol 50,000 Intl Units Cap PO SCH (15:50)
--- NOTE | 2018-05-31 16:42 | CP.PCM.PN ---
Subjective - Date & Time of Evaluation Date of Evaluation: 05/31/18 Time of Evaluation: 16:42 - Subjective Subjective: Pt feels well. No complaints Objective - Vital Signs/Intake and Output Vital Signs (last 24 hours): Temp Pulse Resp BP Pulse Ox 97.7 F 65 20 129/78 96 05/31/18 09:30 05/31/18 16:33 05/31/18 09:30 05/31/18 10:41 05/31/18 09:30 Intake and Output: 05/31/18 05/31/18 06:59 18:59 Output Total 325 1200 Balance -325 -1200 - Medications Medications: Current Medications Artificial Tears (Artificial Tears) 1 ml OU BID [facility] Last Admin: 05/31/18 10:41 Dose: 1 drop Aspirin (Aspirin Chewable) 81 mg PO DAILY [facility] Last Admin: 05/31/18 10:39 Dose: 81 mg Calcium Acetate (Phoslo) 667 mg PO BIDCC [facility] Last Admin: 05/31/18 10:40 Dose: 667 mg Carvedilol (Coreg) 12.5 mg PO BID [facility] Last Admin: 05/31/18 10:39 Dose: 12.5 mg Dextrose (Dextrose 50% Inj) 0 ml IV STAT PRN; Protocol PRN Reason: Hypoglycemia Protocol Dextrose (Glutose 15) 0 gm PO ONCE PRN; Protocol PRN Reason: Hypoglycemia Protocol Docusate Sodium (Colace) 100 mg PO DAILY [facility] Last Admin: 05/31/18 10:40 Dose: 100 mg Ergocalciferol (Drisdol 50,000 Intl Units Cap) 1 cap PO Q7D [facility] Last Admin: 05/31/18 15:50 Dose: 1 cap Famotidine (Pepcid) 20 mg PO DAILY [facility] Last Admin: 05/31/18 10:40 Dose: 20 mg Folic Acid (Folic Acid) 1 mg PO DAILY [facility] Last Admin: 05/31/18 10:40 Dose: 1 mg Furosemide (Lasix) 40 mg IVP DAILY [facility] Last Admin: 05/31/18 10:41 Dose: 40 mg Glucagon (Glucagen Diagnostic Kit) 0 mg IM STAT PRN; Protocol PRN Reason: Hypoglycemia Protocol Heparin Sodium (Porcine) (Heparin) 1,000 units IVP ONCE [facility] Dextrose (Dextrose 5% In Water 1000 Ml) 1,000 mls @ 0 mls/hr IV .Q0M PRN; Protocol PRN Reason: Hypoglycemia Protocol Piperacillin Sod/Tazobactam (Sod 2.25 gm/ Sodium Chloride) 100 mls @ 200 mls/hr IVPB Q8H [facility]; Protocol Last Admin: 05/31/18 13:36 Dose: 200 mls/hr Vancomycin/Sodium Chloride (Vancomycin 1 Gm/Ns 200 Ml) 1 gm in 200 mls @ 133 mls/hr IVPB DAILY [facility]; Protocol Stop: 06/05/18 10:01 Last Admin: 05/31/18 10:42 Dose: 133 mls/hr Insulin Aspart (Novolog) 0 unit SC ACHS [facility]; Protocol Last Admin: 05/31/18 13:37 Dose: 2 units Insulin Glargine (Lantus) 5 unit SC [facility] Last Admin: 05/30/18 21:59 Dose: 5 u Multivitamins (Hexavitamin) 1 tab PO DAILY [facility] Last Admin: 05/31/18 10:40 Dose: 1 tab Neomycin/Polymyxin/Bacitracin (Bacitracin/Neomycin/Polymyxin Opht Oint) 0 applic OD Q3H [facility] Stop: 06/06/18 19:46 Last Admin: 05/31/18 15:50 Dose: 1 applic Ondansetron HCl (Zofran Inj) 4 mg IVP Q6H PRN PRN Reason: Nausea/Vomiting Polyethylene Glycol (Miralax) 17 gm PO DAILY PRN PRN Reason: Constipation Rosuvastatin Calcium (Crestor) 5 mg PO HS [facility] Last Admin: 05/30/18 22:00 Dose: 5 mg Saccharomyces Boulardii (Florastor) 250 mg PO BID [facility] Last Admin: 05/31/18 10:40 Dose: 250 mg Sodium Bicarbonate (Sodium Bicarbonate Tab) 1,300 mg PO TID [facility] Last Admin: 05/31/18 15:50 Dose: 1,300 mg Thiamine HCl (Vitamin B1 Tab) 100 mg PO DAILY [facility] Last Admin: 05/31/18 10:40 Dose: 100 mg - Labs Labs: 05/31/18 11:36 05/31/18 11:36 APTT 55 SECONDS (21-34) H D 05/28/18 08:32 - Constitutional Appears: Well - Head Exam Head Exam: NORMAL INSPECTION - Eye Exam Eye Exam: EOMI, Normal appearance, PERRL - ENT Exam ENT Exam: Mucous Membranes Moist, Normal Exam - Neck Exam Neck Exam: Normal Inspection - Respiratory Exam Respiratory Exam: Clear to Ausculation Bilateral, NORMAL BREATHING PATTERN - Cardiovascular Exam Cardiovascular Exam: REGULAR RHYTHM - GI/Abdominal Exam GI & Abdominal Exam: Soft, Normal Bowel Sounds - Exam External exam: NORMAL EXTERNAL EXAM - Extremities Exam Extremities Exam: Full ROM, Normal Inspection - Back Exam Back Exam: NORMAL INSPECTION - Neurological Exam Neurological Exam: Alert, Awake, CN II-XII Intact, Oriented x3 - Psychiatric Exam Psychiatric exam: Normal Mood - Skin Skin Exam: Dry, Warm Assessment and Plan - Assessment and Plan (Free Text) Assessment: 1. Gram pos cocci in blood cultures. INA requested. I notifed the lab and will perform tomorrow afternoon. 1. Cardiomyopathy, non ischemic: Will add hydralazine and nitrates.
[2018-05-31] MEDS: (Lantus) Insulin Glargine, Recombinant SC SCH (22:04)
--- NOTE | 2018-05-31 22:31 | CP.PCM.CON ---
History of Present Illness - History of Present Illness History of Present Illness: Podiatry Consult Note: Dr. Soler 48 year old male with PMHx of Uncontrolled IDDM, history of diabetic foot ulcer, left ventricular dysfunction status post biventricular ICD seen and evaluated for right foot chronic hyperkeratotic lesion. Patient states that he had the lesion for many years and states that it is decreasing in size over the years. Patient denies of any pain to the area. States that it occured after the amputation which was performed about 5 years ago. Denies of ever having the drainage from the site. Denies of having recent V/C/SOB/CP/headache. No other pedal complains at this time. PMHx: Uncontrolled IDDM, history of diabetic foot ulcer, left ventricular dysfunction status post biventricular ICD PSHx: R toe amputation x 3, appendicitis, left 5th toe partial amputation, AICD placement Allergies: NKDA SHx: Denies current or former use of tobacco and illicit drug use, occasional ETOH use, no illicit drug usage Review of Systems - Constitutional Constitutional: As Per HPI Past Patient History - Infectious Disease Hx of Infectious Diseases: None - Tetanus Immunizations Tetanus Immunization: Unknown - Past Medical History & Family History Past Medical History?: Yes - Past Social History Smoking Status: Never Smoked - CARDIAC Hx Hypercholesterolemia: Yes Hx Hypertension: Yes - PULMONARY Hx Respiratory Disorders: No - NEUROLOGICAL Hx Neurological Disorder: No - HEENT Hx HEENT Problems: No Hx Cataracts: Yes - RENAL Hx Chronic Kidney Disease: No - ENDOCRINE/METABOLIC Hx Diabetes Mellitus Type 1: Yes - HEMATOLOGICAL/ONCOLOGICAL Hx Blood Disorders: No - INTEGUMENTARY Hx Dermatological Problems: No - MUSCULOSKELETAL/RHEUMATOLOGICAL Hx Musculoskeletal Disorders: No Hx Falls: Yes - GASTROINTESTINAL Hx Gastrointestinal Disorders: No - GENITOURINARY/GYNECOLOGICAL Hx Genitourinary Disorders: No - PSYCHIATRIC Hx Substance Use: No - SURGICAL HISTORY Hx Surgeries: Yes Other/Comment: Right 3 digits amputation foot - ANESTHESIA Hx Anesthesia: Yes Hx Anesthesia Reactions: No Hx Malignant Hyperthermia: No Meds Allergies/Adverse Reactions: Allergies Allergy/AdvReac Type Severity Reaction Status Date / Time No Known Allergies Allergy Verified 05/27/18 12:15 - Medications Medications: Current Medications Artificial Tears (Artificial Tears) 1 ml OU BID [facility] Last Admin: 05/31/18 17:33 Dose: 1 drop Aspirin (Aspirin Chewable) 81 mg PO DAILY [facility] Last Admin: 05/31/18 10:39 Dose: 81 mg [facility] Last Admin: 05/31/18 17:33 Dose: 667 mg Carvedilol (Coreg) 12.5 mg PO BID [facility] Last Admin: 05/31/18 17:32 Dose: 12.5 mg Dextrose (Dextrose 50% Inj) 0 ml IV STAT PRN; Protocol PRN Reason: Hypoglycemia Protocol Dextrose (Glutose 15) 0 gm PO ONCE PRN; Protocol PRN Reason: Hypoglycemia Protocol Docusate Sodium (Colace) 100 mg PO DAILY [facility] Last Admin: 05/31/18 10:40 Dose: 100 mg Ergocalciferol (Drisdol 50,000 Intl Units Cap) 1 cap PO Q7D [facility] Last Admin: 05/31/18 15:50 Dose: 1 cap Famotidine (Pepcid) 20 mg PO DAILY [facility] Last Admin: 05/31/18 10:40 Dose: 20 mg Folic Acid (Folic Acid) 1 mg PO DAILY [facility] Last Admin: 05/31/18 10:40 Dose: 1 mg Furosemide (Lasix) 40 mg IVP DAILY [facility] Last Admin: 05/31/18 10:41 Dose: 40 mg Glucagon (Glucagen Diagnostic Kit) 0 mg IM STAT PRN; Protocol PRN Reason: Hypoglycemia Protocol Heparin Sodium (Porcine) (Heparin) 1,000 units IVP ONCE [facility] Hydralazine HCl (Apresoline) 25 mg PO TID [facility] Last Admin: 05/31/18 17:33 Dose: 25 mg Dextrose (Dextrose 5% In Water 1000 Ml) 1,000 mls @ 0 mls/hr IV .Q0M PRN; Protocol PRN Reason: Hypoglycemia Protocol Piperacillin Sod/Tazobactam (Sod 2.25 gm/ Sodium Chloride) 100 mls @ 200 mls/hr IVPB Q8H [facility]; Protocol Last Admin: 05/31/18 22:02 Dose: 200 mls/hr Vancomycin/Sodium Chloride (Vancomycin 1 Gm/Ns 200 Ml) 1 gm in 200 mls @ 133 mls/hr IVPB DAILY [facility]; Protocol Stop: 06/05/18 10:01 Last Admin: 05/31/18 10:42 Dose: 133 mls/hr Insulin Aspart (Novolog) 0 unit SC ACHS [facility]; Protocol Last Admin: 05/31/18 22:04 Dose: Not Given Insulin Glargine (Lantus) 5 unit SC HS [facility] Last Admin: 05/31/18 22:04 Dose: Not Given Isosorbide Mononitrate (Imdur Er) 30 mg PO DAILY [facility] Multivitamins (Hexavitamin) 1 tab PO DAILY [facility] Last Admin: 05/31/18 10:40 Dose: 1 tab Neomycin/Polymyxin/Bacitracin (Bacitracin/Neomycin/Polymyxin Opht Oint) 0 applic OD Q3H [facility] Stop: 06/06/18 19:46 Last Admin: 05/31/18 22:03 Dose: 0.5 inch Ondansetron HCl (Zofran Inj) 4 mg IVP Q6H PRN PRN Reason: Nausea/Vomiting Polyethylene Glycol (Miralax) 17 gm PO DAILY PRN PRN Reason: Constipation Rosuvastatin Calcium (Crestor) 5 mg PO HS [facility] Last Admin: 05/31/18 22:03 Dose: 5 mg Saccharomyces Boulardii (Florastor) 250 mg PO BID [facility] Last Admin: 05/31/18 17:33 Dose: 250 mg Sodium Bicarbonate (Sodium Bicarbonate Tab) 1,300 mg PO TID [facility] Last Admin: 05/31/18 17:33 Dose: 1,300 mg Thiamine HCl (Vitamin B1 Tab) 100 mg PO DAILY [facility] Last Admin: 05/31/18 10:40 Dose: 100 mg Physical Exam - Constitutional Appears: Well, Non-toxic, No Acute Distress - Extremities Exam Additional comments: Right lower extremity exam: VASC: DP/PT pulses faintly palpable, CFT <3 secs to all the digits, Temp gradient: warm to cool from proximal to distal, no pitting or non-pitting edema or erythema noted DERM: Hyperpigmented scaling plaque noted to dorsolateral forefoot at site of prior digital amputations 3-5, absent irregular margins. Hyperkeratosis is stably adhered to dermal base, no drainage, no erythema, no tunneling, no undermining, no probe to bone, no open lesions, no clinical signs of infection NEURO: protective sensation diminished to the foot ORTHO: no pain on palpation of the lesion - Neurological Exam Neurological exam: Alert, Oriented x3 - Psychiatric Exam Psychiatric exam: Normal Affect, Normal Mood Results - Vital Signs Recent Vital Signs: Last Vital Signs Temp 97.9 F 05/31/18 15:00 Pulse 61 11/27/18 19:55 Resp 20 05/31/18 15:00 BP 158/85 H 05/31/18 17:32 Pulse Ox 98 05/31/18 15:00 - Labs Result Diagrams: 05/31/18 11:36 05/31/18 11:36 Labs: Laboratory Results - last 24 hr 05/28/18 05/31/18 05/31/18 17:10 06:16 11:23 WBC RBC Hgb Hct MCV MCH MCHC RDW Plt Count MPV Neut % (Auto) Lymph % (Auto) Maries % (Auto) Eos % (Auto) Baso % (Auto) Neut # (Auto) Lymph # (Auto) Maries # (Auto) Eos # (Auto) Baso # (Auto) Neutrophils % (Manual) Band Neutrophils % Lymphocytes % (Manual) Monocytes % (Manual) Eosinophils % (Manual) Platelet Estimate Sodium Potassium Chloride Carbon Dioxide Anion Gap BUN Creatinine Est GFR ( Amer) Est GFR (Non-Af Amer) POC Glucose (mg/dL) 171 H 224 H Random Glucose Serum Osmolality Calcium Phosphorus Magnesium Total Bilirubin AST ALT Alkaline Phosphatase Total Protein Albumin Globulin Albumin/Globulin Ratio 25-OH Vitamin D Total Procalcitonin Cortisol AM Sample U Random Total Protein 2084 H 05/31/18 05/31/18 05/31/18 11:36 11:36 11:36 WBC 9.2 RBC 4.19 L Hgb 12.6 Hct 36.9 MCV 88.1 MCH 30.2 MCHC 34.3 RDW 14.0 Plt Count 169 MPV 10.5 Neut % (Auto) 79.2 H Lymph % (Auto) 9.3 L Maries % (Auto) 7.4 Eos % (Auto) 2.4 Baso % (Auto) 1.7 Neut # (Auto) 7.3 H Lymph # (Auto) 0.9 L Maries # (Auto) 0.7 Eos # (Auto) 0.2 Baso # (Auto) 0.2 Neutrophils % (Manual) 81 H Band Neutrophils % 1 Lymphocytes % (Manual) 9 L Monocytes % (Manual) 6 Eosinophils % (Manual) 3 Platelet Estimate Normal Sodium 130 L Potassium 3.5 L Chloride 96 L Carbon Dioxide 17 L Anion Gap 21 H BUN 91 H Creatinine 4.9 H Est GFR ( Amer) 15 Est GFR (Non-Af Amer) 13 POC Glucose (mg/dL) Random Glucose 187 H Serum Osmolality Calcium 7.9 L Phosphorus 5.6 H Magnesium 2.8 H Total Bilirubin 0.9 AST 32 ALT 51 Alkaline Phosphatase 106 Total Protein 7.0 Albumin 3.0 L Globulin 4.0 H Albumin/Globulin Ratio 0.8 L 25-OH Vitamin D Total Procalcitonin 8.30 H Cortisol AM Sample U Random Total Protein 05/31/18 05/31/18 05/31/18 11:36 11:36 11:36 WBC RBC Hgb Hct MCV MCH MCHC RDW Plt Count MPV Neut % (Auto) Lymph % (Auto) Maries % (Auto) Eos % (Auto) Baso % (Auto) Neut # (Auto) Lymph # (Auto) Maries # (Auto) Eos # (Auto) Baso # (Auto) Neutrophils % (Manual) Band Neutrophils % Lymphocytes % (Manual) Monocytes % (Manual) Eosinophils % (Manual) Platelet Estimate Sodium Potassium Chloride Carbon Dioxide Anion Gap BUN Creatinine Est GFR ( Amer) Est GFR (Non-Af Amer) POC Glucose (mg/dL) Random Glucose Serum Osmolality 316 H Calcium Phosphorus Magnesium Total Bilirubin AST ALT Alkaline Phosphatase Total Protein Albumin Globulin Albumin/Globulin Ratio 25-OH Vitamin D Total < 12.8 L Procalcitonin Cortisol AM Sample 29.7 H U Random Total Protein 05/31/18 05/31/18 16:10 21:24 WBC RBC Hgb Hct MCV MCH MCHC RDW Plt Count MPV Neut % (Auto) Lymph % (Auto) Maries % (Auto) Eos % (Auto) Baso % (Auto) Neut # (Auto) Lymph # (Auto) Maries # (Auto) Eos # (Auto) Baso # (Auto) Neutrophils % (Manual) Band Neutrophils % Lymphocytes % (Manual) Monocytes % (Manual) Eosinophils % (Manual) Platelet Estimate Sodium Potassium Chloride Carbon Dioxide Anion Gap BUN Creatinine Est GFR ( Amer) Est GFR (Non-Af Amer) POC Glucose (mg/dL) 190 H 251 H Random Glucose Serum Osmolality Calcium Phosphorus Magnesium Total Bilirubin AST ALT Alkaline Phosphatase Total Protein Albumin Globulin Albumin/Globulin Ratio 25-OH Vitamin D Total Procalcitonin Cortisol AM Sample U Random Total Protein Assessment & Plan - Assessment and Plan (Free Text) Assessment: 48 year old male with extensive PMHx evaluated for right foot hyperkeratotic lesion vs. verrucous lesion Plan: Patient seen and evaluated Discussed plan with attending Dr. Soler Labs, vitals and charts reviewed -afebrile, no leukocytosis Site debrided using # 15 blade - Tolerated the procedure well, no reported incidents Lesion is firmly adhered to the base and unable to fully debride due to the thickness Less likely of bacteremia/sepsis from the site No surgical intervention needed at this time Patient is stable from podiatry standpoint - please re-consult if needed Thank you for the podiatry consult and allowing to take part in patient care - Date & Time Date: 05/31/18 Time: 17:25
[2018-06-01] MEDS: Bacitracin/Neomycin/Polymyxin OPHT OINT OD SCH ×10 (01:45→22:00)
[2018-06-01] MEDS: Piperacillin/Tazobact 2.25 GM in Sodium Chloride 100 ML IVPB SCH ×2 (05:37→21:41)
--- NOTE | 2018-06-01 06:26 | CP.PCM.PN ---
<Luisa Damon - Last Filed: 06/01/18 19:58> Subjective - Date & Time of Evaluation Date of Evaluation: 06/01/18 Time of Evaluation: 07:30 - Subjective Subjective: PGY-1 Danielle Rodriguez Medicine progress note for Dr. Damir Conti's service: nursing informatics clinical analyst: nurse Fofana Patient was seen and examined this morning. He is NPO for INA today. No acute complaints. His right eye is feeling better. He has a good appetite and nausea is improved. Objective - Vital Signs/Intake and Output Vital Signs (last 24 hours): Temp Pulse Resp BP Pulse Ox 97.9 F 63 20 159/79 H 95 05/31/18 23:50 05/31/18 23:50 05/31/18 23:50 05/31/18 23:50 05/31/18 23:50 Intake and Output: 05/31/18 06/01/18 18:59 06:59 Intake Total 200 Output Total 1200 Balance -1200 200 - Medications Medications: Current Medications Artificial Tears (Artificial Tears) 1 ml OU BID [facility] Last Admin: 05/31/18 17:33 Dose: 1 drop Aspirin (Aspirin Chewable) 81 mg PO DAILY [facility] Last Admin: 05/31/18 10:39 Dose: 81 mg Calcium Acetate (Phoslo) 667 mg PO BIDCC [facility] Last Admin: 05/31/18 17:33 Dose: 667 mg Carvedilol (Coreg) 12.5 mg PO BID [facility] Last Admin: 05/31/18 17:32 Dose: 12.5 mg Dextrose (Dextrose 50% Inj) 0 ml IV STAT PRN; Protocol PRN Reason: Hypoglycemia Protocol Dextrose (Glutose 15) 0 gm PO ONCE PRN; Protocol PRN Reason: Hypoglycemia Protocol Docusate Sodium (Colace) 100 mg PO DAILY [facility] Last Admin: 05/31/18 10:40 Dose: 100 mg Ergocalciferol (Drisdol 50,000 Intl Units Cap) 1 cap PO Q7D [facility] Last Admin: 05/31/18 15:50 Dose: 1 cap Famotidine (Pepcid) 20 mg PO DAILY [facility] Last Admin: 05/31/18 10:40 Dose: 20 mg Folic Acid (Folic Acid) 1 mg PO DAILY [facility] Last Admin: 05/31/18 10:40 Dose: 1 mg Furosemide (Lasix) 40 mg IVP DAILY [facility] Last Admin: 05/31/18 10:41 Dose: 40 mg Glucagon (Glucagen Diagnostic Kit) 0 mg IM STAT PRN; Protocol PRN Reason: Hypoglycemia Protocol Heparin Sodium (Porcine) (Heparin) 1,000 units IVP ONCE [facility] Hydralazine HCl (Apresoline) 25 mg PO TID [facility] Last Admin: 05/31/18 17:33 Dose: 25 mg Dextrose (Dextrose 5% In Water 1000 Ml) 1,000 mls @ 0 mls/hr IV .Q0M PRN; Protocol PRN Reason: Hypoglycemia Protocol Piperacillin Sod/Tazobactam (Sod 2.25 gm/ Sodium Chloride) 100 mls @ 200 mls/hr IVPB Q8H [facility]; Protocol Last Admin: 06/01/18 05:37 Dose: 200 mls/hr Vancomycin/Sodium Chloride (Vancomycin 1 Gm/Ns 200 Ml) 1 gm in 200 mls @ 133 mls/hr IVPB DAILY [facility]; Protocol Stop: 06/05/18 10:01 Last Admin: 05/31/18 10:42 Dose: 133 mls/hr Insulin Aspart (Novolog) 0 unit SC [facility]; Protocol Last Admin: 05/31/18 22:04 Dose: Not Given Insulin Glargine (Lantus) 5 unit SC [facility] Last Admin: 05/31/18 22:04 Dose: Not Given Isosorbide Mononitrate (Imdur Er) 30 mg PO DAILY [facility] Multivitamins (Hexavitamin) 1 tab PO DAILY [facility] Last Admin: 05/31/18 10:40 Dose: 1 tab Neomycin/Polymyxin/Bacitracin (Bacitracin/Neomycin/Polymyxin Opht Oint) 0 applic OD Q3H [facility] Stop: 06/06/18 19:46 Last Admin: 06/01/18 05:50 Dose: Not Given Ondansetron HCl (Zofran Inj) 4 mg IVP Q6H PRN PRN Reason: Nausea/Vomiting Polyethylene Glycol (Miralax) 17 gm PO DAILY PRN PRN Reason: Constipation Rosuvastatin Calcium (Crestor) 5 mg PO HS [facility] Last Admin: 05/31/18 22:03 Dose: 5 mg Saccharomyces Boulardii (Florastor) 250 mg PO BID [facility] Last Admin: 11/27/18 17:33 Dose: 250 mg Sodium Bicarbonate (Sodium Bicarbonate Tab) 1,300 mg PO TID [facility] Last Admin: 05/31/18 17:33 Dose: 1,300 mg Thiamine HCl (Vitamin B1 Tab) 100 mg PO DAILY [facility] Last Admin: 05/31/18 10:40 Dose: 100 mg - Labs Labs: 05/31/18 11:36 05/31/18 11:36 APTT 55 SECONDS (21-34) H D 05/28/18 08:32 - Constitutional Appears: No Acute Distress, Unkempt - Head Exam Head Exam: ATRAUMATIC, NORMAL INSPECTION - Eye Exam Eye Exam: Conjunctival injection (R eye- improved) - ENT Exam ENT Exam: Mucous Membranes Moist - Neck Exam Neck Exam: Normal Inspection - Respiratory Exam Respiratory Exam: Clear to Ausculation Bilateral, NORMAL BREATHING PATTERN - Cardiovascular Exam Cardiovascular Exam: REGULAR RHYTHM, +S1, +S2 - GI/Abdominal Exam GI & Abdominal Exam: Soft. absent: Tenderness - Rectal Exam Rectal Exam: Deferred - Extremities Exam Additional comments: R foot- brown overgrowth of hardened skin at site of previous lateral 3 toe amputation - Neurological Exam Neurological Exam: Alert, Awake, CN II-XII Intact, Oriented x3 - Psychiatric Exam Psychiatric exam: Normal Affect, Normal Mood - Skin Skin Exam: Dry, Normal Color, Warm Assessment and Plan - Assessment and Plan (Free Text) Assessment: Patient is a 48 yo male with a history of uncontrolled T2DM and CHF s/p AICD who presented with generalized weakness and falls. Required ICU admission for 1 day due to hypotension- no pressors. Now much clinically improved and downgraded to telemetry unit. Patient's initial blood Cx grew micrococcus species. Repeat blood Cx continue to grow GPC. Pending INA and bone scans to evaluate source of bactreremia. Plan: Sepsis with Gram positive bacteremia (Micrococcus)- suspect osteomyelitis due to R foot amputation site and/or L anterior tibia ulceration and/or endocarditis - Most recent fever 05/27 100.7 - Leukocytosis and bandemia resolved - Lactate 1.8 - Procal 27.53->8.3 - ESR 72 - CXR: no active disease - TTE: no vegetations - NIA pending - Blood Cx: Micrococcus species x2 - Repeat Blood Cx: GPC x4 - Urine, stool Cx no growth - R foot XR: no evidence of osteomyelitis - F/u punch biopsies - Certec scan negative - LE arterial and venous studies: no significant abnormalities per vasc surgery - 3 view bone scans of b/l LEs pending - Zosyn 2.25 mg IV Q8H- started 05/29 - Vancomycin 1 g IV daily- started 05/30 - Florastor 250 mg PO BID - ICU consulted - Surgery consulted (James)- no intervention - ID consulted (Charly) - Podiatry consulted (Ryder)- no intervention at this time - PT/OT Renal insufficiency, worsening- suspect ATN due to sepsis and/or CHF in addition to CKD from DM and HTN - BUN 37->87 - Cr 1.6->5.1 - Avoid ACEI/ARB and other nephrotoxic drugs - Renally dose meds - Maintain normotension - No IVF due to CHF - Nephrology consulted (Junior)- no need for dialysis yet but will continue to follow Elevated troponin, improved- h/o nonischemic cardiomyopathy (cath 10/19), suspect 2/2 kidney disease, doubt NSTEMI - Trop: 0.17->0.233->0.222 - EKG: no ST elevations, ventricular-paced rhythm - Cardiology consulted (Hupart)- no heparin or Plavix Elevated D-dimer (1468)- suspect 2/2 kidney disease - V/Q scan pending - Cannot get CTA due to kidney function Hyponatremia, resolved - Avoid correction >6-8 mEq/24 hrs - TSH low (0.31), T4 wnl (1.5) - Serum osm 316 - Urine osm 281 - Urine Na 27, K 6.4 - AM cortisol elevated 29.7 - Sodium bicarb 1300 mg PO TID Systolic heart failure (HFrEF)- s/p AICD - BNP 11,300 - Echo: EF 26% - Strict I's & O's - Daily weights - Fluid restriction <1200 mL/day - b/l lower lung field rales - CXR 05/29: no active disease - ASA 81 mg PO daily - Coreg 12.5 mg PO BID - Lasix 40 mg IV daily - Hydralazine 25 mg PO TID - Isosorbide nitrate 30 mg PO daily - Cardiology consulted (Hupart) Thrombocytopenia, resolved- suspect 2/2 kidney disease - Monitor CBC - Hepatitis negative - HIV negative Secondary hyperparathyroidism- 2/2 kidney disease - Elevated PTH (153) - Low Ca (7) - Elevated Ph (5.2) - Low Vit D (<12.5) - Phoslo 667 mg PO BID - Ergocalciferol 50,000 QWK Type 2 diabetes mellitus - A1c 7.8 - Hypoglycemia protocol - Accuchecks ACHS with ISS - Increase Lantus to 14 units SC QHS - Start Aspart 3 u AC R eye conjunctivitis, improving - Artificial tears BID - Bacitracin/Neomycin/polymyxin OD Q3H while awake x7 days - Ophthalmology consulted (Doron) Dyslipidemia - Choles 112, LDL<30, HDL 12, TG 320-765 (suspect 2nd value is not fasting) - Crestor 5 mg PO QHS Constipation - Miralax 17 g PO daily PRN - Colace 100 mg PO daily Ppx: VTE: heparin 5000 u SC Q12H GI: Pepcid 20 mg PO daily Code status: full code Case was discussed with attending, Dr. Damir Conti. <Damir Conti J - Last Filed: 06/02/18 00:26> Objective - Vital Signs/Intake and Output Vital Signs (last 24 hours): Temp Pulse Resp BP Pulse Ox 97.3 F L 88 20 99/66 L 95 06/01/18 17:30 06/01/18 18:00 06/01/18 17:30 06/01/18 17:42 06/01/18 17:30 - Medications Medications: Current Medications Artificial Tears (Artificial Tears) 1 ml OU BID [facility] Last Admin: 06/01/18 18:01 Dose: 1 drop Aspirin (Aspirin Chewable) 81 mg PO DAILY [facility] Last Admin: 06/01/18 10:26 Dose: Not Given Calcium Acetate (Phoslo) 667 mg PO BIDCC [facility] Last Admin: 06/01/18 18:01 Dose: 667 mg Carvedilol (Coreg) 12.5 mg PO BID [facility] Last Admin: 06/01/18 17:42 Dose: Not Given Dextrose (Dextrose 50% Inj) 0 ml IV STAT PRN; Protocol PRN Reason: Hypoglycemia Protocol Dextrose (Glutose 15) 0 gm PO ONCE PRN; Protocol PRN Reason: Hypoglycemia Protocol Docusate Sodium (Colace) 100 mg PO DAILY [facility] Last Admin: 06/01/18 10:26 Dose: Not Given Ergocalciferol (Drisdol 50,000 Intl Units Cap) 1 cap PO Q7D [facility] Last Admin: 05/31/18 15:50 Dose: 1 cap Famotidine (Pepcid) 20 mg PO DAILY [facility] Last Admin: 06/01/18 10:27 Dose: Not Given Folic Acid (Folic Acid) 1 mg PO DAILY [facility] Last Admin: 06/01/18 10:27 Dose: Not Given Furosemide (Lasix) 40 mg IVP DAILY [facility] Last Admin: 06/01/18 10:31 Dose: 40 mg Glucagon (Glucagen Diagnostic Kit) 0 mg IM STAT PRN; Protocol PRN Reason: Hypoglycemia Protocol Heparin Sodium (Porcine) (Heparin) 1,000 units IVP ONCE [facility] Heparin Sodium (Porcine) (Heparin) 5,000 units SC Q12 [facility] Last Admin: 06/01/18 21:38 Dose: 5,000 units Hydralazine HCl (Apresoline) 25 mg PO TID [facility] Last Admin: 06/01/18 17:42 Dose: Not Given Dextrose (Dextrose 5% In Water 1000 Ml) 1,000 mls @ 0 mls/hr IV .Q0M PRN; Protocol PRN Reason: Hypoglycemia Protocol Piperacillin Sod/Tazobactam (Sod 2.25 gm/ Sodium Chloride) 100 mls @ 200 mls/hr IVPB Q8H [facility]; Protocol Last Admin: 06/01/18 21:41 Dose: 200 mls/hr Vancomycin/Sodium Chloride (Vancomycin 1 Gm/Ns 200 Ml) 1 gm in 200 mls @ 133 mls/hr IVPB DAILY [facility]; Protocol Stop: 06/05/18 10:01 Last Admin: 06/01/18 10:32 Dose: 133 mls/hr Insulin Aspart (Novolog) 0 unit SC ACHS [facility]; Protocol Last Admin: 06/01/18 21:33 Dose: Not Given Insulin Aspart (Novolog Mix 70/30 (70/30 Units/Ml)) 3 units SC AC [facility] Insulin Glargine (Lantus) 14 unit SC HS [facility] Last Admin: 06/01/18 21:37 Dose: 14 u Isosorbide Mononitrate (Imdur Er) 30 mg PO DAILY [facility] Multivitamins (Hexavitamin) 1 tab PO DAILY [facility] Last Admin: 06/01/18 10:27 Dose: Not Given Neomycin/Polymyxin/Bacitracin (Bacitracin/Neomycin/Polymyxin Opht Oint) 0 applic OD Q3H [facility] Stop: 06/06/18 19:46 Last Admin: 06/01/18 22:00 Dose: 0.5 inch Ondansetron HCl (Zofran Inj) 4 mg IVP Q6H PRN PRN Reason: Nausea/Vomiting Polyethylene Glycol (Miralax) 17 gm PO DAILY PRN PRN Reason: Constipation Rosuvastatin Calcium (Crestor) 5 mg PO HS [facility] Last Admin: 06/01/18 21:37 Dose: 5 mg Saccharomyces Boulardii (Florastor) 250 mg PO BID [facility] Last Admin: 06/01/18 18:01 Dose: 250 mg Sodium Bicarbonate (Sodium Bicarbonate Tab) 1,300 mg PO TID [facility] Last Admin: 06/01/18 18:01 Dose: 1,300 mg Thiamine HCl (Vitamin B1 Tab) 100 mg PO DAILY [facility] Last Admin: 06/01/18 10:27 Dose: Not Given - Labs Labs: 06/01/18 07:44 06/01/18 07:44 APTT 55 SECONDS (21-34) H D 05/28/18 08:32 Attending/Attestation - Attestation I have personally seen and examined this patient.: Yes I have fully participated in the care of the patient.: Yes I have reviewed all pertinent clinical information, including history, physical exam and plan: Yes Notes (Text): 06/02/18 00:16 This patient was seen at 7:00 PM 06/01/18 Care of this patient was discussed with resident Dr. Damon. Certec WBC Scan 05/30/18 was negative Blood Culture 05/30/18 and 05/28/18 show Gram + Cocci. F/U sensitivities INA performed 06/01/18 shows NO vegetations Follow up performance of 3 Phase Bone Scan of bilateral lower legs and feet on 06/02/18 to rule out the possibility of osteomyelitis. Currently on Vanco and Zosyn. Follow up punch biopsy 06/01/18 of the Right Foot Mass at sight of prior amputations (present for at least 2 years as per patient. Podiatry felt that this was either Hyperkeratosis vs Verrucous lesion. Medicine Team wanted to make sure therefore biopsy was performed by Medicine Team) V/Q Scan of Lungs shows low probability of PE Follow up with Demand Planning Manager Dr. Chu on 06/02/18 for worsening renal function. Is HD needed? Patient is on Fluid Restriction for the Hyponatremia As platelets have now normalized, Heparin 5,000 Units SC 2x/day has been r estarted for DVT prophylaxis. Please keep an eye on the platelets. Insulin has been adjusted starting on night of 06/01/18. Lantus 14 units SC HS and Aspart Insulin 3 units SC AC meals. Please adjust if needed on Wednesday morning 06/03/18. Care of this patient was gone over in detail with patient permission with his , Son Dong, and Son Keon (who was on speaker phone) on 06/01/18 and they were updated as to plan. Damir Conti D.O.
[2018-06-01 07:52] LABS: BASO # 0.1 K/uL (0.0-0.2); BASO % 1.2 % (0.0-2.0); EOS # 0.3 K/uL (0.0-0.7); LYMPH % 11.2 % (20.0-40.0); MEAN CELL VOLUME 89.1 fL (80.0-94.0); MEAN CORPUSCULAR HEMOGLOBIN 30.8 pg (27.0-31.0); MEAN CORPUSCULAR HGB CONC 34.5 g/dL (33.0-37.0); MEAN PLATELET VOLUME 10.2 fL (7.2-11.7); MONO # 0.9 K/uL (0.0-0.8); MONO % 9.4 % (0.0-10.0); NEUT # 6.8 K/uL (1.8-7.0); NEUT % 75.2 % (50.0-75.0); RBC 4.23 Mil/uL (4.40-5.90); RED CELL DISTRIBUTION WIDTH 13.9 % (11.5-14.5); WHITE BLOOD COUNT 9.1 K/uL (4.8-10.8)
[2018-06-01] MEDS: (Novolog) Insulin Aspart, Recombinant 100 u/ml 10 ml vial SC SCH ×4 (08:11→21:33)
[2018-06-01 08:12] LABS: ALB/GLOB RATIO 0.8 (1.0-2.1); ALBUMIN 3.1 g/dL (3.5-5.0); CALCIUM 7.9 mg/dl (8.6-10.4)
[2018-06-01] MEDS ORDERED: Potassium Chloride 20 mEq ER Tab PO ONE (09:33)
[2018-06-01] MEDS: Saccharomyces Boulardi 250 mg Cap PO SCH ×2 (10:27→18:01)
[2018-06-01] MEDS: Multiple Vitamins Tab PO SCH (10:27)
[2018-06-01] MEDS: Vancomycin 1 gm/NS 200 ml 1 GM/200 ML BAG IVPB SCH (10:32)
[2018-06-01] MEDS: Aritificial Tears (15ml) OU SCH ×2 (10:32→18:01)
--- NOTE | 2018-06-01 11:49 | VASCLAB ---
Date of service: 05/31/2018 PROCEDURE: Lower Extremity Venous Duplex Exam. HISTORY: DVT PRIORS: None. TECHNIQUE: Bilateral common femoral, femoral, popliteal and posterior tibial, peroneal and great saphenous veins were evaluated. Flow was assessed with color Doppler, compressibility, assessment of phasic flow and augmentation response. Report prepared by HO Klein, RVT FINDINGS: RIGHT: 1. Common Femoral Vein: 1.1. Compressibility - Fully compressible: Thrombus - None : Flow - Phasic: Augmentation -Normal: Reflux - None. 2. Femoral Vein: 2.1. Compressibility - Fully compressible: Thrombus - None : Flow - Phasic: Augmentation -Normal: Reflux - None. 3. Popliteal Vein: 3.1. Compressibility - Fully compressible: Thrombus - None : Flow - Phasic: Augmentation -Normal: Reflux - Moderate>3.30s 4. Posterior Tibial Vein: 4.1. Compressibility - Fully compressible: Thrombus - None: Flow - Phasic: Augmentation -Normal: Reflux - None. 5. Peroneal Vein: 5.1. Compressibility - Fully compressible: Thrombus - None: Flow - Phasic: Augmentation -Normal: Reflux - None. 6. Great Saphenous Vein: 6.1. Compressibility - Fully compressible: Thrombus - None: Flow - Phasic: Augmentation - Normal: Reflux - None. LEFT: 1. Common Femoral Vein: 1.1. Compressibility - Fully compressible: Thrombus - None: Flow - Phasic: Augmentation -Normal: Reflux - None. 2. Femoral Vein: 2.1. Compressibility - Fully compressible: Thrombus - None: Flow - Phasic: Augmentation -Normal: Reflux - None. 3. Popliteal Vein: 3.1. Compressibility - Fully compressible: Thrombus - None : Flow - Phasic: Augmentation -Normal: Reflux - None. 4. Posterior Tibial Vein: 4.1. Compressibility - Fully compressible: Thrombus - None: Flow - Phasic: Augmentation -Normal: Reflux - None. 5. Peroneal Vein: 5.1. Compressibility - Fully compressible: Thrombus - None: Flow - Phasic: Augmentation -Normal: Reflux - None. 6. Great Saphenous Vein: 6.1. Compressibility - Fully compressible: Thrombus - None: Flow - Phasic: Augmentation - Normal: Reflux - None. OTHER FINDINGS: None. IMPRESSION: Right: No evidence of deep or superficial vein thrombosis of the right lower extremity. Valvular incompetence noted of the popliteal vein. Left: No evidence of deep or superficial vein thrombosis of the left lower extremity. Normal valve function noted of the left side.
[2018-06-01] MEDS ORDERED: Lidocaine 4% (Laryng-O-Jet) Kit MM ONE (12:28)
[2018-06-01] MEDS ORDERED: Midazolam 2 MG/2 ML VIAL ONE (13:27)
[2018-06-01] MEDS ORDERED: Propofol 10 mg/ml Inj (20 ML) ONE (13:27)
--- NOTE | 2018-06-01 13:52 | CP.PCM.PN ---
Subjective - Date & Time of Evaluation Date of Evaluation: 06/01/18 Time of Evaluation: 13:50 - Subjective Subjective: The patient feels well. Had INA. INA demonstrated only moderately reduced LV EF. No vegetation on any of the valves or PPm wires. Objective - Vital Signs/Intake and Output Vital Signs (last 24 hours): Temp Pulse Resp BP Pulse Ox 97.7 F 66 20 153/82 H 96 06/01/18 08:00 06/01/18 08:00 06/01/18 08:00 06/01/18 10:31 06/01/18 08:00 Intake and Output: 06/01/18 06/01/18 06:59 18:59 Intake Total 200 Balance 200 - Medications Medications: Current Medications Artificial Tears (Artificial Tears) 1 ml OU BID [facility] Last Admin: 06/01/18 10:32 Dose: 1 drop Aspirin (Aspirin Chewable) 81 mg PO DAILY [facility] Last Admin: 06/01/18 10:26 Dose: Not Given Calcium Acetate (Phoslo) 667 mg PO BIDCC [facility] Last Admin: 06/01/18 08:12 Dose: Not Given Carvedilol (Coreg) 12.5 mg PO BID [facility] Last Admin: 06/01/18 10:26 Dose: Not Given Dextrose (Dextrose 50% Inj) 0 ml IV STAT PRN; Protocol PRN Reason: Hypoglycemia Protocol Dextrose (Glutose 15) 0 gm PO ONCE PRN; Protocol PRN Reason: Hypoglycemia Protocol Docusate Sodium (Colace) 100 mg PO DAILY [facility] Last Admin: 06/01/18 10:26 Dose: Not Given Ergocalciferol (Drisdol 50,000 Intl Units Cap) 1 cap PO Q7D [facility] Last Admin: 05/31/18 15:50 Dose: 1 cap Famotidine (Pepcid) 20 mg PO DAILY [facility] Last Admin: 06/01/18 10:27 Dose: Not Given Folic Acid (Folic Acid) 1 mg PO DAILY [facility] Last Admin: 06/01/18 10:27 Dose: Not Given Furosemide (Lasix) 40 mg IVP DAILY [facility] Last Admin: 06/01/18 10:31 Dose: 40 mg Glucagon (Glucagen Diagnostic Kit) 0 mg IM STAT PRN; Protocol PRN Reason: Hypoglycemia Protocol Heparin Sodium (Porcine) (Heparin) 1,000 units IVP ONCE [facility] Hydralazine HCl (Apresoline) 25 mg PO TID [facility] Last Admin: 06/01/18 10:26 Dose: Not Given Dextrose (Dextrose 5% In Water 1000 Ml) 1,000 mls @ 0 mls/hr IV .Q0M PRN; Protocol PRN Reason: Hypoglycemia Protocol Piperacillin Sod/Tazobactam (Sod 2.25 gm/ Sodium Chloride) 100 mls @ 200 mls/hr IVPB Q8H [facility]; Protocol Last Admin: 06/01/18 05:37 Dose: 200 mls/hr Vancomycin/Sodium Chloride (Vancomycin 1 Gm/Ns 200 Ml) 1 gm in 200 mls @ 133 mls/hr IVPB DAILY [facility]; Protocol Stop: 06/05/18 10:01 Last Admin: 06/01/18 10:32 Dose: 133 mls/hr Insulin Aspart (Novolog) 0 unit SC ACHS [facility]; Protocol Last Admin: 06/01/18 12:00 Dose: Not Given Insulin Glargine (Lantus) 5 unit SC [facility] Last Admin: 05/31/18 22:04 Dose: Not Given Isosorbide Mononitrate (Imdur Er) 30 mg PO DAILY [facility] Multivitamins (Hexavitamin) 1 tab PO DAILY [facility] Last Admin: 06/01/18 10:27 Dose: Not Given Neomycin/Polymyxin/Bacitracin (Bacitracin/Neomycin/Polymyxin Opht Oint) 0 appl ic OD Q3H [facility] Stop: 06/06/18 19:46 Last Admin: 06/01/18 13:39 Dose: Not Given Ondansetron HCl (Zofran Inj) 4 mg IVP Q6H PRN PRN Reason: Nausea/Vomiting Polyethylene Glycol (Miralax) 17 gm PO DAILY PRN PRN Reason: Constipation Rosuvastatin Calcium (Crestor) 5 mg PO HS [facility] Last Admin: 05/31/18 22:03 Dose: 5 mg Saccharomyces Boulardii (Florastor) 250 mg PO BID [facility] Last Admin: 06/01/18 10:27 Dose: Not Given Sodium Bicarbonate (Sodium Bicarbonate Tab) 1,300 mg PO TID [facility] Last Admin: 06/01/18 10:27 Dose: Not Given Thiamine HCl (Vitamin B1 Tab) 100 mg PO DAILY [facility] Last Admin: 06/01/18 10:27 Dose: Not Given - Labs Labs: 06/01/18 07:44 06/01/18 07:44 APTT 55 SECONDS (21-34) H D 05/28/18 08:32 - Constitutional Appears: Well, Non-toxic - Head Exam Head Exam: NORMAL INSPECTION - Eye Exam Eye Exam: EOMI Pupil Exam: NORMAL ACCOMODATION - ENT Exam ENT Exam: Mucous Membranes Moist - Neck Exam Neck Exam: Full ROM - Respiratory Exam Respiratory Exam: Clear to Ausculation Bilateral - Cardiovascular Exam Cardiovascular Exam: REGULAR RHYTHM - Exam External exam: NORMAL EXTERNAL EXAM - Extremities Exam Extremities Exam: Normal Inspection - Back Exam Back Exam: NORMAL INSPECTION - Neurological Exam Neurological Exam: Alert, Awake, Oriented x3 - Psychiatric Exam Psychiatric exam: Normal Affect, Normal Mood - Skin Skin Exam: Normal Color Assessment and Plan - Assessment and Plan (Free Text) Assessment: 1. HTN: pt has been npo: hydralazine/nitrates added to beta olman. Advance either med if needed for HTN 2. LV EF appears moderately , not severely reduced. 3. No sig pulm HTN. 4. No vegetations noted.
--- NOTE | 2018-06-01 15:24 | CP.PCM.PN ---
Subjective - Date & Time of Evaluation Date of Evaluation: 06/01/18 Time of Evaluation: 15:23 - Subjective Subjective: Nephrology Consultation Note Assessment: Stable non-oliguric Acute Kidney Injury (N17.9) likely due to ATN due to sepsis Diabetic chronic Kidney Disease (E11.22) Hypertensive Chronic Kidney Disease (I12.9) Chronic Kidney Disease (N18.2) Stage 2 without proteinuria (R80.9) likely due to previous AKIs severe sys CHF s/p AICD hypervolemic Hyponatremia likely due to CHF and EL, metabolic acidosis vit D def Plan No acute need for renal replacement therapy at this time but may need it and will need close follow up. Hypertension control with meds as ordered. Maintain hemodynamics stable. Avoid hypotension. Patient not on ACEI/ARB due to recent EL meds for CHF being optimized by cardiology Monitor Input/Output, daily weights and renal function with basic metabolic panel continue with lasix added sodium bicarb 1300 mg tid avoid correction in serum Na >6-8 meq/24 hrs on weekly Vit D Check urine analysis, spot protein/creatinine, albumin/creatinine ratio, urine for Na/OSmol, renal sonogram Check for 25-OH vitamin D, iPTH, phosphorus level. will check c3/c4/anca as well Dose meds/antibiotics for reduced GFR. Avoid fleets enema/magnesium based laxatives. Avoid nephrotoxins/NSAIDs/ iodinated contrast (unless needed emergen tly) Glycemic control Further work up for as per primary team Thanks for allowing me to participate in care of your patient. Will follow patient with you. Please call if any Qs. had d/w team Dr Max Chu Office: [phone] Subjective: Noted events overnight. Patients feels better Denies chest pain, palpitation, shortness of breath, leg swelling. All other negative Physical Examination: General Appearance: Comfortable, in no acute respiratory distress, co-operative . Vitals reviewed and noted as below Head; Atraumatic, normocephalic ENT: no ulcers no thrush. Tongue is midline. Oropharynx: no rash or ulcers. EYES: Pupils are equal, round and reactive to light accommodation. Eye muscles and extraocular movement intact. Sclera is anicteric. Neck; supple no lymphadenopathy, no thyromegaly or bruit Lungs: Normal respiratory rate/effort. Breath sounds bilateral reduced at bases with crackles Heart: Normal rate. s1s2 normal. No rub or gallop. Extremities: no edema. No varicose veins. Rt foot toe amputations in past with superificial scab Neurological: Patient is alert, awake and oriented to person, place and time. No focal deficit. Strength bilateral appropriate and equal Skin: Warm and dry. Normal turgor. No rash. Palpitation: Normal elasticity for age Abdomen: Abdomen is soft. Bowel sounds +. There is no abdominal tenderness, no guarding/rigidity no organomegaly Psych: normal insight and normal affect/mood MSK: no joint tenderness or swelling. Digits and nails normal, no deformity : kidney or bladder not palpable. Labs/imaging reviewed. Past medical history, past surgical history, family history, social history, allergy reviewed and noted as below Family hx: no hx of CKD. Rest non-contributory HIV/Hep B and C neg UA 2+ blood and neg prot Objective - Vital Signs/Intake and Output Vital Signs (last 24 hours): Temp Pulse Resp BP Pulse Ox 97.7 F 66 20 153/82 H 96 06/01/18 08:00 06/01/18 08:00 06/01/18 08:00 06/01/18 10:31 06/01/18 08:00 Intake and Output: 06/01/18 06/01/18 06:59 18:59 Intake Total 200 Balance 200 - Medications Medications: Current Medications Artificial Tears (Artificial Tears) 1 ml OU BID [facility] Last Admin: 06/01/18 10:32 Dose: 1 drop Aspirin (Aspirin Chewable) 81 mg PO DAILY [facility] Last Admin: 06/01/18 10:26 Dose: Not Given Calcium Acetate (Phoslo) 667 mg PO BIDCC [facility] Last Admin: 06/01/18 08:12 Dose: Not Given Carvedilol (Coreg) 12.5 mg PO BID [facility] Last Admin: 06/01/18 10:26 Dose: Not Given Dextrose (Dextrose 50% Inj) 0 ml IV STAT PRN; Protocol PRN Reason: Hypoglycemia Protocol Dextrose (Glutose 15) 0 gm PO ONCE PRN; Protocol PRN Reason: Hypoglycemia Protocol Docusate Sodium (Colace) 100 mg PO DAILY [facility] Last Admin: 06/01/18 10:26 Dose: Not Given Ergocalciferol (Drisdol 50,000 Intl Units Cap) 1 cap PO Q7D [facility] Last Admin: 05/31/18 15:50 Dose: 1 cap Famotidine (Pepcid) 20 mg PO DAILY [facility] Last Admin: 06/01/18 10:27 Dose: Not Given Folic Acid (Folic Acid) 1 mg PO DAILY [facility] Last Admin: 06/01/18 10:27 Dose: Not Given Furosemide (Lasix) 40 mg IVP DAILY [facility] Last Admin: 06/01/18 10:31 Dose: 40 mg Glucagon (Glucagen Diagnostic Kit) 0 mg IM STAT PRN; Protocol PRN Reason: Hypoglycemia Protocol Heparin Sodium (Porcine) (Heparin) 1,000 units IVP ONCE [facility] Hydralazine HCl (Apresoline) 25 mg PO TID [facility] Last Admin: 06/01/18 10:26 Dose: Not Given Dextrose (Dextrose 5% In Water 1000 Ml) 1,000 mls @ 0 mls/hr IV .Q0M PRN; Protocol PRN Reason: Hypoglycemia Protocol Piperacillin Sod/Tazobactam (Sod 2.25 gm/ Sodium Chloride) 100 mls @ 200 mls/hr IVPB Q8H [facility]; Protocol Last Admin: 06/01/18 05:37 Dose: 200 mls/hr Vancomycin/Sodium Chloride (Vancomycin 1 Gm/Ns 200 Ml) 1 gm in 200 mls @ 133 mls/hr IVPB DAILY [facility]; Protocol Stop: 06/05/18 10:01 Last Admin: 06/01/18 10:32 Dose: 133 mls/hr Insulin Aspart (Novolog) 0 unit SC ACHS [facility]; Protocol Last Admin: 06/01/18 12:00 Dose: Not Given Insulin Glargine (Lantus) 5 unit SC HS [facility] Last Admin: 05/31/18 22:04 Dose: Not Given Isosorbide Mononitrate (Imdur Er) 30 mg PO DAILY [facility] Multivitamins (Hexavitamin) 1 tab PO DAILY [facility] Last Admin: 06/01/18 10:27 Dose: Not Given Neomycin/Polymyxin/Bacitracin (Bacitracin/Neomycin/Polymyxin Opht Oint) 0 applic OD Q3H [facility] Stop: 06/06/18 19:46 Last Admin: 06/01/18 13:39 Dose: Not Given Ondansetron HCl (Zofran Inj) 4 mg IVP Q6H PRN PRN Reason: Nausea/Vomiting Polyethylene Glycol (Miralax) 17 gm PO DAILY PRN PRN Reason: Constipation Rosuvastatin Calcium (Crestor) 5 mg PO HS [facility] Last Admin: 05/31/18 22:03 Dose: 5 mg Saccharomyces Boulardii (Florastor) 250 mg PO BID [facility] Last Admin: 06/01/18 10:27 Dose: Not Given Sodium Bicarbonate (Sodium Bicarbonate Tab) 1,300 mg PO TID [facility] Last Admin: 06/01/18 10:27 Dose: Not Given Thiamine HCl (Vitamin B1 Tab) 100 mg PO DAILY [facility] Last Admin: 06/01/18 10:27 Dose: Not Given - Labs Labs: 06/01/18 07:44 06/01/18 07:44 APTT 55 SECONDS (21-34) H D 05/28/18 08:32
[2018-06-01] MEDS ORDERED: Lidocaine 1% PF (5ml) Amp INJ ONE (15:53)
--- NOTE | 2018-06-01 16:58 | CP.PCM.PCO ---
Procedure: Blank - Time Out Time Out: Side verified, Site verified, Patient ID confirmed - Procedure Procedure:: punch biopsy of R foot - Consent obtained: Consent obtained: Written - Indications Indications(s):: hyperkeratotic amorphous growth - Contraindications: Contraindications:: None - Anesthetic Technique Anesthetic Technique: Local - Topical: Local/Regional Anesthetic:: Lidocaine 1% - Patient Position Patient Position:: Supine - Location Location: Right Toe:: 5 (site of amputed 3rd, 4th, 5th digits) - Description Discription of Procedure: 06/01/18 (performed with Dr. Hernandez, PGY-3) - Result Result: Successful - Post-Procedure Post-procedure:: Hemostasis achieved, Dressing applied, Neurovascular status nml, Vital signs stable - Specimens/Tests Ordered Specimens/Tests Ordered: pathology of 2 punch biopsies - Complications Complications:: Other (patient's skin is very friable so sutures unable to to be placed, punch sites were covered with gauze and tegaderm) - Patient Tolerated Procedure Patient Tolerated Procedure:: Well
--- NOTE | 2018-06-01 17:41 | RAD ---
Date of service: 06/01/2018 PROCEDURE: CHEST RADIOGRAPH, 1 VIEW HISTORY: V/Q scan COMPARISON: 05/29/2018 FINDINGS: LUNGS: Lower lung volumes accentuate pulmonary parenchymal markings particularly at the bases left greater than right. PLEURA: No pneumothorax or pleural fluid seen. CARDIOVASCULAR: No aortic atherosclerotic calcification present. Position/ configuration of pacemaker OSSEOUS STRUCTURES: No significant abnormalities. VISUALIZED UPPER ABDOMEN: Normal. OTHER FINDINGS: None. IMPRESSION: No active disease.
--- NOTE | 2018-06-01 17:42 | NM ---
Date of service: 06/01/2018 COMPARISON: June 01, 2018 single-view chest TECHNIQUE: 10.1 mCi technetium 99-m Xe-133 Gas. 4.4 mCI technetium 99-m MAA administered intravenously. FINDINGS: VENTILATION COMPONENT: Normal. PERFUSION COMPONENT: Heterogeneous distribution of radionuclide. No geographic, segmental, lobar abnormalities apparent on the present examination. This is best seen on the left lateral view, the area of interest is in the left lower lobe. IMPRESSION: Low probability ventilation perfusion scan for pulmonary embolism.
[2018-06-01] MEDS ORDERED: (Lantus) Insulin Glargine, Recombinant SC SCH (18:52)
--- NOTE | 2018-06-02 00:11 | CP.PCM.PCO ---
Physician Communication Note - Physician Communication Note Physician Communication Note: Please see above
[2018-06-02] MEDS: Bacitracin/Neomycin/Polymyxin OPHT OINT OD SCH ×8 (01:16→22:57)
[2018-06-02] MEDS: Piperacillin/Tazobact 2.25 GM in Sodium Chloride 100 ML IVPB SCH ×2 (05:37→13:24)
--- NOTE | 2018-06-02 07:14 | CP.PCM.PN ---
Subjective - Date & Time of Evaluation Date of Evaluation: 06/02/18 Time of Evaluation: 07:30 - Subjective Subjective: PGY-1 Danielle Rodriguez. Medicine progress note for Dr. King's service: Patient was seen and examined this morning. He states he feels well. Denies pain. Reports that his R eye still itches but the eye drops provide relief. He is eating and sleeping well. Objective - Vital Signs/Intake and Output Vital Signs (last 24 hours): Temp Pulse Resp BP Pulse Ox 97.6 F 72 20 144/83 95 06/01/18 23:40 06/01/18 23:40 06/01/18 23:40 06/01/18 23:40 06/01/18 23:40 Intake and Output: 06/02/18 06/02/18 06:59 18:59 Intake Total 200 Output Total 1100 Balance -900 - Medications Medications: Current Medications Artificial Tears (Artificial Tears) 1 ml OU BID [facility] Last Admin: 06/01/18 18:01 Dose: 1 drop Aspirin (Aspirin Chewable) 81 mg PO DAILY [facility] Last Admin: 06/01/18 10:26 Dose: Not Given Calcium Acetate (Phoslo) 667 mg PO BIDCC [facility] Last Admin: 06/01/18 18:01 Dose: 667 mg Carvedilol (Coreg) 12.5 mg PO BID [facility] Last Admin: 06/01/18 17:42 Dose: Not Given Dextrose (Dextrose 50% Inj) 0 ml IV STAT PRN; Protocol PRN Reason: Hypoglycemia Protocol Dextrose (Glutose 15) 0 gm PO ONCE PRN; Protocol PRN Reason: Hypoglycemia Protocol Docusate Sodium (Colace) 100 mg PO DAILY [facility] Last Admin: 06/01/18 10:26 Dose: Not Given Ergocalciferol (Drisdol 50,000 Intl Units Cap) 1 cap PO Q7D [facility] Last Admin: 05/31/18 15:50 Dose: 1 cap Famotidine (Pepcid) 20 mg PO DAILY [facility] Last Admin: 06/01/18 10:27 Dose: Not Given Folic Acid (Folic Acid) 1 mg PO DAILY [facility] Last Admin: 06/01/18 10:27 Dose: Not Given Furosemide (Lasix) 40 mg IVP DAILY [facility] Last Admin: 06/01/18 10:31 Dose: 40 mg Glucagon (Glucagen Diagnostic Kit) 0 mg IM STAT PRN; Protocol PRN Reason: Hypoglycemia Protocol Heparin Sodium (Porcine) (Heparin) 1,000 units IVP ONCE [facility] Heparin Sodium (Porcine) (Heparin) 5,000 units SC Q12 [facility] Last Admin: 06/01/18 21:38 Dose: 5,000 units Hydralazine HCl (Apresoline) 25 mg PO TID [facility] Last Admin: 06/01/18 17:42 Dose: Not Given Dextrose (Dextrose 5% In Water 1000 Ml) 1,000 mls @ 0 mls/hr IV .Q0M PRN; Protocol PRN Reason: Hypoglycemia Protocol Piperacillin Sod/Tazobactam (Sod 2.25 gm/ Sodium Chloride) 100 mls @ 200 mls/hr IVPB Q8H [facility]; Protocol Last Admin: 06/02/18 05:37 Dose: 200 mls/hr Vancomycin/Sodium Chloride (Vancomycin 1 Gm/Ns 200 Ml) 1 gm in 200 mls @ 133 mls/hr IVPB DAILY [facility]; Protocol Stop: 06/05/18 10:01 Last Admin: 06/01/18 10:32 Dose: 133 mls/hr Insulin Aspart (Novolog) 0 unit SC ACHS [facility]; Protocol Last Admin: 06/01/18 21:33 Dose: Not Given Insulin Aspart (Novolog Mix 70/30 (70/30 Units/Ml)) 3 units SC AC [facility] Insulin Glargine (Lantus) 14 unit SC HS [facility] Last Admin: 06/01/18 21:37 Dose: 14 u Isosorbide Mononitrate (Imdur Er) 30 mg PO DAILY [facility] Multivitamins (Hexavitamin) 1 tab PO DAILY [facility] Last Admin: 06/01/18 10:27 Dose: Not Given Neomycin/Polymyxin/Bacitracin (Bacitracin/Neomycin/Polymyxin Opht Oint) 0 applic OD Q3H [facility] Stop: 06/06/18 19:46 Last Admin: 06/02/18 05:37 Dose: 0.5 inch Ondansetron HCl (Zofran Inj) 4 mg IVP Q6H PRN PRN Reason: Nausea/Vomiting Polyethylene Glycol (Miralax) 17 gm PO DAILY PRN PRN Reason: Constipation Rosuvastatin Calcium (Crestor) 5 mg PO HS [facility] Last Admin: 06/01/18 21:37 Dose: 5 mg Saccharomyces Boulardii (Florastor) 250 mg PO BID [facility] Last Admin: 06/01/18 18:01 Dose: 250 mg Sodium Bicarbonate (Sodium Bicarbonate Tab) 1,300 mg PO TID [facility] Last Admin: 06/01/18 18:01 Dose: 1,300 mg Thiamine HCl (Vitamin B1 Tab) 100 mg PO DAILY [facility] Last Admin: 06/01/18 10:27 Dose: Not Given - Labs Labs: 06/01/18 07:44 06/01/18 07:44 APTT 55 SECONDS (21-34) H D 05/28/18 08:32 - Constitutional Appears: No Acute Distress, Unkempt - Head Exam Head Exam: ATRAUMATIC, NORMAL INSPECTION - Eye Exam Eye Exam: Conjunctival injection (R eye improving), EOMI - ENT Exam ENT Exam: Mucous Membranes Moist - Neck Exam Neck Exam: Normal Inspection - Respiratory Exam Respiratory Exam: Clear to Ausculation Bilateral, NORMAL BREATHING PATTERN. absent: Respiratory Distress - Cardiovascular Exam Cardiovascular Exam: REGULAR RHYTHM, +S1, +S2 - GI/Abdominal Exam GI & Abdominal Exam: Soft. absent: Tenderness - Rectal Exam Rectal Exam: Deferred - Extremities Exam Extremities Exam: absent: Pedal Edema, Tenderness Additional comments: R foot wrapped in anay bandage s/p punch biopsies yesterday scabs on b/l shins, largest with some dry ulceration on L anterior tibia - Neurological Exam Neurological Exam: Alert, Awake, CN II-XII Intact, Oriented x3 - Psychiatric Exam Psychiatric exam: Normal Affect, Normal Mood - Skin Skin Exam: Dry, Normal Color, Warm Assessment and Plan - Assessment and Plan (Free Text) Assessment: Patient is a 48 yo male with a history of uncontrolled T2DM and CHF s/p AICD who presented with generalized weakness and falls. Required ICU admission for 1 day due to hypotension- no pressors. Now much clinically improved and downgraded to telemetry unit. Patient's initial blood Cx grew micrococcus species. Subsequent 2 sets grew Staph aureus. INA did not demonstrate vegetations. Pending bone scans to evaluate source of bacteremia. Plan: Sepsis with Staph aureus bacteremia- suspect osteomyelitis due to R foot amputation site and/or L anterior tibia ulceration and/or endocarditis - Most recent fever 05/27 100.7 - Leukocytosis and bandemia resolved - Lactate 1.8 - Procal 27.53->8.3- repeat on 06/06 - ESR 72 - CXR: no active disease - TTE: EF 26%, no vegetations - INA: moderately reduced EF, no vegetations or thrombi - Blood Cx: Micrococcus species x2 - Repeat Blood Cx: Staph aureus x4 - Urine, stool Cx no growth - R foot XR: no evidence of osteomyelitis - F/u punch biopsies - Certec scan negative - LE arterial and venous studies: no significant abnormalities per vas surgery - 3 view bone scans of b/l LEs pending - Discontinue Zosyn 2.25 mg IV Q8H- started 05/29 - Discontinue Vancomycin 1 g IV daily- started 05/30 - Random vanc 34 on 06/02 - Start Nafcillin 2 g IV Q4H- started 06/02 - Florastor 250 mg PO BID - Consider PICC once 06/02 blood Cx neg >24 hrs - ICU consulted - Surgery consulted (James)- no intervention - ID consulted (Charly) - Podiatry consulted (Ryder)- no intervention at this time - PT/OT- rec TCU Renal insufficiency, stable- suspect ATN due to sepsis and/or CHF in addition to CKD from DM and HTN - BUN 37->91->83 - Cr 1.6->5.1->4.2 - Avoid ACEI/ARB and other nephrotoxic drugs - Renally dose meds - Maintain normotension - No IVF due to CHF - Nephrology consulted (Junior)- no need for dialysis yet but will continue to follow, continue Lasix Elevated troponin, improved- h/o nonischemic cardiomyopathy (cath 10/19), suspect 2/2 kidney disease, doubt NSTEMI - Trop: 0.17->0.233->0.222 - EKG: no ST elevations, ventricular-paced rhythm - Cardiology consulted (Mary)- no heparin or Plavix Elevated D-dimer (1468)- suspect 2/2 kidney disease - V/Q scan pending - Cannot get CTA due to kidney function Hyponatremia, resolved - Avoid correction >6-8 mEq/24 hrs - TSH low (0.31), T4 wnl (1.5) - Serum osm 316 - Urine osm 281 - Urine Na 27, K 6.4 - AM cortisol elevated 29.7 - Sodium bicarb 1300 mg PO TID Systolic heart failure (HFrEF)- s/p AICD - BNP 11,300 - Echo: EF 26% - Strict I's & O's - Daily weights - Fluid restriction <1200 mL/day - b/l lower lung field rales - CXR 05/29: no active disease - ASA 81 mg PO daily - Coreg 12.5 mg PO BID - Lasix 40 mg IV daily - Hydralazine 25 mg PO TID - Isosorbide nitrate 30 mg PO daily - Cardiology consulted (Hupart) Secondary hyperparathyroidism- 2/2 kidney disease - Elevated PTH (153) - Low Ca (7) - Elevated Ph (5.2) - Low Vit D (<12.5) - Phoslo 667 mg PO BID - Ergocalciferol 50,000 QWK Type 2 diabetes mellitus - A1c 7.8 - Hypoglycemia protocol - Accuchecks ACHS with ISS - Increase Lantus to 14 units SC QHS - Start Aspart 3 u AC R eye conjunctivitis, improving - Artificial tears BID - Bacitracin/Neomycin/polymyxin OD Q3H while awake x7 days - Ophthalmology consulted (Doron) Dyslipidemia - Choles 112, LDL<30, HDL 12, TG 320-765 (suspect 2nd value is not fasting) - Crestor 5 mg PO QHS Thrombocytopenia, resolved- suspect 2/2 kidney disease - Monitor CBC - Hepatitis negative - HIV negative Constipation, resolved - Miralax 17 g PO daily PRN - Colace 100 mg PO daily Ppx: VTE: heparin 5000 u SC Q12H GI: Pepcid 20 mg PO daily Code status: full code Case was discussed with attending, Dr. King.
[2018-06-02 07:48] LABS: BASO # 0.1 K/uL (0.0-0.2); BASO % 0.7 % (0.0-2.0); EOS # 0.3 K/uL (0.0-0.7); HEMOGLOBIN 12.7 g/dL (12.0-18.0); LYMPH # 0.9 K/uL (1.0-4.3); LYMPH % 10.6 % (20.0-40.0); MEAN CELL VOLUME 88.9 fL (80.0-94.0); MEAN CORPUSCULAR HGB CONC 33.8 g/dL (33.0-37.0); MEAN PLATELET VOLUME 9.6 fL (7.2-11.7); MONO # 1.1 K/uL (0.0-0.8); MONO % 12.4 % (0.0-10.0); NEUT # 6.3 K/uL (1.8-7.0); NEUT % 73.3 % (50.0-75.0); RBC 4.24 Mil/uL (4.40-5.90); RED CELL DISTRIBUTION WIDTH 14.1 % (11.5-14.5); WHITE BLOOD COUNT 8.6 K/uL (4.8-10.8)
[2018-06-02 08:14] LABS: ALB/GLOB RATIO 0.8 (1.0-2.1); ALBUMIN 3.1 g/dL (3.5-5.0); CALCIUM 7.8 mg/dl (8.6-10.4)
[2018-06-02 08:16] LABS: COMPLEMENT C4 34.4 mg/dL (14.0-44.0)
[2018-06-02] MEDS: (Novolog Mix 70/30) Insulin Aspart/Insulin Aspar 100 units/ml SC SCH ×3 (08:55→17:56)
[2018-06-02] MEDS: (Novolog) Insulin Aspart, Recombinant 100 u/ml 10 ml vial SC SCH ×4 (08:56→21:27)
--- NOTE | 2018-06-02 09:21 | CARD ---
APPROVED REPORT Date of service: 06/01/2018 EXAM: Transesophageal echocardiogram with color flow Doppler. INDICATION Infection : Rule out subacute bacterial endocarditis LEFT VENTRICLE The left ventricle is normal size. There is moderate concentric left ventricular hypertrophy. The left ventricular function is moderately reduced , with diffuse hypokinesis No regional wall motion abnormalities noted. No left ventricle thrombus noted on this study. There is no ventricular septal defect visualized. There is no left ventricular aneurysm. There is no mass noted in the left ventricle. RIGHT VENTRICLE The right ventricle is normal size. There is normal right ventricular wall thickness. The right ventricular systolic function is normal. A ppm wire is noted, no vegetation. ATRIA The left atrium size is dilated. No appendage thrombus The right atrium size is normal. PPM wires are noted in the RA, no vegetation. The interatrial septum is intact with no evidence for an atrial septal defect. By color Doppler. AORTIC VALVE The aortic valve is normal in structure and function. No aortic regurgitation is present. There is no aortic valvular stenosis. There is no aortic valvular vegetation. MITRAL VALVE The mitral valve is normal in structure and function. There is no evidence of mitral valve prolapse. There is no mitral valve stenosis. There is no mitral valve regurgitation noted. TRICUSPID VALVE The tricuspid valve is normal in structure and function. There is no tricuspid valve regurgitation noted. There is no tricuspid valve prolapse or vegetation. There is no tricuspid valve stenosis. PULMONIC VALVE The pulmonary valve is normal in structure and function. There is no pulmonic valvular regurgitation. There is no pulmonic valvular stenosis. GREAT VESSELS The aortic root is normal in size. The ascending aorta is normal in size. No aortic plazue. The pulmonary artery is normal. The IVC is normal in size and collapses >50% with inspiration. PERICARDIAL EFFUSION The pericardium appears normal. There is no pleural effusion. <Conclusion> The left ventricular function is moderately reduced , with diffuse hypokinesis There is moderate concentric left ventricular hypertrophy. Two PPM wires, noted in the RA and RV were normal, wiothout thrombus or vegetation. Normal Doppler.
[2018-06-02] MEDS: Vancomycin 1 gm/NS 200 ml 1 GM/200 ML BAG IVPB SCH (09:55)
[2018-06-02] MEDS: Saccharomyces Boulardi 250 mg Cap PO SCH ×2 (09:56→17:55)
[2018-06-02] MEDS: Multiple Vitamins Tab PO SCH (09:58)
[2018-06-02] MEDS: Aritificial Tears (15ml) OU SCH ×2 (09:59→18:04)
--- NOTE | 2018-06-02 12:32 | VASCLAB ---
Date of service: 05/31/2018 STUDY DESCRIPTION: Lower Extremity Arterial Exam (PVR). HISTORY: peripheral artery disease PRIORS: None. TECHNIQUE: Pulse volume recording waveforms and segmental pressures of bilateral lower extremities at multiple levels were obtained. Ankle Brachial Indices (ABIs) were calculated. Report prepared by HO Klein, RVT RIGHT LOWER EXTREMITY: * Brachial artery: Pressure - 160 mmHg. * High thigh: Pressure - 220 mmHg: Ratio - NC: PVR waveform - Pulsatile * Low thigh: Pressure - 199 mmHg: Ratio - 1.24 PVR waveform: Pulsatile * Calf: Pressure - 220 mmHg: Ratio - NC PVR waveform: Pulsatile * Posterior tibial Artery: Pressure - 220 mmHg: Ratio - NC PVR waveform: Pulsatile * Dorsalis pedis Artery: Pressure - 220 mmHg: Ratio - NC PVR waveform: Pulsatile * Great toe: Pressure - mmHg: Ratio - PVR waveform: Ankle brachial index (DYLON): NC LEFT LOWER EXTREMITY: * Brachial artery: Pressure - 157 mmHg. * High thigh: Pressure - 220 mmHg: Ratio - NC: PVR waveform - Pulsatile * Low thigh: Pressure - 185 mmHg: Ratio - 1.16 PVR waveform: Pulsatile * Calf: Pressure - 220 mmHg: Ratio - NC PVR waveform: Pulsatile * Posterior tibial Artery: Pressure - 220 mmHg: Ratio - NC PVR waveform: Pulsatile * Dorsalis pedis Artery: Pressure - 220 mmHg: Ratio - NC PVR waveform: Pulsatile * Great toe: Pressure - mmHg: Ratio - PVR waveform: Ankle brachial index (DYLON): NC OTHER FINDINGS: Right: Left: IMPRESSION: Right: The ankle pressure index of the right lower extremity is non-diagnostic due to possible arterial wall calcifications. Left: The ankle pressure index of the left lower extremity is non-diagnostic due to possible arterial wall calcifications.
--- NOTE | 2018-06-02 13:32 | CP.PCM.PN ---
Subjective - Date & Time of Evaluation Date of Evaluation: 06/02/18 Time of Evaluation: 13:31 - Subjective Subjective: Nephrology Consultation Note Assessment: Stable non-oliguric Acute Kidney Injury (N17.9) likely ATN due to sepsis (? 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 renal fxn better today. anticipate gradual improvement Hypertension control with meds as ordered. Maintain hemodynamics stable. Avoid hypotension. Patient not on ACEI/ARB due to recent EL meds for CHF being optimized by cardiology Monitor Input/Output, daily weights and renal function with basic metabolic panel continue with lasix added sodium bicarb 1300 mg tid avoid correction in serum Na >6-8 meq/24 hrs on weekly Vit D Check urine analysis, spot protein/creatinine, albumin/creatinine ratio, urine for Na/OSmol, renal sonogram Check for 25-OH vitamin D, iPTH, phosphorus level. will check c3/c4/anca as well Dose meds/antibiotics for reduced GFR. Avoid fleets enema/magnesium based laxatives. Avoid nephrotoxins/NSAIDs/ iodinated contrast (unless needed emergently) Glycemic control Further work up for as per primary team Thanks for allowing me to participate in care of your patient. Will follow patient with you. Please call if any Qs. had d/w team Dr Max Chu Office: [phone] Subjective: Noted events overnight. Patients feels better Denies chest pain, palpitation, shortness of breath, leg swelling. All other negative. INA neg for IE Physical Examination: General Appearance: Comfortable, in no acute respiratory distress, co-operative . Vitals reviewed and noted as below Head; Atraumatic, normocephalic ENT: no ulcers no thrush. Tongue is midline. Oropharynx: no rash or ulcers. EYES: Pupils are equal, round and reactive to light accommodation. Eye muscles and extraocular movement intact. Sclera is anicteric. Neck; supple no lymphadenopathy, no thyromegaly or bruit Lungs: Normal respiratory rate/effort. Breath sounds bilateral improved at bases with crackles Heart: Normal rate. s1s2 normal. No rub or gallop. Extremities: no edema. No varicose veins. Rt foot toe amputations in past with superificial scab Neurological: Patient is alert, awake and oriented to person, place and time. No focal deficit. Strength bilateral appropriate and equal Skin: Warm and dry. Normal turgor. No rash. Palpitation: Normal elasticity for age Abdomen: Abdomen is soft. Bowel sounds +. There is no abdominal tenderness, no guarding/rigidity no organomegaly Psych: normal insight and normal affect/mood MSK: no joint tenderness or swelling. Digits and nails normal, no deformity : kidney or bladder not palpable. Labs/imaging reviewed. Past medical history, past surgical history, family history, social history, allergy reviewed and noted as below Family hx: no hx of CKD. Rest non-contributory HIV/Hep B and C neg UA 2+ blood and neg prot Objective - Vital Signs/Intake and Output Vital Signs (last 24 hours): Temp Pulse Resp BP Pulse Ox 98 F 67 20 158/82 H 95 06/02/18 08:44 06/02/18 08:47 06/02/18 08:44 06/02/18 09:58 06/02/18 08:44 Intake and Output: 06/02/18 06/02/18 06:59 18:59 Intake Total 200 Output Total 1100 Balance -900 - Medications Medications: Current Medications Artificial Tears (Artificial Tears) 1 ml OU BID [facility] Last Admin: 06/02/18 09:59 Dose: 1 drop Aspirin (Aspirin Chewable) 81 mg PO DAILY [facility] Last Admin: 06/02/18 09:58 Dose: 81 mg Calcium Acetate (Phoslo) 667 mg PO BIDCC [facility] Last Admin: 06/02/18 09:58 Dose: 667 mg Carvedilol (Coreg) 12.5 mg PO BID [facility] Last Admin: 06/02/18 09:58 Dose: 12.5 mg Dextrose (Dextrose 50% Inj) 0 ml IV STAT PRN; Protocol PRN Reason: Hypoglycemia Protocol Dextrose (Glutose 15) 0 gm PO ONCE PRN; Protocol PRN Reason: Hypoglycemia Protocol Docusate Sodium (Colace) 100 mg PO DAILY [facility] Last Admin: 06/02/18 09:57 Dose: 100 mg Ergocalciferol (Drisdol 50,000 Intl Units Cap) 1 cap PO Q7D [facility] Last Admin: 05/31/18 15:50 Dose: 1 cap Famotidine (Pepcid) 20 mg PO DAILY [facility] Last Admin: 06/02/18 09:59 Dose: 20 mg Folic Acid (Folic Acid) 1 mg PO DAILY [facility] Last Admin: 06/02/18 09:59 Dose: 1 mg Furosemide (Lasix) 40 mg IVP DAILY [facility] Last Admin: 06/02/18 09:57 Dose: 40 mg Glucagon (Glucagen Diagnostic Kit) 0 mg IM STAT PRN; Protocol PRN Reason: Hypoglycemia Protocol Heparin Sodium (Porcine) (Heparin) 1,000 units IVP ONCE [facility] Heparin Sodium (Porcine) (Heparin) 5,000 units SC Q12 [facility] Last Admin: 06/02/18 09:57 Dose: 5,000 units Hydralazine HCl (Apresoline) 25 mg PO TID [facility] Last Admin: 06/02/18 13:23 Dose: 25 mg Dextrose (Dextrose 5% In Water 1000 Ml) 1,000 mls @ 0 mls/hr IV .Q0M PRN; Protocol PRN Reason: Hypoglycemia Protocol Piperacillin Sod/Tazobactam (Sod 2.25 gm/ Sodium Chloride) 100 mls @ 200 mls/hr IVPB Q8H [facility]; Protocol Last Admin: 06/02/18 13:24 Dose: 200 mls/hr Vancomycin/Sodium Chloride (Vancomycin 1 Gm/Ns 200 Ml) 1 gm in 200 mls @ 133 m ls/hr IVPB DAILY [facility]; Protocol Stop: 06/05/18 10:01 Last Admin: 06/02/18 09:55 Dose: 133 mls/hr Insulin Aspart (Novolog) 0 unit SC ACHS [facility]; Protocol Last Admin: 06/02/18 13:23 Dose: 3 units Insulin Aspart (Novolog Mix 70/30 (70/30 Units/Ml)) 3 units SC AC [facility] Last Admin: 06/02/18 13:22 Dose: 3 units Insulin Glargine (Lantus) 14 unit SC HS [facility] Last Admin: 06/01/18 21:37 Dose: 14 u Isosorbide Mononitrate (Imdur Er) 30 mg PO DAILY [facility] Last Admin: 06/02/18 09:57 Dose: 30 mg Multivitamins (Hexavitamin) 1 tab PO DAILY [facility] Last Admin: 06/02/18 09:58 Dose: 1 tab Neomycin/Polymyxin/Bacitracin (Bacitracin/Neomycin/Polymyxin Opht Oint) 0 applic OD Q3H [facility] Stop: 06/06/18 19:46 Last Admin: 06/02/18 13:24 Dose: 0.5 inch Ondansetron HCl (Zofran Inj) 4 mg IVP Q6H PRN PRN Reason: Nausea/Vomiting Polyethylene Glycol (Miralax) 17 gm PO DAILY PRN PRN Reason: Constipation Rosuvastatin Calcium (Crestor) 5 mg PO HS [facility] Last Admin: 06/01/18 21:37 Dose: 5 mg Saccharomyces Boulardii (Florastor) 250 mg PO BID [facility] Last Admin: 06/02/18 09:56 Dose: 250 mg Sodium Bicarbonate (Sodium Bicarbonate Tab) 1,300 mg PO TID [facility] Last Admin: 06/02/18 13:23 Dose: 1,300 mg Thiamine HCl (Vitamin B1 Tab) 100 mg PO DAILY [facility] Last Admin: 06/02/18 09:58 Dose: 100 mg - Labs Labs: 06/02/18 07:42 06/02/18 07:42 APTT 55 SECONDS (21-34) H D 05/28/18 08:32
[2018-06-02] MEDS ORDERED: (Novolog Mix 70/30) Insulin Aspart/Insulin Aspar 100 units/ml SC SCH (18:43)
[2018-06-02] MEDS ORDERED: (Lantus) Insulin Glargine, Recombinant SC SCH (18:44)
[2018-06-02] MEDS: (Lantus) Insulin Glargine, Recombinant SC SCH (22:12)
[2018-06-03] MEDS: Bacitracin/Neomycin/Polymyxin OPHT OINT OD SCH ×6 (00:58→19:55)
--- NOTE | 2018-06-03 06:29 | CP.PCM.PN ---
Subjective - Date & Time of Evaluation Date of Evaluation: 06/03/18 Time of Evaluation: 07:10 - Subjective Subjective: PGY-1 Luisa Damon D.O. Medicine progress note for Dr. Turner's service: Patient was seen and examined this morning. Patient states he feels well- no acute complaints. He is eating and sleeping well. Denies pain. Objective - Vital Signs/Intake and Output Vital Signs (last 24 hours): Temp Pulse Resp BP Pulse Ox 97.6 F 67 20 136/68 95 06/02/18 23:38 06/02/18 23:38 06/02/18 23:38 06/02/18 23:38 06/02/18 23:38 Intake and Output: 06/02/18 06/03/18 18:59 06:59 Intake Total 350 650 Output Total 300 Balance 50 650 - Medications Medications: Current Medications Artificial Tears (Artificial Tears) 1 ml OU BID [facility] Last Admin: 06/02/18 18:04 Dose: 1 drop Aspirin (Aspirin Chewable) 81 mg PO DAILY [facility] Last Admin: 06/02/18 09:58 Dose: 81 mg Calcium Acetate (Phoslo) 667 mg PO BIDCC [facility] Last Admin: 06/02/18 17:55 Dose: 667 mg Carvedilol (Coreg) 12.5 mg PO BID [facility] Last Admin: 06/02/18 17:25 Dose: Not Given Dextrose (Dextrose 50% Inj) 0 ml IV STAT PRN; Protocol PRN Reason: Hypoglycemia Protocol Dextrose (Glutose 15) 0 gm PO ONCE PRN; Protocol PRN Reason: Hypoglycemia Protocol Docusate Sodium (Colace) 100 mg PO DAILY [facility] Last Admin: 06/02/18 09:57 Dose: 100 mg Ergocalciferol (Drisdol 50,000 Intl Units Cap) 1 cap PO Q7D [facility] Last Admin: 05/31/18 15:50 Dose: 1 cap Famotidine (Pepcid) 20 mg PO DAILY [facility] Last Admin: 06/02/18 09:59 Dose: 20 mg Folic Acid (Folic Acid) 1 mg PO DAILY [facility] Last Admin: 06/02/18 09:59 Dose: 1 mg Furosemide (Lasix) 40 mg IVP DAILY [facility] Last Admin: 06/02/18 09:57 Dose: 40 mg Glucagon (Glucagen Diagnostic Kit) 0 mg IM STAT PRN; Protocol PRN Reason: Hypoglycemia Protocol Heparin Sodium (Porcine) (Heparin) 1,000 units IVP ONCE [facility] Heparin Sodium (Porcine) (Heparin) 5,000 units SC Q12 [facility] Last Admin: 06/02/18 22:13 Dose: 5,000 units Hydralazine HCl (Apresoline) 25 mg PO TID [facility] Last Admin: 06/02/18 17:25 Dose: Not Given Dextrose (Dextrose 5% In Water 1000 Ml) 1,000 mls @ 0 mls/hr IV .Q0M PRN; Protocol PRN Reason: Hypoglycemia Protocol Nafcillin Sodium 2 gm/ Sodium (Chloride) 250 mls @ 250 mls/hr IVPB Q4H [facility]; Protocol Last Admin: 06/03/18 05:28 Dose: 250 mls/hr Insulin Aspart (Novolog) 0 unit SC ACHS [facility]; Protocol Last Admin: 06/02/18 21:27 Dose: Not Given Insulin Aspart (Novolog Mix 70/30 (70/30 Units/Ml)) 6 units SC AC [facility] Insulin Glargine (Lantus) 20 unit SC HS [facility] Last Admin: 06/02/18 22:12 Dose: 20 units Isosorbide Mononitrate (Imdur Er) 30 mg PO DAILY [facility] Last Admin: 06/02/18 09:57 Dose: 30 mg Multivitamins (Hexavitamin) 1 tab PO DAILY [facility] Last Admin: 06/02/18 09:58 Dose: 1 tab Neomycin/Polymyxin/Bacitracin (Bacitracin/Neomycin/Polymyxin Opht Oint) 0 applic OD Q3H [facility] Stop: 06/06/18 19:46 Last Admin: 06/03/18 04:34 Dose: 0.5 inch Ondansetron HCl (Zofran Inj) 4 mg IVP Q6H PRN PRN Reason: Nausea/Vomiting Polyethylene Glycol (Miralax) 17 gm PO DAILY PRN PRN Reason: Constipation Rosuvastatin Calcium (Crestor) 5 mg PO HS [facility] Last Admin: 06/02/18 22:15 Dose: 5 mg Saccharomyces Boulardii (Florastor) 250 mg PO BID [facility] Last Admin: 06/02/18 17:55 Dose: 250 mg Sodium Bicarbonate (Sodium Bicarbonate Tab) 1,300 mg PO TID [facility] Last Admin: 06/02/18 17:55 Dose: 1,300 mg Thiamine HCl (Vitamin B1 Tab) 100 mg PO DAILY [facility] Last Admin: 06/02/18 09:58 Dose: 100 mg - Labs Labs: 06/02/18 07:42 06/02/18 07:42 APTT 55 SECONDS (21-34) H D 05/28/18 08:32 - Constitutional Appears: No Acute Distress, Unkempt - Head Exam Head Exam: ATRAUMATIC, NORMAL INSPECTION - Eye Exam Eye Exam: EOMI, PERRL Additional comments: R eye erythema improving - ENT Exam ENT Exam: Mucous Membranes Moist - Neck Exam Neck Exam: Normal Inspection - Respiratory Exam Respiratory Exam: Clear to Ausculation Bilateral, NORMAL BREATHING PATTERN - Cardiovascular Exam Cardiovascular Exam: REGULAR RHYTHM, +S1, +S2 - GI/Abdominal Exam GI & Abdominal Exam: Soft. absent: Tenderness - Rectal Exam Rectal Exam: Deferred - Extremities Exam Additional comments: R foot wrapped in anay bandage s/p punch biopsies scabs on b/l shins, largest with some dry ulceration on L anterior tibia - Neurological Exam Neurological Exam: Alert, Awake, CN II-XII Intact, Oriented x3 Neuro motor strength exam: Left Upper Extremity: 5, Right Upper Extremity: 5, Left Lower Extremity: 5, Right Lower Extremity: 5 - Psychiatric Exam Psychiatric exam: Normal Affect, Normal Mood - Skin Skin Exam: Dry, Normal Color, Warm Assessment and Plan - Assessment and Plan (Free Text) Assessment: Patient is a 48 yo male with a history of uncontrolled T2DM and CHF s/p AICD who presented with generalized weakness and falls. Required ICU admission for 1 day due to hypotension- no pressors. Now much clinically improved and downgraded to telemetry unit. Patient's initial blood Cx grew micrococcus species. Subsequent 2 sets grew Staph aureus. INA did not demonstrate vegetations. Negative Certec scan. Bone scan shows possible R foot cellulitis. Plan: Sepsis with Staph aureus bacteremia- suspect osteomyelitis due to R foot amputation site and/or L anterior tibia ulceration and/or endocarditis - Most recent fever 05/27 100.7 - Leukocytosis and bandemia resolved - Lactate 1.8 - Procal 27.53->8.3- repeat on 06/06 - ESR 72 - CXR: no active disease - TTE: EF 26%, no vegetations - INA: moderately reduced EF, no vegetations or thrombi - Blood Cx: Micrococcus species x2 - Repeat Blood Cx: Staph aureus x4 - Repeat Blood Cx no growth >24 hrs - Urine, stool Cx no growth - R foot XR: no evidence of osteomyelitis - F/u punch biopsies - Certec scan negative - LE arterial and venous studies: no significant abnormalities per [facility] surgery - 3 view bone scans of b/l LEs: no evidence of osteomyelitis, possible R foot cellulitis - Nafcillin 2 g IV Q4H- started 06/02 - Florastor 250 mg PO BID - Consider PICC once 06/02 blood Cx neg >24 hrs - ICU consulted - Surgery consulted (James)- no intervention - ID consulted (Charly) - Podiatry consulted (Ryder)- no intervention at this time - PT/OT- rec TCU Renal insufficiency, stable- suspect ATN due to sepsis and/or CHF in addition to CKD from DM and HTN - BUN 37->91->74 - Cr 1.6->5.1->4.2 - Avoid ACEI/ARB and other nephrotoxic drugs - Renally dose meds - Maintain normotension - No IVF due to CHF - Nephrology consulted (Junior)- no need for dialysis yet but will continue to follow, continue Lasix Elevated troponin, improved- h/o nonischemic cardiomyopathy (cath 10/19), suspect 2/2 kidney disease, doubt NSTEMI - Trop: 0.17->0.233->0.222 - EKG: no ST elevations, ventricular-paced rhythm - Cardiology consulted (Mary)- no heparin or Plavix Elevated D-dimer (1468)- suspect 2/2 kidney disease - V/Q scan: low probability of PE - Cannot get CTA due to kidney function Hyponatremia, resolved - Avoid correction >6-8 mEq/24 hrs - TSH low (0.31), T4 wnl (1.5) - Serum osm 316 - Urine osm 281 - Urine Na 27, K 6.4 - AM cortisol elevated 29.7 - Sodium bicarb 1300 mg PO TID Systolic heart failure (HFrEF)- s/p AICD - BNP 11,300 - Echo: EF 26% - Strict I's & O's - Daily weights - Fluid restriction <1200 mL/day - b/l lower lung field rales - CXR 11/25: no active disease - ASA 81 mg PO daily - Coreg 12.5 mg PO BID - Lasix 40 mg IV daily - Hydralazine 25 mg PO TID - Isosorbide nitrate 30 mg PO daily - Cardiology consulted (Hupart) Secondary hyperparathyroidism- 2/2 kidney disease - Elevated PTH (153) - Low Ca (7) - Elevated Ph (5.2) - Low Vit D (<12.5) - Phoslo 667 mg PO BID - Ergocalciferol 50,000 QWK Type 2 diabetes mellitus - A1c 7.8 - Hypoglycemia protocol - Accuchecks ACHS with ISS - Increase Lantus to 20 units SC QHS - Increase Aspart to 6 u AC R eye conjunctivitis, improving - Artificial tears BID - Bacitracin/Neomycin/polymyxin OD Q3H while awake x7 days - Ophthalmology consulted (Doron) Dyslipidemia - Choles 112, LDL<30, HDL 12, TG 320-765 (suspect 2nd value is not fasting) - Crestor 5 mg PO QHS Thrombocytopenia, resolved- suspect 2/2 kidney disease - Monitor CBC - Hepatitis negative - HIV negative Constipation, resolved - Miralax 17 g PO daily PRN - Colace 100 mg PO daily Ppx: VTE: heparin 5000 u SC Q12H GI: Pepcid 20 mg PO daily Code status: full code Case was discussed with attending, Dr. Turner.
[2018-06-03 08:23] LABS: ALB/GLOB RATIO 0.7 (1.0-2.1); ALBUMIN 2.9 g/dL (3.5-5.0); CALCIUM 7.5 mg/dl (8.6-10.4)
[2018-06-03] MEDS: (Novolog Mix 70/30) Insulin Aspart/Insulin Aspar 100 units/ml SC SCH ×3 (08:23→19:56)
[2018-06-03] MEDS: (Novolog) Insulin Aspart, Recombinant 100 u/ml 10 ml vial SC SCH ×3 (08:23→19:56)
[2018-06-03 08:31] LABS: BASO # 0.1 K/uL (0.0-0.2); BASO % 0.6 % (0.0-2.0); EOS # 0.2 K/uL (0.0-0.7); EOS % 2.6 % (0.0-4.0); HEMOGLOBIN 11.8 g/dL (12.0-18.0); LYMPH # 1.1 K/uL (1.0-4.3); LYMPH % 12.7 % (20.0-40.0); MEAN CORPUSCULAR HEMOGLOBIN 29.6 pg (27.0-31.0); MEAN CORPUSCULAR HGB CONC 33.2 g/dL (33.0-37.0); MEAN PLATELET VOLUME 9.3 fL (7.2-11.7); MONO % 11.1 % (0.0-10.0); NEUT # 6.6 K/uL (1.8-7.0); RBC 4.01 Mil/uL (4.40-5.90); RED CELL DISTRIBUTION WIDTH 13.8 % (11.5-14.5)
[2018-06-03] MEDS: Saccharomyces Boulardi 250 mg Cap PO SCH ×2 (09:37→19:53)
[2018-06-03] MEDS: Multiple Vitamins Tab PO SCH (09:37)
[2018-06-03] MEDS: Aritificial Tears (15ml) OU SCH ×2 (09:39→19:55)
--- NOTE | 2018-06-03 11:35 | CP.PCM.PN ---
Subjective - Date & Time of Evaluation Date of Evaluation: 06/03/18 Time of Evaluation: 11:35 - Subjective Subjective: Nephrology Consultation Note Assessment: Stable non-oliguric Acute Kidney Injury (N17.9) likely ATN due to sepsis (? 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 renal fxn stable today. anticipate gradual improvement Hypertension control with meds as ordered. Maintain hemodynamics stable. Avoid hypotension. Patient not on ACEI/ARB due to recent EL meds for CHF being optimized by cardiology Monitor Input/Output, daily weights and renal function with basic metabolic panel continue with lasix added sodium bicarb 1300 mg tid avoid correction in serum Na >6-8 meq/24 hrs on weekly Vit D Check urine analysis, spot protein/creatinine, albumin/creatinine ratio, urine for Na/OSmol, renal sonogram Check for 25-OH vitamin D, iPTH, phosphorus level. will check c3/c4/anca as well Dose meds/antibiotics for reduced GFR. Avoid fleets enema/magnesium based laxatives. Avoid nephrotoxins/NSAIDs/ iodinated contrast (unless needed emergently) Glycemic control Further work up for as per primary team Thanks for allowing me to participate in care of your patient. Will follow patient with you. Please call if any Qs. had d/w team Dr Max Chu Office: [phone] Subjective: Noted events overnight. Patients feels better Denies chest pain, palpitation, shortness of breath, leg swelling. All other negative. INA neg for IE Physical Examination: General Appearance: Comfortable, in no acute respiratory distress, co-operative . Vitals reviewed and noted as below Head; Atraumatic, normocephalic ENT: no ulcers no thrush. Tongue is midline. Oropharynx: no rash or ulcers. EYES: Pupils are equal, round and reactive to light accommodation. Eye muscles and extraocular movement intact. Sclera is anicteric. Neck; supple no lymphadenopathy, no thyromegaly or bruit Lungs: Normal respiratory rate/effort. Breath sounds bilateral improved at bases with crackles Heart: Normal rate. s1s2 normal. No rub or gallop. Extremities: no edema. No varicose veins. Rt foot toe amputations in past with superificial scab Neurological: Patient is alert, awake and oriented to person, place and time. No focal deficit. Strength bilateral appropriate and equal Skin: Warm and dry. Normal turgor. No rash. Palpitation: Normal elasticity for age Abdomen: Abdomen is soft. Bowel sounds +. There is no abdominal tenderness, no guarding/rigidity no organomegaly Psych: normal insight and normal affect/mood MSK: no joint tenderness or swelling. Digits and nails normal, no deformity : kidney or bladder not palpable. Labs/imaging reviewed. Past medical history, past surgical history, family history, social history, allergy reviewed and noted as below Family hx: no hx of CKD. Rest non-contributory HIV/Hep B and C neg UA 2+ blood and neg prot Objective - Vital Signs/Intake and Output Vital Signs (last 24 hours): Temp Pulse Resp BP Pulse Ox 97.7 F 71 20 147/82 95 06/03/18 07:00 06/03/18 07:00 06/03/18 07:00 06/03/18 09:39 06/03/18 07:00 Intake and Output: 06/03/18 06/03/18 06:59 18:59 Intake Total 650 Balance 650 - Medications Medications: Current Medications Artificial Tears (Artificial Tears) 1 ml OU BID [facility] Last Admin: 06/03/18 09:39 Dose: 1 drop Aspirin (Aspirin Chewable) 81 mg PO DAILY [facility] Last Admin: 06/03/18 09:38 Dose: 81 mg Calcium Acetate (Phoslo) 667 mg PO BIDCC [facility] Last Admin: 06/03/18 08:23 Dose: 667 mg Carvedilol (Coreg) 12.5 mg PO BID [facility] Last Admin: 06/03/18 09:38 Dose: 12.5 mg Dextrose (Dextrose 50% Inj) 0 ml IV STAT PRN; Protocol PRN Reason: Hypoglycemia Protocol Dextrose (Glutose 15) 0 gm PO ONCE PRN; Protocol PRN Reason: Hypoglycemia Protocol Docusate Sodium (Colace) 100 mg PO DAILY [facility] Last Admin: 06/03/18 09:37 Dose: 100 mg Ergocalciferol (Drisdol 50,000 Intl Units Cap) 1 cap PO Q7D [facility] Last Admin: 05/31/18 15:50 Dose: 1 cap Famotidine (Pepcid) 20 mg PO DAILY [facility] Last Admin: 06/03/18 09:37 Dose: 20 mg Folic Acid (Folic Acid) 1 mg PO DAILY [facility] Last Admin: 06/03/18 09:37 Dose: 1 mg Furosemide (Lasix) 40 mg IVP DAILY [facility] Last Admin: 06/03/18 09:39 Dose: 40 mg Glucagon (Glucagen Diagnostic Kit) 0 mg IM STAT PRN; Protocol PRN Reason: Hypoglycemia Protocol Heparin Sodium (Porcine) (Heparin) 1,000 units IVP ONCE [facility] Heparin Sodium (Porcine) (Heparin) 5,000 units SC Q12 [facility] Last Admin: 06/03/18 09:38 Dose: 5,000 units Hydralazine HCl (Apresoline) 25 mg PO TID [facility] Last Admin: 06/03/18 09:37 Dose: 25 mg Dextrose (Dextrose 5% In Water 1000 Ml) 1,000 mls @ 0 mls/hr IV .Q0M PRN; Protocol PRN Reason: Hypoglycemia Protocol Nafcillin Sodium 2 gm/ Sodium (Chloride) 250 mls @ 250 mls/hr IVPB Q4H [facility]; Protocol Last Admin: 06/03/18 09:35 Dose: 250 mls/hr Insulin Aspart (Novolog) 0 unit SC ACHS [facility]; Protocol Last Admin: 06/03/18 08:23 Dose: 2 units Insulin Aspart (Novolog Mix 70/30 (70/30 Units/Ml)) 6 units SC AC [facility] Last Admin: 06/03/18 08:23 Dose: 6 units Insulin Glargine (Lantus) 20 unit SC HS [facility] Last Admin: 06/02/18 22:12 Dose: 20 units Isosorbide Mononitrate (Imdur Er) 30 mg PO DAILY [facility] Last Admin: 06/03/18 09:38 Dose: 30 mg Multivitamins (Hexavitamin) 1 tab PO DAILY [facility] Last Admin: 06/03/18 09:37 Dose: 1 tab Neomycin/Polymyxin/Bacitracin (Bacitracin/Neomycin/Polymyxin Opht Oint) 0 applic OD Q3H [facility] Stop: 06/06/18 19:46 Last Admin: 06/03/18 08:23 Dose: 0.5 inch Ondansetron HCl (Zofran Inj) 4 mg IVP Q6H PRN PRN Reason: Nausea/Vomiting Polyethylene Glycol (Miralax) 17 gm PO DAILY PRN PRN Reason: Constipation Rosuvastatin Calcium (Crestor) 5 mg PO HS [facility] Last Admin: 06/02/18 22:15 Dose: 5 mg Saccharomyces Boulardii (Florastor) 250 mg PO BID [facility] Last Admin: 06/03/18 09:37 Dose: 250 mg Sodium Bicarbonate (Sodium Bicarbonate Tab) 1,300 mg PO TID [facility] Last Admin: 06/03/18 09:38 Dose: 1,300 mg Thiamine HCl (Vitamin B1 Tab) 100 mg PO DAILY [facility] Last Admin: 06/03/18 09:38 Dose: 100 mg - Labs Labs: 06/03/18 07:45 06/03/18 07:45 APTT 55 SECONDS (21-34) H D 05/28/18 08:32
--- NOTE | 2018-06-03 18:05 | NM ---
Date of service: 06/03/2018 PROCEDURE: Three-phase bone scan of the feet and lower extremities HISTORY: LLE including foot, r/o osteomyelitis COMPARISON: Comparison is made to the previous x-ray of the feet dated 05/30/2018 previous white blood cells scan dated 05/30/2018. TECHNIQUE: Following administration of miCu of Tc MDP multiplanar whole body images were obtained. FINDINGS: There is mild hyperemia and increased soft tissue accumulation of the tracer in the right foot compared to the left noted. Degenerative uptake: Arthritic degenerative changes noted at the right ankle bilateral tarsal metatarsal and bilateral metatarsal-phalangeal joints. Degenerative changes are also noted in the knees and hip joints Other findings: None. IMPRESSION: No definite evidence of osteomyelitis. Hyperemia and creased blood flow in the right foot could be due to cellulitis. Arthritic degenerative changes.
[2018-06-03] MEDS: (Lantus) Insulin Glargine, Recombinant SC SCH (21:35)
[2018-06-04] MEDS: Bacitracin/Neomycin/Polymyxin OPHT OINT OD SCH ×8 (01:07→21:59)
[2018-06-04 07:35] LABS: BASO # 0.1 K/uL (0.0-0.2); BASO % 0.7 % (0.0-2.0); EOS # 0.2 K/uL (0.0-0.7); EOS % 2.1 % (0.0-4.0); HEMOGLOBIN 11.3 g/dL (12.0-18.0); LYMPH # 1.3 K/uL (1.0-4.3); LYMPH % 13.2 % (20.0-40.0); MEAN CELL VOLUME 88.6 fL (80.0-94.0); MEAN CORPUSCULAR HEMOGLOBIN 30.3 pg (27.0-31.0); MEAN CORPUSCULAR HGB CONC 34.2 g/dL (33.0-37.0); MEAN PLATELET VOLUME 9.1 fL (7.2-11.7); MONO # 0.7 K/uL (0.0-0.8); MONO % 7.3 % (0.0-10.0); NEUT # 7.8 K/uL (1.8-7.0); NEUT % 76.7 % (50.0-75.0); NRBC % 0.1 % (0.0-2.0); RBC 3.73 Mil/uL (4.40-5.90); RED CELL DISTRIBUTION WIDTH 14.2 % (11.5-14.5); WHITE BLOOD COUNT 10.2 K/uL (4.8-10.8)
[2018-06-04 07:46] LABS: ALB/GLOB RATIO 0.8 (1.0-2.1); ALBUMIN 2.8 g/dL (3.5-5.0); CALCIUM 7.7 mg/dl (8.6-10.4)
[2018-06-04] MEDS: (Novolog) Insulin Aspart, Recombinant 100 u/ml 10 ml vial SC SCH ×4 (07:51→21:59)
--- NOTE | 2018-06-04 08:13 | CP.PCM.PN ---
<Luisa Damon - Last Filed: 06/04/18 15:19> Subjective - Date & Time of Evaluation Date of Evaluation: 06/04/18 Time of Evaluation: 08:13 - Subjective Subjective: PGY-1 Luisa Damon D.O. Medicine progress note for Dr. Canales's service: Patient was seen and examined this morning. He is sitting up in a chair at bed side. He is still complaining of R eye pain and itching. He denies R foot pain. He is eating and sleeping well. Denies fevers/chills. Objective - Vital Signs/Intake and Output Vital Signs (last 24 hours): Temp Pulse Resp BP Pulse Ox 98.0 F 72 20 139/75 96 06/04/18 07:00 06/04/18 07:00 06/04/18 07:00 06/04/18 07:00 06/04/18 07:00 - Medications Medications: Current Medications Artificial Tears (Artificial Tears) 1 ml OU BID [facility] Last Admin: 06/03/18 19:55 Dose: 1 drop Aspirin (Aspirin Chewable) 81 mg PO DAILY [facility] Last Admin: 06/03/18 09:38 Dose: 81 mg Calcium Acetate (Phoslo) 667 mg PO BIDCC [facility] Last Admin: 06/03/18 19:54 Dose: 667 mg Carvedilol (Coreg) 12.5 mg PO BID [facility] Last Admin: 06/03/18 19:55 Dose: 12.5 mg Dextrose (Dextrose 50% Inj) 0 ml IV STAT PRN; Protocol PRN Reason: Hypoglycemia Protocol Dextrose (Glutose 15) 0 gm PO ONCE PRN; Protocol PRN Reason: Hypoglycemia Protocol Docusate Sodium (Colace) 100 mg PO DAILY [facility] Last Admin: 06/03/18 09:37 Dose: 100 mg Ergocalciferol (Drisdol 50,000 Intl Units Cap) 1 cap PO Q7D [facility] Last Admin: 05/31/18 15:50 Dose: 1 cap Famotidine (Pepcid) 20 mg PO DAILY [facility] Last Admin: 06/03/18 09:37 Dose: 20 mg Folic Acid (Folic Acid) 1 mg PO DAILY [facility] Last Admin: 06/03/18 09:37 Dose: 1 mg Furosemide (Lasix) 40 mg IVP DAILY [facility] Last Admin: 06/03/18 09:39 Dose: 40 mg Glucagon (Glucagen Diagnostic Kit) 0 mg IM STAT PRN; Protocol PRN Reason: Hypoglycemia Protocol Heparin Sodium (Porcine) (Heparin) 5,000 units SC Q12 [facility] Last Admin: 06/03/18 21:35 Dose: 5,000 units Hydralazine HCl (Apresoline) 25 mg PO TID [facility] Last Admin: 06/03/18 19:54 Dose: 25 mg Dextrose (Dextrose 5% In Water 1000 Ml) 1,000 mls @ 0 mls/hr IV .Q0M PRN; Protocol PRN Reason: Hypoglycemia Protocol Nafcillin Sodium 2 gm/ Sodium (Chloride) 250 mls @ 250 mls/hr IVPB Q4H [facility]; Protocol Last Admin: 06/04/18 05:49 Dose: 250 mls/hr Insulin Aspart (Novolog) 0 unit SC ACHS [facility]; Protocol Last Admin: 06/04/18 07:51 Dose: Not Given Insulin Aspart (Novolog Mix 70/30 (70/30 Units/Ml)) 6 units SC AC [facility] Last Admin: 06/03/18 19:56 Dose: 6 units Insulin Glargine (Lantus) 20 unit SC HS [facility] Last Admin: 06/03/18 21:35 Dose: 20 units Isosorbide Mononitrate (Imdur Er) 30 mg PO DAILY [facility] Last Admin: 06/03/18 09:38 Dose: 30 mg Multivitamins (Hexavitamin) 1 tab PO DAILY [facility] Last Admin: 06/03/18 09:37 Dose: 1 tab Neomycin/Polymyxin/Bacitracin (Bacitracin/Neomycin/Polymyxin Opht Oint) 0 applic OD Q3H [facility] Stop: 06/06/18 19:46 Last Admin: 06/04/18 05:49 Dose: 0.5 inch Ondansetron HCl (Zofran Inj) 4 mg IVP Q6H PRN PRN Reason: Nausea/Vomiting Polyethylene Glycol (Miralax) 17 gm PO DAILY PRN PRN Reason: Constipation Rosuvastatin Calcium (Crestor) 5 mg PO HS [facility] Last Admin: 06/03/18 21:35 Dose: 5 mg Saccharomyces Boulardii (Florastor) 250 mg PO BID [facility] Last Admin: 06/03/18 19:53 Dose: 250 mg Sodium Bicarbonate (Sodium Bicarbonate Tab) 1,300 mg PO TID [facility] Last Admin: 06/03/18 19:53 Dose: 1,300 mg Thiamine HCl (Vitamin B1 Tab) 100 mg PO DAILY [facility] Last Admin: 06/03/18 09:38 Dose: 100 mg - Labs Labs: 06/04/18 07:08 06/04/18 07:08 APTT 55 SECONDS (21-34) H D 05/28/18 08:32 - Constitutional Appears: Non-toxic, No Acute Distress - Head Exam Head Exam: ATRAUMATIC, NORMAL INSPECTION, NORMOCEPHALIC - Eye Exam Eye Exam: Conjunctival injection (R eye- worsening), EOMI - ENT Exam ENT Exam: Mucous Membranes Moist - Neck Exam Neck Exam: Normal Inspection - Respiratory Exam Respiratory Exam: Clear to Ausculation Bilateral, NORMAL BREATHING PATTERN. absent: Respiratory Distress - Cardiovascular Exam Cardiovascular Exam: REGULAR RHYTHM, +S1, +S2 - GI/Abdominal Exam GI & Abdominal Exam: Soft. absent: Tenderness - Rectal Exam Rectal Exam: Deferred - Extremities Exam Extremities Exam: absent: Pedal Edema, Tenderness Additional comments: R foot wrapped in anay bandage s/p punch biopsies scabs on b/l shins, largest with some dry ulceration on L anterior tibia - Neurological Exam Neurological Exam: Alert, Awake, CN II-XII Intact, Normal Gait, Oriented x3 - Psychiatric Exam Psychiatric exam: Normal Affect, Normal Mood - Skin Skin Exam: Dry, Normal Color, Warm Assessment and Plan - Assessment and Plan (Free Text) Assessment: Patient is a 48 yo male with a history of uncontrolled T2DM and CHF s/p AICD who presented with generalized weakness and falls. Required ICU admission for 1 day due to hypotension- no pressors. Now much clinically improved and downgraded to telemetry unit. Patient's initial blood Cx grew micrococcus species. Subsequent 2 sets grew Staph aureus. INA did not demonstrate vegetations. Negative Certec scan. Bone scan shows possible R foot cellulitis. Repeat Blood Cx negative thus far. Plan: Sepsis with Staph aureus bacteremia- suspect osteomyelitis due to R foot amputation site and/or L anterior tibia ulceration and/or endocarditis - Most recent fever 05/27 100.7 - Leukocytosis and bandemia resolved - Lactate 1.8 - Procal 27.53->8.3- repeat on 06/06 - ESR 72 - CXR: no active disease - TTE: EF 26%, no vegetations - INA: moderately reduced EF, no vegetations or thrombi - Blood Cx: Micrococcus species x2 - Repeat Blood Cx: Staph aureus x4 - Repeat Blood Cx no growth >48 hrs - Urine, stool Cx no growth - R foot XR: no evidence of osteomyelitis - F/u punch biopsies - Certec scan negative - LE arterial and venous studies: no significant abnormalities per vasc surgery - 3 view bone scans of b/l LEs: no evidence of osteomyelitis, possible R foot cellulitis - Nafcillin 2 g IV Q4H- started 06/02 - Florastor 250 mg PO BID - ICU consulted - Surgery consulted (James)- no intervention - ID consulted (Charly)- f/u recs for abx duration and PICC - Podiatry consulted (Ryder)- no intervention at this time - PT/OT- rec home Renal insufficiency, improving- suspect ATN due to sepsis and/or CHF in addition to CKD from DM and HTN - BUN 37->91->64 - Cr 1.6->5.1->3.5 - Avoid ACEI/ARB and other nephrotoxic drugs - Renally dose meds - Maintain normotension - No IVF due to CHF - Nephrology consulted (Junior/Vlad)- no need for dialysis yet but will continue to follow, continue Lasix R eye conjunctivitis, worsening - Artificial tears BID - Bacitracin/Neomycin/polymyxin OD Q3H while awake x7 days - Ophthalmology consulted (Doron)- f/u recs Elevated troponin, improved- h/o nonischemic cardiomyopathy (cath 10/19), suspect 2/2 kidney disease, doubt NSTEMI - Trop: 0.17->0.233->0.222 - EKG: no ST elevations, ventricular-paced rhythm - Cardiology consulted (Hupart)- no heparin or Plavix Elevated D-dimer (1468)- suspect 2/2 kidney disease - V/Q scan: low probability of PE - Cannot get CTA due to kidney function Systolic heart failure (HFrEF)- s/p AICD - BNP 11,300 - Echo: EF 26% - Strict I's & O's - Daily weights - Fluid restriction <1200 mL/day - b/l lower lung field rales - CXR 05/29: no active disease - ASA 81 mg PO daily - Coreg 12.5 mg PO BID - Lasix 40 mg IV daily - Hydralazine 25 mg PO TID - Isosorbide nitrate 30 mg PO daily - Cardiology consulted (Hupart) Secondary hyperparathyroidism- 2/2 kidney disease - Elevated PTH (153) - Low Ca (7) - Elevated Ph (5.2) - Low Vit D (<12.5) - Phoslo 667 mg PO BID - Ergocalciferol 50,000 QWK Type 2 diabetes mellitus - A1c 7.8 - Hypoglycemia protocol - Accuchecks ACHS with ISS - Increase Lantus to 20 units SC QHS - Increase Aspart to 6 u AC Dyslipidemia - Choles 112, LDL<30, HDL 12, TG 320-765 (suspect 2nd value is not fasting) - Crestor 5 mg PO QHS Hyponatremia, resolved - Avoid correction >6-8 mEq/24 hrs - TSH low (0.31), T4 wnl (1.5) - Serum osm 316 - Urine osm 281 - Urine Na 27, K 6.4 - AM cortisol elevated 29.7 - Sodium bicarb 1300 mg PO TID Thrombocytopenia, resolved- suspect 2/2 kidney disease - Monitor CBC - Hepatitis negative - HIV negative Constipation, resolved - Miralax 17 g PO daily PRN - Colace 100 mg PO daily Ppx: VTE: heparin 5000 u SC Q12H GI: Pepcid 20 mg PO daily Code status: full code Case was discussed with attending, Dr. Canales. <Rohini Canales - Last Filed: 06/04/18 18:33> Objective - Vital Signs/Intake and Output Vital Signs (last 24 hours): Temp Pulse Resp BP Pulse Ox 98.1 F 66 20 159/83 H 95 06/04/18 15:00 06/04/18 15:00 06/04/18 15:00 06/04/18 17:36 06/04/18 15:00 Intake and Output: 06/04/18 06/04/18 06:59 18:59 Intake Total 1400 Balance 1400 - Medications Medications: Current Medications Artificial Tears (Artificial Tears) 1 ml OU BID [facility] Last Admin: 06/04/18 17:37 Dose: 1 drop Aspirin (Aspirin Chewable) 81 mg PO DAILY [facility] Last Admin: 06/04/18 09:02 Dose: 81 mg Calcium Acetate (Phoslo) 667 mg PO BIDCC [facility] Last Admin: 06/04/18 17:36 Dose: 667 mg Carvedilol (Coreg) 12.5 mg PO BID [facility] Last Admin: 06/04/18 17:36 Dose: 12.5 mg Dextrose (Dextrose 50% Inj) 0 ml IV STAT PRN; Protocol PRN Reason: Hypoglycemia Protocol Dextrose (Glutose 15) 0 gm PO ONCE PRN; Protocol PRN Reason: Hypoglycemia Protocol Docusate Sodium (Colace) 100 mg PO DAILY [facility] Last Admin: 06/04/18 09:01 Dose: 100 mg Ergocalciferol (Drisdol 50,000 Intl Units Cap) 1 cap PO Q7D [facility] Last Admin: 05/31/18 15:50 Dose: 1 cap Famotidine (Pepcid) 20 mg PO DAILY [facility] Last Admin: 06/04/18 09:02 Dose: 20 mg Folic Acid (Folic Acid) 1 mg PO DAILY [facility] Last Admin: 06/04/18 09:00 Dose: 1 mg Furosemide (Lasix) 40 mg IVP DAILY [facility] Last Admin: 06/04/18 09:03 Dose: 40 mg Glucagon (Glucagen Diagnostic Kit) 0 mg IM STAT PRN; Protocol PRN Reason: Hypoglycemia Protocol Heparin Sodium (Porcine) (Heparin) 5,000 units SC Q12 [facility] Last Admin: 06/04/18 09:03 Dose: 5,000 units Hydralazine HCl (Apresoline) 25 mg PO TID [facility] Last Admin: 06/04/18 17:36 Dose: 25 mg Dextrose (Dextrose 5% In Water 1000 Ml) 1,000 mls @ 0 mls/hr IV .Q0M PRN; Protocol PRN Reason: Hypoglycemia Protocol Nafcillin Sodium 2 gm/ Sodium (Chloride) 250 mls @ 250 mls/hr IVPB Q4H [facility]; Protocol Last Admin: 06/04/18 17:37 Dose: 250 mls/hr Insulin Aspart (Novolog) 0 unit SC ACHS [facility]; Protocol Last Admin: 06/04/18 16:19 Dose: Not Given Insulin Aspart (Novolog Mix 70/30 (70/30 Units/Ml)) 6 units SC AC [facility] Last Admin: 06/04/18 17:35 Dose: 6 units Insulin Glargine (Lantus) 20 unit SC HS [facility] Last Admin: 06/03/18 21:35 Dose: 20 units Isosorbide Mononitrate (Imdur Er) 30 mg PO DAILY [facility] Last Admin: 06/04/18 09:01 Dose: 30 mg Multivitamins (Hexavitamin) 1 tab PO DAILY [facility] Last Admin: 06/04/18 09:03 Dose: 1 tab Neomycin/Polymyxin/Bacitracin (Bacitracin/Neomycin/Polymyxin Opht Oint) 0 applic OD Q3H [facility] Stop: 06/06/18 19:46 Last Admin: 06/04/18 17:37 Dose: 0.5 inch Ondansetron HCl (Zofran Inj) 4 mg IVP Q6H PRN PRN Reason: Nausea/Vomiting Polyethylene Glycol (Miralax) 17 gm PO DAILY PRN PRN Reason: Constipation Rosuvastatin Calcium (Crestor) 5 mg PO HS [facility] Last Admin: 06/03/18 21:35 Dose: 5 mg Saccharomyces Boulardii (Florastor) 250 mg PO BID [facility] Last Admin: 06/04/18 17:36 Dose: 250 mg Sodium Bicarbonate (Sodium Bicarbonate Tab) 1,300 mg PO BID [facility] Last Admin: 06/04/18 17:44 Dose: 1,300 mg Thiamine HCl (Vitamin B1 Tab) 100 mg PO DAILY [facility] Last Admin: 06/04/18 09:00 Dose: 100 mg - Labs Labs: 06/04/18 07:08 06/04/18 07:08 APTT 55 SECONDS (21-34) H D 05/28/18 08:32 Attending/Attestation - Attestation I have personally seen and examined this patient.: Yes I have fully participated in the care of the patient.: Yes I have reviewed all pertinent clinical information, including history, physical exam and plan: Yes Notes (Text): seen and examined,no complain,right eye is red,no changes noted,no pain continue IV Nafcillin,follow Dr Parks's recommendation Today's sodium 137,creatinine 3.5.nephrology follow up appreciated Assessment and the plan discussed with the resident and I agree with the documentation
[2018-06-04] MEDS: (Novolog Mix 70/30) Insulin Aspart/Insulin Aspar 100 units/ml SC SCH ×3 (08:30→17:35)
[2018-06-04] MEDS: Saccharomyces Boulardi 250 mg Cap PO SCH ×2 (09:01→17:36)
[2018-06-04] MEDS: Multiple Vitamins Tab PO SCH (09:03)
[2018-06-04] MEDS: Aritificial Tears (15ml) OU SCH ×2 (09:04→17:37)
[2018-06-04] MEDS ORDERED: Potassium Chloride 20 mEq ER Tab PO SCH (10:15)
--- NOTE | 2018-06-04 15:46 | CP.PCM.PN ---
Subjective - Date & Time of Evaluation Date of Evaluation: 06/04/18 Time of Evaluation: 15:46 - Subjective Subjective: Nephrology Consultation Note Assessment: Stable non-oliguric Acute Kidney Injury (N17.9) likely ATN due to sepsis (? 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 renal fxn stable today. anticipate gradual improvement Hypertension control with meds as ordered. Maintain hemodynamics stable. Avoid hypotension. Patient not on ACEI/ARB due to recent EL meds for CHF being optimized by cardiology Monitor Input/Output, daily weights and renal function with basic metabolic panel continue with lasix added sodium bicarb 1300 mg bid avoid correction in serum Na >6-8 meq/24 hrs on weekly Vit D Check urine analysis, spot protein/creatinine, albumin/creatinine ratio, urine for Na/OSmol, renal sonogram Check for 25-OH vitamin D, iPTH, phosphorus level. will check c3/c4/anca as well Dose meds/antibiotics for reduced GFR. Avoid fleets enema/magnesium based laxatives. Avoid nephrotoxins/NSAIDs/ iodinated contrast (unless needed emergently) Glycemic control Further work up for as per primary team Thanks for allowing me to participate in care of your patient. Will follow patient with you. Please call if any Qs. had d/w team Dr Max Chu Office: [phone] Subjective: Noted events overnight. Patients feels better Denies chest pain, palpitation, shortness of breath, leg swelling. All other negative. INA neg for IE Physical Examination: General Appearance: Comfortable, in no acute respiratory distress, co-operative . Vitals reviewed and noted as below Head; Atraumatic, normocephalic ENT: no ulcers no thrush. Tongue is midline. Oropharynx: no rash or ulcers. EYES: Pupils are equal, round and reactive to light accommodation. Eye muscles and extraocular movement intact. Sclera is anicteric. Neck; supple no lymphadenopathy, no thyromegaly or bruit Lungs: Normal respiratory rate/effort. Breath sounds bilateral improved at bases with crackles Heart: Normal rate. s1s2 normal. No rub or gallop. Extremities: no edema. No varicose veins. Rt foot toe amputations in past with superificial scab Neurological: Patient is alert, awake and oriented to person, place and time. No focal deficit. Strength bilateral appropriate and equal Skin: Warm and dry. Normal turgor. No rash. Palpitation: Normal elasticity for age Abdomen: Abdomen is soft. Bowel sounds +. There is no abdominal tenderness, no guarding/rigidity no organomegaly Psych: normal insight and normal affect/mood MSK: no joint tenderness or swelling. Digits and nails normal, no deformity : kidney or bladder not palpable. Labs/imaging reviewed. Past medical history, past surgical history, family history, social history, allergy reviewed and noted as below Family hx: no hx of CKD. Rest non-contributory HIV/Hep B and C neg UA 2+ blood and neg prot Objective - Vital Signs/Intake and Output Vital Signs (last 24 hours): Temp Pulse Resp BP Pulse Ox 98.1 F 66 20 144/73 95 06/04/18 15:00 06/04/18 15:00 06/04/18 15:00 06/04/18 15:00 06/04/18 15:00 Intake and Output: 06/04/18 06/04/18 06:59 18:59 Intake Total 1400 Balance 1400 - Medications Medications: Current Medications Artificial Tears (Artificial Tears) 1 ml OU BID [facility] Last Admin: 06/04/18 09:04 Dose: 1 drop Aspirin (Aspirin Chewable) 81 mg PO DAILY [facility] Last Admin: 06/04/18 09:02 Dose: 81 mg Calcium Acetate (Phoslo) 667 mg PO BIDCC [facility] Last Admin: 06/04/18 08:37 Dose: 667 mg Carvedilol (Coreg) 12.5 mg PO BID [facility] Last Admin: 06/04/18 09:02 Dose: 12.5 mg Dextrose (Dextrose 50% Inj) 0 ml IV STAT PRN; Protocol PRN Reason: Hypoglycemia Protocol Dextrose (Glutose 15) 0 gm PO ONCE PRN; Protocol PRN Reason: Hypoglycemia Protocol Docusate Sodium (Colace) 100 mg PO DAILY [facility] Last Admin: 06/04/18 09:01 Dose: 100 mg Ergocalciferol (Drisdol 50,000 Intl Units Cap) 1 cap PO Q7D [facility] Last Admin: 05/31/18 15:50 Dose: 1 cap Famotidine (Pepcid) 20 mg PO DAILY [facility] Last Admin: 06/04/18 09:02 Dose: 20 mg Folic Acid (Folic Acid) 1 mg PO DAILY [facility] Last Admin: 06/04/18 09:00 Dose: 1 mg Furosemide (Lasix) 40 mg IVP DAILY [facility] Last Admin: 06/04/18 09:03 Dose: 40 mg Glucagon (Glucagen Diagnostic Kit) 0 mg IM STAT PRN; Protocol PRN Reason: Hypoglycemia Protocol Heparin Sodium (Porcine) (Heparin) 5,000 units SC Q12 [facility] Last Admin: 06/04/18 09:03 Dose: 5,000 units Hydralazine HCl (Apresoline) 25 mg PO TID [facility] Last Admin: 06/04/18 13:10 Dose: 25 mg Dextrose (Dextrose 5% In Water 1000 Ml) 1,000 mls @ 0 mls/hr IV .Q0M PRN; Protocol PRN Reason: Hypoglycemia Protocol Nafcillin Sodium 2 gm/ Sodium (Chloride) 250 mls @ 250 mls/hr IVPB Q4H [facility]; Protocol Last Admin: 06/04/18 13:38 Dose: 250 mls/hr Insulin Aspart (Novolog) 0 unit SC ACHS [facility]; Protocol Last Admin: 06/04/18 11:34 Dose: Not Given Insulin Aspart (Novolog Mix 70/30 (70/30 Units/Ml)) 6 units SC AC [facility] Last Admin: 06/04/18 12:35 Dose: 6 units Insulin Glargine (Lantus) 20 unit SC HS [facility] Last Admin: 06/03/18 21:35 Dose: 20 units Isosorbide Mononitrate (Imdur Er) 30 mg PO DAILY [facility] Last Admin: 06/04/18 09:01 Dose: 30 mg Multivitamins (Hexavitamin) 1 tab PO DAILY [facility] Last Admin: 06/04/18 09:03 Dose: 1 tab Neomycin/Polymyxin/Bacitracin (Bacitracin/Neomycin/Polymyxin Opht Oint) 0 applic OD Q3H [facility] Stop: 06/06/18 19:46 Last Admin: 12/01/18 13:38 Dose: 0.5 inch Ondansetron HCl (Zofran Inj) 4 mg IVP Q6H PRN PRN Reason: Nausea/Vomiting Polyethylene Glycol (Miralax) 17 gm PO DAILY PRN PRN Reason: Constipation Rosuvastatin Calcium (Crestor) 5 mg PO [facility] Last Admin: 06/03/18 21:35 Dose: 5 mg Saccharomyces Boulardii (Florastor) 250 mg PO BID [facility] Last Admin: 06/04/18 09:01 Dose: 250 mg Sodium Bicarbonate (Sodium Bicarbonate Tab) 1,300 mg PO BID [facility] Thiamine HCl (Vitamin B1 Tab) 100 mg PO DAILY [facility] Last Admin: 06/04/18 09:00 Dose: 100 mg - Labs Labs: 06/04/18 07:08 06/04/18 07:08 APTT 55 SECONDS (21-34) H D 05/28/18 08:32
[2018-06-04] MEDS: (Lantus) Insulin Glargine, Recombinant SC SCH (21:58)
[2018-06-05] MEDS: Bacitracin/Neomycin/Polymyxin OPHT OINT OD SCH ×8 (01:02→21:55)
--- NOTE | 2018-06-05 07:59 | CP.PCM.PN ---
<Luisa Damon - Last Filed: 06/05/18 11:45> Subjective - Date & Time of Evaluation Date of Evaluation: 06/05/18 Time of Evaluation: 07:58 - Subjective Subjective: PGY-1 Luisa Damon D.O. Medicine progress note for Dr. King's service: Patient was seen and examined this morning. Patient is feeling well with the except of his R eye. He has frequent pruritis and pain. Visual acuity intact. Informed patient that we will reach out to ophtho again, as tomorrow is his last scheduled day of eye drops. Patient denies pain in his legs/feet. He is eating and sleeping well. Denies fevers/chills. Diarrhea has resolved. Objective - Vital Signs/Intake and Output Vital Signs (last 24 hours): Temp Pulse Resp BP Pulse Ox 98 F 65 20 137/67 96 06/05/18 00:00 06/05/18 00:00 06/05/18 00:00 06/05/18 00:00 06/05/18 00:00 Intake and Output: 06/05/18 06/05/18 06:59 18:59 Intake Total 850 Balance 850 - Medications Medications: Current Medications Artificial Tears (Artificial Tears) 1 ml OU BID [facility] Last Admin: 06/04/18 17:37 Dose: 1 drop Aspirin (Aspirin Chewable) 81 mg PO DAILY [facility] Last Admin: 06/04/18 09:02 Dose: 81 mg Calcium Acetate (Phoslo) 667 mg PO BIDCC [facility] Last Admin: 06/04/18 17:36 Dose: 667 mg Carvedilol (Coreg) 12.5 mg PO BID [facility] Last Admin: 06/04/18 17:36 Dose: 12.5 mg Dextrose (Dextrose 50% Inj) 0 ml IV STAT PRN; Protocol PRN Reason: Hypoglycemia Protocol Dextrose (Glutose 15) 0 gm PO ONCE PRN; Protocol PRN Reason: Hypoglycemia Protocol Docusate Sodium (Colace) 100 mg PO DAILY [facility] Last Admin: 06/04/18 09:01 Dose: 100 mg Ergocalciferol (Drisdol 50,000 Intl Units Cap) 1 cap PO Q7D [facility] Last Admin: 05/31/18 15:50 Dose: 1 cap Famotidine (Pepcid) 20 mg PO DAILY [facility] Last Admin: 06/04/18 09:02 Dose: 20 mg Folic Acid (Folic Acid) 1 mg PO DAILY [facility] Last Admin: 06/04/18 09:00 Dose: 1 mg Furosemide (Lasix) 40 mg IVP DAILY [facility] Last Admin: 06/04/18 09:03 Dose: 40 mg Glucagon (Glucagen Diagnostic Kit) 0 mg IM STAT PRN; Protocol PRN Reason: Hypoglycemia Protocol Heparin Sodium (Porcine) (Heparin) 5,000 units SC Q12 [facility] Last Admin: 06/04/18 21:58 Dose: 5,000 units Hydralazine HCl (Apresoline) 25 mg PO TID [facility] Last Admin: 06/04/18 17:36 Dose: 25 mg Dextrose (Dextrose 5% In Water 1000 Ml) 1,000 mls @ 0 mls/hr IV .Q0M PRN; Protocol PRN Reason: Hypoglycemia Protocol Nafcillin Sodium 2 gm/ Sodium (Chloride) 250 mls @ 250 mls/hr IVPB Q4H [facility]; Protocol Last Admin: 06/05/18 05:07 Dose: 250 mls/hr Insulin Aspart (Novolog) 0 unit SC ACHS [facility]; Protocol Last Admin: 06/04/18 21:59 Dose: Not Given Insulin Aspart (Novolog Mix 70/30 (70/30 Units/Ml)) 6 units SC AC [facility] Last Admin: 06/04/18 17:35 Dose: 6 units Insulin Glargine (Lantus) 20 unit SC HS [facility] Last Admin: 06/04/18 21:58 Dose: 20 units Isosorbide Mononitrate (Imdur Er) 30 mg PO DAILY [facility] Last Admin: 06/04/18 09:01 Dose: 30 mg Multivitamins (Hexavitamin) 1 tab PO DAILY [facility] Last Admin: 06/04/18 09:03 Dose: 1 tab Neomycin/Polymyxin/Bacitracin (Bacitracin/Neomycin/Polymyxin Opht Oint) 0 applic OD Q3H [facility] Stop: 06/06/18 19:46 Last Admin: 06/05/18 05:09 Dose: 0.5 inch Ondansetron HCl (Zofran Inj) 4 mg IVP Q6H PRN PRN Reason: Nausea/Vomiting Polyethylene Glycol (Miralax) 17 gm PO DAILY PRN PRN Reason: Constipation Rosuvastatin Calcium (Crestor) 5 mg PO HS [facility] Last Admin: 06/04/18 22:01 Dose: 5 mg Saccharomyces Boulardii (Florastor) 250 mg PO BID [facility] Last Admin: 06/04/18 17:36 Dose: 250 mg Sodium Bicarbonate (Sodium Bicarbonate Tab) 1,300 mg PO BID [facility] Last Admin: 06/04/18 17:44 Dose: 1,300 mg Thiamine HCl (Vitamin B1 Tab) 100 mg PO DAILY [facility] Last Admin: 06/04/18 09:00 Dose: 100 mg - Labs Labs: 06/04/18 07:08 06/04/18 07:08 APTT 55 SECONDS (21-34) H D 05/28/18 08:32 - Constitutional Appears: No Acute Distress, Unkempt - Head Exam Head Exam: ATRAUMATIC, NORMAL INSPECTION - Eye Exam Eye Exam: Conjunctival injection (R eye- worsening, tearing), EOMI, PERRL - ENT Exam ENT Exam: Mucous Membranes Moist - Neck Exam Neck Exam: Normal Inspection - Respiratory Exam Respiratory Exam: Clear to Ausculation Bilateral, NORMAL BREATHING PATTERN - Cardiovascular Exam Cardiovascular Exam: REGULAR RHYTHM, +S1, +S2 - GI/Abdominal Exam GI & Abdominal Exam: Soft. absent: Tenderness - Rectal Exam Rectal Exam: Deferred - Extremities Exam Additional comments: R foot with dressings s/p punch biopsies- will change today scabs on b/l shins, largest with some dry ulceration on L anterior tibia- no bleeding or discharge/drainage - Neurological Exam Neurological Exam: Alert, Awake, CN II-XII Intact, Normal Gait, Oriented x3 Neuro motor strength exam: Left Upper Extremity: 5, Right Upper Extremity: 5, Left Lower Extremity: 5, Right Lower Extremity: 5 - Psychiatric Exam Psychiatric exam: Normal Affect, Normal Mood - Skin Skin Exam: Dry, Normal Color, Warm Assessment and Plan - Assessment and Plan (Free Text) Assessment: Patient is a 48 yo male with a history of uncontrolled T2DM and CHF s/p AICD who presented with generalized weakness and falls. Required ICU admission for 1 day due to hypotension- no pressors. Now much clinically improved and downgraded to telemetry unit. Patient's initial blood Cx grew micrococcus species. Subsequent 2 sets grew Staph aureus. INA did not demonstrate vegetations. Negative Certec scan. Bone scan shows possible R foot cellulitis. Repeat Blood Cx continue to grow GPC. Will f/u with ID for possible abx change. R eye conjunctivitis p ersists. Will f/u with ophtho for recs. Plan: Sepsis with Staph aureus bacteremia- suspect source is cellulits due to R foot amputation site, r/o endocarditis, osteomyelitis - Most recent fever 05/27 100.7 - Leukocytosis and bandemia resolved - Lactate 1.8 - Procal 27.53->8.3- repeat on 06/06 - ESR 72 - CXR: no active disease - TTE: EF 26%, no vegetations - INA: moderately reduced EF, no vegetations or thrombi - Blood Cx: Micrococcus species x2 - Repeat Blood Cx: Staph aureus x4 - Repeat Blood Cx 06/02 no growth >48 hrs - Repeat Blood Cx 06/03: GPC - Urine, stool Cx no growth - R foot XR: no evidence of osteomyelitis - Certec scan negative - LE arterial and venous studies: no significant abnormalities per vasc surgery - 3 view bone scans of b/l LEs: no evidence of osteomyelitis, possible R foot cellulitis - F/u punch biopsies form R foot - Nafcillin 2 g IV Q4H- started 06/02 - Florastor 250 mg PO BID - ICU consulted - Surgery consulted (James)- no intervention - ID consulted (Charly)- f/u recs for abx duration and PICC - Podiatry consulted (Ryder)- no intervention at this time - PT/OT- rec home Renal insufficiency, improving- suspect ATN due to sepsis and/or CHF in addition to CKD from DM and HTN - BUN 37->91->53 - Cr 1.6->5.1->3.1 - Avoid ACEI/ARB and other nephrotoxic drugs - Renally dose meds - Maintain normotension - No IVF due to CHF - Nephrology consulted (Junior/Vlad)- no need for dialysis yet but will continue to follow, continue Lasix R eye conjunctivitis, worsening - Artificial tears BID - Bacitracin/Neomycin/polymyxin OD Q3H while awake x7 days- 06/06 last day - Ophthalmology consulted (Doron)- f/u recs Systolic heart failure (HFrEF)- s/p AICD - BNP 11,300 - Echo: EF 26% - Strict I's & O's - Daily weights - Fluid restriction <1200 mL/day - b/l lower lung field rales- resolved - CXR 05/29: no active disease - ASA 81 mg PO daily - Coreg 12.5 mg PO BID - Lasix 40 mg PO daily - Hydralazine 25 mg PO TID - Isosorbide nitrate 30 mg PO daily - Cardiology consulted ([facility]) Type 2 diabetes mellitus - A1c 7.8 - Hypoglycemia protocol - Accuchecks ACHS with ISS - Lantus 20 units SC QHS - Aspart 6 u AC Transaminitis, worsening - AST 82, ALT 78 - Avoid hepatotoxic drugs - Hold statin Secondary hyperparathyroidism- 2/2 kidney disease - Elevated PTH (153) - Low Ca (7) - Elevated Ph (5.2) - Low Vit D (<12.5) - Phoslo 667 mg PO BID - Ergocalciferol 50,000 QWK Dyslipidemia - Choles 112, LDL<30, HDL 12, TG 320-765 (suspect 2nd value is not fasting) - Crestor 5 mg PO QHS- hold due to transaminitis Elevated troponin, improved- h/o nonischemic cardiomyopathy (cath 10/19), suspect 2/2 kidney disease, doubt NSTEMI - Trop: 0.17->0.233->0.222 - EKG: no ST elevations, ventricular-paced rhythm - Cardiology consulted ([facility])- no heparin or Plavix Elevated D-dimer (1468)- suspect 2/2 kidney disease - V/Q scan: low probability of PE - Cannot get CTA due to kidney function Hyponatremia, resolved - Avoid correction >6-8 mEq/24 hrs - TSH low (0.31), T4 wnl (1.5) - Serum osm 316 - Urine osm 281 - Urine Na 27, K 6.4 - AM cortisol elevated 29.7 - Sodium bicarb 1300 mg PO TID Thrombocytopenia, resolved- suspect 2/2 kidney disease - Monitor CBC - Hepatitis negative - HIV negative Constipation, resolved - Miralax 17 g PO daily PRN - Colace 100 mg PO daily - FOBT negative Ppx: VTE: heparin 5000 u SC Q12H GI: Pepcid 20 mg PO daily Code status: full code Case was discussed with attending, Dr. King. <Rosetta King V - Last Filed: 06/05/18 22:17> Objective - Vital Signs/Intake and Output Vital Signs (last 24 hours): Temp Pulse Resp BP Pulse Ox 98.5 F 77 20 147/75 96 06/05/18 16:00 06/05/18 16:00 06/05/18 16:00 06/05/18 16:00 06/05/18 16:00 Intake and Output: 06/05/18 06/05/18 06:59 18:59 Intake Total 850 1000 Balance 850 1000 - Medications Medications: Current Medications Artificial Tears (Artificial Tears) 1 ml OU BID [facility] Last Admin: 06/05/18 09:25 Dose: 1 drop Aspirin (Aspirin Chewable) 81 mg PO DAILY [facility] Last Admin: 06/05/18 09:23 Dose: 81 mg [facility]) [facility] Last Admin: 06/05/18 09:00 Dose: 667 mg Carvedilol (Coreg) 12.5 mg PO BID [facility] Last Admin: 06/05/18 09:30 Dose: 12.5 mg Dextrose (Dextrose 50% Inj) 0 ml IV STAT PRN; Protocol PRN Reason: Hypoglycemia Protocol Dextrose (Glutose 15) 0 gm PO ONCE PRN; Protocol PRN Reason: Hypoglycemia Protocol Docusate Sodium (Colace) 100 mg PO DAILY [facility] Last Admin: 06/05/18 09:22 Dose: 100 mg Ergocalciferol (Drisdol 50,000 Intl Units Cap) 1 cap PO Q7D [facility] Last Admin: 05/31/18 15:50 Dose: 1 cap Famotidine (Pepcid) 20 mg PO DAILY [facility] Last Admin: 06/05/18 09:24 Dose: 20 mg Folic Acid (Folic Acid) 1 mg PO DAILY [facility] Last Admin: 06/05/18 09:23 Dose: 1 mg Furosemide (Lasix) 40 mg PO DAILY [facility] Glucagon (Glucagen Diagnostic Kit) 0 mg IM STAT PRN; Protocol PRN Reason: Hypoglycemia Protocol Heparin Sodium (Porcine) (Heparin) 5,000 units SC Q12 [facility] Last Admin: 06/05/18 09:30 Dose: 5,000 units Hydralazine HCl (Apresoline) 25 mg PO TID [facility] Last Admin: 06/05/18 13:51 Dose: 25 mg Dextrose (Dextrose 5% In Water 1000 Ml) 1,000 mls @ 0 mls/hr IV .Q0M PRN; Protocol PRN Reason: Hypoglycemia Protocol Nafcillin Sodium 2 gm/ Sodium (Chloride) 250 mls @ 250 mls/hr IVPB Q4H [facility]; Protocol Last Admin: 06/05/18 13:48 Dose: 250 mls/hr Insulin Aspart (Novolog) 0 unit SC ACHS [facility]; Protocol Last Admin: 06/05/18 12:30 Dose: Not Given Insulin Aspart (Novolog Mix 70/30 (70/30 Units/Ml)) 6 units SC AC [facility] Last Admin: 06/05/18 12:55 Dose: 6 units Insulin Glargine (Lantus) 20 unit SC HS [facility] Last Admin: 06/04/18 21:58 Dose: 20 units Isosorbide Mononitrate (Imdur Er) 30 mg PO DAILY [facility] Last Admin: 06/05/18 09:24 Dose: 30 mg Multivitamins (Hexavitamin) 1 tab PO DAILY [facility] Last Admin: 06/05/18 09:23 Dose: 1 tab Neomycin/Polymyxin/Bacitracin (Bacitracin/Neomycin/Polymyxin Opht Oint) 0 applic OD Q3H [facility] Stop: 06/06/18 19:46 Last Admin: 06/05/18 13:49 Dose: 0.5 inch Polyethylene Glycol (Miralax) 17 gm PO DAILY PRN PRN Reason: Constipation Rosuvastatin Calcium (Crestor) 5 mg PO HS [facility] Last Admin: 06/04/18 22:01 Dose: 5 mg Saccharomyces Boulardii (Florastor) 250 mg PO BID [facility] Last Admin: 06/05/18 09:23 Dose: 250 mg Sodium Bicarbonate (Sodium Bicarbonate Tab) 1,300 mg PO BID [facility] Last Admin: 06/05/18 09:30 Dose: 1,300 mg Thiamine HCl (Vitamin B1 Tab) 100 mg PO DAILY [facility] Last Admin: 06/05/18 09:30 Dose: 100 mg - Labs Labs: 06/05/18 08:31 06/05/18 08:31 APTT 55 SECONDS (21-34) H D 05/28/18 08:32 Assessment and Plan (1) Sepsis Status: Acute (2) EL (acute kidney injury) Status: Acute (3) Diabetic ulcer of left foot Status: Acute (4) Hypertension Status: Chronic (5) Systolic heart failure, chronic Status: Chronic (6) Uncontrolled diabetes mellitus Status: Chronic (7) Non-ischemic cardiomyopathy Status: Acute (8) Conjunctivitis Status: Acute (9) Osteomyelitis Status: Acute (10) Bacteremia Status: Acute (11) Prophylactic measure Status: Acute Attending/Attestation - Attestation I have personally seen and examined this patient.: Yes I have fully participated in the care of the patient.: Yes I have reviewed all pertinent clinical information, including history, physical exam and plan: Yes Notes (Text): Patient seen, examined, and case discussed with medical office scheduler. Patient recommended for 6-8 weeks of IV abx for unknown cellulitis, bacteremia. Patient has complete prior scans to rule out osteomyelitis. Follow-up procalcitonin. Patient from the 06/02/18 until 07/14/17 (for at least 6 weeks of treatment) per id recommendation Schedule for PICC in AM for extended antibiotics.
[2018-06-05] MEDS: (Novolog) Insulin Aspart, Recombinant 100 u/ml 10 ml vial SC SCH ×4 (08:15→21:48)
[2018-06-05 08:41] LABS: BASO # 0.1 K/uL (0.0-0.2); EOS # 0.2 K/uL (0.0-0.7); EOS % 1.5 % (0.0-4.0); HEMOGLOBIN 11.6 g/dL (12.0-18.0); LYMPH # 1.3 K/uL (1.0-4.3); LYMPH % 11.9 % (20.0-40.0); MEAN CORPUSCULAR HEMOGLOBIN 30.1 pg (27.0-31.0); MEAN CORPUSCULAR HGB CONC 33.9 g/dL (33.0-37.0); MEAN PLATELET VOLUME 8.3 fL (7.2-11.7); MONO # 0.6 K/uL (0.0-0.8); MONO % 5.9 % (0.0-10.0); NEUT # 8.7 K/uL (1.8-7.0); NEUT % 79.7 % (50.0-75.0); RBC 3.85 Mil/uL (4.40-5.90); RED CELL DISTRIBUTION WIDTH 13.9 % (11.5-14.5); WHITE BLOOD COUNT 10.9 K/uL (4.8-10.8)
[2018-06-05 08:49] LABS: ALB/GLOB RATIO 0.8 (1.0-2.1); ALBUMIN 2.9 g/dL (3.5-5.0); CALCIUM 7.7 mg/dl (8.6-10.4)
[2018-06-05] MEDS: (Novolog Mix 70/30) Insulin Aspart/Insulin Aspar 100 units/ml SC SCH ×3 (09:03→17:37)
[2018-06-05] MEDS: Multiple Vitamins Tab PO SCH (09:23)
[2018-06-05] MEDS: Saccharomyces Boulardi 250 mg Cap PO SCH ×2 (09:23→17:37)
[2018-06-05] MEDS: Aritificial Tears (15ml) OU SCH ×2 (09:25→17:38)
--- NOTE | 2018-06-05 10:01 | CP.PCM.PN ---
Subjective - Date & Time of Evaluation Date of Evaluation: 06/05/18 Time of Evaluation: 10:00 - Subjective Subjective: Nephrology Consultation Note Assessment: Stable non-oliguric Acute Kidney Injury (N17.9) likely ATN due to sepsis (? 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 renal fxn stable today. anticipate gradual improvement Hypertension control with meds as ordered. Maintain hemodynamics stable. Avoid hypotension. Patient not on ACEI/ARB due to recent EL meds for CHF being optimized by cardiology Monitor Input/Output, daily weights and renal function with basic metabolic panel continue with lasix added sodium bicarb 1300 mg bid avoid correction in serum Na >6-8 meq/24 hrs on weekly Vit D Check urine analysis, spot protein/creatinine, albumin/creatinine ratio, urine for Na/OSmol, renal sonogram Check for 25-OH vitamin D, iPTH, phosphorus level. will check c3/c4/anca as well Dose meds/antibiotics for reduced GFR. Avoid fleets enema/magnesium based laxatives. Avoid nephrotoxins/NSAIDs/ iodinated contrast (unless needed emergently) Glycemic control Further work up for as per primary team Thanks for allowing me to participate in care of your patient. Will follow patient with you. Please call if any Qs. had d/w team Dr Max Chu Office: [phone] Subjective: Noted events overnight. Patients feels better Denies chest pain, palpitation, shortness of breath, leg swelling. All other negative. INA neg for IE Physical Examination: General Appearance: Comfortable, in no acute respiratory distress, co-operative . Vitals reviewed and noted as below Head; Atraumatic, normocephalic ENT: no ulcers no thrush. Tongue is midline. Oropharynx: no rash or ulcers. EYES: Pupils are equal, round and reactive to light accommodation. Eye muscles and extraocular movement intact. Sclera is anicteric. RT eye redness Neck; supple no lymphadenopathy, no thyromegaly or bruit Lungs: Normal respiratory rate/effort. Breath sounds bilateral improved at bases with crackles Heart: Normal rate. s1s2 normal. No rub or gallop. Extremities: no edema. No varicose veins. Rt foot toe amputations in past with superificial scab Neurological: Patient is alert, awake and oriented to person, place and time. No focal deficit. Strength bilateral appropriate and equal Skin: Warm and dry. Normal turgor. No rash. Palpitation: Normal elasticity for age Abdomen: Abdomen is soft. Bowel sounds +. There is no abdominal tenderness, no guarding/rigidity no organomegaly Psych: normal insight and normal affect/mood MSK: no joint tenderness or swelling. Digits and nails normal, no deformity : kidney or bladder not palpable. Labs/imaging reviewed. Past medical history, past surgical history, family history, social history, allergy reviewed and noted as below Family hx: no hx of CKD. Rest non-contributory HIV/Hep B and C neg UA 2+ blood and neg prot Objective - Vital Signs/Intake and Output Vital Signs (last 24 hours): Temp Pulse Resp BP Pulse Ox 98.3 F 71 20 141/72 96 06/05/18 07:36 06/05/18 09:22 06/05/18 07:36 06/05/18 09:30 06/05/18 07:36 Intake and Output: 06/05/18 06/05/18 06:59 18:59 Intake Total 850 Balance 850 - Medications Medications: Current Medications Artificial Tears (Artificial Tears) 1 ml OU BID [facility] Last Admin: 06/05/18 09:25 Dose: 1 drop Aspirin (Aspirin Chewable) 81 mg PO DAILY [facility] Last Admin: 06/05/18 09:23 Dose: 81 mg Calcium Acetate (Phoslo) 667 mg PO BIDCC [facility] Last Admin: 06/05/18 09:00 Dose: 667 mg Carvedilol (Coreg) 12.5 mg PO BID [facility] Last Admin: 06/05/18 09:30 Dose: 12.5 mg Dextrose (Dextrose 50% Inj) 0 ml IV STAT PRN; Protocol PRN Reason: Hypoglycemia Protocol Dextrose (Glutose 15) 0 gm PO ONCE PRN; Protocol PRN Reason: Hypoglycemia Protocol Docusate Sodium (Colace) 100 mg PO DAILY [facility] Last Admin: 06/05/18 09:22 Dose: 100 mg Ergocalciferol (Drisdol 50,000 Intl Units Cap) 1 cap PO Q7D [facility] Last Admin: 05/31/18 15:50 Dose: 1 cap Famotidine (Pepcid) 20 mg PO DAILY [facility] Last Admin: 06/05/18 09:24 Dose: 20 mg Folic Acid (Folic Acid) 1 mg PO DAILY [facility] Last Admin: 06/05/18 09:23 Dose: 1 mg Furosemide (Lasix) 40 mg IVP DAILY [facility] Last Admin: 06/05/18 09:24 Dose: 40 mg Glucagon (Glucagen Diagnostic Kit) 0 mg IM STAT PRN; Protocol PRN Reason: Hypoglycemia Protocol Heparin Sodium (Porcine) (Heparin) 5,000 units SC Q12 [facility] Last Admin: 06/05/18 09:30 Dose: 5,000 units Hydralazine HCl (Apresoline) 25 mg PO TID [facility] Last Admin: 06/05/18 09:24 Dose: 25 mg Dextrose (Dextrose 5% In Water 1000 Ml) 1,000 mls @ 0 mls/hr IV .Q0M PRN; Protocol PRN Reason: Hypoglycemia Protocol Nafcillin Sodium 2 gm/ Sodium (Chloride) 250 mls @ 250 mls/hr IVPB Q4H [facility]; Protocol Last Admin: 06/05/18 09:31 Dose: 250 mls/hr Insulin Aspart (Novolog) 0 unit SC ACHS [facility]; Protocol Last Admin: 06/05/18 08:15 Dose: Not Given Insulin Aspart (Novolog Mix 70/30 (70/30 Units/Ml)) 6 units SC AC [facility] Last Admin: 06/05/18 09:03 Dose: 6 units Insulin Glargine (Lantus) 20 unit SC HS [facility] Last Admin: 06/04/18 21:58 Dose: 20 units Isosorbide Mononitrate (Imdur Er) 30 mg PO DAILY [facility] Last Admin: 06/05/18 09:24 Dose: 30 mg Multivitamins (Hexavitamin) 1 tab PO DAILY [facility] Last Admin: 06/05/18 09:23 Dose: 1 tab Neomycin/Polymyxin/Bacitracin (Bacitracin/Neomycin/Polymyxin Opht Oint) 0 ap plic OD Q3H [facility] Stop: 06/06/18 19:46 Last Admin: 06/05/18 08:14 Dose: Not Given Ondansetron HCl (Zofran Inj) 4 mg IVP Q6H PRN PRN Reason: Nausea/Vomiting Polyethylene Glycol (Miralax) 17 gm PO DAILY PRN PRN Reason: Constipation Rosuvastatin Calcium (Crestor) 5 mg PO [facility] Last Admin: 06/04/18 22:01 Dose: 5 mg Saccharomyces Boulardii (Florastor) 250 mg PO BID [facility] Last Admin: 06/05/18 09:23 Dose: 250 mg Sodium Bicarbonate (Sodium Bicarbonate Tab) 1,300 mg PO BID [facility] Last Admin: 06/05/18 09:30 Dose: 1,300 mg Thiamine HCl (Vitamin B1 Tab) 100 mg PO DAILY [facility] Last Admin: 06/05/18 09:30 Dose: 100 mg - Labs Labs: 06/05/18 08:31 06/05/18 08:31 APTT 55 SECONDS (21-34) H D 05/28/18 08:32
--- NOTE | 2018-06-05 18:05 | CP.PCM.PN ---
Subjective - Date & Time of Evaluation Date of Evaluation: 06/05/18 Time of Evaluation: 08:00 - Subjective Subjective: bacteremia persists INA negative unknown source will cont iv rx for min 6-8 weeks after first negative cultures Objective - Vital Signs/Intake and Output Vital Signs (last 24 hours): Temp Pulse Resp BP Pulse Ox 98.5 F 77 20 146/72 96 06/05/18 16:00 06/05/18 16:00 06/05/18 16:00 06/05/18 17:36 06/05/18 16:00 Intake and Output: 06/05/18 06/05/18 06:59 18:59 Intake Total 850 1000 Balance 850 1000 - Medications Medications: Current Medications Artificial Tears (Artificial Tears) 1 ml OU BID [facility] Last Admin: 06/05/18 17:38 Dose: 1 drop Aspirin (Aspirin Chewable) 81 mg PO DAILY [facility] Last Admin: 06/05/18 09:23 Dose: 81 mg Calcium Acetate (Phoslo) 667 mg PO BIDCC [facility] Last Admin: 06/05/18 17:37 Dose: 667 mg Carvedilol (Coreg) 12.5 mg PO BID [facility] Last Admin: 06/05/18 17:36 Dose: 12.5 mg Dextrose (Dextrose 50% Inj) 0 ml IV STAT PRN; Protocol PRN Reason: Hypoglycemia Protocol Dextrose (Glutose 15) 0 gm PO ONCE PRN; Protocol PRN Reason: Hypoglycemia Protocol Docusate Sodium (Colace) 100 mg PO DAILY [facility] Last Admin: 06/05/18 09:22 Dose: 100 mg Ergocalciferol (Drisdol 50,000 Intl Units Cap) 1 cap PO Q7D [facility] Last Admin: 05/31/18 15:50 Dose: 1 cap Famotidine (Pepcid) 20 mg PO DAILY [facility] Last Admin: 06/05/18 09:24 Dose: 20 mg Folic Acid (Folic Acid) 1 mg PO DAILY [facility] Last Admin: 06/05/18 09:23 Dose: 1 mg Furosemide (Lasix) 40 mg PO DAILY [facility] Glucagon (Glucagen Diagnostic Kit) 0 mg IM STAT PRN; Protocol PRN Reason: Hypoglycemia Protocol Heparin Sodium (Porcine) (Heparin) 5,000 units SC Q12 [facility] Last Admin: 06/05/18 09:30 Dose: 5,000 units Hydralazine HCl (Apresoline) 25 mg PO TID [facility] Last Admin: 06/05/18 17:36 Dose: 25 mg Dextrose (Dextrose 5% In Water 1000 Ml) 1,000 mls @ 0 mls/hr IV .Q0M PRN; Protocol PRN Reason: Hypoglycemia Protocol Nafcillin Sodium 2 gm/ Sodium (Chloride) 250 mls @ 250 mls/hr IVPB Q4H [facility]; Protocol Last Admin: 06/05/18 17:38 Dose: 250 mls/hr Insulin Aspart (Novolog) 0 unit SC ACHS [facility]; Protocol Last Admin: 06/05/18 17:37 Dose: 1 units Insulin Aspart (Novolog Mix 70/30 (70/30 Units/Ml)) 6 units SC AC [facility] Last Admin: 06/05/18 17:37 Dose: 6 units Insulin Glargine (Lantus) 20 unit SC HS [facility] Last Admin: 06/04/18 21:58 Dose: 20 units Isosorbide Mononitrate (Imdur Er) 30 mg PO DAILY [facility] Last Admin: 06/05/18 09:24 Dose: 30 mg Multivitamins (Hexavitamin) 1 tab PO DAILY [facility] Last Admin: 06/05/18 09:23 Dose: 1 tab Neomycin/Polymyxin/Bacitracin (Bacitracin/Neomycin/Polymyxin Opht Oint) 0 applic OD Q3H [facility] Stop: 06/06/18 19:46 Last Admin: 06/05/18 17:38 Dose: 0.5 inch Polyethylene Glycol (Miralax) 17 gm PO DAILY PRN PRN Reason: Constipation Rosuvastatin Calcium (Crestor) [address] [facility] Last Admin: 06/04/18 22:01 Dose: 5 mg Saccharomyces Boulardii (Florastor) 250 mg PO BID [facility] Last Admin: 06/05/18 17:37 Dose: 250 mg Sodium Bicarbonate (Sodium Bicarbonate Tab) 1,300 mg PO BID [facility] Last Admin: 06/05/18 17:37 Dose: 1,300 mg Thiamine HCl (Vitamin B1 Tab) 100 mg PO DAILY [facility] Last Admin: 06/05/18 09:30 Dose: 100 mg - Labs Labs: 06/05/18 08:31 06/05/18 08:31 APTT 55 SECONDS (21-34) H D 05/28/18 08:32 Assessment and Plan (1) Bacteremia Status: Acute (2) Acute on chronic systolic (congestive) heart failure Status: Acute (3) CHF exacerbation Status: Acute (4) Dilated cardiomyopathy Status: Acute (5) NSTEMI (non-ST elevated myocardial infarction) Status: Acute (6) Sepsis Status: Acute
[2018-06-05] MEDS: (Lantus) Insulin Glargine, Recombinant SC SCH (21:55)
[2018-06-06] MEDS: Bacitracin/Neomycin/Polymyxin OPHT OINT OD SCH ×7 (03:15→22:15)
[2018-06-06 06:54] LABS: HEMOGLOBIN 11.2 g/dL (12.0-18.0); MEAN CELL VOLUME 89.4 fL (80.0-94.0); MEAN CORPUSCULAR HEMOGLOBIN 30.1 pg (27.0-31.0); MEAN CORPUSCULAR HGB CONC 33.7 g/dL (33.0-37.0); RBC 3.71 Mil/uL (4.40-5.90); RED CELL DISTRIBUTION WIDTH 14.3 % (11.5-14.5); WHITE BLOOD COUNT 9.4 K/uL (4.8-10.8)
[2018-06-06 06:55] LABS: BASO # 0.1 K/uL (0.0-0.2); EOS # 0.1 K/uL (0.0-0.7); EOS % 1.2 % (0.0-4.0); LYMPH # 1.4 K/uL (1.0-4.3); LYMPH % 14.9 % (20.0-40.0); MEAN PLATELET VOLUME 8.4 fL (7.2-11.7); MONO # 0.7 K/uL (0.0-0.8); MONO % 7.4 % (0.0-10.0); NEUT # 7.1 K/uL (1.8-7.0); NEUT % 75.5 % (50.0-75.0)
[2018-06-06 07:03] LABS: ALB/GLOB RATIO 0.7 (1.0-2.1); ALBUMIN 2.9 g/dL (3.5-5.0); CALCIUM 7.6 mg/dl (8.6-10.4)
--- NOTE | 2018-06-06 07:34 | CP.PCM.PN ---
<Luisa Damon - Last Filed: 06/06/18 11:07> Subjective - Date & Time of Evaluation Date of Evaluation: 06/06/18 Time of Evaluation: 07:28 - Subjective Subjective: PGY-1 Luisa Damon D.O. Medicine progress note for Dr. King's service: lang interpreter: Ever [id number] Patient was seen and examined this morning. He states he is feeling well except for his R eye. It continues to itch and tear despite 1 week of treatment. Patient is eating and sleeping well. He is walking at his baseline without pain. He is moving his bowels and urinating without difficulty. Explained to patient need for prolonged course of antibiotics once blood Cx remain negative. Objective - Vital Signs/Intake and Output Vital Signs (last 24 hours): Temp Pulse Resp BP Pulse Ox 98.3 F 70 20 139/68 98 06/06/18 01:32 06/06/18 01:32 06/06/18 01:32 06/06/18 01:32 06/06/18 01:32 Intake and Output: 06/06/18 06/06/18 06:59 18:59 Intake Total 1000 Balance 1000 - Medications Medications: Current Medications Artificial Tears (Artificial Tears) 1 ml OU BID [facility] Last Admin: 06/05/18 17:38 Dose: 1 drop Aspirin (Aspirin Chewable) 81 mg PO DAILY [facility] Last Admin: 06/05/18 09:23 Dose: 81 mg Calcium Acetate (Phoslo) 667 mg PO BIDCC [facility] Last Admin: 06/05/18 17:37 Dose: 667 mg Carvedilol (Coreg) 12.5 mg PO BID [facility] Last Admin: 06/05/18 17:36 Dose: 12.5 mg Dextrose (Dextrose 50% Inj) 0 ml IV STAT PRN; Protocol PRN Reason: Hypoglycemia Protocol Dextrose (Glutose 15) 0 gm PO ONCE PRN; Protocol PRN Reason: Hypoglycemia Protocol Docusate Sodium (Colace) 100 mg PO DAILY [facility] Last Admin: 06/05/18 09:22 Dose: 100 mg Ergocalciferol (Drisdol 50,000 Intl Units Cap) 1 cap PO Q7D [facility] Last Admin: 05/31/18 15:50 Dose: 1 cap Famotidine (Pepcid) 20 mg PO DAILY [facility] Last Admin: 06/05/18 09:24 Dose: 20 mg Folic Acid (Folic Acid) 1 mg PO DAILY [facility] Last Admin: 06/05/18 09:23 Dose: 1 mg Furosemide (Lasix) 40 mg PO DAILY [facility] Glucagon (Glucagen Diagnostic Kit) 0 mg IM STAT PRN; Protocol PRN Reason: Hypoglycemia Protocol Heparin Sodium (Porcine) (Heparin) 5,000 units SC Q12 [facility] Last Admin: 06/05/18 21:55 Dose: 5,000 units Hydralazine HCl (Apresoline) 25 mg PO TID [facility] Last Admin: 06/05/18 17:36 Dose: 25 mg Dextrose (Dextrose 5% In Water 1000 Ml) 1,000 mls @ 0 mls/hr IV .Q0M PRN; Protocol PRN Reason: Hypoglycemia Protocol Nafcillin Sodium 2 gm/ Sodium (Chloride) 250 mls @ 250 mls/hr IVPB Q4H [facility]; Protocol Last Admin: 06/06/18 06:22 Dose: 250 mls/hr Insulin Aspart (Novolog) 0 unit SC ACHS [facility]; Protocol Last Admin: 06/05/18 21:48 Dose: Not Given Insulin Aspart (Novolog Mix 70/30 (70/30 Units/Ml)) 6 units SC AC [facility] Last Admin: 06/05/18 17:37 Dose: 6 units Insulin Glargine (Lantus) 20 unit SC HS [facility] Last Admin: 06/05/18 21:55 Dose: 20 units Isosorbide Mononitrate (Imdur Er) 30 mg PO DAILY [facility] Last Admin: 06/05/18 09:24 Dose: 30 mg Multivitamins (Hexavitamin) 1 tab PO DAILY [facility] Last Admin: 06/05/18 09:23 Dose: 1 tab Neomycin/Polymyxin/Bacitracin (Bacitracin/Neomycin/Polymyxin Opht Oint) 0 applic OD Q3H [facility] Stop: 06/06/18 19:46 Last Admin: 06/06/18 06:36 Dose: Not Given Polyethylene Glycol (Miralax) 17 gm PO DAILY PRN PRN Reason: Constipation Rosuvastatin Calcium (Crestor) 5 mg PO HS [facility] Last Admin: 06/04/18 22:01 Dose: 5 mg Saccharomyces Boulardii (Florastor) 250 mg PO BID [facility] Last Admin: 06/05/18 17:37 Dose: 250 mg Sodium Bicarbonate (Sodium Bicarbonate Tab) 1,300 mg PO BID [facility] Last Admin: 06/05/18 17:37 Dose: 1,300 mg Thiamine HCl (Vitamin B1 Tab) 100 mg PO DAILY [facility] Last Admin: 06/05/18 09:30 Dose: 100 mg - Labs Labs: 06/06/18 06:42 06/06/18 06:42 APTT 55 SECONDS (21-34) H D 05/28/18 08:32 - Constitutional Appears: No Acute Distress - Head Exam Head Exam: ATRAUMATIC, NORMAL INSPECTION, NORMOCEPHALIC - Eye Exam Eye Exam: Conjunctival injection (R eye, tearing), EOMI, PERRL - ENT Exam ENT Exam: Mucous Membranes Moist - Neck Exam Neck Exam: Normal Inspection Assessment and Plan - Assessment and Plan (Free Text) Assessment: Patient is a 48 yo male with a history of uncontrolled T2DM and CHF s/p AICD who presented with generalized weakness and falls. Required ICU admission for 1 day due to hypotension- no pressors. Now much clinically improved and downgraded to telemetry unit. Patient's initial blood Cx grew micrococcus species. Subsequent 2 sets grew Staph aureus. INA did not demonstrate vegetations. Negative Certec scan. Bone scan shows possible R foot cellulitis. Repeat Blood Cx continue to grow Staph aureus. R eye conjunctivitis persists. Will f/u with ophtho for recs. Plan: Sepsis with Staph aureus bacteremia- suspect source is cellulits due to R foot amputation site, r/o endocarditis, osteomyelitis - Most recent fever 05/27 100.7 - Leukocytosis and bandemia resolved - Procal 27.53->8.3->0.24 - Lactate 1.8 - ESR 72 - CXR: no active disease - TTE: EF 26%, no vegetations - INA: moderately reduced EF, no vegetations or thrombi - Blood Cx (05/27): Micrococcus species x2 - Repeat Blood Cx (05/28, 05/30, 06/03): Staph aureus x5 - Repeat Blood Cx 06/02 no growth >3 days - Repeat Blood Cx drawn 06/06 - Urine, stool Cx no growth - Certec scan negative - R foot XR: no evidence of osteomyelitis - LE arterial and venous studies: no significant abnormalities per vasc surgery - 3 view bone scans of b/l LEs: no evidence of osteomyelitis, possible R foot cellulitis - F/u punch biopsies form R foot - Nafcillin 2 g IV Q4H- started 06/02 - Florastor 250 mg PO BID - ICU consulted - Surgery consulted (James)- no intervention at this time - Podiatry consulted (Ryder)- no intervention at this time - ID consulted (Charly)- no PICC until Cx negative, rec 6-8 wks IV abx - PT/OT- rec home Renal insufficiency, improving- suspect ATN due to sepsis and/or CHF in addition to CKD from DM and HTN - BUN 37->91->49 - Cr 1.6->5.1->2.9 - Avoid ACEI/ARB and other nephrotoxic drugs - Renally dose meds - Maintain normotension - No IVF due to CHF - Nephrology consulted (Junior/Vlad)- no need for dialysis at this time but will continue to follow, continue Lasix R eye conjunctivitis, worsening - Artificial tears BID - Bacitracin/Neomycin/polymyxin OD Q3H while awake x7 days- 06/06 last day - Ophthalmology consulted (Doron)- called today 06/06 for reconsult, f/u recs Systolic heart failure (HFrEF)- s/p AICD - BNP 11,300 - Echo: EF 26% - Strict I's & O's - Daily weights - Fluid restriction <1200 mL/day - ASA 81 mg PO daily - Coreg 12.5 mg PO BID - Lasix 40 mg PO daily - Hydralazine 25 mg PO TID - Isosorbide nitrate 30 mg PO daily - Cardiology consulted (Mary) Type 2 diabetes mellitus - A1c 7.8 - Hypoglycemia protocol - Accuchecks ACHS with ISS - Lantus 20 units SC QHS - Aspart 6 u SC AC Transaminitis, stable - AST 67, ALT 74 - Avoid hepatotoxic drugs - Hold statin Secondary hyperparathyroidism- 2/2 kidney disease - Elevated PTH (153) - Low Ca (7) - Elevated Ph (5.2) - Low Vit D (<12.5) - Phoslo 667 mg PO BID - Ergocalciferol 50,000 QWK Dyslipidemia - Choles 112, LDL<30, HDL 12, TG 320-765 (suspect 2nd value is not fasting) - Crestor 5 mg PO QHS- hold due to transaminitis Elevated D-dimer (1468)- suspect 2/2 kidney disease - V/Q scan: low probability of PE - Cannot get CTA due to kidney function Elevated troponin, improved- h/o nonischemic cardiomyopathy (cath 10/19), suspect 2/2 kidney disease, doubt NSTEMI - Trop: 0.17->0.233->0.222 - EKG: no ST elevations, ventricular-paced rhythm - Cardiology consulted (Hupart)- no heparin or Plavix Hyponatremia, resolved - Avoid correction >6-8 mEq/24 hrs - TSH low (0.31), T4 wnl (1.5) - Serum osm 316 - Urine osm 281 - Urine Na 27, K 6.4 - AM cortisol elevated 29.7 - Sodium bicarb 1300 mg PO TID Thrombocytopenia, resolved- suspect 2/2 kidney disease - Monitor CBC - Hepatitis negative - HIV negative Constipation, resolved - Miralax 17 g PO daily PRN - Colace 100 mg PO daily - FOBT negative Ppx: VTE: heparin 5000 u SC Q12H GI: Pepcid 20 mg PO daily Code status: full code Case was discussed with attending, Dr. King. <Rosetta King V - Last Filed: 06/06/18 18:29> Objective - Vital Signs/Intake and Output Vital Signs (last 24 hours): Temp Pulse Resp BP Pulse Ox 97.9 F 75 20 132/74 96 06/06/18 15:00 06/06/18 15:00 06/06/18 15:00 06/06/18 18:16 06/06/18 15:00 Intake and Output: 06/06/18 06/06/18 06:59 18:59 Intake Total 1000 Balance 1000 - Medications Medications: Current Medications Artificial Tears (Artificial Tears) 1 ml OU BID [facility] Last Admin: 06/06/18 18:17 Dose: 1 drop Aspirin (Aspirin Chewable) 81 mg PO DAILY [facility] Last Admin: 06/06/18 10:06 Dose: 81 mg [facility] Admin: 06/06/18 18:00 Dose: 667 mg Carvedilol (Coreg) 12.5 mg PO BID [facility] Last Admin: 06/06/18 18:16 Dose: 12.5 mg Dextrose (Dextrose 50% Inj) 0 ml IV STAT PRN; Protocol PRN Reason: Hypoglycemia Protocol Dextrose (Glutose 15) 0 gm PO ONCE PRN; Protocol PRN Reason: Hypoglycemia Protocol Docusate Sodium (Colace) 100 mg PO DAILY [facility] Last Admin: 06/06/18 10:03 Dose: 100 mg Ergocalciferol (Drisdol 50,000 Intl Units Cap) 1 cap PO Q7D [facility] Last Admin: 05/31/18 15:50 Dose: 1 cap Famotidine (Pepcid) 20 mg PO DAILY [facility] Last Admin: 06/06/18 10:06 Dose: 20 mg Folic Acid (Folic Acid) 1 mg PO DAILY [facility] Last Admin: 06/06/18 10:06 Dose: 1 mg Furosemide (Lasix) 40 mg PO DAILY [facility] Last Admin: 06/06/18 10:08 Dose: 40 mg Glucagon (Glucagen Diagnostic Kit) 0 mg IM STAT PRN; Protocol PRN Reason: Hypoglycemia Protocol Heparin Sodium (Porcine) (Heparin) 5,000 units SC Q12 [facility] Last Admin: 06/06/18 10:08 Dose: 5,000 units Hydralazine HCl (Apresoline) 25 mg PO TID [facility] Last Admin: 06/06/18 13:44 Dose: 25 mg Dextrose (Dextrose 5% In Water 1000 Ml) 1,000 mls @ 0 mls/hr IV .Q0M PRN; Protocol PRN Reason: Hypoglycemia Protocol Nafcillin Sodium 2 gm/ Sodium (Chloride) 250 mls @ 250 mls/hr IVPB Q4H [facility]; Protocol Last Admin: 06/06/18 13:45 Dose: 250 mls/hr Insulin Aspart (Novolog) 0 unit SC ACHS [facility]; Protocol Last Admin: 06/06/18 12:30 Dose: 2 units Insulin Aspart (Novolog Mix 70/30 (70/30 Units/Ml)) 6 units SC AC [facility] Last Admin: 06/06/18 12:30 Dose: 6 units Insulin Glargine (Lantus) 20 unit SC HS [facility] Last Admin: 06/05/18 21:55 Dose: 20 units Isosorbide Mononitrate (Imdur Er) 30 mg PO DAILY [facility] Last Admin: 06/06/18 10:06 Dose: 30 mg Multivitamins (Hexavitamin) 1 tab PO DAILY [facility] Last Admin: 06/06/18 10:04 Dose: 1 tab Neomycin/Polymyxin/Bacitracin (Bacitracin/Neomycin/Polymyxin Opht Oint) 0 applic OD Q3H [facility] Stop: 06/06/18 19:46 Last Admin: 06/06/18 17:40 Dose: 0.5 inch Polyethylene Glycol (Miralax) 17 gm PO DAILY PRN PRN Reason: Constipation Rosuvastatin Calcium (Crestor) 5 mg PO HS [facility] Last Admin: 06/04/18 22:01 Dose: 5 mg Saccharomyces Boulardii (Florastor) 250 mg PO BID [facility] Last Admin: 06/06/18 18:16 Dose: 250 mg Sodium Bicarbonate (Sodium Bicarbonate Tab) 1,300 mg PO BID [facility] Last Admin: 06/06/18 18:15 Dose: 1,300 mg Thiamine HCl (Vitamin B1 Tab) 100 mg PO DAILY [facility] Last Admin: 06/06/18 10:03 Dose: 100 mg Tobramycin/Dexamethasone (Tobradex Opht Susp) 0 ml OD Q3 [facility] - Labs Labs: 06/06/18 06:42 06/06/18 06:42 APTT 55 SECONDS (21-34) H D 05/28/18 08:32 Assessment and Plan (1) Sepsis Status: Acute (2) EL (acute kidney injury) Status: Acute (3) Diabetic ulcer of left foot Status: Acute (4) Hypertension Status: Chronic (5) Systolic heart failure, chronic Status: Chronic (6) Uncontrolled diabetes mellitus Status: Chronic (7) Non-ischemic cardiomyopathy Status: Acute (8) Conjunctivitis Status: Acute (9) Osteomyelitis Status: Acute (10) Bacteremia Status: Acute (11) Prophylactic measure Status: Acute Attending/Attestation - Attestation I have personally seen and examined this patient.: Yes I have fully participated in the care of the patient.: Yes I have reviewed all pertinent clinical information, including history, physical exam and plan: Yes Notes (Text): Patient seen, examined, case discussed with medical office asst. Patient seen this morning. Patient is in good spirits. Patient noted tearing over the right eye. Patient does not report any change in visual acuity. We will need to follow-up with ophthalmology to see if there is any change in medication a she has been on TobraDex drops today's the seventh day. We have canceled PICC line order in light of positive culture from June 03. Patient have repeat blood cultures drawn today on June 06. If they are negative then we will consider PICC line placement later on. Patient is suggested need at least 6-8 weeks of IV antibiotics to cover for bacteremia, endocarditis, osteomyelitis. We'll continue to monitor patient.
[2018-06-06] MEDS: (Novolog) Insulin Aspart, Recombinant 100 u/ml 10 ml vial SC SCH ×4 (07:57→22:17)
[2018-06-06] MEDS: (Novolog Mix 70/30) Insulin Aspart/Insulin Aspar 100 units/ml SC SCH ×3 (08:30→22:18)
[2018-06-06] MEDS: Multiple Vitamins Tab PO SCH (10:04)
[2018-06-06] MEDS: Saccharomyces Boulardi 250 mg Cap PO SCH ×2 (10:06→18:16)
[2018-06-06] MEDS: Aritificial Tears (15ml) OU SCH ×2 (10:12→18:17)
[2018-06-06 15:01] LABS: ANCA SCREEN NEGATIVE (NEGATIVE)
--- NOTE | 2018-06-06 15:13 | CP.PCM.PN ---
Subjective - Date & Time of Evaluation Date of Evaluation: 06/06/18 Time of Evaluation: 15:12 - Subjective Subjective: Nephrology Consultation Note Assessment: Stable non-oliguric Acute Kidney Injury (N17.9) likely ATN due to sepsis (? 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 anticipate gradual improvement Hypertension control with meds as ordered. Maintain hemodynamics stable. Avoid hypotension. Patient not on ACEI/ARB due to recent EL meds for CHF being optimized by cardiology Monitor Input/Output, daily weights and renal function with basic metabolic panel continue with lasix added sodium bicarb 1300 mg bid avoid correction in serum Na >6-8 meq/24 hrs on weekly Vit D Check urine analysis, spot protein/creatinine, albumin/creatinine ratio, urine for Na/OSmol, renal sonogram Check for 25-OH vitamin D, iPTH, phosphorus level. will check c3/c4/anca as well Dose meds/antibiotics for reduced GFR. Avoid fleets enema/magnesium based laxatives. Avoid nephrotoxins/NSAIDs/ iodinated contrast (unless needed emergen tly) Glycemic control Further work up for as per primary team Thanks for allowing me to participate in care of your patient. Will follow patient with you. Please call if any Qs. had d/w team Dr Max Chu Office: [phone] Subjective: Noted events overnight. Patients feels better Denies chest pain, palpitation, shortness of breath, leg swelling. All other negative. INA neg for IE Physical Examination: General Appearance: Comfortable, in no acute respiratory distress, co-operative . Vitals reviewed and noted as below Head; Atraumatic, normocephalic ENT: no ulcers no thrush. Tongue is midline. Oropharynx: no rash or ulcers. EYES: Pupils are equal, round and reactive to light accommodation. Eye muscles and extraocular movement intact. Sclera is anicteric. RT eye redness Neck; supple no lymphadenopathy, no thyromegaly or bruit Lungs: Normal respiratory rate/effort. Breath sounds bilateral improved at bases with crackles Heart: Normal rate. s1s2 normal. No rub or gallop. Extremities: no edema. No varicose veins. Rt foot toe amputations in past with superificial scab Neurological: Patient is alert, awake and oriented to person, place and time. No focal deficit. Strength bilateral appropriate and equal Skin: Warm and dry. Normal turgor. No rash. Palpitation: Normal elasticity for age Abdomen: Abdomen is soft. Bowel sounds +. There is no abdominal tenderness, no guarding/rigidity no organomegaly Psych: normal insight and normal affect/mood MSK: no joint tenderness or swelling. Digits and nails normal, no deformity : kidney or bladder not palpable. Labs/imaging reviewed. Past medical history, past surgical history, family history, social history, allergy reviewed and noted as below Family hx: no hx of CKD. Rest non-contributory HIV/Hep B and C neg UA 2+ blood and neg prot Objective - Vital Signs/Intake and Output Vital Signs (last 24 hours): Temp Pulse Resp BP Pulse Ox 98.6 F 93 H 20 147/73 95 06/06/18 08:00 06/06/18 13:39 06/06/18 08:00 06/06/18 13:39 06/06/18 08:00 Intake and Output: 06/06/18 06/06/18 06:59 18:59 Intake Total 1000 Balance 1000 - Medications Medications: Current Medications Artificial Tears (Artificial Tears) 1 ml OU BID [facility] Last Admin: 06/06/18 10:12 Dose: 1 drop Aspirin (Aspirin Chewable) 81 mg PO DAILY [facility] Last Admin: 06/06/18 10:06 Dose: 81 mg Calcium Acetate (Phoslo) 667 mg PO BIDCC [facility] Last Admin: 06/06/18 09:00 Dose: 667 mg Carvedilol (Coreg) 12.5 mg PO BID [facility] Last Admin: 06/06/18 10:07 Dose: 12.5 mg Dextrose (Dextrose 50% Inj) 0 ml IV STAT PRN; Protocol PRN Reason: Hypoglycemia Protocol Dextrose (Glutose 15) 0 gm PO ONCE PRN; Protocol PRN Reason: Hypoglycemia Protocol Docusate Sodium (Colace) 100 mg PO DAILY [facility] Last Admin: 06/06/18 10:03 Dose: 100 mg Ergocalciferol (Drisdol 50,000 Intl Units Cap) 1 cap PO Q7D [facility] Last Admin: 05/31/18 15:50 Dose: 1 cap Famotidine (Pepcid) 20 mg PO DAILY [facility] Last Admin: 06/06/18 10:06 Dose: 20 mg Folic Acid (Folic Acid) 1 mg PO DAILY [facility] Last Admin: 06/06/18 10:06 Dose: 1 mg Furosemide (Lasix) 40 mg PO DAILY [facility] Last Admin: 06/06/18 10:08 Dose: 40 mg Glucagon (Glucagen Diagnostic Kit) 0 mg IM STAT PRN; Protocol PRN Reason: Hypoglycemia Protocol Heparin Sodium (Porcine) (Heparin) 5,000 units SC Q12 [facility] Last Admin: 06/06/18 10:08 Dose: 5,000 units Hydralazine HCl (Apresoline) 25 mg PO TID [facility] Last Admin: 06/06/18 13:44 Dose: 25 mg Dextrose (Dextrose 5% In Water 1000 Ml) 1,000 mls @ 0 mls/hr IV .Q0M PRN; Protocol PRN Reason: Hypoglycemia Protocol Nafcillin Sodium 2 gm/ Sodium (Chloride) 250 mls @ 250 mls/hr IVPB Q4H [facility]; Protocol Last Admin: 06/06/18 13:45 Dose: 250 mls/hr Insulin Aspart (Novolog) 0 unit SC ACHS [facility]; Protocol Last Admin: 06/06/18 12:30 Dose: 2 units Insulin Aspart (Novolog Mix 70/30 (70/30 Units/Ml)) 6 units SC AC [facility] Last Admin: 06/06/18 12:30 Dose: 6 units Insulin Glargine (Lantus) 20 unit SC HS [facility] Last Admin: 06/05/18 21:55 Dose: 20 units Isosorbide Mononitrate (Imdur Er) 30 mg PO DAILY [facility] Last Admin: 06/06/18 10:06 Dose: 30 mg Multivitamins (Hexavitamin) 1 tab PO DAILY [facility] Last Admin: 06/06/18 10:04 Dose: 1 tab Neomycin/Polymyxin/Bacitracin (Bacitracin/Neomycin/Polymyxin Opht Oint) 0 applic OD Q3H [facility] Stop: 06/06/18 19:46 Last Admin: 06/06/18 13:04 Dose: 0.5 inch Polyethylene Glycol (Miralax) 17 gm PO DAILY PRN PRN Reason: Constipation Rosuvastatin Calcium (Crestor) 5 mg PO HS [facility] Last Admin: 06/04/18 22:01 Dose: 5 mg Saccharomyces Boulardii (Florastor) 250 mg PO BID [facility] Last Admin: 06/06/18 10:06 Dose: 250 mg Sodium Bicarbonate (Sodium Bicarbonate Tab) 1,300 mg PO BID [facility] Last Admin: 06/06/18 10:06 Dose: 1,300 mg Thiamine HCl (Vitamin B1 Tab) 100 mg PO DAILY [facility] Last Admin: 06/06/18 10:03 Dose: 100 mg - Labs Labs: 06/06/18 06:42 06/06/18 06:42 APTT 55 SECONDS (21-34) H D 05/28/18 08:32
[2018-06-06] MEDS: (Lantus) Insulin Glargine, Recombinant SC SCH (21:40)
[2018-06-06] MEDS: Tobramycin/Dexamethasone (Tobradex) Opth Sol (2.5 ml) OD SCH ×2 (22:19→22:20)
[2018-06-07] MEDS: Tobramycin/Dexamethasone (Tobradex) Opth Sol (2.5 ml) OD SCH ×8 (01:00→22:12)
--- NOTE | 2018-06-07 07:02 | CP.PCM.PN ---
<Codie Mckinley L - Last Filed: 06/07/18 13:38> Subjective - Date & Time of Evaluation Date of Evaluation: 06/07/18 Time of Evaluation: 07:02 - Subjective Subjective: Resident Progress Note for Hospitalist Service Patient examined at bedside. No acute events overnight. Patient states that he is feeling better today, and is eating and drinking well. Still admits to irritation in his right eye, however offers no other complaints at this time. Objective - Vital Signs/Intake and Output Vital Signs (last 24 hours): Temp Pulse Resp BP Pulse Ox 98.1 F 75 20 159/78 H 95 06/07/18 00:00 06/07/18 00:00 06/07/18 00:00 06/07/18 00:00 06/07/18 00:00 - Medications Medications: Current Medications Artificial Tears (Artificial Tears) 1 ml OU BID [facility] Last Admin: 06/06/18 18:17 Dose: 1 drop Aspirin (Aspirin Chewable) 81 mg PO DAILY [facility] Last Admin: 06/06/18 10:06 Dose: 81 mg Calcium Acetate (Phoslo) 667 mg PO BIDCC [facility] Last Admin: 06/06/18 18:00 Dose: 667 mg Carvedilol (Coreg) 12.5 mg PO BID [facility] Last Admin: 06/06/18 18:16 Dose: 12.5 mg Dextrose (Dextrose 50% Inj) 0 ml IV STAT PRN; Protocol PRN Reason: Hypoglycemia Protocol Dextrose (Glutose 15) 0 gm PO ONCE PRN; Protocol PRN Reason: Hypoglycemia Protocol Docusate Sodium (Colace) 100 mg PO DAILY [facility] Last Admin: 06/06/18 10:03 Dose: 100 mg Ergocalciferol (Drisdol 50,000 Intl Units Cap) 1 cap PO Q7D [facility] Last Admin: 05/31/18 15:50 Dose: 1 cap Famotidine (Pepcid) 20 mg PO DAILY [facility] Last Admin: 06/06/18 10:06 Dose: 20 mg Folic Acid (Folic Acid) 1 mg PO DAILY [facility] Last Admin: 06/06/18 10:06 Dose: 1 mg Furosemide (Lasix) 40 mg PO DAILY [facility] Last Admin: 06/06/18 10:08 Dose: 40 mg Glucagon (Glucagen Diagnostic Kit) 0 mg IM STAT PRN; Protocol PRN Reason: Hypoglycemia Protocol Heparin Sodium (Porcine) (Heparin) 5,000 units SC Q12 [facility] Last Admin: 06/06/18 21:40 Dose: 5,000 units Hydralazine HCl (Apresoline) 25 mg PO TID [facility] Last Admin: 06/06/18 18:48 Dose: 25 mg Dextrose (Dextrose 5% In Water 1000 Ml) 1,000 mls @ 0 mls/hr IV .Q0M PRN; Protocol PRN Reason: Hypoglycemia Protocol Nafcillin Sodium 2 gm/ Sodium (Chloride) 250 mls @ 250 mls/hr IVPB Q4H [facility]; Protocol Last Admin: 06/07/18 06:15 Dose: 250 mls/hr Insulin Aspart (Novolog) 0 unit SC ACHS [facility]; Protocol Last Admin: 06/06/18 22:17 Dose: Not Given Insulin Aspart (Novolog Mix 70/30 (70/30 Units/Ml)) 6 units SC AC [facility] Last Admin: 06/06/18 22:18 Dose: Not Given Insulin Glargine (Lantus) 20 unit SC HS [facility] Last Admin: 06/06/18 21:40 Dose: 20 units Isosorbide Mononitrate (Imdur Er) 30 mg PO DAILY [facility] Last Admin: 06/06/18 10:06 Dose: 30 mg Multivitamins (Hexavitamin) 1 tab PO DAILY [facility] Last Admin: 06/06/18 10:04 Dose: 1 tab Polyethylene Glycol (Miralax) 17 gm PO DAILY PRN PRN Reason: Constipation Rosuvastatin Calcium (Crestor) 5 mg PO HS [facility] Last Admin: 06/04/18 22:01 Dose: 5 mg Saccharomyces Boulardii (Florastor) 250 mg PO BID [facility] Last Admin: 06/06/18 18:16 Dose: 250 mg Sodium Bicarbonate (Sodium Bicarbonate Tab) 1,300 mg PO BID [facility] Last Admin: 06/06/18 18:15 Dose: 1,300 mg Thiamine HCl (Vitamin B1 Tab) 100 mg PO DAILY [facility] Last Admin: 06/06/18 10:03 Dose: 100 mg Tobramycin/Dexamethasone (Tobradex Opht Susp) 0 ml OD Q3 [facility] Last Admin: 06/07/18 06:14 Dose: 1 applic - Labs Labs: 06/06/18 06:42 06/06/18 06:42 APTT 55 SECONDS (21-34) H D 05/28/18 08:32 - Additional Findings Additional findings: - Constitutional Appears: No Acute Distress - Head Exam Head Exam: NORMOCEPHALIC, ATRAUMATIC - Eye Exam Eye Exam: Conjunctival injection (R eye- worsening, tearing), EOMI, PERRL - ENT Exam ENT Exam: Mucous Membranes Moist - Neck Exam Neck Exam: Normal Inspection - Respiratory Exam Respiratory Exam: Clear to Ausculation Bilateral, NORMAL BREATHING PATTERN - Cardiovascular Exam Cardiovascular Exam: REGULAR RHYTHM, +S1, +S2 - GI/Abdominal Exam GI & Abdominal Exam: Soft. absent: Tenderness - Extremities Exam Additional comments: R foot with dressings s/p punch biopsies scabs on b/l shins, largest with some dry ulceration on L anterior tibia- no bleeding or discharge/drainage - Neurological Exam Neurological Exam: Alert, Awake, CN II-XII Intact, Normal Gait, Oriented x3 - Psychiatric Exam Psychiatric exam: Normal Affect, Normal Mood - Skin Skin Exam: Dry, Normal Color, Warm Assessment and Plan - Assessment and Plan (Free Text) Assessment: Patient is a 48 yo male with a history of uncontrolled T2DM and CHF s/p AICD who presented with generalized weakness and falls. Required ICU admission for 1 day due to hypotension- no pressors. Now much clinically improved and downgraded to telemetry unit. Patient's initial blood Cx grew micrococcus species. Subsequent 2 sets grew Staph aureus. INA did not demonstrate vegetations. Negative Certec scan. Bone scan shows possible R foot cellulitis. Repeat Blood Cx continue to grow Staph aureus. R eye conjunctivitis persists. Plan: Sepsis with Staph aureus bacteremia- suspect source is cellulits due to R foot amputation site, r/o endocarditis, osteomyelitis - Most recent fever 05/27 100.7 - Leukocytosis and bandemia resolved - Lactate 1.8 - Procal 27.53->8.3- repeat on 06/06 - ESR 72 - CXR: no active disease - TTE: EF 26%, no vegetations - INA: moderately reduced EF, no vegetations or thrombi - Blood Cx: Micrococcus species x2 - Repeat Blood Cx: Staph aureus x4 - Repeat Blood Cx 06/02 no growth >48 hrs - Repeat Blood Cx 06/03: GPC - Urine, stool Cx no growth - R foot XR: no evidence of osteomyelitis - Certec scan negative - LE arterial and venous studies: no significant abnormalities per vasc surgery - 3 view bone scans of b/l LEs: no evidence of osteomyelitis, possible R foot cellulitis - F/u punch biopsies form R foot - Nafcillin 2 g IV Q4H- started 06/02 - Florastor 250 mg PO BID - ICU consulted - Surgery consulted (James)- no intervention - ID consulted (Charly)- f/u recs for abx duration and PICC - Podiatry consulted (Ryder)- no intervention at this time - PT/OT- rec home Renal insufficiency, improving- suspect ATN due to sepsis and/or CHF in addition to CKD from DM and HTN - BUN 37->91->53 - Cr 1.6->5.1->3.1 - Avoid ACEI/ARB and other nephrotoxic drugs - Renally dose meds - Maintain normotension - No IVF due to CHF - Nephrology consulted (Junior/Vlad)- no need for dialysis yet but will continue to follow, continue Lasix R eye conjunctivitis, worsening - Artificial tears BID - Bacitracin/Neomycin/polymyxin OD Q3H while awake x7 days- 06/06 last day - Ophthalmology consulted. Per Dr. Sal administer Tobradex 1 drop Q3H when pt is awake Systolic heart failure (HFrEF)- s/p AICD - BNP 11,300 - Echo: EF 26% - Strict I's & O's - Daily weights - Fluid restriction <1200 mL/day - b/l lower lung field rales- resolved - CXR 05/29: no active disease - ASA 81 mg PO daily - Coreg 12.5 mg PO BID - Lasix 40 mg PO daily - Hydralazine 25 mg PO TID - Isosorbide nitrate 30 mg PO daily - Cardiology consulted (Hupart) Type 2 diabetes mellitus - A1c 7.8 - Hypoglycemia protocol - Accuchecks ACHS with ISS - Lantus 20 units SC QHS - Aspart 6 u AC Transaminitis, worsening - AST 82, ALT 78 - Avoid hepatotoxic drugs - Hold statin Secondary hyperparathyroidism- 2/2 kidney disease - Elevated PTH (153) - Low Ca (7) - Elevated Ph (5.2) - Low Vit D (<12.5) - Phoslo 667 mg PO BID - Ergocalciferol 50,000 QWK Dyslipidemia - Choles 112, LDL<30, HDL 12, TG 320-765 (suspect 2nd value is not fasting) - Crestor 5 mg PO QHS- hold due to transaminitis Elevated troponin, improved- h/o nonischemic cardiomyopathy (cath 10/19), suspect 2/2 kidney disease, doubt NSTEMI - Trop: 0.17->0.233->0.222 - EKG: no ST elevations, ventricular-paced rhythm - Cardiology consulted (Hupart)- no heparin or Plavix Elevated D-dimer (1468)- suspect 2/2 kidney disease - V/Q scan: low probability of PE - Cannot get CTA due to kidney function Hyponatremia, resolved - Avoid correction >6-8 mEq/24 hrs - TSH low (0.31), T4 wnl (1.5) - Serum osm 316 - Urine osm 281 - Urine Na 27, K 6.4 - AM cortisol elevated 29.7 - Sodium bicarb 1300 mg PO TID Thrombocytopenia, resolved- suspect 2/2 kidney disease - Monitor CBC - Hepatitis negative - HIV negative Constipation, resolved - Miralax 17 g PO daily PRN - Colace 100 mg PO daily - FOBT negative Ppx: VTE: heparin 5000 u SC Q12H GI: Pepcid 20 mg PO daily Code status: full code Case was discussed with attending, Dr. King. <Rosetta King V - Last Filed: 06/08/18 09:28> Objective - Vital Signs/Intake and Output Vital Signs (last 24 hours): Temp Pulse Resp BP Pulse Ox 98.0 F 68 20 156/80 H 96 06/08/18 07:00 06/08/18 07:00 06/08/18 07:00 06/08/18 07:00 06/08/18 07:00 Intake and Output: 06/08/18 06/08/18 06:59 18:59 Intake Total 800 740 Balance 800 740 - Medications Medications: Current Medications Artificial Tears (Artificial Tears) 1 ml OU BID [facility] Last Admin: 06/07/18 17:39 Dose: 1 drop Aspirin (Aspirin Chewable) 81 mg PO DAILY [facility] Last Admin: 06/07/18 09:08 Dose: 81 mg Calcium Acetate (Phoslo) 667 mg PO BIDCC [facility] Last Admin: 06/08/18 08:43 Dose: 667 mg Carvedilol (Coreg) 25 mg PO BID [facility] Last Admin: 06/07/18 17:50 Dose: 25 mg Dextrose (Dextrose 50% Inj) 0 ml IV STAT PRN; Protocol PRN Reason: Hypoglycemia Protocol Dextrose (Glutose 15) 0 gm PO ONCE PRN; Protocol PRN Reason: Hypoglycemia Protocol Docusate Sodium (Colace) 100 mg PO DAILY [facility] Last Admin: 06/07/18 09:08 Dose: 100 mg Ergocalciferol (Drisdol 50,000 Intl Units Cap) 1 cap PO Q7D [facility] Last Admin: 06/07/18 15:18 Dose: 1 cap Famotidine (Pepcid) 20 mg PO DAILY [facility] Last Admin: 06/07/18 09:10 Dose: 20 mg Folic Acid (Folic Acid) 1 mg PO DAILY [facility] Last Admin: 06/07/18 09:07 Dose: 1 mg Furosemide (Lasix) 40 mg PO DAILY [facility] Last Admin: 06/07/18 09:09 Dose: 40 mg Glucagon (Glucagen Diagnostic Kit) 0 mg IM STAT PRN; Protocol PRN Reason: Hypoglycemia Protocol Heparin Sodium (Porcine) (Heparin) 5,000 units SC Q12 [facility] Last Admin: 06/07/18 22:14 Dose: 5,000 units Hydralazine HCl (Apresoline) 50 mg PO TID [facility] Last Admin: 06/07/18 17:28 Dose: 50 mg Dextrose (Dextrose 5% In Water 1000 Ml) 1,000 mls @ 0 mls/hr IV .Q0M PRN; Protocol PRN Reason: Hypoglycemia Protocol Nafcillin Sodium 2 gm/ Sodium (Chloride) 250 mls @ 250 mls/hr IVPB Q4H [facility]; Protocol Last Admin: 06/08/18 05:46 Dose: 250 mls/hr Insulin Aspart (Novolog) 0 unit SC ACHS [facility]; Protocol Last Admin: 06/08/18 08:43 Dose: 1 units Insulin Aspart (Novolog Mix 70/30 (70/30 Units/Ml)) 6 units SC AC [facility] Last Admin: 06/08/18 08:44 Dose: 6 units Insulin Glargine (Lantus) 20 unit SC HS [facility] Last Admin: 06/07/18 22:18 Dose: 20 units Isosorbide Mononitrate (Imdur Er) 30 mg PO DAILY [facility] Last Admin: 06/07/18 09:08 Dose: 30 mg Multivitamins (Hexavitamin) 1 tab PO DAILY [facility] Last Admin: 06/07/18 09:08 Dose: 1 tab Polyethylene Glycol (Miralax) 17 gm PO DAILY PRN PRN Reason: Constipation Rosuvastatin Calcium (Crestor) 5 mg PO HS [facility] Last Admin: 06/04/18 22:01 Dose: 5 mg Saccharomyces Boulardii (Florastor) 250 mg PO BID [facility] Last Admin: 06/07/18 17:28 Dose: 250 mg Sodium Bicarbonate (Sodium Bicarbonate Tab) 1,300 mg PO BID [facility] Last Admin: 06/07/18 17:27 Dose: 1,300 mg Thiamine HCl (Vitamin B1 Tab) 100 mg PO DAILY [facility] Last Admin: 06/07/18 09:28 Dose: 100 mg Tobramycin/Dexamethasone (Tobradex Opht Susp) 0 ml OD Q3 [facility] Last Admin: 06/08/18 06:12 Dose: 1 applic - Labs Labs: 06/08/18 07:58 06/08/18 07:58 APTT 55 SECONDS (21-34) H D 05/28/18 08:32 Assessment and Plan (1) Sepsis Status: Acute (2) EL (acute kidney injury) Status: Acute (3) Diabetic ulcer of left foot Status: Acute (4) Hypertension Status: Chronic (5) Systolic heart failure, chronic Status: Chronic (6) Uncontrolled diabetes mellitus Status: Chronic (7) Non-ischemic cardiomyopathy Status: Acute (8) Conjunctivitis Status: Acute (9) Osteomyelitis Status: Acute (10) Bacteremia Status: Acute (11) Prophylactic measure Status: Acute Attending/Attestation - Attestation I have personally seen and examined this patient.: Yes I have fully participated in the care of the patient.: Yes I have reviewed all pertinent clinical information, including history, physical exam and plan: Yes Notes (Text): This is late computer entry for 06/07/18. Patient seen, examined, and case discussed with medical policy specialist. Patient denies acute complaints. We are awaiting blood cultures from 06/06/18 to be negative prior to PICC line placement. Resident has spoken with radio television technical director given patient has completed eye drops for right eye conjunctivitis but has not improved. No change in visual acuity noted. Renal function continues to improve. Patient's blood pressure medication adjusted.
[2018-06-07] MEDS: (Novolog Mix 70/30) Insulin Aspart/Insulin Aspar 100 units/ml SC SCH ×3 (07:54→17:10)
[2018-06-07] MEDS: (Novolog) Insulin Aspart, Recombinant 100 u/ml 10 ml vial SC SCH ×4 (07:54→22:11)
[2018-06-07 08:31] LABS: BASO # 0.1 K/uL (0.0-0.2); BASO % 1.1 % (0.0-2.0); EOS # 0.1 K/uL (0.0-0.7); EOS % 1.5 % (0.0-4.0); HEMOGLOBIN 11.4 g/dL (12.0-18.0); LYMPH # 1.3 K/uL (1.0-4.3); LYMPH % 15.6 % (20.0-40.0); MEAN CORPUSCULAR HEMOGLOBIN 30.3 pg (27.0-31.0); MEAN CORPUSCULAR HGB CONC 33.6 g/dL (33.0-37.0); MEAN PLATELET VOLUME 8.2 fL (7.2-11.7); MONO # 0.6 K/uL (0.0-0.8); MONO % 7.4 % (0.0-10.0); NEUT # 6.2 K/uL (1.8-7.0); NEUT % 74.4 % (50.0-75.0); RBC 3.78 Mil/uL (4.40-5.90); RED CELL DISTRIBUTION WIDTH 14.2 % (11.5-14.5); WHITE BLOOD COUNT 8.4 K/uL (4.8-10.8)
[2018-06-07] MEDS: Multiple Vitamins Tab PO SCH (09:08)
[2018-06-07] MEDS: Saccharomyces Boulardi 250 mg Cap PO SCH ×2 (09:10→17:28)
[2018-06-07] MEDS: Aritificial Tears (15ml) OU SCH ×2 (09:10→17:39)
[2018-06-07 09:32] LABS: ALB/GLOB RATIO 0.7 (1.0-2.1); ALBUMIN 2.9 g/dL (3.5-5.0)
--- NOTE | 2018-06-07 12:43 | CP.PCM.PN ---
Subjective - Date & Time of Evaluation Date of Evaluation: 06/07/18 Time of Evaluation: 12:43 - Subjective Subjective: Nephrology Consultation Note Assessment: Stable non-oliguric Acute Kidney Injury (N17.9) likely ATN due to sepsis (? 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 anticipate gradual improvement Hypertension control with meds as ordered. Maintain hemodynamics stable. Avoid hypotension. Patient not on ACEI/ARB due to recent EL. coreg increased 25 mg bid meds for CHF being optimized by cardiology Monitor Input/Output, daily weights and renal function with basic metabolic panel continue with lasix c/w sodium bicarb 1300 mg bid avoid correction in serum Na >6-8 meq/24 hrs on weekly Vit D Check urine analysis, spot protein/creatinine, albumin/creatinine ratio, urine for Na/OSmol, renal sonogram Check for 25-OH vitamin D, iPTH, phosphorus level. will check c3/c4/anca as well Dose meds/antibiotics for reduced GFR. Avoid fleets enema/magnesium based laxatives. Avoid nephrotoxins/NSAIDs/ iodinated contrast (unless needed emergently) Glycemic control Further work up for as per primary team Thanks for allowing me to participate in care of your patient. Will follow patient with you. Please call if any Qs. had d/w team Dr Max Chu Office: [phone] Subjective: Noted events overnight. Patients feels better Denies chest pain, palpitation, shortness of breath, leg swelling. All other negative. INA neg for IE Physical Examination: General Appearance: Comfortable, in no acute respiratory distress, co-operative . Vitals reviewed and noted as below Head; Atraumatic, normocephalic ENT: no ulcers no thrush. Tongue is midline. Oropharynx: no rash or ulcers. EYES: Pupils are equal, round and reactive to light accommodation. Eye muscles and extraocular movement intact. Sclera is anicteric. RT eye redness Neck; supple no lymphadenopathy, no thyromegaly or bruit Lungs: Normal respiratory rate/effort. Breath sounds bilateral improved at bases with crackles Heart: Normal rate. s1s2 normal. No rub or gallop. Extremities: no edema. No varicose veins. Rt foot toe amputations in past with superificial scab Neurological: Patient is alert, awake and oriented to person, place and time. No focal deficit. Strength bilateral appropriate and equal Skin: Warm and dry. Normal turgor. No rash. Palpitation: Normal elasticity for age Abdomen: Abdomen is soft. Bowel sounds +. There is no abdominal tenderness, no guarding/rigidity no organomegaly Psych: normal insight and normal affect/mood MSK: no joint tenderness or swelling. Digits and nails normal, no deformity : kidney or bladder not palpable. Labs/imaging reviewed. Past medical history, past surgical history, family history, social history, allergy reviewed and noted as below Family hx: no hx of CKD. Rest non-contributory HIV/Hep B and C neg UA 2+ blood and neg prot Objective - Vital Signs/Intake and Output Vital Signs (last 24 hours): Temp Pulse Resp BP Pulse Ox 98.1 F 82 20 170/75 H 97 06/07/18 07:00 06/07/18 07:00 06/07/18 07:00 06/07/18 09:09 06/07/18 07:00 - Medications Medications: Current Medications Artificial Tears (Artificial Tears) 1 ml OU BID [facility] Last Admin: 06/07/18 09:10 Dose: 1 drop Aspirin (Aspirin Chewable) 81 mg PO DAILY [facility] Last Admin: 06/07/18 09:08 Dose: 81 mg Calcium Acetate (Phoslo) 667 mg PO BIDCC [facility] Last Admin: 06/07/18 08:33 Dose: 667 mg Carvedilol (Coreg) 25 mg PO BID [facility] Dextrose (Dextrose 50% Inj) 0 ml IV STAT PRN; Protocol PRN Reason: Hypoglycemia Protocol Dextrose (Glutose 15) 0 gm PO ONCE PRN; Protocol PRN Reason: Hypoglycemia Protocol Docusate Sodium (Colace) 100 mg PO DAILY [facility] Last Admin: 06/07/18 09:08 Dose: 100 mg Ergocalciferol (Drisdol 50,000 Intl Units Cap) 1 cap PO Q7D [facility] Last Admin: 05/31/18 15:50 Dose: 1 cap Famotidine (Pepcid) 20 mg PO DAILY [facility] Last Admin: 06/07/18 09:10 Dose: 20 mg Folic Acid (Folic Acid) 1 mg PO DAILY [facility] Last Admin: 06/07/18 09:07 Dose: 1 mg Furosemide (Lasix) 40 mg PO DAILY [facility] Last Admin: 06/07/18 09:09 Dose: 40 mg Glucagon (Glucagen Diagnostic Kit) 0 mg IM STAT PRN; Protocol PRN Reason: Hypoglycemia Protocol Heparin Sodium (Porcine) (Heparin) 5,000 units SC Q12 [facility] Last Admin: 06/07/18 09:10 Dose: 5,000 units Hydralazine HCl (Apresoline) 50 mg PO TID [facility] Dextrose (Dextrose 5% In Water 1000 Ml) 1,000 mls @ 0 mls/hr IV .Q0M PRN; Protocol PRN Reason: Hypoglycemia Protocol Nafcillin Sodium 2 gm/ Sodium (Chloride) 250 mls @ 250 mls/hr IVPB Q4H [facility]; Protocol Last Admin: 06/07/18 09:21 Dose: 250 mls/hr Insulin Aspart (Novolog) 0 unit SC ACHS [facility]; Protocol Last Admin: 06/07/18 12:04 Dose: 1 units Insulin Aspart (Novolog Mix 70/30 (70/30 Units/Ml)) 6 units SC AC [facility] Last Admin: 06/07/18 12:03 Dose: 6 units Insulin Glargine (Lantus) 20 unit SC HS [facility] Last Admin: 06/06/18 21:40 Dose: 20 units Isosorbide Mononitrate (Imdur Er) 30 mg PO DAILY [facility] Last Admin: 06/07/18 09:08 Dose: 30 mg Multivitamins (Hexavitamin) 1 tab PO DAILY [facility] Last Admin: 06/07/18 09:08 Dose: 1 tab Polyethylene Glycol (Miralax) 17 gm PO DAILY PRN PRN Reason: Constipation Rosuvastatin Calcium (Crestor) 5 mg PO HS [facility] Last Admin: 06/04/18 22:01 Dose: 5 mg Saccharomyces Boulardii (Florastor) 250 mg PO BID [facility] Last Admin: 06/07/18 09:10 Dose: 250 mg Sodium Bicarbonate (Sodium Bicarbonate Tab) 1,300 mg PO BID [facility] Last Admin: 06/07/18 09:09 Dose: 1,300 mg Thiamine HCl (Vitamin B1 Tab) 100 mg PO DAILY [facility] Last Admin: 06/07/18 09:28 Dose: 100 mg Tobramycin/Dexamethasone (Tobradex Opht Susp) 0 ml OD Q3 [facility] Last Admin: 06/07/18 12:04 Dose: 1 applic - Labs Labs: 06/07/18 08:23 06/07/18 08:23 APTT 55 SECONDS (21-34) H D 05/28/18 08:32
[2018-06-07] MEDS: Ergocalciferol 50,000 Intl Units Cap PO SCH (15:18)
[2018-06-07] MEDS: (Lantus) Insulin Glargine, Recombinant SC SCH (22:18)
[2018-06-08] MEDS: Tobramycin/Dexamethasone (Tobradex) Opth Sol (2.5 ml) OD SCH ×8 (01:02→21:47)
--- NOTE | 2018-06-08 07:20 | CP.PCM.PN ---
<Rosetta King V - Last Filed: 06/08/18 13:03> Objective - Vital Signs/Intake and Output Vital Signs (last 24 hours): Temp Pulse Resp BP Pulse Ox 98.0 F 68 20 156/80 H 96 06/08/18 07:00 06/08/18 07:00 06/08/18 07:00 06/08/18 09:52 06/08/18 07:00 Intake and Output: 06/08/18 06/08/18 06:59 18:59 Intake Total 800 740 Balance 800 740 - Medications Medications: Current Medications Artificial Tears (Artificial Tears) 1 ml OU BID [facility] Last Admin: 06/08/18 09:51 Dose: 1 drop Aspirin (Aspirin Chewable) 81 mg PO DAILY [facility] Last Admin: 06/08/18 09:50 Dose: 81 mg [facility] Last Admin: 06/08/18 08:43 Dose: 667 mg Carvedilol (Coreg) 25 mg PO BID [facility] Last Admin: 06/08/18 09:52 Dose: 25 mg Dextrose (Dextrose 50% Inj) 0 ml IV STAT PRN; Protocol PRN Reason: Hypoglycemia Protocol Dextrose (Glutose 15) 0 gm PO ONCE PRN; Protocol PRN Reason: Hypoglycemia Protocol Docusate Sodium (Colace) 100 mg PO DAILY [facility] Last Admin: 06/08/18 09:51 Dose: Not Given Ergocalciferol (Drisdol 50,000 Intl Units Cap) 1 cap PO Q7D [facility] Last Admin: 06/07/18 15:18 Dose: 1 cap Famotidine (Pepcid) 20 mg PO DAILY [facility] Last Admin: 06/08/18 09:50 Dose: 20 mg Fluticasone Propionate (Flonase) 1 spr JAREN BID [facility] Folic Acid (Folic Acid) 1 mg PO DAILY [facility] Last Admin: 06/08/18 10:10 Dose: 1 mg Furosemide (Lasix) 40 mg PO DAILY [facility] Last Admin: 06/08/18 09:50 Dose: 40 mg Glucagon (Glucagen Diagnostic Kit) 0 mg IM STAT PRN; Protocol PRN Reason: Hypoglycemia Protocol Heparin Sodium (Porcine) (Heparin) 5,000 units SC Q12 [facility] Last Admin: 06/08/18 09:51 Dose: 5,000 units Hydralazine HCl (Apresoline) 50 mg PO TID [facility] Last Admin: 06/08/18 09:50 Dose: 50 mg Dextrose (Dextrose 5% In Water 1000 Ml) 1,000 mls @ 0 mls/hr IV .Q0M PRN; Protocol PRN Reason: Hypoglycemia Protocol Nafcillin Sodium 2 gm/ Sodium (Chloride) 250 mls @ 250 mls/hr IVPB Q4H TEQU[facility]; Pr otocol Last Admin: 06/08/18 09:53 Dose: 250 mls/hr Insulin Aspart (Novolog) 0 unit SC ACHS [facility]; Protocol Last Admin: 06/08/18 12:42 Dose: 1 units Insulin Aspart (Novolog Mix 70/30 (70/30 Units/Ml)) 6 units SC AC [facility] Last Admin: 06/08/18 12:42 Dose: 6 units Insulin Glargine (Lantus) 20 unit SC HS [facility] Last Admin: 06/07/18 22:18 Dose: 20 units Isosorbide Mononitrate (Imdur Er) 30 mg PO DAILY [facility] Last Admin: 06/08/18 09:50 Dose: 30 mg Multivitamins (Hexavitamin) 1 tab PO DAILY [facility] Last Admin: 06/08/18 09:50 Dose: 1 tab Polyethylene Glycol (Miralax) 17 gm PO DAILY PRN PRN Reason: Constipation Rosuvastatin Calcium (Crestor) 5 mg PO HS [facility] Last Admin: 06/04/18 22:01 Dose: 5 mg Saccharomyces Boulardii (Florastor) 250 mg PO BID [facility] Last Admin: 06/08/18 09:50 Dose: 250 mg Sodium Bicarbonate (Sodium Bicarbonate Tab) 1,300 mg PO BID [facility] Last Admin: 06/08/18 10:10 Dose: 1,300 mg Thiamine HCl (Vitamin B1 Tab) 100 mg PO DAILY [facility] Last Admin: 06/08/18 09:49 Dose: 100 mg Tobramycin/Dexamethasone (Tobradex Opht Susp) 0 ml OD Q3 [facility] Last Admin: 06/08/18 09:58 Dose: 1 applic - Labs Labs: 06/08/18 07:58 06/08/18 07:58 APTT 55 SECONDS (21-34) H D 05/28/18 08:32 Assessment and Plan (1) Sepsis Status: Acute (2) EL (acute kidney injury) Status: Acute (3) Diabetic ulcer of left foot Status: Acute (4) Hypertension Status: Chronic (5) Systolic heart failure, chronic Status: Chronic (6) Uncontrolled diabetes mellitus Status: Chronic (7) Non-ischemic cardiomyopathy Status: Acute (8) Conjunctivitis Status: Acute (9) Osteomyelitis Status: Acute (10) Bacteremia Status: Acute (11) Prophylactic measure Status: Acute Attending/Attestation - Attestation I have personally seen and examined this patient.: Yes I have fully participated in the care of the patient.: Yes I have reviewed all pertinent clinical information, including history, physical exam and plan: Yes Notes (Text): Patient seen, examined, case discussed with medical technician. Patient denies any acute complaints. Patient to receive IV antibiotics for at least 6-8 weeks. Patient to be scheduled for a PICC line placement. Order placed for interventional radiologist in light of recent AICD placement. Patient started on fluticasone for nasal congestion. Patient noting improvement in right eye. <Luisa Damon - Last Filed: 06/08/18 16:54> Subjective - Date & Time of Evaluation Date of Evaluation: 06/08/18 Time of Evaluation: 07:19 - Subjective Subjective: PGY-1 Luisa Damon D.O. Medicine progress note for Dr. King's service: Patient was seen and examined this morning. He states his eye is feeling better. Patient is complaining of intermittent diarrhea, especially with abx administrat ion. Objective - Vital Signs/Intake and Output Vital Signs (last 24 hours): Temp Pulse Resp BP Pulse Ox 97.6 F 76 20 136/67 96 06/07/18 23:00 06/07/18 23:00 06/07/18 23:00 06/07/18 23:00 06/07/18 23:00 Intake and Output: 06/08/18 06/08/18 06:59 18:59 Intake Total 800 740 Balance 800 740 - Medications Medications: Current Medications Artificial Tears (Artificial Tears) 1 ml OU BID [facility] Last Admin: 06/07/18 17:39 Dose: 1 drop Aspirin (Aspirin Chewable) 81 mg PO DAILY [facility] Last Admin: 06/07/18 09:08 Dose: 81 mg Calcium Acetate (Phoslo) 667 mg PO BIDCC [facility] Last Admin: 06/07/18 17:39 Dose: 667 mg Carvedilol (Coreg) 25 mg PO BID [facility] Last Admin: 06/07/18 17:50 Dose: 25 mg Dextrose (Dextrose 50% Inj) 0 ml IV STAT PRN; Protocol PRN Reason: Hypoglycemia Protocol Dextrose (Glutose 15) 0 gm PO ONCE PRN; Protocol PRN Reason: Hypoglycemia Protocol Docusate Sodium (Colace) 100 mg PO DAILY [facility] Last Admin: 06/07/18 09:08 Dose: 100 mg Ergocalciferol (Drisdol 50,000 Intl Units Cap) 1 cap PO Q7D [facility] Last Admin: 06/07/18 15:18 Dose: 1 cap Famotidine (Pepcid) 20 mg PO DAILY [facility] Last Admin: 06/07/18 09:10 Dose: 20 mg Folic Acid (Folic Acid) 1 mg PO DAILY [facility] Last Admin: 06/07/18 09:07 Dose: 1 mg Furosemide (Lasix) 40 mg PO DAILY [facility] Last Admin: 06/07/18 09:09 Dose: 40 mg Glucagon (Glucagen Diagnostic Kit) 0 mg IM STAT PRN; Protocol PRN Reason: Hypoglycemia Protocol Heparin Sodium (Porcine) (Heparin) 5,000 units SC Q12 [facility] Last Admin: 06/07/18 22:14 Dose: 5,000 units Hydralazine HCl (Apresoline) 50 mg PO TID [facility] Last Admin: 06/07/18 17:28 Dose: 50 mg Dextrose (Dextrose 5% In Water 1000 Ml) 1,000 mls @ 0 mls/hr IV .Q0M PRN; Protocol PRN Reason: Hypoglycemia Protocol Nafcillin Sodium 2 gm/ Sodium (Chloride) 250 mls @ 250 mls/hr IVPB Q4H [facility]; Protocol Last Admin: 06/08/18 05:46 Dose: 250 mls/hr Insulin Aspart (Novolog) 0 unit SC ACHS [facility]; Protocol Last Admin: 06/07/18 22:11 Dose: Not Given Insulin Aspart (Novolog Mix 70/30 (70/30 Units/Ml)) 6 units SC AC [facility] Last Admin: 06/07/18 17:10 Dose: 6 units Insulin Glargine (Lantus) 20 unit SC HS [facility] Last Admin: 06/07/18 22:18 Dose: 20 units Isosorbide Mononitrate (Imdur Er) 30 mg PO DAILY [facility] Last Admin: 06/07/18 09:08 Dose: 30 mg Multivitamins (Hexavitamin) 1 tab PO DAILY [facility] Last Admin: 06/07/18 09:08 Dose: 1 tab Polyethylene Glycol (Miralax) 17 gm PO DAILY PRN PRN Reason: Constipation Rosuvastatin Calcium (Crestor) 5 mg PO HS [facility] Last Admin: 06/04/18 22:01 Dose: 5 mg Saccharomyces Boulardii (Florastor) 250 mg PO BID [facility] Last Admin: 06/07/18 17:28 Dose: 250 mg Sodium Bicarbonate (Sodium Bicarbonate Tab) 1,300 mg PO BID [facility] Last Admin: 06/07/18 17:27 Dose: 1,300 mg Thiamine HCl (Vitamin B1 Tab) 100 mg PO DAILY [facility] Last Admin: 06/07/18 09:28 Dose: 100 mg Tobramycin/Dexamethasone (Tobradex Opht Susp) 0 ml OD Q3 [facility] Last Admin: 06/08/18 06:12 Dose: 1 applic - Labs Labs: 06/07/18 08:23 06/07/18 08:23 APTT 55 SECONDS (21-34) H D 05/28/18 08:32 - Constitutional Appears: Non-toxic, No Acute Distress - Head Exam Head Exam: ATRAUMATIC, NORMAL INSPECTION, NORMOCEPHALIC - Eye Exam Eye Exam: Conjunctival injection (R eye- improved), EOMI, PERRL - ENT Exam ENT Exam: Mucous Membranes Moist - Neck Exam Neck Exam: Normal Inspection - Respiratory Exam Respiratory Exam: Clear to Ausculation Bilateral, NORMAL BREATHING PATTERN - Cardiovascular Exam Cardiovascular Exam: REGULAR RHYTHM, +S1, +S2 - GI/Abdominal Exam GI & Abdominal Exam: Soft. absent: Tenderness - Rectal Exam Rectal Exam: Deferred - Extremities Exam Additional comments: no change to LE scabbing - Neurological Exam Neurological Exam: Alert, Awake, CN II-XII Intact, Normal Gait, Oriented x3 - Psychiatric Exam Psychiatric exam: Normal Affect, Normal Mood - Skin Skin Exam: Dry, Normal Color, Warm Assessment and Plan - Assessment and Plan (Free Text) Assessment: Patient is a 48 yo male with a history of uncontrolled T2DM and CHF s/p AICD who presented with generalized weakness and falls. Required ICU admission for 1 day due to hypotension- no pressors. Now much clinically improved and downgraded to telemetry unit. Patient's initial blood Cx grew micrococcus species. Subsequent 3 sets grew Staph aureus. INA did not demonstrate vegetations. Negative Certec scan. Bone scan shows possible R foot cellulitis. Repeat Blood Cx negative >48 hrs. R eye conjunctivitis persists- ortho started more eye drops. Scheduled for PICC tomorrow. Will need 6-8 weeks IV abx. Plan: Sepsis with Staph aureus bacteremia- suspect source is cellulits due to R foot amputation site, r/o endocarditis, osteomyelitis - Most recent fever 05/27 100.7 - Leukocytosis and bandemia resolved - Procal 27.53->8.3->0.24 - Lactate 1.8 - ESR 72 - CXR: no active disease - TTE: EF 26%, no vegetations - INA: moderately reduced EF, no vegetations or thrombi - Blood Cx (05/27): Micrococcus species x2 - Repeat Blood Cx (05/28, 05/30, 06/03): Staph aureus x5 - Repeat Blood Cx 06/02 no growth - Repeat Blood Cx 06/06 no growth >48 hrs - Urine, stool Cx no growth - Certec scan negative - R foot XR: no evidence of osteomyelitis - LE arterial and venous studies: no significant abnormalities per vas surgery - 3 view bone scans of b/l LEs: no evidence of osteomyelitis, possible R foot cellulitis - Punch biopsies from R foot- hyperkeratosis - Nafcillin 2 g IV Q4H- started 06/02 - Florastor 250 mg PO BID - ICU consulted - Surgery consulted (James)- no intervention at this time - Podiatry consulted (Ryder)- no intervention at this time - ID consulted (Charly)- rec 6-8 wks IV abx - IR consulted (Jero)- PICC tomorrow - PT/OT- rec home Renal insufficiency, improving- suspect ATN due to sepsis and/or CHF in addition to CKD from DM and HTN - BUN 37->91->36 - Cr 1.6->5.1->2.6 - Avoid ACEI/ARB and other nephrotoxic drugs - Renally dose meds - Maintain normotension - No IVF due to CHF - Nephrology consulted (Junior/Vlad)- no need for dialysis at this time but will continue to follow, continue Lasix R eye conjunctivitis, improving - Artificial tears BID - Bacitracin/Neomycin/polymyxin OD Q3H while awake x7 days- completed - Tobradex OD Q3H- started 06/07 - Ophthalmology consulted (Doron) Systolic heart failure (HFrEF)- s/p AICD - BNP 11,300 - Echo: EF 26% - Strict I's & O's - Daily weights - Fluid restriction <1200 mL/day - ASA 81 mg PO daily - Coreg 25 mg PO BID - Lasix 40 mg PO daily - Hydralazine 25 mg PO TID - Isosorbide nitrate 30 mg PO daily - Cardiology consulted (Hupart) Type 2 diabetes mellitus - A1c 7.8 - Hypoglycemia protocol - Accuchecks ACHS with ISS - Lantus 20 units SC QHS - Aspart 6 u SC AC Transaminitis, resolved - Monitor CMP - Restart statin Secondary hyperparathyroidism- 2/2 kidney disease - Elevated PTH (153) - Low Ca (7) - Elevated Ph (5.2) - Low Vit D (<12.5) - Phoslo 667 mg PO BID - Ergocalciferol 50,000 QWK Dyslipidemia - Choles 112, LDL<30, HDL 12, TG 320-765 (suspect 2nd value is not fasting) - Crestor 5 mg PO QHS- restart 06/08 Elevated D-dimer (1468)- suspect 2/2 kidney disease - V/Q scan: low probability of PE - Cannot get CTA due to kidney function Elevated troponin, improved- h/o nonischemic cardiomyopathy (cath 10/19), suspect 2/2 kidney disease, doubt NSTEMI - Trop: 0.17->0.233->0.222 - EKG: no ST elevations, ventricular-paced rhythm - Cardiology consulted (Hupart)- no heparin or Plavix Hyponatremia, resolved - Avoid correction >6-8 mEq/24 hrs - TSH low (0.31), T4 wnl (1.5) - Serum osm 316 - Urine osm 281 - Urine Na 27, K 6.4 - AM cortisol elevated 29.7 - Sodium bicarb 1300 mg PO TID Thrombocytopenia, resolved- suspect 2/2 kidney disease - Monitor CBC - Hepatitis negative - HIV negative Constipation, resolved - Miralax 17 g PO daily PRN - Colace 100 mg PO daily - FOBT negative Ppx: VTE: heparin 5000 u SC Q12H GI: Pepcid 20 mg PO daily Code status: full code Case was discussed with attending, Dr. King.
[2018-06-08 08:04] LABS: BASO # 0.1 K/uL (0.0-0.2); BASO % 1.3 % (0.0-2.0); EOS # 0.1 K/uL (0.0-0.7); EOS % 1.4 % (0.0-4.0); HEMOGLOBIN 10.7 g/dL (12.0-18.0); LYMPH # 1.5 K/uL (1.0-4.3); LYMPH % 19.4 % (20.0-40.0); MEAN CORPUSCULAR HEMOGLOBIN 30.1 pg (27.0-31.0); MEAN CORPUSCULAR HGB CONC 33.5 g/dL (33.0-37.0); MEAN PLATELET VOLUME 8.3 fL (7.2-11.7); MONO # 0.5 K/uL (0.0-0.8); MONO % 5.8 % (0.0-10.0); NEUT # 5.7 K/uL (1.8-7.0); NEUT % 72.1 % (50.0-75.0); RBC 3.55 Mil/uL (4.40-5.90); RED CELL DISTRIBUTION WIDTH 14.2 % (11.5-14.5); WHITE BLOOD COUNT 7.9 K/uL (4.8-10.8)
[2018-06-08 08:35] LABS: ALB/GLOB RATIO 0.7 (1.0-2.1); ALBUMIN 2.9 g/dL (3.5-5.0); CALCIUM 7.9 mg/dl (8.6-10.4)
[2018-06-08] MEDS: (Novolog) Insulin Aspart, Recombinant 100 u/ml 10 ml vial SC SCH ×4 (08:43→21:31)
[2018-06-08] MEDS: (Novolog Mix 70/30) Insulin Aspart/Insulin Aspar 100 units/ml SC SCH ×3 (08:44→17:51)
[2018-06-08] MEDS: Multiple Vitamins Tab PO SCH (09:50)
[2018-06-08] MEDS: Saccharomyces Boulardi 250 mg Cap PO SCH ×2 (09:50→18:02)
[2018-06-08] MEDS: Aritificial Tears (15ml) OU SCH ×2 (09:51→17:50)
[2018-06-08] MEDS ORDERED: Fluticasone Nasal 50 mcg/Spray NAS SCH (11:15)
--- NOTE | 2018-06-08 15:56 | CP.PCM.PN ---
Subjective - Date & Time of Evaluation Date of Evaluation: 06/08/18 Time of Evaluation: 15:55 - Subjective Subjective: Nephrology Consultation Note Assessment: Stable non-oliguric Acute Kidney Injury (N17.9) likely ATN due to sepsis (? 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 anticipate gradual improvement Hypertension control with meds as ordered. Maintain hemodynamics stable. Avoid hypotension. Patient not on ACEI/ARB due to recent EL. coreg increased 25 mg bid meds for CHF being optimized by cardiology Monitor Input/Output, daily weights and renal function with basic metabolic panel continue with lasix c/w sodium bicarb 1300 mg bid avoid correction in serum Na >6-8 meq/24 hrs on weekly Vit D Dose meds/antibiotics for reduced GFR. Avoid fleets enema/magnesium based laxatives. Avoid nephrotoxins/NSAIDs/ iodinated contrast (unless needed emergently) Glycemic control Further work up for as per primary team Thanks for allowing me to participate in care of your patient. Will follow patient with you. Please call if any Qs. had d/w team Dr Max Chu Office: [phone] Subjective: Noted events overnight. Patients feels better Denies chest pain, palpitation, shortness of breath, leg swelling. All other negative. INA neg for IE Physical Examination: General Appearance: Comfortable, in no acute respiratory distress, co-operative . Vitals reviewed and noted as below Head; Atraumatic, normocephalic ENT: no ulcers no thrush. Tongue is midline. Oropharynx: no rash or ulcers. EYES: Pupils are equal, round and reactive to light accommodation. Eye muscles and extraocular movement intact. Sclera is anicteric. RT eye redness Neck; supple no lymphadenopathy, no thyromegaly or bruit Lungs: Normal respiratory rate/effort. Breath sounds bilateral improved at bases with crackles Heart: Normal rate. s1s2 normal. No rub or gallop. Extremities: no edema. No varicose veins. Rt foot toe amputations in past with superificial scab Neurological: Patient is alert, awake and oriented to person, place and time. No focal deficit. Strength bilateral appropriate and equal Skin: Warm and dry. Normal turgor. No rash. Palpitation: Normal elasticity for age Abdomen: Abdomen is soft. Bowel sounds +. There is no abdominal tenderness, no guarding/rigidity no organomegaly Psych: normal insight and normal affect/mood MSK: no joint tenderness or swelling. Digits and nails normal, no deformity : kidney or bladder not palpable. Labs/imaging reviewed. Past medical history, past surgical history, family history, social history, allergy reviewed and noted as below Family hx: no hx of CKD. Rest non-contributory HIV/Hep B and C neg UA 2+ blood and neg prot Objective - Vital Signs/Intake and Output Vital Signs (last 24 hours): Temp Pulse Resp BP Pulse Ox 98.0 F 68 20 156/80 H 96 06/08/18 07:00 06/08/18 07:00 06/08/18 07:00 06/08/18 09:52 06/08/18 07:00 Intake and Output: 06/08/18 06/08/18 06:59 18:59 Intake Total 800 740 Balance 800 740 - Medications Medications: Current Medications Artificial Tears (Artificial Tears) 1 ml OU BID [facility] Last Admin: 06/08/18 09:51 Dose: 1 drop Aspirin (Aspirin Chewable) 81 mg PO DAILY [facility] Last Admin: 06/08/18 09:50 Dose: 81 mg Calcium Acetate (Phoslo) 667 mg PO BIDCC [facility] Last Admin: 06/08/18 08:43 Dose: 667 mg Carvedilol (Coreg) 25 mg PO BID [facility] Last Admin: 06/08/18 09:52 Dose: 25 mg Dextrose (Dextrose 50% Inj) 0 ml IV STAT PRN; Protocol PRN Reason: Hypoglycemia Protocol Dextrose (Glutose 15) 0 gm PO ONCE PRN; Protocol PRN Reason: Hypoglycemia Protocol Docusate Sodium (Colace) 100 mg PO DAILY [facility] Last Admin: 06/08/18 09:51 Dose: Not Given Ergocalciferol (Drisdol 50,000 Intl Units Cap) 1 cap PO Q7D [facility] Last Admin: 06/07/18 15:18 Dose: 1 cap Famotidine (Pepcid) 20 mg PO DAILY [facility] Last Admin: 06/08/18 09:50 Dose: 20 mg Fluticasone Propionate (Flonase) 1 spr JAREN BID [facility] Folic Acid (Folic Acid) 1 mg PO DAILY [facility] Last Admin: 06/08/18 10:10 Dose: 1 mg Furosemide (Lasix) 40 mg PO DAILY [facility] Last Admin: 06/08/18 09:50 Dose: 40 mg Glucagon (Glucagen Diagnostic Kit) 0 mg IM STAT PRN; Protocol PRN Reason: Hypoglycemia Protocol Heparin Sodium (Porcine) (Heparin) 5,000 units SC Q12 [facility] Last Admin: 06/08/18 09:51 Dose: 5,000 units Hydralazine HCl (Apresoline) 50 mg PO TID [facility] Last Admin: 06/08/18 13:17 Dose: 50 mg Dextrose (Dextrose 5% In Water 1000 Ml) 1,000 mls @ 0 mls/hr IV .Q0M PRN; Protocol PRN Reason: Hypoglycemia Protocol Nafcillin Sodium 2 gm/ Sodium (Chloride) 250 mls @ 250 mls/hr IVPB Q4H [facility]; Protocol Last Admin: 06/08/18 14:32 Dose: 250 mls/hr Insulin Aspart (Novolog) 0 unit SC ACHS [facility]; Protocol Last Admin: 06/08/18 12:42 Dose: 1 units Insulin Aspart (Novolog Mix 70/30 (70/30 Units/Ml)) 6 units SC AC [facility] Last Admin: 06/08/18 12:42 Dose: 6 units Insulin Glargine (Lantus) 20 unit SC HS [facility] Last Admin: 06/07/18 22:18 Dose: 20 units Isosorbide Mononitrate (Imdur Er) 30 mg PO DAILY [facility] Last Admin: 06/08/18 09:50 Dose: 30 mg Loperamide HCl (Imodium) 2 mg PO QID PRN PRN Reason: Diarrhea Last Admin: 06/08/18 14:32 Dose: 2 mg Multivitamins (Hexavitamin) 1 tab PO DAILY [facility] Last Admin: 06/08/18 09:50 Dose: 1 tab Polyethylene Glycol (Miralax) 17 gm PO DAILY PRN PRN Reason: Constipation Rosuvastatin Calcium (Crestor) 5 mg PO [facility] Last Admin: 06/04/18 22:01 Dose: 5 mg Saccharomyces Boulardii (Florastor) 250 mg PO BID [facility] Last Admin: 06/08/18 09:50 Dose: 250 mg Sodium Bicarbonate (Sodium Bicarbonate Tab) 1,300 mg PO BID [facility] Last Admin: 06/08/18 10:10 Dose: 1,300 mg Thiamine HCl (Vitamin B1 Tab) 100 mg PO DAILY [facility] Last Admin: 06/08/18 09:49 Dose: 100 mg Tobramycin/Dexamethasone (Tobradex Opht Susp) 0 ml OD Q3 [facility] Last Admin: 06/08/18 13:20 Dose: 1 applic - Labs Labs: 06/08/18 07:58 06/08/18 07:58 APTT 55 SECONDS (21-34) H D 05/28/18 08:32
[2018-06-08] MEDS: Fluticasone Nasal 50 mcg/Spray NAS SCH (17:49)
[2018-06-08] MEDS: (Lantus) Insulin Glargine, Recombinant SC SCH (21:30)
--- NOTE | 2018-06-08 22:06 | CP.PCM.PN ---
Subjective - Date & Time of Evaluation Date of Evaluation: 06/08/18 Time of Evaluation: 07:00 - Subjective Subjective: afebrile blood cultures neg at 48 h would wait for final report before PICC line Objective - Vital Signs/Intake and Output Vital Signs (last 24 hours): Temp Pulse Resp BP Pulse Ox 97.6 F 80 20 173/80 H 97 06/08/18 16:00 06/08/18 16:00 06/08/18 16:00 06/08/18 17:52 06/08/18 16:00 Intake and Output: 06/08/18 06/09/18 18:59 06:59 Intake Total 740 Balance 740 - Medications Medications: Current Medications Artificial Tears (Artificial Tears) 1 ml OU BID [facility] Last Admin: 06/08/18 17:50 Dose: 1 drop Aspirin (Aspirin Chewable) 81 mg PO DAILY [facility] Last Admin: 06/08/18 09:50 Dose: 81 mg Calcium Acetate (Phoslo) 667 mg PO BIDCC [facility] Last Admin: 06/08/18 17:51 Dose: 667 mg Carvedilol (Coreg) 25 mg PO BID [facility] Last Admin: 06/08/18 17:52 Dose: 25 mg Dextrose (Dextrose 50% Inj) 0 ml IV STAT PRN; Protocol PRN Reason: Hypoglycemia Protocol Dextrose (Glutose 15) 0 gm PO ONCE PRN; Protocol PRN Reason: Hypoglycemia Protocol Docusate Sodium (Colace) 100 mg PO DAILY [facility] Last Admin: 06/08/18 09:51 Dose: Not Given Ergocalciferol (Drisdol 50,000 Intl Units Cap) 1 cap PO Q7D [facility] Last Admin: 06/07/18 15:18 Dose: 1 cap Famotidine (Pepcid) 20 mg PO DAILY [facility] Last Admin: 06/08/18 09:50 Dose: 20 mg Fluticasone Propionate (Flonase) 1 spr JAREN BID [facility] Last Admin: 06/08/18 17:49 Dose: 1 spr Folic Acid (Folic Acid) 1 mg PO DAILY [facility] Last Admin: 06/08/18 10:10 Dose: 1 mg Furosemide (Lasix) 40 mg PO DAILY [facility] Last Admin: 06/08/18 09:50 Dose: 40 mg Glucagon (Glucagen Diagnostic Kit) 0 mg IM STAT PRN; Protocol PRN Reason: Hypoglycemia Protocol Heparin Sodium (Porcine) (Heparin) 5,000 units SC Q12 [facility] Last Admin: 06/08/18 21:47 Dose: 5,000 units Hydralazine HCl (Apresoline) 50 mg PO TID [facility] Last Admin: 06/08/18 17:51 Dose: 50 mg Dextrose (Dextrose 5% In Water 1000 Ml) 1,000 mls @ 0 mls/hr IV .Q0M PRN; Protocol PRN Reason: Hypoglycemia Protocol Nafcillin Sodium 2 gm/ Sodium (Chloride) 250 mls @ 250 mls/hr IVPB Q4H [facility]; Protocol Last Admin: 06/08/18 21:47 Dose: 250 mls/hr Insulin Aspart (Novolog) 0 unit SC ACHS [facility]; Protocol Last Admin: 06/08/18 21:31 Dose: Not Given Insulin Aspart (Novolog Mix 70/30 (70/30 Units/Ml)) 6 units SC AC [facility] Last Admin: 06/08/18 17:51 Dose: 6 units Insulin Glargine (Lantus) 20 unit SC HS [facility] Last Admin: 06/08/18 21:30 Dose: Not Given Isosorbide Mononitrate (Imdur Er) 30 mg PO DAILY [facility] Last Admin: 06/08/18 09:50 Dose: 30 mg Loperamide HCl (Imodium) 2 mg PO QID PRN PRN Reason: Diarrhea Last Admin: 06/08/18 14:32 Dose: 2 mg Multivitamins (Hexavitamin) 1 tab PO DAILY [facility] Last Admin: 06/08/18 09:50 Dose: 1 tab Polyethylene Glycol (Miralax) 17 gm PO DAILY PRN PRN Reason: Constipation Rosuvastatin Calcium (Crestor) 5 mg PO [facility] Last Admin: 06/08/18 21:48 Dose: 5 mg Saccharomyces Boulardii (Florastor) 250 mg PO BID [facility] Last Admin: 06/08/18 18:02 Dose: 250 mg Sodium Bicarbonate (Sodium Bicarbonate Tab) 1,300 mg PO BID [facility] Last Admin: 06/08/18 17:51 Dose: 1,300 mg Thiamine HCl (Vitamin B1 Tab) 100 mg PO DAILY [facility] Last Admin: 06/08/18 09:49 Dose: 100 mg Tobramycin/Dexamethasone (Tobradex Opht Susp) 0 ml OD Q3 [facility] Last Admin: 06/08/18 21:47 Dose: 1 applic - Labs Labs: 06/08/18 07:58 06/08/18 07:58 APTT 55 SECONDS (21-34) H D 05/28/18 08:32 Assessment and Plan (1) Bacteremia Status: Acute (2) Acute on chronic systolic (congestive) heart failure Status: Acute (3) CHF exacerbation Status: Acute (4) Dilated cardiomyopathy Status: Acute (5) NSTEMI (non-ST elevated myocardial infarction) Status: Acute (6) Sepsis Status: Acute
[2018-06-09] MEDS: Tobramycin/Dexamethasone (Tobradex) Opth Sol (2.5 ml) OD SCH ×8 (01:33→22:10)
[2018-06-09 07:37] LABS: BASO # 0.1 K/uL (0.0-0.2); BASO % 1.8 % (0.0-2.0); EOS # 0.1 K/uL (0.0-0.7); EOS % 1.5 % (0.0-4.0); HEMOGLOBIN 9.9 g/dL (12.0-18.0); LYMPH # 1.5 K/uL (1.0-4.3); LYMPH % 21.8 % (20.0-40.0); MEAN CELL VOLUME 91.2 fL (80.0-94.0); MEAN CORPUSCULAR HEMOGLOBIN 30.6 pg (27.0-31.0); MEAN CORPUSCULAR HGB CONC 33.6 g/dL (33.0-37.0); MEAN PLATELET VOLUME 8.2 fL (7.2-11.7); MONO # 0.4 K/uL (0.0-0.8); MONO % 5.3 % (0.0-10.0); NEUT # 4.7 K/uL (1.8-7.0); NEUT % 69.6 % (50.0-75.0); RBC 3.23 Mil/uL (4.40-5.90); RED CELL DISTRIBUTION WIDTH 14.2 % (11.5-14.5); WHITE BLOOD COUNT 6.7 K/uL (4.8-10.8)
[2018-06-09] MEDS: (Novolog Mix 70/30) Insulin Aspart/Insulin Aspar 100 units/ml SC SCH ×3 (08:26→16:41)
[2018-06-09] MEDS: (Novolog) Insulin Aspart, Recombinant 100 u/ml 10 ml vial SC SCH ×4 (08:26→21:16)
[2018-06-09 08:37] LABS: ALB/GLOB RATIO 0.7 (1.0-2.1); ALBUMIN 2.6 g/dL (3.5-5.0); CALCIUM 7.9 mg/dl (8.6-10.4)
[2018-06-09] MEDS: Multiple Vitamins Tab PO SCH (10:22)
[2018-06-09] MEDS: Fluticasone Nasal 50 mcg/Spray NAS SCH ×2 (10:25→17:36)
[2018-06-09] MEDS: Aritificial Tears (15ml) OU SCH ×2 (10:25→17:36)
--- NOTE | 2018-06-09 11:08 | CP.PCM.PN ---
Subjective - Date & Time of Evaluation Date of Evaluation: 06/09/18 Time of Evaluation: 11:08 - Subjective Subjective: PGY-[address] King Patient seen and examined at bedside. No acute events overnight per nursing. Patient not complaining of any fevers, chills, or fatigue. He is still complaining of right eye irritation/pruritus, continuing tobradex and artificial tears. Patient complaining of new left hand swelling this morning- LUE to r/o DVT. Otherwise patient denies shortness of breath, chest pain, nausea, vomiting, dizziness, headache. Objective - Vital Signs/Intake and Output Vital Signs (last 24 hours): Temp Pulse Resp BP Pulse Ox 97.7 F 81 20 119/72 98 06/09/18 07:00 06/09/18 07:00 06/09/18 07:00 06/09/18 10:23 06/09/18 07:00 Intake and Output: 06/09/18 06/09/18 06:59 18:59 Intake Total 1500 Balance 1500 - Medications Medications: Current Medications Artificial Tears (Artificial Tears) 1 ml OU BID [facility] Last Admin: 06/09/18 10:25 Dose: 1 drop Aspirin (Aspirin Chewable) 81 mg PO DAILY [facility] Last Admin: 06/09/18 10:22 Dose: 81 mg [facility] Last Admin: 06/09/18 10:22 Dose: 667 mg Carvedilol (Coreg) 25 mg PO BID [facility] Last Admin: 06/09/18 10:23 Dose: 25 mg Dextrose (Dextrose 50% Inj) 0 ml IV STAT PRN; Protocol PRN Reason: Hypoglycemia Protocol Dextrose (Glutose 15) 0 gm PO ONCE PRN; Protocol PRN Reason: Hypoglycemia Protocol Docusate Sodium (Colace) 100 mg PO DAILY [facility] Last Admin: 06/09/18 10:23 Dose: Not Given Ergocalciferol (Drisdol 50,000 Intl Units Cap) 1 cap PO Q7D [facility] Last Admin: 06/07/18 15:18 Dose: 1 cap Famotidine (Pepcid) 20 mg PO DAILY [facility] Last Admin: 06/09/18 10:21 Dose: 20 mg Fluticasone Propionate (Flonase) 1 spr JAREN BID [facility] Last Admin: 06/09/18 10:25 Dose: 1 spr Folic Acid (Folic Acid) 1 mg PO DAILY [facility] Last Admin: 06/09/18 10:21 Dose: 1 mg Furosemide (Lasix) 40 mg PO DAILY [facility] Last Admin: 06/09/18 10:22 Dose: 40 mg Glucagon (Glucagen Diagnostic Kit) 0 mg IM STAT PRN; Protocol PRN Reason: Hypoglycemia Protocol Heparin Sodium (Porcine) (Heparin) 5,000 units SC Q12 [facility] Last Admin: 06/09/18 10:22 Dose: 5,000 units Hydralazine HCl (Apresoline) 50 mg PO TID [facility] Last Admin: 06/09/18 10:23 Dose: 50 mg Dextrose (Dextrose 5% In Water 1000 Ml) 1,000 mls @ 0 mls/hr IV .Q0M PRN; Protocol PRN Reason: Hypoglycemia Protocol Nafcillin Sodium 2 gm/ Sodium (Chloride) 250 mls @ 250 mls/hr IVPB Q4H [facility]; Protocol Last Admin: 06/09/18 10:25 Dose: 250 mls/hr Insulin Aspart (Novolog) 0 unit SC ACHS [facility]; Protocol Last Admin: 06/09/18 08:26 Dose: Not Given Insulin Aspart (Novolog Mix 70/30 (70/30 Units/Ml)) 6 units SC AC [facility] Last Admin: 06/09/18 08:26 Dose: Not Given Insulin Glargine (Lantus) 20 unit SC HS [facility] Last Admin: 06/08/18 21:30 Dose: Not Given Isosorbide Mononitrate (Imdur Er) 30 mg PO DAILY [facility] Last Admin: 06/09/18 10:21 Dose: 30 mg Loperamide HCl (Imodium) 2 mg PO QID PRN PRN Reason: Diarrhea Last Admin: 06/08/18 14:32 Dose: 2 mg Multivitamins (Hexavitamin) 1 tab PO DAILY [facility] Last Admin: 06/09/18 10:22 Dose: 1 tab Polyethylene Glycol (Miralax) 17 gm PO DAILY PRN PRN Reason: Constipation Rosuvastatin Calcium (Crestor) 5 mg PO HS [facility] Last Admin: 06/08/18 21:48 Dose: 5 mg Saccharomyces Boulardii (Florastor) 250 mg PO BID [facility] Last Admin: 06/08/18 18:02 Dose: 250 mg Sodium Bicarbonate (Sodium Bicarbonate Tab) 1,300 mg PO BID [facility] Last Admin: 06/09/18 10:22 Dose: 1,300 mg Thiamine HCl (Vitamin B1 Tab) 100 mg PO DAILY [facility] Last Admin: 06/09/18 10:22 Dose: 100 mg Tobramycin/Dexamethasone (Tobradex Opht Susp) 0 ml OD Q3 [facility] Last Admin: 06/09/18 10:26 Dose: 1 applic - Labs Labs: 06/09/18 07:33 06/09/18 07:33 APTT 55 SECONDS (21-34) H D 05/28/18 08:32 - Constitutional Appears: Non-toxic, No Acute Distress - Head Exam Head Exam: ATRAUMATIC, NORMAL INSPECTION - Eye Exam Eye Exam: EOMI Additional comments: [id number] conjunctival injection of R eye - ENT Exam ENT Exam: Mucous Membranes Moist - Respiratory Exam Respiratory Exam: Clear to Ausculation Bilateral, NORMAL BREATHING PATTERN. absent: Rhonchi, Wheezes - Cardiovascular Exam Cardiovascular Exam: REGULAR RHYTHM, +S1, +S2 - GI/Abdominal Exam GI & Abdominal Exam: Soft, Normal Bowel Sounds. absent: Tenderness - Extremities Exam Additional comments: mild left hand edema - Neurological Exam Neurological Exam: Alert, Awake, CN II-XII Intact, Oriented x3 - Psychiatric Exam Psychiatric exam: Normal Affect, Normal Mood - Skin Skin Exam: Dry, Intact, Normal Color, Warm Assessment and Plan - Assessment and Plan (Free Text) Assessment: Patient is a 48 yo male with a history of uncontrolled T2DM and CHF s/p AICD who presented with generalized weakness and falls. Required ICU admission for 1 day due to hypotension- no pressors. Now much clinically improved and downgraded to telemetry unit. Patient's initial blood Cx grew micrococcus species. Subsequent 3 sets grew Staph aureus. INA did not demonstrate vegetations. Negative Certec scan. Bone scan shows possible R foot cellulitis. Repeat Blood Cx negative >48 hrs. R eye conjunctivitis persists- Abx drops finished, continuing Tobradex. PICC to be placed today. Will need 6-8 weeks IV abx. Plan: Sepsis with Staph aureus bacteremia- suspect source is cellulits due to R foot amputation site, r/o endocarditis, osteomyelitis - Most recent fever 05/27 100.7 - Leukocytosis and bandemia resolved - Procal 27.53->8.3->0.24 - Lactate 1.8 - ESR 72 - CXR: no active disease - TTE: EF 26%, no vegetations - INA: moderately reduced EF, no vegetations or thrombi - Blood Cx (05/27): Micrococcus species x2 - Repeat Blood Cx (05/28, 05/30, 06/03): Staph aureus x5 - Repeat Blood Cx 06/02 no growth - Repeat Blood Cx 06/06 no growth >48 hrs - Urine, stool Cx no growth - Certec scan negative - R foot XR: no evidence of osteomyelitis - LE arterial and venous studies: no significant abnormalities per [facility] surgery - 3 view bone scans of b/l LEs: no evidence of osteomyelitis, possible R foot cellulitis - Punch biopsies from R foot- hyperkeratosis - Nafcillin 2 g IV Q4H- started 06/02; will need 6-8 weeks total IV Abx. - Florastor 250 mg PO BID - ICU consulted - Surgery consulted (James)- no intervention at this time - Podiatry consulted (Ryder)- no intervention at this time - ID consulted (Charly)- rec 6-8 wks IV abx - IR consulted (Jero)- PICC tomorrow - PT/OT- rec home Acute LUE Edema - LUE duplex US r/o DVT - f/u - ML due to IV infiltration - Apply warm compress Renal insufficiency, improving- suspect ATN due to sepsis and/or CHF in addition to CKD from DM and HTN - BUN 37->91-> -> 34 - Cr 1.6->5.1->2.5 - Avoid ACEI/ARB and other nephrotoxic drugs - Renally dose meds - Maintain normotension - No IVF due to CHF - Nephrology consulted (Junior/Vlad)- no need for dialysis at this time but will continue to follow, continue Lasix R eye conjunctivitis, improving - Artificial tears BID - Bacitracin/Neomycin/polymyxin OD Q3H while awake x7 days- completed - Tobradex OD Q3H- started 06/07 - Ophthalmology consulted (Doron) Systolic heart failure (HFrEF)- s/p AICD - BNP 11,300 - Echo: EF 26% - Strict I's & O's - Daily weights - Fluid restriction <1200 mL/day - ASA 81 mg PO daily - Coreg 25 mg PO BID - Lasix 40 mg PO daily - Hydralazine 25 mg PO TID - Isosorbide nitrate 30 mg PO daily - Cardiology consulted (Hupart) Type 2 diabetes mellitus - A1c 7.8 - Hypoglycemia protocol - Accuchecks ACHS with ISS - Lantus 20 units SC QHS - Aspart 6 u SC AC Transaminitis, resolved - Monitor CMP - Restart statin Secondary hyperparathyroidism- 2/2 kidney disease - Elevated PTH (153) - Low Ca (7) - Elevated Ph (5.2) - Low Vit D (<12.5) - Phoslo 667 mg PO BID - Ergocalciferol 50,000 QWK Dyslipidemia - Choles 112, LDL<30, HDL 12, TG 320-765 (suspect 2nd value is not fasting) - Crestor 5 mg PO QHS- restart 06/08 Elevated D-dimer (1468)- suspect 2/2 kidney disease - V/Q scan: low probability of PE - Cannot get CTA due to kidney function Elevated troponin, improved- h/o nonischemic cardiomyopathy (cath 10/19), suspect 2/2 kidney disease, doubt NSTEMI - Trop: 0.17->0.233->0.222 - EKG: no ST elevations, ventricular-paced rhythm - Cardiology consulted (Hupart)- no heparin or Plavix Hyponatremia, resolved - Avoid correction >6-8 mEq/24 hrs - TSH low (0.31), T4 wnl (1.5) - Serum osm 316 - Urine osm 281 - Urine Na 27, K 6.4 - AM cortisol elevated 29.7 - Sodium bicarb 1300 mg PO TID Thrombocytopenia, resolved- suspect 2/2 kidney disease - Monitor CBC - Hepatitis negative - HIV negative Constipation, resolved - Miralax 17 g PO daily PRN - Colace 100 mg PO daily - FOBT negative Ppx: VTE: heparin 5000 u SC Q12H GI: Pepcid 20 mg PO daily Code status: full code Case was discussed with attending, Dr. King. Jeremias Rock, PGY-1
[2018-06-09] MEDS: Saccharomyces Boulardi 250 mg Cap PO SCH ×2 (11:41→17:37)
--- NOTE | 2018-06-09 15:02 | CP.PCM.PN ---
Subjective - Date & Time of Evaluation Date of Evaluation: 06/09/18 Time of Evaluation: 15:02 - Subjective Subjective: Nephrology Consultation Note Assessment: Stable non-oliguric Acute Kidney Injury (N17.9) likely ATN due to sepsis (? 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 anticipate gradual improvement Hypertension control with meds as ordered. Maintain hemodynamics stable. Avoid hypotension. Patient not on ACEI/ARB due to recent EL. coreg increased 25 mg bid meds for CHF being optimized by cardiology Monitor Input/Output, daily weights and renal function with basic metabolic panel continue with lasix c/w sodium bicarb 1300 mg bid avoid correction in serum Na >6-8 meq/24 hrs on weekly Vit D Dose meds/antibiotics for reduced GFR. Avoid fleets enema/magnesium based laxatives. Avoid nephrotoxins/NSAIDs/ iodinated contrast (unless needed emergently) Glycemic control Further work up for as per primary team Thanks for allowing me to participate in care of your patient. Will follow patient with you. Please call if any Qs. had d/w team Dr Max Chu Office: [phone] Subjective: Noted events overnight. Patients feels better Denies chest pain, palpitation, shortness of breath, leg swelling. All other negative. INA neg for IE Physical Examination: General Appearance: Comfortable, in no acute respiratory distress, co-operative . Vitals reviewed and noted as below Head; Atraumatic, normocephalic ENT: no ulcers no thrush. Tongue is midline. Oropharynx: no rash or ulcers. EYES: Pupils are equal, round and reactive to light accommodation. Eye muscles and extraocular movement intact. Sclera is anicteric. RT eye redness Neck; supple no lymphadenopathy, no thyromegaly or bruit Lungs: Normal respiratory rate/effort. Breath sounds bilateral improved at bases with crackles Heart: Normal rate. s1s2 normal. No rub or gallop. Extremities: no edema. No varicose veins. Rt foot toe amputations in past with superificial scab Neurological: Patient is alert, awake and oriented to person, place and time. No focal deficit. Strength bilateral appropriate and equal Skin: Warm and dry. Normal turgor. No rash. Palpitation: Normal elasticity for age Abdomen: Abdomen is soft. Bowel sounds +. There is no abdominal tenderness, no guarding/rigidity no organomegaly Psych: normal insight and normal affect/mood MSK: no joint tenderness or swelling. Digits and nails normal, no deformity : kidney or bladder not palpable. Labs/imaging reviewed. Past medical history, past surgical history, family history, social history, allergy reviewed and noted as below Family hx: no hx of CKD. Rest non-contributory HIV/Hep B and C neg UA 2+ blood and neg prot Objective - Vital Signs/Intake and Output Vital Signs (last 24 hours): Temp Pulse Resp BP Pulse Ox 97.7 F 81 20 119/72 98 06/09/18 07:00 06/09/18 07:00 06/09/18 07:00 06/09/18 10:23 06/09/18 07:00 Intake and Output: 06/09/18 06/09/18 06:59 18:59 Intake Total 1500 Balance 1500 - Medications Medications: Current Medications Artificial Tears (Artificial Tears) 1 ml OU BID [facility] Last Admin: 06/09/18 10:25 Dose: 1 drop Aspirin (Aspirin Chewable) 81 mg PO DAILY [facility] Last Admin: 06/09/18 10:22 Dose: 81 mg Calcium Acetate (Phoslo) 667 mg PO BIDCC [facility] Last Admin: 06/09/18 10:22 Dose: 667 mg Carvedilol (Coreg) 25 mg PO BID [facility] Last Admin: 06/09/18 10:23 Dose: 25 mg Dextrose (Dextrose 50% Inj) 0 ml IV STAT PRN; Protocol PRN Reason: Hypoglycemia Protocol Dextrose (Glutose 15) 0 gm PO ONCE PRN; Protocol PRN Reason: Hypoglycemia Protocol Docusate Sodium (Colace) 100 mg PO DAILY [facility] Last Admin: 06/09/18 10:23 Dose: Not Given Ergocalciferol (Drisdol 50,000 Intl Units Cap) 1 cap PO Q7D [facility] Last Admin: 06/07/18 15:18 Dose: 1 cap Famotidine (Pepcid) 20 mg PO DAILY [facility] Last Admin: 06/09/18 10:21 Dose: 20 mg Fluticasone Propionate (Flonase) 1 spr JAREN BID [facility] Last Admin: 06/09/18 10:25 Dose: 1 spr Folic Acid (Folic Acid) 1 mg PO DAILY [facility] Last Admin: 06/09/18 10:21 Dose: 1 mg Furosemide (Lasix) 40 mg PO DAILY [facility] Last Admin: 06/09/18 10:22 Dose: 40 mg Glucagon (Glucagen Diagnostic Kit) 0 mg IM STAT PRN; Protocol PRN Reason: Hypoglycemia Protocol Heparin Sodium (Porcine) (Heparin) 5,000 units SC Q12 [facility] Last Admin: 06/09/18 10:22 Dose: 5,000 units Hydralazine HCl (Apresoline) 50 mg PO TID [facility] Last Admin: 06/09/18 13:55 Dose: 50 mg Dextrose (Dextrose 5% In Water 1000 Ml) 1,000 mls @ 0 mls/hr IV .Q0M PRN; Protocol PRN Reason: Hypoglycemia Protocol Nafcillin Sodium 2 gm/ Sodium (Chloride) 250 mls @ 250 mls/hr IVPB Q4H [facility]; Protocol Last Admin: 06/09/18 13:56 Dose: 250 mls/hr Insulin Aspart (Novolog) 0 unit SC ACHS [facility]; Protocol Last Admin: 06/09/18 12:50 Dose: 2 units Insulin Aspart (Novolog Mix 70/30 (70/30 Units/Ml)) 6 units SC AC [facility] Last Admin: 06/09/18 12:49 Dose: 6 units Insulin Glargine (Lantus) 20 unit SC HS [facility] Last Admin: 06/08/18 21:30 Dose: Not Given Isosorbide Mononitrate (Imdur Er) 30 mg PO DAILY [facility] Last Admin: 06/09/18 10:21 Dose: 30 mg Loperamide HCl (Imodium) 2 mg PO QID PRN PRN Reason: Diarrhea Last Admin: 06/09/18 13:55 Dose: 2 mg Multivitamins (Hexavitamin) 1 tab PO DAILY [facility] Last Admin: 06/09/18 10:22 Dose: 1 tab Polyethylene Glycol (Miralax) 17 gm PO DAILY PRN PRN Reason: Constipation Rosuvastatin Calcium (Crestor) 5 mg PO [facility] Last Admin: 06/08/18 21:48 Dose: 5 mg Saccharomyces Boulardii (Florastor) 250 mg PO BID [facility] Last Admin: 06/09/18 11:41 Dose: 250 mg Sodium Bicarbonate (Sodium Bicarbonate Tab) 1,300 mg PO BID [facility] Last Admin: 06/09/18 10:22 Dose: 1,300 mg Thiamine HCl (Vitamin B1 Tab) 100 mg PO DAILY [facility] Last Admin: 06/09/18 10:22 Dose: 100 mg Tobramycin/Dexamethasone (Tobradex Opht Susp) 0 ml OD Q3 [facility] Last Admin: 06/09/18 12:50 Dose: 1 applic - Labs Labs: 06/09/18 07:33 06/09/18 07:33 APTT 55 SECONDS (21-34) H D 05/28/18 08:32
[2018-06-09] MEDS: (Lantus) Insulin Glargine, Recombinant SC SCH (22:15)
[2018-06-10] MEDS: Tobramycin/Dexamethasone (Tobradex) Opth Sol (2.5 ml) OD SCH ×8 (01:02→21:31)
--- NOTE | 2018-06-10 07:05 | VASCLAB ---
Date of service: 06/09/2018 PROCEDURE: Left Upper Extremity Venous Duplex Exam HISTORY: DVT PRIORS: None. TECHNIQUE: Left upper extremity, internal jugular, subclavian, axillary, brachial, ulnar, radial, basilic and upper cephalic veins were evaluated. Flow was assessed with color Doppler, compressibility, assessment of phasic flow and augmentation response. Report prepared by JANUARY Hand FINDINGS: LEFT: 1. Internal Jugular: 1.1. Compressibility - Fully compressible: Thrombus - None : Flow - Phasic: Augmentation -Normal: Reflux - None. 2. Subclavian: 2.1. Compressibility - Fully compressible: Thrombus - None : Flow - Phasic: Augmentation -Normal: Reflux - None. 3. Axillary: 3.1. Compressibility - Fully compressible: Thrombus - None : Flow - Phasic: Augmentation -Normal: Reflux - None. 4. Brachial: 4.1. Compressibility - Fully compressible: Thrombus - None: Flow - Phasic: Augmentation -Normal: Reflux - None. 5. Ulnar: 5.1. Compressibility - Fully compressible: Thrombus - None: Flow - Phasic: Augmentation -Normal: Reflux - None. 6. Radial: 6.1. Compressibility - Fully compressible: Thrombus - None: Flow - Phasic: Augmentation - Normal: Reflux - None. 7. Cephalic: 7.1. Not visualized. 8. Basilic: 8.1. Compressibility - Incompressible: Thrombus - Acute: Flow - Absent (Non compressible form antecubital up to wrist level.) OTHER FINDINGS: Normal venous flow noted in the right internal jugular and right subclavian veins. IMPRESSION: Left: No evidence of DEEP vein thrombosis of the left upper extremity. Superficial phlebitis of the left basilic vein. Findings were reported to nurse Maki, at 2:36 pm.
[2018-06-10 07:24] LABS: BASO # 0.1 K/uL (0.0-0.2); BASO % 1.8 % (0.0-2.0); EOS # 0.1 K/uL (0.0-0.7); EOS % 1.5 % (0.0-4.0); HEMOGLOBIN 10.1 g/dL (12.0-18.0); LYMPH # 1.3 K/uL (1.0-4.3); LYMPH % 19.4 % (20.0-40.0); MEAN CELL VOLUME 91.7 fL (80.0-94.0); MEAN CORPUSCULAR HEMOGLOBIN 30.7 pg (27.0-31.0); MEAN CORPUSCULAR HGB CONC 33.5 g/dL (33.0-37.0); MEAN PLATELET VOLUME 8.1 fL (7.2-11.7); MONO # 0.3 K/uL (0.0-0.8); NEUT % 72.3 % (50.0-75.0); RBC 3.28 Mil/uL (4.40-5.90); WHITE BLOOD COUNT 6.9 K/uL (4.8-10.8)
[2018-06-10 08:09] LABS: ALB/GLOB RATIO 0.7 (1.0-2.1); ALBUMIN 2.8 g/dL (3.5-5.0); CALCIUM 7.8 mg/dl (8.6-10.4)
[2018-06-10] MEDS: (Novolog) Insulin Aspart, Recombinant 100 u/ml 10 ml vial SC SCH ×3 (08:30→16:40)
[2018-06-10] MEDS: (Novolog Mix 70/30) Insulin Aspart/Insulin Aspar 100 units/ml SC SCH ×3 (08:38→16:40)
[2018-06-10] MEDS: Fluticasone Nasal 50 mcg/Spray NAS SCH ×2 (09:00→17:53)
[2018-06-10] MEDS: Saccharomyces Boulardi 250 mg Cap PO SCH ×2 (09:02→17:52)
[2018-06-10] MEDS: Multiple Vitamins Tab PO SCH (09:03)
[2018-06-10] MEDS: Aritificial Tears (15ml) OU SCH ×2 (09:04→17:52)
--- NOTE | 2018-06-10 10:29 | CP.PCM.PN ---
Subjective - Date & Time of Evaluation Date of Evaluation: 06/10/18 Time of Evaluation: 10:23 - Subjective Subjective: PGY-[address] King Patient seen and examined at bedside. No acute events overnight. Patient has no new complaints at this time. R eye irritation is improving. Order for PICC placed for vascular nurse to place, patient consented - f/u. Patient denies chest pain, nausea, vomiting, fevers, chills. Objective - Vital Signs/Intake and Output Vital Signs (last 24 hours): Temp Pulse Resp BP Pulse Ox 97.7 F 89 20 156/80 H 97 06/10/18 07:40 06/10/18 08:56 06/10/18 07:40 06/10/18 09:02 06/10/18 07:40 Intake and Output: 06/10/18 06/10/18 06:59 18:59 Intake Total 940 Balance 940 - Medications Medications: Current Medications Artificial Tears (Artificial Tears) 1 ml OU BID [facility] [place] Last Admin: 06/10/18 09:04 Dose: 1 drop Aspirin (Aspirin Chewable) 81 mg PO DAILY [facility] [place] Last Admin: 06/10/18 09:03 Dose: 81 mg Calcium Acetate (Phoslo) 667 mg PO BIDCC [facility] [place] Last Admin: 06/10/18 09:00 Dose: 667 mg Carvedilol (Coreg) 25 mg PO BID [facility] [place] Last Admin: 06/10/18 09:01 Dose: 25 mg Dextrose (Dextrose 50% Inj) 0 ml IV STAT PRN; Protocol PRN Reason: Hypoglycemia Protocol Last Admin: 06/10/18 06:59 Dose: 50 ml Dextrose (Glutose 15) 0 gm PO ONCE PRN; Protocol PRN Reason: Hypoglycemia Protocol Docusate Sodium (Colace) 100 mg PO DAILY [facility] [place] Last Admin: 06/10/18 09:07 Dose: Not Given Ergocalciferol (Drisdol 50,000 Intl Units Cap) 1 cap PO Q7D [facility] [place] Last Admin: 06/07/18 15:18 Dose: 1 cap Famotidine (Pepcid) 20 mg PO DAILY [facility] [place] Last Admin: 06/10/18 09:02 Dose: 20 mg Fluticasone Propionate (Flonase) 1 spr JAREN BID [facility] [place] Last Admin: 06/10/18 09:00 Dose: 1 spr Folic Acid (Folic Acid) 1 mg PO DAILY [facility] [place] Last Admin: 06/10/18 09:03 Dose: 1 mg Furosemide (Lasix) 40 mg PO DAILY [facility] [place] Last Admin: 06/10/18 09:02 Dose: 40 mg Glucagon (Glucagen Diagnostic Kit) 0 mg IM STAT PRN; Protocol PRN Reason: Hypoglycemia Protocol Heparin Sodium (Porcine) (Heparin) 5,000 units SC Q12 [facility] [place] Last Admin: 06/10/18 09:03 Dose: 5,000 units Hydralazine HCl (Apresoline) 50 mg PO TID [facility] [place] Last Admin: 06/10/18 09:02 Dose: 50 mg Dextrose (Dextrose 5% In Water 1000 Ml) 1,000 mls @ 0 mls/hr IV .Q0M PRN; Protocol PRN Reason: Hypoglycemia Protocol Nafcillin Sodium 2 gm/ Sodium (Chloride) 250 mls @ 250 mls/hr IVPB Q4H [facility] [place]; Protocol Last Admin: 06/10/18 09:54 Dose: 250 mls/hr Insulin Aspart (Novolog) 0 unit SC ACHS [facility] [place]; Protocol Last Admin: 06/10/18 08:30 Dose: 2 units Insulin Aspart (Novolog Mix 70/30 (70/30 Units/Ml)) 6 units SC AC [facility] [place] Last Admin: 06/10/18 08:38 Dose: 6 units Insulin Glargine (Lantus) 20 unit SC HS [facility] [place] Last Admin: 06/09/18 22:15 Dose: 20 units Isosorbide Mononitrate (Imdur Er) 30 mg PO DAILY [facility] [place] Last Admin: 06/10/18 09:02 Dose: 30 mg Loperamide HCl (Imodium) 2 mg PO QID PRN PRN Reason: Diarrhea Last Admin: 06/09/18 13:55 Dose: 2 mg Multivitamins (Hexavitamin) 1 tab PO DAILY [facility] [place] Last Admin: 06/10/18 09:03 Dose: 1 tab Polyethylene Glycol (Miralax) 17 gm PO DAILY PRN PRN Reason: Constipation Rosuvastatin Calcium (Crestor) 5 mg PO HS [facility] [place] Last Admin: 06/09/18 22:10 Dose: 5 mg Saccharomyces Boulardii (Florastor) 250 mg PO BID [facility] [place] Last Admin: 06/10/18 09:02 Dose: 250 mg Sodium Bicarbonate (Sodium Bicarbonate Tab) 1,300 mg PO BID [facility] [place] Last Admin: 06/10/18 09:01 Dose: 1,300 mg Thiamine HCl (Vitamin B1 Tab) 100 mg PO DAILY [facility] [place] Last Admin: 06/10/18 09:03 Dose: 100 mg Tobramycin/Dexamethasone (Tobradex Opht Susp) 0 ml OD Q3 [facility] [place] Last Admin: 06/10/18 09:00 Dose: 1 drop - Labs Labs: 06/10/18 07:13 06/10/18 07:13 APTT 55 SECONDS (21-34) H D 05/28/18 08:32 - Constitutional Appears: Non-toxic, No Acute Distress - Head Exam Head Exam: ATRAUMATIC, NORMAL INSPECTION - Eye Exam Eye Exam: EOMI Additional comments: R eye mildly injected, improving - Respiratory Exam Respiratory Exam: Clear to Ausculation Bilateral, NORMAL BREATHING PATTERN. absent: Rales, Rhonchi, Wheezes - Cardiovascular Exam Cardiovascular Exam: REGULAR RHYTHM, +S1, +S2. absent: Murmur - GI/Abdominal Exam GI & Abdominal Exam: Soft, Normal Bowel Sounds. absent: Tenderness - Extremities Exam Extremities Exam: absent: Pedal Edema, Tenderness - Neurological Exam Neurological Exam: Alert, Awake, CN II-XII Intact, Oriented x3 - Psychiatric Exam Psychiatric exam: Normal Affect, Normal Mood - Skin Skin Exam: Dry, Intact Assessment and Plan - Assessment and Plan (Free Text) Assessment: Patient is a 48 yo male with a history of uncontrolled T2DM and CHF s/p AICD who presented with generalized weakness and falls. Required ICU admission for 1 day due to hypotension- no pressors. Now much clinically improved and downgraded to telemetry unit. Patient's initial blood Cx grew micrococcus species. Subsequent 3 sets grew Staph aureus. INA did not demonstrate vegetations. Negative Certec scan. Bone scan shows possible R foot cellulitis. Repeat Blood Cx negative >48 hrs. R eye conjunctivitis persists- Abx drops finished, continuing Tobradex. PICC to be placed today. Will need 6-8 weeks IV abx. Plan: Sepsis with Staph aureus bacteremia- suspect source is cellulits due to R foot amputation site, r/o endocarditis, osteomyelitis - Most recent fever 05/27 100.7 - Leukocytosis and bandemia resolved - Procal 27.53->8.3->0.24 - Lactate 1.8 - ESR 72 - CXR: no active disease - TTE: EF 26%, no vegetations - INA: moderately reduced EF, no vegetations or thrombi - Blood Cx (05/27): Micrococcus species x2 - Repeat Blood Cx (05/28, 05/30, 06/03): Staph aureus x5 - Repeat Blood Cx 06/02 no growth - Repeat Blood Cx 06/06 no growth >48 hrs - Urine, stool Cx no growth - Certec scan negative - R foot XR: no evidence of osteomyelitis - LE arterial and venous studies: no significant abnormalities per vasc surgery - 3 view bone scans of b/l LEs: no evidence of osteomyelitis, possible R foot cellulitis - Punch biopsies from R foot- hyperkeratosis - Nafcillin 2 g IV Q4H- started 06/02; will need 6-8 weeks total IV Abx. - Florastor 250 mg PO BID - ICU consulted - Surgery consulted (James)- no intervention at this time - Podiatry consulted (Ryder)- no intervention at this time - ID consulted (Charly)- rec 6-8 wks IV abx - IR consulted (Jero)- PICC to be placed today - f/u - PT/OT- rec home - Labs switched to Q2 days Acute LUE Edema - LUE duplex US - No evidence of DVT of the left upper extremity. Superficial phlebitis of the left basilic vein. - Apply warm compress Renal insufficiency, improving- suspect ATN due to sepsis and/or CHF in addition to CKD from DM and HTN - BUN 37->91-> -> 34 - Cr 1.6->5.1->2.5 - Avoid ACEI/ARB and other nephrotoxic drugs - Renally dose meds - Maintain normotension - No IVF due to CHF - Nephrology consulted (Junior/Vlad)- no need for dialysis at this time but will continue to follow, continue Lasix R eye conjunctivitis, improving - Artificial tears BID - Bacitracin/Neomycin/polymyxin OD Q3H while awake x7 days- completed - Tobradex OD Q3H- started 06/07 - Ophthalmology consulted (Doron) Systolic heart failure (HFrEF)- s/p AICD - BNP 11,300 - Echo: EF 26% - Strict I's & O's - Daily weights - Fluid restriction <1200 mL/day - ASA 81 mg PO daily - Coreg 25 mg PO BID - Lasix 40 mg PO daily - Hydralazine 25 mg PO TID - Isosorbide nitrate 30 mg PO daily - Cardiology consulted (Hupart) Type 2 diabetes mellitus - A1c 7.8 - Hypoglycemia protocol - Accuchecks ACHS with ISS - Lantus 20 units SC QHS - Aspart 6 u SC AC Transaminitis, resolved - Monitor CMP - Restart statin Secondary hyperparathyroidism- 2/2 kidney disease - Elevated PTH (153) - Low Ca (7) - Elevated Ph (5.2) - Low Vit D (<12.5) - Phoslo 667 mg PO BID - Ergocalciferol 50,000 QWK Dyslipidemia - Choles 112, LDL<30, HDL 12, TG 320-765 (suspect 2nd value is not fasting) - Crestor 5 mg PO QHS- restart / Elevated D-dimer (1468)- suspect 2/2 kidney disease - V/Q scan: low probability of PE - Cannot get CTA due to kidney function Elevated troponin, improved- h/o nonischemic cardiomyopathy (cath 10/19), suspect 2/2 kidney disease, doubt NSTEMI - Trop: 0.17->0.233->0.222 - EKG: no ST elevations, ventricular-paced rhythm - Cardiology consulted (Hupart)- no heparin or Plavix Hyponatremia, resolved - Avoid correction >6-8 mEq/24 hrs - TSH low (0.31), T4 wnl (1.5) - Serum osm 316 - Urine osm 281 - Urine Na 27, K 6.4 - AM cortisol elevated 29.7 - Sodium bicarb 1300 mg PO TID Thrombocytopenia, resolved- suspect 2/2 kidney disease - Monitor CBC - Hepatitis negative - HIV negative Constipation, resolved - Miralax 17 g PO daily PRN - Colace 100 mg PO daily - FOBT negative Ppx: VTE: heparin 5000 u SC Q12H GI: Pepcid 20 mg PO daily Code status: full code Case was discussed with attending, Dr. King. Jeremias Rock, PGY-1
--- NOTE | 2018-06-10 14:07 | CP.PCM.PN ---
Subjective - Date & Time of Evaluation Date of Evaluation: 06/10/18 Time of Evaluation: 14:07 - Subjective Subjective: Nephrology Consultation Note Assessment: Stable non-oliguric Acute Kidney Injury (N17.9) likely ATN due to sepsis (? 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 anticipate gradual improvement Hypertension control with meds as ordered. Maintain hemodynamics stable. Avoid hypotension. Patient not on ACEI/ARB due to recent EL. coreg increased 25 mg bid meds for CHF being optimized by cardiology Monitor Input/Output, daily weights and renal function with basic metabolic panel continue with lasix c/w sodium bicarb 1300 mg bid avoid correction in serum Na >6-8 meq/24 hrs on weekly Vit D Dose meds/antibiotics for reduced GFR. Avoid fleets enema/magnesium based laxatives. Avoid nephrotoxins/NSAIDs/ iodinated contrast (unless needed emergently) Glycemic control Further work up for as per primary team Thanks for allowing me to participate in care of your patient. Will follow patient with you. Please call if any Qs. had d/w team Dr Max Chu Office: [phone] Subjective: Noted events overnight. Patients feels better Denies chest pain, palpitation, shortness of breath, leg swelling. All other negative. INA neg for IE Physical Examination: General Appearance: Comfortable, in no acute respiratory distress, co-operative . Vitals reviewed and noted as below Head; Atraumatic, normocephalic ENT: no ulcers no thrush. Tongue is midline. Oropharynx: no rash or ulcers. EYES: Pupils are equal, round and reactive to light accommodation. Eye muscles and extraocular movement intact. Sclera is anicteric. RT eye redness Neck; supple no lymphadenopathy, no thyromegaly or bruit Lungs: Normal respiratory rate/effort. Breath sounds bilateral improved at bases with crackles Heart: Normal rate. s1s2 normal. No rub or gallop. Extremities: no edema. No varicose veins. Rt foot toe amputations in past with superificial scab Neurological: Patient is alert, awake and oriented to person, place and time. No focal deficit. Strength bilateral appropriate and equal Skin: Warm and dry. Normal turgor. No rash. Palpitation: Normal elasticity for age Abdomen: Abdomen is soft. Bowel sounds +. There is no abdominal tenderness, no guarding/rigidity no organomegaly Psych: normal insight and normal affect/mood MSK: no joint tenderness or swelling. Digits and nails normal, no deformity : kidney or bladder not palpable. Labs/imaging reviewed. Past medical history, past surgical history, family history, social history, allergy reviewed and noted as below Family hx: no hx of CKD. Rest non-contributory HIV/Hep B and C neg UA 2+ blood and neg prot Objective - Vital Signs/Intake and Output Vital Signs (last 24 hours): Temp Pulse Resp BP Pulse Ox 97.7 F 66 20 149/78 97 06/10/18 07:40 06/10/18 13:14 06/10/18 07:40 06/10/18 13:14 06/10/18 07:40 Intake and Output: 06/10/18 06/10/18 06:59 18:59 Intake Total 940 Balance 940 - Medications Medications: Current Medications Artificial Tears (Artificial Tears) 1 ml OU BID [facility] Last Admin: 06/10/18 09:04 Dose: 1 drop Aspirin (Aspirin Chewable) 81 mg PO DAILY [facility] Last Admin: 06/10/18 09:03 Dose: 81 mg Calcium Acetate (Phoslo) 667 mg PO BIDCC [facility] Last Admin: 06/10/18 09:00 Dose: 667 mg Carvedilol (Coreg) 25 mg PO BID [facility] Last Admin: 06/10/18 09:01 Dose: 25 mg Dextrose (Dextrose 50% Inj) 0 ml IV STAT PRN; Protocol PRN Reason: Hypoglycemia Protocol Last Admin: 06/10/18 06:59 Dose: 50 ml Dextrose (Glutose 15) 0 gm PO ONCE PRN; Protocol PRN Reason: Hypoglycemia Protocol Docusate Sodium (Colace) 100 mg PO DAILY [facility] Last Admin: 06/10/18 09:07 Dose: Not Given Ergocalciferol (Drisdol 50,000 Intl Units Cap) 1 cap PO Q7D [facility] Last Admin: 06/07/18 15:18 Dose: 1 cap Famotidine (Pepcid) 20 mg PO DAILY [facility] Last Admin: 06/10/18 09:02 Dose: 20 mg Fluticasone Propionate (Flonase) 1 spr JAREN BID [facility] Last Admin: 06/10/18 09:00 Dose: 1 spr Folic Acid (Folic Acid) 1 mg PO DAILY [facility] Last Admin: 06/10/18 09:03 Dose: 1 mg Furosemide (Lasix) 40 mg PO DAILY [facility] Last Admin: 06/10/18 09:02 Dose: 40 mg Glucagon (Glucagen Diagnostic Kit) 0 mg IM STAT PRN; Protocol PRN Reason: Hypoglycemia Protocol Heparin Sodium (Porcine) (Heparin) 5,000 units SC Q12 [facility] Last Admin: 06/10/18 09:03 Dose: 5,000 units Hydralazine HCl (Apresoline) 50 mg PO TID [facility] Last Admin: 06/10/18 13:15 Dose: 50 mg Dextrose (Dextrose 5% In Water 1000 Ml) 1,000 mls @ 0 mls/hr IV .Q0M PRN; Protocol PRN Reason: Hypoglycemia Protocol Nafcillin Sodium 2 gm/ Sodium (Chloride) 250 mls @ 250 mls/hr IVPB Q4H [facility]; Protocol Last Admin: 06/10/18 13:15 Dose: 250 mls/hr Insulin Aspart (Novolog) 0 unit SC ACHS [facility]; Protocol Last Admin: 06/10/18 12:26 Dose: 1 units Insulin Aspart (Novolog Mix 70/30 (70/30 Units/Ml)) 6 units SC AC [facility] Last Admin: 06/10/18 12:25 Dose: 6 units Insulin Glargine (Lantus) 20 unit SC HS [facility] Last Admin: 06/09/18 22:15 Dose: 20 units Isosorbide Mononitrate (Imdur Er) 30 mg PO DAILY [facility] Last Admin: 06/10/18 09:02 Dose: 30 mg Loperamide HCl (Imodium) 2 mg PO QID PRN PRN Reason: Diarrhea Last Admin: 06/09/18 13:55 Dose: 2 mg Multivitamins (Hexavitamin) 1 tab PO DAILY [facility] Last Admin: 06/10/18 09:03 Dose: 1 tab Polyethylene Glycol (Miralax) 17 gm PO DAILY PRN PRN Reason: Constipation Rosuvastatin Calcium (Crestor) 5 mg PO HS [facility] Last Admin: 06/09/18 22:10 Dose: 5 mg Saccharomyces Boulardii (Florastor) 250 mg PO BID [facility] Last Admin: 06/10/18 09:02 Dose: 250 mg Sodium Bicarbonate (Sodium Bicarbonate Tab) 1,300 mg PO BID [facility] Last Admin: 06/10/18 09:01 Dose: 1,300 mg Thiamine HCl (Vitamin B1 Tab) 100 mg PO DAILY [facility] Last Admin: 06/10/18 09:03 Dose: 100 mg Tobramycin/Dexamethasone (Tobradex Opht Susp) 0 ml OD Q3 [facility] Last Admin: 06/10/18 13:15 Dose: 1 drop - Labs Labs: 06/10/18 07:13 06/10/18 07:13 APTT 55 SECONDS (21-34) H D 05/28/18 08:32
--- NOTE | 2018-06-10 15:02 | RAD ---
Date of service: 06/10/2018 HISTORY: Verify right PICC COMPARISON: Comparison chest 06/01/2018. FINDINGS: In situ right-sided PICC line with tip in the SVC LUNGS: Suspect mild bibasilar atelectasis and/or scarring left greater than right.. PLEURA: No significant pleural effusion identified, no pneumothorax apparent. CARDIOVASCULAR: No discernible aortic atherosclerotic calcification present. Heart remains enlarged. No change multi lead pacemaker/defibrillator. No pulmonary vascular congestion. OSSEOUS STRUCTURES: No significant abnormalities. VISUALIZED UPPER ABDOMEN: Normal. OTHER FINDINGS: None. IMPRESSION: In situ PICC line as described. Mild bibasilar atelectasis and/or scarring left greater than right. Cardiomegaly.
[2018-06-10] MEDS: (Lantus) Insulin Glargine, Recombinant SC SCH (21:35)
[2018-06-11] MEDS: Tobramycin/Dexamethasone (Tobradex) Opth Sol (2.5 ml) OD SCH ×8 (01:00→22:12)
[2018-06-11 07:56] LABS: ALB/GLOB RATIO 0.7 (1.0-2.1); ALBUMIN 2.8 g/dL (3.5-5.0)
[2018-06-11] MEDS: (Novolog Mix 70/30) Insulin Aspart/Insulin Aspar 100 units/ml SC SCH ×3 (08:31→18:08)
[2018-06-11] MEDS: (Novolog) Insulin Aspart, Recombinant 100 u/ml 10 ml vial SC SCH ×4 (08:31→21:34)
[2018-06-11] MEDS: Fluticasone Nasal 50 mcg/Spray NAS SCH ×2 (10:40→18:09)
[2018-06-11] MEDS: Multiple Vitamins Tab PO SCH (10:40)
[2018-06-11] MEDS: Aritificial Tears (15ml) OU SCH ×2 (10:40→18:05)
[2018-06-11] MEDS: Saccharomyces Boulardi 250 mg Cap PO SCH ×2 (10:40→18:03)
--- NOTE | 2018-06-11 13:27 | CP.PCM.PN ---
Subjective - Date & Time of Evaluation Date of Evaluation: 06/11/18 Time of Evaluation: 13:26 - Subjective Subjective: Nephrology Consultation Note Assessment: Stable non-oliguric Acute Kidney Injury (N17.9) likely ATN due to sepsis (? 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 cr slightly improved Hypertension control with meds as ordered. Maintain hemodynamics stable. Avoid hypotension. Patient not on ACEI/ARB due to recent EL. f/u cardiology Monitor Input/Output, daily weights and renal function with basic metabolic panel continue with lasix c/w sodium bicarb 1300 mg bid na stable on weekly Vit D S: seen and examined no complaints Physical Examination: General Appearance: Comfortable, in no acute respiratory distress, co-operative . Vitals reviewed and noted as below Head; Atraumatic, normocephalic ENT: no ulcers no thrush. Tongue is midline. Oropharynx: no rash or ulcers. EYES: Pupils are equal, round and reactive to light accommodation. Eye muscles and extraocular movement intact. Sclera is anicteric Neck; supple no lymphadenopathy, no thyromegaly or bruit Lungs: Normal respiratory rate/effort. Breath sounds bilateral improved at bases with crackles Heart: Normal rate. s1s2 normal. No rub or gallop. Extremities: no edema. No varicose veins. Rt foot toe amputations Neurological: Patient is alert, awake and oriented to person, place and time. No focal deficit. Strength bilateral appropriate and equal Skin: Warm and dry. Normal turgor. No rash. Palpitation: Normal elasticity for age Abdomen: Abdomen is soft. Bowel sounds +. There is no abdominal tenderness, no guarding/rigidity no organomegaly Psych: normal insight and normal affect/mood MSK: no joint tenderness or swelling. Digits and nails normal, no deformity : kidney or bladder not palpable. Labs/imaging reviewed. Past medical history, past surgical history, family history, social history, allergy reviewed and noted as below Family hx: no hx of CKD. Rest non-contributory HIV/Hep B and C neg UA 2+ blood and neg prot Objective - Vital Signs/Intake and Output Vital Signs (last 24 hours): Temp Pulse Resp BP Pulse Ox 98.0 F 72 20 174/84 H 96 06/11/18 07:00 06/11/18 07:00 06/11/18 07:00 06/11/18 10:41 06/11/18 07:00 - Medications Medications: Current Medications Artificial Tears (Artificial Tears) 1 ml OU BID [facility] Last Admin: 06/11/18 10:40 Dose: 1 drop Aspirin (Aspirin Chewable) 81 mg PO DAILY [facility] Last Admin: 06/11/18 10:41 Dose: 81 mg Calcium Acetate (Phoslo) 667 mg PO BIDCC [facility] Last Admin: 06/11/18 08:39 Dose: 667 mg Carvedilol (Coreg) 25 mg PO BID [facility] Last Admin: 06/11/18 10:41 Dose: 25 mg Dextrose (Dextrose 50% Inj) 0 ml IV STAT PRN; Protocol PRN Reason: Hypoglycemia Protocol Last Admin: 06/10/18 06:59 Dose: 50 ml Dextrose (Glutose 15) 0 gm PO ONCE PRN; Protocol PRN Reason: Hypoglycemia Protocol Docusate Sodium (Colace) 100 mg PO DAILY [facility] Last Admin: 06/11/18 10:26 Dose: Not Given Ergocalciferol (Drisdol 50,000 Intl Units Cap) 1 cap PO Q7D [facility] Last Admin: 06/07/18 15:18 Dose: 1 cap Famotidine (Pepcid) 20 mg PO DAILY [facility] Last Admin: 06/11/18 10:40 Dose: 20 mg Fluticasone Propionate (Flonase) 1 spr JAREN BID [facility] Last Admin: 06/11/18 10:40 Dose: 1 spr Folic Acid (Folic Acid) 1 mg PO DAILY [facility] Last Admin: 06/11/18 10:41 Dose: 1 mg Furosemide (Lasix) 40 mg PO DAILY [facility] Last Admin: 06/11/18 10:41 Dose: 40 mg Glucagon (Glucagen Diagnostic Kit) 0 mg IM STAT PRN; Protocol PRN Reason: Hypoglycemia Protocol Heparin Sodium (Porcine) (Heparin) 5,000 units SC Q12 [facility] Last Admin: 06/11/18 10:41 Dose: 5,000 units Hydralazine HCl (Apresoline) 50 mg PO TID [facility] Last Admin: 06/11/18 10:53 Dose: 50 mg Dextrose (Dextrose 5% In Water 1000 Ml) 1,000 mls @ 0 mls/hr IV .Q0M PRN; Protocol PRN Reason: Hypoglycemia Protocol Nafcillin Sodium 2 gm/ Sodium (Chloride) 250 mls @ 250 mls/hr IVPB Q4H [facility]; Protocol Last Admin: 06/11/18 10:42 Dose: 250 mls/hr Insulin Aspart (Novolog) 0 unit SC ACHS [facility]; Protocol Last Admin: 06/11/18 13:04 Dose: 2 units Insulin Aspart (Novolog Mix 70/30 (70/30 Units/Ml)) 6 units SC AC [facility] Last Admin: 06/11/18 13:05 Dose: 6 units Insulin Glargine (Lantus) 20 unit SC HS [facility] Last Admin: 06/10/18 21:35 Dose: 20 units Isosorbide Mononitrate (Imdur Er) 30 mg PO DAILY [facility] Last Admin: 06/11/18 10:41 Dose: 30 mg Loperamide HCl (Imodium) 2 mg PO QID PRN PRN Reason: Diarrhea Last Admin: 06/09/18 13:55 Dose: 2 mg Multivitamins (Hexavitamin) 1 tab PO DAILY [facility] Last Admin: 06/11/18 10:40 Dose: 1 tab Polyethylene Glycol (Miralax) 17 gm PO DAILY PRN PRN Reason: Constipation Rosuvastatin Calcium (Crestor) 5 mg PO HS [facility] Last Admin: 06/09/18 22:10 Dose: 5 mg Saccharomyces Boulardii (Florastor) 250 mg PO BID [facility] Last Admin: 06/11/18 10:40 Dose: 250 mg Sodium Bicarbonate (Sodium Bicarbonate Tab) 1,300 mg PO BID [facility] Last Admin: 06/11/18 10:43 Dose: 1,300 mg Thiamine HCl (Vitamin B1 Tab) 100 mg PO DAILY [facility] Last Admin: 06/11/18 10:40 Dose: 100 mg Tobramycin/Dexamethasone (Tobradex Opht Susp) 0 ml OD Q3 [facility] Last Admin: 06/11/18 13:05 Dose: 1 drop - Labs Labs: 06/10/18 07:13 06/11/18 07:20 APTT 55 SECONDS (21-34) H D 05/28/18 08:32
--- NOTE | 2018-06-11 19:37 | CP.PCM.PN ---
Subjective - Date & Time of Evaluation Date of Evaluation: 06/11/18 Time of Evaluation: 13:35 - Subjective Subjective: Medical Attending Note: Patient seen and examined. patient denies headache, denies chest pain, denies palpitations, denies shortness of breathe, denies abdominal pain, denies constipation, he reports he is having diarrhea (water). Reports eye watery improving. Objective - Vital Signs/Intake and Output Vital Signs (last 24 hours): Temp Pulse Resp BP Pulse Ox 97.6 F 77 20 161/77 H 97 06/11/18 15:00 06/11/18 15:00 06/11/18 15:00 06/11/18 18:03 06/11/18 15:00 - Medications Medications: Current Medications Artificial Tears (Artificial Tears) 1 ml OU BID [facility] Last Admin: 06/11/18 18:05 Dose: 1 drop Aspirin (Aspirin Chewable) 81 mg PO DAILY [facility] Last Admin: 06/11/18 10:41 Dose: 81 mg Calcium Acetate (Phoslo) 667 mg PO BIDCC [facility] Last Admin: 06/11/18 18:00 Dose: 667 mg Carvedilol (Coreg) 25 mg PO BID [facility] Last Admin: 06/11/18 18:03 Dose: 25 mg Dextrose (Dextrose 50% Inj) 0 ml IV STAT PRN; Protocol PRN Reason: Hypoglycemia Protocol Last Admin: 06/10/18 06:59 Dose: 50 ml Dextrose (Glutose 15) 0 gm PO ONCE PRN; Protocol PRN Reason: Hypoglycemia Protocol Docusate Sodium (Colace) 100 mg PO DAILY [facility] Last Admin: 06/11/18 10:26 Dose: Not Given Ergocalciferol (Drisdol 50,000 Intl Units Cap) 1 cap PO Q7D [facility] Last Admin: 06/07/18 15:18 Dose: 1 cap Famotidine (Pepcid) 20 mg PO DAILY [facility] Last Admin: 06/11/18 10:40 Dose: 20 mg Fluticasone Propionate (Flonase) 1 spr JAREN BID [facility] Last Admin: 06/11/18 18:09 Dose: 1 spr Folic Acid (Folic Acid) 1 mg PO DAILY [facility] Last Admin: 06/11/18 10:41 Dose: 1 mg Furosemide (Lasix) 40 mg PO DAILY [facility] Last Admin: 06/11/18 10:41 Dose: 40 mg Glucagon (Glucagen Diagnostic Kit) 0 mg IM STAT PRN; Protocol PRN Reason: Hypoglycemia Protocol Heparin Sodium (Porcine) (Heparin) 5,000 units SC Q12 [facility] Last Admin: 06/11/18 10:41 Dose: 5,000 units Hydralazine HCl (Apresoline) 50 mg PO TID [facility] Last Admin: 06/11/18 18:03 Dose: 50 mg Dextrose (Dextrose 5% In Water 1000 Ml) 1,000 mls @ 0 mls/hr IV .Q0M PRN; Protocol PRN Reason: Hypoglycemia Protocol Nafcillin Sodium 2 gm/ Sodium (Chloride) 250 mls @ 250 mls/hr IVPB Q4H [facility]; Protocol Last Admin: 06/11/18 18:04 Dose: 250 mls/hr Insulin Aspart (Novolog) 0 unit SC ACHS [facility]; Protocol Last Admin: 06/11/18 18:08 Dose: 1 units Insulin Aspart (Novolog Mix 70/30 (70/30 Units/Ml)) 6 units SC AC [facility] Last Admin: 06/11/18 18:08 Dose: 6 units Insulin Glargine (Lantus) 20 unit SC HS [facility] Last Admin: 06/10/18 21:35 Dose: 20 units Isosorbide Mononitrate (Imdur Er) 30 mg PO DAILY [facility] Last Admin: 06/11/18 10:41 Dose: 30 mg Loperamide HCl (Imodium) 2 mg PO QID PRN PRN Reason: Diarrhea Last Admin: 06/11/18 14:13 Dose: 2 mg Multivitamins (Hexavitamin) 1 tab PO DAILY [facility] Last Admin: 06/11/18 10:40 Dose: 1 tab Rosuvastatin Calcium (Crestor) 5 mg PO HS [facility] Last Admin: 06/09/18 22:10 Dose: 5 mg Saccharomyces Boulardii (Florastor) 250 mg PO BID [facility] Last Admin: 06/11/18 18:03 Dose: 250 mg Sodium Bicarbonate (Sodium Bicarbonate Tab) 1,300 mg PO BID [facility] Last Admin: 06/11/18 18:04 Dose: 1,300 mg Thiamine HCl (Vitamin B1 Tab) 100 mg PO DAILY [facility] Last Admin: 06/11/18 10:40 Dose: 100 mg Tobramycin/Dexamethasone (Tobradex Opht Susp) 0 ml OD Q3 [facility] Last Admin: 06/11/18 18:06 Dose: 1 drop - Labs Labs: 06/10/18 07:13 06/11/18 07:20 APTT 55 SECONDS (21-34) H D 05/28/18 08:32 - Constitutional Appears: Non-toxic, No Acute Distress - Head Exam Head Exam: NORMAL INSPECTION - Eye Exam Additional comments: right eye--Red sclera has improved - ENT Exam ENT Exam: Mucous Membranes Moist - Respiratory Exam Respiratory Exam: Clear to Ausculation Bilateral, NORMAL BREATHING PATTERN. absent: Rales, Rhonchi, Wheezes - Cardiovascular Exam Cardiovascular Exam: REGULAR RHYTHM, +S1, +S2 Additional comments: AICD (left side of chest) - GI/Abdominal Exam GI & Abdominal Exam: Soft, Normal Bowel Sounds. absent: Distended, Firm, Guarding, Rigid, Tenderness, Rebound - Extremities Exam Additional comments: right upper extremity: picc line (clean/dry/intact) scabbing over b/l lower extremities; less erythema (+) healing ulcers to bilateral shins (+) scar tissue to the right foot at site of amputation VASC: DP/PT pulses faintly palpable, CFT <3 secs to all the digits, Temp gradient: warm to cool from proximal to distal, no pitting or non-pitting edema or erythema noted DERM: Hyperpigmented scaling plaque noted to dorsolateral forefoot at site of prior digital amputations 3-5, absent irregular margins. Hyperkeratosis is stably adhered to dermal base, no drainage, no erythema, no tunneling, no un dermining, no probe to bone, no open lesions, no clinical signs of infection NEURO: protective sensation diminished to the foot ORTHO: no pain on palpation of the lesion - Neurological Exam Neurological Exam: Alert, Awake, Oriented x3 - Psychiatric Exam Psychiatric exam: Normal Affect, Normal Mood - Skin Skin Exam: Dry, Normal Color, Warm Assessment and Plan (1) Sepsis Status: Acute (2) EL (acute kidney injury) Status: Acute (3) Diabetic ulcer of left foot Status: Acute (4) Hypertension Status: Chronic (5) Systolic heart failure, chronic Status: Chronic (6) Uncontrolled diabetes mellitus Status: Chronic (7) Non-ischemic cardiomyopathy Status: Acute (8) Conjunctivitis Status: Acute (9) Osteomyelitis Status: Acute (10) Bacteremia Status: Acute (11) Hypertension Status: Acute (12) Prophylactic measure Status: Acute Attending/Attestation - Attestation I have personally seen and examined this patient.: Yes I have fully participated in the care of the patient.: Yes I have reviewed all pertinent clinical information, including history, physical exam and plan: Yes Notes (Text): Sepsis with Staph aureus bacteremia- suspect source is cellulitis due to R foot amputation site, r/o endocarditis, osteomyelitis - Most recent fever 05/27 100.7 - Leukocytosis and bandemia resolved - Procal 27.53->8.3->0.24 - Lactate 1.8 - ESR 72 - CXR: no active disease - TTE: EF 26%, no vegetations - INA: moderately reduced EF, no vegetations or thrombi - Blood Cx (05/27): Micrococcus species x2 - Repeat Blood Cx (05/28, 05/30, 06/03): Staph aureus x5 - Repeat Blood Cx 06/02 no growth - Repeat Blood Cx 06/06 no growth * 6 weeks from 06/06/18-->earliest is Jul 18 (6 week prabhu) to complete IV abx - Urine, stool Cx no growth - Certec scan negative - R foot XR: no evidence of osteomyelitis - LE arterial and venous studies: no significant abnormalities per [facility] surgery - 3 view bone scans of b/l LEs: no evidence of osteomyelitis, possible R foot cellulitis - Punch biopsies from R foot- hyperkeratosis - Nafcillin 2 g IV Q4H- started 06/02/18 - Florastor 250 mg PO BID - ICU consulted on admission; transferred out. - Surgery consulted (James)- no intervention at this time - Podiatry consulted (Ryder)- no intervention at this time - ID consulted (Charly)- rec 6-8 wks IV abx - IR consulted (Jero)- PICC - PT/OT- rec home s/p PICC placement 06/10/18 Renal insufficiency, improving- suspect ATN due to sepsis and/or CHF in addition to CKD from DM and HTN - Avoid ACEI/ARB and other nephrotoxic drugs - Renally dose meds - Maintain normotension - No IVF due to CHF - Nephrology consulted (Junior/Vlad)- no need for dialysis at this time but will continue to follow, continue Lasix R eye conjunctivitis, improving - Artificial tears BID - Bacitracin/Neomycin/polymyxin OD Q3H while awake x7 days- completed - Tobradex OD Q3H- started 06/07 - Ophthalmology consulted (Doron) Systolic heart failure (HFrEF)- s/p AICD - BNP 11,300 - Echo: EF 26% - Strict I's & O's - Daily weights - Fluid restriction <1200 mL/day - ASA 81 mg PO daily - Coreg 25 mg PO BID - Lasix 40 mg PO daily - Hydralazine 100 mg PO TID - Isosorbide nitrate 30 mg PO daily - Cardiology consulted (Hupart) Type 2 diabetes mellitus - A1c 7.8 - Hypoglycemia protocol - Accuchecks ACHS with ISS - Lantus 20 units SC QHS - Aspart 6 u SC AC Transaminitis, resolved - Monitor CMP - Restart statin Secondary hyperparathyroidism- 2/2 kidney disease - Elevated PTH (153) - Low Ca (7) - Elevated Ph (5.2) - Low Vit D (<12.5) - Phoslo 667 mg PO BID - Ergocalciferol 50,000 QWK Dyslipidemia - Choles 112, LDL<30, HDL 12, TG 320-765 (suspect 2nd value is not fasting) - Crestor 5 mg PO QHS- restart 06/08 Elevated D-dimer (1468)- suspect 2/2 kidney disease - V/Q scan: low probability of PE - Cannot get CTA due to kidney function Elevated troponin, improved- h/o nonischemic cardiomyopathy (cath 10/19), suspect 2/2 kidney disease, doubt NSTEMI - Trop: 0.17->0.233->0.222 - EKG: no ST elevations, ventricular-paced rhythm - Cardiology consulted (Hupart)- no heparin or Plavix Hyponatremia, resolved - Avoid correction >6-8 mEq/24 hrs - TSH low (0.31), T4 wnl (1.5) - Serum osm 316 - Urine osm 281 - Urine Na 27, K 6.4 - AM cortisol elevated 29.7 - Sodium bicarb 1300 mg PO TID Thrombocytopenia, resolved- suspect 2/2 kidney disease - Monitor CBC - Hepatitis negative - HIV negative Constipation, resolved - Miralax 17 g PO daily PRN - Colace 100 mg PO daily - FOBT negative Ppx: VTE: heparin 5000 u SC Q12H GI: Pepcid 20 mg PO daily Code status: full code Disposition: patient complete 6-8 weeks of IV abx to cover for infection; first available date to complete is Jul 18 at the 6th week prabhu. patient's blood pressure uncontrolled; increased hydralazine today.
[2018-06-11] MEDS: (Lantus) Insulin Glargine, Recombinant SC SCH (21:36)
[2018-06-12] MEDS: Tobramycin/Dexamethasone (Tobradex) Opth Sol (2.5 ml) OD SCH ×8 (01:00→21:42)
--- NOTE | 2018-06-12 03:04 | CP.PCM.PN ---
Subjective - Date & Time of Evaluation Date of Evaluation: 06/12/18 Time of Evaluation: 03:01 - Subjective Subjective: PGY1 medicine progress note Patient was seen and examined at bedside. Pt is resting comfortably. He reports 1 episode of watery, nonbloody, nonpainful diarrhea per day for the past 2 days. He states that his right eye tearing has decreased, but is still there. He denies fever, chills, chest pain, sob, abdominal pain, n/v, hematochezia, melena, weakness, dizziness, visual changes, numbness or tingling. Objective - Vital Signs/Intake and Output Vital Signs (last 24 hours): Temp Pulse Resp BP Pulse Ox 97.9 F 79 20 142/74 97 06/11/18 23:40 06/11/18 23:40 06/11/18 23:40 06/11/18 23:40 06/11/18 23:40 - Medications Medications: Current Medications Artificial Tears (Artificial Tears) 1 ml OU BID [facility] Last Admin: 06/11/18 18:05 Dose: 1 drop Aspirin (Aspirin Chewable) 81 mg PO DAILY [facility] Last Admin: 06/11/18 10:41 Dose: 81 mg Calcium Acetate (Phoslo) 667 mg PO BIDCC [facility] Last Admin: 06/11/18 18:00 Dose: 667 mg Carvedilol (Coreg) 25 mg PO BID [facility] Last Admin: 06/11/18 18:03 Dose: 25 mg Dextrose (Dextrose 50% Inj) 0 ml IV STAT PRN; Protocol PRN Reason: Hypoglycemia Protocol Last Admin: 06/10/18 06:59 Dose: 50 ml Dextrose (Glutose 15) 0 gm PO ONCE PRN; Protocol PRN Reason: Hypoglycemia Protocol Docusate Sodium (Colace) 100 mg PO DAILY [facility] Last Admin: 06/11/18 10:26 Dose: Not Given Ergocalciferol (Drisdol 50,000 Intl Units Cap) 1 cap PO Q7D [facility] Last Admin: 06/07/18 15:18 Dose: 1 cap Famotidine (Pepcid) 20 mg PO DAILY [facility] Last Admin: 06/11/18 10:40 Dose: 20 mg Fluticasone Propionate (Flonase) 1 spr JAREN BID [facility] Last Admin: 06/11/18 18:09 Dose: 1 spr Folic Acid (Folic Acid) 1 mg PO DAILY [facility] Last Admin: 06/11/18 10:41 Dose: 1 mg Furosemide (Lasix) 40 mg PO DAILY [facility] Last Admin: 06/11/18 10:41 Dose: 40 mg Glucagon (Glucagen Diagnostic Kit) 0 mg IM STAT PRN; Protocol PRN Reason: Hypoglycemia Protocol Heparin Sodium (Porcine) (Heparin) 5,000 units SC Q12 [facility] Last Admin: 06/11/18 22:11 Dose: 5,000 units Hydralazine HCl (Apresoline) 50 mg PO TID [facility] Last Admin: 06/11/18 18:03 Dose: 50 mg Dextrose (Dextrose 5% In Water 1000 Ml) 1,000 mls @ 0 mls/hr IV .Q0M PRN; Protocol PRN Reason: Hypoglycemia Protocol Nafcillin Sodium 2 gm/ Sodium (Chloride) 250 mls @ 250 mls/hr IVPB Q4H [facility]; Protocol Last Admin: 06/11/18 22:10 Dose: 250 mls/hr Insulin Aspart (Novolog) 0 unit SC ACHS [facility]; Protocol Last Admin: 06/11/18 21:34 Dose: Not Given Insulin Aspart (Novolog Mix 70/30 (70/30 Units/Ml)) 6 units SC AC [facility] Last Admin: 06/11/18 18:08 Dose: 6 units Insulin Glargine (Lantus) 20 unit SC HS [facility] Last Admin: 06/11/18 21:36 Dose: Not Given Isosorbide Mononitrate (Imdur Er) 30 mg PO DAILY [facility] Last Admin: 06/11/18 10:41 Dose: 30 mg Loperamide HCl (Imodium) 2 mg PO QID PRN PRN Reason: Diarrhea Last Admin: 06/11/18 14:13 Dose: 2 mg Multivitamins (Hexavitamin) 1 tab PO DAILY [facility] Last Admin: 06/11/18 10:40 Dose: 1 tab Rosuvastatin Calcium (Crestor) 5 mg PO HS [facility] Last Admin: 06/11/18 22:11 Dose: 5 mg Saccharomyces Boulardii (Florastor) 250 mg PO BID [facility] Last Admin: 06/11/18 18:03 Dose: 250 mg Sodium Bicarbonate (Sodium Bicarbonate Tab) 1,300 mg PO BID [facility] Last Admin: 06/11/18 18:04 Dose: 1,300 mg Thiamine HCl (Vitamin B1 Tab) 100 mg PO DAILY [facility] Last Admin: 06/11/18 10:40 Dose: 100 mg Tobramycin/Dexamethasone (Tobradex Opht Susp) 0 ml OD Q3 [facility] Last Admin: 06/11/18 22:12 Dose: 1 drop - Labs Labs: 06/10/18 07:13 06/11/18 07:20 APTT 55 SECONDS (21-34) H D 05/28/18 08:32 - Constitutional Appears: Non-toxic, No Acute Distress - Head Exam Head Exam: NORMAL INSPECTION - Eye Exam Eye Exam: Conjunctival injection (right eye), EOMI, PERRL - ENT Exam ENT Exam: Mucous Membranes Moist - Respiratory Exam Respiratory Exam: Clear to Ausculation Bilateral. absent: Rales, Rhonchi, Wheezes, Respiratory Distress - Cardiovascular Exam Cardiovascular Exam: REGULAR RHYTHM, +S1, +S2 Additional comments: (+) left upper chest wall AICD - GI/Abdominal Exam GI & Abdominal Exam: Soft, Normal Bowel Sounds. absent: Distended, Firm, Guarding, Rigid, Tenderness, Rebound - Back Exam Back Exam: NORMAL INSPECTION - Neurological Exam Neurological Exam: Alert, Awake - Skin Skin Exam: Dry, Normal Color, Warm Additional comments: (+) PICC line to right arm, nontender, no signs of bleeding or infection; C/D/I (+) healing ulcers to bilateral lower extremities (+) healing granulation tissue to the right foot; secondary to amputation Assessment and Plan - Assessment and Plan (Free Text) Assessment: Patient is a 48 yo male with a history of uncontrolled T2DM and CHF s/p AICD who presented with generalized weakness and falls. Required ICU admission for 1 day due to hypotension- no pressors. Now much clinically improved and downgraded to telemetry unit. Patient's initial blood Cx grew micrococcus species. Subsequent 3 sets grew Staph aureus. INA did not demonstrate vegetations. Negative Certec scan. Bone scan shows possible R foot cellulitis. Repeat Blood Cx negative x5days. R eye conjunctivitis improving. PICC placed 06/10. Will need 6-8 weeks IV abx. Plan: Sepsis with Staph aureus bacteremia- suspect source is cellulitis due to R foot amputation site, r/o endocarditis, osteomyelitis - Most recent fever 05/27 100.7 - Leukocytosis and bandemia resolved - Procal 27.53->8.3->0.24 - Lactate 1.8 - ESR 72 - CXR: no active disease - TTE: EF 26%, no vegetations - INA: moderately reduced EF, no vegetations or thrombi - Blood Cx (05/27): Micrococcus species x2 - Repeat Blood Cx (05/28, 05/30, 06/03): Staph aureus x5 - Repeat Blood Cx 06/02 no growth - Repeat Blood Cx 06/06 no growth * 6 weeks from 06/06/18-->earliest is Jul 18 (6 week prabhu) to complete IV abx - Urine, stool Cx no growth - Certec scan negative - R foot XR: no evidence of osteomyelitis - LE arterial and venous studies: no significant abnormalities per [facility] surgery - 3 view bone scans of b/l LEs: no evidence of osteomyelitis, possible R foot cellulitis - Punch biopsies from R foot- hyperkeratosis - Nafcillin 2 g IV Q4H- started 06/02/18 - Florastor 250 mg PO BID - ICU consulted on admission; transferred out. - Surgery consulted (James)- no intervention at this time - Podiatry consulted (Ryder)- no intervention at this time - ID consulted (Charly)- rec 6-8 wks IV abx - IR consulted (Jero)- PICC - PT/OT- rec home - s/p PICC placement 06/10/18; well tolerated and no signs of infection or bleeding since Renal insufficiency, improving- suspect ATN due to sepsis and/or CHF in addition to CKD from DM and HTN - Avoid ACEI/ARB and other nephrotoxic drugs - Renally dose meds - Maintain normotension - No IVF due to CHF - Nephrology consulted (Junior/Vlad)- no need for dialysis at this time but will continue to follow, continue Lasix R eye conjunctivitis, improving - Artificial tears BID - Bacitracin/Neomycin/polymyxin OD Q3H while awake x7 days- completed - Tobradex OD Q3H- started 06/07 - Ophthalmology consulted (Doron) Systolic heart failure (HFrEF)- s/p AICD - BNP 11,300 - Echo: EF 26% - Strict I's & O's - Daily weights - Fluid restriction <1200 mL/day - ASA 81 mg PO daily - Coreg 25 mg PO BID - Lasix 40 mg PO daily - Hydralazine 100 mg PO TID - Isosorbide nitrate 30 mg PO daily - Cardiology consulted (part) Type 2 diabetes mellitus - A1c 7.8 - Hypoglycemia protocol - Accuchecks ACHS with ISS - Lantus 20 units SC QHS - Aspart 70/30 6 u SC AC Transaminitis, resolved - Monitor CMP - Restart statin Secondary hyperparathyroidism- 2/2 kidney disease - Elevated PTH (153) - Low Ca - Elevated Ph - Low Vit D (<12.5) - Phoslo 667 mg PO BID - Ergocalciferol 50,000 QWK Dyslipidemia - Choles 112, LDL<30, HDL 12, TG 320-765 (suspect 2nd value is not fasting) - Crestor 5 mg PO QHS- restart 12 Elevated D-dimer (1468)- suspect 2/2 kidney disease - V/Q scan: low probability of PE - Cannot get CTA due to kidney function Elevated troponin, improved- h/o nonischemic cardiomyopathy (cath 10/19), suspect 2/2 kidney disease, doubt NSTEMI - Trop: 0.17->0.233->0.222 - EKG: no ST elevations, ventricular-paced rhythm - Cardiology consulted (Hupart)- no heparin or Plavix Hyponatremia, resolved - Avoid correction >6-8 mEq/24 hrs - TSH low (0.31), T4 wnl (1.5) - Serum osm 316 - Urine osm 281 - Urine Na 27, K 6.4 - AM cortisol elevated 29.7 - Sodium bicarb 1300 mg PO TID Thrombocytopenia, resolved- suspect 2/2 kidney disease - Monitor CBC - Hepatitis negative - HIV negative Constipation, resolved - Miralax 17 g PO daily PRN - Colace 100 mg PO daily - FOBT negative Ppx: VTE: heparin 5000 u SC Q12H GI: Pepcid 20 mg PO daily Code status: full code Disposition: patient should complete 6-8 weeks of IV abx to cover for infection; first available date to complete is Jul 18 at the 6th week prabhu. Blood pressure is responding to hydralazine increased yesterday.
[2018-06-12] MEDS: (Novolog) Insulin Aspart, Recombinant 100 u/ml 10 ml vial SC SCH ×4 (07:41→21:45)
[2018-06-12] MEDS: Fluticasone Nasal 50 mcg/Spray NAS SCH ×2 (09:31→17:17)
[2018-06-12] MEDS: Aritificial Tears (15ml) OU SCH ×2 (09:31→17:16)
[2018-06-12] MEDS: Multiple Vitamins Tab PO SCH (09:32)
[2018-06-12] MEDS: (Novolog Mix 70/30) Insulin Aspart/Insulin Aspar 100 units/ml SC SCH ×3 (09:32→17:16)
[2018-06-12] MEDS: Saccharomyces Boulardi 250 mg Cap PO SCH ×2 (09:33→17:16)
[2018-06-12] MEDS: (Lantus) Insulin Glargine, Recombinant SC SCH (21:41)
[2018-06-13] MEDS: Tobramycin/Dexamethasone (Tobradex) Opth Sol (2.5 ml) OD SCH ×8 (01:00→21:24)
--- NOTE | 2018-06-13 07:26 | CP.PCM.PN ---
Subjective - Date & Time of Evaluation Date of Evaluation: 06/13/18 Time of Evaluation: 07:15 - Subjective Subjective: PGY-1 Luisa Damon D.O. Medicine progress note for Dr. Conti's service: Patient was seen and examined this morning. No acute complaints. Denies diarrhea x2 days. R eye itching and tearing is still present but improved. Objective - Vital Signs/Intake and Output Vital Signs (last 24 hours): Temp Pulse Resp BP Pulse Ox 97.6 F 67 20 121/65 98 06/12/18 23:30 06/12/18 23:30 06/12/18 23:30 06/12/18 23:30 06/12/18 23:30 Intake and Output: 06/13/18 06/13/18 06:59 18:59 Intake Total 1000 Balance 1000 - Medications Medications: Current Medications Artificial Tears (Artificial Tears) 1 ml OU BID [facility] Last Admin: 06/12/18 17:16 Dose: 1 drop Aspirin (Aspirin Chewable) 81 mg PO DAILY [facility] Last Admin: 06/12/18 09:32 Dose: 81 mg Calcium Acetate (Phoslo) 667 mg PO BIDCC [facility] Last Admin: 06/12/18 17:17 Dose: 667 mg Carvedilol (Coreg) 25 mg PO BID [facility] Last Admin: 06/12/18 17:17 Dose: 25 mg Dextrose (Dextrose 50% Inj) 0 ml IV STAT PRN; Protocol PRN Reason: Hypoglycemia Protocol Last Admin: 06/10/18 06:59 Dose: 50 ml Dextrose (Glutose 15) 0 gm PO ONCE PRN; Protocol PRN Reason: Hypoglycemia Protocol Docusate Sodium (Colace) 100 mg PO DAILY [facility] Last Admin: 06/12/18 09:32 Dose: Not Given Ergocalciferol (Drisdol 50,000 Intl Units Cap) 1 cap PO Q7D [facility] Last Admin: 06/07/18 15:18 Dose: 1 cap Famotidine (Pepcid) 20 mg PO DAILY [facility] Last Admin: 06/12/18 09:31 Dose: 20 mg Fluticasone Propionate (Flonase) 1 spr JAREN BID [facility] Last Admin: 06/12/18 17:17 Dose: 1 spr Folic Acid (Folic Acid) 1 mg PO DAILY [facility] Last Admin: 06/12/18 09:32 Dose: 1 mg Furosemide (Lasix) 40 mg PO DAILY [facility] Last Admin: 06/12/18 09:33 Dose: 40 mg Glucagon (Glucagen Diagnostic Kit) 0 mg IM STAT PRN; Protocol PRN Reason: Hypoglycemia Protocol Heparin Sodium (Porcine) (Heparin) 5,000 units SC Q12 [facility] Last Admin: 06/12/18 21:45 Dose: 5,000 units Hydralazine HCl (Apresoline) 50 mg PO TID [facility] Last Admin: 06/12/18 17:17 Dose: 50 mg Dextrose (Dextrose 5% In Water 1000 Ml) 1,000 mls @ 0 mls/hr IV .Q0M PRN; Protocol PRN Reason: Hypoglycemia Protocol Nafcillin Sodium 2 gm/ Sodium (Chloride) 250 mls @ 250 mls/hr IVPB Q4H [facility]; Protocol Last Admin: 06/13/18 05:40 Dose: 250 mls/hr Insulin Aspart (Novolog) 0 unit SC ACHS [facility]; Protocol Last Admin: 06/12/18 21:45 Dose: Not Given Insulin Aspart (Novolog Mix 70/30 (70/30 Units/Ml)) 6 units SC AC [facility] Last Admin: 06/12/18 17:16 Dose: 6 units Insulin Glargine (Lantus) 20 unit SC HS [facility] Last Admin: 06/12/18 21:41 Dose: 20 units Isosorbide Mononitrate (Imdur Er) 30 mg PO DAILY [facility] Last Admin: 06/12/18 09:33 Dose: 30 mg Loperamide HCl (Imodium) 2 mg PO QID PRN PRN Reason: Diarrhea Last Admin: 06/11/18 14:13 Dose: 2 mg Multivitamins (Hexavitamin) 1 tab PO DAILY [facility] Last Admin: 06/12/18 09:32 Dose: 1 tab Rosuvastatin Calcium (Crestor) 5 mg PO HS [facility] Last Admin: 06/12/18 21:45 Dose: 5 mg Saccharomyces Boulardii (Florastor) 250 mg PO BID [facility] Last Admin: 06/12/18 17:16 Dose: 250 mg Sodium Bicarbonate (Sodium Bicarbonate Tab) 1,300 mg PO BID [facility] Last Admin: 06/12/18 17:16 Dose: 1,300 mg Thiamine HCl (Vitamin B1 Tab) 100 mg PO DAILY [facility] Last Admin: 06/12/18 09:33 Dose: 100 mg Tobramycin/Dexamethasone (Tobradex Opht Susp) 0 ml OD Q3 [facility] Last Admin: 06/13/18 06:16 Dose: 1 drop - Labs Labs: 06/10/18 07:13 06/11/18 07:20 APTT 55 SECONDS (21-34) H D 05/28/18 08:32 - Constitutional Appears: No Acute Distress - Head Exam Head Exam: ATRAUMATIC, NORMAL INSPECTION - Eye Exam Eye Exam: Conjunctival injection (R eye, improved), EOMI - ENT Exam ENT Exam: Mucous Membranes Moist - Neck Exam Neck Exam: Normal Inspection - Respiratory Exam Respiratory Exam: Clear to Ausculation Bilateral, NORMAL BREATHING PATTERN. absent: Respiratory Distress - Cardiovascular Exam Cardiovascular Exam: REGULAR RHYTHM, +S1, +S2 - GI/Abdominal Exam GI & Abdominal Exam: Soft. absent: Tenderness - Rectal Exam Rectal Exam: Deferred - Extremities Exam Extremities Exam: absent: Pedal Edema, Tenderness Additional comments: hyperkeratosis of R foot unchanged chronic dry skin changes b/l LEs - Neurological Exam Neurological Exam: Alert, Awake, CN II-XII Intact, Normal Gait, Oriented x3 Neuro motor strength exam: Left Upper Extremity: 5, Right Upper Extremity: 5, Left Lower Extremity: 5, Right Lower Extremity: 5 - Psychiatric Exam Psychiatric exam: Normal Affect, Normal Mood - Skin Skin Exam: Dry, Normal Color, Warm Assessment and Plan - Assessment and Plan (Free Text) Assessment: Patient is a 48 yo male with a history of uncontrolled T2DM and CHF s/p AICD who presented with generalized weakness and falls. Required ICU admission for 1 day due to hypotension- no pressors. Now much clinically improved and downgraded to telemetry unit. Patient's initial blood Cx grew micrococcus species. Subsequent 3 sets grew Staph aureus. INA did not demonstrate vegetations. Negative Certec scan. Bone scan shows possible R foot cellulitis. Repeat Blood Cx final negative x2. R eye conjunctivitis improving. PICC placed 06/10. Will need 6-8 weeks IV abx (minimum last day 07/18). Plan: Sepsis with Staph aureus bacteremia, improving- suspect source is cellulitis due to R foot amputation site, ruled out endocarditis, osteomyelitis - Most recent fever 05/27 100.7 - Leukocytosis and bandemia resolved - Procal 27.53->8.3->0.24 - Lactate 1.8 - ESR 72 - CXR: no active disease - TTE: EF 26%, no vegetations - INA: moderately reduced EF, no vegetations or thrombi - Blood Cx (05/27): Micrococcus species x2 - Repeat Blood Cx (05/28, 05/30, 06/03): Staph aureus x5 - Repeat Blood Cx (06/02, 06/06) no growth - Urine, stool Cx no growth - Certec scan negative - R foot XR: no evidence of osteomyelitis - LE arterial and venous studies: no significant abnormalities per vas surgery - 3 view bone scans of b/l LEs: no evidence of osteomyelitis, possible R foot cellulitis - Punch biopsies from R foot- hyperkeratosis - PICC in [facility] 06/10 - Nafcillin 2 g IV Q4H- started 06/02/18 - Needs 6-8 weeks from 06/06/18- earliest end date 07/18 (6 weeks) - Florastor 250 mg PO BID - ICU consulted on admission- transferred out 05/29 - Surgery consulted (James)- no intervention at this time - Podiatry consulted (Ryder)- no intervention at this time - ID consulted (Charly)- rec 6-8 wks IV abx - IR consulted (Jero)- PICC (placed by nurse Tana) - PT/OT- rec home, no services needed Hypertension, fluctuating - Coreg 25 mg PO BID - Lasix 40 mg PO daily - Increase Hydralazine to 50 mg PO QID- consider increase to 300 mg daily max - Imdur 30 mg PO daily- consider increase if necessary - ACEI/ARB contraindicated due to EL Renal insufficiency, stable- suspect ATN due to sepsis and/or CHF in addition to CKD from DM and HTN - Avoid ACEI/ARB and other nephrotoxic drugs - Renally dose meds - Maintain normotension - No IVF due to CHF - Nephrology consulted (Junior/Vlad)- no need for dialysis at this time but will continue to follow, continue Lasix R eye conjunctivitis, improving - Artificial tears BID - Bacitracin/Neomycin/polymyxin OD Q3H while awake x7 days- completed - Tobradex OD Q3H- started 06/07 - Flonase BID - Ophthalmology consulted (Doron) Systolic heart failure (HFrEF)- s/p AICD - BNP 11,300 - Echo: EF 26% - Strict I's & O's - Daily weights - Fluid restriction <1200 mL/day - ASA 81 mg PO daily - Coreg 25 mg PO BID - Lasix 40 mg PO daily - Hydralazine 100 mg PO TID - Isosorbide nitrate 30 mg PO daily - Cardiology consulted ([facility]) Type 2 diabetes mellitus - A1c 7.8 - Hypoglycemia protocol - Accuchecks ACHS with ISS - Lantus 20 units SC QHS - Aspart 70/30 6 unit SC AC Secondary hyperparathyroidism- 2/2 kidney disease - Elevated PTH (153) - Low Ca - Elevated Ph - Low Vit D (<12.5) - Phoslo 667 mg PO BID - Ergocalciferol 50,000 QWK Dyslipidemia - Choles 112, LDL<30, HDL 12, TG 320-765 (suspect 2nd value is not fasting) - Crestor 5 mg PO QHS- restart 12/5 Elevated D-dimer (1468)- suspect 2/2 kidney disease - V/Q scan: low probability of PE - Cannot get CTA due to kidney function Elevated troponin, improved- h/o nonischemic cardiomyopathy (cath 10/19), suspect 2/2 kidney disease, doubt NSTEMI - Trop: 0.17->0.233->0.222 - EKG: no ST elevations, ventricular-paced rhythm - Cardiology consulted ([facility])- no heparin or Plavix Diarrhea, resolved - C. diff negative - Stool O&P negative - FOBT negative - Discontinue Imodium 20 mg PO QID PRN Transaminitis, resolved - Monitor CMP Hyponatremia, resolved - Avoid correction >6-8 mEq/24 hrs - TSH low (0.31), T4 wnl (1.5) - Serum osm 316 - Urine osm 281 - Urine Na 27, K 6.4 - AM cortisol elevated 29.7 - Sodium bicarb 1300 mg PO TID Thrombocytopenia, resolved- suspect 2/2 kidney disease - Monitor CBC - Hepatitis negative - HIV negative Constipation, resolved - Miralax 17 g PO daily PRN - Colace 100 mg PO daily - FOBT negative Ppx: VTE: SCD contraindicated due to cellulitis, heparin 5000 u SC Q12H GI: Pepcid 20 mg PO daily Code status: full code Case was discussed with attending, Dr. Conti.
[2018-06-13] MEDS: (Novolog) Insulin Aspart, Recombinant 100 u/ml 10 ml vial SC SCH ×4 (07:47→21:13)
[2018-06-13] MEDS: (Novolog Mix 70/30) Insulin Aspart/Insulin Aspar 100 units/ml SC SCH ×3 (08:50→17:47)
[2018-06-13] MEDS: Multiple Vitamins Tab PO SCH (09:40)
[2018-06-13] MEDS: Fluticasone Nasal 50 mcg/Spray NAS SCH ×2 (09:40→17:48)
[2018-06-13] MEDS: Saccharomyces Boulardi 250 mg Cap PO SCH ×2 (09:41→17:47)
[2018-06-13] MEDS: Aritificial Tears (15ml) OU SCH ×2 (09:43→17:48)
[2018-06-13 11:40] LABS: BASO # 0.1 K/uL (0.0-0.2); BASO % 2.1 % (0.0-2.0); EOS # 0.1 K/uL (0.0-0.7); EOS % 1.2 % (0.0-4.0); LYMPH # 1.3 K/uL (1.0-4.3); LYMPH % 19.1 % (20.0-40.0); MEAN CELL VOLUME 91.7 fL (80.0-94.0); MEAN CORPUSCULAR HGB CONC 33.8 g/dL (33.0-37.0); MEAN PLATELET VOLUME 8.6 fL (7.2-11.7); MONO # 0.3 K/uL (0.0-0.8); MONO % 4.9 % (0.0-10.0); NEUT # 5.1 K/uL (1.8-7.0); NEUT % 72.7 % (50.0-75.0); RBC 3.21 Mil/uL (4.40-5.90); RED CELL DISTRIBUTION WIDTH 13.7 % (11.5-14.5)
[2018-06-13 11:49] LABS: ALB/GLOB RATIO 0.8 (1.0-2.1); ALBUMIN 3.2 g/dL (3.5-5.0); CALCIUM 8.2 mg/dl (8.6-10.4)
--- NOTE | 2018-06-13 15:46 | CP.PCM.PN ---
Subjective - Date & Time of Evaluation Date of Evaluation: 06/13/18 Time of Evaluation: 15:44 - Subjective Subjective: Nephrology Consultation Note Assessment: Stable non-oliguric Acute Kidney Injury (N17.9) likely ATN due to sepsis (? 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 cr slightly up - does not appear volume overload - will hold lasix. Will check urine studies to make sure not developing ain to abx Hypertension control with meds as ordered. Maintain hemodynamics stable. Avoid hypotension. Patient not on ACEI/ARB due to recent EL. f/u cardiology c/w sodium bicarb 1300 mg bid na stable on weekly Vit D S: seen and examined no complaints Physical Examination: General Appearance: Comfortable, in no acute respiratory distress, co-operative . Vitals reviewed and noted as below Head; Atraumatic, normocephalic ENT: no ulcers no thrush. Tongue is midline. Oropharynx: no rash or ulcers. EYES: Pupils are equal, round and reactive to light accommodation. Eye muscles and extraocular movement intact. Sclera is anicteric Neck; supple no lymphadenopathy, no thyromegaly or bruit Lungs: Normal respiratory rate/effort. Breath sounds bilateral improved at bases with crackles Heart: Normal rate. s1s2 normal. No rub or gallop. Extremities: no edema. No varicose veins. Rt foot toe amputations Neurological: Patient is alert, awake and oriented to person, place and time. No focal deficit. Strength bilateral appropriate and equal Skin: Warm and dry. Normal turgor. No rash. Palpitation: Normal elasticity for age Abdomen: Abdomen is soft. Bowel sounds +. There is no abdominal tenderness, no guarding/rigidity no organomegaly Psych: normal insight and normal affect/mood MSK: no joint tenderness or swelling. Digits and nails normal, no deformity : kidney or bladder not palpable. Labs/imaging reviewed. Past medical history, past surgical history, family history, social history, allergy reviewed and noted as below Family hx: no hx of CKD. Rest non-contributory HIV/Hep B and C neg UA 2+ blood and neg prot Objective - Vital Signs/Intake and Output Vital Signs (last 24 hours): Temp Pulse Resp BP Pulse Ox 97.8 F 87 20 158/60 H 95 06/13/18 07:00 06/13/18 13:07 06/13/18 07:00 06/13/18 13:07 06/13/18 07:00 Intake and Output: 06/13/18 06/13/18 06:59 18:59 Intake Total 1000 Balance 1000 - Medications Medications: Current Medications Artificial Tears (Artificial Tears) 1 ml OU BID [facility] Last Admin: 06/13/18 09:43 Dose: 1 drop Aspirin (Aspirin Chewable) 81 mg PO DAILY [facility] Last Admin: 06/13/18 09:42 Dose: 81 mg Calcium Acetate (Phoslo) 667 mg PO BIDCC [facility] Last Admin: 06/13/18 09:00 Dose: 667 mg Carvedilol (Coreg) 25 mg PO BID [facility] Last Admin: 06/13/18 09:40 Dose: 25 mg Dextrose (Dextrose 50% Inj) 0 ml IV STAT PRN; Protocol PRN Reason: Hypoglycemia Protocol Last Admin: 06/10/18 06:59 Dose: 50 ml Dextrose (Glutose 15) 0 gm PO ONCE PRN; Protocol PRN Reason: Hypoglycemia Protocol Docusate Sodium (Colace) 100 mg PO DAILY [facility] Last Admin: 06/13/18 09:41 Dose: 100 mg Ergocalciferol (Drisdol 50,000 Intl Units Cap) 1 cap PO Q7D [facility] Last Admin: 06/07/18 15:18 Dose: 1 cap Famotidine (Pepcid) 20 mg PO DAILY [facility] Last Admin: 06/13/18 09:40 Dose: 20 mg Fluticasone Propionate (Flonase) 1 spr JAREN BID [facility] Last Admin: 06/13/18 09:40 Dose: 1 spr Folic Acid (Folic Acid) 1 mg PO DAILY [facility] Last Admin: 06/13/18 09:48 Dose: 1 mg Furosemide (Lasix) 40 mg PO DAILY [facility] Last Admin: 06/13/18 09:42 Dose: 40 mg Glucagon (Glucagen Diagnostic Kit) 0 mg IM STAT PRN; Protocol PRN Reason: Hypoglycemia Protocol Heparin Sodium (Porcine) (Heparin) 5,000 units SC Q12 [facility] Last Admin: 12/10/18 09:41 Dose: 5,000 units Hydralazine HCl (Apresoline) 50 mg PO QID [facility] Last Admin: 06/13/18 13:07 Dose: 50 mg Dextrose (Dextrose 5% In Water 1000 Ml) 1,000 mls @ 0 mls/hr IV .Q0M PRN; Protocol PRN Reason: Hypoglycemia Protocol Nafcillin Sodium 2 gm/ Sodium (Chloride) 250 mls @ 250 mls/hr IVPB Q4H [facility]; Pro tocol Last Admin: 06/13/18 13:08 Dose: 250 mls/hr Insulin Aspart (Novolog) 0 unit SC ACHS [facility]; Protocol Last Admin: 06/13/18 12:30 Dose: Not Given Insulin Aspart (Novolog Mix 70/30 (70/30 Units/Ml)) 6 units SC AC [facility] Last Admin: 06/13/18 12:30 Dose: 6 units Insulin Glargine (Lantus) 20 unit SC HS [facility] Last Admin: 06/12/18 21:41 Dose: 20 units Isosorbide Mononitrate (Imdur Er) 30 mg PO DAILY [facility] Last Admin: 06/13/18 09:40 Dose: 30 mg Multivitamins (Hexavitamin) 1 tab PO DAILY [facility] Last Admin: 06/13/18 09:40 Dose: 1 tab Rosuvastatin Calcium (Crestor) 5 mg PO HS [facility] Last Admin: 06/12/18 21:45 Dose: 5 mg Saccharomyces Boulardii (Florastor) 250 mg PO BID [facility] Last Admin: 06/13/18 09:41 Dose: 250 mg Sodium Bicarbonate (Sodium Bicarbonate Tab) 1,300 mg PO BID [facility] Last Admin: 06/13/18 09:41 Dose: 1,300 mg Thiamine HCl (Vitamin B1 Tab) 100 mg PO DAILY [facility] Last Admin: 06/13/18 09:40 Dose: 100 mg Tobramycin/Dexamethasone (Tobradex Opht Susp) 0 ml OD Q3 [facility] Last Admin: 06/13/18 13:07 Dose: 1 drop - Labs Labs: 06/13/18 11:21 06/13/18 11:21 APTT 55 SECONDS (21-34) H D 05/28/18 08:32
[2018-06-13] MEDS: (Lantus) Insulin Glargine, Recombinant SC SCH (21:14)
[2018-06-13 21:34] LABS: URINE BACTERIA RARE (<OCC); URINE BILIRUBIN NEGATIVE (NEGATIVE); URINE BLOOD NEGATIVE (NEGATIVE); URINE CLARITY Clear (Clear); URINE COLOR Straw (YELLOW); URINE GLUCOSE (UA) NORMAL (Normal); URINE LEUKOCYTE ESTERASE NEG Leu/uL (Negative); URINE PROTEIN NEGATIVE (NEGATIVE); URINE UROBILINOGEN NORMAL mg/dL (0.2-1.0)
[2018-06-13 21:36] LABS: CREATININE, RANDOM URINE 23.8 mg/dL
[2018-06-14] MEDS: Tobramycin/Dexamethasone (Tobradex) Opth Sol (2.5 ml) OD SCH ×8 (01:26→22:21)
--- NOTE | 2018-06-14 07:42 | CP.PCM.PN ---
Subjective - Date & Time of Evaluation Date of Evaluation: 06/14/18 Time of Evaluation: 07:41 - Subjective Subjective: PGY-1 Luisa Damon D.O. Medicine progress note for Dr. Conti's service: Patient was seen and examined this morning. No acute complaints. Objective - Vital Signs/Intake and Output Vital Signs (last 24 hours): Temp Pulse Resp BP Pulse Ox 97.9 F 81 20 171/90 H 95 06/14/18 07:00 06/14/18 07:00 06/14/18 07:00 06/14/18 07:00 06/14/18 07:00 Intake and Output: 06/14/18 06/14/18 06:59 18:59 Intake Total 750 Balance 750 - Medications Medications: Current Medications Artificial Tears (Artificial Tears) 1 ml OU BID [facility] Last Admin: 06/13/18 17:48 Dose: 1 drop Aspirin (Aspirin Chewable) 81 mg PO DAILY [facility] Last Admin: 06/13/18 09:42 Dose: 81 mg Calcium Acetate (Phoslo) 667 mg PO BIDCC [facility] Last Admin: 06/13/18 16:35 Dose: 667 mg Carvedilol (Coreg) 25 mg PO BID [facility] Last Admin: 06/13/18 17:47 Dose: 25 mg Dextrose (Dextrose 50% Inj) 0 ml IV STAT PRN; Protocol PRN Reason: Hypoglycemia Protocol Last Admin: 06/10/18 06:59 Dose: 50 ml Dextrose (Glutose 15) 0 gm PO ONCE PRN; Protocol PRN Reason: Hypoglycemia Protocol Docusate Sodium (Colace) 100 mg PO DAILY [facility] Last Admin: 06/13/18 09:41 Dose: 100 mg Ergocalciferol (Drisdol 50,000 Intl Units Cap) 1 cap PO Q7D [facility] Last Admin: 06/07/18 15:18 Dose: 1 cap Famotidine (Pepcid) 20 mg PO DAILY [facility] Last Admin: 06/13/18 09:40 Dose: 20 mg Fluticasone Propionate (Flonase) 1 spr JAREN BID [facility] Last Admin: 06/13/18 17:48 Dose: 1 spr Folic Acid (Folic Acid) 1 mg PO DAILY [facility] Last Admin: 06/13/18 09:48 Dose: 1 mg Furosemide (Lasix) 40 mg PO DAILY [facility] Last Admin: 06/13/18 09:42 Dose: 40 mg Glucagon (Glucagen Diagnostic Kit) 0 mg IM STAT PRN; Protocol PRN Reason: Hypoglycemia Protocol Heparin Sodium (Porcine) (Heparin) 5,000 units SC Q12 [facility] Last Admin: 06/13/18 21:23 Dose: 5,000 units Hydralazine HCl (Apresoline) 50 mg PO QID [facility] Last Admin: 06/13/18 21:28 Dose: 50 mg Dextrose (Dextrose 5% In Water 1000 Ml) 1,000 mls @ 0 mls/hr IV .Q0M PRN; Protocol PRN Reason: Hypoglycemia Protocol Nafcillin Sodium 2 gm/ Sodium (Chloride) 250 mls @ 250 mls/hr IVPB Q4H [facility]; Protocol Last Admin: 06/14/18 06:11 Dose: 250 mls/hr Insulin Aspart (Novolog) 0 unit SC ACHS [facility]; Protocol Last Admin: 06/13/18 21:13 Dose: Not Given Insulin Aspart (Novolog Mix 70/30 (70/30 Units/Ml)) 6 units SC AC [facility] Last Admin: 06/13/18 17:47 Dose: 6 units Insulin Glargine (Lantus) 20 unit SC HS [facility] Last Admin: 06/13/18 21:14 Dose: Not Given Isosorbide Mononitrate (Imdur Er) 30 mg PO DAILY [facility] Last Admin: 06/13/18 09:40 Dose: 30 mg Multivitamins (Hexavitamin) 1 tab PO DAILY [facility] Last Admin: 06/13/18 09:40 Dose: 1 tab Rosuvastatin Calcium (Crestor) 5 mg PO HS [facility] Last Admin: 06/13/18 21:23 Dose: 5 mg Saccharomyces Boulardii (Florastor) 250 mg PO BID [facility] Last Admin: 06/13/18 17:47 Dose: 250 mg Sodium Bicarbonate (Sodium Bicarbonate Tab) 1,300 mg PO BID [facility] Last Admin: 06/13/18 17:46 Dose: 1,300 mg Thiamine HCl (Vitamin B1 Tab) 100 mg PO DAILY [facility] Last Admin: 06/13/18 09:40 Dose: 100 mg Tobramycin/Dexamethasone (Tobradex Opht Susp) 0 ml OD Q3 [facility] Last Admin: 06/14/18 05:00 Dose: 1 drop - Labs Labs: 06/13/18 11:21 06/13/18 11:21 APTT 55 SECONDS (21-34) H D 05/28/18 08:32 - Constitutional Appears: Non-toxic, No Acute Distress, Unkempt - Head Exam Head Exam: ATRAUMATIC, NORMAL INSPECTION - Eye Exam Eye Exam: EOMI, PERRL - ENT Exam ENT Exam: Mucous Membranes Moist - Neck Exam Neck Exam: Normal Inspection - Respiratory Exam Respiratory Exam: Clear to Ausculation Bilateral, NORMAL BREATHING PATTERN. absent: Accessory Muscle Use, Respiratory Distress - Cardiovascular Exam Cardiovascular Exam: REGULAR RHYTHM, +S1, +S2 - GI/Abdominal Exam GI & Abdominal Exam: Soft. absent: Tenderness - Rectal Exam Rectal Exam: Deferred - Extremities Exam Extremities Exam: Joint Swelling (LUE) Additional comments: no change to scabs and chronic skin changes of LEs - Neurological Exam Neurological Exam: Alert, Awake, CN II-XII Intact, Normal Gait, Oriented x3 - Psychiatric Exam Psychiatric exam: Normal Affect, Normal Mood - Skin Skin Exam: Dry, Normal Color, Warm Assessment and Plan - Assessment and Plan (Free Text) Assessment: Patient is a 48 yo male with a history of uncontrolled T2DM and CHF s/p AICD who presented with generalized weakness and falls. Required ICU admission for 1 day due to hypotension- no pressors. Now much clinically improved and downgraded to telemetry unit. Patient's initial blood Cx grew micrococcus species. Subsequent 3 sets grew Staph aureus. INA did not demonstrate vegetations. Negative Certec scan. Bone scan shows possible R foot cellulitis. Repeat Blood Cx final negative x2. R eye conjunctivitis improving. PICC placed 06/10. Will need 6-8 weeks IV abx (minimum last day 07/18). ID (Dr. Parks) can switch patient to once daily dosing of abx. Case management will attempt to set-up outpatient infusions. Plan: Sepsis with Staph aureus bacteremia, improving- suspect source is cellulitis due to R foot amputation site, ruled out endocarditis, osteomyelitis - Most recent fever 05/27 100.7 - Leukocytosis and bandemia resolved - Procal 27.53->8.3->0.24 - Lactate 1.8 - ESR 72 - CXR: no active disease - TTE: EF 26%, no vegetations - INA: moderately reduced EF, no vegetations or thrombi - Blood Cx (05/27): Micrococcus species x2 - Repeat Blood Cx (05/28, 05/30, 06/03): Staph aureus x5 - Repeat Blood Cx (06/02, 06/06) no growth - Urine, stool Cx no growth - Certec scan negative - R foot XR: no evidence of osteomyelitis - LE arterial and venous studies: no significant abnormalities per [facility] surgery - 3 view bone scans of b/l LEs: no evidence of osteomyelitis, possible R foot cellulitis - Punch biopsies from R foot- hyperkeratosis - PICC in RUE 06/10 - Nafcillin 2 g IV Q4H- started 06/02/18 - Needs 6-8 weeks from 06/06/18- earliest end date 07/18 (6 weeks) - ID states OK to switch to once daily daptomycin. Case management will determine if this will be feasible for outpatient infusions - Florastor 250 mg PO BID - ICU consulted on admission- transferred out 05/29 - Surgery consulted (James)- no intervention at this time - Podiatry consulted (Ryder)- no intervention at this time - ID consulted (Charly)- rec 6-8 wks IV abx - IR consulted (Jero)- PICC (placed by nurse Tana) - PT/OT- rec home, no services needed Anemia - FOBT negative on 06/05 - Repeat FOBT pending - Iron studies pending - Folate, B12 pending LUE edema - Apply warm compress - Doppler prelim: superficial phlebitis - F/u final report Hypertension, fluctuating - Coreg 25 mg PO BID - Lasix 40 mg PO daily - Hydralazine to 50 mg PO QID- consider increase to 300 mg daily max - Imdur 30 mg PO daily- consider increase if necessary - ACEI/ARB contraindicated due to EL Renal insufficiency, stable- suspect ATN due to sepsis and/or CHF in addition to CKD from DM and HTN - Avoid ACEI/ARB and other nephrotoxic drugs - Renally dose meds - Maintain normotension - No IVF due to CHF - Most recent UA 06/13 negative - GN work-up negative - Nephrology consulted (Junior/Vlad)- no need for dialysis at this time but will continue to follow, continue Lasix R eye conjunctivitis, improving - Artificial tears BID - Bacitracin/Neomycin/polymyxin OD Q3H while awake x7 days- completed - Tobradex OD Q3H- started 06/07 - Flonase BID - Ophthalmology consulted (Doron) Systolic heart failure (HFrEF)- s/p AICD - BNP 11,300 - Echo: EF 26% - Strict I's & O's - Daily weights - Fluid restriction <1200 mL/day - ASA 81 mg PO daily - Coreg 25 mg PO BID - Lasix 40 mg PO daily - Hydralazine 100 mg PO TID - Isosorbide nitrate 30 mg PO daily - Cardiology consulted (Hupart) Type 2 diabetes mellitus - A1c 7.8 - Hypoglycemia protocol - Accuchecks ACHS with ISS - Lantus 20 units SC QHS - Aspart 70/30 6 unit SC AC Secondary hyperparathyroidism- 2/2 kidney disease - Elevated PTH (153) - Low Ca - Elevated Ph - Low Vit D (<12.5) - Phoslo 667 mg PO BID - Ergocalciferol 50,000 QWK Dyslipidemia - Choles 112, LDL<30, HDL 12, TG 320-765 (suspect 2nd value is not fasting) - Crestor 5 mg PO QHS- restart 06/08 Elevated D-dimer (1468)- suspect 2/2 kidney disease - V/Q scan: low probability of PE - Cannot get CTA due to kidney function Elevated troponin, improved- h/o nonischemic cardiomyopathy (cath 10/19), suspect 2/2 kidney disease, doubt NSTEMI - Trop: 0.17->0.233->0.222 - EKG: no ST elevations, ventricular-paced rhythm - Cardiology consulted (part)- no heparin or Plavix Diarrhea, resolved - C. diff negative - Stool O&P negative - FOBT negative - Discontinue Imodium 20 mg PO QID PRN Transaminitis, resolved - Monitor CMP Hyponatremia, resolved - Avoid correction >6-8 mEq/24 hrs - TSH low (0.31), T4 wnl (1.5) - Serum osm 316 - Urine osm 281 - Urine Na 27, K 6.4 - AM cortisol elevated 29.7 - Sodium bicarb 1300 mg PO TID Thrombocytopenia, resolved- suspect 2/2 kidney disease - Monitor CBC - Hepatitis negative - HIV negative Constipation, resolved - Miralax 17 g PO daily PRN - Colace 100 mg PO daily - FOBT negative Ppx: VTE: SCD contraindicated due to cellulitis, heparin 5000 u SC Q12H GI: Pepcid 20 mg PO daily Code status: full code Case was discussed with attending, Dr. Conti.
[2018-06-14 08:28] LABS: BASO # 0.2 K/uL (0.0-0.2); BASO % 2.8 % (0.0-2.0); EOS # 0.1 K/uL (0.0-0.7); EOS % 1.3 % (0.0-4.0); HEMOGLOBIN 9.8 g/dL (12.0-18.0); LYMPH # 1.3 K/uL (1.0-4.3); LYMPH % 21.5 % (20.0-40.0); MEAN CELL VOLUME 92.2 fL (80.0-94.0); MEAN CORPUSCULAR HEMOGLOBIN 30.6 pg (27.0-31.0); MEAN CORPUSCULAR HGB CONC 33.1 g/dL (33.0-37.0); MEAN PLATELET VOLUME 8.8 fL (7.2-11.7); MONO # 0.3 K/uL (0.0-0.8); MONO % 4.6 % (0.0-10.0); NEUT # 4.2 K/uL (1.8-7.0); NEUT % 69.8 % (50.0-75.0); RBC 3.2 Mil/uL (4.40-5.90)
[2018-06-14] MEDS: (Novolog Mix 70/30) Insulin Aspart/Insulin Aspar 100 units/ml SC SCH ×3 (08:30→18:08)
[2018-06-14] MEDS: (Novolog) Insulin Aspart, Recombinant 100 u/ml 10 ml vial SC SCH ×4 (08:30→22:20)
[2018-06-14 08:40] LABS: ALB/GLOB RATIO 0.8 (1.0-2.1); ALBUMIN 3.1 g/dL (3.5-5.0); CALCIUM 8.1 mg/dl (8.6-10.4)
[2018-06-14] MEDS: Saccharomyces Boulardi 250 mg Cap PO SCH ×2 (09:24→18:06)
[2018-06-14] MEDS: Multiple Vitamins Tab PO SCH (09:25)
[2018-06-14] MEDS: Fluticasone Nasal 50 mcg/Spray NAS SCH ×2 (09:58→18:06)
[2018-06-14] MEDS: Aritificial Tears (15ml) OU SCH ×2 (10:01→18:05)
--- NOTE | 2018-06-14 12:52 | CP.PCM.PN ---
Subjective - Date & Time of Evaluation Date of Evaluation: 06/14/18 Time of Evaluation: 12:51 - Subjective Subjective: Nephrology Consultation Note Assessment: Stable non-oliguric Acute Kidney Injury (N17.9) likely ATN due to sepsis (? 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 anticipate gradual improvement Hypertension control with meds as ordered. Maintain hemodynamics stable. Avoid hypotension. Patient not on ACEI/ARB due to recent EL. coreg increased 25 mg bid meds for CHF being optimized by cardiology Monitor Input/Output, daily weights and renal function with basic metabolic panel resume lasix 40 bid c/w sodium bicarb 1300 mg bid avoid correction in serum Na >6-8 meq/24 hrs on weekly Vit D Dose meds/antibiotics for reduced GFR. Avoid fleets enema/magnesium based laxatives. Avoid nephrotoxins/NSAIDs/ iodinated contrast (unless needed emergently) Glycemic control Further work up for as per primary team Thanks for allowing me to participate in care of your patient. Will follow patient with you. Please call if any Qs. had d/w team Dr Max Chu Office: [phone] Subjective: Noted events overnight. Patients feels better Denies chest pain, palpitation, shortness of breath, leg swelling. All other negative. INA neg for IE Physical Examination: General Appearance: Comfortable, in no acute respiratory distress, co-operative . Vitals reviewed and noted as below Head; Atraumatic, normocephalic ENT: no ulcers no thrush. Tongue is midline. Oropharynx: no rash or ulcers. EYES: Pupils are equal, round and reactive to light accommodation. Eye muscles and extraocular movement intact. Sclera is anicteric. RT eye redness Neck; supple no lymphadenopathy, no thyromegaly or bruit Lungs: Normal respiratory rate/effort. Breath sounds bilateral improved at bases with occasional crackles Heart: Normal rate. s1s2 normal. No rub or gallop. Extremities: 1+ edema. No varicose veins. Rt foot toe amputations in past with superificial scab Neurological: Patient is alert, awake and oriented to person, place and time. No focal deficit. Strength bilateral appropriate and equal Skin: Warm and dry. Normal turgor. No rash. Palpitation: Normal elasticity for age Abdomen: Abdomen is soft. Bowel sounds +. There is no abdominal tenderness, no guarding/rigidity no organomegaly Psych: normal insight and normal affect/mood MSK: no joint tenderness or swelling. Digits and nails normal, no deformity : kidney or bladder not palpable. Labs/imaging reviewed. Past medical history, past surgical history, family history, social history, allergy reviewed and noted as below Family hx: no hx of CKD. Rest non-contributory HIV/Hep B and C neg UA 2+ blood and neg prot Objective - Vital Signs/Intake and Output Vital Signs (last 24 hours): Temp Pulse Resp BP Pulse Ox 97.9 F 96 H 20 164/88 H 95 06/14/18 07:00 06/14/18 09:21 06/14/18 07:00 06/14/18 09:24 06/14/18 07:00 Intake and Output: 06/14/18 06/14/18 06:59 18:59 Intake Total 750 Balance 750 - Medications Medications: Current Medications Artificial Tears (Artificial Tears) 1 ml OU BID [facility] Last Admin: 06/14/18 10:01 Dose: 1 drop Aspirin (Aspirin Chewable) 81 mg PO DAILY [facility] Last Admin: 06/14/18 09:24 Dose: 81 mg Calcium Acetate (Phoslo) 667 mg PO BIDCC [facility] Last Admin: 06/14/18 09:00 Dose: 667 mg Carvedilol (Coreg) 25 mg PO BID [facility] Last Admin: 06/14/18 09:24 Dose: 25 mg Dextrose (Dextrose 50% Inj) 0 ml IV STAT PRN; Protocol PRN Reason: Hypoglycemia Protocol Last Admin: 06/10/18 06:59 Dose: 50 ml Dextrose (Glutose 15) 0 gm PO ONCE PRN; Protocol PRN Reason: Hypoglycemia Protocol Docusate Sodium (Colace) 100 mg PO DAILY [facility] Last Admin: 06/14/18 09:23 Dose: 100 mg Ergocalciferol (Drisdol 50,000 Intl Units Cap) 1 cap PO Q7D [facility] Last Admin: 06/07/18 15:18 Dose: 1 cap Famotidine (Pepcid) 20 mg PO DAILY [facility] Last Admin: 06/14/18 09:24 Dose: 20 mg Fluticasone Propionate (Flonase) 1 spr JAREN BID [facility] Last Admin: 06/14/18 09:58 Dose: 1 spr Folic Acid (Folic Acid) 1 mg PO DAILY [facility] Last Admin: 06/14/18 09:23 Dose: 1 mg Furosemide (Lasix) 40 mg PO DAILY [facility] Last Admin: 06/13/18 09:42 Dose: 40 mg Furosemide (Lasix) 40 mg PO BID [facility] Glucagon (Glucagen Diagnostic Kit) 0 mg IM STAT PRN; Protocol PRN Reason: Hypoglycemia Protocol Heparin Sodium (Porcine) (Heparin) 5,000 units SC Q12 [facility] Last Admin: 06/14/18 09:58 Dose: 5,000 units Hydralazine HCl (Apresoline) 75 mg PO QID [facility] Dextrose (Dextrose 5% In Water 1000 Ml) 1,000 mls @ 0 mls/hr IV .Q0M PRN; Protocol PRN Reason: Hypoglycemia Protocol Nafcillin Sodium 2 gm/ Sodium (Chloride) 250 mls @ 250 mls/hr IVPB Q4H [facility]; Protocol Last Admin: 06/14/18 10:04 Dose: 250 mls/hr Insulin Aspart (Novolog) 0 unit SC [facility]; Protocol Last Admin: 06/14/18 12:16 Dose: Not Given Insulin Aspart (Novolog Mix 70/30 (70/30 Units/Ml)) 6 units SC AC [facility] Last Admin: 06/14/18 12:20 Dose: 6 units Insulin Glargine (Lantus) 20 unit SC HS [facility] Last Admin: 06/13/18 21:14 Dose: Not Given Isosorbide Mononitrate (Imdur) 60 mg PO DAILY [facility] Multivitamins (Hexavitamin) 1 tab PO DAILY [facility] Last Admin: 06/14/18 09:25 Dose: 1 tab Rosuvastatin Calcium (Crestor) 5 mg PO HS [facility] Last Admin: 06/13/18 21:23 Dose: 5 mg Saccharomyces Boulardii (Florastor) 250 mg PO BID [facility] Last Admin: 06/14/18 09:24 Dose: 250 mg Sodium Bicarbonate (Sodium Bicarbonate Tab) 650 mg PO BID [facility] Last Admin: 06/14/18 10:35 Dose: Not Given Thiamine HCl (Vitamin B1 Tab) 100 mg PO DAILY [facility] Last Admin: 06/14/18 09:24 Dose: 100 mg Tobramycin/Dexamethasone (Tobradex Opht Susp) 0 ml OD Q3 [facility] Last Admin: 06/14/18 09:58 Dose: 1 drop - Labs Labs: 06/14/18 08:16 06/14/18 08:16 APTT 55 SECONDS (21-34) H D 05/28/18 08:32
[2018-06-14] MEDS: Ergocalciferol 50,000 Intl Units Cap PO SCH (18:05)
[2018-06-14] MEDS: (Lantus) Insulin Glargine, Recombinant SC SCH (22:20)
[2018-06-15] MEDS: Tobramycin/Dexamethasone (Tobradex) Opth Sol (2.5 ml) OD SCH ×8 (01:13→22:00)
[2018-06-15 07:29] LABS: BASO # 0.1 K/uL (0.0-0.2); BASO % 1.2 % (0.0-2.0); EOS # 0.1 K/uL (0.0-0.7); HEMOGLOBIN 9.2 g/dL (12.0-18.0); LYMPH # 1.2 K/uL (1.0-4.3); LYMPH % 21.3 % (20.0-40.0); MEAN CELL VOLUME 92.1 fL (80.0-94.0); MEAN CORPUSCULAR HEMOGLOBIN 31.2 pg (27.0-31.0); MEAN CORPUSCULAR HGB CONC 33.8 g/dL (33.0-37.0); MEAN PLATELET VOLUME 8.7 fL (7.2-11.7); MONO # 0.3 K/uL (0.0-0.8); MONO % 5.5 % (0.0-10.0); NEUT # 3.9 K/uL (1.8-7.0); RBC 2.94 Mil/uL (4.40-5.90); RED CELL DISTRIBUTION WIDTH 14.2 % (11.5-14.5); WHITE BLOOD COUNT 5.6 K/uL (4.8-10.8)
[2018-06-15 07:44] VITALS: RESP 20
[2018-06-15 08:00] LABS: ALB/GLOB RATIO 0.8 (1.0-2.1); CALCIUM 7.9 mg/dl (8.6-10.4)
[2018-06-15] MEDS: (Novolog Mix 70/30) Insulin Aspart/Insulin Aspar 100 units/ml SC SCH ×2 (08:00→12:33)
[2018-06-15] MEDS: (Novolog) Insulin Aspart, Recombinant 100 u/ml 10 ml vial SC SCH ×4 (08:00→21:13)
[2018-06-15] MEDS: Multiple Vitamins Tab PO SCH (11:01)
[2018-06-15] MEDS: Aritificial Tears (15ml) OU SCH ×2 (11:02→17:18)
[2018-06-15] MEDS: Fluticasone Nasal 50 mcg/Spray NAS SCH ×2 (11:02→17:19)
[2018-06-15] MEDS: Saccharomyces Boulardi 250 mg Cap PO SCH ×2 (11:03→17:18)
--- NOTE | 2018-06-15 11:09 | CP.PCM.PN ---
Subjective - Date & Time of Evaluation Date of Evaluation: 06/15/18 Time of Evaluation: 10:01 - Subjective Subjective: PGY-1 Luisa Damon D.O. Medicine progress note for Dr. Conti's service: Patient was seen and examined this morning. He is sitting in a chair at bedside. No acute complaints. Denies chest pain, CAMPOS, SOB, N/V/C/D. His R eye is impro ving. Objective - Vital Signs/Intake and Output Vital Signs (last 24 hours): Temp Pulse Resp BP Pulse Ox 98.3 F 78 20 169/80 H 95 06/15/18 07:00 06/15/18 07:00 06/15/18 07:00 06/15/18 07:00 06/15/18 07:00 - Medications Medications: Current Medications Artificial Tears (Artificial Tears) 1 ml OU BID [facility] Last Admin: 06/14/18 18:05 Dose: 1 drop Aspirin (Aspirin Chewable) 81 mg PO DAILY [facility] Last Admin: 06/14/18 09:24 Dose: 81 mg Calcium Acetate (Phoslo) 667 mg PO BIDCC [facility] Last Admin: 06/15/18 08:38 Dose: 667 mg Carvedilol (Coreg) 25 mg PO BID [facility] Last Admin: 06/14/18 18:05 Dose: 25 mg Dextrose (Dextrose 50% Inj) 0 ml IV STAT PRN; Protocol PRN Reason: Hypoglycemia Protocol Last Admin: 06/10/18 06:59 Dose: 50 ml Dextrose (Glutose 15) 0 gm PO ONCE PRN; Protocol PRN Reason: Hypoglycemia Protocol Docusate Sodium (Colace) 100 mg PO DAILY [facility] Last Admin: 06/14/18 09:23 Dose: 100 mg Ergocalciferol (Drisdol 50,000 Intl Units Cap) 1 cap PO Q7D [facility] Last Admin: 06/14/18 18:05 Dose: 1 cap Famotidine (Pepcid) 20 mg PO DAILY [facility] Last Admin: 06/14/18 09:24 Dose: 20 mg Fluticasone Propionate (Flonase) 1 spr JAREN BID [facility] Last Admin: 06/14/18 18:06 Dose: 1 spr Folic Acid (Folic Acid) 1 mg PO DAILY [facility] Last Admin: 06/14/18 09:23 Dose: 1 mg Furosemide (Lasix) 40 mg PO DAILY [facility] Last Admin: 06/13/18 09:42 Dose: 40 mg Furosemide (Lasix) 40 mg PO BID [facility] Last Admin: 06/14/18 18:06 Dose: 40 mg Glucagon (Glucagen Diagnostic Kit) 0 mg IM STAT PRN; Protocol PRN Reason: Hypoglycemia Protocol Heparin Sodium (Porcine) (Heparin) 5,000 units SC Q12 [facility] Last Admin: 06/14/18 22:19 Dose: 5,000 units Hydralazine HCl (Apresoline) 75 mg PO QID [facility] Last Admin: 06/14/18 22:19 Dose: 75 mg Dextrose (Dextrose 5% In Water 1000 Ml) 1,000 mls @ 0 mls/hr IV .Q0M PRN; Protocol PRN Reason: Hypoglycemia Protocol Nafcillin Sodium 2 gm/ Sodium (Chloride) 250 mls @ 250 mls/hr IVPB Q4H [facility]; Protocol Last Admin: 06/15/18 07:45 Dose: 250 mls/hr Insulin Aspart (Novolog) 0 unit SC ACHS [facility]; Protocol Last Admin: 06/15/18 08:00 Dose: Not Given Insulin Aspart (Novolog Mix 70/30 (70/30 Units/Ml)) 6 units SC AC [facility] Last Admin: 06/15/18 08:00 Dose: Not Given Insulin Glargine (Lantus) 20 unit SC HS [facility] Last Admin: 06/14/18 22:20 Dose: 20 units Isosorbide Mononitrate (Imdur) 60 mg PO DAILY [facility] Multivitamins (Hexavitamin) 1 tab PO DAILY [facility] Last Admin: 06/14/18 09:25 Dose: 1 tab Rosuvastatin Calcium (Crestor) 5 mg PO HS [facility] Last Admin: 06/14/18 22:19 Dose: 5 mg Saccharomyces Boulardii (Florastor) 250 mg PO BID [facility] Last Admin: 06/14/18 18:06 Dose: 250 mg Thiamine HCl (Vitamin B1 Tab) 100 mg PO DAILY [facility] Last Admin: 06/14/18 09:24 Dose: 100 mg Tobramycin/Dexamethasone (Tobradex Opht Susp) 0 ml OD Q3 [facility] Last Admin: 06/15/18 08:38 Dose: 1 drop - Labs Labs: 06/15/18 07:19 06/15/18 07:19 APTT 55 SECONDS (21-34) H D 05/28/18 08:32 - Additional Findings Additional findings: - Constitutional Appears: Non-toxic, No Acute Distress, Unkempt - Head Exam Head Exam: ATRAUMATIC, NORMAL INSPECTION - Eye Exam Eye Exam: EOMI, PERRL R eye conjunctivitis and tearing improved - ENT Exam ENT Exam: Mucous Membranes Moist - Neck Exam Neck Exam: Normal Inspection - Respiratory Exam Respiratory Exam: Clear to Ausculation Bilateral, NORMAL BREATHING PATTERN. absent: Accessory Muscle Use, Respiratory Distress - Cardiovascular Exam Cardiovascular Exam: REGULAR RHYTHM, +S1, +S2 - GI/Abdominal Exam GI & Abdominal Exam: Soft. absent: Tenderness - Rectal Exam Rectal Exam: Deferred - Extremities Exam Extremities Exam: Joint Swelling (LUE) Additional comments: no change to scabs and chronic skin changes of LEs - Neurological Exam Neurological Exam: Alert, Awake, CN II-XII Intact, Normal Gait, Oriented x3 - Psychiatric Exam Psychiatric exam: Normal Affect, Normal Mood - Skin Skin Exam: Dry, Normal Color, Warm Assessment and Plan - Assessment and Plan (Free Text) Assessment: Patient is a 48 yo male with a history of uncontrolled T2DM and CHF s/p AICD who presented with generalized weakness and falls. Required ICU admission for 1 day due to hypotension- no pressors. Now much clinically improved and downgraded to telemetry unit. Patient's initial blood Cx grew micrococcus species. Subsequent 3 sets grew Staph aureus. INA did not demonstrate vegetations. Negative Certec scan. Bone scan shows possible R foot cellulitis. Repeat Blood Cx final negative x2. R eye conjunctivitis improving. PICC placed 06/10. Will need 6-8 weeks IV abx (minimum last day 07/18). ID (Dr. Parks) can switch patient to once daily dosing of abx. Case management will attempt to set-up outpatient infusions. Plan: Sepsis with Staph aureus bacteremia, improving- suspect source is cellulitis due to R foot amputation site, ruled out endocarditis, osteomyelitis - Most recent fever 05/27 100.7 - Leukocytosis and bandemia resolved - Procal 27.53->8.3->0.24 - Lactate 1.8 - ESR 72 - CXR: no active disease - TTE: EF 26%, no vegetations - INA: moderately reduced EF, no vegetations or thrombi - Blood Cx (05/27): Micrococcus species x2 - Repeat Blood Cx (05/28, 05/30, 06/03): Staph aureus x5 - Repeat Blood Cx (06/02, 06/06) no growth - Urine, stool Cx no growth - Certec scan negative - R foot XR: no evidence of osteomyelitis - LE arterial and venous studies: no significant abnormalities per [facility] surgery - 3 view bone scans of b/l LEs: no evidence of osteomyelitis, possible R foot cellulitis - Punch biopsies from R foot- hyperkeratosis - PICC in RUE 06/10 - Nafcillin 2 g IV Q4H- started 06/02/18 - Needs 6-8 weeks from 06/06/18- earliest end date 07/18 (6 weeks) - ID states OK to switch to once daily daptomycin. Case management will determine if this will be feasible for outpatient infusions - Florastor 250 mg PO BID - ICU consulted on admission- transferred out 05/29 - Surgery consulted (James)- no intervention at this time - Podiatry consulted (Ryder)- no intervention at this time - ID consulted (Charly)- rec 6-8 wks IV abx - IR consulted (Jero)- PICC (placed by nurse Tana) - PT/OT- rec home, no services needed Anemia - FOBT negative on 06/05 - Repeat FOBT pending - Iron studies pending - Folate, B12 pending Hypertension, fluctuating - Coreg 25 mg PO BID - Increase Lasix to 40 mg PO BID - Increae Hydralazine to 75 mg PO QID - Imdur 30 mg PO daily- consider increase if necessary - ACEI/ARB contraindicated due to EL Renal insufficiency, stable- suspect ATN due to sepsis and/or CHF in addition to CKD from DM and HTN - Avoid ACEI/ARB and other nephrotoxic drugs - Renally dose meds - Maintain normotension - No IVF due to CHF - Most recent UA 06/13 negative - GN work-up negative - Nephrology consulted (Junior/Vlad)- no need for dialysis at this time but will continue to follow, restart Lasix LUE superficial phlebitis - Apply warm compress x30 minuts Q6H - Doppler prelim: superficial phlebitis - F/u final report R eye conjunctivitis, improving - Artificial tears BID - Bacitracin/Neomycin/polymyxin OD Q3H while awake x7 days- completed - Tobradex OD Q3H- started 06/07 - Ophthalmology consulted (Doron) Secondary hyperparathyroidism- 2/2 kidney disease - Elevated PTH (153) - Low Ca - Elevated Ph - Low Vit D (<12.5) - Phoslo 667 mg PO BID - Ergocalciferol 50,000 QWK Systolic heart failure (HFrEF), chronic- s/p AICD, does not appear to be acute exacerbation - BNP 11,300 - Echo: EF 26% - Strict I's & O's - Daily weights - Fluid restriction <1200 mL/day - ASA 81 mg PO daily - Coreg 25 mg PO BID - Lasix 40 mg PO BID - Hydralazine 100 mg PO TID - Isosorbide nitrate 30 mg PO daily - Cardiology consulted (Toddpart) Type 2 diabetes mellitus, chronic - A1c 7.8 - Hypoglycemia protocol - Accuchecks ACHS with ISS - Lantus 20 units SC QHS - Aspart 70/30 6 unit SC AC Dyslipidemia, chronic - Choles 112, LDL<30, HDL 12, TG 320-765 (suspect 2nd value is not fasting) - Crestor 5 mg PO QHS- restart 06/08 Elevated D-dimer (1468)- suspect 2/2 kidney disease - V/Q scan: low probability of PE - Cannot get CTA due to kidney function Elevated troponin, improved- h/o nonischemic cardiomyopathy (cath 10/19), suspect 2/2 kidney disease, doubt NSTEMI - Trop: 0.17->0.233->0.222 - EKG: no ST elevations, ventricular-paced rhythm - Cardiology consulted (Hupart)- no heparin or Plavix Diarrhea, resolved - C. diff negative - Stool O&P negative - FOBT negative - Discontinue Imodium 20 mg PO QID PRN Transaminitis, resolved - Monitor CMP Hyponatremia, resolved - Avoid correction >6-8 mEq/24 hrs - TSH low (0.31), T4 wnl (1.5) - Serum osm 316 - Urine osm 281 - Urine Na 27, K 6.4 - AM cortisol elevated 29.7 - Sodium bicarb 1300 mg PO TID Thrombocytopenia, resolved- suspect 2/2 kidney disease - Monitor CBC - Hepatitis negative - HIV negative Constipation, resolved - Miralax 17 g PO daily PRN - Colace 100 mg PO daily - FOBT negative Ppx: VTE: SCD contraindicated due to cellulitis, heparin 5000 u SC Q12H GI: Pepcid 20 mg PO daily Code status: full code Case was discussed with attending, Dr. Conti.
--- NOTE | 2018-06-15 12:05 | VASCLAB ---
Date of service: 06/14/2018 PROCEDURE: Left Upper Extremity Venous Duplex Exam HISTORY: Non pitting edema PRIORS: None. TECHNIQUE: Left upper extremity, internal jugular, subclavian, axillary, brachial, ulnar, radial, basilic and upper cephalic veins were evaluated. Flow was assessed with color Doppler, compressibility, assessment of phasic flow and augmentation response. Report prepared by JANUARY Hand FINDINGS: LEFT: 1. Internal Jugular: 1.1. Compressibility - Fully compressible: Thrombus - None : Flow - Phasic: Augmentation -Normal: Reflux - None. 2. Subclavian: 2.1. Compressibility - Fully compressible: Thrombus - None : Flow - Phasic: Augmentation -Normal: Reflux - None. 3. Axillary: 3.1. Compressibility - Fully compressible: Thrombus - None : Flow - Phasic: Augmentation -Normal: Reflux - None. 4. Brachial: 4.1. Compressibility - Fully compressible: Thrombus - None: Flow - Phasic: Augmentation -Normal: Reflux - None. 5. Ulnar: 5.1. Compressibility - Fully compressible: Thrombus - None: Flow - Phasic: Augmentation -Normal: Reflux - None. 6. Radial: 6.1. Compressibility - Fully compressible: Thrombus - None: Flow - Phasic: Augmentation - Normal: Reflux - None. 7. Cephalic: 7.1. Not visualized. 8. Basilic: 8.1. Compressibility - Incompressible: Thrombus - Chronic: Flow - Absent (at the forearm level) OTHER FINDINGS: Left: The left upper am basilic vein is compressible. The left basilic vein is not compressible from proximal forearm to wrist level. IMPRESSION: Left: Chronic superficial phlebitis of the left basilic vein, at the forearm level. No evidence of DEEP vein thrombosis of the left upper Normal venous flow noted in the right internal jugular and right subclavian veins.
--- NOTE | 2018-06-15 15:49 | CP.PCM.PN ---
Subjective - Date & Time of Evaluation Date of Evaluation: 06/15/18 Time of Evaluation: 15:49 - Subjective Subjective: Nephrology Consultation Note Assessment: Stable non-oliguric Acute Kidney Injury (N17.9) likely ATN due to sepsis (? 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 anticipate gradual improvement Hypertension control with meds as ordered. Maintain hemodynamics stable. Avoid hypotension. Patient not on ACEI/ARB due to recent EL. coreg increased 25 mg bid meds for CHF being optimized by cardiology Monitor Input/Output, daily weights and renal function with basic metabolic panel resume lasix 40 bid d/c bicarb. will add epogen for anemia avoid correction in serum Na >6-8 meq/24 hrs on weekly Vit D Dose meds/antibiotics for reduced GFR. Avoid fleets enema/magnesium based laxatives. Avoid nephrotoxins/NSAIDs/ iodinated contrast (unless needed emergently) Glycemic control Further work up for as per primary team Thanks for allowing me to participate in care of your patient. Will follow patient with you. Please call if any Qs. had d/w team Dr aMx Chu Office: [phone] Subjective: Noted events overnight. Patients feels better Denies chest pain, palpitation, shortness of breath, leg swelling. All other negative. INA neg for IE Physical Examination: General Appearance: Comfortable, in no acute respiratory distress, co-operative . Vitals reviewed and noted as below Head; Atraumatic, normocephalic ENT: no ulcers no thrush. Tongue is midline. Oropharynx: no rash or ulcers. EYES: Pupils are equal, round and reactive to light accommodation. Eye muscles and extraocular movement intact. Sclera is anicteric. RT eye redness Neck; supple no lymphadenopathy, no thyromegaly or bruit Lungs: Normal respiratory rate/effort. Breath sounds bilateral improved at bases with occasional crackles Heart: Normal rate. s1s2 normal. No rub or gallop. Extremities: 1+ edema. No varicose veins. Rt foot toe amputations in past with superificial scab Neurological: Patient is alert, awake and oriented to person, place and time. No focal deficit. Strength bilateral appropriate and equal Skin: Warm and dry. Normal turgor. No rash. Palpitation: Normal elasticity for age Abdomen: Abdomen is soft. Bowel sounds +. There is no abdominal tenderness, no guarding/rigidity no organomegaly Psych: normal insight and normal affect/mood MSK: no joint tenderness or swelling. Digits and nails normal, no deformity : kidney or bladder not palpable. Labs/imaging reviewed. Past medical history, past surgical history, family history, social history, allergy reviewed and noted as below Family hx: no hx of CKD. Rest non-contributory HIV/Hep B and C neg UA 2+ blood and neg prot Objective - Vital Signs/Intake and Output Vital Signs (last 24 hours): Temp Pulse Resp BP Pulse Ox 98.3 F 78 20 166/89 H 95 06/15/18 07:00 06/15/18 07:00 06/15/18 07:00 06/15/18 11:03 06/15/18 07:00 - Medications Medications: Current Medications Artificial Tears (Artificial Tears) 1 ml OU BID [facility] Last Admin: 06/15/18 11:02 Dose: 1 drop Aspirin (Aspirin Chewable) 81 mg PO DAILY [facility] Last Admin: 06/15/18 11:04 Dose: 81 mg Calcium Acetate (Phoslo) 667 mg PO BIDCC [facility] Last Admin: 06/15/18 08:38 Dose: 667 mg Carvedilol (Coreg) 25 mg PO BID [facility] Last Admin: 06/15/18 11:01 Dose: 25 mg Dextrose (Dextrose 50% Inj) 0 ml IV STAT PRN; Protocol PRN Reason: Hypoglycemia Protocol Last Admin: 06/10/18 06:59 Dose: 50 ml Dextrose (Glutose 15) 0 gm PO ONCE PRN; Protocol PRN Reason: Hypoglycemia Protocol Docusate Sodium (Colace) 100 mg PO DAILY [facility] Last Admin: 06/15/18 11:02 Dose: 100 mg Ergocalciferol (Drisdol 50,000 Intl Units Cap) 1 cap PO Q7D [facility] Last Admin: 06/14/18 18:05 Dose: 1 cap Famotidine (Pepcid) 20 mg PO DAILY [facility] Last Admin: 06/15/18 11:02 Dose: 20 mg Fluticasone Propionate (Flonase) 1 spr JAREN BID [facility] Last Admin: 06/15/18 11:02 Dose: 1 spr Folic Acid (Folic Acid) 1 mg PO DAILY [facility] Last Admin: 06/15/18 11:01 Dose: 1 mg Furosemide (Lasix) 40 mg PO BID [facility] Last Admin: 06/15/18 11:03 Dose: 40 mg Glucagon (Glucagen Diagnostic Kit) 0 mg IM STAT PRN; Protocol PRN Reason: Hypoglycemia Protocol Heparin Sodium (Porcine) (Heparin) 5,000 units SC Q12 [facility] Last Admin: 06/15/18 11:03 Dose: 5,000 units Hydralazine HCl (Apresoline) 75 mg PO QID [facility] Last Admin: 06/15/18 14:24 Dose: Not Given Dextrose (Dextrose 5% In Water 1000 Ml) 1,000 mls @ 0 mls/hr IV .Q0M PRN; Protocol PRN Reason: Hypoglycemia Protocol Nafcillin Sodium 2 gm/ Sodium (Chloride) 250 mls @ 250 mls/hr IVPB Q4H [facility]; Protocol Last Admin: 06/15/18 14:24 Dose: 250 mls/hr Insulin Aspart (Novolog) 0 unit SC ACHS [facility]; Protocol Last Admin: 06/15/18 12:32 Dose: 1 units Insulin Aspart (Novolog Mix 70/30 (70/30 Units/Ml)) 6 units SC AC [facility] Last Admin: 06/15/18 12:33 Dose: 6 units Insulin Glargine (Lantus) 20 unit SC HS [facility] Last Admin: 06/14/18 22:20 Dose: 20 units Isosorbide Mononitrate (Imdur) 60 mg PO DAILY [facility] Last Admin: 06/15/18 11:01 Dose: 60 mg Multivitamins (Hexavitamin) 1 tab PO DAILY [facility] Last Admin: 06/15/18 11:01 Dose: 1 tab Rosuvastatin Calcium (Crestor) 5 mg PO HS [facility] Last Admin: 06/14/18 22:19 Dose: 5 mg Saccharomyces Boulardii (Florastor) 250 mg PO BID [facility] Last Admin: 06/15/18 11:03 Dose: 250 mg Thiamine HCl (Vitamin B1 Tab) 100 mg PO DAILY [facility] Last Admin: 06/15/18 11:01 Dose: 100 mg Tobramycin/Dexamethasone (Tobradex Opht Susp) 0 ml OD Q3 [facility] Last Admin: 06/15/18 14:24 Dose: 1 drop - Labs Labs: 06/15/18 07:19 06/15/18 07:19 APTT 55 SECONDS (21-34) H D 05/28/18 08:32
--- NOTE | 2018-06-15 18:30 | CP.PCM.PN ---
Subjective - Date & Time of Evaluation Date of Evaluation: 06/15/18 Time of Evaluation: 09:00 - Subjective Subjective: day for d/c on Cubicin 400 mg q 48 h Objective - Vital Signs/Intake and Output Vital Signs (last 24 hours): Temp Pulse Resp BP Pulse Ox 97.9 F 76 20 160/83 H 95 06/15/18 15:49 06/15/18 15:49 06/15/18 15:49 06/15/18 17:18 06/15/18 15:49 - Medications Medications: Current Medications Artificial Tears (Artificial Tears) 1 ml OU BID [facility] Last Admin: 06/15/18 17:18 Dose: 1 drop Aspirin (Aspirin Chewable) 81 mg PO DAILY [facility] Last Admin: 06/15/18 11:04 Dose: 81 mg Calcium Acetate (Phoslo) 667 mg PO BIDCC [facility] Last Admin: 06/15/18 17:18 Dose: 667 mg Carvedilol (Coreg) 25 mg PO BID [facility] Last Admin: 06/15/18 17:18 Dose: 25 mg Dextrose (Dextrose 50% Inj) 0 ml IV STAT PRN; Protocol PRN Reason: Hypoglycemia Protocol Last Admin: 06/10/18 06:59 Dose: 50 ml Dextrose (Glutose 15) 0 gm PO ONCE PRN; Protocol PRN Reason: Hypoglycemia Protocol Docusate Sodium (Colace) 100 mg PO DAILY [facility] Last Admin: 06/15/18 11:02 Dose: 100 mg Epoetin Saman (Procrit) 4,000 unit SC TTS [facility] Ergocalciferol (Drisdol 50,000 Intl Units Cap) 1 cap PO Q7D [facility] Last Admin: 06/14/18 18:05 Dose: 1 cap Famotidine (Pepcid) 20 mg PO DAILY [facility] Last Admin: 06/15/18 11:02 Dose: 20 mg Fluticasone Propionate (Flonase) 1 spr JAREN BID [facility] Last Admin: 06/15/18 17:19 Dose: 1 spr Folic Acid (Folic Acid) 1 mg PO DAILY [facility] Last Admin: 06/15/18 11:01 Dose: 1 mg Furosemide (Lasix) 40 mg PO BID [facility] Last Admin: 06/15/18 17:18 Dose: 40 mg Glucagon (Glucagen Diagnostic Kit) 0 mg IM STAT PRN; Protocol PRN Reason: Hypoglycemia Protocol Heparin Sodium (Porcine) (Heparin) 5,000 units SC Q12 [facility] Last Admin: 06/15/18 11:03 Dose: 5,000 units Hydralazine HCl (Apresoline) 75 mg PO QID [facility] Last Admin: 06/15/18 17:18 Dose: 75 mg Dextrose (Dextrose 5% In Water 1000 Ml) 1,000 mls @ 0 mls/hr IV .Q0M PRN; Prot ocol PRN Reason: Hypoglycemia Protocol Nafcillin Sodium 2 gm/ Sodium (Chloride) 250 mls @ 250 mls/hr IVPB Q4H [facility]; Protocol Last Admin: 06/15/18 17:19 Dose: 250 mls/hr Insulin Aspart (Novolog) 0 unit SC ACHS [facility]; Protocol Last Admin: 06/15/18 16:30 Dose: Not Given Insulin Aspart (Novolog Mix 70/30 (70/30 Units/Ml)) 20 units SC ACB [facility] Insulin Aspart (Novolog Mix 70/30 (70/30 Units/Ml)) 10 units SC HS [facility] Isosorbide Mononitrate (Imdur) 60 mg PO DAILY [facility] Last Admin: 06/15/18 11:01 Dose: 60 mg Multivitamins (Hexavitamin) 1 tab PO DAILY [facility] Last Admin: 06/15/18 11:01 Dose: 1 tab Rosuvastatin Calcium (Crestor) 5 mg PO HS [facility] Last Admin: 06/14/18 22:19 Dose: 5 mg Saccharomyces Boulardii (Florastor) 250 mg PO BID [facility] Last Admin: 06/15/18 17:18 Dose: 250 mg Thiamine HCl (Vitamin B1 Tab) 100 mg PO DAILY [facility] Last Admin: 06/15/18 11:01 Dose: 100 mg Tobramycin/Dexamethasone (Tobradex Opht Susp) 0 ml OD Q3 [facility] Last Admin: 06/15/18 16:07 Dose: 1 drop - Labs Labs: 06/15/18 07:19 06/15/18 07:19 APTT 55 SECONDS (21-34) H D 05/28/18 08:32 Assessment and Plan (1) Bacteremia Status: Acute (2) Acute on chronic systolic (congestive) heart failure Status: Acute (3) CHF exacerbation Status: Acute (4) Dilated cardiomyopathy Status: Acute (5) NSTEMI (non-ST elevated myocardial infarction) Status: Acute (6) Sepsis Status: Acute
--- NOTE | 2018-06-15 18:41 | CP.PCM.PCO ---
Physician Communication Note - Physician Communication Note Physician Communication Note: statin placed on hold while on Cubicin
[2018-06-15] MEDS ORDERED: DAPTOmycin 500 MG in Sodium Chloride 0.9% 100 ML IV SCH (19:30)
[2018-06-15 20:31] LABS: IRON 48 ug/dL (49-181)
[2018-06-15 20:40] LABS: % IRON SATURATION 20 (20-55); TOTAL IRON BINDING CAPACITY 247 ug/dL (250-450)
[2018-06-15 21:40] LABS: FOLATE > 20.0 ng/mL
[2018-06-15] MEDS ORDERED: (Novolog Mix 70/30) Insulin Aspart/Insulin Aspar 100 units/ml SC SCH (22:00)
[2018-06-16] MEDS: Tobramycin/Dexamethasone (Tobradex) Opth Sol (2.5 ml) OD SCH ×5 (01:00→13:46)
[2018-06-16] MEDS ORDERED: (Novolog Mix 70/30) Insulin Aspart/Insulin Aspar 100 units/ml SC SCH (07:30)
[2018-06-16 07:45] LABS: BASO # 0.1 K/uL (0.0-0.2); BASO % 2.3 % (0.0-2.0); EOS # 0.1 K/uL (0.0-0.7); EOS % 2.5 % (0.0-4.0); HEMOGLOBIN 9.4 g/dL (12.0-18.0); LYMPH # 1.4 K/uL (1.0-4.3); LYMPH % 24.1 % (20.0-40.0); MEAN CORPUSCULAR HEMOGLOBIN 30.9 pg (27.0-31.0); MEAN CORPUSCULAR HGB CONC 33.6 g/dL (33.0-37.0); MEAN PLATELET VOLUME 8.8 fL (7.2-11.7); MONO # 0.4 K/uL (0.0-0.8); MONO % 6.5 % (0.0-10.0); NEUT # 3.7 K/uL (1.8-7.0); NEUT % 64.6 % (50.0-75.0); RBC 3.03 Mil/uL (4.40-5.90); RED CELL DISTRIBUTION WIDTH 14.4 % (11.5-14.5); WHITE BLOOD COUNT 5.7 K/uL (4.8-10.8)
[2018-06-16] MEDS: (Novolog) Insulin Aspart, Recombinant 100 u/ml 10 ml vial SC SCH ×2 (08:00→12:00)
[2018-06-16 08:14] LABS: ALB/GLOB RATIO 0.8 (1.0-2.1); CALCIUM 8.2 mg/dl (8.6-10.4)
[2018-06-16] MEDS ORDERED: EPOETIN ALFA 4,000 UNIT/ML ML Dialysis SC SCH (10:00)
[2018-06-16] MEDS: Saccharomyces Boulardi 250 mg Cap PO SCH (10:13)
[2018-06-16] MEDS: Multiple Vitamins Tab PO SCH (10:13)
[2018-06-16] MEDS: Fluticasone Nasal 50 mcg/Spray NAS SCH (10:15)
[2018-06-16] MEDS: Aritificial Tears (15ml) OU SCH (10:15)
--- NOTE | 2018-06-16 12:13 | CP.PCM.PN ---
Subjective - Date & Time of Evaluation Date of Evaluation: 06/16/18 Time of Evaluation: 12:12 - Subjective Subjective: Nephrology Consultation Note Assessment: Stable non-oliguric Acute Kidney Injury (N17.9) likely ATN due to sepsis (? 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 anticipate gradual improvement Hypertension control with meds as ordered. Maintain hemodynamics stable. Avoid hypotension. Patient not on ACEI/ARB due to recent EL. hydralazine 100 bid and added norvasc 10 meds for CHF being optimized by cardiology Monitor Input/Output, daily weights and renal function with basic metabolic panel resume lasix 40 bid d/c bicarb. will add epogen for anemia avoid correction in serum Na >6-8 meq/24 hrs on weekly Vit D Dose meds/antibiotics for reduced GFR. Avoid fleets enema/magnesium based laxatives. Avoid nephrotoxins/NSAIDs/ iodinated contrast (unless needed emergently) Glycemic control Further work up for as per primary team Thanks for allowing me to participate in care of your patient. Will follow kuldip ent with you. Please call if any Qs. had d/w team Dr Max Chu Office: [phone] Subjective: Noted events overnight. Patients feels better Denies chest pain, palpitation, shortness of breath, leg swelling. All other negative. INA neg for IE Physical Examination: General Appearance: Comfortable, in no acute respiratory distress, co-operative . Vitals reviewed and noted as below Head; Atraumatic, normocephalic ENT: no ulcers no thrush. Tongue is midline. Oropharynx: no rash or ulcers. EYES: Pupils are equal, round and reactive to light accommodation. Eye muscles and extraocular movement intact. Sclera is anicteric. RT eye redness Neck; supple no lymphadenopathy, no thyromegaly or bruit Lungs: Normal respiratory rate/effort. Breath sounds bilateral improved at bases with occasional crackles Heart: Normal rate. s1s2 normal. No rub or gallop. Extremities: 2+ edema. No varicose veins. Rt foot toe amputations in past with superificial scab Neurological: Patient is alert, awake and oriented to person, place and time. No focal deficit. Strength bilateral appropriate and equal Skin: Warm and dry. Normal turgor. No rash. Palpitation: Normal elasticity for age Abdomen: Abdomen is soft. Bowel sounds +. There is no abdominal tenderness, no guarding/rigidity no organomegaly Psych: normal insight and normal affect/mood MSK: no joint tenderness or swelling. Digits and nails normal, no deformity : kidney or bladder not palpable. Labs/imaging reviewed. Past medical history, past surgical history, family history, social history, allergy reviewed and noted as below Family hx: no hx of CKD. Rest non-contributory HIV/Hep B and C neg UA 2+ blood and neg prot Objective - Vital Signs/Intake and Output Vital Signs (last 24 hours): Temp Pulse Resp BP Pulse Ox 98.1 F 97 H 20 176/98 H 97 06/16/18 07:00 06/16/18 12:01 06/16/18 07:00 06/16/18 12:01 06/16/18 07:00 Intake and Output: 06/16/18 06/16/18 06:59 18:59 Intake Total 600 Balance 600 - Medications Medications: Current Medications Amlodipine Besylate (Norvasc) 10 mg PO DAILY [facility] Last Admin: 06/16/18 12:00 Dose: 10 mg Artificial Tears (Artificial Tears) 1 ml OU BID [facility] Last Admin: 06/16/18 10:15 Dose: 1 drop Aspirin (Aspirin Chewable) 81 mg PO DAILY [facility] Last Admin: 06/16/18 10:14 Dose: 81 mg Calcium Acetate (Phoslo) 667 mg PO BIDCC [facility] Last Admin: 06/16/18 08:28 Dose: 667 mg Carvedilol (Coreg) 25 mg PO BID [facility] Last Admin: 06/16/18 10:10 Dose: 25 mg Dextrose (Dextrose 50% Inj) 0 ml IV STAT PRN; Protocol PRN Reason: Hypoglycemia Protocol Last Admin: 06/10/18 06:59 Dose: 50 ml Dextrose (Glutose 15) 0 gm PO ONCE PRN; Protocol PRN Reason: Hypoglycemia Protocol Docusate Sodium (Colace) 100 mg PO DAILY [facility] Last Admin: 06/16/18 10:13 Dose: 100 mg Epoetin Saman (Procrit) 4,000 unit SC TTS [facility] Last Admin: 06/16/18 10:20 Dose: 4,000 unit Ergocalciferol (Drisdol 50,000 Intl Units Cap) 1 cap PO Q7D [facility] Last Admin: 06/14/18 18:05 Dose: 1 cap Famotidine (Pepcid) 20 mg PO DAILY [facility] Last Admin: 06/16/18 10:14 Dose: 20 mg Fluticasone Propionate (Flonase) 1 spr JAREN BID [facility] Last Admin: 06/16/18 10:15 Dose: 1 spr Folic Acid (Folic Acid) 1 mg PO DAILY [facility] Last Admin: 06/16/18 10:13 Dose: 1 mg Furosemide (Lasix) 40 mg PO BID [facility] Glucagon (Glucagen Diagnostic Kit) 0 mg IM STAT PRN; Protocol PRN Reason: Hypoglycemia Protocol Heparin Sodium (Porcine) (Heparin) 5,000 units SC Q12 [facility] Last Admin: 06/16/18 10:20 Dose: 5,000 units Dextrose (Dextrose 5% In Water 1000 Ml) 1,000 mls @ 0 mls/hr IV .Q0M PRN; Protocol PRN Reason: Hypoglycemia Protocol Daptomycin 500 mg/ Sodium (Chloride) 100 mls @ 100 mls/hr IV Q48H [facility]; Protocol Stop: 06/20/18 19:31 Last Admin: 06/15/18 20:30 Dose: 100 mls/hr Insulin Aspart (Novolog) 0 unit SC ACHS [facility]; Protocol Last Admin: 06/16/18 12:00 Dose: 1 units Insulin Aspart (Novolog Mix 70/30 (70/30 Units/Ml)) 20 units SC ACB [facility] Last Admin: 06/16/18 08:00 Dose: Not Given Insulin Aspart (Novolog Mix 70/30 (70/30 Units/Ml)) 10 units SC HS [facility] Last Admin: 06/15/18 22:00 Dose: 10 unit Isosorbide Mononitrate (Imdur) 60 mg PO DAILY [facility] Last Admin: 06/16/18 10:14 Dose: 60 mg Multivitamins (Hexavitamin) 1 tab PO DAILY [facility] Last Admin: 06/16/18 10:13 Dose: 1 tab Saccharomyces Boulardii (Florastor) 250 mg PO BID [facility] Last Admin: 06/16/18 10:13 Dose: 250 mg Thiamine HCl (Vitamin B1 Tab) 100 mg PO DAILY [facility] Last Admin: 06/16/18 10:13 Dose: 100 mg Tobramycin/Dexamethasone (Tobradex Opht Susp) 0 ml OD Q3 [facility] Last Admin: 06/16/18 10:14 Dose: 1 drop - Labs Labs: 06/16/18 07:37 06/16/18 07:37 APTT 55 SECONDS (21-34) H D 05/28/18 08:32
--- NOTE | 2018-06-16 14:54 | CP.PCM.DIS ---
Provider - Provider Date of Admission: 05/27/18 16:31 Attending physician: Damir Conti MD Primary care physician: Rodo Consults: 05/27/18 14:49 Critical Care Consult Stat Comment: Consulting Provider: Aileen Conti Consulting Physician: Aileen Conti Reason for Consult: bandemia, hyponatremia, nstemi 05/27/18 16:04 Infectious Disease Consult Routine Comment: Consulting Provider: Carlos Parks Consulting Physician: Carlos Parks Reason for Consult: sepsis Nephrology Consult Routine Comment: Consulting Provider: Robert Pacheco Consulting Physician: Robert Pacheco Reason for Consult: el Podiatry Consult Routine Comment: Consulting Provider: Kimberly Soler Consulting Physician: Kimberly Soler Reason for Consult: diabetic ulcers 05/27/18 16:20 Cardiology Consult Routine Comment: Consulting Provider: Velasquez Hernandez Consulting Physician: Velasuqez Hernandez Reason for Consult: NSTEMI 05/29/18 20:32 Vascular Surgery Routine Comment: patient has had recurrent hospitalizations for OM Consulting Provider: Link Ramirez Jr. Physician Instructions: Reason For Exam: vascular insuffiency, possible osteo 05/29/18 21:13 Physician Consult Routine Comment: Consulting Provider: Hill Sal Consulting Physician: Hill Sal Reason for Consult: Right eye conjuctivitis and cataract 06/15/18 16:36 Diabetic Education Referral Routine Comment: Physician Instructions: Reason For Exam: insulin dep diabetes Time Spent in preparation of Discharge (in minutes): 60 Diagnosis - Discharge Diagnosis (1) Bacteremia Status: Acute Priority: High (2) EL (acute kidney injury) Status: Acute Priority: High (3) Elevated troponin Status: Resolved Priority: Medium (4) Hypertension Status: Chronic Priority: Medium (5) Cellulitis of foot Status: Resolved Priority: Medium (6) Diabetes mellitus Status: Chronic Priority: Medium (7) Conjunctivitis Status: Resolved Priority: Low Hospital Course - Lab Results Lab Results: Micro Results 06/13/18 14:43 Stool Ova and Parasite Concentrate Exam - Final 06/13/18 14:43 Stool Stool Culture - Final NO SALMONELLA, SHIGELLA OR CAMPYLOBACTER ISOLATED. 06/06/18 11:01 Blood-Venous Blood Culture - Final NO GROWTH AFTER 5 DAYS 06/06/18 11:01 Blood-Venous Gram Stain - Final TEST NOT PERFORMED 06/06/18 06:42 Blood-Venous Blood Culture - Final NO GROWTH AFTER 5 DAYS 06/06/18 06:42 Blood-Venous Gram Stain - Final TEST NOT PERFORMED 06/08/18 12:08 Anus Ova and Parasite Concentrate Exam - Final 06/02/18 16:37 Blood-Venous Blood Culture - Final NO GROWTH AFTER 5 DAYS 06/02/18 16:37 Blood-Venous Gram Stain - Final TEST NOT PERFORMED 06/02/18 14:05 Blood-Venous Blood Culture - Final NO GROWTH AFTER 5 DAYS 06/02/18 14:05 Blood-Venous Gram Stain - Final TEST NOT PERFORMED 06/03/18 06:30 Blood-Venous S.aureus & Coag-Neg Staph PNA FISH - Final 06/03/18 06:30 Blood-Venous Blood Culture - Final Staphylococcus Aureus 06/03/18 06:30 Blood-Venous Gram Stain - Final 05/28/18 12:08 Blood-Venous Blood Culture - Final Staphylococcus Aureus 05/28/18 12:08 Blood-Venous Gram Stain - Final 05/28/18 10:15 Blood-Venous S.aureus & Coag-Neg Staph PNA FISH - Final 05/28/18 10:15 Blood-Venous Blood Culture - Final Staphylococcus Aureus 05/28/18 10:15 Blood-Venous Gram Stain - Final 05/30/18 07:30 Blood-Venous Blood Culture - Final Staphylococcus Aureus 05/30/18 07:30 Blood-Venous Gram Stain - Final 05/30/18 07:59 Blood-Venous S.aureus & Coag-Neg Staph PNA FISH - Final 05/30/18 07:59 Blood-Venous Blood Culture - Final Staphylococcus Aureus 05/30/18 07:59 Blood-Venous Gram Stain - Final 05/29/18 07:53 Naris MRSA Culture - Final MRSA NOT DETECTED 05/27/18 17:41 Stool Ova and Parasite Concentrate Exam - Final 05/29/18 Unknown Urine,Catheterized Urine Culture - Final No Growth (<1,000 CFU/ML) 05/27/18 13:10 Blood Blood Culture - Final Micrococcus Species 05/27/18 13:10 Blood Gram Stain - Final 05/27/18 13:15 Blood S.aureus & Coag-Neg Staph PNA FISH - Final 05/27/18 13:15 Blood Blood Culture - Preliminary Micrococcus Species 05/27/18 13:15 Blood Gram Stain - Final 05/27/18 17:41 Stool Stool Culture - Final NO SALMONELLA, SHIGELLA OR CAMPYLOBACTER ISOLATED. 05/27/18 22:37 Naris MRSA Culture (Admit) - Final MRSA NOT DETECTED 05/27/18 20:22 Sputum Gram Stain - Final 05/27/18 20:22 Sputum Sputum Culture - Final NORMAL ORAL IAM 05/27/18 Unknown Throat Group A Strep Throat Culture - Final NORMAL SAPROPHYTIC IAM. CULTURE NEGATIVE FOR BETA STREP GROUP A. 05/27/18 13:59 Urine Urine Culture - Final No Growth (<1,000 CFU/ML) Most Recent Lab Values WBC 5.7 K/uL (4.8-10.8) 06/16/18 07:37 RBC 3.03 Mil/uL (4.40-5.90) L 06/16/18 07:37 Hgb 9.4 g/dL (12.0-18.0) L 06/16/18 07:37 Hct 27.9 % (35.0-51.0) L 06/16/18 07:37 MCV 92.0 fL (80.0-94.0) 06/16/18 07:37 MCH 30.9 pg (27.0-31.0) 06/16/18 07:37 MCHC 33.6 g/dL (33.0-37.0) 06/16/18 07:37 RDW 14.4 % (11.5-14.5) 06/16/18 07:37 Plt Count 253 K/uL (130-400) 06/16/18 07:37 MPV 8.8 fL (7.2-11.7) 06/16/18 07:37 Neut % (Auto) 64.6 % (50.0-75.0) 06/16/18 07:37 Lymph % (Auto) 24.1 % (20.0-40.0) 06/16/18 07:37 [place] % (Auto) 6.5 % (0.0-10.0) 06/16/18 07:37 Eos % (Auto) 2.5 % (0.0-4.0) 06/16/18 07:37 Baso % (Auto) 2.3 % (0.0-2.0) H 06/16/18 07:37 Neut # (Auto) 3.7 K/uL (1.8-7.0) 06/16/18 07:37 Lymph # (Auto) 1.4 K/uL (1.0-4.3) 06/16/18 07:37 [place] # (Auto) 0.4 K/uL (0.0-0.8) 06/16/18 07:37 Eos # (Auto) 0.1 K/uL (0.0-0.7) 06/16/18 07:37 Baso # (Auto) 0.1 K/uL (0.0-0.2) 06/16/18 07:37 Neutrophils % (Manual) 81 % (50-75) H 05/31/18 11:36 Band Neutrophils % 1 % (0-2) 05/31/18 11:36 Lymphocytes % (Manual) 9 % (20-40) L 05/31/18 11:36 Monocytes % (Manual) 6 % (0-10) 05/31/18 11:36 Eosinophils % (Manual) 3 % (0-4) 05/31/18 11:36 Metamyelocytes % 1 % (0-0) H 05/28/18 08:45 Nucleated RBC % 1 % (0-0) H 05/27/18 20:11 Toxic Granulation Present 05/28/18 04:00 Platelet Estimate Normal (NORMAL) 05/31/18 11:36 Large Platelets Present 05/30/18 07:58 RBC Morphology Normal 05/29/18 06:28 Hypochromasia (manual) Slight 05/30/18 07:58 Poikilocytosis (manual Slight 05/30/18 07:58 Anisocytosis (manual) Slight 05/30/18 07:58 Target Cells Slight 05/27/18 20:11 ESR 72 mm/hr (0-15) H 05/30/18 19:50 APTT 55 SECONDS (21-34) H D 05/28/18 08:32 D-Dimer, Quantitative 1468 ng/mlDDU (0-243) H 05/27/18 19:03 pO2 22 mm/Hg (30-55) L 05/27/18 19:05 VBG pH 7.38 (7.32-7.43) 05/27/18 19:05 VBG pCO2 44 mmHg (40-60) 05/27/18 19:05 VBG HCO3 23.6 mmol/L 05/27/18 19:05 VBG Total CO2 27.4 mmol/L (22-28) 05/27/18 19:05 VBG O2 Sat (Calc) 38.5 % (40-65) L 05/27/18 19:05 VBG Base Excess 0.5 mmol/L (0.0-2.0) 05/27/18 19:05 VBG Potassium 3.4 mmol/L (3.6-5.2) L 05/27/18 19:05 Sodium 128.0 mmol/l (132-148) L 05/27/18 19:05 Chloride 94.0 mmol/L (98-107) L 05/27/18 19:05 Glucose 176 mg/dl (75-110) H 05/27/18 19:05 Lactate 1.6 mmol/L (0.7-2.1) 05/27/18 19:05 Sodium 138 mmol/L (132-148) 06/16/18 07:37 Potassium 4.8 mmol/L (3.6-5.2) 06/16/18 07:37 Chloride 105 mmol/L (98-107) 06/16/18 07:37 Carbon Dioxide 25 mmol/L (22-30) 06/16/18 07:37 Anion Gap 13 (10-20) 06/16/18 07:37 BUN 35 mg/dL (9-20) H 06/16/18 07:37 Creatinine 2.7 mg/dL (0.8-1.5) H 06/16/18 07:37 Est GFR ( Amer) 30 06/16/18 07:37 Est GFR (Non-Af Amer) 25 06/16/18 07:37 POC Glucose (mg/dL) 152 mg/dL (65-110) H 06/16/18 10:46 Random Glucose 104 mg/dL (75-110) 06/16/18 07:37 Hemoglobin A1c 7.8 % (4.2-6.5) H 05/29/18 04:00 Serum Osmolality 316 mosm/kg (272-300) H 05/31/18 11:36 Calcium 8.2 mg/dl (8.6-10.4) L 06/16/18 07:37 Phosphorus 5.1 mg/dL (2.5-4.5) H 06/16/18 07:37 Magnesium 2.0 mg/dL (1.6-2.3) 06/16/18 07:37 Iron 48 ug/dL (49-181) L 06/15/18 20:10 TIBC 247 ug/dL (250-450) L 06/15/18 20:10 % Saturation 20 (20-55) 06/15/18 20:10 Ferritin 281.0 ng/mL 06/15/18 20:10 Total Bilirubin 0.4 mg/dL (0.2-1.3) 06/16/18 07:37 AST 19 U/L (17-59) 06/16/18 07:37 ALT 30 U/L (21-72) 06/16/18 07:37 Alkaline Phosphatase 72 U/L (38-126) 06/16/18 07:37 Total Creatine Kinase 156 U/L (55-170) 05/28/18 02:00 CK-MB (Mass) 1.07 ng/mL (0.0-3.38) 05/28/18 02:00 Troponin I 0.2220 ng/mL (0.00-0.120) H* 05/28/18 02:00 NT-Pro-B Natriuret Pep 22599 pg/mL (0-900) H 05/27/18 13:20 Total Protein 6.9 g/dL (6.3-8.3) 06/16/18 07:37 Albumin 3.0 g/dL (3.5-5.0) L 06/16/18 07:37 Globulin 3.9 gm/dL (2.2-3.9) 06/16/18 07:37 Albumin/Globulin Ratio 0.8 (1.0-2.1) L 06/16/18 07:37 Triglycerides 765 mg/dL (0-149) H D 05/29/18 06:20 Cholesterol 112 mg/dL (0-199) 05/29/18 06:20 LDL Cholesterol Direct < 30 mg/dL (0-129) 05/29/18 06:20 HDL Cholesterol 12 mg/dL (30-70) L 05/29/18 06:20 Vitamin B12 643 pg/mL (239-931) 06/15/18 20:10 25-OH Vitamin D Total < 12.8 NG/ML (30.0-100.0) L 05/31/18 11:36 Folate > 20.0 ng/mL 06/15/18 20:10 Procalcitonin 0.24 NG/ML (0.19-0.49) 06/05/18 08:31 Free T4 1.50 ng/dL (0.78-2.19) 05/29/18 06:20 TSH 3rd Generation 0.31 mIU/L (0.46-4.68) L 05/29/18 06:20 PTH Intact Whole Molec 153 pg/mL (14-64) H 05/29/18 06:20 Cortisol AM Sample 29.7 ug/dL (4.46-22.7) H 05/31/18 11:36 Venous Blood Potassium 3.4 mmol/L (3.6-5.2) L 05/27/18 19:05 Urine Color Straw (YELLOW) 06/13/18 21:02 Urine Clarity Clear (Clear) 06/13/18 21:02 Urine pH 6.0 (5.0-8.0) 06/13/18 21:02 Ur Specific [place] 1.006 (1.003-1.030) 06/13/18 21:02 Urine Protein Negative mg/dL (NEGATIVE) 06/13/18 21:02 Urine Glucose (UA) Normal mg/dL (Normal) 06/13/18 21:02 Urine Ketones Negative mg/dL (NEGATIVE) 06/13/18 21:02 Urine Blood Negative (NEGATIVE) 06/13/18 21: Urine Nitrate Negative (NEGATIVE) 06/13/18 21: Urine Bilirubin Negative (NEGATIVE) 06/13/18 21:02 Urine Urobilinogen Normal mg/dL (0.2-1.0) 06/13/18 21:02 Ur Leukocyte Esterase Neg Deanna/uL (Negative) 06/13/18 21: Urine WBC (Auto) 2 /hpf (0-5) 06/13/18 21:02 Urine RBC (Auto) < 1 /hpf (0-3) 06/13/18 21:02 Ur Squamous Epith Cells < 1 /hpf (0-5) 05/27/18 13:59 Amorphous Sediment Few /ul (<OCC) H 05/30/18 19:50 Urine Bacteria Rare (<OCC) 06/13/18 21:02 Urine Eosinophils Negative (NEGATIVE) 06/13/18 21:02 Urine Osmolality 281 mosm/kg (300-1000) L 05/30/18 20:13 Ur Random Creatinine 23.8 mg/dL 06/13/18 21:02 U Random Total Protein 2084 mg/g creat (22-128) H 05/28/18 17:10 Ur Random Sodium 112 mmol/L 06/13/18 21:02 Ur Random Potassium 6.4 mmol/L 05/30/18 20:13 Urine Chloride 64 mmol/L (32-290) 05/30/18 20:12 Stool Occult Blood Negative (NEGATIVE) 06/15/18 23:10 Stool Leukocytes, Qual Negative (NEGATIVE) 05/27/18 17:41 Random Vancomycin 34.0 ug/mL 06/02/18 11:41 ANCA Screen Negative (NEGATIVE) 06/02/18 07:42 c-ANCA Titer TNP 06/02/18 07:42 Proteinase 3 (PR3) <1.0 AI (<1.0) 06/02/18 07:42 p-ANCA Titer TNP 06/02/18 07:42 Atypical p-ANCA Titer TNP 06/02/18 07:42 Myeloperoxidase Ab <1.0 AI (<1.0) 06/02/18 07:42 Complement C3 90.0 mg/dL (88.0-165.0) 06/02/18 07:42 Complement C4 34.4 mg/dL (14.0-44.0) 06/02/18 07:42 C. difficile Ag & Toxin Negative (NEGATIVE) 06/08/18 12:08 Hepatitis A IgM Ab Negative (NEGATIVE) 05/30/18 07:58 Hep Bs Antigen Negative (NEGATIVE) 05/30/18 07:58 Hep B Core IgM Ab Negative (NEGATIVE) 05/30/18 07:58 Hepatitis C Antibody Negative (NEGATIVE) 05/30/18 07:58 HIV 1&2 Antibody Screen Negative (NEGATIVE) 05/30/18 07:58 Influenza Typ A,B (EIA) Negative for flu a/b (NEGATIVE) 05/27/18 16:00 H.influenzae Type B Ag TEST NOT PERFORMED 05/29/18 18:14 Legionella Culture See note 05/29/18 19:51 Ur L.pneumophila Ag Negative (NEGATIVE) 05/27/18 07:49 Mycoplasma pneumon IgM Negative (NEGATIVE) 05/29/18 18:14 N.meningitidis ACY/W135 TEST NOT PERFORMED 05/29/18 18:14 N.meningi B/E.coli K1 Ag TEST NOT PERFORMED 05/29/18 18:14 Group B Strep Antigen TEST NOT PERFORMED 05/29/18 18:14 S. pneumoniae Antigen Negative (NEGATIVE) 05/29/18 18:14 - Hospital Course Hospital Course: This is a 48 year old welsh speaking male with past medical history including uncontrolled IDDM, hx of diabetic foot ulcer, HTN, hypercholesterolemia, CHF with biventricular AICD placement who presents to the ED for weakness, dizziness, unsteady gait for the past 4 days. He also endorses SOB described as rapid breathing during this time, both at rest and during exertion. Pt is a poor historian. As per pt and who is at bedside, he is not always compliant with insulin medication and only takes it "when he needs it." Sugars have ranged from 100-280 when he does take it. Pt has fallen multiple times during this week, but never landed on the floor or hit his head. states that pt has also had slurred speech at time, and that she is unable to understand him. Pt states that he was unable to hold a cup due to weakness in his hands. Pt denies LOC, seizure activity, numbness or tingling, bowel or bladder incontinence, fevers, headache, visual disturbances, chest pain, abdominal pain, dysuria. Upon admission, patient required ICU admission for 1 day due to hypotension- no pressors. Additionally, he had elevated troponins without any EKG changes. D- dimer was elevated, but V:Q scan was low probability for PE (no CTA due to elevated creatinine). He was then downgraded to telemetry unit. Patient's init ial blood Cx grew micrococcus species. Subsequent 3 sets grew Staph aureus. Patient was febrile for several days. Several tests were done in order to determine source of bacteremia. INA did not demonstrate vegetations or abnormalities of AICD. Patient had an abnormal growth/mass on his R foot where he previously had toes amputated. Biopsies were done to assess for squamous cell carcinoma, but pathology only showed hyperkeratosis. Negative Certec scan (looking for osteomyelitis). Bone scan showed possible R foot cellulitis. Repeat Blood Cx final negative x2 from 06/06. PICC placed 06/10. Will need 6-8 weeks IV abx (minimum last day 07/18). Patient found to have renal insufficiency which gradually improved but then plateaued. Nephrology saw patient. He was still producing adequate urine and did not require dialysis at any point. Nephrotoxic agents were discontinued. Glomerulonephritis work-up was negative. Patient subsequently discovered to have secondary hyperparathyroidism due to kidney d isease, and he was started on Phoslo. Patient had R eye conjunctivitis and was treated with 2 courses of eye drops. Patient's hypertensive medications were increased/adjusted as her continued to be hypertensive throughout hospitalization. Patient continued treatment for chronic medical problems of diabetes with insulin and CHF. PT saw patient and cleared for discharge home. Upon discharge, patient was afebrile and vitals were stable. He was feeling well and ambulating independently. His R eye conjunctivitis was resolved. He had no acute complaints and will follow-up at infusion center and at clinic upon discharge. Discharge Exam - Head Exam Head Exam: ATRAUMATIC, NORMAL INSPECTION - Additional Findings Additional findings: - Constitutional Appears: Non-toxic, No Acute Distress, Unkempt - Head Exam Head Exam: ATRAUMATIC, NORMAL INSPECTION - Eye Exam Eye Exam: EOMI, PERRL R eye conjunctivitis and tearing resolved - ENT Exam ENT Exam: Mucous Membranes Moist - Neck Exam Neck Exam: Normal Inspection - Respiratory Exam Respiratory Exam: Clear to Ausculation Bilateral, NORMAL BREATHING PATTERN. absent: Accessory Muscle Use, Respiratory Distress - Cardiovascular Exam Cardiovascular Exam: REGULAR RHYTHM, +S1, +S2 - GI/Abdominal Exam GI & Abdominal Exam: Soft. absent: Tenderness - Rectal Exam Rectal Exam: Deferred - Extremities Exam Extremities Exam: Joint Swelling (LUE) Additional comments: scabs and chronic skin changes of LEs - Neurological Exam Neurological Exam: Alert, Awake, CN II-XII Intact, Normal Gait, Oriented x3 - Psychiatric Exam Psychiatric exam: Normal Affect, Normal Mood - Skin Skin Exam: Dry, Normal Color, Warm Discharge Plan - Discharge Medications Prescriptions: amLODIPine [Norvasc] 10 mg PO DAILY #30 tab Aspirin [Aspirin Chewable] 81 mg PO DAILY #30 chew Calcium Acetate [Phoslo] 667 mg PO BIDCC #60 tab Carvedilol [Coreg] 25 mg PO BID #60 tab Ergocalciferol [Drisdol 50,000 Intl Units Cap] 1 cap PO Q7D #8 cap Furosemide [Lasix] 40 mg PO BID #60 tab Hydralazine HCl 100 mg PO BID #60 tablet Insulin Aspart/Insulin Aspar [Novolog Mix 70/30 (70/30 units/ml)] 20 units SC ACB #2 vial Insulin Aspart/Insulin Aspar [Novolog Mix 70/30 (70/30 units/ml)] 10 units SC HS #2 vial Isosorbide Mononitrate [Imdur] 60 mg PO DAILY #30 tab Syringe and Needle,Insulin,1Ml [Insulin Syringe] 1 each MC BID #100 dis.syr - Follow Up Plan Condition: IMPROVED Disposition: HOME/ ROUTINE Patient education suggested?: Yes Instructions: Diabetes Diet , Acute Kidney Failure (DC), Medicines for High Blood Pressure, Cellulitis (DC), Sepsis (DC), Hypertension (DC) Additional Instructions: Follow-up with Dr. Koehler at [facility] on floor B in 7-10 days by calling [phone]. Through the clinic, you will need to arrange for colonoscopy because of your age and low iron. You will be instructed by the clinic to start iron after you complete antibiotic treatment. Your first appointment with the infusion center for your IV antibiotics is this Wednesday06/17/18 at 8:15 AM at [facility] on the 3rd floor. Antibiotics will be continued through 07/18/18. Follow-up with the infectious disease specialist, Dr. Parks, as instructed by him. Apply a warm compress to your left upper arm for 30 minutes every 6 hours until swelling has resolved. Eat low sugar [place]cu[place] yogurt with probiotic every day. Take a daily multivitamin. Take all prescription medications as instructed below: Novolin 70/30 insulin 20 units SC before breakfast (8 AM) Novolin 70/30 10 units SC at bedtime (10 PM) Amlodipine (Norvasc) 10 mg once daily (2 PM) Aspirin 81 mg daily (8 AM) Calcium Acetate (Phoslo) 667 mg twice daily (8 AM and 8 PM) Carvedilol (Coreg) 25 mg twice daily (8 AM and 8 PM) Vitamin D 50,000 units 1 cap every Wednesday Furosemide (Lasix) 40 mg PO twice daily (8 AM and 2 PM) Hydralazine HCl (Apresoline) 100 mg twice daily (8 AM and 8 PM) Isosorbide Mononitrate (Imdur) 60 mg once daily (2 PM) Fernando un seguimiento con el Dr. Koehler en la [place] [facility] en el [facility] en 7-10 mijares llamando al [phone]. A travs de la clnica, deber hacer arreglos para louisa colonoscopia debido a de souza edad y bajo nivel de john. La clnica le indicar que comience a jude john despus de completar el tratamiento con antibiticos. De Souza primera walter con el centro de infusin para carlita antibiticos por va intravenosa es мария viernes a las 8:15 am en el [facility] en el [facility]. Los antibiticos se continuarn hasta el 07/18/18. Fernando un seguimiento con el especialista en enfermedades infecciosas, el Dr. Parks, segn las instrucciones de l. Aplique louisa compresa tibia en la parte superior del brazo olga lakshmi 30 minutos cada 6 horas hasta que la hinchazn se haya resuelto. [place] yogurt carter bajo en azcar con probiticos todos los mijares. Jude un multivitamnico diario. [place] todos los medicamentos recetados segn las instrucciones: Novolin 70/30 insulina 20 unidades SC antes del desayuno (8 AM) Novolin 70/30 10 unidades SC a la hora de acostarse (10 PM) Amlodipina (Norvasc) 10 mg louisa vez al da (2 PM) Aspirina 81 mg al da (8 AM) Acetato de calcio (Phoslo) 667 mg dos veces al da (8 AM y 8 PM) Carvedilol (Coreg) 25 mg dos veces al da (8 AM y 8 PM) Vitamina D 50,000 unidades 1 tapa cada jonathon Furosemida (Lasix) 40 mg PO dos veces al da (8 AM y 2 PM) Hidralazina HCl (apresolina) 100 mg dos veces al da (8 AM y 8 PM) Mononitrato de isosorbida (Imdur) 60 mg louisa vez al da (2 PM) Referrals: [facility] [Outside] Carlos Parks MD [Staff Provider] -
[2018-06-16 16:10] VITALS: BP 159/82; PULSE 80; TEMP 97.6; O2SAT 96
== END 2018-06-16 16:55 | disposition home or self-care (01) | DRG 720 ==
LOC: C.ER 12:04 → C.9E 16:31 → C.9I 21:31 → C.5S 05-29 23:00
PROVIDERS: ADMIT Family Medicine; ATTEND Family Medicine
PROC: 0JBQ0ZX Excision of Right Foot Subcutaneous Tissue and Fascia, Open Approach, Diagnostic (ICD-10-PCS; 2018-06-01)
PROC: 02HV33Z Insertion of Infusion Device into Superior Vena Cava, Percutaneous Approach (ICD-10-PCS; principal; 2018-06-10)
DX: A41.01 Sepsis due to Methicillin susceptible Staphylococcus aureus (principal); I21.4 Non-ST elevation (NSTEMI) myocardial infarction; I50.23 Acute on chronic systolic (congestive) heart failure; N17.9 Acute kidney failure, unspecified; I42.8 Other cardiomyopathies; E11.22 Type 2 diabetes mellitus with diabetic chronic kidney disease; D69.59 Other secondary thrombocytopenia; T87.43 Infection of amputation stump, right lower extremity; E11.51 Type 2 diabetes mellitus with diabetic peripheral angiopathy without gangrene; E11.65 Type 2 diabetes mellitus with hyperglycemia; R65.20 Severe sepsis without septic shock; Y83.5 Amputation of limb(s) as the cause of abnormal reaction of the patient, or of later complication, without mention of misadventure at the time of the procedure; L03.115 Cellulitis of right lower limb; I13.0 Hypertensive heart and chronic kidney disease with heart failure and stage 1 through stage 4 chronic kidney disease, or unspecified chronic kidney disease; N18.2 Chronic kidney disease, stage 2 (mild); Z79.4 Long term (current) use of insulin; E11.621 Type 2 diabetes mellitus with foot ulcer; L97.529 Non-pressure chronic ulcer of other part of left foot with unspecified severity; E87.1 Hypo-osmolality and hyponatremia; Z95.0 Presence of cardiac pacemaker; L85.9 Epidermal thickening, unspecified; H10.9 Unspecified conjunctivitis

== ENCOUNTER 2018-06-25 01:04 | Observation (INO) | payer OTHER ==
[2018-06-25 01:05] VITALS: PULSE 91; BMI 29.9
[2018-06-25 01:40] LABS: BASO # 0.1 K/uL (0.0-0.2); BASO % 1.3 % (0.0-2.0); EOS # 0.1 K/uL (0.0-0.7); EOS % 2.5 % (0.0-4.0); HEMOGLOBIN 9.4 g/dL (12.0-18.0); LYMPH # 1.3 K/uL (1.0-4.3); LYMPH % 31.5 % (20.0-40.0); MEAN CELL VOLUME 94.2 fL (80.0-94.0); MEAN CORPUSCULAR HEMOGLOBIN 31.4 pg (27.0-31.0); MEAN CORPUSCULAR HGB CONC 33.3 g/dL (33.0-37.0); MEAN PLATELET VOLUME 9.2 fL (7.2-11.7); MONO # 0.5 K/uL (0.0-0.8); MONO % 12.2 % (0.0-10.0); NEUT # 2.1 K/uL (1.8-7.0); NEUT % 52.5 % (50.0-75.0); NRBC % 0.1 % (0.0-2.0); RBC 2.99 Mil/uL (4.40-5.90); RED CELL DISTRIBUTION WIDTH 16.7 % (11.5-14.5)
[2018-06-25 02:00] LABS: ALB/GLOB RATIO 0.9 (1.0-2.1); ALBUMIN 3.7 g/dL (3.5-5.0); ALT/SGPT 58 U/L (21-72); AST/SGOT 36 U/L (17-59); BLOOD UREA NITROGEN 43 mg/dL (9-20); CALCIUM 8.5 mg/dl (8.6-10.4); GFR NON-AFRICAN AMERICAN 27
[2018-06-25 02:04] LABS: B-TYPE NATRIURETIC PEPTIDE 4830 pg/mL (0-900)
[2018-06-25 02:22] LABS: T3 0.835 nmol/L (1.49-2.60)
--- NOTE | 2018-06-25 04:35 | C.PDOC ---
History Of Present Illness 48 y/o male pt presents to the ER s/p syncope. Pt reports he was standing then he ended up in the ambulance en route to the hospital. Pt denies SOB, pain, fever, cough, or any other complaints at this time. Time Seen by Provider: 06/25/18 01:14 Chief Complaint (Nursing): Syncope History Per: Patient History/Exam Limitations: no limitations Onset/Duration Of Symptoms: Hrs Current Symptoms Are (Timing): Still Present Activity At Onset Of Symptoms: Standing Past Medical History Reviewed: Historical Data, Nursing Documentation, Vital Signs Vital Signs: Last Vital Signs Temp 98.5 F 06/25/18 01:22 Pulse 67 06/25/18 03:05 Resp 16 06/25/18 03:05 BP 134/72 06/25/18 03:05 Pulse Ox 96 06/25/18 03:05 - Medical History PMH: CAD, CHF, Diabetes, HTN, Hypercholesterolemia Surgical History: Pacemaker (Lt. sub clavian) - [facility] Procedures DRAINAGE OF L FOOT SUBCU/FASCIA, OPEN APPROACH (07/07/15) EXCISION OF LEFT FOOT SKIN, EXTERNAL APPROACH (10/27/17) EXCISION OF R FOOT SUBCU/FASCIA, OPEN APPROACH, DIAGN (05/27/18) EXTRACTION OF RIGHT FOOT SKIN, EXTERNAL APPROACH (10/12/16) FLUOROSCOPY OF LEFT HEART USING LOW OSMOLAR CONTRAST (10/12/16) FLUOROSCOPY OF MULT COR ART USING L OSM CONTRAST (10/12/16) INSERTION OF INFUSION DEV INTO SUP VENA CAVA, PERC APPROACH (05/27/18) MEASURE OF CARDIAC SAMPL & PRESSURE, L HEART, PERC APPROACH (10/12/16) RESECTION OF LEFT METATARSAL, OPEN APPROACH (07/07/15) RESECTION OF LEFT TOE PHALANX, OPEN APPROACH (10/27/17) Family History: States: Unknown Family Hx - Social History Hx Tobacco Use: No Hx Alcohol Use: No Hx Substance Use: No - Immunization History Hx Tetanus Toxoid Vaccination: No Hx Influenza Vaccination: No Hx Pneumococcal Vaccination: No Review Of Systems Except As Marked, All Systems Reviewed And Found Negative. Constitutional: Negative for: Fever, Chills, Other (pain) Cardiovascular: Negative for: Chest Pain Respiratory: Negative for: Shortness of Breath Gastrointestinal: Negative for: Nausea, Vomiting Genitourinary: Negative for: Dysuria, Frequency, Incontinence Musculoskeletal: Negative for: Neck Pain Neurological: Positive for: Other (syncope ). Negative for: Weakness Physical Exam - Physical Exam Appears: Non-toxic, No Acute Distress Skin: Warm, Dry Head: Normacephalic Eye(s): bilateral: Normal Inspection, EOMI Chest: Symmetrical, Other (pacemaker on left chest wall ) Cardiovascular: Rhythm Regular Respiratory: Rales (b/l; pulmonary L>R) Extremity: Normal ROM (x4) Neurological/Psych: Oriented x3, Normal Speech, Normal Cognition ED Course And Treatment - Laboratory Results Result Diagrams: 06/25/18 01:35 06/25/18 01:35 ECG: Interpreted By Me, Viewed By Me ECG Interpretation: No Acute Changes, No Changes From Prior (05/2018) Interpretation Of ECG: ventricularily paced; LAD Rate From EC O2 Sat by Pulse Oximetry: 96 (RA) Pulse Ox Interpretation: Normal Medical Decision Making Medical Decision Making: impression: syncope plans: -- CT angio -- CT head -- EKG -- chem labs -- blood work -- CXR -- aspirin Discussed case with hospitalist; pt will be admitted under hospitalist. CT head results: Name: PIETER SCHERER Exam Date: Jun 25, 2018 2:48:39 AM EST Modality Type: CT\SR Description: CT - BRAIN Gender: M Laterality: Not applicable : 66 Referring Physician: Raffy Mon (DO) CT SCAN OF THE BRAIN WITHOUT IV CONTRAST CLINICAL INDICATION: Syncope. TECHNIQUE: Axial and reformatted sagittal and coronal images of the brain obtained without IV contrast administration. Normal size of the ventricles and extra-axial spaces for the patient's age. Normal white matter tracts of the supratentorial brain. Normal basal ganglia and thalami. Normal brainstem. Normal cerebellum. There is no demonstrated extra-axial, intraparenchymal, or intraventricular he morrhage. There are no findings of an acute ischemic infarction. Normal calvarium. There is no demonstrated fracture. Normal soft tissue structures. Moderate chronic mucosal inflammatory changes of the paranasal sinuses. Secretions in the left maxillary sinus. IMPRESSION: Normal unenhanced CT scan of the brain. Sinusitis. Chronic. Superimpose acute sinusitis in the left maxillary sinus. Electronically signed on Jun 25, 2018 3:20:01 AM EST by: Josafat Palm M.D., Certified by [facility] DALAL, Neuroradiology Disposition - Disposition Disposition: HOSPITALIZED Disposition Time: 03:00 Condition: FAIR - Clinical Impression Clinical Impression: Syncope - Scribe Statement The provider has reviewed the documentation as recorded by the Scribe Sharri Negron Provider Attestation: All medical record entries made by the Scribe were at my direction and personally dictated by me. I have reviewed the chart and agree that the record accurately reflects my personal performance of the history, physical exam, medical decision making, and the department course for this patient. I have also personally directed, reviewed, and agree with the discharge instructions and disposition.
[2018-06-25 05:09] VITALS: RESP 20
--- NOTE | 2018-06-25 05:37 | CP.PCM.HP ---
<Brea Mckinley - Last Filed: 06/25/18 06:23> History of Present Illness - History of Present Illness History of Present Illness: cc: "I didn't wake up" Mr. Mi is a 48 year old male PMH uncontrolled IDDM s/p multiple toe amputations, hypertension, hypercholesterolemia, HFrEF s/p biventricular AICD placement, actively being treated for bacteremia (which he was discharged for on 06/16/18) BIB ambulance when witnessed an apneic episode this overnight. Patient was observed to be at baseline prior to going to bed. Around midnight, awoke to the patient's gasping respiration. He was apneic for approximately one full minute before having another gasping respiration. Afterwards, he was spontaneously breathing, but still did not wake despite sons propping him up to sitting, shaking him, and slapping his face. This is abnormal is the patient is normally a light sleeper. The patient reports he was aware he was being transported since he felt the motion of the gurney, and when he opened his eyes and came to in the ambulance he immediately recognized the setting and understood he was being sent to the hospital. admits that the patient has been snoring louder than normal, and patient reports vivid dreams since being discharged. Denies any history of sleep walking, sleep talking, sleep apnea. Patient has had a long acting nasal congestion. States that he has to sleep on at least 3 pillows since he worries about post nasal drip as he sleeps and forces himself to breath through his mouth once lying down. Patient is currently undergoing IV [facility] every other day for the bacteremia he was diagnosed with on previous admission. His last infusion was [facility], 06/23. Denies fever, chills, diaphoresis, dizziness, lightheadedness, change in vision, tinnitus, nausea, vomiting, chest pain, palpitations, cough. Patient states he was constipated and hadn't had a BM for 3 days. Upon arrival to the ED he was incontinent and was unable to give enough notice to reach the restroom in time. PMD: Dr. Koehler PMH: IDDM s/p toe amputations, HTN, HLD, HFrEF s/p biventricular AICD placement Med: per SEP. Patient admits noncompliance due to cost All: NKDA PSxHx: R toe amputation x 3, appendicitis, left 5th toe partial amputation, AICD placement FamHx: DM on both sides, MGF - [place] SocHx: Lives with and children. 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 Denies current or former use of tobacco and illicit drug use, occasional ETOH use. Full Code Present on Admission - Present on Admission Any Indicators Present on Admission: No Review of Systems - Constitutional Constitutional: Chills, Fatigue, Malaise, Snoring, Weakness. absent: Excessive Sweating, Fever, Frequent Falls, Headache, Lethargy, Night Sweats - EENT Eyes: absent: Blurred Vision, Diplopia, Itchy Eyes Ears: absent: Decreased Hearing, Tinnitus Nose/Mouth/Throat: Nasal Congestion, Nasal Discharge, Post Nasal Drip. absent: Sinus Pain, Sinus Pressure, Dysphagia, Halitosis, Hoarsness, Odynophagia - Cardiovascular Cardiovascular: absent: Chest Pain, Chest Pain at Rest, Chest Pain with Activity, Claudication, Dyspnea, Dyspnea on Exertion, Lightheadedness, Orthopnea, Palpitations, Pedal Edema, Syncope - Respiratory Respiratory: Cough. absent: Dyspnea, Hemoptysis, Dyspnea on Exertion, Wheezing, Chest Congestion, Change in Mucous Color - Gastrointestinal Gastrointestinal: Change in Bowel Habits, Constipation. absent: Abdominal Pain, Nausea, Vomiting - Genitourinary Genitourinary: Urinary Frequency. absent: Dysuria - Musculoskeletal Musculoskeletal: absent: Back Pain, Muscle Weakness, Myalgias, Numbness, Tingling - Integumentary Integumentary: absent: Dry Skin, Lesions, Rash - Neurological Neurological: absent: Convulsions, Disequilibrium, Dizziness, Numbness, Headach es, Sensory Deficit, Tingling - Psychiatric Psychiatric: absent: Abnormal Sleep Pattern, Anxiety, Confusion - Endocrine Endocrine: Fatigue. absent: Palpitations - Hematologic/Lymphatic Hematologic: absent: Easy Bleeding, Easy Bruising Past Patient History - Infectious Disease Hx of Infectious Diseases: None - Tetanus Immunizations Tetanus Immunization: Unknown - Past Medical History & Family History Past Medical History?: Yes Pertinent Family History: DM on both sides. MGF - [place] - Past Social History Smoking Status: Never Smoked Alcohol: Social Drugs: Denies Home Situation {Lives}: With Family - CARDIAC Hx Congestive Heart Failure: Yes Hx Hypercholesterolemia: Yes Hx Hypertension: Yes Hx Pacemaker: Yes (Lt. sub clavian) - PULMONARY Hx Respiratory Disorders: No - NEUROLOGICAL Hx Neurological Disorder: No - HEENT Hx HEENT Problems: No Hx Cataracts: Yes - RENAL Hx Chronic Kidney Disease: No - ENDOCRINE/METABOLIC Hx Diabetes Mellitus Type 1: Yes - HEMATOLOGICAL/ONCOLOGICAL Hx Blood Disorders: No - INTEGUMENTARY Hx Dermatological Problems: No - MUSCULOSKELETAL/RHEUMATOLOGICAL Hx Musculoskeletal Disorders: No Hx Falls: Yes - GASTROINTESTINAL Hx Gastrointestinal Disorders: No - GENITOURINARY/GYNECOLOGICAL Hx Genitourinary Disorders: No - PSYCHIATRIC Hx Substance Use: No - SURGICAL HISTORY Hx Surgeries: Yes Other/Comment: Right 3 digits amputation foot - ANESTHESIA Hx Anesthesia: Yes Hx Anesthesia Reactions: No Hx Malignant Hyperthermia: No Meds Allergies/Adverse Reactions: Allergies Allergy/AdvReac Type Severity Reaction Status Date / Time No Known Allergies Allergy Verified 05/27/18 12:15 Physical Exam - Constitutional Appears: Well, No Acute Distress - Head Exam Head Exam: ATRAUMATIC, NORMOCEPHALIC - Eye Exam Eye Exam: EOMI, Normal appearance, PERRL Pupil Exam: NORMAL ACCOMODATION - ENT Exam ENT Exam: Mucous Membranes Moist, Normal Oropharynx Additional comments: poor dentition no sinus tenderness nasal congestion, no post nasal drip - Neck Exam Neck exam: Positive for: Full Rom, Normal Inspection. Negative for: Lymphadenopathy, Tenderness, Thyromegaly - Respiratory Exam Respiratory Exam: Rales (mild in LLL), Rhonchi (R sided), NORMAL BREATHING PATTERN. absent: Accessory Muscle Use, Wheezes - Cardiovascular Exam Cardiovascular Exam: REGULAR RHYTHM, +S1, +S2. absent: Gallop, Rubs, Systolic Murmur - GI/Abdominal Exam GI & Abdominal Exam: Normal Bowel Sounds, Soft. absent: Distended, Firm, Guarding, Rebound, Rigid, Tenderness - Extremities Exam Extremities exam: Positive for: normal capillary refill, pedal pulses present. Negative for: calf tenderness Additional comments: PICC line in R arm, flushing well IV access in L AC peripheral pulses palpable bilaterally (radial, PT) R toe amputation x3, L 5th toe amputation - Back Exam Back exam: absent: CVA tenderness (L), CVA tenderness (R) - Neurological Exam Neurological exam: Alert, CN II-XII Intact, Normal Gait, Oriented x3, Reflexes Normal - Expanded Neurological Exam Expanded Patient oriented to: person, place, time Cranial nerves: EOM's Intact: Normal, Facial Palsey w/Forehead Movement: Normal, Facial Palsey w/o Forehead Movement: Normal, Facial Sensation: Normal, Tongue Deviation: Normal Ataxia: No Cerebellar Function: Finger to Nose: Normal, Heel to [place]: Normal Upper motor neuron: Pronator Drift: Normal Sensory exam: Lower Extremity Light Touch: Normal, Lower Extremity Pin Prick: Normal, Upper Extremity Light Touch: Normal, Upper Extremity Pin Prick: Normal Neuro motor strength exam: Left Upper Extremity: 5, Right Upper Extremity: 5, Left Lower Extremity: 5, Right Lower Extremity: 5 DTR: Brachioradialis Left: 3+, Brachioradialis Right: 3+, Patellar Left: 3+, Patellar Right: 3+, Tricep Left: 3+, Tricep Right: 3+ Coma Scale Eye Opening: SPONTANEOUS Coma Scale Motor Response: OBEYS COMMANDS Coma Scale Verbal: Oriented Coma Scale Total: 15 - Psychiatric Exam Psychiatric exam: Normal Affect, Normal Mood - Skin Skin Exam: Dry, Normal Color, Warm Additional comments: healing ulcers on bilateral shins Results - Vital Signs Recent Vital Signs: Last Vital Signs Temp 98.6 F 06/25/18 04:55 Pulse 64 06/25/18 04:55 Resp 20 06/25/18 04:55 BP 125/75 06/25/18 04:55 Pulse Ox 96 06/25/18 04:55 - Labs Result Diagrams: 06/25/18 01:35 06/25/18 01:35 Labs: Laboratory Results - last 24 hr 06/25/18 06/25/18 06/25/18 01:11 01:35 01:35 WBC 4.0 L RBC 2.99 L Hgb 9.4 L Hct 28.2 L MCV 94.2 H MCH 31.4 H MCHC 33.3 RDW 16.7 H Plt Count 170 MPV 9.2 Neut % (Auto) 52.5 Lymph % (Auto) 31.5 [place] % (Auto) 12.2 H Eos % (Auto) 2.5 Baso % (Auto) 1.3 Neut # (Auto) 2.1 Lymph # (Auto) 1.3 [place] # (Auto) 0.5 Eos # (Auto) 0.1 Baso # (Auto) 0.1 D-Dimer, Quantitative 356 H Sodium Potassium Chloride Carbon Dioxide Anion Gap BUN Creatinine Est GFR ( Amer) Est GFR (Non-Af Amer) POC Glucose (mg/dL) 183 H Random Glucose Calcium Phosphorus Magnesium Total Bilirubin AST ALT Alkaline Phosphatase Troponin I NT-Pro-B Natriuret Pep Total Protein Albumin Globulin Albumin/Globulin Ratio Total T3 TSH 3rd Generation 06/25/18 01:35 WBC RBC Hgb Hct MCV MCH MCHC RDW Plt Count MPV Neut % (Auto) Lymph % (Auto) [place] % (Auto) Eos % (Auto) Baso % (Auto) Neut # (Auto) Lymph # (Auto) [place] # (Auto) Eos # (Auto) Baso # (Auto) D-Dimer, Quantitative Sodium 133 Potassium 5.0 Chloride 104 Carbon Dioxide 18 L Anion Gap 16 BUN 43 H Creatinine 2.5 H Est GFR ( Amer) 33 Est GFR (Non-Af Amer) 27 POC Glucose (mg/dL) Random Glucose 168 H D Calcium 8.5 L Phosphorus 4.8 H Magnesium 2.0 Total Bilirubin 0.5 AST 36 ALT 58 Alkaline Phosphatase 100 Troponin I < 0.0120 NT-Pro-B Natriuret Pep 4830 H Total Protein 7.8 Albumin 3.7 Globulin 4.0 H Albumin/Globulin Ratio 0.9 L Total T3 0.835 L TSH 3rd Generation 2.19 Assessment & Plan - Assessment and Plan (Free Text) Assessment: 48yo M PMH uncontrolled IDDM s/p multiple toe amputations, HTN, HLD, HFrEF s/p biventricular AICD placement, actively being treated for bacteremia (which he was discharged for on 06/16/18) admitted for witnessed apneic episode this overnight. Plan: Witnessed Apneic Episode - CXR (06/24): pending read - CT Head w/o (06/24): pending read. Prelim: no acute changes; chronic sinusitis - f/u EKG - patient is currently asymptomatic - neurologically intact - Pulm consulted: Dr. Wesley - help appreciated for possible sleep study vs. CPAP Nasal Congestion - CT Head w/o (06/24): pending read. Prelim: no acute changes; chronic sinusitis - Flonase daily Bacteremia - multiple Blood Cx on previous admission grew Staph Aureus. Last positive Cx 06/03. Neg Cx on 06/06 - he has been going to the [facility] every other day for Cubicin infusion - ID consulted: Dr. Parks - help appreciated Hypertension - home Norvasc 10mg po daily - home Coreg 25mg po bid - home Lasix 40mg po bid - home Hydralazine 100mg po bid - home Imdur 60mg po daily - monitor vitals Diabetes Mellitus - home Phoslo 667mg po BIDCC - home Novolog 70/30 10u sc HS, 20u sc ACB - Accuchecks ACHS - ISS - hypoglycemia protocol Chronic Systolic CHF s/p biventricular pacemaker - ECHO: INA with Doppler (05/31): LV fxn moderately reduced with diffuse hypokinesis, normal Doppler - ECHO: TTE (05/27): severely reduced LV systolic fxn (<35%) with septal akinesis - home ASA 81mg po daily - home Coreg 25mg po bid PPx - DVT: Heparin 5000u sc q12, SCDs - GI: Pepcid 20mg po daily - Diet: Consistent Carb - HHD d/w Dr. Devorah Mckinley PGY-1 - Date & Time Date: 06/25/18 Time: 05:15 <Rick Fairchild - Last Filed: 06/25/18 06:46> Results - Vital Signs Recent Vital Signs: Last Vital Signs Temp 98.6 F 06/25/18 04:55 Pulse 63 06/25/18 05:20 Resp 20 06/25/18 04:55 BP 125/75 06/25/18 04:55 Pulse Ox 96 06/25/18 06:04 - Labs Result Diagrams: 06/25/18 01:35 06/25/18 01:35 Labs: Laboratory Results - last 24 hr 06/25/18 06/25/18 06/25/18 01:11 01:35 01:35 WBC 4.0 L RBC 2.99 L Hgb 9.4 L Hct 28.2 L MCV 94.2 H MCH 31.4 H MCHC 33.3 RDW 16.7 H Plt Count 170 MPV 9.2 Neut % (Auto) 52.5 Lymph % (Auto) 31.5 [place] % (Auto) 12.2 H Eos % (Auto) 2.5 Baso % (Auto) 1.3 Neut # (Auto) 2.1 Lymph # (Auto) 1.3 [place] # (Auto) 0.5 Eos # (Auto) 0.1 Baso # (Auto) 0.1 D-Dimer, Quantitative 356 H Sodium Potassium Chloride Carbon Dioxide Anion Gap BUN Creatinine Est GFR ( Amer) Est GFR (Non-Af Amer) POC Glucose (mg/dL) 183 H Random Glucose Calcium Phosphorus Magnesium Total Bilirubin AST ALT Alkaline Phosphatase Troponin I NT-Pro-B Natriuret Pep Total Protein Albumin Globulin Albumin/Globulin Ratio Total T3 TSH 3rd Generation 06/25/18 01:35 WBC RBC Hgb Hct MCV MCH MCHC RDW Plt Count MPV Neut % (Auto) Lymph % (Auto) [place] % (Auto) Eos % (Auto) Baso % (Auto) Neut # (Auto) Lymph # (Auto) [place] # (Auto) Eos # (Auto) Baso # (Auto) D-Dimer, Quantitative Sodium 133 Potassium 5.0 Chloride 104 Carbon Dioxide 18 L Anion Gap 16 BUN 43 H Creatinine 2.5 H Est GFR ( Amer) 33 Est GFR (Non-Af Amer) 27 POC Glucose (mg/dL) Random Glucose 168 H D Calcium 8.5 L Phosphorus 4.8 H Magnesium 2.0 Total Bilirubin 0.5 AST 36 ALT 58 Alkaline Phosphatase 100 Troponin I < 0.0120 NT-Pro-B Natriuret Pep 4830 H Total Protein 7.8 Albumin 3.7 Globulin 4.0 H Albumin/Globulin Ratio 0.9 L Total T3 0.835 L TSH 3rd Generation 2.19 Assessment & Plan - Date & Time Date: 06/25/18 (I have seen and examined the patient. I agree with the findings and plan of care as documented by Dr. Mckinley. Patient admitted due to witnessed apneic episode. Consult to pulm. CPAP for now. Also with bacteremia. Continue treatment plan from previous admission. Consult to ID. History of CHF and diabetes. History of hypertension. Continue home meds. NISS and accuchecks. Monitor for acute changes.) Time: 06:44 Attending/Attestation - Attestation I have personally seen and examined this patient.: Yes I have fully participated in the care of the patient.: Yes I have reviewed all pertinent clinical information: Yes
[2018-06-25] MEDS: (Novolog) Insulin Aspart, Recombinant 100 u/ml 10 ml vial SC SCH ×4 (08:05→21:42)
--- NOTE | 2018-06-25 09:49 | CT ---
Date of service: 06/25/2018 PROCEDURE: CT HEAD WITHOUT CONTRAST. HISTORY: syncope COMPARISON: 05/27/2018 TECHNIQUE: Axial computed tomography images were obtained through the head/brain without intravenous contrast. Radiation dose: Total exam DLP = 1302.48 mGy-cm. This CT exam was performed using one or more of the following dose reduction techniques: Automated exposure control, adjustment of the mA and/or kV according to patient size, and/or use of iterative reconstruction technique. FINDINGS: HEMORRHAGE: No intracranial hemorrhage. BRAIN: No mass effect or edema. No atrophy or chronic microvascular ischemic changes. VENTRICLES: Unremarkable. No hydrocephalus. CALVARIUM: Unremarkable. PARANASAL SINUSES: Chronic pansinusitis. Heterogeneous high attenuation within the maxillary antra may reflect inspissated dried secretions or allergic fungal sinusitis. MASTOID AIR CELLS: Unremarkable as visualized. No inflammatory changes. OTHER FINDINGS: None. IMPRESSION: No intracranial mass, hemorrhage or evidence of acute infarct. Chronic pansinusitis. Possible allergic fungal sinusitis. The preliminary findings for this examination were reported by [facility] at 3:20 a.m. on 06/25/2018. There is discordance of this report with the preliminary findings. There is no evidence of acute sinusitis. The possibility of allergic fungal sinusitis was not described in the preliminary report of this examination.
[2018-06-25] MEDS: (Novolog Mix 70/30) Insulin Aspart/Insulin Aspar 100 units/ml SC SCH (10:25)
--- NOTE | 2018-06-25 10:48 | RAD ---
Date of service: 06/25/2018 PROCEDURE: CHEST RADIOGRAPH, 1 VIEW HISTORY: chest pain COMPARISON: 06/10/2018 FINDINGS: LUNGS: No infiltrate. PLEURA: Linear opacity adjacent to right hilum likely fluid or thickening in minor fissure, new since prior examination. No pleural effusion. No pneumothorax. CARDIOVASCULAR: Normal heart size. AICD. No atherosclerotic calcification of thoracic aorta. OSSEOUS STRUCTURES: No significant abnormalities. VISUALIZED UPPER ABDOMEN: Normal. OTHER FINDINGS: None. IMPRESSION: No active disease.
--- NOTE | 2018-06-25 10:48 | CP.PCM.PN ---
Subjective - Date & Time of Evaluation Date of Evaluation: 06/25/18 Time of Evaluation: 10:35 - Subjective Subjective: Medical attending Note: Patient seen and examined at bedside. Patient's present at bedside. Per , she reports she was awoken last night due to patient's snoring. Patient looked like he was in sleep and was very difficult to arouse which caused her great concern. Patient denies chest pain, denies palpitations, denies abdominal pain, denies constipation, denies nausea, denies vomitting. Patient has been compliant on his outpatient IV transfusion to cover for Staph Aureus bacteremia, last went on ; next dose due today. Patient denies fever, denies chills. does report he has been drinking "3/4 Liters" a day. Objective - Vital Signs/Intake and Output Vital Signs (last 24 hours): Temp Pulse Resp BP Pulse Ox 98.4 F 64 20 119/64 95 06/25/18 08:27 06/25/18 08:27 06/25/18 08:27 06/25/18 08:27 06/25/18 08:27 - Medications Medications: Current Medications Amlodipine Besylate (Norvasc) 10 mg PO DAILY [facility] Last Admin: 06/25/18 10:33 Dose: 10 mg Aspirin (Aspirin Chewable) 81 mg PO DAILY [facility] Last Admin: 06/25/18 10:33 Dose: 81 mg [facility] Admin: 06/25/18 10:33 Dose: 667 mg Carvedilol (Coreg) 25 mg PO BID [facility] Famotidine (Pepcid) 20 mg PO DAILY [facility] Last Admin: 06/25/18 10:33 Dose: 20 mg Fluticasone Propionate (Flonase) 1 spr JAREN DAILY [facility] Furosemide (Lasix) 40 mg PO BID [facility] Heparin Sodium (Porcine) (Heparin) 5,000 units SC Q12 [facility] Last Admin: 06/25/18 10:34 Dose: 5,000 units Hydralazine HCl (Apresoline) 100 mg PO BID [facility] Last Admin: 06/25/18 10:33 Dose: 100 mg Insulin Aspart (Novolog Mix 70/30 (70/30 Units/Ml)) 10 units SC HS [facility] Insulin Aspart (Novolog Mix 70/30 (70/30 Units/Ml)) 20 units SC ACB [facility] Last Admin: 06/25/18 10:25 Dose: Not Given Insulin Aspart (Novolog) 0 unit SC ACHS [facility]; Protocol Last Admin: 06/25/18 08:05 Dose: Not Given Isosorbide Mononitrate (Imdur) 60 mg PO DAILY [facility] Last Admin: 06/25/18 10:33 Dose: 60 mg - Labs Labs: 06/25/18 01:35 06/25/18 01:35 - Constitutional Appears: Non-toxic, No Acute Distress - Head Exam Head Exam: NORMAL INSPECTION - Eye Exam Eye Exam: EOMI - ENT Exam ENT Exam: Mucous Membranes Moist - Respiratory Exam Respiratory Exam: Clear to Ausculation Bilateral, NORMAL BREATHING PATTERN. absent: Rales, Rhonchi, Wheezes - Cardiovascular Exam Cardiovascular Exam: REGULAR RHYTHM, +S1, +S2 - GI/Abdominal Exam GI & Abdominal Exam: Distended, Soft, Normal Bowel Sounds. absent: Firm, Guarding, Rigid, Tenderness, Rebound - Extremities Exam Extremities Exam: absent: Pedal Edema Additional comments: healing abrasions over the lateral aspect over the legs right lower extremity: noted amputations, no pus no drainage over the foot - Neurological Exam Neurological Exam: Alert, Awake, Oriented x3 - Psychiatric Exam Psychiatric exam: Normal Affect, Normal Mood - Skin Skin Exam: Abrasion (right lower extremity), Dry, Normal Color, Warm Attending/Attestation - Attestation I have personally seen and examined this patient.: Yes I have fully participated in the care of the patient.: Yes I have reviewed all pertinent clinical information, including history, physical exam and plan: Yes Notes (Text): 1) Apnea Assessment/Plan * Initial troponin negative * Pending ABG to eval for CO2 retention and pulmonary evaluation * Chest xray: no active disease * Head CT (06/25/18); no evidence of acute sinusitis. no intracranial mass, hemorrhage, or evidence of acute infarct. 2) Sepsis with Staph aureus bacteremia Assessment/Plan * improving- suspect source is cellulitis due to R foot amputation site, ruled out endocarditis, osteomyelitis from last admission * white count improved * Workup from last admission: * TTE: EF 26%, no vegetations * INA: moderately reduced EF, no vegetations or thrombi * Blood Cx (05/27): Micrococcus species x2 * Repeat Blood Cx (05/28, 05/30, 06/03): Staph aureus x5 * Repeat Blood Cx (06/02, 06/06) no growth * Urine, stool Cx no growth * Certec scan negative * R foot XR: no evidence of osteomyelitis * LE arterial and venous studies: no significant abnormalities per vasc surgery * 3 view bone scans of b/l LEs: no evidence of osteomyelitis, possible R foot cellulitis * Punch biopsies from R foot- hyperkeratosis * PICC in [facility] 06/10 * Nafcillin 2 g IV Q4H- started 06/02/18 switched to Daptomycin last admission on discharge * ID states OK to switch to once daily daptomycin in last admission. Cubcin 500mg IVPB Q48H for 11 doses total. (4 dose is due today) 3) History of Anemia of Chronic Disease Assessment/Plan * FOBT negative on 06/05 * %: 20 saturation, TIBC: 247, Ferritin: 281, iron: 48 4) Hypertension Assessment/Plan * Coreg 25 mg PO BID * Lasix to 40 mg PO BID * Hydralazine 100mg PO BID * Imdur 60 mg PO daily * ACEI/ARB contraindicated due to EL 5) Renal insufficiency * Avoid ACEI/ARB and other nephrotoxic drugs * Renally dose meds * Maintain normotension * No IVF due to CHF * Most recent UA 06/13 negative * GN work-up negative 5) LUE superficial phlebitis * Apply warm compress x30 minutes Q6H * superficial phlebitis 6) R eye conjunctivitis-Resolved 7) Secondary hyperparathyroidism- 2/2 kidney disease * Elevated PTH (153), Low Ca, Elevated Ph * Low Vit D (<12.5) * Phoslo 667 mg PO BID * Ergocalciferol 50,000 QWK 8) History of Systolic heart failure (HFrEF), chronic- s/p AICD, does not appear to be acute exacerbation * BNP 11,300 * improved * Echo: EF 26% * Strict I's & O's * Daily weights * Fluid restriction <1200 mL/day * ASA 81 mg PO daily * Coreg 25 mg PO BID * Lasix 40 mg PO BID * Hydralazine 100 mg PO TID * Isosorbide nitrate 60 mg PO daily 9) Type 2 diabetes mellitus, chronic * A1c 7.8 * Hypoglycemia protocol * Accuchecks ACHS with ISS * Novolog 70/30 20 units SC ACB * Novolog 70/30 10 units SC HS * Novolog insulin sliding scale ACHS 10. Dyslipidemia, chronic * Choles 112, LDL<30, HDL 12, TG 320-765 (suspect 2nd value is not fasting) * held Crestor 5 mg PO QHS; because patient is on Cubcin reduce risk of myopathy 11. Elevated D-dimer (1468)- suspect 2/2 kidney disease * V/Q scan: low probability of PE 12. Transaminitis resolved 13. Hyponatremia, resolved 14. Thrombocytopenia, resolved 15. Ppx: * Heparin 5000 units subq12
[2018-06-25 11:20] LABS: ABG ALLEN TEST POS; ARTERIAL BLOOD GAS HCO3 19.4 mmol/L (21-28); ARTERIAL BLOOD GAS O2 SAT 91.2 % (95-98); ARTERIAL BLOOD GAS PCO2 35 mm/Hg (35-45); ARTERIAL BLOOD GAS PH 7.33 (7.35-7.45); ARTERIAL BLOOD GAS PO2 54 mm/Hg (80-100); ARTERIAL BLOOD GAS TCO2 19.6 mmol/L (22-28)
[2018-06-25 11:24] LABS: BASO # 0.1 K/uL (0.0-0.2); BASO % 1.7 % (0.0-2.0); EOS # 0.1 K/uL (0.0-0.7); EOS % 3.3 % (0.0-4.0); HEMOGLOBIN 9.5 g/dL (12.0-18.0); LYMPH # 1.2 K/uL (1.0-4.3); LYMPH % 34.2 % (20.0-40.0); MEAN CORPUSCULAR HEMOGLOBIN 31.2 pg (27.0-31.0); MEAN CORPUSCULAR HGB CONC 33.2 g/dL (33.0-37.0); MEAN PLATELET VOLUME 9.3 fL (7.2-11.7); MONO # 0.4 K/uL (0.0-0.8); MONO % 12.1 % (0.0-10.0); NEUT # 1.7 K/uL (1.8-7.0); NEUT % 48.7 % (50.0-75.0); NRBC % 0.1 % (0.0-2.0); RBC 3.06 Mil/uL (4.40-5.90); RED CELL DISTRIBUTION WIDTH 16.5 % (11.5-14.5); WHITE BLOOD COUNT 3.4 K/uL (4.8-10.8)
[2018-06-25 11:34] LABS: ALB/GLOB RATIO 0.9 (1.0-2.1); ALBUMIN 3.7 g/dL (3.5-5.0); ALT/SGPT 52 U/L (21-72); AST/SGOT 32 U/L (17-59); BLOOD UREA NITROGEN 47 mg/dL (9-20); CALCIUM 8.6 mg/dl (8.6-10.4); GFR NON-AFRICAN AMERICAN 29
[2018-06-25 11:44] LABS: CK-MB 2.02 ng/mL (0.0-3.38)
[2018-06-25] MEDS ORDERED: Aritificial Tears (15ml) OU PRN (15:21)
--- NOTE | 2018-06-25 17:02 | CP.PCM.CON ---
History of Present Illness - History of Present Illness History of Present Illness: reason for consultation: apnea/snoring 48-year-old male with history off insulin-dependent diabetes, hypertension, hypercholesterolemia, status post AICD placement, staph bacteremia during last admission and being treated with antibiotics presented to emergency room after witnessed apneic episode last night associated with snoring. PMH: IDDM s/p toe amputations, HTN, HLD, HFrEF s/p biventricular AICD placement Med: per MAR. Patient admits noncompliance due to cost All: NKDA PSxHx: R toe amputation x 3, appendicitis, left 5th toe partial amputation, AICD placement FamHx: DM on both sides, MGF - [place] SocHx: Lives with and children. Worked as a [employer]. Denies current or former use of tobacco and illicit drug use, occasional ETOH use. Review of Systems - Review of Systems All systems: reviewed and no additional remarkable complaints except (complaining of snoring and feel tired and sleepy during the daytime) Past Patient History - Infectious Disease Hx of Infectious Diseases: None - Tetanus Immunizations Tetanus Immunization: Unknown - Past Medical History & Family History Past Medical History?: Yes - Past Social History Smoking Status: Never Smoked Alcohol: Social Drugs: Denies Home Situation {Lives}: With Family - CARDIAC Hx Congestive Heart Failure: Yes Hx Hypercholesterolemia: Yes Hx Hypertension: Yes Hx Pacemaker: Yes (Lt. sub clavian) - PULMONARY Hx Respiratory Disorders: No - NEUROLOGICAL Hx Neurological Disorder: No - HEENT Hx HEENT Problems: No Hx Cataracts: Yes - RENAL Hx Chronic Kidney Disease: No - ENDOCRINE/METABOLIC Hx Diabetes Mellitus Type 1: Yes - HEMATOLOGICAL/ONCOLOGICAL Hx Blood Disorders: No - INTEGUMENTARY Hx Dermatological Problems: No - MUSCULOSKELETAL/RHEUMATOLOGICAL Hx Musculoskeletal Disorders: No Hx Falls: Yes - GASTROINTESTINAL Hx Gastrointestinal Disorders: No - GENITOURINARY/GYNECOLOGICAL Hx Genitourinary Disorders: No - PSYCHIATRIC Hx Substance Use: No - SURGICAL HISTORY Hx Surgeries: Yes Other/Comment: Right 3 digits amputation foot - ANESTHESIA Hx Anesthesia: Yes Hx Anesthesia Reactions: No Hx Malignant Hyperthermia: No Meds Allergies/Adverse Reactions: Allergies Allergy/AdvReac Type Severity Reaction Status Date / Time No Known Allergies Allergy Verified 05/27/18 12:15 - Medications Medications: Current Medications Amlodipine Besylate (Norvasc) 10 mg PO DAILY [facility] Last Admin: 06/25/18 10:33 Dose: 10 mg Artificial Tears (Artificial Tears) 0.05 ml OU Q2H PRN PRN Reason: Dry eyes Aspirin (Aspirin Chewable) 81 mg PO DAILY [facility] Last Admin: 06/25/18 10:33 Dose: 81 mg Calcium Acetate (Phoslo) 667 mg PO BIDCC [facility] Last Admin: 06/25/18 10:33 Dose: 667 mg Carvedilol (Coreg) 25 mg PO BID [facility] Last Admin: 06/25/18 10:54 Dose: 25 mg Famotidine (Pepcid) 20 mg PO DAILY [facility] Last Admin: 06/25/18 10:33 Dose: 20 mg Fluticasone Propionate (Flonase) 1 spr JAREN DAILY [facility] Furosemide (Lasix) 40 mg PO BID [facility] Last Admin: 06/25/18 10:53 Dose: 40 mg Heparin Sodium (Porcine) (Heparin) 5,000 units SC Q12 [facility] Last Admin: 06/25/18 10:34 Dose: 5,000 units Hydralazine HCl (Apresoline) 100 mg PO BID [facility] Last Admin: 06/25/18 10:33 Dose: 100 mg Nafcillin Sodium 2 gm/ Sodium (Chloride) 250 mls @ 250 mls/hr IVPB Q6H [facility]; Protocol Insulin Aspart (Novolog Mix 70/30 (70/30 Units/Ml)) 10 units SC HS [facility] Insulin Aspart (Novolog Mix 70/30 (70/30 Units/Ml)) 20 units SC ACB [facility] Last Admin: 06/25/18 10:25 Dose: Not Given Insulin Aspart (Novolog) 0 unit SC ACHS [facility]; Protocol Last Admin: 06/25/18 12:39 Dose: 2 u Isosorbide Mononitrate (Imdur) 60 mg PO DAILY [facility] Last Admin: 06/25/18 10:33 Dose: 60 mg Physical Exam - Head Exam Head Exam: ATRAUMATIC, NORMOCEPHALIC - ENT Exam ENT Exam: Mucous Membranes Moist - Neck Exam Neck exam: Positive for: Normal Inspection - Respiratory Exam Respiratory Exam: Clear to Auscultation Bilateral - Cardiovascular Exam Cardiovascular Exam: REGULAR RHYTHM - GI/Abdominal Exam GI & Abdominal Exam: Normal Bowel Sounds, Soft - Extremities Exam Extremities exam: Positive for: normal inspection - Neurological Exam Neurological exam: Alert, Oriented x3 Results - Vital Signs Recent Vital Signs: Last Vital Signs Temp 98.4 F 06/25/18 08:27 Pulse 64 06/25/18 08:27 Resp 20 06/25/18 08:27 BP 128/71 06/25/18 10:54 Pulse Ox 95 06/25/18 11:19 - Labs Result Diagrams: 06/25/18 11:09 06/25/18 11:09 Labs: Laboratory Results - last 24 hr 06/25/18 06/25/18 06/25/18 01:11 01:35 01:35 WBC 4.0 L RBC 2.99 L Hgb 9.4 L Hct 28.2 L MCV 94.2 H MCH 31.4 H MCHC 33.3 RDW 16.7 H Plt Count 170 MPV 9.2 Neut % (Auto) 52.5 Lymph % (Auto) 31.5 Wood % (Auto) 12.2 H Eos % (Auto) 2.5 Baso % (Auto) 1.3 Neut # (Auto) 2.1 Lymph # (Auto) 1.3 Wood # (Auto) 0.5 Eos # (Auto) 0.1 Baso # (Auto) 0.1 D-Dimer, Quantitative 356 H Puncture Site pCO2 pO2 HCO3 ABG pH ABG Total CO2 ABG O2 Saturation ABG Base Excess Franco Test ABG Potassium A-a O2 Difference Respiratory Index Glucose Lactate FiO2 Sodium Potassium Chloride Carbon Dioxide Anion Gap BUN Creatinine Est GFR ( Amer) Est GFR (Non-Af Amer) POC Glucose (mg/dL) 183 H Random Glucose Calcium Phosphorus Magnesium Total Bilirubin AST ALT Alkaline Phosphatase Total Creatine Kinase CK-MB (Mass) Troponin I NT-Pro-B Natriuret Pep Total Protein Albumin Globulin Albumin/Globulin Ratio Total T3 TSH 3rd Generation Arterial Blood Potassium 06/25/18 06/25/18 06/25/18 01:35 06:32 11:09 WBC 3.4 L RBC 3.06 L Hgb 9.5 L Hct 28.8 L MCV 94.0 MCH 31.2 H MCHC 33.2 RDW 16.5 H Plt Count 175 MPV 9.3 Neut % (Auto) 48.7 L Lymph % (Auto) 34.2 Wood % (Auto) 12.1 H Eos % (Auto) 3.3 Baso % (Auto) 1.7 Neut # (Auto) 1.7 L Lymph # (Auto) 1.2 Wood # (Auto) 0.4 Eos # (Auto) 0.1 Baso # (Auto) 0.1 D-Dimer, Quantitative Puncture Site pCO2 pO2 HCO3 ABG pH ABG Total CO2 ABG O2 Saturation ABG Base Excess Franco Test ABG Potassium A-a O2 Difference Respiratory Index Glucose Lactate FiO2 Sodium 133 Potassium 5.0 Chloride 104 Carbon Dioxide 18 L Anion Gap 16 BUN 43 H Creatinine 2.5 H Est GFR ( Amer) 33 Est GFR (Non-Af Amer) 27 POC Glucose (mg/dL) 146 H Random Glucose 168 H D Calcium 8.5 L Phosphorus 4.8 H Magnesium 2.0 Total Bilirubin 0.5 AST 36 ALT 58 Alkaline Phosphatase 100 Total Creatine Kinase CK-MB (Mass) Troponin I < 0.0120 NT-Pro-B Natriuret Pep 4830 H Total Protein 7.8 Albumin 3.7 Globulin 4.0 H Albumin/Globulin Ratio 0.9 L Total T3 0.835 L TSH 3rd Generation 2.19 Arterial Blood Potassium 06/25/18 06/25/18 06/25/18 11:09 11:16 11:28 WBC RBC Hgb Hct MCV MCH MCHC RDW Plt Count MPV Neut % (Auto) Lymph % (Auto) Wood % (Auto) Eos % (Auto) Baso % (Auto) Neut # (Auto) Lymph # (Auto) Wood # (Auto) Eos # (Auto) Baso # (Auto) D-Dimer, Quantitative Puncture Site Lra pCO2 35 pO2 54 L HCO3 19.4 L ABG pH 7.33 L ABG Total CO2 19.6 L ABG O2 Saturation 91.2 L ABG Base Excess -6.6 L Franco Test Pos ABG Potassium 4.6 A-a O2 Difference 52.0 Respiratory Index 1.0 Glucose 175 H Lactate 0.6 L FiO2 21.0 Sodium 133 134.0 Potassium 4.7 Chloride 106 107.0 Carbon Dioxide 17 L Anion Gap 14 BUN 47 H Creatinine 2.4 H Est GFR ( Amer) 35 Est GFR (Non-Af Amer) 29 POC Glucose (mg/dL) 171 H Random Glucose 191 H Calcium 8.6 Phosphorus 4.7 H Magnesium 1.9 Total Bilirubin 0.5 AST 32 ALT 52 Alkaline Phosphatase 95 Total Creatine Kinase 74 CK-MB (Mass) 2.02 Troponin I < 0.0120 NT-Pro-B Natriuret Pep Total Protein 7.8 Albumin 3.7 Globulin 4.1 H Albumin/Globulin Ratio 0.9 L Total T3 TSH 3rd Generation Arterial Blood Potassium 4.6 Assessment & Plan (1) Apnea, sleep Status: Acute Comment: rule out obstructive sleep apnea. Sleep study as outpatient. CPAP of 10 cm at night. Continue present treatment
[2018-06-25 20:01] LABS: CK-MB 1.84 ng/mL (0.0-3.38)
[2018-06-25] MEDS ORDERED: (Novolog Mix 70/30) Insulin Aspart/Insulin Aspar 100 units/ml SC SCH (22:00)
[2018-06-26 08:20] LABS: BASO # 0.1 K/uL (0.0-0.2); BASO % 1.5 % (0.0-2.0); EOS # 0.2 K/uL (0.0-0.7); EOS % 5.4 % (0.0-4.0); HEMOGLOBIN 9.4 g/dL (12.0-18.0); LYMPH # 1.2 K/uL (1.0-4.3); LYMPH % 28.7 % (20.0-40.0); MEAN CELL VOLUME 94.1 fL (80.0-94.0); MEAN CORPUSCULAR HEMOGLOBIN 31.1 pg (27.0-31.0); MEAN CORPUSCULAR HGB CONC 33.1 g/dL (33.0-37.0); MEAN PLATELET VOLUME 8.9 fL (7.2-11.7); MONO # 0.4 K/uL (0.0-0.8); MONO % 8.6 % (0.0-10.0); NEUT # 2.4 K/uL (1.8-7.0); NEUT % 55.8 % (50.0-75.0); RBC 3.01 Mil/uL (4.40-5.90); RED CELL DISTRIBUTION WIDTH 16.4 % (11.5-14.5); WHITE BLOOD COUNT 4.3 K/uL (4.8-10.8)
[2018-06-26] MEDS: Fluticasone Nasal 50 mcg/Spray NAS SCH ×2 (08:20→14:45)
[2018-06-26] MEDS: (Novolog) Insulin Aspart, Recombinant 100 u/ml 10 ml vial SC SCH ×2 (08:21→14:21)
[2018-06-26 08:42] LABS: ALB/GLOB RATIO 0.8 (1.0-2.1); ALBUMIN 3.3 g/dL (3.5-5.0); CALCIUM 8.4 mg/dl (8.6-10.4)
[2018-06-26] MEDS: (Novolog Mix 70/30) Insulin Aspart/Insulin Aspar 100 units/ml SC SCH (08:43)
[2018-06-26 09:36] LABS: ABG ALLEN TEST POS; ARTERIAL BLOOD GAS HCO3 20.2 mmol/L (21-28); ARTERIAL BLOOD GAS O2 SAT 96.1 % (95-98); ARTERIAL BLOOD GAS PCO2 33 mm/Hg (35-45); ARTERIAL BLOOD GAS PH 7.36 (7.35-7.45); ARTERIAL BLOOD GAS PO2 66 mm/Hg (80-100); ARTERIAL BLOOD GAS TCO2 19.6 mmol/L (22-28)
--- NOTE | 2018-06-26 14:55 | CP.PCM.CON ---
History of Present Illness - History of Present Illness History of Present Illness: 48-year-old male admitted with exac of NOE- family noted AMS during sleep- syncope? denies fever chills Has PICC line in place for persistent MSSA bacteremia last admission - echo neg for endocarditis PMH: IDDM s/p toe amputations, HTN, HLD, HFrEF s/p biventricular AICD placement Med: per SEP. Patient admits noncompliance due to cost All: NKDA PSxHx: R toe amputation x 3, appendicitis, left 5th toe partial amputation, AICD placement FamHx: DM on both sides, MGF - [place] SocHx: Lives with and children. 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 Denies current or former use of tobacco and illicit drug use, occasional ETOH use. Review of Systems - Review of Systems All systems: reviewed and no additional remarkable complaints except - Constitutional Constitutional: As Per HPI - EENT Eyes: absent: As Per HPI, Blind Spots, Blurred Vision, Change in Vision, Decreased Night Vision, Diplopia, Discharge, Dry Eye, Exophthalmos, Floaters, Irritation, Itchy Eyes, Loss of Peripheral Vision, Pain, Photophobia, Requires Corrective Lenses, Sees Flashes, Spots in Vision, Tunnel Vision, Other Visual Disturbances, Loss of Vision, Other Ears: absent: As Per HPI, Decreased Hearing, Ear Discharge, Ear Pain, Tinnitus, Abnormal Hearing, Disequilibrium, Dizziness, Other Nose/Mouth/Throat: absent: As Per HPI, Epistaxis, Nasal Congestion, Nasal Discharge, Nasal Obstruction, Nasal Trauma, Nose Pain, Post Nasal Drip, Sinus Pain, Sinus Pressure, Bleeding Gums, Change in Voice, Dental Pain, Dry Mouth, Dysphagia, Halitosis, Hoarsness, Lip Swelling, Mouth Lesions, Mouth Pain, Odynophagia, Sore Throat, Throat Swelling, Tongue Swelling, Facial Pain, Neck Pain, Neck Mass, Other - Cardiovascular Cardiovascular: As Per HPI - Respiratory Respiratory: As Per HPI - Gastrointestinal Gastrointestinal: absent: As Per HPI, Abdominal Pain, Belching, Bloating, Change in Bowel Habits, Change in Stool Character, Coffee Ground Emesis, Constipation, Cramping, Diarrhea, Dyspepsia, Dysphagia, Early Satiety, Excessive Flatus, Fecal Incontinence, Heartburn, Hematemesis, Hematochezia, Loose Stools, Melena, Nausea, Odynophagia, Temesmus, Vomiting, Other - Genitourinary Genitourinary: absent: As Per HPI, Change in Urinary Stream, Difficulty Urinating, Dysuria, Flank Pain, Hematuria, Pyuria, Nocturia, Urinary Incontinence, Urinary Frequency, Urinary Hesitance, Urinary Urgency, Voiding Freq/Small Amts, Freq UTI, Hx Renal/Bladder Calculi, Hx /Renal Surgery, Bladder Distension, Other - Musculoskeletal Musculoskeletal: As Per HPI - Integumentary Integumentary: As Per HPI - Neurological Neurological: absent: As Per HPI, Abnormal Gait, Abnormal Hearing, Abnormal Movements, Abnormal Speech, Behavioral Changes, Burning Sensations, Confusion, Convulsions, Disequilibrium, Dizziness, Numbness, Focal Weakness, Frequent Falls, Headaches, Lack of Coordination, Loss of Vision, Memory Loss, Paresthesias, Radicular Pain, Restless Legs, Sensory Deficit, Syncope, Tingling, Tremor, Vertigo, Weakness, Other Visual Disturbances, Other - Psychiatric Psychiatric: absent: As Per HPI, Abnormal Sleep Pattern, Anhedonia, Anxiety, Auditory Hallucinations, Behavioral Changes, Change in Appetite, Change in Libido, Confusion, Depression, Difficulty Concentrating, Hallucinations, Homicidal Ideation, Hopelessness, Irritability, Memory Loss, Mood Swings, Panic Attacks, Paranoia, Suicidal Ideation, Visual Hallucinations, Tactile Hallucinations, Other - Endocrine Endocrine: absent: As Per HPI, Change in Body Appearance, Change in Libido, Cold Intolorance, Deepening of Voice, Excessive Sweating, Fatigue, Flushing, Heat Intolorance, Increase in Ring/Shoe/Hat Size, Palpitations, Polydipsia, Polyphagia, Polyuria, Other - Hematologic/Lymphatic Hematologic: absent: As Per HPI, Easy Bleeding, Easy Bruising, Lymphadenopathy, Other Past Patient History - Infectious Disease Hx of Infectious Diseases: None - Tetanus Immunizations Tetanus Immunization: Unknown - Past Medical History & Family History Past Medical History?: Yes - Past Social History Smoking Status: Never Smoked Alcohol: Social Drugs: Denies Home Situation {Lives}: With Family - CARDIAC Hx Congestive Heart Failure: Yes Hx Hypercholesterolemia: Yes Hx Hypertension: Yes - PULMONARY Hx Respiratory Disorders: No - NEUROLOGICAL Hx Neurological Disorder: No - HEENT Hx HEENT Problems: No Hx Cataracts: Yes - RENAL Hx Chronic Kidney Disease: No - ENDOCRINE/METABOLIC Hx Diabetes Mellitus Type 1: Yes - HEMATOLOGICAL/ONCOLOGICAL Hx Blood Disorders: No - INTEGUMENTARY Hx Dermatological Problems: No - MUSCULOSKELETAL/RHEUMATOLOGICAL Hx Musculoskeletal Disorders: No Hx Falls: Yes - GASTROINTESTINAL Hx Gastrointestinal Disorders: No - GENITOURINARY/GYNECOLOGICAL Hx Genitourinary Disorders: No - PSYCHIATRIC Hx Substance Use: No - SURGICAL HISTORY Hx Surgeries: Yes Other/Comment: Right 3 digits amputation foot - ANESTHESIA Hx Anesthesia: Yes Hx Anesthesia Reactions: No Hx Malignant Hyperthermia: No Meds Allergies/Adverse Reactions: Allergies Allergy/AdvReac Type Severity Reaction Status Date / Time No Known Allergies Allergy Verified 05/27/18 12:15 - Medications Medications: Current Medications Amlodipine Besylate (Norvasc) 10 mg PO DAILY [facility] Last Admin: 06/26/18 10:28 Dose: 10 mg Artificial Tears (Artificial Tears) 0.05 ml OU Q2H PRN PRN Reason: Dry eyes Last Admin: 06/25/18 18:54 Dose: 1 drop Aspirin (Aspirin Chewable) 81 mg PO DAILY [facility] Last Admin: 06/26/18 10:28 Dose: 81 mg [facility] Last Admin: 06/26/18 10:29 Dose: 667 mg Carvedilol (Coreg) 25 mg PO BID [facility] Last Admin: 06/26/18 10:28 Dose: 25 mg Famotidine (Pepcid) 20 mg PO DAILY [facility] Last Admin: 06/26/18 10:28 Dose: 20 mg Fluticasone Propionate (Flonase) 1 spr JAREN DAILY [facility] Last Admin: 06/26/18 14:45 Dose: 1 spr Furosemide (Lasix) 40 mg PO BID [facility] Last Admin: 06/26/18 10:29 Dose: 40 mg Heparin Sodium (Porcine) (Heparin) 5,000 units SC Q12 [facility] Last Admin: 06/26/18 14:20 Dose: 5,000 units Hydralazine HCl (Apresoline) 100 mg PO BID [facility] Last Admin: 06/26/18 10:28 Dose: 100 mg Nafcillin Sodium 2 gm/ Sodium (Chloride) 250 mls @ 250 mls/hr IVPB Q6H [facility]; Protocol Last Admin: 06/26/18 10:29 Dose: 250 mls/hr Insulin Aspart (Novolog Mix 70/30 (70/30 Units/Ml)) 10 units SC [facility] Last Admin: 06/25/18 21:42 Dose: 10 unit Insulin Aspart (Novolog Mix 70/30 (70/30 Units/Ml)) 20 units SC [facility] Last Admin: 06/26/18 08:43 Dose: 20 u Insulin Aspart (Novolog) 0 unit SC ACHS [facility]; Protocol Last Admin: 06/26/18 14:21 Dose: Not Given Isosorbide Mononitrate (Imdur) 60 mg PO DAILY [facility] Last Admin: 06/26/18 10:28 Dose: 60 mg Physical Exam - Constitutional Appears: Non-toxic - Head Exam Head Exam: NORMOCEPHALIC - Eye Exam Eye Exam: absent: Scleral icterus - ENT Exam ENT Exam: Mucous Membranes Dry - Neck Exam Neck exam: Negative for: Lymphadenopathy - Respiratory Exam Respiratory Exam: Decreased Breath Sounds - Cardiovascular Exam Cardiovascular Exam: REGULAR RHYTHM - GI/Abdominal Exam GI & Abdominal Exam: Diminished Bowel Sounds, Soft - Rectal Exam Rectal Exam: Deferred - Exam Exam: NORMAL INSPECTION - Extremities Exam Additional comments: missing digits 3 4 5 right foot - Back Exam Back exam: absent: CVA tenderness (L), CVA tenderness (R) - Neurological Exam Neurological exam: Alert, CN II-XII Intact, Oriented x3, Reflexes Normal - Psychiatric Exam Psychiatric exam: Depressed - Skin Skin Exam: Dry Results - Vital Signs Recent Vital Signs: Last Vital Signs Temp 97.5 F L 06/26/18 07:52 Pulse 70 06/26/18 12:13 Resp 20 06/26/18 07:52 BP 151/82 H 06/26/18 10:29 Pulse Ox 96 06/26/18 14:14 - Labs Result Diagrams: 06/26/18 08:09 06/26/18 08:09 Labs: Laboratory Results - last 24 hr 06/25/18 06/25/18 06/25/18 17:05 19:23 21:06 WBC RBC Hgb Hct MCV MCH MCHC RDW Plt Count MPV Neut % (Auto) Lymph % (Auto) Hayes % (Auto) Eos % (Auto) Baso % (Auto) Neut # (Auto) Lymph # (Auto) Hayes # (Auto) Eos # (Auto) Baso # (Auto) Puncture Site pCO2 pO2 HCO3 ABG pH ABG Total CO2 ABG O2 Saturation ABG Base Excess Franco Test ABG Potassium A-a O2 Difference Respiratory Index Glucose Lactate FiO2 Sodium Potassium Chloride Carbon Dioxide Anion Gap BUN Creatinine Est GFR ( Amer) Est GFR (Non-Af Amer) POC Glucose (mg/dL) 142 H 160 H Random Glucose Calcium Total Bilirubin AST ALT Alkaline Phosphatase Total Creatine Kinase 72 CK-MB (Mass) 1.84 Troponin I < 0.0120 Total Protein Albumin Globulin Albumin/Globulin Ratio Arterial Blood Potassium 06/26/18 06/26/18 06/26/18 06:32 08:09 08:09 WBC 4.3 L RBC 3.01 L Hgb 9.4 L Hct 28.3 L MCV 94.1 H MCH 31.1 H MCHC 33.1 RDW 16.4 H Plt Count 185 MPV 8.9 Neut % (Auto) 55.8 Lymph % (Auto) 28.7 Hayes % (Auto) 8.6 Eos % (Auto) 5.4 H Baso % (Auto) 1.5 Neut # (Auto) 2.4 Lymph # (Auto) 1.2 Hayes # (Auto) 0.4 Eos # (Auto) 0.2 Baso # (Auto) 0.1 Puncture Site pCO2 pO2 HCO3 ABG pH ABG Total CO2 ABG O2 Saturation ABG Base Excess Franco Test ABG Potassium A-a O2 Difference Respiratory Index Glucose Lactate FiO2 Sodium 139 Potassium 4.8 Chloride 112 H Carbon Dioxide 18 L Anion Gap 14 BUN 52 H Creatinine 2.6 H Est GFR ( Amer) 32 Est GFR (Non-Af Amer) 26 POC Glucose (mg/dL) 143 H Random Glucose 165 H Calcium 8.4 L Total Bilirubin 0.6 AST 26 ALT 44 Alkaline Phosphatase 93 Total Creatine Kinase CK-MB (Mass) Troponin I Total Protein 7.4 Albumin 3.3 L Globulin 4.1 H Albumin/Globulin Ratio 0.8 L Arterial Blood Potassium 06/26/18 06/26/18 09:33 11:22 WBC RBC Hgb Hct MCV MCH MCHC RDW Plt Count MPV Neut % (Auto) Lymph % (Auto) Hayes % (Auto) Eos % (Auto) Baso % (Auto) Neut # (Auto) Lymph # (Auto) Hayes # (Auto) Eos # (Auto) Baso # (Auto) Puncture Site Lra pCO2 33 L pO2 66 L HCO3 20.2 L ABG pH 7.36 ABG Total CO2 19.6 L ABG O2 Saturation 96.1 ABG Base Excess -5.9 L Franco Test Pos ABG Potassium 4.3 A-a O2 Difference 42.0 Respiratory Index 0.6 Glucose 189 H Lactate 0.9 FiO2 21.0 Sodium 139.0 Potassium Chloride 112.0 H Carbon Dioxide Anion Gap BUN Creatinine Est GFR ( Amer) Est GFR (Non-Af Amer) POC Glucose (mg/dL) 111 H Random Glucose Calcium Total Bilirubin AST ALT Alkaline Phosphatase Total Creatine Kinase CK-MB (Mass) Troponin I Total Protein Albumin Globulin Albumin/Globulin Ratio Arterial Blood Potassium 4.3 Assessment & Plan (1) Apnea, sleep Status: Acute (2) Syncope Status: Acute - Assessment and Plan (Free Text) Assessment: hx of persistent bacteremia to complete 6 week course iv rx sleep eval Dr Wesley
--- NOTE | 2018-06-26 15:58 | CP.PCM.DIS ---
<Ronak Peguero - Last Filed: 06/26/18 15:55> Provider - Provider Date of Admission: 06/25/18 03:36 Attending physician: Rick Fairchild MD Primary care physician: JODY @ [facility] Consults: 06/25/18 05:06 Pulmonology Consult Routine Comment: Consulting Provider: Marko Wesley Consulting Physician: Marko Wesley Reason for Consult: apneic episode, sleep study vs CPAP? 06/25/18 05:07 Infectious Disease Consult Routine Comment: Consulting Provider: Carlos Parks Consulting Physician: Carlos Parks Reason for Consult: bacteremia, ongoing abx infusion Time Spent in preparation of Discharge (in minutes): 45 Hospital Course - Lab Results Lab Results: Most Recent Lab Values WBC 4.3 K/uL (4.8-10.8) L 06/26/18 08:09 RBC 3.01 Mil/uL (4.40-5.90) L 06/26/18 08:09 Hgb 9.4 g/dL (12.0-18.0) L 06/26/18 08:09 Hct 28.3 % (35.0-51.0) L 06/26/18 08:09 MCV 94.1 fL (80.0-94.0) H 06/26/18 08:09 MCH 31.1 pg (27.0-31.0) H 06/26/18 08:09 MCHC 33.1 g/dL (33.0-37.0) 06/26/18 08:09 RDW 16.4 % (11.5-14.5) H 06/26/18 08:09 Plt Count 185 K/uL (130-400) 06/26/18 08:09 MPV 8.9 fL (7.2-11.7) 06/26/18 08:09 Neut % (Auto) 55.8 % (50.0-75.0) 06/26/18 08:09 Lymph % (Auto) 28.7 % (20.0-40.0) 06/26/18 08:09 Placer % (Auto) 8.6 % (0.0-10.0) 06/26/18 08:09 Eos % (Auto) 5.4 % (0.0-4.0) H 06/26/18 08:09 Baso % (Auto) 1.5 % (0.0-2.0) 06/26/18 08:09 Neut # (Auto) 2.4 K/uL (1.8-7.0) 06/26/18 08:09 Lymph # (Auto) 1.2 K/uL (1.0-4.3) 06/26/18 08:09 Placer # (Auto) 0.4 K/uL (0.0-0.8) 06/26/18 08:09 Eos # (Auto) 0.2 K/uL (0.0-0.7) 06/26/18 08:09 Baso # (Auto) 0.1 K/uL (0.0-0.2) 06/26/18 08:09 D-Dimer, Quantitative 356 ng/mlDDU (0-243) H 06/25/18 01:35 Puncture Site Lra 06/26/18 09:33 pCO2 33 mm/Hg (35-45) L 06/26/18 09:33 pO2 66 mm/Hg (80-100) L 06/26/18 09:33 HCO3 20.2 mmol/L (21-28) L 06/26/18 09:33 ABG pH 7.36 (7.35-7.45) 06/26/18 09:33 ABG Total CO2 19.6 mmol/L (22-28) L 06/26/18 09:33 ABG O2 Saturation 96.1 % (95-98) 06/26/18 09:33 ABG Base Excess -5.9 mmol/L (-2.0-3.0) L 06/26/18 09:33 Franco Test Pos 06/26/18 09:33 ABG Potassium 4.3 mmol/L (3.6-5.2) 06/26/18 09:33 A-a O2 Difference 42.0 mm/Hg 06/26/18 09:33 Respiratory Index 0.6 06/26/18 09:33 Sodium 139.0 mmol/l (132-148) 06/26/18 09:33 Chloride 112.0 mmol/L (98-107) H 06/26/18 09:33 Glucose 189 mg/dl (75-110) H 06/26/18 09:33 Lactate 0.9 mmol/L (0.7-2.1) 06/26/18 09:33 FiO2 21.0 % 06/26/18 09:33 Sodium 139 mmol/L (132-148) 06/26/18 08:09 Potassium 4.8 mmol/L (3.6-5.2) 06/26/18 08:09 Chloride 112 mmol/L (98-107) H 06/26/18 08:09 Carbon Dioxide 18 mmol/L (22-30) L 06/26/18 08:09 Anion Gap 14 (10-20) 06/26/18 08:09 BUN 52 mg/dL (9-20) H 06/26/18 08:09 Creatinine 2.6 mg/dL (0.8-1.5) H 06/26/18 08:09 Est GFR ( Amer) 32 06/26/18 08:09 Est GFR (Non-Af Amer) 26 06/26/18 08:09 POC Glucose (mg/dL) 105 mg/dL (65-110) 06/26/18 15:11 Random Glucose 165 mg/dL (75-110) H 06/26/18 08:09 Calcium 8.4 mg/dl (8.6-10.4) L 06/26/18 08:09 Phosphorus 4.7 mg/dL (2.5-4.5) H 06/25/18 11:09 Magnesium 1.9 mg/dL (1.6-2.3) 06/25/18 11:09 Total Bilirubin 0.6 mg/dL (0.2-1.3) 06/26/18 08:09 AST 26 U/L (17-59) 06/26/18 08:09 ALT 44 U/L (21-72) 06/26/18 08:09 Alkaline Phosphatase 93 U/L (38-126) 06/26/18 08:09 Total Creatine Kinase 72 U/L (55-170) 06/25/18 19:23 CK-MB (Mass) 1.84 ng/mL (0.0-3.38) 06/25/18 19:23 Troponin I < 0.0120 ng/mL (0.00-0.120) 06/25/18 19:23 NT-Pro-B Natriuret Pep 4830 pg/mL (0-900) H 06/25/18 01:35 Total Protein 7.4 g/dL (6.3-8.3) 06/26/18 08:09 Albumin 3.3 g/dL (3.5-5.0) L 06/26/18 08:09 Globulin 4.1 gm/dL (2.2-3.9) H 06/26/18 08:09 Albumin/Globulin Ratio 0.8 (1.0-2.1) L 06/26/18 08:09 Total T3 0.835 nmol/L (1.49-2.60) L 06/25/18 01:35 TSH 3rd Generation 2.19 mIU/L (0.46-4.68) 06/25/18 01:35 Arterial Blood Potassium 4.3 mmol/L (3.6-5.2) 06/26/18 09:33 - Hospital Course Hospital Course: The patient was admitted under obversation for an apneic episode while sleeping which quickly resolved He had a 6 minute walking test which did not show any desaturation which means that the patient does not need home o2 The patient needs to f/u with Dr. Wesley (pulmonology) to complete a sleep study; a prescription was given with information. Patient did not use CPAP here in the hospital. The patient also needs to f/u with ENT (Dr Bach) for chronic sinusitis; prescription was given with information. The patient had a workup for ACS; it was negative ABG was performed which showed low O2, but no Co2 retention The patient is stable for d/c as per Dr. King and will need to continue with outpatient antibiotics at the [facility] for bacteremia Ronak MandelExton PGY3 Discharge Exam - Head Exam Head Exam: NORMOCEPHALIC - Eye Exam Eye Exam: EOMI Pupil Exam: PERRL - ENT Exam ENT Exam: Mucous Membranes Moist - Neck Exam Neck exam: Full Rom - Respiratory Exam Respiratory Exam: Clear to PA & Lateral. absent: Rales, Rhonchi, Wheezes - Cardiovascular Exam Cardiovascular Exam: REGULAR RHYTHM, +S1, +S2 - GI/Abdominal Exam GI & Abdominal Exam: Normal Bowel Sounds, Soft, Unremarkable. absent: Tenderness - Extremities Exam Extremities exam: full ROM - Back Exam Back exam: NORMAL INSPECTION. absent: CVA tenderness (L), CVA tenderness (R) - Neurological Exam Neurological exam: Alert, CN II-XII Intact, Normal Gait, Oriented x3 - Psychiatric Exam Psychiatric exam: Normal Affect - Skin Skin Exam: Warm Discharge Plan - Follow Up Plan Condition: FAIR Disposition: HOME/ ROUTINE Patient education suggested?: Yes Instructions: Sleep Apnea, Obstructive Sleep Apnea, Adult (DC), What Is a Sleep Study? Additional Instructions: Dr. King adams dado permiso para tener madhu hoy 1) Fernando louisa walter con Dr. Wesley, Pulmonology, para hacer un estudio de dormir. 2) tmb necesitas hacer louisa walter con Dr. Bach para tu sinusitis 3) Continue jude los antibioticos del maria teresa hasta que termines 4) Astorga cass! Please make sure to make an appointment with Dr. Wesley and Dr. Bach (pulmonology and ENT) continue to take your antibiotics through the infusion center as necessary Referrals: Marko Wesley MD [Staff Provider] - Carlos Parks MD [Staff Provider] - <Rosetta King V - Last Filed: 06/26/18 17:34> Provider - Provider Date of Admission: 06/25/18 03:36 Attending physician: Rick Fairchild MD Consults: 06/25/18 05:06 Pulmonology Consult Routine Comment: Consulting Provider: Marko Wesley Consulting Physician: Marko Wesley Reason for Consult: apneic episode, sleep study vs CPAP? 06/25/18 05:07 Infectious Disease Consult Routine Comment: Consulting Provider: Carlos Parks Consulting Physician: Carlos Parks Reason for Consult: bacteremia, ongoing abx infusion Hospital Course - Lab Results Lab Results: Most Recent Lab Values WBC 4.3 K/uL (4.8-10.8) L 06/26/18 08:09 RBC 3.01 Mil/uL (4.40-5.90) L 06/26/18 08:09 Hgb 9.4 g/dL (12.0-18.0) L 06/26/18 08:09 Hct 28.3 % (35.0-51.0) L 06/26/18 08:09 MCV 94.1 fL (80.0-94.0) H 06/26/18 08:09 MCH 31.1 pg (27.0-31.0) H 06/26/18 08:09 MCHC 33.1 g/dL (33.0-37.0) 06/26/18 08:09 RDW 16.4 % (11.5-14.5) H 06/26/18 08:09 Plt Count 185 K/uL (130-400) 06/26/18 08:09 MPV 8.9 fL (7.2-11.7) 06/26/18 08:09 Neut % (Auto) 55.8 % (50.0-75.0) 06/26/18 08:09 Lymph % (Auto) 28.7 % (20.0-40.0) 06/26/18 08:09 Placer % (Auto) 8.6 % (0.0-10.0) 06/26/18 08:09 Eos % (Auto) 5.4 % (0.0-4.0) H 06/26/18 08:09 Baso % (Auto) 1.5 % (0.0-2.0) 06/26/18 08:09 Neut # (Auto) 2.4 K/uL (1.8-7.0) 06/26/18 08:09 Lymph # (Auto) 1.2 K/uL (1.0-4.3) 06/26/18 08:09 Placer # (Auto) 0.4 K/uL (0.0-0.8) 06/26/18 08:09 Eos # (Auto) 0.2 K/uL (0.0-0.7) 06/26/18 08:09 Baso # (Auto) 0.1 K/uL (0.0-0.2) 06/26/18 08:09 D-Dimer, Quantitative 356 ng/mlDDU (0-243) H 06/25/18 01:35 Puncture Site Lra 06/26/18 09:33 pCO2 33 mm/Hg (35-45) L 06/26/18 09:33 pO2 66 mm/Hg (80-100) L 06/26/18 09:33 HCO3 20.2 mmol/L (21-28) L 06/26/18 09:33 ABG pH 7.36 (7.35-7.45) 06/26/18 09:33 ABG Total CO2 19.6 mmol/L (22-28) L 06/26/18 09:33 ABG O2 Saturation 96.1 % (95-98) 06/26/18 09:33 ABG Base Excess -5.9 mmol/L (-2.0-3.0) L 06/26/18 09:33 Franco Test Pos 06/26/18 09:33 ABG Potassium 4.3 mmol/L (3.6-5.2) 06/26/18 09:33 A-a O2 Difference 42.0 mm/Hg 06/26/18 09:33 Respiratory Index 0.6 06/26/18 09:33 Sodium 139.0 mmol/l (132-148) 06/26/18 09:33 Chloride 112.0 mmol/L (98-107) H 06/26/18 09:33 Glucose 189 mg/dl (75-110) H 06/26/18 09:33 Lactate 0.9 mmol/L (0.7-2.1) 06/26/18 09:33 FiO2 21.0 % 06/26/18 09:33 Sodium 139 mmol/L (132-148) 06/26/18 08:09 Potassium 4.8 mmol/L (3.6-5.2) 06/26/18 08:09 Chloride 112 mmol/L (98-107) H 06/26/18 08:09 Carbon Dioxide 18 mmol/L (22-30) L 06/26/18 08:09 Anion Gap 14 (10-20) 06/26/18 08:09 BUN 52 mg/dL (9-20) H 06/26/18 08:09 Creatinine 2.6 mg/dL (0.8-1.5) H 06/26/18 08:09 Est GFR ( Amer) 32 06/26/18 08:09 Est GFR (Non-Af Amer) 26 06/26/18 08:09 POC Glucose (mg/dL) 105 mg/dL (65-110) 06/26/18 15:11 Random Glucose 165 mg/dL (75-110) H 06/26/18 08:09 Calcium 8.4 mg/dl (8.6-10.4) L 06/26/18 08:09 Phosphorus 4.7 mg/dL (2.5-4.5) H 06/25/18 11:09 Magnesium 1.9 mg/dL (1.6-2.3) 06/25/18 11:09 Total Bilirubin 0.6 mg/dL (0.2-1.3) 06/26/18 08:09 AST 26 U/L (17-59) 06/26/18 08:09 ALT 44 U/L (21-72) 06/26/18 08:09 Alkaline Phosphatase 93 U/L (38-126) 06/26/18 08:09 Total Creatine Kinase 72 U/L (55-170) 06/25/18 19:23 CK-MB (Mass) 1.84 ng/mL (0.0-3.38) 06/25/18 19:23 Troponin I < 0.0120 ng/mL (0.00-0.120) 06/25/18 19:23 NT-Pro-B Natriuret Pep 4830 pg/mL (0-900) H 06/25/18 01:35 Total Protein 7.4 g/dL (6.3-8.3) 06/26/18 08:09 Albumin 3.3 g/dL (3.5-5.0) L 06/26/18 08:09 Globulin 4.1 gm/dL (2.2-3.9) H 06/26/18 08:09 Albumin/Globulin Ratio 0.8 (1.0-2.1) L 06/26/18 08:09 Total T3 0.835 nmol/L (1.49-2.60) L 06/25/18 01:35 TSH 3rd Generation 2.19 mIU/L (0.46-4.68) 06/25/18 01:35 Arterial Blood Potassium 4.3 mmol/L (3.6-5.2) 06/26/18 09:33 Attending/Attestation - Attestation I have personally seen and examined this patient.: Yes I have fully participated in the care of the patient.: Yes I have reviewed all pertinent clinical information, including history, physical exam and plan: Yes Notes (Text): Patient seen, examined and case discussed with day-time resident. Patient denies acute complaints. Discussed with RN, patient did not receive CPAP last night in spite of order. Patient did complete 6 minute with the physical therapist today; oxygen status 96% while walking no supplemental oxygen; repeat ABG improvement on oxygen. Discussed with pulmonary, patient will need a sleep study which can be completed as outpatient; and patient recommended to follow-up outpatient ENT for sinusitis. Patient while hospitalized received Naficillin given it is a cheaper option; he will need to complete rest of his doses of Cubcin to complete treatment for bacteremia. No new medications upon discharge. Patient to keep PICC line to be able to complete his outpatient antibiotics. Patient re-educated regarding fluid restriction in light of his heart failure. This is a summary of patient's hospitalization. Please refer to EMR for further detail of record. Discharge Diagnoses: 1) Apnea Assessment/Plan * MADAY X3: negative; ekg shows he is paced * P02: 55-->66 on abg * 6 min test: 96% oxygenation no supplement used * patient has completed INA in last hospitalization 05/22 no pulmonary hypertension noted and completed V/Q which was low perfusion/diffusion probability. * Chest xray: no active disease * Head CT (06/25/18); no evidence of acute sinusitis. no intracranial mass, hemorrhage, or evidence of acute infarct. * Patient will need referral to pulmonary as outpatient and to outpatient sleep study for assessment for sleep apnea 2) Sepsis with Staph aureus bacteremia Assessment/Plan * improving- suspect source is cellulitis due to R foot amputation site, ruled out endocarditis, osteomyelitis from last admission * white count improved * Workup from last admission: * TTE: EF 26%, no vegetations * INA: moderately reduced EF, no vegetations or thrombi * Blood Cx (05/27): Micrococcus species x2 * Repeat Blood Cx (05/28, 05/30, 06/03): Staph aureus x5 * Repeat Blood Cx (06/02, 06/06) no growth * Urine, stool Cx no growth * Certec scan negative * R foot XR: no evidence of osteomyelitis * LE arterial and venous studies: no significant abnormalities per vasc surgery * 3 view bone scans of b/l LEs: no evidence of osteomyelitis, possible R foot cellulitis * Punch biopsies from R foot- hyperkeratosis * PICC in RUE 06/10 * Nafcillin 2 g IV Q4H- started 06/02/18 switched to Daptomycin last admission on discharge * ID states OK to switch to once daily daptomycin in last admission. Cubcin 500mg IVPB Q48H for 11 doses total. (4 dose is due today) * Patient to resume IV Cubcin and complete rest of his dosing at the outpatient transfusion center. 3) History of Anemia of Chronic Disease Assessment/Plan * FOBT negative on 06/05 * %: 20 saturation, TIBC: 247, Ferritin: 281, iron: 48 4) Hypertension Assessment/Plan * Coreg 25 mg PO BID * Lasix to 40 mg PO BID * Hydralazine 100mg PO BID * Imdur 60 mg PO daily * ACEI/ARB contraindicated due to EL 5) Renal insufficiency * Avoid ACEI/ARB and other nephrotoxic drugs * Renally dose meds * Maintain normotension * No IVF due to CHF * Most recent UA 06/13 negative * GN work-up negative 5) LUE superficial phlebitis * Apply warm compress x30 minutes Q6H * superficial phlebitis 6) R eye conjunctivitis-Resolved 7) Secondary hyperparathyroidism- 2/2 kidney disease * Elevated PTH (153), Low Ca, Elevated Ph * Low Vit D (<12.5) * Phoslo 667 mg PO BID * Ergocalciferol 50,000 QWK 8) History of Systolic heart failure (HFrEF), chronic- s/p AICD, does not appear to be acute exacerbation * BNP 11,300 * improved * Echo: EF 26% * Strict I's & O's * Daily weights * Fluid restriction <1200 mL/day * ASA 81 mg PO daily * Coreg 25 mg PO BID * Lasix 40 mg PO BID * Hydralazine 100 mg PO TID * Isosorbide nitrate 60 mg PO daily 9) Type 2 diabetes mellitus, chronic * A1c 7.8 * Hypoglycemia protocol * Accuchecks ACHS with ISS * Novolog 70/30 20 units SC ACB * Novolog 70/30 10 units SC HS * Novolog insulin sliding scale ACHS 10. Dyslipidemia, chronic * Choles 112, LDL<30, HDL 12, TG 320-765 (suspect 2nd value is not fasting) * held Crestor 5 mg PO QHS; because patient is on Cubcin reduce risk of myopathy 11. Elevated D-dimer (1468)- suspect 2/2 kidney disease * V/Q scan: low probability of PE 12. Transaminitis resolved 13. Hyponatremia, resolved 14. Thrombocytopenia, resolved 15. Ppx: * Heparin 5000 units subq12
[2018-06-26 16:07] VITALS: BP 119/67; PULSE 65; TEMP 97.8; O2SAT 99
--- NOTE | 2018-06-26 17:36 | PCM.HF ---
Heart Failure Core Measure - Heart Failure Ejection Fraction: Less Than 40 % Left Ventricular Function to be assessed after discharge: Yes MARLENE Inhibitor Prescribed: No Contraindication/Reason for not providing: renal insuffiency Beta-Esperanza Prescribed: Carvedilol Angiotensin II Receptor Esperanza Prescribed: No Contraindication/Reason for not providing: renal insuffiency AnticoagulationTherapy for Atrial Fibrillation/Atrialflutter: No Contraindication/Reason for not providing: not clinically indicated Aldosterone Antagonist Prescribed: No Contraindication/Reason for not providing: not clinically indicated Hydralazine Nitrate Prescribed: Yes Implantable Cardioverter Defibrillator Therapy: Yes Cardiac Resynchronization Therapy Prescribed: No Contraindication/Reason for not providing: not clinically indicated - Follow up Will be discharged to: Home Follow Up Date (must be within 7 days from discharge): 07/03/18 Follow Up Time: 09:00
--- NOTE | 2018-06-27 20:54 | CARD ---
APPROVED REPORT Date of service: 06/25/2018 EKG Measurement Heart [id number] <Conclusion> Atrial-sensed ventricular-paced rhythm Abnormal ECG
--- NOTE | 2018-06-27 20:58 | CARD ---
APPROVED REPORT Date of service: 06/25/2018 EKG Measurement Heart [id number] <Conclusion> Atrial-sensed ventricular-paced rhythm Abnormal ECG
== END 2018-06-26 17:04 | disposition home or self-care (01) ==
LOC: C.ER 01:04 → C.5S 03:36
PROVIDERS: ADMIT Family Medicine; ATTEND Family Medicine
DX: G47.33 Obstructive sleep apnea (adult) (pediatric) (principal); I25.10 Atherosclerotic heart disease of native coronary artery without angina pectoris; I50.22 Chronic systolic (congestive) heart failure; I11.0 Hypertensive heart disease with heart failure; E78.00 Pure hypercholesterolemia, unspecified; E10.9 Type 1 diabetes mellitus without complications; E78.5 Hyperlipidemia, unspecified; B95.61 Methicillin susceptible Staphylococcus aureus infection as the cause of diseases classified elsewhere; A41.2 Sepsis due to unspecified staphylococcus; D63.8 Anemia in other chronic diseases classified elsewhere; D69.6 Thrombocytopenia, unspecified; H10.9 Unspecified conjunctivitis; J01.90 Acute sinusitis, unspecified; J32.0 Chronic maxillary sinusitis; I80.9 Phlebitis and thrombophlebitis of unspecified site; R79.1 Abnormal coagulation profile; Z79.82 Long term (current) use of aspirin; Z83.3 Family history of diabetes mellitus; Z79.899 Other long term (current) drug therapy; Z91.19 Patient's noncompliance with other medical treatment and regimen; Z79.4 Long term (current) use of insulin; Z95.0 Presence of cardiac pacemaker; Z89.429 Acquired absence of other toe(s), unspecified side; Z95.810 Presence of automatic (implantable) cardiac defibrillator
CPT/HCPCS: 36415; 70450; 71045; 80053; 82803; 82948; 83735; 83880; 84100; 84443; 84480; 84484; 85025; 85378; 97116; 97161; 99285; G0378; G8978; G8979; G8980; J1644

== ENCOUNTER 2018-07-25 18:08 | Outpatient (CLI) | payer SELFPAY | END 2018-07-25 18:09 | disposition home or self-care (01) | LOC: C.SLEEP 18:09 ==

== ENCOUNTER 2018-08-01 18:24 | Outpatient (CLI) | payer SELFPAY | END 2018-08-01 18:25 | disposition home or self-care (01) | LOC: C.SLEEP 18:25 ==